=== PATIENT | female | born 1970 | race Caucasian/White ===

== ENCOUNTER 2018-05-16 18:04 | Emergency (ER) | payer OTHER, SELFPAY ==
[2018-05-16 18:05] VITALS: BP 159/102; PULSE 92; RESP 16; TEMP 36.7; O2SAT 99; BMI 38.7
[2018-05-16 18:41] LABS: Mucous, Urine 0 SEEN /hpf (<or=2+)
[2018-05-16 18:48] LABS: Color, Urine Brown (Yellow); Glucose, Dipstick Normal (Normal); Ketone-Dipstick 5 mg/dl (Negative); Leukocyte Esterase-Dipstick 500 /ul (Negative); Nitrite-Dipstick Positive (Negative); Occult Blood-Urine 250 /ul (Negative); Protein-Dipstick 100 mg/dl (Negative); Urine Clarity Cloudy (Clear); Urine Urobilinogen 1 mg/dl (Normal)
[2018-05-16 18:55] LABS: Internal QC Validated? YES +Cl - CLEAR BKGD; Pregnancy, Urine Negative Negative
[2018-05-16 18:56] LABS: Urine Bilirubin Dipstick 1 mg/dL (Negative)
[2018-05-16 19:10] LABS: Red Blood Cells-Urine > 100 SEEN /hpf (0-5); White Blood Cells >100 SEEN /hpf (0-5)
[2018-05-16 19:11] LABS: Bacteria 1+ /hpf (None Seen); Squamous Epithelial Cells - UA 0-5 SEEN /hpf (5-10)
--- NOTE | 2018-05-16 19:17 | ED.DCSUM_ITS ---
- ER Visit Summary Date of Service: 05/16/18 Chief Complaint: UTI History of Present Illness: The patient is a 47 F with burning and frequency when she urinates. This all started today. Nothing brought in on or made it worse. Nothing seems to make it better. She had similar symptoms in the past with a urinary tract infection. Physical Examination: Vital signs unremarkable except for a blood pressure of 159/102. Nontoxic and in no acute distress. Back is nontender. Skin appears normal. Test Results: test negative. Urinalysis reflects a UTI. Emergency Department Course and Treatment: Patient was treated with a dose of Keflex here. She was given a prescription. Follow-up with primary care to recheck. Treatment Plan: As above Disposition: Discharged Impression: 1. Acute cystitis This note was generated with [employer] dictation software. It may contain incorrect words, spelling, and punctuation that were not noted in review of the chart prior to signing ED Disposition - Plan for ED Patient: Chief Complaint: Complaint Referrals: Abel Humphries, CATIA-C [Primary Care Provider] -
--- NOTE | 2018-05-16 19:18 | DCINST.ED_ITS ---
ED Disposition - Plan for ED Patient: Chief Complaint: Complaint Instructions: ED UTI Cystitis Female Prescriptions: Cephalexin [Keflex] 500 mg PO Q6 #28 cap Ibuprofen [Motrin] 800 mg PO TID PRN PRN #20 tab PRN Reason: Pain Referrals: Abel Humphries, LIAISON OFFICER-C [Primary Care Provider] -
[2018-05-16] MEDS: Cephalexin 250 MG Capsule 500 MG PO (19:42)
[2018-05-16 19:44] VITALS: BP 127/86; PULSE 73; RESP 18; O2SAT 95
== END 2018-05-16 19:45 | disposition home or self-care (01) ==
LOC: ED 18:47
PROVIDERS: Emergency Provider Emergency Medicine; Family Provider Nurse Practitioner Family; PCP Nurse Practitioner Family
DX: N30.00 Acute cystitis without hematuria (principal); B96.89 Other specified bacterial agents as the cause of diseases classified elsewhere; Z87.440 Personal history of urinary (tract) infections; I10 Essential (primary) hypertension
CPT/HCPCS: 81001; 81025; 99283

== ENCOUNTER 2018-12-31 23:08 | Emergency (ER) | payer OTHER, SELFPAY ==
[2018-12-31 23:10] VITALS: BP 153/99; PULSE 81; RESP 16; TEMP 36.7; O2SAT 99; BMI 41.3
--- NOTE | 2018-12-31 23:28 | ED.VISSUMM ---
- ER Visit Summary Date of Service: 12/31/18 Chief Complaint: Wedding ring stuck History of Present Illness: The patient is a 48 F who presents for wedding ring removal after her wedding ring got stuck on her left ring finger. Patient was trying to remove it without any success. Her finger swelled up instead and she cannot get it off anymore. She denies any other complaints other than pain and swelling of the finger. Physical Examination: Patient is awake and alert in no distress. Patient has a wedding ring on the left ring finger with distal erythema and edema, small amount of abrasion and contusion noted from ring removal attempts. Sensation and motor function intact. Remainder of exam unremarkable. Test Results: [] Emergency Department Course and Treatment: The base of the finger was cleansed and a digital block was performed with 1% lidocaine. Good anesthesia was achieved. The ring was then removed by compressing the distal finger with the elastic band from a nonrebreather, tucking it under the ring, and slowly unraveling the nonrebreather strap which progressed the ring distally over the PIP joint. The ring was very tight fitting, and in the process of going over the PIP, it did result in some further skin abrasions and contusions. Patient's tetanus was updated after this procedure. The finger was then cleansed and bacitracin ointment was applied and dressing was applied. Patient was given wound care instructions. After the procedure, patient had active range of motion of the finger and cap refill was brisk. Anesthesia still present from the digital block. Patient discharged home with the ring removed and intact. Treatment Plan: [] Disposition: [] Impression: [Wedding ring removal, skin abrasion and contusion This note was generated with [employer] dictation software. It may contain incorrect words, spelling, and punctuation that were not noted in review of the chart prior to signing ED Disposition - Plan for ED Patient: Disposition: Home or Assisted Living Instructions: Skin Avulsion Referrals: Abel Humphries NP-C [Primary Care Provider] - Additional Instructions: Your ring was removed tonight. In the process of removing it, your finger got some abrasions and contusions. Your tetanus has been updated. Please keep the finger clean and protected with bandaging. Apply antibiotic ointment twice daily or after washing the area. Apply ice to help with swelling and pain. Use [id number] pain medication as needed. If you have any worsening of your condition or any new concerning symptoms, please return immediately to the emergency department for another evaluation.
[2019-01-01] MEDS: Diphth,Pertuss(Acell),Tet Vac 0.5 ML Vial IM (00:38)
== END 2019-01-01 00:40 | disposition home or self-care (01) ==
PROVIDERS: Emergency Provider Emergency Medicine; Family Provider Nurse Practitioner Family; PCP Nurse Practitioner Family
DX: S60.445A External constriction of left ring finger, initial encounter (principal); S60.042A Contusion of left ring finger without damage to nail, initial encounter; S60.415A Abrasion of left ring finger, initial encounter; W49.04XA Ring or other jewelry causing external constriction, initial encounter
CPT/HCPCS: 64450; 90471; 90715; 99282

== ENCOUNTER 2019-01-10 21:58 | Emergency (ER) | payer OTHER, SELFPAY ==
[2019-01-10 21:59] VITALS: BP 145/107; PULSE 106; RESP 15; TEMP 36.7; O2SAT 99; BMI 41.3
[2019-01-10 22:19] LABS: Bacteria 0 SEEN /hpf (None Seen); Mucous, Urine 0 SEEN /hpf (<or=2+)
[2019-01-10 22:22] LABS: Color, Urine Yellow (Yellow); Glucose, Dipstick Normal (Normal); Ketone-Dipstick 5 mg/dl (Negative); Leukocyte Esterase-Dipstick 500 /ul (Negative); Nitrite-Dipstick Negative (Negative); Occult Blood-Urine 250 /ul (Negative); Protein-Dipstick 30 mg/dl (Negative); Urine Bilirubin Dipstick Negative (Negative); Urine Clarity Sl. Cloudy (Clear); Urine Urobilinogen 1 mg/dl (Normal)
[2019-01-10 22:29] LABS: Amorphous Sediment 1+ URATE; Internal QC Validated? YES +Cl - CLEAR BKGD; Pregnancy, Urine Negative Negative; Red Blood Cells-Urine 50-100 SEEN /hpf (0-5); Squamous Epithelial Cells - UA 0-5 SEEN /hpf (5-10); White Blood Cells 50-100 SEEN /hpf (0-5)
--- NOTE | 2019-01-10 23:30 | ED.DCSUM_ITS ---
- ER Visit Summary Date of Service: 01/10/19 Chief Complaint: Dysuria History of Present Illness: The patient is a 48 F who states that yesterday she began to feel a small amount of dysuria and frequency. This is gotten worse today. She feels an incomplete bladder emptying described as having to urinate frequently with small amounts. She believes she is also seen some blood in the urine. No fevers. No back pain. No nausea or vomiting. She is only had 2 prior UTIs in the past. Medical history includes hypertension. She is a non- smoker. Physical Examination: Afebrile vital signs stable Gen: Well-nourished well-developed Head: Normocephalic atraumatic Eyes: Perrl EOMI ENT: TMs clear no rhinorrhea moist mucous membranes Neck: Supple no lymphadenopathy no JVD nontender CVS: Regular rate rhythm no murmurs normal S1-S2 Respiratory: No distress clear to auscultation bilaterally chest nontender Abdomen: Soft nontender nondistended normal bowel sounds no masses Back: Nontender Extremity: Nontender no edema Skin: Normal color no rash Neuro: alert orientated ?3 CN II-XII intact normal strength sensation Psych: Normal affect normal mood Test Results: Urinalysis demonstrated 50-100 red blood cells 50-100 white blood cells 0-5 epithelial cells and 0 bacteria. Leukocyte esterase positive nitrate negative. test negative. Emergency Department Course and Treatment: Patient was started on Macrobid and Pyridium. Urine culture will be sent. Return if worsening or concerns follow- up with primary care if not improving Impression: 1. Acute cystitis This note was generated with [employer] dictation software. It may contain incorrect words, spelling, and punctuation that were not noted in review of the chart prior to signing ED Disposition - Plan for ED Patient: Disposition: Home or Assisted Living Instructions: Bladder Infection, Female (Adult) Prescriptions: Nitrofurantoin Macrocrystals [Macrobid] 100 mg PO Q12 #10 cap Prescription Printed Phenazopyridine HCl [Pyridium] 200 mg PO TID #6 tab Prescription Printed Referrals: Abel Humphries, RN PHYSICIAN OFFICE-C [Primary Care Provider] - 1 Week if not improving
[2019-01-10] MEDS: Nitrofurantoin Macrocrystals 100 MG Capsule PO (23:41)
[2019-01-10] MEDS: Phenazopyridine 95 MG Tablet 190 MG PO (23:41)
[2019-01-10 23:47] VITALS: RESP 14; RESP 16
== END 2019-01-10 23:49 | disposition home or self-care (01) ==
LOC: ED 23:44
PROVIDERS: Emergency Provider Emergency Medicine; Family Provider Nurse Practitioner Family; PCP Nurse Practitioner Family
DX: N30.00 Acute cystitis without hematuria (principal); I10 Essential (primary) hypertension
CPT/HCPCS: 81001; 81025; 87077; 87086; 87088; 87186; 99282

== ENCOUNTER → 2019-01-29 07:58 | Outpatient (CLI) | payer OTHER, SELFPAY ==
[2019-01-10 21:59] VITALS: BMI 41.3
[2019-01-29 09:08] LABS: Hematocrit 41.3 % (37-47); Hemoglobin 13.5 g/dL (12.0-15.0); Mean Corp Hgb Conc 32.7 g/dL (32-36); Mean Corpuscular Volume 85.7 fL (81-99); Mean Platelet Vol. 9.6 fl (6.2-12.0); Platelet Count 269 K/mm3 (150-450); RBC Distribution Width CV 13.5 % (11.6-14.6); RBC Distribution Width SD 41.9 fl (35.1-43.9); Red Blood Count 4.82 M/mm3 (4.2-5.4); White Blood Count 6.9 K/mm3 (4.4-11.0)
[2019-01-29 09:41] LABS: ALB/GLOB Ratio 0.8 RATIO (0.9-2.4); AST(SGOT) 11 U/L (15-37); Alanine Aminotransfer ALT/SGPT 24 U/L (13-56); Albumin, Serum 3.4 g/dL (3.2-5.0); Alkaline Phosphatase 111 U/L (45-117); Anion Gap 5 (5-15); BUN 24 mg/dL (7-18); BUN/Creat Ratio 25.1 RATIO (10-20); Calcium,Total 8.9 mg/dL (8.5-10.1); Chloride 108 mmol/L (98-107); Cholesterol 167 mg/dL (200); Creatinine, Serum 0.96 mg/dL (0.55-1.02); EST Glomerular Filtration Rate 66 mL/min (>60); Est Glom Filt Rate - Afr Amer 80 mL/min (>60); Globulin 4.3 g/dL (2.2-4.2); Glucose 86 mg/dL (74-106); High Density Lipoprotein 39 mg/dL; Potassium 4.1 mmol/L (3.5-5.1); Protein, Total 7.7 g/dL (6.4-8.2); Sodium Level 143 mmol/L (136-145); Triglycerides 128 mg/dL; Very Low Density Lipoprotein 26 mg/dL (5-40)
== END ==
PROVIDERS: Family Provider Nurse Practitioner Family; PCP Nurse Practitioner Family; Referring Provider Nurse Practitioner Family; Visit Provider Nurse Practitioner Family
DX: Z13.220 Encounter for screening for lipoid disorders (principal); I10 Essential (primary) hypertension
CPT/HCPCS: 36415; 80053; 80061; 85027

== ENCOUNTER 2019-05-13 14:48 | Emergency (ER) | payer OTHER, SELFPAY ==
[2019-05-13 14:49] VITALS: BP 160/99; PULSE 93; RESP 93; TEMP 36.8; O2SAT 18; BMI 42.4
--- NOTE | 2019-05-13 15:08 | ED.DCSUM_ITS ---
History of Present Illness Chief Complaint: Vag Bleeding Informant: Patient Onset: Weeks Context: Gradual Onset Timing: Continuous Current Severity: Moderate Maximum Severity: Moderate Narrative: The patient presents to the emergency department heavy vaginal bleeding. She states is been going on for the past 6 weeks. She will follow with her primary care. She states that she had an outpatient ultrasound which demonstrated a thickened endometrium. She was started on some medication but she cannot remember what it was. She states that slow the bleeding but it never stopped. She states since being off the medication, her bleeding has no increased. She states that she is going through a pad an hour. She denies any abdominal pain or cramping. She is not on anticoagulants. She is scheduled to see RESTAURANT KITCHEN AND SERVICE MANAGER next week but was concerned with the amount of bleeding. Prior similar symptoms: Yes Recent Illness/Hospitalization: No Past Medical History - Allergies and Home Meds Allergies/Adverse Reactions: Allergies No Known Allergies Allergy (Verified 05/13/19 14:49) Primary Care Physician: Lalita Spicer MD [STAFF PHYSICIAN] - Prior records reviewed: Yes Past Medical History: - - Hypertension Surgical History: - - Smoking Status: Never smoker - Family History Paternal Family History: Family History (Last Updated 11/21/17 @ 11:39 by Marta Carter) Other Breast cancer Family History: Reports: - - no sig PFMHx of CAD in 50's (+ in 60's and up) Review of Systems General: Denies: Chills, Fever, Sweats Eyes: Denies: Visual changes - bilaterally, Diplopia ENT: Denies: Rhinorrhea, Sore throat Cardiovascular: Denies: Chest pain, Palpitations Respiratory: Denies: Dyspnea, Cough, Dyspnea on exertion Gastrointestinal: Denies: Abdominal pain, Nausea, Vomiting, Diarrhea, Melena, Hematochezia Genitourinary: Denies: Dysuria, Hematuria, Frequency Musculoskeletal: Denies: Back pain, Extremity Pain Skin: Denies: Rash, Wounds Neurological: Denies: Headache, Weakness, Numbness Psych: Denies: Depression Endocrine: Denies: Polyuria Hematologic: Denies: Easy bruising Physical Exam Vital Signs/Narrative: Vital Signs Temp Pulse Resp BP Pulse Ox 05/13/19 14:49 98.3 F 93 93 H 160/99 H 18 Inital Vital Signs reviewed: Yes General: Well nourished, Well developed, No Acute Distress Head: Normocephalic, Atraumatic Eyes: Perrl, EOMI ENT: Moist mucous membranes, No rhinorrhea Neck: Supple, Nontender Cardiovascular: Regular rate, Regular rhythm, No murmurs Respiratory: No distress, CTA bilaterally, Chest nontender Abdomen: Soft, Nontender, Nondistended, Normal bowel sounds Back: Nontender, Normal Inspection Extremities: Nontender, No edema Skin: Normal color, No rash Neurological: Alert, Oriented x3, Cranial nerves II-XII grossly intact, Normal Strength, Normal Sensation Psychological: Normal affect, Normal Mood Diagnostic/Tx/Re-eval Abnormal Lab Results 05/13/19 05/13/19 05/13/19 15:15 15:15 15:25 WBC 7.8 RBC 4.38 Hgb 12.3 Hct 37.6 MCV 85.8 MCH 28.1 MCHC 32.7 RDW Std Deviation 42.5 RDW Coeff of Kristyn 13.5 Plt Count 271 MPV 9.6 Immature Gran % (Auto) 0.300 Neut % (Auto) 64.5 Lymph % (Auto) 27.6 [place] % (Auto) 5.8 Eos % (Auto) 1.2 Baso % (Auto) 0.6 Absolute Neuts (auto) 5.0 Absolute Lymphs (auto) 2.14 Nucleated RBC % 0 Atypical Lymphocytes 1+ Platelet Estimate ADEQUATE RBC Morphology NORM C+C Sodium 140 Potassium 4.0 Chloride 108 H Carbon Dioxide 25.0 Anion Gap 7 BUN 19 H Creatinine 0.94 Estim Creat Clear Calc 71.95 Est GFR (MDRD) Af Amer 82 Est GFR (MDRD) Non-Af 68 BUN/Creatinine Ratio 20.3 H Glucose 106 Calcium 8.3 L Total Bilirubin 0.50 AST 19 ALT 16 Alkaline Phosphatase 101 Total Protein 7.4 Albumin 3.4 Globulin 4.0 Albumin/Globulin Ratio 0.8 L Urine Test Negative - Medical Decision Making I was able to get the results of the patient's ultrasound. She had a prominent endometrium at 23 mm, but no significant dangerous findings. Hemoglobin was obtained was negative. I did discuss the patient with Dr. Quinonez, the patient's baggagemaster. We are going to start the patient on TXA. She is going to be seen in the office on Thursday. The patient is comfortable with this plan of care. Impression 1. Dysfunctional uterine bleeding ED Disposition - Plan for ED Patient: Disposition: Home or Assisted Living Instructions: Dysfunctional Uterine Bleeding Prescriptions: Tranexamic Acid 1,300 mg PO Q8 #20 tab Prescription Printed Referrals: Lalita Spicer MD [STAFF PHYSICIAN] -
[2019-05-13 15:28] LABS: Absolute Lymphocyte Count 2.14 X10^3/uL (0.83-4.51); Basophil# 0.05 X10^3/uL; Basophil% 0.6 % (0-1); Eosinophil# 0.09 X10^3/uL; Eosinophils% 1.2 % (0-5); Hematocrit 37.6 % (37-47); Hemoglobin 12.3 g/dL (12.0-15.0); Lymphocyte # 2.14 X10^3/ul (4.0); Lymphocyte % 27.6 % (19-41); Mean Corp Hgb Conc 32.7 g/dL (32-36); Mean Corpuscular Hgb 28.1 pg (27.0-32.0); Mean Corpuscular Volume 85.8 fL (81-99); Mean Platelet Vol. 9.6 fl (6.2-12.0); Monocyte# 0.45 X10^3/uL; Monocyte% 5.8 % (0-10); NRBC Flagged by Analyzer 0 % (0-5); Neutrophil % 64.5 % (47-70); POSITIVE MORPHOLOGY YES; Platelet Count 271 K/mm3 (150-450); RBC Distribution Width CV 13.5 % (11.6-14.6); RBC Distribution Width SD 42.5 fl (35.1-43.9); Red Blood Count 4.38 M/mm3 (4.2-5.4); White Blood Count 7.8 K/mm3 (4.4-11.0)
[2019-05-13 15:56] LABS: Internal QC Validated? YES +Cl - CLEAR BKGD; Pregnancy, Urine Negative Negative
[2019-05-13 15:56] LABS: ALB/GLOB Ratio 0.8 RATIO (0.9-2.4); AST(SGOT) 19 U/L (15-37); Alanine Aminotransfer ALT/SGPT 16 U/L (13-56); Albumin, Serum 3.4 g/dL (3.2-5.0); Alkaline Phosphatase 101 U/L (45-117); Anion Gap 7 (5-15); BUN 19 mg/dL (7-18); BUN/Creat Ratio 20.3 RATIO (10-20); Calcium,Total 8.3 mg/dL (8.5-10.1); Chloride 108 mmol/L (98-107); Creatinine, Serum 0.94 mg/dL (0.55-1.02); EST Glomerular Filtration Rate 68 mL/min (>60); Est Glom Filt Rate - Afr Amer 82 mL/min (>60); Estimated Creatinine Clearance 71.95 ml/min; Glucose 106 mg/dL (74-106); Protein, Total 7.4 g/dL (6.4-8.2); Sodium Level 140 mmol/L (136-145)
[2019-05-13 16:11] LABS: Differential Indicated SCAN CRITERIA MET
[2019-05-13 16:12] LABS: Atypical Lymphocyte 1+ %; Platelet Estimate ADEQUATE (ADEQ); Red Cell Morphology NORM C+C NORMAL (NORM C&C)
[2019-05-13 16:31] VITALS: PULSE 84; RESP 16; O2SAT 98
== END 2019-05-13 16:31 | disposition home or self-care (01) ==
LOC: ED 15:05
PROVIDERS: Emergency Provider Emergency Medicine; Family Provider Nurse Practitioner Family; PCP Nurse Practitioner Family
DX: N93.8 Other specified abnormal uterine and vaginal bleeding (principal); I10 Essential (primary) hypertension
CPT/HCPCS: 80053; 81025; 85025; 99283; A4216

== ENCOUNTER → 2019-08-08 07:06 | Outpatient (CLI) | payer OTHER, SELFPAY ==
[2019-08-08 07:52] LABS: Thyroid Stim Hormone (TSH) 2.32 uIU/mL (0.358-3.74)
== END ==
PROVIDERS: PCP Nurse Practitioner Family; Referring Provider Nurse Practitioner Family; Visit Provider Nurse Practitioner Family
DX: E03.9 Hypothyroidism, unspecified (principal)
CPT/HCPCS: 36415; 84439; 84443

== ENCOUNTER → 2019-11-03 06:54 | Outpatient (CLI) | payer OTHER, SELFPAY ==
[2019-11-03 07:47] LABS: Hematocrit 39.7 % (37-47); Hemoglobin 12.1 g/dL (12.0-15.0); Mean Corp Hgb Conc 30.5 g/dL (32-36); Mean Corpuscular Hgb 24.5 pg (27.0-32.0); Mean Corpuscular Volume 80.4 fL (81-99); Mean Platelet Vol. 9.7 fl (6.2-12.0); Platelet Count 295 K/mm3 (150-450); RBC Distribution Width SD 40.5 fl (35.1-43.9); Red Blood Count 4.94 M/mm3 (4.2-5.4); White Blood Count 6.7 K/mm3 (4.4-11.0)
[2019-11-03 08:15] LABS: ALB/GLOB Ratio 0.8 RATIO (0.9-2.4); AST(SGOT) 13 U/L (15-37); Alanine Aminotransfer ALT/SGPT 19 U/L (13-56); Albumin, Serum 3.3 g/dL (3.2-5.0); Alkaline Phosphatase 118 U/L (45-117); Anion Gap 4 (5-15); BUN 16 mg/dL (7-18); Calcium,Total 8.6 mg/dL (8.5-10.1); Chloride 105 mmol/L (98-107); Cholesterol 167 mg/dL (200); EST Glomerular Filtration Rate 63 mL/min (>60); Est Glom Filt Rate - Afr Amer 76 mL/min (>60); Globulin 4.3 g/dL (2.2-4.2); Glucose 91 mg/dL (74-106); High Density Lipoprotein 31 mg/dL; Potassium 3.6 mmol/L (3.5-5.1); Protein, Total 7.6 g/dL (6.4-8.2); Sodium Level 138 mmol/L (136-145); Thyroid Stim Hormone (TSH) 3.15 uIU/mL (0.358-3.74); Triglycerides 160 mg/dL; Very Low Density Lipoprotein 32 mg/dL (5-40)
== END ==
PROVIDERS: PCP Nurse Practitioner Family; Visit Provider Nurse Practitioner Family
DX: I10 Essential (primary) hypertension (principal); E78.5 Hyperlipidemia, unspecified; E03.9 Hypothyroidism, unspecified
CPT/HCPCS: 36415; 80053; 80061; 84443; 85027

== ENCOUNTER 2020-04-19 08:01 | Emergency (ER) | payer OTHER, SELFPAY ==
[2020-04-19 08:02] VITALS: BP 180/105; PULSE 84; RESP 16; TEMP 36.2; O2SAT 100; BMI 39.2
--- NOTE | 2020-04-19 08:07 | ED.DCSUM_ITS ---
History of Present Illness Chief Complaint: General Illness Informant: Patient Narrative: 49-year-old female presenting for medication refill. She states she is been out of her antidepressants as well as her hydrochlorothiazide for about a week. She tried to call her doctor's office 2 days ago and did not get a response. Yesterday she called [facility] to see if they had sent in a refill and they had not. Her blood pressures been slightly elevated although she does not have any headache, chest pain, shortness of breath, lightheadedness, dizziness or other red flag symptoms. Patient also incidentally notes that since she is in the emergency room she wants to have her left arm evaluated. She states from the left elbow down to the left wrist she gets intermittent paresthesias. This is worse when she holds her arm up on the steering wheel for an extended period time. Sometimes she has to put her arm down and it will resolve. She has had no trauma. It is not significantly painful. Patient also reports that last evening she was concerned because she abruptly woke from sleep without any other symptoms and then went back to sleep. She is not had any other problems related to this. She states that she is never happened before. - Past Medical History (1) HTN (hypertension) Status: Chronic Past Medical History - Allergies and Home Meds Allergies/Adverse Reactions: Allergies No Known Allergies Allergy (Verified 04/19/20 08:10) Primary Care Physician: Abel Humphries ASSISTANT CROSS COUNTRY COACH, ASSISTANT CROSS COUNTRY COACH-C [Primary Care Provider] - Prior records reviewed: Yes Past Medical History: - - Tension, depression, hypothyroidism Surgical History: - - Lives: Spouse/ Significant Other, With Family Smoking Status: Smoker, status unknown Alcohol: None Drugs: None - Family History Paternal Family History: Family History (Last Updated 11/21/17 @ 11:39 by Marta Carter) Other Breast cancer Family History: Reports: - - no sig PFMHx of CAD in 50's (+ in 60's and up) Review of Systems General: Denies: Chills, Fever, Sweats Eyes: Denies: Visual changes - bilaterally, Diplopia ENT: Denies: Rhinorrhea, Sore throat Cardiovascular: Denies: Chest pain, Palpitations Respiratory: Denies: Dyspnea, Cough, Dyspnea on exertion Gastrointestinal: Denies: Abdominal pain, Nausea, Vomiting, Diarrhea, Melena, Hematochezia Genitourinary: Denies: Dysuria, Hematuria, Frequency Musculoskeletal: Reports: Extremity Pain - Left forearm Skin: Denies: Rash, Abscess Neurological: Reports: Parasthesia - Left forearm. Denies: Headache Psych: Denies: Depression, Anxiety, Suicidal thoughts, Suicidal ideations Physical Exam Vital Signs/Narrative: Vital Signs Temp Pulse Resp BP Pulse Ox 04/19/20 08:02 97.2 F L 84 16 180/105 H 100 Inital Vital Signs reviewed: Yes General: Well nourished, No Acute Distress Head: Normocephalic, Atraumatic Eyes: Perrl, EOMI ENT: Moist mucous membranes, No rhinorrhea Cardiovascular: Regular rate, Regular rhythm Respiratory: No distress, CTA bilaterally Extremities: - - No reproducible tenderness to palpation of the left forearm to palpation. Flexion, extension, pronation, supination do not elicit pain. Left wrist has a negative Tinel sign. Jules's test is normal. Left hand neurovascular intact brisk cap refill all 5 fingers. Skin: Normal color, No rash, Cyanosis Neurological: Alert, Oriented x3 Psychological: Normal affect, Normal Mood Diagnostic/Tx/Re-eval - Medical Decision Making Patient presents for medication refill for her hydrochlorothiazide, sertraline, buspirone, venlafaxine. Patient states that she called her pharmacy while she was here and a prescription for the venlafaxine is already submitted. She needs prescriptions for the other 3. I did send these to the pharmacy. In regards to her paresthesia/pain in left forearm I do not believe this represents any kind of stroke or bony abnormality. I am unable to elicit it on examination. Patient requests a wrist splint for comfort. This was provided. Patient will be discharged home to follow-up with her PCP. Impression: 1. Medication refill 2. Paresthesia ED Disposition - Plan for ED Patient: Disposition: Home or Assisted Living Instructions: ED Paraesthesias Prescriptions: busPIRone [Buspar] 10 mg PO TID #90 tab Transmission Status: [id number] Hydrochlorothiazide 0 mg PO DAILY #30 capsule Hydrochlorothiazide 12.5 mg PO DAILY #30 cap Transmission Status: Pending to [id number] Sertraline HCl 25 mg PO DAILY #30 tab Transmission Status: Pending to [id number] Referrals: Yandel,Abel Mian ASSISTANT CROSS COUNTRY COACH, ASSISTANT CROSS COUNTRY COACH-C [Primary Care Provider] -
== END 2020-04-19 08:57 | disposition home or self-care (01) ==
PROVIDERS: Emergency Provider Student in an Organized Health Care Education/Training Program; PCP Nurse Practitioner Family
DX: Z76.0 Encounter for issue of repeat prescription (principal); R20.2 Paresthesia of skin; E03.9 Hypothyroidism, unspecified; I10 Essential (primary) hypertension; F32.9 Major depressive disorder, single episode, unspecified
CPT/HCPCS: 99283

== ENCOUNTER → 2020-05-05 08:22 | Outpatient (CLI) | payer OTHER, SELFPAY ==
[2020-04-19 08:02] VITALS: BMI 39.2
[2020-05-05 08:40] LABS: Hematocrit 40.5 % (37-47); Hemoglobin 12.3 g/dL (12.0-15.0); Mean Corp Hgb Conc 30.4 g/dL (32-36); Mean Corpuscular Hgb 23.6 pg (27.0-32.0); Mean Corpuscular Volume 77.6 fL (81-99); Mean Platelet Vol. 9.5 fl (6.2-12.0); Platelet Count 236 K/mm3 (150-450); RBC Distribution Width CV 15.4 % (11.6-14.6); RBC Distribution Width SD 43.4 fl (35.1-43.9); Red Blood Count 5.22 M/mm3 (4.2-5.4)
[2020-05-05 09:11] LABS: ALB/GLOB Ratio 0.8 RATIO (0.9-2.4); AST(SGOT) 29 U/L (15-37); Alanine Aminotransfer ALT/SGPT 42 U/L (13-56); Albumin, Serum 3.5 g/dL (3.2-5.0); Alkaline Phosphatase 128 U/L (45-117); Anion Gap 5 (5-15); BUN 21 mg/dL (7-18); BUN/Creat Ratio 18.9 RATIO (10-20); Calcium,Total 8.4 mg/dL (8.5-10.1); Chloride 108 mmol/L (98-107); Cholesterol 140 mg/dL (200); Creatinine, Serum 1.11 mg/dL (0.55-1.02); EST Glomerular Filtration Rate 56 mL/min (>60); Est Glom Filt Rate - Afr Amer 67 mL/min (>60); Globulin 4.5 g/dL (2.2-4.2); Glucose 98 mg/dL (74-106); High Density Lipoprotein 38 mg/dL; Potassium 3.5 mmol/L (3.5-5.1); Sodium Level 140 mmol/L (136-145); T4 Free Direct 0.96 ng/dL (0.76-1.46); Thyroid Stim Hormone (TSH) 1.21 uIU/mL (0.358-3.74); Triglycerides 69 mg/dL; Very Low Density Lipoprotein 14 mg/dL (5-40)
== END ==
PROVIDERS: PCP Nurse Practitioner Family; Referring Provider Nurse Practitioner Family; Visit Provider Nurse Practitioner Family
DX: E78.5 Hyperlipidemia, unspecified (principal); E03.9 Hypothyroidism, unspecified
CPT/HCPCS: 36415; 80053; 80061; 84439; 84443; 85027

== ENCOUNTER → 2020-11-04 08:44 | Outpatient (CLI) | payer OTHER, SELFPAY ==
[2020-11-04 09:20] LABS: Hematocrit 38.3 % (37-47); Hemoglobin 11.1 g/dL (12.0-15.0); Mean Corpuscular Hgb 23.2 pg (27.0-32.0); Mean Platelet Vol. 9.8 fl (6.2-12.0); Platelet Count 308 K/mm3 (150-450); RBC Distribution Width CV 16.2 % (11.6-14.6); RBC Distribution Width SD 46.7 fl (35.1-43.9); Red Blood Count 4.79 M/mm3 (4.2-5.4); White Blood Count 4.6 K/mm3 (4.4-11.0)
[2020-11-04 09:40] LABS: ALB/GLOB Ratio 0.8 RATIO (0.9-2.4); AST(SGOT) 13 U/L (15-37); Alanine Aminotransfer ALT/SGPT 22 U/L (13-56); Albumin, Serum 3.5 g/dL (3.2-5.0); Alkaline Phosphatase 131 U/L (45-117); Anion Gap 3 (5-15); BUN 23 mg/dL (7-18); BUN/Creat Ratio 23.3 RATIO (10-20); Calcium,Total 8.7 mg/dL (8.5-10.1); Chloride 107 mmol/L (98-107); Cholesterol 166 mg/dL (200); Creatinine, Serum 0.99 mg/dL (0.55-1.02); EST Glomerular Filtration Rate 63 mL/min (>60); Est Glom Filt Rate - Afr Amer 77 mL/min (>60); Globulin 4.5 g/dL (2.2-4.2); Glucose 96 mg/dL (74-106); High Density Lipoprotein 38 mg/dL; Potassium 3.9 mmol/L (3.5-5.1); Sodium Level 137 mmol/L (136-145); T4 Free Direct 0.92 ng/dL (0.76-1.46); Thyroid Stim Hormone (TSH) 1.83 uIU/mL (0.358-3.74); Triglycerides 94 mg/dL; Very Low Density Lipoprotein 19 mg/dL (5-40)
[2020-11-05 08:52] LABS: Vitamin D,25 Hydroxy 16.8 ng/mL
== END ==
PROVIDERS: PCP Nurse Practitioner Family; Referring Provider Nurse Practitioner Family; Visit Provider Nurse Practitioner Family
DX: I10 Essential (primary) hypertension (principal); E78.5 Hyperlipidemia, unspecified; N28.9 Disorder of kidney and ureter, unspecified; E03.9 Hypothyroidism, unspecified
CPT/HCPCS: 36415; 80053; 80061; 82306; 84439; 84443; 85027

== ENCOUNTER → 2021-05-18 07:40 | Outpatient (CLI) | payer OTHER, SELFPAY ==
[2021-05-18 07:58] LABS: Hematocrit 41.8 % (37-47); Hemoglobin 13.6 g/dL (12.0-15.0); Mean Corp Hgb Conc 32.5 g/dL (32-36); Mean Corpuscular Hgb 26.8 pg (27.0-32.0); Mean Corpuscular Volume 82.4 fL (81-99); Mean Platelet Vol. 9.1 fl (6.2-12.0); Platelet Count 256 K/mm3 (150-450); RBC Distribution Width CV 13.9 % (11.6-14.6); RBC Distribution Width SD 41.5 fl (35.1-43.9); Red Blood Count 5.07 M/mm3 (4.2-5.4); White Blood Count 5.5 K/mm3 (4.4-11.0)
[2021-05-18 08:33] LABS: ALB/GLOB Ratio 0.7 RATIO (0.9-2.4); AST(SGOT) 13 U/L (15-37); Alanine Aminotransfer ALT/SGPT 28 U/L (13-56); Albumin, Serum 3.3 g/dL (3.2-5.0); Alkaline Phosphatase 128 U/L (45-117); Anion Gap 4 (5-15); BUN 15 mg/dL (7-18); BUN/Creat Ratio 14.9 RATIO (10-20); Calcium,Total 8.8 mg/dL (8.5-10.1); Chloride 105 mmol/L (98-107); Creatinine, Serum 1.01 mg/dL (0.55-1.02); EST Glomerular Filtration Rate 62 mL/min (>60); Est Glom Filt Rate - Afr Amer 75 mL/min (>60); Globulin 4.6 g/dL (2.2-4.2); Glucose 94 mg/dL (74-106); Iron 60 ug/dL (50-170); Iron Binding Capacity,Total 320 ug/dL (250-450); Potassium 4.1 mmol/L (3.5-5.1); Protein, Total 7.9 g/dL (6.4-8.2); Sodium Level 140 mmol/L (136-145); T4 Free Direct 0.98 ng/dL (0.76-1.46); Thyroid Stim Hormone (TSH) 1.43 uIU/mL (0.358-3.74)
== END ==
PROVIDERS: PCP Nurse Practitioner Family; Visit Provider Nurse Practitioner Family
DX: I10 Essential (primary) hypertension (principal); D50.9 Iron deficiency anemia, unspecified; N28.9 Disorder of kidney and ureter, unspecified; E03.9 Hypothyroidism, unspecified
CPT/HCPCS: 36415; 80053; 83540; 83550; 84439; 84443; 85027

== ENCOUNTER → 2021-07-02 13:33 | Outpatient (CLI) | payer OTHER, SELFPAY ==
--- NOTE | 2021-07-02 13:46 | VDLE_ITS ---
Reason For Study: leg pain RIGHT GSV is normal. CFV is compressible, spontaneous, phasic, competent and demonstrates normal augmentation. FV is compressible, spontaneous, phasic, competent and demonstrates normal augmentation. POP V is compressible, spontaneous, phasic, competent and demonstrates normal augmentation. T/P Trunk is compressible. PTV is compressible. RT PerV is compressible. Procedure This is a venous duplex using B-mode, color flow and spectral Doppler. Exam performed in department. The exam was abbreviated due to the COVID 19 protocol. The exam was diagnostic. A preliminary report was called and/or faxed to Abel ZAMORA. VL/Venous Duplex US, Unilateral Interpretation Summary Deep veins of the right lower extremity are patent and compressible segmentally . There is no evidence of right lower extremity deep vein thrombosis. Valvular competence dayanara ears intact within the proximal deep venous system on the right . The right great saphenous vein a ppears patent and compressible segmentally. Ordering Physician: Abel Humphries Performed By: Dick Neely RVT
[2021-07-02 14:09] LABS: D-Dimer Quantitative (DVT/PE) 0.66 FEU/ug/m (0.27-0.49)
== END ==
PROVIDERS: PCP Nurse Practitioner Family; Referring Provider Nurse Practitioner Family; Visit Provider Nurse Practitioner Family
DX: M79.604 Pain in right leg (principal)
CPT/HCPCS: 36415; 85379; 93971

== ENCOUNTER → 2021-12-20 | Outpatient (CLI) | payer OTHER, SELFPAY ==
--- NOTE | 2021-12-20 14:53 | RAD_ITS ---
STUDY: XR Hand Min 3 Views REASON FOR EXAM: Female, 51 years old. DEQUERVAIN''S TENOSYNOVITIS TECHNIQUE: XR Hand Min 3 Views LEFT COMPARISON: None. FINDINGS: Normal radiocarpal articulation. Normal distal radioulnar joint. Normal visualized carpal bones. Normal carpal articulations Normal carpometacarpal articulation of the thumb. Normal second through fifth carpometacarpal joints. Normal metacarpi. Normal metacarpophalangeal joint of the thumb. Normal interphalangeal joint of the thumb. Normal proximal and distal phalanges of the thumb. Normal metacarpophalangeal joints of the second through fifth fingers. Normal proximal and distal interphalangeal joints of the second through fifth fingers. Normal phalanges of the second through fifth fingers. The soft tissue structures are unremarkable. RAD/Hand Min 3 Views IMPRESSION: There are no acute findings. Electronically Signed: Jeevan Wood MD at 15:22 EDT ,
== END | disposition home or self-care (01) ==
LOC: RAD 14:51
PROVIDERS: PCP Nurse Practitioner Family; Referring Provider Nurse Practitioner Family; Visit Provider Nurse Practitioner Family
DX: M65.4 Radial styloid tenosynovitis [de Quervain] (principal)
CPT/HCPCS: 73130

== ENCOUNTER → 2022-03-22 | Outpatient (CLI) | payer OTHER, SELFPAY ==
[2022-03-22 09:28] LABS: Hematocrit 42.6 % (37-47); Mean Corp Hgb Conc 32.9 g/dL (32-36); Mean Corpuscular Hgb 27.8 pg (27.0-32.0); Mean Corpuscular Volume 84.5 fL (81-99); Mean Platelet Vol. 10.6 fl (6.2-12.0); Platelet Count 306 K/mm3 (150-450); RBC Distribution Width SD 45.5 fl (35.1-43.9); Red Blood Count 5.04 M/mm3 (4.2-5.4); White Blood Count 6.1 K/mm3 (4.4-11.0)
[2022-03-22 09:57] LABS: ALB/GLOB Ratio 0.9 RATIO (0.9-2.4); AST(SGOT) 12 U/L (15-37); Alanine Aminotransfer ALT/SGPT 21 U/L (13-56); Albumin, Serum 3.8 g/dL (3.2-5.0); Alkaline Phosphatase 105 U/L (45-117); Amylase 61 U/L (25-115); Anion Gap 7 (5-15); BUN 21 mg/dL (7-18); Calcium,Total 9.3 mg/dL (8.5-10.1); Chloride 106 mmol/L (98-107); EST Glomerular Filtration Rate 62 mL/min (>60); Est Glom Filt Rate - Afr Amer 75 mL/min (>60); Globulin 4.2 g/dL (2.2-4.2); Glucose 86 mg/dL (74-106); Lipase 164 U/L (73-393); Sodium Level 141 mmol/L (136-145)
== END | disposition home or self-care (01) ==
LOC: LAB 07:52
PROVIDERS: PCP Nurse Practitioner Family; Referring Provider Nurse Practitioner Family; Visit Provider Nurse Practitioner Family
DX: R10.11 Right upper quadrant pain (principal); K82.8 Other specified diseases of gallbladder; K85.90 Acute pancreatitis without necrosis or infection, unspecified
CPT/HCPCS: 36415; 80053; 82150; 83690; 85027

== ENCOUNTER → 2022-05-17 | Outpatient (CLI) | payer OTHER, SELFPAY ==
[2022-05-17 08:28] LABS: Hematocrit 42.8 % (37-47); Hemoglobin 14.2 g/dL (12.0-15.0); Mean Corp Hgb Conc 33.2 g/dL (32-36); Mean Corpuscular Hgb 27.8 pg (27.0-32.0); Mean Corpuscular Volume 83.9 fL (81-99); Mean Platelet Vol. 9.7 fl (6.2-12.0); Platelet Count 269 K/mm3 (150-450); RBC Distribution Width CV 15.5 % (11.6-14.6); RBC Distribution Width SD 47.3 fl (35.1-43.9); White Blood Count 7.7 K/mm3 (4.4-11.0)
[2022-05-17 09:10] LABS: ALB/GLOB Ratio 0.8 RATIO (0.9-2.4); AST(SGOT) 17 U/L (15-37); Alanine Aminotransfer ALT/SGPT 31 U/L (13-56); Albumin, Serum 3.6 g/dL (3.2-5.0); Alkaline Phosphatase 125 U/L (45-117); Anion Gap 7 (5-15); BUN 19 mg/dL (7-18); BUN/Creat Ratio 21.4 RATIO (10-20); Calcium,Total 9.3 mg/dL (8.5-10.1); Chloride 107 mmol/L (98-107); Cholesterol 196 mg/dL (200); Creatinine, Serum 0.89 mg/dL (0.55-1.02); EST Glomerular Filtration Rate 71 mL/min (>60); Est Glom Filt Rate - Afr Amer 86 mL/min (>60); Globulin 4.5 g/dL (2.2-4.2); Glucose 92 mg/dL (74-106); High Density Lipoprotein 48 mg/dL; Potassium 3.7 mmol/L (3.5-5.1); Protein, Total 8.1 g/dL (6.4-8.2); Sodium Level 140 mmol/L (136-145); Thyroid Stim Hormone (TSH) 1.78 uIU/mL (0.358-3.74); Triglycerides 92 mg/dL; Very Low Density Lipoprotein 18 mg/dL (5-40)
== END | disposition home or self-care (01) ==
LOC: LAB 07:40
PROVIDERS: PCP Nurse Practitioner Family; Referring Provider Nurse Practitioner Family; Visit Provider Nurse Practitioner Family
DX: N28.9 Disorder of kidney and ureter, unspecified (principal); I10 Essential (primary) hypertension; E78.5 Hyperlipidemia, unspecified; E03.9 Hypothyroidism, unspecified; R94.5 Abnormal results of liver function studies
CPT/HCPCS: 36415; 80053; 80061; 84439; 84443; 85027

== ENCOUNTER → 2022-11-29 | Outpatient (CLI) | payer OTHER, SELFPAY ==
[2022-11-29 09:47] LABS: Hematocrit 40.9 % (37-47); Hemoglobin 13.3 g/dL (12.0-15.0); Mean Corp Hgb Conc 32.5 g/dL (32-36); Mean Corpuscular Hgb 26.9 pg (27.0-32.0); Mean Corpuscular Volume 82.6 fL (81-99); Mean Platelet Vol. 9.5 fl (6.2-12.0); Platelet Count 259 K/mm3 (150-450); RBC Distribution Width CV 14.3 % (11.6-14.6); RBC Distribution Width SD 42.7 fl (35.1-43.9); Red Blood Count 4.95 M/mm3 (4.2-5.4); White Blood Count 5.7 K/mm3 (4.4-11.0)
[2022-11-29 10:03] LABS: ALB/GLOB Ratio 0.8 RATIO (0.9-2.4); AST(SGOT) 16 U/L (15-37); Alanine Aminotransfer ALT/SGPT 22 U/L (13-56); Albumin, Serum 3.2 g/dL (3.2-5.0); Alkaline Phosphatase 157 U/L (45-117); Anion Gap 5 (5-15); BUN 20 mg/dL (7-18); BUN/Creat Ratio 23.2 RATIO (10-20); Calcium,Total 8.5 mg/dL (8.5-10.1); Chloride 107 mmol/L (98-107); Cholesterol 170 mg/dL (200); Creatinine, Serum 0.86 mg/dL (0.55-1.02); EST Glomerular Filtration Rate 74 mL/min (>60); Est Glom Filt Rate - Afr Amer 89 mL/min (>60); Globulin 4.2 g/dL (2.2-4.2); Glucose 96 mg/dL (74-106); High Density Lipoprotein 40 mg/dL; Potassium 4.3 mmol/L (3.5-5.1); Protein, Total 7.4 g/dL (6.4-8.2); Sodium Level 141 mmol/L (136-145); T4 Free Direct 0.97 ng/dL (0.76-1.46); Triglycerides 77 mg/dL; Very Low Density Lipoprotein 15 mg/dL (5-40)
[2022-11-29 10:18] LABS: Microalbumin,Random Urine < 5.0 mg/L (NO RANGE EST.)
== END | disposition home or self-care (01) ==
LOC: LAB 08:15
PROVIDERS: PCP Nurse Practitioner Family; Visit Provider Nurse Practitioner Family
DX: I10 Essential (primary) hypertension (principal); E78.5 Hyperlipidemia, unspecified; N28.9 Disorder of kidney and ureter, unspecified; E03.9 Hypothyroidism, unspecified
CPT/HCPCS: 36415; 80053; 80061; 82043; 84439; 85027

== ENCOUNTER → 2023-06-08 | Outpatient (CLI) | payer OTHER, SELFPAY ==
[2023-06-08 10:02] LABS: Hematocrit 43.1 % (37-47); Hemoglobin 13.4 g/dL (12.0-15.0); Mean Corp Hgb Conc 31.1 g/dL (32-36); Mean Corpuscular Hgb 26.1 pg (27.0-32.0); Mean Corpuscular Volume 83.9 fL (81-99); Mean Platelet Vol. 9.5 fl (6.2-12.0); Platelet Count 330 K/mm3 (150-450); RBC Distribution Width CV 14.2 % (11.6-14.6); RBC Distribution Width SD 43.6 fl (35.1-43.9); Red Blood Count 5.14 M/mm3 (4.2-5.4); White Blood Count 7.1 K/mm3 (4.4-11.0)
[2023-06-08 10:57] LABS: Microalbumin,Random Urine 9.6 mg/L (NO RANGE EST.); Microalbumin:Creatinine Ratio 6.2 mg/g CRE (<30 mg/g CRE)
[2023-06-08 11:09] LABS: ALB/GLOB Ratio 0.8 RATIO (0.9-2.4); AST(SGOT) 17 U/L (15-37); Alanine Aminotransfer ALT/SGPT 48 U/L (13-56); Albumin, Serum 3.4 g/dL (3.2-5.0); Alkaline Phosphatase 146 U/L (45-117); Anion Gap 5 (5-15); BUN 18 mg/dL (7-18); BUN/Creat Ratio 18.7 RATIO (10-20); Calcium,Total 8.5 mg/dL (8.5-10.1); Chloride 106 mmol/L (98-107); Cholesterol 190 mg/dL (200); Creatinine, Serum 0.96 mg/dL (0.55-1.02); EST Glomerular Filtration Rate 65 mL/min (>60); Est Glom Filt Rate - Afr Amer 78 mL/min (>60); Globulin 4.5 g/dL (2.2-4.2); Glucose 91 mg/dL (74-106); High Density Lipoprotein 38 mg/dL; Potassium 3.6 mmol/L (3.5-5.1); Protein, Total 7.9 g/dL (6.4-8.2); Sodium Level 140 mmol/L (136-145); T4 Free Direct 0.92 ng/dL (0.76-1.46); Triglycerides 151 mg/dL; Very Low Density Lipoprotein 30 mg/dL (5-40)
== END | disposition home or self-care (01) ==
LOC: LAB 09:12
PROVIDERS: PCP Nurse Practitioner Family; Referring Provider Nurse Practitioner Family; Visit Provider Nurse Practitioner Family
DX: I10 Essential (primary) hypertension (principal); E78.5 Hyperlipidemia, unspecified; E03.9 Hypothyroidism, unspecified; N28.9 Disorder of kidney and ureter, unspecified; E55.9 Vitamin D deficiency, unspecified
CPT/HCPCS: 36415; 80053; 80061; 82043; 82306; 82570; 84439; 84443; 85027

== ENCOUNTER → 2024-01-02 | Outpatient (CLI) | payer OTHER, SELFPAY ==
[2024-01-02 08:21] LABS: Hematocrit 42.2 % (37-47); Hemoglobin 13.3 g/dL (12.0-15.0); Mean Corp Hgb Conc 31.5 g/dL (32-36); Mean Corpuscular Volume 82.6 fL (81-99); Mean Platelet Vol. 9.7 fl (6.2-12.0); Platelet Count 281 K/mm3 (150-450); RBC Distribution Width CV 14.6 % (11.6-14.6); RBC Distribution Width SD 44.3 fl (35.1-43.9); Red Blood Count 5.11 M/mm3 (4.2-5.4); White Blood Count 5.5 K/mm3 (4.4-11.0)
[2024-01-02 08:51] LABS: ALB/GLOB Ratio 0.8 RATIO (0.9-2.4); AST(SGOT) 18 U/L (15-37); Alanine Aminotransfer ALT/SGPT 26 U/L (13-56); Albumin, Serum 3.4 g/dL (3.2-5.0); Alkaline Phosphatase 158 U/L (45-117); Anion Gap 3 (5-15); BUN 19 mg/dL (7-18); BUN/Creat Ratio 20.1 RATIO (10-20); Calcium,Total 8.7 mg/dL (8.5-10.1); Chloride 109 mmol/L (98-107); Cholesterol 173 mg/dL (200); Creatinine, Serum 0.94 mg/dL (0.55-1.02); EST Glomerular Filtration Rate 66 mL/min (>60); Est Glom Filt Rate - Afr Amer 80 mL/min (>60); Globulin 4.4 g/dL (2.2-4.2); Glucose 100 mg/dL (74-106); High Density Lipoprotein 36 mg/dL; Protein, Total 7.8 g/dL (6.4-8.2); Sodium Level 139 mmol/L (136-145); T4 Free Direct 0.84 ng/dL (0.76-1.46); Thyroid Stim Hormone (TSH) 1.75 uIU/mL (0.358-3.74); Triglycerides 111 mg/dL; Very Low Density Lipoprotein 22 mg/dL (5-40)
[2024-01-02 09:01] LABS: Microalbumin,Random Urine 9.7 mg/L (NO RANGE EST.)
[2024-01-04 08:52] LABS: Vitamin D,25 Hydroxy 26.1 ng/mL
== END | disposition home or self-care (01) ==
LOC: LAB.FUTURE 07:14 → LAB 07:17
PROVIDERS: PCP Nurse Practitioner Family; Referring Provider Nurse Practitioner Family; Visit Provider Nurse Practitioner Family
DX: I10 Essential (primary) hypertension (principal); E55.9 Vitamin D deficiency, unspecified; N28.9 Disorder of kidney and ureter, unspecified; E78.5 Hyperlipidemia, unspecified; E03.9 Hypothyroidism, unspecified
CPT/HCPCS: 36415; 80053; 80061; 82043; 82306; 82570; 84439; 84443; 85027

== ENCOUNTER 2024-06-09 11:58 | Inpatient (IN) | payer BC, SELFPAY ==
[2024-06-09 11:59] VITALS: BP 149/86; PULSE 106; RESP 18; TEMP 36.7; O2SAT 99; BMI 39.7
[2024-06-09] MEDS: Ondansetron 4 MG/2 ML Vial IV (13:01)
[2024-06-09] MEDS: Morphine 4 MG/ML Syringe IV ×2 (13:01→16:03)
[2024-06-09] MEDS: Famotidine 200 MG/20 ML MDV 20 MG in 0.9% Normal Saline (Pres. free 8 ML 300 MG IV (13:07)
[2024-06-09 13:16] LABS: Absolute Lymphocyte Count 1.23 X10^3/uL (0.83-4.51); Absolute Neutrophil Count 4.2 X10^3/uL (2.0-7.7); Basophil# 0.03 X10^3/uL; Basophil% 0.5 % (0-1); Hematocrit 43.2 % (37-47); Lymphocyte # 1.23 X10^3/ul (0.83-4.51); Lymphocyte % 21.4 % (19-41); Mean Corp Hgb Conc 32.4 g/dL (32-36); Mean Corpuscular Volume 83.2 fL (81-99); Mean Platelet Vol. 9.8 fl (6.2-12.0); Monocyte# 0.29 X10^3/uL; Monocyte% 5.1 % (0-10); NRBC Flagged by Analyzer 0 % (0-5); Neutrophil # 4.17 X10^3/uL (2.7-7.7); Neutrophil % 72.7 % (47-70); Platelet Count 216 K/mm3 (150-450); RBC Distribution Width CV 13.8 % (11.6-14.6); RBC Distribution Width SD 41.7 fl (35.1-43.9); Red Blood Count 5.19 M/mm3 (4.2-5.4); White Blood Count 5.7 K/mm3 (4.4-11.0)
[2024-06-09 13:58] VITALS: BP 145/97; PULSE 85; RESP 19; O2SAT 98
[2024-06-09 14:24] LABS: ALB/GLOB Ratio 0.8 RATIO (0.9-2.4); AST(SGOT) 77 U/L (15-37); Alanine Aminotransfer ALT/SGPT 73 U/L (13-56); Albumin, Serum 3.6 g/dL (3.2-5.0); Alkaline Phosphatase 156 U/L (45-117); Anion Gap 5 (5-15); BUN 17 mg/dL (7-18); Calcium,Total 8.7 mg/dL (8.5-10.1); Chloride 109 mmol/L (98-107); Creatinine, Serum 0.89 mg/dL (0.55-1.02); EST Glomerular Filtration Rate 70 mL/min (>60); Est Glom Filt Rate - Afr Amer 85 mL/min (>60); Estimated Creatinine Clearance 98.98 ml/min; Globulin 4.3 g/dL (2.2-4.2); Glucose 98 mg/dL (74-106); Lipase 8593 U/L (13-75); Potassium 3.8 mmol/L (3.5-5.1); Protein, Total 7.9 g/dL (6.4-8.2); Sodium Level 140 mmol/L (136-145); Troponin-I HS 3 pg/mL (3.0-54.0)
[2024-06-09] MEDS: 0.9% Normal Saline (1000mL) 1,000 ML 999 ML IV (14:40)
[2024-06-09 14:51] LABS: Bacteria 0 SEEN /hpf (None Seen); Mucous, Urine 0 SEEN /hpf (<or=2+); Red Blood Cells-Urine 0 SEEN /hpf (0-5); White Blood Cells 0 SEEN /hpf (0-5)
[2024-06-09 14:57] LABS: Color, Urine Yellow (Yellow); Glucose, Dipstick Normal (Normal); Ketone-Dipstick Negative (Negative); Leukocyte Esterase-Dipstick 25 /ul (Negative); Nitrite-Dipstick Negative (Negative); Occult Blood-Urine Negative /ul (Negative); Protein-Dipstick 15 mg/dl (Negative); Urine Bilirubin Dipstick Negative (Negative); Urine Clarity Clear (Clear); Urine Urobilinogen 1 mg/dl (Normal)
[2024-06-09 15:00] VITALS: BP 132/82; PULSE 80; RESP 14; O2SAT 96
[2024-06-09 15:03] LABS: Squamous Epithelial Cells - UA 0-5 SEEN /hpf (5-10)
[2024-06-09 16:41] VITALS: BP 130/82; PULSE 78; RESP 12; TEMP 36.9; O2SAT 100
[2024-06-09 17:33] VITALS: BMI 40.4
[2024-06-09 17:46] VITALS: BP 136/91; PULSE 68; RESP 16; TEMP 36.7; O2SAT 99
[2024-06-09] MEDS: Lactated Ringers 1,000 ML 125 ML IV (19:09)
[2024-06-09] MEDS: oxyCODONE 5 MG Tablet PO (20:11)
[2024-06-09] MEDS: HYDROmorphone 1 MG/ML Syringe 0.5 MG IV (23:47)
[2024-06-10] MEDS: Lactated Ringers 1,000 ML 125 ML IV (03:02)
[2024-06-10] MEDS: Levothyroxine 25 MCG TABLET PO (05:50)
[2024-06-10 07:54] LABS: Absolute Lymphocyte Count 0.95 X10^3/uL (0.83-4.51); Absolute Neutrophil Count 2.8 X10^3/uL (2.0-7.7); Basophil# 0.02 X10^3/uL; Basophil% 0.5 % (0-1); Hematocrit 39.2 % (37-47); Hemoglobin 12.4 g/dL (12.0-15.0); Lymphocyte # 0.95 X10^3/ul (0.83-4.51); Lymphocyte % 23.5 % (19-41); Mean Corp Hgb Conc 31.6 g/dL (32-36); Mean Corpuscular Hgb 26.8 pg (27.0-32.0); Mean Corpuscular Volume 84.8 fL (81-99); Mean Platelet Vol. 9.4 fl (6.2-12.0); Monocyte# 0.22 X10^3/uL; Monocyte% 5.4 % (0-10); NRBC Flagged by Analyzer 0 % (0-5); Neutrophil # 2.84 X10^3/uL (2.7-7.7); Neutrophil % 70.1 % (47-70); Platelet Count 187 K/mm3 (150-450); RBC Distribution Width SD 43.7 fl (35.1-43.9); Red Blood Count 4.62 M/mm3 (4.2-5.4); White Blood Count 4.1 K/mm3 (4.4-11.0)
[2024-06-10 08:06] LABS: Prothrombin Time (Protime)PT. 13.5 SECONDS (11.7-14.9)
[2024-06-10 08:34] VITALS: BP 132/85; PULSE 77; RESP 16; TEMP 36.7; O2SAT 96
[2024-06-10] MEDS: Acetaminophen 325 MG Tablet 650 MG PO (08:46)
[2024-06-10 08:57] LABS: ALB/GLOB Ratio 0.8 RATIO (0.9-2.4); AST(SGOT) 166 U/L (15-37); Alanine Aminotransfer ALT/SGPT 193 U/L (13-56); Albumin, Serum 3.2 g/dL (3.2-5.0); Alkaline Phosphatase 180 U/L (45-117); Anion Gap 4 (5-15); BUN 14 mg/dL (7-18); Bilirubin, Direct 0.34 mg/dL (0.00-0.30); Calcium,Total 8.4 mg/dL (8.5-10.1); Chloride 108 mmol/L (98-107); Creatinine, Serum 0.82 mg/dL (0.55-1.02); EST Glomerular Filtration Rate 77 mL/min (>60); Est Glom Filt Rate - Afr Amer 93 mL/min (>60); Estimated Creatinine Clearance 108.34 ml/min; Globulin 3.8 g/dL (2.2-4.2); Glucose 86 mg/dL (74-106); Magnesium 2.1 mg/dL (1.6-2.6); Phosphorus 2.9 mg/dL (2.5-4.9); Potassium 3.8 mmol/L (3.5-5.1); Sodium Level 141 mmol/L (136-145)
[2024-06-10] MEDS: Pantoprazole Sodium 40 MG Tablet PO (09:30)
[2024-06-10] MEDS: Venlafaxine XR 150 MG Capsule PO (09:30)
[2024-06-10] MEDS: Sertraline 50 MG Tablet PO (09:30)
[2024-06-10] MEDS: amLODIPine 5 MG Tablet PO (09:30)
[2024-06-10] MEDS: Lisinopril 5 MG Tablet PO (09:31)
[2024-06-10] MEDS: Enoxaparin 40 MG/0.4 ML Syringe SC (09:31)
[2024-06-10 10:17] LABS: Triglycerides 107 mg/dL
[2024-06-10 14:40] VITALS: BP 125/79; PULSE 81; RESP 16; TEMP 36.6; O2SAT 96
[2024-06-10 21:00] VITALS: BP 132/72; PULSE 83; RESP 16; TEMP 37.2; O2SAT 96
[2024-06-11 02:51] VITALS: BP 121/64; PULSE 73; RESP 16; TEMP 36.7; O2SAT 96
[2024-06-11] MEDS: Levothyroxine 25 MCG TABLET PO (06:05)
[2024-06-11 07:18] LABS: Absolute Lymphocyte Count 1.31 X10^3/uL (0.83-4.51); Absolute Neutrophil Count 2.7 X10^3/uL (2.0-7.7); Basophil# 0.03 X10^3/uL; Basophil% 0.7 % (0-1); Hematocrit 38.4 % (37-47); Hemoglobin 12.7 g/dL (12.0-15.0); Lymphocyte # 1.31 X10^3/ul (0.83-4.51); Lymphocyte % 30.6 % (19-41); Mean Corp Hgb Conc 33.1 g/dL (32-36); Mean Corpuscular Volume 81.7 fL (81-99); Mean Platelet Vol. 9.6 fl (6.2-12.0); Monocyte# 0.26 X10^3/uL; Monocyte% 6.1 % (0-10); NRBC Flagged by Analyzer 0 % (0-5); Neutrophil # 2.66 X10^3/uL (2.7-7.7); Neutrophil % 62.1 % (47-70); Platelet Count 213 K/mm3 (150-450); RBC Distribution Width CV 13.4 % (11.6-14.6); RBC Distribution Width SD 39.9 fl (35.1-43.9); White Blood Count 4.3 K/mm3 (4.4-11.0)
[2024-06-11 08:15] LABS: ALB/GLOB Ratio 0.8 RATIO (0.9-2.4); AST(SGOT) 271 U/L (15-37); Alanine Aminotransfer ALT/SGPT 430 U/L (13-56); Albumin, Serum 3.1 g/dL (3.2-5.0); Alkaline Phosphatase 331 U/L (45-117); Anion Gap 5 (5-15); BUN 10 mg/dL (7-18); BUN/Creat Ratio 13.3 RATIO (10-20); Calcium,Total 8.6 mg/dL (8.5-10.1); Chloride 110 mmol/L (98-107); Creatinine, Serum 0.75 mg/dL (0.55-1.02); EST Glomerular Filtration Rate 86 mL/min (>60); Est Glom Filt Rate - Afr Amer 104 mL/min (>60); Estimated Creatinine Clearance 118.46 ml/min; Globulin 4.1 g/dL (2.2-4.2); Glucose 90 mg/dL (74-106); Potassium 3.5 mmol/L (3.5-5.1); Protein, Total 7.2 g/dL (6.4-8.2); Sodium Level 140 mmol/L (136-145)
[2024-06-11 10:12] VITALS: BP 150/94; PULSE 78; RESP 16; TEMP 36.6; O2SAT 95
[2024-06-11] MEDS: Lisinopril 5 MG Tablet PO (10:15)
[2024-06-11] MEDS: Sertraline 50 MG Tablet PO (10:15)
[2024-06-11] MEDS: amLODIPine 5 MG Tablet PO (10:16)
[2024-06-11] MEDS: Pantoprazole Sodium 40 MG Tablet PO (10:16)
[2024-06-11] MEDS: Venlafaxine XR 150 MG Capsule PO (10:16)
[2024-06-11] MEDS: Enoxaparin 40 MG/0.4 ML Syringe SC (10:18)
[2024-06-11 13:27] VITALS: BP 142/82; PULSE 92; RESP 16; TEMP 36.8; O2SAT 96
== END 2024-06-11 14:14 | disposition home or self-care (01) | DRG 440 ==
LOC: ED 13:20 → MS3 17:02
PROVIDERS: Admitting Provider Internal Medicine; Emergency Provider Surgery; PCP Nurse Practitioner Family; Visit Provider Family Medicine
DX: K85.90 Acute pancreatitis without necrosis or infection, unspecified (principal); E03.9 Hypothyroidism, unspecified; I10 Essential (primary) hypertension; F32.A Depression, unspecified; E66.9 Obesity, unspecified; K21.9 Gastro-esophageal reflux disease without esophagitis; F41.9 Anxiety disorder, unspecified; Z79.899 Other long term (current) drug therapy; Z68.39 Body mass index [BMI] 39.0-39.9, adult
CPT/HCPCS: 36415; 76705; 80048; 80053; 80076; 81001; 83690; 83735; 84100; 84443; 84478; 84484; 85025; 85610; 93005; 99284; J7030; J7120; A4216; J2405; J3490

== ENCOUNTER → 2024-06-25 | Outpatient (CLI) | payer BC, SELFPAY ==
[2024-06-25 09:35] LABS: Hematocrit 42.5 % (37-47); Hemoglobin 13.8 g/dL (12.0-15.0); Mean Corp Hgb Conc 32.5 g/dL (32-36); Mean Platelet Vol. 9.4 fl (6.2-12.0); Platelet Count 312 K/mm3 (150-450); RBC Distribution Width CV 13.7 % (11.6-14.6); RBC Distribution Width SD 41.3 fl (35.1-43.9); Red Blood Count 5.12 M/mm3 (4.2-5.4); White Blood Count 7.5 K/mm3 (4.4-11.0)
[2024-06-25 10:54] LABS: ALB/GLOB Ratio 0.8 RATIO (0.9-2.4); AST(SGOT) 19 U/L (15-37); Alanine Aminotransfer ALT/SGPT 49 U/L (13-56); Albumin, Serum 3.7 g/dL (3.2-5.0); Alkaline Phosphatase 214 U/L (45-117); Anion Gap 5 (5-15); BUN 19 mg/dL (7-18); BUN/Creat Ratio 17.8 RATIO (10-20); Calcium,Total 9.3 mg/dL (8.5-10.1); Chloride 110 mmol/L (98-107); Cholesterol 193 mg/dL (200); Creatinine, Serum 1.07 mg/dL (0.55-1.02); EST Glomerular Filtration Rate 57 mL/min (>60); Est Glom Filt Rate - Afr Amer 69 mL/min (>60); Globulin 4.4 g/dL (2.2-4.2); Glucose 99 mg/dL (74-106); High Density Lipoprotein 41 mg/dL; Potassium 3.6 mmol/L (3.5-5.1); Protein, Total 8.1 g/dL (6.4-8.2); Sodium Level 142 mmol/L (136-145); T4 Free Direct 1.09 ng/dL (0.76-1.46); Thyroid Stim Hormone (TSH) 0.747 uIU/mL (0.358-3.740); Triglycerides 82 mg/dL; Very Low Density Lipoprotein 16 mg/dL (5-40)
== END | disposition home or self-care (01) ==
LOC: LAB 08:56
PROVIDERS: PCP Nurse Practitioner Family; Referring Provider Nurse Practitioner Family; Visit Provider Nurse Practitioner Family
DX: I10 Essential (primary) hypertension (principal); E78.5 Hyperlipidemia, unspecified; N28.9 Disorder of kidney and ureter, unspecified; E03.9 Hypothyroidism, unspecified; E55.9 Vitamin D deficiency, unspecified
CPT/HCPCS: 36415; 80053; 80061; 82306; 84439; 84443; 85027

== ENCOUNTER → 2024-06-27 | Outpatient (CLI) | payer BC, SELFPAY ==
[2024-06-27 10:35] LABS: Microalbumin,Random Urine 15.3 mg/L (NO RANGE EST.); Microalbumin:Creatinine Ratio 6.1 mg/g CRE (<30 mg/g CRE)
== END | disposition home or self-care (01) ==
LOC: LAB 09:53
PROVIDERS: PCP Nurse Practitioner Family; Referring Provider Nurse Practitioner Family; Visit Provider Nurse Practitioner Family
DX: I10 Essential (primary) hypertension (principal)
CPT/HCPCS: 82043; 82570

== ENCOUNTER → 2024-09-22 | Outpatient (CLI) | payer BC, SELFPAY ==
--- NOTE | 2024-09-22 17:31 | US_ITS ---
PROCEDURE: KIDNEY AND BLADDER REASON FOR EXAM: UTI TECHNIQUE: Bilateral renal ultrasound. COMPARISON: None. FINDINGS: The kidneys appear within limits for size and echogenicity without hydronephrosis, stones or perinephric edema identified. The right kidney measures 11 x 4.7 x 4.6 cm with a cortical thickness of 1.1 cm. The left kidney measures 11.8 x 3.8 x 4.5 cm with a cortical thickness of 1.2 cm. Bladder volume 101 cc. Wall measures 3 mm. A right or left ureteral jet is not seen during imaging. No free fluid seen. US/Kidney and Bladder IMPRESSION: Kidneys appear within limits. Bladder volume 101 cc. Wall within limits at 3 mm. A right or left ureteral jet is not seen during imaging. Reading Location: [id number]
== END | disposition home or self-care (01) ==
LOC: US 17:32
PROVIDERS: PCP Nurse Practitioner Family; Referring Provider Urology; Visit Provider Urology
DX: N39.0 Urinary tract infection, site not specified (principal)
CPT/HCPCS: 76770

== ENCOUNTER → 2024-12-24 | Outpatient (CLI) | payer BC, SELFPAY ==
--- OUTSIDE RECORDS SUMMARY | 2024-12-24 08:06 | XMS RPT_ITS | CCD ---
Author Organization [facility] Care Team Providers Care Medical Device Sales Representative Name Role Phone CHARLEE LAGOS APRN, CNP Primary Care Phys ician CHARLEE HUMPHRIES Consulting Unavailable CHARLEE HUMPHRIES Referring Unavailable ELMA LUIS MD Admitting Unavailable ELMA LUIS MD Attending Unavailable ELMA LUIS MD Primary Care Unavailable PROVIDER, UNKNOWN Consulting Unavailable Charlee Humphries CNP Primary Care Provider CHARLEE LAGOS APRN, CNP Attending U navailable CHARLEE LAGOS APRN, CNP Primary Care U bartolo ADAMS MD, DR MCGRATH Attending Unavailabl e CHARLEE LAGOS APRN, CNP Primary Care U navailable Charlee Humphries CNP Primary Care Provider CHARLEE HUMPHRIES Primary Care Unavailable RADHA NAVARRO Referring Unavailable GHANSHYAM DEY Attending Unavaila ble RADHA NAVARRO Attending Unavailable CHARLEE HUMPHRIES Primary Care Unavailable CHARLEE HUMPHRIES Referring Unavailable CHARLEE HUMPHRIES Primary Care Unavailable CHARLEE HUMPHRIES Primary Care Unavailable CHARLEE HUMPHRIES Primary Care Unavailable CHARLEE HUMPHRIES Primary Care Unavailable CHARLEE HUMPHRIES Primary Care Unavailable CHARLEE LAGOS APRN, CNP Attending U navailable CHARLEE LAGOS APRN, CNP Primary Care U navailable Yandel ENGINEERING AIDE-CCharlee Primary Care Provi octavio Dr. Marquise Brown DO Emergency Provider Keyon [place], Dr. Engle Admit Provider Unavailab demetris Ta MD, Dr. Engle Other Provider Unavailab demetris Puente MD, Dr. Ghanshyam De La Cruz Attending Provider Kwame [place], Dr. Ghanshyam De La Cruz Other Provider [phone] Yandel ENGINEERING AIDE-C, Charlee Pappas Attending Provider Yandel ENGINEERING AIDE-C, Charlee Pappas Referring Provider Khai [place], Dr. Rodríguez Attending Provider [phone] Khai [place], Dr. Rodríguez Referring Provider Ghanshyam Puente Attending Unavailable Yandel, Charlee Pappas Primary Care Unavail able Todd Taintya Consulting Unavailable Ta, Achintya Admitting Unavailable Ghanshyam Puente Consulting Unavailable Kadie Ta Attending Unavailable Yandel, Charlee Pappas Attending Unavail able Yandel, Charlee Pappas Referring Unavail able Yandel, Charlee Pappas Primary Care Unavail able Yandel, Charlee Pappas Primary Care Unavail able Yandel, Charlee Pappas Attending Unavail able Anne Ridley Attending Unavailable Anne Ridley Referring Unavailable [place], Charlee Pappas Primary Care Unavail able Yandel, Charlee Pappas Referring Unavail able [place], Charlee Pappas Primary Care Unavail able Yandel, Charlee Pappas Attending Unavail able Ghanshyam Puente Attending Unavailable [place], Charlee Pappas Primary Care Unavail able Ta, Achintya Admitting Unavailable Ta, Achintya Consulting Unavailable [place], Charlee Pappas Attending Unavail able Yandel, Charlee Pappas Referring Unavail able [place], Charlee Pappas Primary Care Unavail able Medications Current Medications Medication Drug Class(es) Dates Sig (Normalized) Sig (Original) acetaminophen 325 mg oral capsule (9 sources) Start: 05-18-2019 take 1 capsule by mouth every six hours acetaminophen 325 mg oral capsule Dose : 650 mg =, Oral, q6h, # 20 cap(s), 0 Refill(s), Pharmacy: [facility]/pharmacy #[id number] Start Date: 05/18/19 Status: Ordered take 2 capsules by m outh every six hours as needed acetaminophen 325 mg cap Take 2 capsules by mouth every 6 hours as needed for pain. Active amLODIPine 5 mg oral tablet (13 sources) Dihydropyridine Calcium Channel Ronan Start: 06-09-2024 take 1 tablet by mouth once daily Amlodipine 5 mg tablet Active 5 mg PO DAILY June 09, 2024 1:00am Start: 06-11-2023 End: 12-08-2023 amLODIPine 5 mg oral tablet Dose : 5 mg = 1 tab(s), Oral, qDay, # 90 tab(s), 1 Refill(s), Pharmacy: [place] [id number], 168.5, cm, 06/11/23 10:39:00 EST, Height, kg, 06/11/23 10:39:00 EST, Dosing Weight Start Date: 06/11/23 Stop Date: 12/08/23 Status: Ordered Start: 05-26-2022 End: 11-22-2022 amLODIPine 5 mg oral tablet Dose : 5 mg = 1 tab(s), Oral, qDay, X 90 day(s), # 90 tab(s), 1 Refill(s), 11/22/22 11:20:00 EDT, Pharmacy: [facility], HTN, goal below 140/90, 172, cm, 05/26/22 10:52:00 EST, Height, kg, 05/26/22 10:52:00 EST, Dosing Weight Start Date: 05/26/22 Stop Date: 11/22/22 Status: Ordered Start: 05-23-2021 End: 02-17-2022 amLODIPine 5 mg oral tablet Dose : 5 mg = 1 tab(s), Oral, qDay, X 90 day(s), # 90 tab(s), 2 Refill(s), 02/17/22 11:37:00 EDT, Pharmacy: [facility], HTN, goal below 140/90, 171, cm, 05/23/21 10:37:00 EST, Height, kg, 05/23/21 10:37:00 EST, Dosing Weight Start Date: 05/23/21 Stop Date: 02/17/22 Status: Ordered Comment on above: Take 5 mg by mouth o nce daily. busPIRone hydrochloride 5 mg oral tablet (19 sources) Start: 06-11-2023 busPIRone 10 mg oral tablet Dose : 10 mg = 1 tab(s), Oral, TID, PRN Anxiety, As needed, # 270 tab(s), 1 Refill(s), Pharmacy: [facility], CHAYO (generalized anxiety disorder), 168.5, cm, 06/11/23 10:39:00 EST, Height, kg, 06/11/23 10:39:00 EST, Dosing Weight Start Date: 06/11/23 Status: Ordered Start: 05-26-2022 End: 07-25-2022 busPIRone 10 mg oral tablet Dose : 10 mg = 1 tab(s), Oral, TID, PRN Anxiety, As needed, # 270 tab(s), 1 Refill(s), Pharmacy: [facility], CHAYO (generalized anxiety disorder), 172, cm, 05/26/22 10:52:00 EST, Height, kg, 05/26/22 10:52:00 EST, Dosing Weight Start Date: 05/26/22 Stop Date: 07/25/22 Status: Ordered Start: 05-23-2021 End: 08-21-2021 busPIRone 10 mg oral tablet Dose : 10 mg = 1 tab(s), Oral, TID, PRN Anxiety, As needed, # 90 tab(s), 2 Refill(s), Pharmacy: [facility], CHAYO (generalized anxiety disorder), 171, cm, 05/23/21 10:37:00 EST, Height, kg, 05/23/21 10:37:00 EST, Dosing Weight Start Date: 05/23/21 Stop Date: 08/21/21 Status: Ordered Start: 04-19-2020 End: 06-09-2024 take 2 tablets by mouth at bedtime as needed Buspirone 5 MG tablet Active 10 mg PO AT BEDTIME NEEDED June 09, 2024 1:00am Start: 04-19-2020 take 10 mg by mouth three times daily Buspirone Active 10 MG PO THREE TIMES A DAY April 18, 2020 11:00pm Comment on above: Take 10 mg by mouth as needed (anxiety). cephalexin 500 mg oral capsule (4 sources) Cephalosporin Antibacterial Start: End: take 1 capsule by mouth four times daily cephALEXin (KEFLEX) 500 mg capsule Indications: Acute UTI Take 1 capsule by mouth four times daily for 7 days. 28 capsule 08/17/2024 08/24/2024 Active Start: 05-23-2024 End: 05-28-2024 take 1 capsule by mouth twice daily cephALEXin (KEFLEX) 500 mg capsule Take 1 capsule by mouth two times a day for 5 days. 10 capsule 05/23/2024 05/28/2024 Active Start: 01-23-2021 End: 09-24-2023 take 1 capsule by mouth twice daily cephALEXin (KEFLEX) 500 mg capsule Take 1 capsule by mouth twice daily. 14 capsule 0 01/23/2021 09/24/2023 Discontinued (Course of therapy completed) Comment on above: Take 1 capsule by mo uth twice daily. cholecalciferol 1.25 mg oral capsule (7 sources) Vitamin D Start: 06-11-2023 End: 12-08-2023 cholecalciferol 1250 mcg (50,000 intl units) oral capsule Dose : 50,000 International_Unit = 1 cap(s), Oral, qmonth, # 4 cap(s), 1 Refill(s), Pharmacy: [facility], Vitamin D deficiency, 168.5, cm, 06/11/23 10:39:00 EST, Height, kg, 06/11/23 10:39:00 EST, Dosing Weight Start Date: 06/11/23 Stop Date: 12/08/23 Status: Ordered take 1 capsule by mouth every mo nth cholecalciferol, Vitamin D3, (VITAMIN D3) 1,250 mcg (50,000 unit) cap capsule Take 50,000 Units by mouth once every month. Active 2 ml dupilumab 150 mg/ml prefilled syringe (2 sources) Interleukin-4 Receptor alpha Antagonist Start: 04-29-2022 End: 03-29-2024 inject 1 dose by subcutaneous injection every other week Dupixent Pre-filled Syringe 300 mg/2 mL subcutaneous solution Dose : 300 mg =, Subcutaneous, every other week, rotate injection sites, # 4 mL, 0 Refill(s) Start Date: 04/29/22 Status: Ordered Dupixent Pre-filled Syringe 300 mg/2 mL subcutaneous solution (1 source) Start: 04-29-2022 inject 1 dose by subcutaneous injection every other week Dupixent Pre-filled Syringe 300 mg/2 mL subcutaneous solution Dose : 300 mg =, Subcutaneous, every other week, rotate injection sites, # 4 mL, 0 Refill(s) Start Date: 04/29/22 Status: Ordered 12 hr guaiFENesin 600 mg extended release oral tablet (6 sources) Start: 06-09-2024 take 1 tablet by mouth twice daily Guaifenesin 600 mg tablet extended release 12hr Active 600 mg PO TWICE A DAY June 09, 2024 1:00am Start: 08-15-2019 End: 03-29-2024 take 2 tablets by mouth twice daily guaiFENesin (MUCINEX) 600 mg 12 hr tablet Indications: Influenza B Take 2 tablets by mouth twice daily. 60 tablet 08/15/2019 03/29/2024 Discontinued (Discontinued by Patient) Comment on above: Take 2 tablets by [facility] twice daily. hydroCHLOROthiazide 12.5 mg oral tablet (13 sources) Thiazide Diuretic Start: Hydrochlorothiazide Active 0 MG PO DAILY April 19, 2020 8:41am Start: 04-19-2020 End: 06-09-2024 hydroCHLOROthiazide 12.5 mg oral tablet Dose : 12.5 mg = 1 tab(s), Oral, Daily, # 90 tab(s), 2 Refill(s), Pharmacy: [facility], HTN, goal below 140/90, 171, cm, 05/23/21 10:37:00 EST, Height, kg, 05/23/21 10:37:00 EST, Dosing Weight Start Date: 05/23/21 Stop Date: 02/17/22 Status: Ordered Start: 04-19-2020 End: 06-09-2024 take 1 capsule by mouth once daily Hydrochlorothiazide 12.5 MG capsule Discontinued 12.5 mg PO DAILY April 19, 2020 12:00am June 09, 2024 6:28pm Start: 04-19-2020 Hydrochlorothi azide Active 0 MG PO DAILY April 18, 2020 11:00pm Start: 04-19-2020 Hydrochlorothi azide Active 0 MG PO DAILY April 19, 2020 12:00am levothyroxine sodium 0.05 mg oral tablet (18 sources) l-Thyroxine Start: 06-11-2023 levothyroxine 50 mcg (0.05 mg) oral tablet Dose : 50 mcg = 1 tab(s), Oral, qDay, # 90 tab(s), 1 Refill(s), Pharmacy: [id number], Hypothyroidism in adult, 168.5, cm, 06/11/23 10:39:00 EST, Height, kg, 06/11/23 10:39:00 EST, Dosing Weight Start Date: 06/11/23 Status: Ordered Start: 05-26-2022 End: 11-22-2022 levothyroxine 50 mcg (0.05 m g) oral tablet Dose : 50 mcg = 1 tab(s), Oral, qDay, # 90 tab(s), 1 Refill(s), Pharmacy: [facility], Hypothyroidism in adult, 172, cm, 05/26/22 10:52:00 EST, Height, kg, 05/26/22 10:52:00 EST, Dosing Weight Start Date: 05/26/22 Stop Date: 11/22/22 Status: Ordered Start: 05-23-2021 End: 02-17-2022 levothyroxine 50 mcg (0.05 m g) oral tablet Dose : 50 mcg = 1 tab(s), Oral, qDay, # 90 tab(s), 2 Refill(s), Pharmacy: [facility], Hypothyroidism in adult, 171, cm, 05/23/21 10:37:00 EST, Height, kg, 05/23/21 10:37:00 EST, Dosing Weight Start Date: 05/23/21 Stop Date: 02/17/22 Status: Ordered Start: 04-19-2020 take 2 tablets by mo [facility] once daily Levothyroxine 25 MCG tablet Active 50 ug PO DAILY April 19, 2020 12:00am Start: 04-19-2020 take 25 ug by mouth once daily Levothyroxine Active 25 MCG PO DAILY April 18, 2020 11:00pm take 1 tablet by dara once daily before breakfast levothyroxine (LEVOXYL) 50 mcg tablet Take 50 mcg by mouth daily before breakfast. Active Comment on above: Take 50 mcg by mouth daily before breakfast. losartan potassium 100 mg oral tablet (13 sources) Angiotensin 2 Receptor Ronan Start: 06-09-2024 take 1 tablet by mouth once daily Losartan 100 mg tablet Active 100 mg PO DAILY June 09, 2024 1:00am Start: 06-11-2023 losartan 100 m g oral tablet Dose : 100 mg = 1 tab(s), Oral, qDay, # 90 tab(s), 1 Refill(s), Pharmacy: [place] [id number], HTN, goal below 140/90, 168.5, cm, 06/11/23 10:39:00 EST, Height, kg, 06/11/23 10:39:00 EST, Dosing Weight Start Date: 06/11/23 Status: Ordered Start: 05-26-2022 End: 11-22-2022 losartan 100 mg oral tablet Dose : 100 mg = 1 tab(s), Oral, qDay, # 90 tab(s), 1 Refill(s), Pharmacy: [place] [id number], HTN, goal below 140/90, 172, cm, 05/26/22 10:52:00 EST, Height, kg, 05/26/22 10:52:00 EST, Dosing Weight Start Date: 05/26/22 Stop Date: 11/22/22 Status: Ordered Start: 05-23-2021 End: 02-17-2022 losartan 100 mg oral tablet Dose : 100 mg = 1 tab(s), Oral, qDay, # 90 tab(s), 2 Refill(s), Pharmacy: [place] [id number], HTN, goal below 140/90, 171, cm, 05/23/21 10:37:00 EST, Height, kg, 05/23/21 10:37:00 EST, Dosing Weight Start Date: 05/23/21 Stop Date: 02/17/22 Status: Ordered Comment on above: Take 100 mg by mouth once daily. meclizine hydrochloride 25 mg chewable tablet (13 sources) Antiemetic Start: take 1 tablet by mouth once daily as needed for dizziness Meclizine (Antivert) 25 mg tablet,chewable Active 25 mg PO DAILY as needed for dizziness June 09, 2024 1:00am Start: 06-11-2023 End: 12-08-2023 meclizine 25 mg oral tablet Dose : 25 mg = 1 tab(s), Oral, TID, PRN as needed for dizziness, # 60 tab(s), 5 Refill(s), Pharmacy: [place] [id number], 168.5, cm, 06/11/23 10:39:00 EST, Height, kg, 06/11/23 10:39:00 EST, Dosing Weight Start Date: 06/11/23 Stop Date: 12/08/23 Status: Ordered Start: 03-06-2022 End: 09-02-2022 meclizine 25 mg oral tablet Dose : 25 mg = 1 tab(s), Oral, TID, PRN as needed for dizziness, # 60 tab(s), 5 Refill(s), Pharmacy: [facility], 172, cm, 03/06/22 11:12:00 EDT, Height, kg, 03/06/22 11:12:00 EDT, Dosing Weight Start Date: 03/06/22 Stop Date: 09/02/22 Status: Ordered Start: 05-23-2021 End: 12-19-2021 meclizine 25 mg oral tablet Dose : 25 mg = 1 tab(s), Oral, TID, PRN as needed for dizziness, # 60 tab(s), 6 Refill(s), Pharmacy: [facility], 171, cm, 05/23/21 10:37:00 EST, Height, kg, 05/23/21 10:37:00 EST, Dosing Weight Start Date: 05/23/21 Stop Date: 12/19/21 Status: Ordered Comment on above: Take 25 mg by mouth as needed (vertigo). nitrofurantoin, macrocrystals 25 mg / nitrofurantoin, monohydrate 75 mg oral capsule (5 sources) Nitrofuran Antibacterial Start: 05-02-20 End: 05-07-20 take 1 capsule by mouth twice daily nitrofurantoin monohydrate and macrocrystal (MACROBID) 100 mg capsule Take 1 capsule by mouth two times a day for 5 days. 10 capsule 05/02/2024 05/07/2024 Active Start: 11-22-2023 End: 11-27-2023 take 1 capsule by mouth twice daily nitrofurantoin monohydrate and macrocrystal (MACROBID) 100 mg capsule Indications: Urinary frequency Take 1 capsule by mouth two times a day for 5 days. 10 capsule 0 11/22/2023 11/27/2023 Active Start: 02-08-2023 End: 02-13-2023 take 1 capsule by mouth twice daily at mealtime nitrofurantoin monohydrate and macrocrystal (MACROBID) 100 mg capsule Indications: Urinary frequency Take 1 capsule by mouth twice daily with meals for 5 days. 10 capsule 0 02/08/2023 02/13/2023 Active Comment on above: Take 1 capsule by [facility] twice daily with meals for 5 days. omeprazole 40 mg delayed release oral capsule (13 sources) Proton Pump Inhibitor Start: 06-09-2024 take 1 capsule by mouth once daily Omeprazole 40 mg capsule,delayed release(DR/EC) Active 40 mg PO DAILY June 09, 2024 1:00am Start: 06-11-2023 omeprazole 40 mg oral delayed release capsule Dose : 40 mg = 1 cap(s), Oral, qDay, # 90 cap(s), 1 Refill(s), Pharmacy: [facility], GERD (gastroesophageal reflux disease), 168.5, cm, 06/11/23 10:39:00 EST, Height, kg, 06/11/23 10:39:00 EST, Dosing Weight Start Date: 06/11/23 Status: Ordered Start: 05-26-2022 End: 11-22-2022 omeprazole 40 mg oral delaye d release capsule Dose : 40 mg = 1 cap(s), Oral, qDay, # 90 cap(s), 1 Refill(s), Pharmacy: [facility], GERD (gastroesophageal reflux disease), 172, cm, 05/26/22 10:52:00 EST, Height, kg, 05/26/22 10:52:00 EST, Dosing Weight Start Date: 05/26/22 Stop Date: 11/22/22 Status: Ordered Start: 05-23-2021 End: 02-17-2022 omeprazole 40 mg oral delaye d release capsule Dose : 40 mg = 1 cap(s), Oral, qDay, # 90 cap(s), 2 Refill(s), Pharmacy: [facility], GERD (gastroesophageal reflux disease), 171, cm, 05/23/21 10:37:00 EST, Height, kg, 05/23/21 10:37:00 EST, Dosing Weight Start Date: 05/23/21 Stop Date: 02/17/22 Status: Ordered Comment on above: Take 40 mg by mouth once daily. phenazopyridine hydrochloride 100 mg oral tablet (1 source) Start: 08-17-19 End: 08-22-19 take 1 tablet by mouth three times daily as needed phenazopyridine (PYRIDIUM) 100 mg tablet Indications: Acute UTI Take 1 tablet by mouth three times a day as needed for up to 5 days. 15 tablet 08/17/2024 08/22/2024 Active sertraline 25 mg oral tablet (20 sources) Serotonin Reuptake Inhibitor Start: 06-09-20 take 2 tablets by mouth once daily Sertraline 25 MG tablet Active 50 mg PO DAILY June 09, 2024 1:00am Start: 06-11-2023 sertraline 50 mg oral tablet Dose : 50 mg = 1 tab(s), Oral, qDay, # 90 tab(s), 1 Refill(s), Pharmacy: [facility], 168.5, cm, 06/11/23 10:39:00 EST, Height, kg, 06/11/23 10:39:00 EST, Dosing Weight Start Date: 06/11/23 Status: Ordered Start: 05-26-2022 End: 11-22-2022 sertraline 50 mg oral tablet Dose : 50 mg = 1 tab(s), Oral, qDay, # 90 tab(s), 1 Refill(s), Pharmacy: [facility], 172, cm, 05/26/22 10:52:00 EST, Height, kg, 05/26/22 10:52:00 EST, Dosing Weight Start Date: 05/26/22 Stop Date: 11/22/22 Status: Ordered Start: 09-20-2021 End: 03-19-2022 sertraline 50 mg oral tablet Dose : 50 mg = 1 tab(s), Oral, qDay, # 90 tab(s), 1 Refill(s), Pharmacy: [facility], 172, cm, 08/30/21 10:20:00 EST, Height, kg, 08/30/21 10:20:00 EST, Dosing Weight Start Date: 09/20/21 Stop Date: 03/19/22 Status: Ordered Start: 04-19-2020 End: 06-09-2024 take 1 tablet by mouth once daily Sertraline 25 MG tablet Discontinued 25 mg PO DAILY April 19, 2020 12:00am June 09, 2024 6:30pm Comment on above: Take 50 mg by mouth once daily. sod sulf-pot chloride-mag sulf (SUTAB) 1.479-0.188- 0.225 gram tab (1 source) Start: 03-29-2024 End: 03-31-2024 sod sulf-pot chloride-mag sulf (SUTAB) 1.479-0.188- 0.225 gram tab Indications: Screen for colon cancer Take 12 tablets by mouth as directed for 2 days. Follow instructions that have been given to you by your provider's office. (Part 1, take 12 tablets. Part 2, take 12 tablets). 24 tablet 03/29/2024 03/31/2024 Active traZODone hydrochloride 50 mg oral tablet (3 sources) Serotonin Reuptake Inhibitor Start: 06-11-2023 traZODone 50 mg oral tablet Dose : 50 mg = 1 tab(s), Oral, qHS, # 90 tab(s), 1 Refill(s), Pharmacy: [facility], Insomnia, persistent, 168.5, cm, 06/11/23 10:39:00 EST, Height, kg, 06/11/23 10:39:00 EST, Dosing Weight Start Date: 06/11/23 Status: Ordered Start: 05-26-2022 End: 11-22-2022 traZODone 50 mg oral tablet Dose : 50 mg = 1 tab(s), Oral, qHS, # 90 tab(s), 1 Refill(s), Pharmacy: [facility], Insomnia, persistent, 172, cm, 05/26/22 10:52:00 EST, Height, kg, 05/26/22 10:52:00 EST, Dosing Weight Start Date: 05/26/22 Stop Date: 11/22/22 Status: Ordered Start: 05-23-2021 End: 07-22-2021 traZODone 50 mg oral tablet Dose : 50 mg = 1 tab(s), Oral, qHS, # 30 tab(s), 1 Refill(s), Pharmacy: [facility], Insomnia, persistent, 171, cm, 05/23/21 10:37:00 EST, Height, kg, 05/23/21 10:37:00 EST, Dosing Weight Start Date: 05/23/21 Stop Date: 07/22/21 Status: Ordered 24 hr venlafaxine 150 mg extended release oral capsule (20 sources) Serotonin and Norepinephrine Reuptake Inhibitor Start: 06-09-2024 take 1 capsule by mouth once daily Venlafaxine 150 mg capsule,extended release 24hr Active 150 mg PO DAILY June 09, 2024 1:00am Start: 06-11-2023 venlafaxine 15 0 mg oral capsule, extended release Dose : 150 mg = 1 cap(s), Oral, qDay, # 90 cap(s), 1 Refill(s), Pharmacy: [facility], CHAYO (generalized anxiety disorder), 168.5, cm, 06/11/23 10:39:00 EST, Height, kg, 06/11/23 10:39:00 EST, Dosing Weight Start Date: 06/11/23 Status: Ordered Start: 05-23-2021 End: 02-17-2022 venlafaxine 150 mg oral caps ule, extended release Dose : 150 mg = 1 cap(s), Oral, qDay, # 90 cap(s), 2 Refill(s), Pharmacy: [facility], CHAYO (generalized anxiety disorder), 171, cm, 05/23/21 10:37:00 EST, Height, kg, 05/23/21 10:37:00 EST, Dosing Weight Start Date: 05/23/21 Stop Date: 02/17/22 Status: Ordered Start: 04-19-2020 End: 06-09-2024 take 1 tablet by mouth once daily Venlafaxine 25 MG tablet Discontinued 25 mg PO DAILY April 19, 2020 12:00am June 09, 2024 6:30pm Start: 03-11-2019 End: 11-22-2022 venlafaxine 150 mg oral caps ule, extended release Dose : 150 mg = 1 cap(s), Oral, qDay, # 90 cap(s), 1 Refill(s), Pharmacy: [facility], CHAYO (generalized anxiety disorder), 172, cm, 05/26/22 10:52:00 EST, Height, kg, 05/26/22 10:52:00 EST, Dosing Weight Start Date: 05/26/22 Stop Date: 11/22/22 Status: Ordered Comment on above: Take 1 capsule by [facility] once daily. Completed/Discontinued Medications Medication Drug Class(es) Dates Sig (Normalized) Sig (Original) amoxicillin 875 mg / clavulanate 125 mg oral tablet (2 sources) Penicillin-class Antibacterial Start: 06-09-2024 End: 06-11-2024 Amoxicillin-Pot Clavulanate 875-125 mg tablet Discontinued 1 {tbl} PO Q12H June 09, 2024 1:00am June 11, 2024 3:26pm Start: 09-24-2023 End: 10-01-2023 take 1 tablet by mouth twice daily amoxicillin-clavulanate potassium (AUGMENTIN) 875-125 mg per tablet Indications: Rhinosinusitis Take 1 tablet by mouth two times a day for 7 days. 14 tablet 0 09/24/2023 10/01/2023 Active Comment on above: Take 1 tablet by [facility] two times a day for 7 days. benzonatate 100 mg oral capsule (5 sources) Non-narcotic Antitussive Start: 2019 End: 2023 take 1 capsule by mouth three times daily as needed benzonatate (TESSALON PERLES) 100 mg capsule Indications: Influenza B Take 1 capsule by mouth three times daily as needed. 40 capsule 08/15/2019 03/29/2024 Discontinued (Discontinued by Patient) Comment on above: Take 1 capsule by [facility] three times daily as needed. betamethasone 0.5 mg/ml topical cream (5 sources) Corticosteroid Start: 2018 End: 2023 betamethasone dipropionate (DIPROSONE) 0.05 % cream Apply to affected area as directed. 03/15/2019 03/29/2024 Discontinued (Discontinued by Patient) Comment on above: Apply to affected ar ea as directed. hydroCHLOROthiazide 12.5 mg / lisinopril 10 mg oral tablet (6 sources) Thiazide Diuretic, Angiotensin Converting Enzyme Inhibitor Start: 2013 End: 2017 Lisinopril-Hydrochl orothiazide 1 TABLET tablet Discontinued 1 {tbl} PO DAILY January 23, 2014 12:00am November 21, 2017 11:38am Start: 01-23-2014 End: 11-21-2017 take 1 tablet by mouth once daily Lisinopril-Hydrochlorothiazide Discontin ued 1 TABLET PO DAILY January 22, 2014 11:00pm November 21, 2017 10:38am lisinopril 5 mg oral tablet (11 sources) Angiotensin Converting Enzyme Inhibitor Start: 04-19-2020 End: 06-09-2024 take 1 tablet by mouth once daily Lisinopril 5 MG tablet Discontinued 5 mg PO DAILY April 19, 2020 12:00am June 09, 2024 6:30pm Start: 04-11-2009 End: 03-29-2024 lisinopril(PRINIVIL 10 MG TA B) Take one(1) tablet daily. 0 0 04/11/2009 03/29/2024 Discontinued (Discontinued by Patient) Comment on above: Take one(1) tablet d aily. Problems Active Problems Problem Classification Problem Date Documented Date Episodic/Chronic Anxiety disorders (3 sources) Generalized anxiety disorder 11-13-2020 Chronic Biliary tract disease (2 sources) Biliary sludge 03-06-2022 Chronic Chronic kidney disease (1 source) Chronic kidney disease; Translations: [Chronic kidney disease, stage 3 unspecified] Onset: 12-19-2024 Disorders of lipid metabolism (4 sources) Hyperlipidemia; Translations: [Hyperlipidemia, unspecified] Onset: 12-19-2024 11-13-2020 Chronic Esophageal disorders (4 sources) Gastroesophageal reflux disease; Translations: [Gastro-esophageal reflux disease without esophagitis] Onset: 12-19-2024 11-10-2019 Chronic Essential hypertension (12 sources) Hypertensive disorder; Translations: [Essential (primary) hypertension] Onset: 07-26-2024 01-24-2019 Chronic Genitourinary symptoms and ill-defined conditions (5 sources) Increased frequency of urination; Translations: [Frequency of micturition] 02-08-2023 Episodic Nonspecific chest pain (6 sources) Chest pain; Translations: [Chest pain, unspecified] 11-21-2014 Episodic Nutritional deficiencies (3 sources) Vitamin D deficiency; Translations: [Vitamin D deficiency, unspecified] Onset: 12-19-2024 05-26-2022 Chronic Other acquired deformities (2 sources) Spondylolysis 03-06-2022 Episodic Other connective tissue disease (2 sources) Tenosynovitis of left radial styloid 12-05-2021 Episodic Other diseases of kidney and ureters (3 sources) Renal impairment 05-15-2020 Episodic Other female genital disorders (3 sources) History of gynecological disorder 11-10-2019 Episodic Other nutritional; endocrine; and metabolic disorders (1 source) Body mass index 40+ - severely obese 12-04-2022 Chronic Other screening for suspected conditions (not mental disorders or infectious disease) (5 sources) Patient encounter status; Translations: [Encounter for screening for malignant neoplasm of colon] Onset: 06-24-2024 03-29-2024 Episodic Other skin disorders (3 sources) 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 Other upper respiratory infections (1 source) Chronic sinusitis, unspecified; Translations: [Unspecified sinusitis (chronic)] 09-24-2023 Chronic Residual codes; unclassified (3 sources) Persistent insomnia 05-23-2021 Chronic Residual codes; unclassified (2 sources) Increased body mass index 11-10-2019 Episodic Thyroid disorders (4 sources) Hypothyroidism; Translations: [Hypothyroidism, unspecified] Onset: 12-19-2024 05-10-2019 Chronic Unclassified (3 sources) Liver function test increased 05-23-2021 Unclassified (2 sources) Non-smoker 05-26-2022 Unclassified (2 sources) Patient encounter status 06-11-2023 Urinary tract infections (3 sources) Acute urinary tract infection; Translations: [Urinary tract infection, site not specified] Onset: 10-03-2024 05-02-2024 Episodic Past or Other Problems Problem Classification Problem Date Documented Da te Episodic/Chronic Pancreatic disorders (not diabetes) (5 sources) Acute pancreatitis without necrosis or infection, unspecified; Translations: [Pancreatitis] Onset: 02-25-2022 Episodic Residual codes; unclassified (12 sources) Family history of malignant neoplasm of breast in first degree relative; Translations: [Family history of malignant neoplasm of breast] Onset: 09-07-2015 07-08-2021 Episodic Residual codes; unclassified (1 source) Family history of malignant neoplasm of breast; Translations: [Family history of breast cancer in mother] Onset: 07-08-2021 Episodic Results Test Name Value Interpretation Reference Range Facility MA MAMMOGRAM SCREENING BILAT ERAL W/TOMOon 09-28-2024 MA MAMMOGRAM SCREENING BILATERAL W/AMINTA ORIGINAL FROM: JUAN SUTTON [address] [place] [address] PROCEDURE FOR: LING DIAS [address] [place] [address] Home: PID#: [id number] Exam#: [id number] : 1970 Age: 54 TO: CHARLEE YANDEL 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 2D standard and 3D tomosynthesis combination imaging performed through both breasts in the MLO and CC projection. Computer aided detection was utilized in the interpretation of this exam. COMPARISON: September 24, 2023, September 18, 2022, September 21, 2021 HISTORY: Breast cancer screening. FINDINGS: BREAST DENSITY: There are scattered areas of fibroglandular density. There is no suspicious mass, architectural distortion or microcalcification. Fibroglandular pattern is stable. IMPRESSION: No mammographic evidence of malignancy. Continued screening with annual mammograms is recommended. Consider supplemental annual breast MRI screening given elevated lifetime risk of breast cancer, best performed at six-month intervals between annual screening mammography. Bria Mir risk calculations, generated with the history provided, report this patient's 10 year risk and lifetime risk for developing breast cancer at 6.4% and 22.3%, respectively. Based on this assessment tool, if the patient's calculated lifetime risk is below 20%, then the patient is considered at average risk for developing breast cancer. If the patient's calculated lifetime risk is at or above 20%, then the patient is considered high risk for developing breast cancer and may be a candidate for supplemental breast MRI screening in addition to annual mammographic screening per the [employer]. BIRADS: MAMMOGRAM BI-RADS: 1: Negative RECALL: 1 year screening RECALL TYPE: mammo LETTER SENT: Normal BI-RADS 1 and 2 Interpreted by: Lakeisha Hanson Preliminary Report By: Lakeisha Hanson Electronically signed By Lakeisha Hanson Dictated Date: 09/28/2024 8:57:21 AM Prelim Date: 09/28/2024 8:59:36 AM Sign Date: 09/28/2024 8:59:36 AM Ordering Provider: CHARLEE HUMPHRIES Rubber Grinder: NARDA JARQUIN RT (R)(M) letter sent: Normal BI-RADS 1 and 2 Mammogram BI-RADS: 1 Negative Normal [facility] Kidney and Bladderon 025 Kidney and Bladder [facility] Imaging Services [address] [place], [place] [address] Kidney and Bladder MR#: [id number] Acct: [id number] Name: LING DIAS Rep #: [id number] : 1970 F 54 From: Quentin Perdue MD PCP: NOAH Lmi Status: REG CLI Study: Kidney and Bladder Date of Exam: 09/22/24 Exam# [id number] Ordering Dr: Anne Ridley MD PROCEDURE: KIDNEY AND BLADDER REASON FOR EXAM: UTI TECHNIQUE: Bilateral renal ultrasound. COMPARISON: None. FINDINGS: The kidneys appear within limits for size and echogenicity without hydronephrosis, stones or perinephric edema identified. The right kidney measures 11 x 4.7 x 4.6 cm with a cortical thickness of 1.1 cm. The left kidney measures 11.8 x 3.8 x 4.5 cm with a cortical thickness of 1.2 cm. Bladder volume 101 cc. Wall measures 3 mm. A right or left ureteral jet is not seen during imaging. No free fluid seen. US/Kidney and Bladder IMPRESSION: Kidneys appear within limits. Bladder volume 101 cc. Wall within limits at 3 mm. A right or left ureteral jet is not seen during imaging. Reading Location: [id number] CC: NOAH Humphries; Dr. Anne Ridley MD Product Safety Expert: Signed Normal [facility] Bacteria Ur Culton Bacteria identified Cx Nom (U) ORGANISM ID: 1 50,000-<100,000 CFU/ml Escherichia coli ORGANISM ID: 1 (ESCHERICHIA COLI) ------ ANTIBIOTIC INTERPRETATION JORGE A STATUS REFERENCE RANGE ------ Ampicillin S <=2 F Susceptible <=8 , Intermediate >8 , Resistant >16 Cefazolin S <=4 F Susceptible 0-16 , Intermediate <0 or >16 , Resistant >16 For uncomplicated urinary tract infections, cefazolin results can be used to predict susceptibility or resistance to cephalexin. Ceftriaxone S <=1 F Susceptible <=1 , Intermediate >1 , Resistant >=4 Cefepime S <=1 F Susceptible <=2 , Susceptible-Dose Dependent >2 , Resistant >=16 Ertapenem S <=0.5 F Susceptible <=0.5 , Intermediate >.5 , Resistant >1 Meropenem S <=0.25 F Susceptible <=1 , Intermediate >1 , Resistant >2 Ampicillin/Sulbact S <=2 F Susceptible <=8 , Intermediate >8 , Resistant >16 Piperacillin/Tazobac S <=4 F Susceptible <16 , Susceptible-Dose Dependent >=16 , Resistant >=32 Gentamicin S <=1 F Susceptible <=2 , Intermediate >2 , Resistant >=8 Tobramycin S <=1 F Susceptible <4 , Intermediate >=4 , Resistant >=8 Trimeth sulfameth S <=20 F Susceptible <=40 , Resistant >40 Ciprofloxacin S <=0.25 F Susceptible <0.5 , Intermediate >=.5 , Resistant >=1 Nitrofurantoin S <=16 F Susceptible <=32 , Intermediate >32 , Resistant >64 Abnormal [facility] Comment on above: Performed By: #### 6 30-4 ####[facility] LABCLIA [id number] SHANTHI [address] [address] [place] CNOVon 08-17-2024 CNOV Office Visit (UCWSTR ) LING DIAS ([id number]) 1970 F Date Time Provider Department 08/17/24 7:15 AM MILLICENT SOL [facility] During your visit today, we recorded the following information about you: Temperature Pulse Respiration Blood pressure 97.8 degrees 90/minute 18/minute 132/80 Weight 120.5 kg Millicent Sol PA-C 08/17/2024 7:39 AM Signed This note was created using [employer]. Subjective Ling Dias is a 54 year old female. Patient is a 54-year-old female who complains of dysuria, hematuria, urinary urgency and frequency that she has been experiencing for approximately the past 12 hours. Patient reports no fever, chills, flank pain, nausea or other symptoms. Patient has a history of urinary tract infection and states that her current symptoms are consistent with same. Patient reports that she believes she has had 6 episodes of urinary tract infection over the past 1-1/2 years. Review of Systems Genitourinary: Positive for dysuria, frequency, hematuria and urgency. All other systems reviewed and are negative. Objective BP 132/80 Pulse 90 Temp 36.6 ?C (97.8 ?F) (Tympanic) Resp 18 Wt 120.5 kg (265 lb 10.5 oz) LMP (LMP Unknown) SpO2 99% BMI 40.39 kg/m? Physical Exam Vitals and nursing note reviewed. Constitutional: Appearance: Normal appearance. She is normal weight. HENT: Head: Normocephalic and atraumatic. Right Ear: External ear normal. Left Ear: External ear normal. Nose: Nose normal. Mouth/Throat: Mouth: Mucous membranes are moist. Pharynx: Oropharynx is clear. Eyes: Extraocular Movements: Extraocular movements intact. Conjunctiva/sclera: Conjunctivae normal. Pupils: Pupils are equal, round, and reactive to light. Cardiovascular: Rate and Rhythm: Normal rate. Pulses: Normal pulses. Heart sounds: Normal heart sounds. Pulmonary: Effort: Pulmonary effort is normal. Breath sounds: Normal breath sounds. Abdominal: General: Abdomen is flat. Palpations: Abdomen is soft. Musculoskeletal: Cervical back: Normal range of motion and neck supple. Skin: General: Skin is warm and dry. Capillary Refill: Capillary refill takes less than 2 seconds. Neurological: General: No focal deficit present. Mental Status: She is alert and oriented to person, place, and time. Psychiatric: Mood and Affect: Mood normal. Behavior: Behavior normal. Thought Content: Thought content normal. Judgment: Judgment normal. Assessment and Plan Physical exam findings as noted above. Urinalysis shows large leukocyte esterase with nitrite, protein and large blood. Urine culture was ordered. Patient was provided with prescriptions for Keflex 500 mg and Pyridium 100 mg. Patient was advised that results of the urine culture will be available in 2 days and she will be contacted if there is a need to change her medication based on the sensitivity report. Patient verbalizes clear understanding of the above instructions. CLINICAL IMPRESSION: Acute UTI ASSESSMENT/PLAN: 1. Urinary frequency - ICD9: 788.41, ICD10: R35.0 (primary diagnosis) - UA DIP, URINE (POC) - BACTERIAL CULTURE, URINE 2. Acute UTI - ICD9: 599.0, ICD10: N39.0 - BACTERIAL CULTURE, URINE - CEPHALEXIN 500 MG CAPSULE - PHENAZOPYRIDINE 100 MG TABLET Millicent Sol PA-C Allergies As of Date: 08/17/2024 (No Known Allergies) Date Reviewed: 08/17/2024 Reviewed by: Cathleen Michelle LPN - Fully Assessed Reason for Visit: Urinary Frequency [1086] Cmt: Frequency and burning x 1 day Primary Visit Diagnosis:Urinary frequency [R35.0] Other Visit Diagnosis:Acute UTI [N39.0] Order(s):UA DIP, URINE (POC) [4277989] Order #: [id number]. #:[id number] BACTERIAL CULTURE, URINE [SQURCUL] Order #: [id number]. #:[id number] cephALEXin (KEFLEX) 500 mg capsuleTake 1 capsule by mouth four times daily for 7 days.Disp: 28 capsuleRfl: 0 phenazopyridine (PYRIDIUM) 100 mg tabletTake 1 tablet by mouth three times a day as needed for up to 5 days.Disp: 15 tabletRfl: 0 Prescriptions as of 08/17/2024 - cephALEXin (KEFLEX) 500 mg capsule Take 1 capsule by mouth four times daily for 7 days. - phenazopyridine (PYRIDIUM) 100 mg tablet Take 1 tablet by mouth three times a day as needed for up to 5 days. - cholecalciferol, Vitamin D3, (VITAMIN D3) 1,250 mcg (50,000 unit) cap capsule Take 50,000 Units by mouth once every month. - acetaminophen 325 mg cap Take 2 capsules by mouth every 6 hours as needed for pain. - amLODIPine (NORVASC) 5 mg tablet Take 5 mg by mouth once daily. - sertraline (ZOLOFT) 50 mg tablet Take 50 mg by mouth once daily. - losartan (COZAAR) 100 mg tablet Take 100 mg by mouth once daily. - omeprazole (PRILOSEC) 40 mg capsule Take 40 mg by mouth once daily. - levothyroxine (LEVOXYL) 50 mcg tablet Take 50 mcg by mouth daily before breakfast. - busPI (more content not included)... Normal [facility] UA DIP, URINE (POC)on 2024 BILIRUBIN UA (POCT) Small Abnormal Negative [facility] CLARITY UA (POCT) Clear [facility] COLOR UA (POCT) Red [facility] GLUCOSE UA (POCT) Negative Negative mg/dL [facility] Hemoglobin Ql (U) Large Abnormal Negative [facility] Interpretation and review of laboratory results Abnormal [facility] KETONE UA (POCT) Negative Negative mg/dL [facility] LEUKOCYTES UA (POCT) Large Abnormal Negative [facility] NITRITE UA (POCT) Positive Abnormal Negative [facility] PH UA (POCT) 6.0 4.5 - 8.0 [facility] Protein Ql (U) >=300 Abnormal Negative mg/dL [facility] SPECIFIC GRAVITY UA (POCT) 1.025 1 .005 - 1.030 [facility] UROBILINOGEN UA (POCT) 0.2 Kriss l E.U./dL [facility] Location:[facility] [place], [address], [place], [address] [facility] Microalb:Creat Ratio,Random URon 06-27-2024 Creatinine [Mass/Vol] 252.00 mg/dL Normal NO RAN GE EST. [facility] Comment on above: Performed By: #### L 500.4050, L100.0100 #### [facility] Laboratory [address] [place], [address] MALB:CRE 6.1 mg/g CRE Normal <30 mg/g CRE [facility] Comment on above: Performed By: #### L 500.4050, L100.0100 #### [facility] [address] [place], [address] MICROALBUMIN,UR 15.3 mg/L Normal NO RANGE EST. [facility] Comment on above: Performed By: #### L 500.4050, L100.0100 #### [facility] [address] [place], [address] Random urine microalbumin me asurementOrdered By: Charlee Humphries on 06-27-2024 Urine Random Microalbumin 15.3 mg/L NO RANGE EST. [facility] Urine albumin/creatinine rat io for detection of microalbuminuriaOrdered By: Charlee Humphries on 06-27-2024 Urine Microalbumin/Creatinine Ratio 6.1 mg/g CRE <30 [facility] Urine creatinine measurement (mass/volume)Ordered By: Charlee Humphries on 06-27-2024 Creatinine (U) [Mass/Vol] 252.00 mg/dL NO RANGE EST. [facility] Vitamin D,25 Hydroxyon 06-27 Vitamin D 25-OH 45.0 ng/mL Normal [facility] Comment on above: Result Comment: Mary min D 25(OH) Status Range Deficiency <20 ng/mL (50nmol/L) Insufficiency 20 - 30 ng/mL (50 - 75 nmol/L) Sufficiency 30 - 100 ng/mL (75 - 250 nmol/L) Toxicity >100 ng/mL (>250 nmol/L) Performed By: #### L 500.4050, L100.0100 #### [facility] [address] [place], [address] 50-AN-Ccxfnlb DOrdered By: Troy Humphries on 06-25-2024 Vitamin D 25-Hydroxy 45.0 ng/mL [facility] Comment on above: Vitamin D 25(OH) Sta tus Range Deficiency <20 ng/mL (50nmol/L) Insufficiency 20 - 30 ng/mL (50 - 75 nmol/L) Sufficiency 30 - 100 ng/mL (75 - 250 nmol/L) Toxicity >100 ng/mL (>250 nmol/L) Albumin to globulin ratioOrd ered By: Charlee Humphries on 06-25-2024 Albumin/Globulin [Mass ratio] 0.8 {ratio} Low 0.9-2.4 [facility] Bilirubin, totalOrdered By: Charlee Humphries on 06-25-2024 Bilirubin [Mass/Vol] 0.60 mg/dL 0.20-1.00 [facility] Comment on above: For patients on eltr ombopag therapy, use of Dimension [place] TBIL is not recommended. Blood urea nitrogen (BUN)/cr eatinine ratioOrdered By: Charlee Humphries on 06-25-2024 Urea nitrogen/Creatinine [Mass ratio] 17.8 mg/mg 10-20 [facility] CBC-Complete Blood Cnt No Di ffon 06-25-2024 Erythrocyte distribution width (RBC) [Ratio] 13.7 % Normal 11.6-14.6 [facility] Comment on above: Performed By: #### L 500.4050, L100.0100 #### [facility] [address] [place], [address] Hematocrit (Bld) [Volume fraction] 42.5 % Normal 37-47 [facility] Comment on above: Performed By: #### L 500.4050, L100.0100 #### [facility] [address] [place], [address] Hemoglobin (Bld) [Mass/Vol] 13.8 g/dL Normal 12.0-15.0 [facility] Comment on above: Performed By: #### L 500.4050, L100.0100 #### [facility] [address] [place], [address] MCH (RBC) [Entitic mass] 27.0 pg Normal 27.0-32.0 [facility] Comment on above: Performed By: #### L 500.4050, L100.0100 #### [facility] [address] [place], [address] MCHC (RBC) [Mass/Vol] 32.5 g/dL Normal 32-36 [facility] Comment on above: Performed By: #### L 500.4050, L100.0100 #### [facility] [address] [place], [address] MCV (RBC) [Entitic vol] 83.0 fL Normal 81-99 [facility] Comment on above: Performed By: #### L 500.4050, L100.0100 #### [facility] [address] [place], [address] Platelet mean volume (Bld) [Entitic vol] 9.4 fL Normal 6.2-12.0 [facility] Comment on above: Performed By: #### L 500.4050, L100.0100 #### [facility] [address] [place], [address] Platelets (Bld) [#/Vol] 312 10*3/uL Normal 150-450 [facility] Comment on above: Performed By: #### L 500.4050, L100.0100 #### [facility] [address] [place], [address] RBC (Bld) [#/Vol] 5.12 10*6/uL Normal 4.2-5.4 [facility] Comment on above: Performed By: #### L 500.4050, L100.0100 #### [facility] [address] [place], [address] RDW SD 41.3 fl Normal 35.1-43.9 [facility] Comment on above: Performed By: #### L 500.4050, L100.0100 #### [facility] [address] [place], [address] WBC (Bld) [#/Vol] 7.5 10*3/uL Normal 4.4-11.0 [facility] Comment on above: Performed By: #### L 500.4050, L100.0100 #### [facility] [address] [place], [address] Carbon dioxide measurementOr dered By: Charlee Humphries on 06-25-2024 CO2 [Moles/Vol] 27.0 mmol/L 21.0-32.0 [facility] Chloride measurementOrdered By: Charlee Humphries on 06-25-2024 Chloride [Moles/Vol] 110 mmol/L High 98-107 [facility] Comprehensive Metabolic Prof ilon 06-25-2024 Albumin [Mass/Vol] 3.7 g/dL Normal 3.2-5.0 [facility] Comment on above: Performed By: #### L 500.4050, L100.0100 #### [facility] [address] [place], [address] Albumin/Globulin [Mass ratio] 0.8 {ratio} Low 0.9-2.4 [facility] Comment on above: Performed By: #### L 500.4050, L100.0100 #### [facility] [address] [place], [address] ALK P 214 U/L High 45-117 [facility] Comment on above: Performed By: #### L 500.4050, L100.0100 #### [facility] [address] [place], [address] ALT [Catalytic activity/Vol] 49 U/L Normal 13-56 [facility] Comment on above: Performed By: #### L 500.4050, L100.0100 #### [facility] [address] [place], [address] AST [Catalytic activity/Vol] 19 U/L Normal 15-37 [facility] Comment on above: Performed By: #### L 500.4050, L100.0100 #### [facility] [address] [place], [address] Bilirubin [Mass/Vol] 0.60 mg/dL Normal 0.20-1.00 [facility] Comment on above: Result Comment: For patients on eltrombopag therapy, use of Dimension [place] TBIL is not recommended. Performed By: #### L 500.4050, L100.0100 #### [facility] [address] [place], [address] BUN/CRE 17.8 RATIO Normal 10-20 [facility] Comment on above: Performed By: #### L 500.4050, L100.0100 #### [facility] [address] [place], [address] CA,Total 9.3 mg/dL Normal 8.5-10.1 [facility] Comment on above: Performed By: #### L 500.4050, L100.0100 #### [facility] [address] [place], [address] Chloride [Moles/Vol] 110 mmol/L High 98-107 [facility] Comment on above: Performed By: #### L 500.4050, L100.0100 #### [facility] [address] [place], [address] CO2 [Moles/Vol] 27.0 mmol/L Normal 21.0-32.0 [facility] Comment on above: Performed By: #### L 500.4050, L100.0100 #### [facility] [address] [place], [address] Creatinine [Mass/Vol] 1.07 mg/dL High 0.55-1.02 [facility] Comment on above: Result Comment: The validity of the calculated GFR GFRAA in patients over 70 years has not been determined. Clinical correlation is essential. Performed By: #### L 500.4050, L100.0100 #### [facility] [address] [place], [address] EST GFR - AA 69 mL/min Normal >60 [facility] Comment on above: Result Comment: Afri can [place] GFR Calc Performed By: #### L 500.4050, L100.0100 #### [facility] [address] [place], [address] GAP 5 Normal 5-15 [facility] Comment on above: Performed By: #### L 500.4050, L100.0100 #### [facility] [address] [place], [address] GFR/1.73 sq M.predicted among non-blacks MDRD (S/P/Bld) [Vol rate/Area] 57 mL/min/{1.73_m2} Low >60 [facility] Comment on above: Result Comment: Non- GFR Calc Performed By: #### L 500.4050, L100.0100 #### [facility] [address] [place], [address] Globulin (S) [Mass/Vol] 4.4 g/dL High 2.2-4.2 [facility] Comment on above: Performed By: #### L 500.4050, L100.0100 #### [facility] [address] [place], [address] Glucose [Mass/Vol] 99 mg/dL Normal 74-106 [facility] Comment on above: Performed By: #### L 500.4050, L100.0100 #### [facility] [facility] [address] [place], [address] Potassium [Moles/Vol] 3.6 mmol/L Normal 3.5-5.1 [facility] Comment on above: Performed By: #### L 500.4050, L100.0100 #### [facility] [address] [place], [address] Sodium [Moles/Vol] 142 mmol/L Normal 136-145 [facility] Comment on above: Performed By: #### L 500.4050, L100.0100 #### [facility] [address] [place], [address] T PROT 8.1 g/dL Normal 6.4-8.2 [facility] Comment on above: Performed By: #### L 500.4050, L100.0100 #### [facility] [address] [place], [address] Urea nitrogen [Mass/Vol] 19 mg/dL High 7-18 [facility] Comment on above: Performed By: #### L 500.4050, L100.0100 #### [facility] [address] [place], [address] Direct serum free thyroxine (FT4) measurementOrdered By: Charlee Humphries on 06-25-2024 Free T4 [Mass/Vol] 1.09 ng/dL 0.76-1.46 [facility] Erythrocyte distribution wid th ratioOrdered By: Charlee Humphries on 06-25-2024 Erythrocyte distribution width (RBC) [Ratio] 13.7 % 11.6-14.6 [facility] Erythrocyte distribution wid th standard deviationOrdered By: Charlee Humphries on 06-25-2024 Erythrocyte distribution width (RBC) [Entitic vol] 41.3 fL 35.1-43.9 [facility] Estimated glomerular filtrat ion rate (GFR) AmericanOrdered By: Charlee Humphries on 06-25-2024 Estimated GFR (MDRD) Amer 69 mL/min >60 [facility] Comment on above: GFR Calc Glomerular filtration rate ( GFR) estimationOrdered By: Charlee Humphries on 06-25-2024 Estimated GFR (MDRD) Non-Af Amer 57 mL/min Low >60 [facility] Comment on above: Non- GFR Calc Glucose measurementOrdered B y: Charlee Humphries on 06-25-2024 Glucose [Mass/Vol] 99 mg/dL 74-106 [facility] Hematocrit Auto (Bld) [Volum e fraction]Ordered By: Charlee Humphries on 06-25-2024 Hematocrit (Bld) [Volume fraction] 42.5 % 37-47 [facility] Hemoglobin measurementOrdere d By: Charlee Humphries on 06-25-2024 Hemoglobin (Bld) [Mass/Vol] 13.8 g/dL 12.0-15.0 [facility] High density lipoprotein (HD L) measurementOrdered By: Charlee Humphries on 06-25-2024 Cholesterol in HDL [Mass/Vol] 41 mg/dL >40 [facility] Comment on above: The drugs N-Acetylcy steine and Metamizole may falsely depress this assay. Reference Range HDL <40 mg/dL Low HDL Cholesterol HDL >or= 60 mg/dL High HDL Cholesterol Laboratory - Chemistry and C hemistry - challengeOrdered By: Charlee Humphries on 06-25-2024 AST [Catalytic activity/Vol] 19 U/L 15-37 [facility] Lipid Profileon 06-25-2024 Cholesterol [Mass/Vol] 193 mg/dL Normal 200 [facility] Comment on above: Result Comment: <200 mg/dL Desirable 200-240 mg/dL Borderline >240 mg/dL High Risk Performed By: #### L 500.4050, L100.0100 #### [facility] [address] [place], [address] Cholesterol in HDL [Mass/Vol] 41 mg/dL Normal [facility] Comment on above: Result Comment: The drugs N-Acetylcysteine and Metamizole may falsely depress this assay. Reference Range HDL <40 mg/dL Low HDL Cholesterol HDL >or= 60 mg/dL High HDL Cholesterol Performed By: #### L 500.4050, L100.0100 #### [facility] [address] [place], [address] Cholesterol in LDL [Mass/Vol] 136 mg/dL High 0-130 [facility] Comment on above: Performed By: #### L 500.4050, L100.0100 #### [facility] [address] [place], [address] Cholesterol in VLDL [Mass/Vol] 16 mg/dL Normal 5-40 [facility] Comment on above: Performed By: #### L 500.4050, L100.0100 #### [facility] [address] [place], [address] Triglyceride [Mass/Vol] 82 mg/dL Normal [facility] Comment on above: Result Comment: The drugs N-Acetylcysteine and Metamizole may falsely depress this assay. Serum Triglycerides Reference Interval Normal <150 mg/dL Borderline high 150 - 199 mg/dL High 200 - 499 mg/dL Very High > or = 500 mg/dL Performed By: #### L 500.4050, L100.0100 #### [facility] [address] [place], [address] Low density lipoprotein (LDL ) cholesterol measurementOrdered By: Charlee Humphries on 06-25-2024 Cholesterol in LDL [Mass/Vol] 136 mg/dL High 0-130 [facility] MCV (mean corpuscular volume ) determinationOrdered By: Charlee Humphries on 06-25-2024 MCV (RBC) [Entitic vol] 83.0 fL 81-99 [facility] Mean corpuscular hemoglobin (MCH) determinationOrdered By: Charlee Humphries on 06-25-2024 MCH (RBC) [Entitic mass] 27.0 pg 27.0-32.0 [facility] Mean corpuscular hemoglobin concentration (MCHC) determinationOrdered By: Charlee Humphries on 06-25-2024 MCHC (RBC) [Mass/Vol] 32.5 g/dL 32-36 [facility] Mean platelet volume determi nationOrdered By: Charlee Humphries on 06-25-2024 Platelet mean volume (Bld) [Entitic vol] 9.4 fL 6.2-12.0 [facility] Platelet countOrdered By: Milton Humphries on 06-25-2024 Platelets (Bld) [#/Vol] 312 10*3/uL 150-450 [facility] Potassium measurementOrdered By: Charlee Humphries on 06-25-2024 Potassium [Moles/Vol] 3.6 mmol/L 3.5-5.1 [facility] Protein+Creatinine Ratio,Uri neon 06-25-2024 PROT:CRE RATIO Normal 0-200 [facility] Comment on above: Result Comment: UTO Performed By: #### L 500.4050, L100.0100 #### [facility] [address] [place], [address] PROTEIN,UR.RAN. Normal <11.9 [facility] Comment on above: Result Comment: UTO Performed By: #### L 500.4050, L100.0100 #### [facility] [address] [place], [address] UR CREAT Normal NO RANGE EST. [facility] Comment on above: Result Comment: UTO Performed By: #### L 500.4050, L100.0100 #### [facility] [address] [place], [address] RBC Auto (Bld) [#/Vol]Ordere d By: Charlee Humphries on 06-25-2024 RBC (Bld) [#/Vol] 5.12 10*6/uL 4.2-5.4 [facility] Serum anion gap measurementO rdered By: Charlee Humphries on 06-25-2024 Anion gap [Moles/Vol] 5 mmol/L 5-15 [facility] Serum globulin measurementOr dered By: Charlee Humphries on 06-25-2024 Globulin (S) [Mass/Vol] 4.4 g/dL High 2.2-4.2 [facility] Serum or plasma alanine umaña otransferase (ALT) measurementOrdered By: Charlee Humphries on 06-25-2024 ALT [Catalytic activity/Vol] 49 U/L 13-56 [facility] Serum or plasma albumin eliel urement (mass/volume)Ordered By: Charlee Humphries on 06-25-2024 Albumin [Mass/Vol] 3.7 g/dL 3.2-5.0 [facility] Serum or plasma alkaline josefina sphatase measurementOrdered By: Charlee Humphries on 06-25-2024 ALP [Catalytic activity/Vol] 214 U/L High 45-117 [facility] Serum or plasma calcium eliel urement (mass/volume)Ordered By: Charlee Humphries on 06-25-2024 Calcium [Mass/Vol] 9.3 mg/dL 8.5-10.1 [facility] Serum or plasma cholesterol measurement (mass/volume)Ordered By: Charlee Humphries on 06-25-2024 Cholesterol [Mass/Vol] 193 mg/dL <200 [facility] Comment on above: <200 mg/dL Desirable 200-240 mg/dL Borderline >240 mg/dL High Risk Serum or plasma creatinine m easurement (mass/volume)Ordered By: Charlee Humphries on 06-25-2024 Creatinine [Mass/Vol] 1.07 mg/dL High 0.55-1.02 [facility] Comment on above: The validity of the calculated GFR & GFRAA in patients over 70 years has not been determined. Clinical correlation is essential. Serum or plasma urea nitroge n measurement (mass/volume)Ordered By: Charlee Humphries on 06-25-2024 Urea nitrogen [Mass/Vol] 19 mg/dL High 7-18 [facility] Sodium levelOrdered By: Sohail Humphries on 06-25-2024 Sodium [Moles/Vol] 142 mmol/L 136-145 [facility] T4 Free Directon 06-25-2024 T4 FREE DIRECT 1.09 ng/dL Normal 0.76-1.46 [facility] Comment on above: Performed By: #### L 500.4050, L100.0100 #### [facility] [address] [place], [address] TSH QnOrdered By: Charlee lindsey on 06-25-2024 Thyroid Stimulating Hormone (TSH) 0.747 uIU/mL 0.358-3.740 [facility] Thyroid Stim Hormone (TSH)on 06-25-2024 TSH 0.747 uIU/mL Normal 0.358-3.740 [facility] Comment on above: Performed By: #### L 500.4050, L100.0100 #### [facility] [address] [place], [place], [address] Total proteinOrdered By: Caden Humphries on 06-25-2024 Protein [Mass/Vol] 8.1 g/dL 6.4-8.2 [facility] Triglycerides measurementOrd ered By: Charlee Humphries on 06-25-2024 Triglyceride [Mass/Vol] 82 mg/dL <199 [facility] Comment on above: The drugs N-Acetylcy steine and Metamizole may falsely depress this assay.Serum Triglycerides Reference Interval Normal <150 mg/dL Borderline high 150 - 199 mg/dL High 200 - 499 mg/dL Very High > or = 500 mg/dL Very low density lipoprotein (VLDL) cholesterol measurementOrdered By: Charlee Humphries on 06-25-2024 VLDL Cholesterol 16 mg/dL 5-40 [facility] White blood cell (WBC) count Ordered By: Charlee Humphries on 06-25-2024 WBC (Bld) [#/Vol] 7.5 10*3/uL 4.4-11.0 [facility] ANES POSTPROC EVALon 024 ANES POSTPROC EVAL HNO ID: [id number] Author: GHANSHYAM DEY MD Service: Anesthesiology Author Type: Anesthesiologist Type: Anesthesia Postprocedure Evaluation Filed: 06/24/2024 12:52 Note Text: POST ANESTHESIA EVALUATION NOTE : 1970 Procedure Summary Date: 06/24/24 Room / Location: [facility] Endoscopy Anesthesia Start: 1209 Anesthesia Stop: 1243 Procedure: COLONOSCOPY SCREENING Diagnosis: Screen for colon cancer (Screening for colorectal malignant neoplasm) Scheduled Providers: Fredo Garcia DO; Bayron Curry APRN.CRNA; Ghanshyam Dey MD Responsible Provider: Ghanshyam Dey MD Anesthesia Type: MAC ASA Status: 2 Anesthesia Type: MAC Last Vitals Vitals Value Taken Time BP 99/58 06/24/24 1251 Temp 36.5 06/24/24 1251 Pulse 80 06/24/24 1251 Resp 18 06/24/24 1251 SpO2 100 06/24/24 1251 Post Anesthesia Patient Status Patient Evaluation: bedside. Anticipated Disposition: phase 2 then home. Neurological Status: aware and responsive. Pulmonary Status: breathing comfortably on room air Airway Control: returned to baseline unsupported. Cardiovascular Status: stable. Pain Management: clinically adequate Postoperative Hydration: acceptable. Intraoperative Events: no significant anesthesia events Post Operative Nausea/Vomiting Status: no significant post operative nausea or vomiting Recommendation: continue current plan of care. Anesthesia Observations No Documentation SIGNATURE: Ghanshyam Dey MD PATIENT NAME: Ling Dias DATE: June 24, 2024 TIME: 12:51 PM CSN: [id number] Normal [facility] ANES PRE-OPon 06-24-2024 ANES PRE-OP HNO ID: [id number] Author: GHANSHYAM DEY MD Service: Anesthesiology Author Type: Anesthesiologist Type: Anesthesia Preprocedure Evaluation Filed: 06/24/2024 10:39 Note Text: ANESTHESIOLOGY DAY OF SURGERY NOTE : 1970 Procedure Information Date/Time: 06/24/24 1245 Scheduled providers: Fredo Garcia DO; Bayron Curry APRN.CRNA; Ghanshyam Dey MD Procedure: COLONOSCOPY SCREENING Location: [facility] Endoscopy Estimated body mass index is 37.71 kg/m? as calculated from the following: Height as of this encounter: 172.7 cm (5' 8). Weight as of this encounter: 112.5 kg (248 lb). Most recent hematocrit and potassium results: No results found for this basename: HCT,HEMATOCRIT,K,POTA SSIUM Relevant Problems No relevant active problems I - PHYSICAL EVALUATION AIRWAY Patient intubated: No. Tracheostomy tube not present Mallampati: II. TM distance: >3 FB. Neck ROM: full ROM without neurological symptoms. Mouth opening: adequate. Short neck: no. Thick neck: no DENTAL Normal dental observations. Dental findings: teeth intact. II - ANESTHESIA PLAN ASA Score: 2 Anesthetic Plan: MAC The patient is not a current smoker. NPO Status: adequate Beta Ronan Monitoring Plan Monitoring plan: standard ASA. Post Procedure Analgesic Plan Postoperative analgesic plan: parenteral or oral opioids and multimodal analgesia. Informed Consent Anesthetic risks, benefits, alternatives, personnel and consent discussed: yes. Patient / Responsible Libertarian agrees to proceed: yes Patient / Surrogate agrees to blood products: blood products not planned DNR status not reviewed with patient and/or family prior to surgery. Significant changes in the patient condition since the History and Physical, not otherwise documented in primary service progress note: no. Potential Anesthesia issues that may suggest increased risk of complications or contraindication to planned procedure: none. Discussed the possibility of lip / dental damage: yes Vitals Value Taken Time BP 186/102 06/24/24 1027 Pulse Resp 18 06/24/24 1027 Temp 36.3 ?C (97.3 ?F) 06/24/24 1027 SpO2 100 % 06/24/24 1027 Outpatient Medications as of 06/24/2024 Medication Sig cholecalciferol, Vitamin D3, (VITAMIN D3) 1,250 mcg (50,000 unit) cap capsule Take 50,000 Units by mouth once every month. amLODIPine (NORVASC) 5 mg tablet Take 5 mg by mouth once daily. sertraline (ZOLOFT) 50 mg tablet Take 50 mg by mouth once daily. losartan (COZAAR) 100 mg tablet Take 100 mg by mouth once daily. omeprazole (PRILOSEC) 40 mg capsule Take 40 mg by mouth once daily. levothyroxine (LEVOXYL) 50 mcg tablet Take 50 mcg by mouth daily before breakfast. venlafaxine ER (EFFEXOR XR) 150 mg 24 hr capsule Take 1 capsule by mouth once daily. acetaminophen 325 mg cap Take 2 capsules by mouth every 6 hours as needed for pain. busPIRone (BUSPAR) 10 mg tablet Take 10 mg by mouth three times a day as needed (anxiety). meclizine (ANTIVERT) 25 mg tab Take 25 mg by mouth three times a day as needed (vertigo). Facility-Administered Medications as of 06/24/2024 Medication Dose Route Frequency lidocaine (PF) 10 mg/mL (1 %) 1-2 mg injection (XYLOCAINE) 0.1-0.2 mL INTRADERMAL PRN lactated ringers iv infusion 30 mL/hr INTRAVENOUS CONTINUOUS I have interviewed and examined the patient. I have reviewed the medical record and/or the pre-anesthesia evaluation, pertinent labs, and test results. This contains updated information obtained within 48 hours of Surgery/Procedure. SIGNATURE: Ghanshyam Dey MD PATIENT NAME: Ling Dias DATE: June 24, 2024 TIME: 10:39 AM CSN: [id number] Normal [facility] Colonoscopyon 06-24-2024 Colonoscopy [facility] Gastrointestinal Endoscopy Patient Name: Ling Dias Procedure Date: 06/24/2024 11:58 AM Date of : 1970 Admit Type: Outpatient Age: 54 Room: [facility] Gender: Female Note Status: Finalized Attending MD: Fredo Garcia , , [id number] Procedure: Colonoscopy Indications: Screening for colorectal malignant neoplasm Providers: Fredo Garcia Patient Profile: This is a 54 year old female. Refer to note in patient chart for documentation of history and physical. Last Colonoscopy: date unknown. Referring Physician: Radha Navarro (Referring MD) Medicines: Monitored Anesthesia Care Complications: No immediate complications. Requesting Provider: Procedure: Pre-Anesthesia Assessment: - Prior to the procedure, a History and Physical was performed, and patient medications and allergies were reviewed. The patient is competent. The risks and benefits of the procedure and the sedation options and risks were discussed with the patient. All questions were answered and informed consent was obtained. Patient identification and proposed procedure were verified by the physician, the nurse, the anesthesiologist and the psychiatric aide in the pre-procedure area in the endoscopy suite. Mental Status Examination: alert and oriented. Airway Examination: normal oropharyngeal airway and neck mobility. Respiratory Examination: clear to auscultation. CV Examination: normal. Prophylactic Antibiotics: The patient does not require prophylactic antibiotics. Prior Anticoagulants: The patient has taken no anticoagulant or antiplatelet agents. ASA Grade Assessment: II - A patient with mild systemic disease. After reviewing the risks and benefits, the patient was deemed in satisfactory condition to undergo the procedure. The anesthesia plan was to use monitored anesthesia care (MAC). Immediately prior to administration of medications, the patient was re-assessed for adequacy to receive sedatives. The heart rate, respiratory rate, oxygen saturations, blood pressure, adequacy of pulmonary ventilation, and response to care were monitored throughout the procedure. The physical status of the patient was re-assessed after the procedure. After I obtained informed consent, the scope was passed under direct vision. Throughout the procedure, the patient's blood pressure, pulse, and oxygen saturations were monitored continuously. The Colonoscope was introduced through the anus and advanced to the cecum, identified by the appendiceal orifice, ileocecal valve and palpation. The colonoscopy was somewhat difficult due to significant looping. Successful completion of the procedure was aided by changing the patient to a supine position, using manual pressure and straightening and shortening the scope to obtain bowel loop reduction. The patient tolerated the procedure well. The quality of the bowel preparation was adequate to identify polyps. The ileocecal valve, appendiceal orifice, and rectum were photographed. Scope Withdrawal Time: 0 hours 7 minutes 7 seconds Moderate Sedation: See the other procedure note for documentation of moderate sedation with intraservice time. MAC anesthesia was administered by the anesthesia team. Total Procedure Duration: 0 hours 22 minutes 5 seconds Findings: The perianal and digital rectal examinations were normal. Internal hemorrhoids were found during retroflexion. The hemorrhoids were small and Grade I (internal hemorrhoids that do not prolapse). The entire examined colon appeared normal. Impression: - Internal hemorrhoids. - The entire examined colon is normal. - No specimens collected. Recommendation: - Discharge patient to home. - Patient has a contact number available for emergencies. The signs and symptoms of potential delayed complications were discussed with the patient. Return to normal activities tomorrow. Written discharge instructions were provided to the patient. - Resume previous diet. - Continue present medications. - Repeat colonoscopy in 10 years for screening purposes. - Return to referring provider in 2 weeks. Procedure Code(s): --- Professional --- 76592, Colonoscopy, flexible; diagnostic, including collection of specimen(s) by brushing or washing, when performed (separate procedure) Diagnosis Code(s): --- Professional --- Z12.11, Encounter for screening for malignant neoplasm of colon K64.0, First degree hemorrhoids CPT copyright 2020 [employer]. All rights reserved. The codes documented in this report are preliminary and upon crew leader gluing review may be revised to meet current compliance requirements. Attending Participation: I personally performed the entire procedure. Scope In: 12:17:55 PM Scope Out: 12:40:00 PM DO Fredo [place], 06/24/2024 12:45:12 PM This report has been signed e (more content not included)... Normal [facility] Colonoscopy Study observatio non 06-24-2024 [facility] Gastrointestinal Endoscopy Patient Name: Ling Dias Procedure Date: 06/24/2024 11:58 AM Date of : 1970 Admit Type: Outpatient Age: 54 Room: [facility] Gender: Female Note Status: Finalized Attending MD: Fredo Garcia , , [id number] Procedure: Colonoscopy Indications: Screening for colorectal malignant neoplasm Providers: Fredo Garcia Patient Profile: This is a 54 year old female. Refer to note in patient chart for documentation of history and physical. Last Colonoscopy: date unknown. Referring Physician: Radha Navarro (Referring MD) Medicines: Monitored Anesthesia Care Complications: No immediate complications. Requesting Provider: Procedure: Pre-Anesthesia Assessment: - Prior to the procedure, a History and Physical was performed, and patient medications and allergies were reviewed. The patient is competent. The risks and benefits of the procedure and the sedation options and risks were discussed with the patient. All questions were answered and informed consent was obtained. Patient identification and proposed procedure were verified by the physician, the nurse, the anesthesiologist and the psychiatric aide in the pre-procedure area in the endoscopy suite. Mental Status Examination: alert and oriented. Airway Examination: normal oropharyngeal airway and neck mobility. Respiratory Examination: clear to auscultation. CV Examination: normal. Prophylactic Antibiotics: The patient does not require prophylactic antibiotics. Prior Anticoagulants: The patient has taken no anticoagulant or antiplatelet agents. ASA Grade Assessment: II - A patient with mild systemic disease. After reviewing the risks and benefits, the patient was deemed in satisfactory condition to undergo the procedure. The anesthesia plan was to use monitored anesthesia care (MAC). Immediately prior to administration of medications, the patient was re-assessed for adequacy to receive sedatives. The heart rate, respiratory rate, oxygen saturations, blood pressure, adequacy of pulmonary ventilation, and response to care were monitored throughout the procedure. The physical status of the patient was re-assessed after the procedure. After I obtained informed consent, the scope was passed under direct vision. Throughout the procedure, the patient's blood pressure, pulse, and oxygen saturations were monitored continuously. The Colonoscope was introduced through the anus and advanced to the cecum, identified by the appendiceal orifice, ileocecal valve and palpation. The colonoscopy was somewhat difficult due to significant looping. Successful completion of the procedure was aided by changing the patient to a supine position, using manual pressure and straightening and shortening the scope to obtain bowel loop reduction. The patient tolerated the procedure well. The quality of the bowel preparation was adequate to identify polyps. The ileocecal valve, appendiceal orifice, and rectum were photographed. Scope Withdrawal Time: 0 hours 7 minutes 7 seconds Moderate Sedation: See the other procedure note for documentation of moderate sedation with intraservice time. MAC anesthesia was administered by the anesthesia team. Total Procedure Duration: 0 hours 22 minutes 5 seconds Findings: The perianal and digital rectal examinations were normal. Internal hemorrhoids were found during retroflexion. The hemorrhoids were small and Grade I (internal hemorrhoids that do not prolapse). The entire examined colon appeared normal. Impression: - Internal hemorrhoids. - The entire examined colon is normal. - No specimens collec (more content not included)... PROVATION [facility] Radiology Study observation (narrative) [facility] HISTORY PHYSICALon HISTORY PHYSICAL HNO ID: [id number] Author: RFEDO GARCIA DO Service: General Surgery Author Type: Physician Type: H&P Filed: 06/24/2024 12:15 Note Text: PROCEDURAL SEDATION HISTORY AND PHYSICAL EXAM SERVICE DATE: 06/24/2024 SERVICE TIME: 12:15 PM Subjective HPI: This is a 54 year old female who presents for colonoscopy PAST ANESTHESIA HISTORY: No history of adverse event PAST MEDICAL HISTORY Diagnosis Date COVID-19 De Quervain's disease (tenosynovitis) Depression Dermatitis Elevated LFTs CHAYO (generalized anxiety disorder) Gallbladder sludge GERD (gastroesophageal reflux disease) History of endometriosis Hyperlipidemia Hypertension Hypothyroidism Increased BMI Insomnia Pars defect of lumbar spine Renal insufficiency Seasonal allergies Vitamin D deficiency PAST SURGICAL HISTORY Procedure Laterality Date DELIVERY ONLY , low cervical, X-2 ESSURE 05/13/2010 Dr Yoder HYSTEROSCOPY, DIAGNOSTIC (SEPARATE 05/18/2019 INSERT INTRAUTERINE DEVICE 03/13/2005 Mirena PAST SURGICAL HISTORY OF BONE RECONSTRUCTION RT. FOOT PAST SURGICAL HISTORY OF 07/08/2006 Bone reconstruction on Left foot. Prior to Admission medications as of 06/24/24 1018 Medication Sig Last Dose Taking cholecalciferol, Vitamin D3, (VITAMIN D3) 1,250 mcg (50,000 unit) cap capsule Take 50,000 Units by mouth once every month. Past Week Yes amLODIPine (NORVASC) 5 mg tablet Take 5 mg by mouth once daily. 06/24/2024 Yes sertraline (ZOLOFT) 50 mg tablet Take 50 mg by mouth once daily. 06/24/2024 Yes losartan (COZAAR) 100 mg tablet Take 100 mg by mouth once daily. 06/24/2024 Yes omeprazole (PRILOSEC) 40 mg capsule Take 40 mg by mouth once daily. 06/24/2024 Yes levothyroxine (LEVOXYL) 50 mcg tablet Take 50 mcg by mouth daily before breakfast. 06/24/2024 Yes venlafaxine ER (EFFEXOR XR) 150 mg 24 hr capsule Take 1 capsule by mouth once daily. 06/24/2024 Yes acetaminophen 325 mg cap Take 2 capsules by mouth every 6 hours as needed for pain. busPIRone (BUSPAR) 10 mg tablet Take 10 mg by mouth three times a day as needed (anxiety). meclizine (ANTIVERT) 25 mg tab Take 25 mg by mouth three times a day as needed (vertigo). ALLERGIES No Known Allergies Objective PHYSICAL EXAM: The remainder of the physical exam is noncontributory. AIRWAY: Airway Visualization of Uvula: Yes Mouth opening greater than 2 fingerbreadths: Yes Neck Full Range of Motion: Yes LUNGS: Lungs clear to auscultation CARDIAC: Regular rhythm,Regular rate Assessment/Plan ASA Class: ASA Class: Patient with mild systemic disease Active Problems: * No active hospital problems. * Resolved Problems: * No resolved hospital problems. * Exogenous Class 2 Obesity Medication and Non-Pharmacologic VTE Prophylaxis/Anticoagu lants VTE Prophylaxis: NA Provisional Diagnosis/Treatment Plan: Colonoscopy with possible biopsy Sedation Goal: Anesthesia (MAC) SIGNATURE: Fredo Garcia DO PATIENT NAME: Ling Dias DATE: June 24, 2024 TIME: 12:14 PM Normal [facility] Absolute neutrophil countOrd ered By: Ghanshyam Puente on 06-11-2024 Neutrophils (Bld) [#/Vol] 2.7 10*3/uL 2.0-7.7 [facility] Albumin to globulin ratioOrd ered By: Ghanshyam Puente on 06-11-2024 Albumin/Globulin [Mass ratio] 0.8 {ratio} Low 0.9-2.4 [facility] Basophil percentageOrdered B y: Ghanshyam Puente on 06-11-2024 Basophils/100 WBC (Bld) 0.7 % 0-1 [facility] Bilirubin, totalOrdered By: Ghanshyam Puente on 06-11-2024 Bilirubin [Mass/Vol] 1.20 mg/dL High 0.20-1.00 [facility] Comment on above: For patients on eltr ombopag therapy, use of Dimension Brandon TBIL is not recommended. Blood urea nitrogen (BUN)/cr eatinine ratioOrdered By: Ghanshyam Puente on 06-11-2024 Urea nitrogen/Creatinine [Mass ratio] 13.3 mg/mg -20 [facility] CBC W/Diff, Automatedon 05-15 Absolute Lymph 1.31 X10 3/uL Normal 0.83-4.51 [facility] Comment on above: Performed By: #### L 500.4050, L100.0100 #### [facility] Laboratory [address] [place], [address] Absolute Neut 2.7 X10 3/uL Normal 2.0-7.7 [facility] Comment on above: Performed By: #### L 500.4050, L100.0100 #### [facility] [address] [place], [address] Basophils/100 WBC (Bld) 0.7 % Normal 0-1 [facility] Comment on above: Performed By: #### L 500.4050, L100.0100 #### [facility] [address] [place], [address] Eosinophils/100 WBC (Bld) 0.0 % Normal 0-5 [facility] Comment on above: Performed By: #### L 500.4050, L100.0100 #### [facility] [address] [place], [address] Erythrocyte distribution width (RBC) [Ratio] 13.4 % Normal 11.6-14.6 [facility] Comment on above: Performed By: #### L 500.4050, L100.0100 #### [facility] [address] [place], [address] Hematocrit (Bld) [Volume fraction] 38.4 % Normal 37-47 [facility] Comment on above: Performed By: #### L 500.4050, L100.0100 #### [facility] [address] [place], [address] Hemoglobin (Bld) [Mass/Vol] 12.7 g/dL Normal 12.0-15.0 [facility] Comment on above: Performed By: #### L 500.4050, L100.0100 #### [facility] [address] [place], [address] IG% 0.500 Normal 0.0-0.9 [facility] Comment on above: Result Comment: IG% - Immature Granulocytes (promyelocytes, myelocytes and metamyelocytes) > 1% indicates that a LEFT SHIFT is Present. Performed By: #### L 500.4050, L100.0100 #### [facility] [address] [place], [address] Lymphocytes/100 WBC (Bld) 30.6 % Normal 19-41 [facility] Comment on above: Performed By: #### L 500.4050, L100.0100 #### [facility] [address] [place], [address] MCH (RBC) [Entitic mass] 27.0 pg Normal 27.0-32.0 [facility] Comment on above: Performed By: #### L 500.4050, L100.0100 #### [facility] [address] [place], [address] MCHC (RBC) [Mass/Vol] 33.1 g/dL Normal 32-36 [facility] Comment on above: Performed By: #### L 500.4050, L100.0100 #### [facility] [address] [place], [address] MCV (RBC) [Entitic vol] 81.7 fL Normal 81-99 [facility] Comment on above: Performed By: #### L 500.4050, L100.0100 #### [facility] [address] [place], [address] Monocytes/100 WBC (Bld) 6.1 % Normal 0-10 [facility] Comment on above: Performed By: #### L 500.4050, L100.0100 #### [facility] [address] [place], [address] Neutrophils/100 WBC (Bld) 62.1 % Normal 47-70 [facility] Comment on above: Performed By: #### L 500.4050, L100.0100 #### [facility] [address] [place], [address] Nucleated RBC (Bld) [#/Vol] 0 10*3/uL Normal 0-5 [facility] Comment on above: Performed By: #### L 500.4050, L100.0100 #### [facility] [address] [place], [address] Platelet mean volume (Bld) [Entitic vol] 9.6 fL Normal 6.2-12.0 [facility] Comment on above: Performed By: #### L 500.4050, L100.0100 #### [facility] [address] [place], [address] Platelets (Bld) [#/Vol] 213 10*3/uL Normal 150-450 [facility] Comment on above: Performed By: #### L 500.4050, L100.0100 #### [facility] [address] [place], [address] RBC (Bld) [#/Vol] 4.70 10*6/uL Normal 4.2-5.4 [facility] Comment on above: Performed By: #### L 500.4050, L100.0100 #### [facility] [address] [place], [address] RDW SD 39.9 fl Normal 35.1-43.9 [facility] Comment on above: Performed By: #### L 500.4050, L100.0100 #### [facility] [address] [place], [address] WBC (Bld) [#/Vol] 4.3 10*3/uL Low 4.4-11.0 [facility] Comment on above: Performed By: #### L 500.4050, L100.0100 #### [facility] [address] [place], [address] Carbon dioxide measurementOr dered By: Ghanshyam Puente on 06-11-2024 CO2 [Moles/Vol] 25.0 mmol/L 21.0-32.0 [facility] Chloride measurementOrdered By: Ghanshyam Puente on 06-11-2024 Chloride [Moles/Vol] 110 mmol/L High 98-107 [facility] Comprehensive Metabolic Prof ilon 06-11-2024 Albumin [Mass/Vol] 3.1 g/dL Low 3.2-5.0 [facility] Comment on above: Performed By: #### L 500.4050, L100.0100 #### [facility] [address] [place], [address] Albumin/Globulin [Mass ratio] 0.8 {ratio} Low 0.9-2.4 [facility] Comment on above: Performed By: #### L 500.4050, L100.0100 #### [facility] [address] [place], [address] ALK P 331 U/L High 45-117 [facility] Comment on above: Performed By: #### L 500.4050, L100.0100 #### [facility] [address] [place], [address] ALT [Catalytic activity/Vol] 430 U/L High 13-56 [facility] Comment on above: Performed By: #### L 500.4050, L100.0100 #### [facility] [address] [place], [address] AST [Catalytic activity/Vol] 271 U/L High 15-37 [facility] Comment on above: Performed By: #### L 500.4050, L100.0100 #### [facility] [address] [place], [address] Bilirubin [Mass/Vol] 1.20 mg/dL High 0.20-1.00 [facility] Comment on above: Result Comment: For patients on eltrombopag therapy, use of Dimension Brandon TBIL is not recommended. Performed By: #### L 500.4050, L100.0100 #### [facility] [address] [place], [address] BUN/CRE 13.3 RATIO Normal 10-20 [facility] Comment on above: Performed By: #### L 500.4050, L100.0100 #### [facility] [address] [place], [address] CA,Total 8.6 mg/dL Normal 8.5-10.1 [facility] Comment on above: Performed By: #### L 500.4050, L100.0100 #### [facility] [address] [place], [address] Chloride [Moles/Vol] 110 mmol/L High 98-107 [facility] Comment on above: Performed By: #### L 500.4050, L100.0100 #### [facility] [address] [place], [address] CO2 [Moles/Vol] 25.0 mmol/L Normal 21.0-32.0 [facility] Comment on above: Performed By: #### L 500.4050, L100.0100 #### [facility] [address] [place], [address] Creatinine [Mass/Vol] 0.75 mg/dL Normal 0.55-1.02 [facility] Comment on above: Result Comment: The validity of the calculated GFR GFRAA in patients over 70 years has not been determined. Clinical correlation is essential. Performed By: #### L 500.4050, L100.0100 #### [facility] [address] [place], [address] ECRCL 118.46 ml/min Normal [facility] Comment on above: Performed By: #### L 500.4050, L100.0100 #### [facility] [address] [place], [address] EST GFR - AA 104 mL/min Normal >60 [facility] Comment on above: Result Comment: Afri can [place] GFR Calc Performed By: #### L 500.4050, L100.0100 #### [facility] [address] [place], [address] GAP 5 Normal 5-15 [facility] Comment on above: Performed By: #### L 500.4050, L100.0100 #### [facility] [address] [place], [address] GFR/1.73 sq M.predicted among non-blacks MDRD (S/P/Bld) [Vol rate/Area] 86 mL/min/{1.73_m2} Normal >60 [facility] Comment on above: Result Comment: Non- GFR Calc Performed By: #### L 500.4050, L100.0100 #### [facility] [address] [place], [address] Globulin (S) [Mass/Vol] 4.1 g/dL Normal 2.2-4.2 [facility] Comment on above: Performed By: #### L 500.4050, L100.0100 #### [facility] [address] [place], [address] Glucose [Mass/Vol] 90 mg/dL Normal 74-106 [facility] Comment on above: Performed By: #### L 500.4050, L100.0100 #### [facility] [address] [place], [address] Potassium [Moles/Vol] 3.5 mmol/L Normal 3.5-5.1 [facility] Comment on above: Performed By: #### L 500.4050, L100.0100 #### [facility] [address] [place], [address] Sodium [Moles/Vol] 140 mmol/L Normal 136-145 [facility] Comment on above: Performed By: #### L 500.4050, L100.0100 #### [facility] [address] [place], [address] T PROT 7.2 g/dL Normal 6.4-8.2 [facility] Comment on above: Performed By: #### L 500.4050, L100.0100 #### [facility] [address] [place], [address] Urea nitrogen [Mass/Vol] 10 mg/dL Normal 7-18 [facility] Comment on above: Performed By: #### L 500.4050, L100.0100 #### [facility] [address] [place], [address] Discharge Instructionon -3 Discharge Instruction [facility] Medical Records Department [address] [place] [address] Instructions for Home/Discharge Instructions 06/11/24 1028 MR#: [id number] Acct: [id number] Name: LING DIAS Rep #: [id number] : 1970 54 From: Ghanshyam Puente MD PCP: Charlee Humphries NP-C Status:ADM IN Discharge Instructions Diet Discharge Diet: Low fat / Low cholesterol DC O2, CPAP, BIPAP needs Additional Home O2 Discharge instructions: No Dressing / Incision Discharge Activity: Return to Normal Activity Dressing / Incision Call your doctor if you observe: Fever of 101 or Higher, Shortness of breath, Dizziness, Fainting spells, Swelling in the ankles, Chest pain and Increased palpitations (irregular heartbeat) Follow Up Care Test Results: Test results from this visit will be discussed in further detail at your follow-up appointment, if applicable. Discharge Plan Admission Admit Date/Time: 06/09/24 16:55 Attending Provider: Ghanshyam Puente Primary Care Provider: Charlee Humphries NP Consulting Providers: Kadie Ta Discharge Orders/Prescriptions Prescriptions: Continued levothyroxine 25 MCG tablet 50 mcg PO DAILY amlodipine 5 mg tablet 5 mg PO DAILY venlafaxine 150 mg capsule,extended release 24hr 150 mg PO DAILY losartan 100 mg tablet 100 mg PO DAILY omeprazole 40 mg capsule,delayed release(DR/EC) 40 mg PO DAILY meclizine [Antivert] 25 mg tablet,chewable 25 mg PO DAILY PRN (Reason: dizziness) amoxicillin-pot clavulanate 875-125 mg tablet 1 tab PO Q12H guaifenesin 600 mg tablet extended release 12hr 600 mg PO BID buspirone 5 MG tablet 10 mg PO QHS PRN sertraline 25 MG tablet 50 mg PO DAILY Referrals / Follow Up: Charlee Humphries ENGINEERING AIDE, ENGINEERING AIDE-C [Primary Care Provider] - Within 1 Week Disposition Disposition (needs filled in before D/C Order can be placed): Home, Self Care 06/11/24 1030 Ghanshyam Puente MD CC: ENGINEERING AIDE-C Charlee Humphries; Dr. Kadie Ta MD Signed Normal [facility] Eosinophil percentageOrdered By: Ghanshyam Puente on 06-11-2024 Eosinophils/100 WBC (Bld) 0.0 % 0-5 [facility] Erythrocyte distribution wid th ratioOrdered By: Ghanshyam Puente on 06-11-2024 Erythrocyte distribution width (RBC) [Ratio] 13.4 % 11.6-14.6 [facility] Erythrocyte distribution wid th standard deviationOrdered By: Ghanshyam Puente on 06-11-2024 Erythrocyte distribution width (RBC) [Entitic vol] 39.9 fL 35.1-43.9 [facility] Estimated glomerular filtrat ion rate (GFR) AmericanOrdered By: Ghanshyam Puente on 06-11-2024 Estimated GFR (MDRD) Amer 104 mL/min >60 [facility] Comment on above: GFR Calc Estimation of creatinine jorge aranceOrdered By: Ghanshyam Puente on 06-11-2024 Estimated Creatinine Clearance Calc 118.46 ml/min [facility] Glomerular filtration rate ( GFR) estimationOrdered By: Ghanshyam Puente on 06-11-2024 Estimated GFR (MDRD) Non-Af Amer 86 mL/min >60 [facility] Comment on above: Non- GFR Calc Glucose measurementOrdered B y: Ghanshyam Puente on 06-11-2024 Glucose [Mass/Vol] 90 mg/dL 74-106 [facility] Hematocrit Auto (Bld) [Volum e fraction]Ordered By: Ghanshyam Puente on 06-11-2024 Hematocrit (Bld) [Volume fraction] 38.4 % 37-47 [facility] Hemoglobin measurementOrdere d By: Ghanshyam Puente on 06-11-2024 Hemoglobin (Bld) [Mass/Vol] 12.7 g/dL 12.0-15.0 [facility] Immature granulocytes/100 WB C Auto (Bld)Ordered By: Ghanshyam Puente on 06-11-2024 Immature granulocytes/100 WBC (Bld) 0.500 % 0.0-0.9 [facility] Comment on above: IG% - Immature Granu locytes (promyelocytes, myelocytes and metamyelocytes) > 1% indicates that a LEFT SHIFT is Present. Laboratory - Chemistry and C hemistry - challengeOrdered By: Ghanshyam Puente on 06-11-2024 AST [Catalytic activity/Vol] 271 U/L High 15-37 [facility] Lymphocytes Auto (Unsp spec) [#/Vol]Ordered By: Ghanshyam Puente on 06-11-2024 Lymphocytes (Bld) [#/Vol] 1.31 10*3/uL 0.83-4.5 1 [facility] Lymphocytes/100 WBC Auto (Un sp spec)Ordered By: Ghanshyam Puente on 06-11-2024 Lymphocytes/100 WBC (Bld) 30.6 % 19-41 [facility] MCV (mean corpuscular volume ) determinationOrdered By: Ghanshyam Puente on 06-11-2024 MCV (RBC) [Entitic vol] 81.7 fL 81-99 [facility] Mean corpuscular hemoglobin (MCH) determinationOrdered By: Ghanshyam Puente on 06-11-2024 MCH (RBC) [Entitic mass] 27.0 pg 27.0-32.0 [facility] Mean corpuscular hemoglobin concentration (MCHC) determinationOrdered By: Ghanshyam Puente on 06-11-2024 MCHC (RBC) [Mass/Vol] 33.1 g/dL 32-36 [facility] Mean platelet volume determi nationOrdered By: Ghanshyam Puente on 06-11-2024 Platelet mean volume (Bld) [Entitic vol] 9.6 fL 6.2-12.0 [facility] Monocyte percentageOrdered B y: Ghanshyam Puente on 06-11-2024 Monocytes/100 WBC (Bld) 6.1 % 0-10 [facility] Neutrophil percentageOrdered By: Ghanshyam Puente on 06-11-2024 Neutrophils/100 WBC (Bld) 62.1 % 47-70 [facility] Nucleated red blood cell per centageOrdered By: Ghanshyam Puente on 06-11-2024 Nucleated RBC/100 WBC (Bld) [Ratio] 0 % 0-5 [facility] Platelet countOrdered By: Gina Puente on 06-11-2024 Platelets (Bld) [#/Vol] 213 10*3/uL 150-450 [facility] Potassium measurementOrdered By: Ghanshyam Puente on 06-11-2024 Potassium [Moles/Vol] 3.5 mmol/L 3.5-5.1 [facility] RBC Auto (Bld) [#/Vol]Ordere d By: Ghanshyam Puente on 06-11-2024 RBC (Bld) [#/Vol] 4.70 10*6/uL 4.2-5.4 [facility] Serum anion gap measurementO rdered By: Ghanshyam Puente on 06-11-2024 Anion gap [Moles/Vol] 5 mmol/L 5-15 [facility] Serum globulin measurementOr dered By: Ghanshyam Puente on 06-11-2024 Globulin (S) [Mass/Vol] 4.1 g/dL 2.2-4.2 [facility] Serum or plasma alanine umaña otransferase (ALT) measurementOrdered By: Ghanshyam Puente on 06-11-2024 ALT [Catalytic activity/Vol] 430 U/L High 13-56 [facility] Serum or plasma albumin eliel urement (mass/volume)Ordered By: Ghanshyam Puente on 06-11-2024 Albumin [Mass/Vol] 3.1 g/dL Low 3.2-5.0 [facility] Serum or plasma alkaline josefina sphatase measurementOrdered By: Ghanshyam Puetne on 06-11-2024 ALP [Catalytic activity/Vol] 331 U/L High 45-117 [facility] Serum or plasma calcium eliel urement (mass/volume)Ordered By: Ghanshyam Puente on 06-11-2024 Calcium [Mass/Vol] 8.6 mg/dL 8.5-10.1 [facility] Serum or plasma creatinine m easurement (mass/volume)Ordered By: Ghanshyam Puente on 06-11-2024 Creatinine [Mass/Vol] 0.75 mg/dL 0.55-1.02 [facility] Comment on above: The validity of the calculated GFR & GFRAA in patients over 70 years has not been determined. Clinical correlation is essential. Serum or plasma urea nitroge n measurement (mass/volume)Ordered By: Ghanshyam Puente on 06-11-2024 Urea nitrogen [Mass/Vol] 10 mg/dL 7-18 [facility] Sodium levelOrdered By: Theo Puente on 06-11-2024 Sodium [Moles/Vol] 140 mmol/L 136-145 [facility] Total proteinOrdered By: Jose Antonio Puente on 06-11-2024 Protein [Mass/Vol] 7.2 g/dL 6.4-8.2 [facility] White blood cell (WBC) count Ordered By: Ghanshyam Puente on 06-11-2024 WBC (Bld) [#/Vol] 4.3 10*3/uL Low 4.4-11.0 [facility] Basic Metabolic Profile (BMP )on 06-10-2024 BUN/CRE 17.0 RATIO Normal 10-20 [facility] Comment on above: Performed By: #### L 501.5200, L501.2300, L500.2500, L300.3900, L100.0100, L501.9520, L500.3400, L500.4050 #### [facility] [address] [place], [address] CA,Total 8.4 mg/dL Low 8.5-10.1 [facility] Comment on above: Performed By: #### L 501.5200, L501.2300, L500.2500, L300.3900, L100.0100, L501.9520, L500.3400, L500.4050 #### [facility] [address] [place], [address] Chloride [Moles/Vol] 108 mmol/L High 98-107 [facility] Comment on above: Performed By: #### L 501.5200, L501.2300, L500.2500, L300.3900, L100.0100, L501.9520, L500.3400, L500.4050 #### [facility] [address] [place], [address] CO2 [Moles/Vol] 28.0 mmol/L Normal 21.0-32.0 [facility] Comment on above: Performed By: #### L 501.5200, L501.2300, L500.2500, L300.3900, L100.0100, L501.9520, L500.3400, L500.4050 #### [facility] [facility] [address] [place], [address] Creatinine [Mass/Vol] 0.82 mg/dL Normal 0.55-1.02 [facility] Comment on above: Result Comment: The validity of the calculated GFR GFRAA in patients over 70 years has not been determined. Clinical correlation is essential. Performed By: #### L 501.5200, L501.2300, L500.2500, L300.3900, L100.0100, L501.9520, L500.3400, L500.4050 #### [facility] [address] [place], [address] ECRCL 108.34 ml/min Normal [facility] Comment on above: Performed By: #### L 501.5200, L501.2300, L500.2500, L300.3900, L100.0100, L501.9520, L500.3400, L500.4050 #### [facility] [address] [place], [address] EST GFR - AA 93 mL/min Normal >60 [facility] Comment on above: Result Comment: Afri can [place] GFR Calc Performed By: #### L 501.5200, L501.2300, L500.2500, L300.3900, L100.0100, L501.9520, L500.3400, L500.4050 #### [facility] [address] [place], [address] GAP 4 Low 5-15 [facility] Comment on above: Performed By: #### L 501.5200, L501.2300, L500.2500, L300.3900, L100.0100, L501.9520, L500.3400, L500.4050 #### [facility] [address] [place], [address] (926) GFR/1.73 sq M.predicted among non-blacks MDRD (S/P/Bld) [Vol rate/Area] 77 mL/min/{1.73_m2} Normal >60 [facility] Comment on above: Result Comment: Non- GFR Calc Performed By: #### L 501.5200, L501.2300, L500.2500, L300.3900, L100.0100, L501.9520, L500.3400, L500.4050 #### [facility] [address] [place], [address] Glucose [Mass/Vol] 86 mg/dL Normal 74-106 [facility] Comment on above: Performed By: #### L 501.5200, L501.2300, L500.2500, L300.3900, L100.0100, L501.9520, L500.3400, L500.4050 #### [facility] [address] [place], [address] Potassium [Moles/Vol] 3.8 mmol/L Normal 3.5-5.1 [facility] Comment on above: Performed By: #### L 501.5200, L501.2300, L500.2500, L300.3900, L100.0100, L501.9520, L500.3400, L500.4050 #### [facility] [address] [place], [address] Sodium [Moles/Vol] 141 mmol/L Normal 136-145 [facility] Comment on above: Performed By: #### L 501.5200, L501.2300, L500.2500, L300.3900, L100.0100, L501.9520, L500.3400, L500.4050 #### [facility] [address] [place], [address] Urea nitrogen [Mass/Vol] 14 mg/dL Normal 7-18 [facility] Comment on above: Performed By: #### L 501.5200, L501.2300, L500.2500, L300.3900, L100.0100, L501.9520, L500.3400, L500.4050 #### [facility] [address] [place], [place], [phone] Bilirubin directOrdered By: Kadie Ta on 06-10-2024 Bilirubin.direct [Mass/Vol] 0.34 mg/dL High 0.00-0.30 [facility] CBC W/Diff, Automatedon 05-14 Absolute Lymph 0.95 X10 3/uL Normal 0.83-4.51 [facility] Comment on above: Performed By: #### L 501.5200, L501.2300, L500.2500, L300.3900, L100.0100, L501.9520, L500.3400, L500.4050 #### [facility] [address] [place], [address] Absolute Neut 2.8 X10 3/uL Normal 2.0-7.7 [facility] Comment on above: Performed By: #### L 501.5200, L501.2300, L500.2500, L300.3900, L100.0100, L501.9520, L500.3400, L500.4050 #### [facility] [address] [place], [address] Basophils/100 WBC (Bld) 0.5 % Normal 0-1 [facility] Comment on above: Performed By: #### L 501.5200, L501.2300, L500.2500, L300.3900, L100.0100, L501.9520, L500.3400, L500.4050 #### [facility] [address] [place], [address] Eosinophils/100 WBC (Bld) 0.0 % Normal 0-5 [facility] Comment on above: Performed By: #### L 501.5200, L501.2300, L500.2500, L300.3900, L100.0100, L501.9520, L500.3400, L500.4050 #### [facility] [address] [place], [address] Erythrocyte distribution width (RBC) [Ratio] 14.0 % Normal 11.6-14.6 [facility] Comment on above: Performed By: #### L 501.5200, L501.2300, L500.2500, L300.3900, L100.0100, L501.9520, L500.3400, L500.4050 #### [facility] [address] [place], [address] Hematocrit (Bld) [Volume fraction] 39.2 % Normal 37-47 [facility] Comment on above: Performed By: #### L 501.5200, L501.2300, L500.2500, L300.3900, L100.0100, L501.9520, L500.3400, L500.4050 #### [facility] [address] [place], [address] Hemoglobin (Bld) [Mass/Vol] 12.4 g/dL Normal 12.0-15.0 [facility] Comment on above: Performed By: #### L 501.5200, L501.2300, L500.2500, L300.3900, L100.0100, L501.9520, L500.3400, L500.4050 #### [facility] [address] [place], [address] IG% 0.500 Normal 0.0-0.9 [facility] Comment on above: Result Comment: IG% - Immature Granulocytes (promyelocytes, myelocytes and metamyelocytes) > 1% indicates that a LEFT SHIFT is Present. Performed By: #### L 501.5200, L501.2300, L500.2500, L300.3900, L100.0100, L501.9520, L500.3400, L500.4050 #### [facility] [address] [place], [address] Lymphocytes/100 WBC (Bld) 23.5 % Normal 19-41 [facility] Comment on above: Performed By: #### L 501.5200, L501.2300, L500.2500, L300.3900, L100.0100, L501.9520, L500.3400, L500.4050 #### [facility] [address] [place], [address] MCH (RBC) [Entitic mass] 26.8 pg Low 27.0-32.0 [facility] Comment on above: Performed By: #### L 501.5200, L501.2300, L500.2500, L300.3900, L100.0100, L501.9520, L500.3400, L500.4050 #### [facility] [address] [place], [address] MCHC (RBC) [Mass/Vol] 31.6 g/dL Low 32-36 [facility] Comment on above: Performed By: #### L 501.5200, L501.2300, L500.2500, L300.3900, L100.0100, L501.9520, L500.3400, L500.4050 #### [facility] [address] [place], [address] MCV (RBC) [Entitic vol] 84.8 fL Normal 81-99 [facility] Comment on above: Performed By: #### L 501.5200, L501.2300, L500.2500, L300.3900, L100.0100, L501.9520, L500.3400, L500.4050 #### [facility] [address] [place], [address] Monocytes/100 WBC (Bld) 5.4 % Normal 0-10 [facility] Comment on above: Performed By: #### L 501.5200, L501.2300, L500.2500, L300.3900, L100.0100, L501.9520, L500.3400, L500.4050 #### [facility] [address] [place], [address] Neutrophils/100 WBC (Bld) 70.1 % High 47-70 [facility] Comment on above: Performed By: #### L 501.5200, L501.2300, L500.2500, L300.3900, L100.0100, L501.9520, L500.3400, L500.4050 #### [facility] [address] [place], [address] Nucleated RBC (Bld) [#/Vol] 0 10*3/uL Normal 0-5 [facility] Comment on above: Performed By: #### L 501.5200, L501.2300, L500.2500, L300.3900, L100.0100, L501.9520, L500.3400, L500.4050 #### [facility] [address] [place], [address] Platelet mean volume (Bld) [Entitic vol] 9.4 fL Normal 6.2-12.0 [facility] Comment on above: Performed By: #### L 501.5200, L501.2300, L500.2500, L300.3900, L100.0100, L501.9520, L500.3400, L500.4050 #### [facility] [address] [place], [address] Platelets (Bld) [#/Vol] 187 10*3/uL Normal 150-450 [facility] Comment on above: Performed By: #### L 501.5200, L501.2300, L500.2500, L300.3900, L100.0100, L501.9520, L500.3400, L500.4050 #### [facility] [address] [place], [address] RBC (Bld) [#/Vol] 4.62 10*6/uL Normal 4.2-5.4 [facility] Comment on above: Performed By: #### L 501.5200, L501.2300, L500.2500, L300.3900, L100.0100, L501.9520, L500.3400, L500.4050 #### [facility] [address] [place], [address] RDW SD 43.7 fl Normal 35.1-43.9 [facility] Comment on above: Performed By: #### L 501.5200, L501.2300, L500.2500, L300.3900, L100.0100, L501.9520, L500.3400, L500.4050 #### [facility] [address] [place], [place], [id number] WBC (Bld) [#/Vol] 4.1 10*3/uL Low 4.4-11.0 [facility] Comment on above: Performed By: #### L 501.5200, L501.2300, L500.2500, L300.3900, L100.0100, L501.9520, L500.3400, L500.4050 #### [facility] [address] [place], [place], [id number] Comprehensive Metabolic Prof ilon 06-10-2024 Albumin/Globulin [Mass ratio] 0.8 {ratio} Low 0.9-2.4 [facility] Comment on above: Performed By: #### L 501.5200, L501.2300, L500.2500, L300.3900, L100.0100, L501.9520, L500.3400, L500.4050 #### [facility] [address] [place], [place], [id number] International normalized rat io (INR) calculationOrdered By: Kadie Ta on 06-10-2024 INR Coag (Bld) [Relative time] 1.0 {INR} [facility] Liver Profileon 06-10-2024 Albumin [Mass/Vol] 3.2 g/dL Normal 3.2-5.0 [facility] Comment on above: Performed By: #### L 501.5200, L501.2300, L500.2500, L300.3900, L100.0100, L501.9520, L500.3400, L500.4050 #### [facility] [address] [place], [address] ALK P 180 U/L High 45-117 [facility] Comment on above: Performed By: #### L 501.5200, L501.2300, L500.2500, L300.3900, L100.0100, L501.9520, L500.3400, L500.4050 #### [facility] [address] [place], [address] ALT [Catalytic activity/Vol] 193 U/L High 13-56 [facility] Comment on above: Performed By: #### L 501.5200, L501.2300, L500.2500, L300.3900, L100.0100, L501.9520, L500.3400, L500.4050 #### [facility] [address] [place], [address] AST [Catalytic activity/Vol] 166 U/L High 15-37 [facility] Comment on above: Performed By: #### L 501.5200, L501.2300, L500.2500, L300.3900, L100.0100, L501.9520, L500.3400, L500.4050 #### [facility] [address] [place], [address] Bilirubin [Mass/Vol] 1.10 mg/dL High 0.20-1.00 [facility] Comment on above: Result Comment: For patients on eltrombopag therapy, use of Dimension Brandon TBIL is not recommended. Performed By: #### L 501.5200, L501.2300, L500.2500, L300.3900, L100.0100, L501.9520, L500.3400, L500.4050 #### [facility] [address] [place], [address] Bilirubin.direct [Mass/Vol] 0.34 mg/dL High 0.00-0.30 [facility] Comment on above: Performed By: #### L 501.5200, L501.2300, L500.2500, L300.3900, L100.0100, L501.9520, L500.3400, L500.4050 #### [facility] [address] [place], [address] Globulin (S) [Mass/Vol] 3.8 g/dL Normal 2.2-4.2 [facility] Comment on above: Performed By: #### L 501.5200, L501.2300, L500.2500, L300.3900, L100.0100, L501.9520, L500.3400, L500.4050 #### [facility] [address] [place], [place], [phone] (886) T PROT 7.0 g/dL Normal 6.4-8.2 [facility] Comment on above: Performed By: #### L 501.5200, L501.2300, L500.2500, L300.3900, L100.0100, L501.9520, L500.3400, L500.4050 #### [facility] [address] [place], [place], [id number] Magnesiumon 06-10-2024 Magnesium [Mass/Vol] 2.1 mg/dL Normal 1.6-2.6 [facility] Comment on above: Performed By: #### L 501.5200, L501.2300, L500.2500, L300.3900, L100.0100, L501.9520, L500.3400, L500.4050 ####[facility] [address] [place], [place], [phone] Magnesium measurementOrdered By: Kadie Ta on 06-10-2024 Magnesium [Mass/Vol] 2.1 mg/dL 1.6-2.6 [facility] Phosphoruson 06-10-2024 Phosphate [Mass/Vol] 2.9 mg/dL Normal 2.5-4.9 [facility] Comment on above: Performed By: #### L 501.5200, L501.2300, L500.2500, L300.3900, L100.0100, L501.9520, L500.3400, L500.4050 #### [facility] [address] [place], [address] Phosphorus measurementOrdere d By: Kadie Ta on 06-10-2024 Phosphorus Level 2.9 mg/dL 2.5-4.9 [facility] Prothrombin Time w/INRon INR Coag (PPP) [Relative time] 1.0 {INR} Normal [facility] Comment on above: Performed By: #### L 501.5200, L501.2300, L500.2500, L300.3900, L100.0100, L501.9520, L500.3400, L500.4050 #### [facility] [address] [place], [place], [phone] PT Coag (PPP) [Time] 13.5 s Normal 11.7-14.9 [facility] Comment on above: Performed By: #### L 501.5200, L501.2300, L500.2500, L300.3900, L100.0100, L501.9520, L500.3400, L500.4050 #### [facility] [address] [place], [place], [phone] Prothrombin timeOrdered By: Kadie Ta on 06-10-2024 PT Coag (PPP) [Time] 13.5 s 11.7-14.9 [facility] TSH QnOrdered By: Kadie ortega on 06-10-2024 Thyroid Stimulating Hormone (TSH) 2.440 uIU/mL 0.358-3.740 [facility] Thyroid Stim Hormone (TSH)on 06-10-2024 TSH 2.440 uIU/mL Normal 0.358-3.740 [facility] Comment on above: Performed By: #### L 501.5200, L501.2300, L500.2500, L300.3900, L100.0100, L501.9520, L500.3400, L500.4050 ####[facility] [address] [place], [place], [phone] Triglycerideson 06-10-2024 Triglyceride [Mass/Vol] 107 mg/dL Normal [facility] Comment on above: Result Comment: The drugs N-Acetylcysteine and Metamizole may falsely depress this assay. Serum Triglycerides Reference Interval Normal <150 mg/dL Borderline high 150 - 199 mg/dL High 200 - 499 mg/dL Very High > or = 500 mg/dL Performed By: #### L 500.4050, L100.0100 #### [facility] [address] [place], [address] Triglycerides measurementOrd ered By: Ghanshyam Puente on 06-10-2024 Triglyceride [Mass/Vol] 107 mg/dL <199 [facility] Comment on above: The drugs N-Acetylcy steine and Metamizole may falsely depress this assay.Serum Triglycerides Reference Interval Normal <150 mg/dL Borderline high 150 - 199 mg/dL High 200 - 499 mg/dL Very High > or = 500 mg/dL Bilirubin Test strip Ql (U)O rdered By: Marquise Brown on 06-09-2024 Bilirubin Ql (U) Negative Negative [facility] CBC W/Diff, Automatedon - Absolute Lymph 1.23 X10 3/uL Normal 0.83-4.51 [facility] Comment on above: Performed By: #### L 500.4050, L501.2450, L100.0100, L501.4020 ####[facility] [address] [place], [address] Absolute Neut 4.2 X10 3/uL Normal 2.0-7.7 [facility] Comment on above: Performed By: #### L 500.4050, L501.2450, L100.0100, L501.4020 ####[facility] [address] [place], [address] Basophils/100 WBC (Bld) 0.5 % Normal 0-1 [facility] Comment on above: Performed By: #### L 500.4050, L501.2450, L100.0100, L501.4020 ####[facility] [address] [place], [address] Eosinophils/100 WBC (Bld) 0.0 % Normal 0-5 [facility] Comment on above: Performed By: #### L 500.4050, L501.2450, L100.0100, L501.4020 ####[facility] [address] [place], [address] Erythrocyte distribution width (RBC) [Ratio] 13.8 % Normal 11.6-14.6 [facility] Comment on above: Performed By: #### L 500.4050, L501.2450, L100.0100, L501.4020 ####[facility] [address] [place], [address] Hematocrit (Bld) [Volume fraction] 43.2 % Normal 37-47 [facility] Comment on above: Performed By: #### L 500.4050, L501.2450, L100.0100, L501.4020 ####[facility] [address] [place], [address] Hemoglobin (Bld) [Mass/Vol] 14.0 g/dL Normal 12.0-15.0 [facility] Comment on above: Performed By: #### L 500.4050, L501.2450, L100.0100, L501.4020 ####[facility] [address] [place], [address] IG% 0.300 Normal 0.0-0.9 [facility] Comment on above: Result Comment: IG% - Immature Granulocytes (promyelocytes, myelocytes and metamyelocytes) > 1% indicates that a LEFT SHIFT is Present. Performed By: #### L 500.4050, L501.2450, L100.0100, L501.4020 ####[facility] [address] [place], [address] Lymphocytes/100 WBC (Bld) 21.4 % Normal 19-41 [facility] Comment on above: Performed By: #### L 500.4050, L501.2450, L100.0100, L501.4020 ####[facility] [address] [place], [address] MCH (RBC) [Entitic mass] 27.0 pg Normal 27.0-32.0 [facility] Comment on above: Performed By: #### L 500.4050, L501.2450, L100.0100, L501.4020 ####[facility] [address] [place], [address] MCHC (RBC) [Mass/Vol] 32.4 g/dL Normal 32-36 [facility] Comment on above: Performed By: #### L 500.4050, L501.2450, L100.0100, L501.4020 ####[facility] [address] [place], [address] MCV (RBC) [Entitic vol] 83.2 fL Normal 81-99 [facility] Comment on above: Performed By: #### L 500.4050, L501.2450, L100.0100, L501.4020 ####[facility] [address] [place], [address] Monocytes/100 WBC (Bld) 5.1 % Normal 0-10 [facility] Comment on above: Performed By: #### L 500.4050, L501.2450, L100.0100, L501.4020 ####[facility] [address] [place], [address] Neutrophils/100 WBC (Bld) 72.7 % High 47-70 [facility] Comment on above: Performed By: #### L 500.4050, L501.2450, L100.0100, L501.4020 ####[facility] [address] [place], [address] Nucleated RBC (Bld) [#/Vol] 0 10*3/uL Normal 0-5 [facility] Comment on above: Performed By: #### L 500.4050, L501.2450, L100.0100, L501.4020 ####[facility] [address] [place], [address] Platelet mean volume (Bld) [Entitic vol] 9.8 fL Normal 6.2-12.0 [facility] Comment on above: Performed By: #### L 500.4050, L501.2450, L100.0100, L501.4020 ####[facility] [address] [place], [address] Platelets (Bld) [#/Vol] 216 10*3/uL Normal 150-450 [facility] Comment on above: Performed By: #### L 500.4050, L501.2450, L100.0100, L501.4020 ####[facility] [address] [place], [address] RBC (Bld) [#/Vol] 5.19 10*6/uL Normal 4.2-5.4 [facility] Comment on above: Performed By: #### L 500.4050, L501.2450, L100.0100, L501.4020 ####[facility] [address] [place], [address] RDW SD 41.7 fl Normal 35.1-43.9 [facility] Comment on above: Performed By: #### L 500.4050, L501.2450, L100.0100, L501.4020 ####[facility] [address] [place], [address] WBC (Bld) [#/Vol] 5.7 10*3/uL Normal 4.4-11.0 [facility] Comment on above: Performed By: #### L 500.4050, L501.2450, L100.0100, L501.4020 ####[facility] [address] [place], [address] Comprehensive Metabolic Prof ilon 06-09-2024 Albumin [Mass/Vol] 3.6 g/dL Normal 3.2-5.0 [facility] Comment on above: Order Comment: 'TROP ' Serial specimen #1, #2 or #3: 1 Performed By: #### L 500.4050, L100.0100 #### [facility] [address] [place], [address] Albumin/Globulin [Mass ratio] 0.8 {ratio} Low 0.9-2.4 [facility] Comment on above: Order Comment: 'TROP ' Serial specimen #1, #2 or #3: 1 Performed By: #### L 500.4050, L100.0100 #### [facility] [address] [place], [address] ALK P 156 U/L High 45-117 [facility] Comment on above: Order Comment: 'TROP ' Serial specimen #1, #2 or #3: 1 Performed By: #### L 500.4050, L100.0100 #### [facility] [address] [place], [address] ALT [Catalytic activity/Vol] 73 U/L High 13-56 [facility] Comment on above: Order Comment: 'TROP ' Serial specimen #1, #2 or #3: 1 Performed By: #### L 500.4050, L100.0100 #### [facility] [address] [place], [address] AST [Catalytic activity/Vol] 77 U/L High 15-37 [facility] Comment on above: Order Comment: 'TROP ' Serial specimen #1, #2 or #3: 1 Performed By: #### L 500.4050, L100.0100 #### [facility] [address] [place], [address] Bilirubin [Mass/Vol] 0.80 mg/dL Normal 0.20-1.00 [facility] Comment on above: Order Comment: 'TROP ' Serial specimen #1, #2 or #3: 1 Result Comment: For patients on eltrombopag therapy, use of Dimension Brandon TBIL is not recommended. Performed By: #### L 500.4050, L100.0100 #### [facility] [address] [place], [address] BUN/CRE 19.0 RATIO Normal 10-20 [facility] Comment on above: Order Comment: 'TROP ' Serial specimen #1, #2 or #3: 1 Performed By: #### L 500.4050, L100.0100 #### [facility] [address] [place], [address] CA,Total 8.7 mg/dL Normal 8.5-10.1 [facility] Comment on above: Order Comment: 'TROP ' Serial specimen #1, #2 or #3: 1 Performed By: #### L 500.4050, L100.0100 #### [facility] [address] [place], [address] Chloride [Moles/Vol] 109 mmol/L High 98-107 [facility] Comment on above: Order Comment: 'TROP ' Serial specimen #1, #2 or #3: 1 Performed By: #### L 500.4050, L100.0100 #### [facility] [address] [place], [address] CO2 [Moles/Vol] 26.0 mmol/L Normal 21.0-32.0 [facility] Comment on above: Order Comment: 'TROP ' Serial specimen #1, #2 or #3: 1 Performed By: #### L 500.4050, L100.0100 #### [facility] [address] [place], [address] Creatinine [Mass/Vol] 0.89 mg/dL Normal 0.55-1.02 [facility] Comment on above: Order Comment: 'TROP ' Serial specimen #1, #2 or #3: 1 Result Comment: The validity of the calculated GFR GFRAA in patients over 70 years has not been determined. Clinical correlation is essential. Performed By: #### L 500.4050, L100.0100 #### [facility] [address] [place], [address] ECRCL 98.98 ml/min Normal [facility] Comment on above: Order Comment: 'TROP ' Serial specimen #1, #2 or #3: 1 Performed By: #### L 500.4050, L100.0100 #### [facility] [address] [place], [address] EST GFR - AA 85 mL/min Normal >60 [facility] Comment on above: Order Comment: 'TROP ' Serial specimen #1, #2 or #3: 1 Result Comment: Afri can British GFR Calc Performed By: #### L 500.4050, L100.0100 #### [facility] [address] [place], [address] GAP 5 Normal 5-15 [facility] Comment on above: Order Comment: 'TROP ' Serial specimen #1, #2 or #3: 1 Performed By: #### L 500.4050, L100.0100 #### [facility] [address] [place], [address] GFR/1.73 sq M.predicted among non-blacks MDRD (S/P/Bld) [Vol rate/Area] 70 mL/min/{1.73_m2} Normal >60 [facility] Comment on above: Order Comment: 'TROP ' Serial specimen #1, #2 or #3: 1 Result Comment: Non- GFR Calc Performed By: #### L 500.4050, L100.0100 #### [facility] [address] [place], [address] Globulin (S) [Mass/Vol] 4.3 g/dL High 2.2-4.2 [facility] Comment on above: Order Comment: 'TROP ' Serial specimen #1, #2 or #3: 1 Performed By: #### L 500.4050, L100.0100 #### [facility] [address] [place], [address] Glucose [Mass/Vol] 98 mg/dL Normal 74-106 [facility] Comment on above: Order Comment: 'TROP ' Serial specimen #1, #2 or #3: 1 Performed By: #### L 500.4050, L100.0100 #### [facility] [address] [place], [address] Potassium [Moles/Vol] 3.8 mmol/L Normal 3.5-5.1 [facility] Comment on above: Order Comment: 'TROP ' Serial specimen #1, #2 or #3: 1 Performed By: #### L 500.4050, L100.0100 #### [facility] [address] [place], [address] Sodium [Moles/Vol] 140 mmol/L Normal 136-145 [facility] Comment on above: Order Comment: 'TROP ' Serial specimen #1, #2 or #3: 1 Performed By: #### L 500.4050, L100.0100 #### [facility] [address] [place], [address] T PROT 7.9 g/dL Normal 6.4-8.2 [facility] Comment on above: Order Comment: 'TROP ' Serial specimen #1, #2 or #3: 1 Performed By: #### L 500.4050, L100.0100 #### [facility] [address] [place], [address] Urea nitrogen [Mass/Vol] 17 mg/dL Normal 7-18 [facility] Comment on above: Order Comment: 'TROP ' Serial specimen #1, #2 or #3: 1 Performed By: #### L 500.4050, L100.0100 #### [facility] [address] [place], [address] Emergency Department Summary on 06-09-2024 Emergency Department Summary [facility] Medical Records Department [address] [place] [address] Emergency Department Summary 06/09/24 MR#: [id number] Acct: [id number] Name: LING DIAS Rep #: [id number] : 1970 54 From: Marquise Brown DO PCP: Charlee Humphries, ENGINEERING AIDE-C Status:ADM IN [id number] History of Present Illness Chief Complaint: Abd Pain Narrative Narrative: Chief complaint and HPI: Abdominal pain. 54-year-old female with history of HTN, hypothyroidism, GERD presents for evaluation of right upper quadrant abdominal pain. Onset of symptoms was this morning. Patient states she is currently on antibiotics for a sinus infection, Augmentin. She states the symptoms are improving. She describes her right upper quadrant abdominal pain as crampy. Different from her GERD. She denies any fever, chills, shortness of breath, chest pain, vomiting, diarrhea, constipation, dysuria, hematuria. Patient states she has some slight nausea. No history of gallbladder disease. Previous history of C-sections. Denies any daily alcohol use. Review of systems: See HPI Medications: As listed on the chart Allergies: As listed on the chart PFSH: Per chart Vital signs: As listed on the chart. Reviewed. Physical exam: Gen: A O x3, NAD Head: Normocephalic, atraumatic Eyes: No sclera icterus, conjunctiva clear ENT: Moist mucous membranes Neck: Trachea midline, No JVD CV: RRR, no murmurs, no peripheral edema Resp: Lungs CTA BL, no w/r/c GI: Abd soft, non-distended, tender to palpation in the right upper quadrant but negative Cruz sign, tender to palpation in the epigastrium, no r/r : No CVA tenderness Musc: Full ROM, no deformity Skin: Warm, dry Neuro: Alert, oriented, grossly intact, sensation intact Psych: Cooperative, appropriate mood and affect PFSH PFSH Medical History (Updated 06/09/24 @ 17:39 by Cielo Alvarez) Anxiety Depression Thyroid disease Sinus infection GERD (gastroesophageal reflux disease) HTN (hypertension) Home Medications ???Medication ???Instructions ???Recorded ???Last Taken ???Type levothyroxine 25 mcg tablet 50 mcg PO DAILY thyroid 04/19/20 Unknown History amlodipine 5 mg tablet 5 mg PO DAILY bp 06/09/24 Unknown History amoxicillin 875 mg-potassium 1 tab PO Q12H sinus infection 06/09/24 06/09/24 09:00 History clavulanate 125 mg tablet buspirone 5 mg tablet 10 mg PO QHS PRN sleep 06/09/24 Unknown History guaifenesin 600 mg tablet, 600 mg PO BID sinus infection 06/09/24 Unknown History extended release 12 hr losartan 100 mg tablet 100 mg PO DAILY bp 06/09/24 Unknown History meclizine 25 mg chewable tablet 25 mg PO DAILY PRN dizziness 06/09/24 Unknown History (Antivert) omeprazole 40 mg capsule,delayed 40 mg PO DAILY gerd 06/09/24 Unknown History release sertraline 25 mg tablet 50 mg PO DAILY mood 06/09/24 Unknown History venlafaxine 150 mg 150 mg PO DAILY mood 06/09/24 Unknown History capsule,extended release 24 hr Allergy/AdvReac Type Severity Reaction Status Date / Time No Known Allergies Allergy Verified 06/09/24 11:59 Family History (Updated 11/21/17 @ 11:39 by Marta Carter) Other Breast cancer Surgical History Hx of section Social History (Updated 11/21/17 @ 12:03 by Millicent Morris NP, ENGINEERING AIDE-C) Smoking Status: Never smoker alcohol intake: never EXAM Physical Exam Const Vital Signs: 06/09/24 11:59 06/09/24 13:58 06/09/24 15:00 Temperature 98.0 F Temperature Source Oral Pulse Rate 106 H 85 80 Respiratory Rate 18 19 H 14 Blood Pressure 149/86 H 145/97 H 132/82 H Blood Pressure Mean 107 113 98 Pulse Ox 99 98 96 Oxygen Delivery Method Room Air Room Air Room Air 06/09/24 16:41 Temperature 98.4 F Temperature Source Pulse Rate 78 Respiratory Rate 12 Blood Pressure 130/82 H Blood Pressure Mean 98 Pulse Ox 100 Oxygen Delivery Method MDM MDM MDM Narrative Medical decision making narrative: 54-year-old female presents for evaluation of right upper quadrant abdominal pain. Differential diagnosis includes but is not limited to cholelithiasis, cholecystitis, GERD, gastritis, PUD, pancreatitis. Suspect less likely UTI or ACS. Abdominal pain workup ordered including ultrasound of the right upper quadrant. Morphine, Zofran, Pepcid ordered for symptoms. EKG reviewed below. CBC without leukocytosis or anemia. CMP without DAVID. Patient has mild transaminitis with AST of 77 and ALT of 73. Alk phos is elevated at 156. Patient's lipase is 8593. Findings consistent with pancreatitis. IV fluids ordered. Patient denies alcohol use and therefore suspect less likely alcohol pancreatitis. Concern is for possible choledocholithiasis as a cause for pancreat (more content not included)... Normal [facility] Epithelial cells.squamous LM Ql (Urine sed)Ordered By: Marquise Brown on 06-09-2024 Epithelial cells.squamous LM.HPF (Urine sed) [#/Area] 0 /[HPF] 5-10 [facility] Gallbladderon 06-09-2024 Gallbladder [facility] Imaging Services [address] [place] [address] [id number] Gallbladder MR#: [id number] Acct: [id number] Name: LING DIAS Rep #: [id number] : 1970 F 54 From: Tomasz Salgado MD PCP: Charlee Humphries, CATIA-C Status: REG ER Study: Gallbladder Date of Exam: 06/09/24 Exam# [id number] Ordering Dr: Marquise Brown DO [id number] EXAM: US ABDOMEN LIMITED, GALLBLADDER CLINICAL INDICATION: PAIN TECHNIQUE: Real-time ultrasound of the right upper quadrant with image documentation. COMPARISON: No relevant prior studies available. FINDINGS: GALLBLADDER: Normal. No shadowing gallstone. No gallbladder wall thickening is demonstrated. No pericholecystic fluid. Negative sonographic Cruz''s sign. COMMON BILE DUCT: Unremarkable as visualized. The proximal common bile duct is normal size. PANCREAS: Pancreas is obscured by overlying bowel gas. US/Gallbladder IMPRESSION: No acute findings in the right upper quadrant. Electronically Signed: Tomasz Salgado MD at 15:52 EST Reading Location ID and State: [address] [place] [address] Tel , Service support , CC: ENGINEERING AIDE-C Charlee Humphries; Dr. Marquise Brown DO Product Safety Expert: Signed Normal [facility] Glucose Ql (U)Ordered By: Adithya Brown on 06-09-2024 Urine Glucose (UA) Normal mg/dl Normal [facility] H AND P Exam - Hospitaliston 06-09-2024 H&P Exam - Hospitalist [facility] Medical Records Department [address] [place] [address] H P Exam - Hospitalist 06/09/24 1620 MR#: [id number] Acct: [id number] Name: LING DIAS Rep #: [id number] : 1970 54 From: Kadie Ta MD PCP: NOAH Lim Status:ADM IN [place] [facility] [id number] HPI - General General Date of Admission: 06/09/24 Date of Service: 06/09/24 Chief Complaint: Acute abdominal pain HPI Narrative LING DIAS, is a 54 F with past medical history of HTN, hypothyroidism, GERD who presents to the ED with concerns regarding abdominal pain The pain started this morning, more in the right upper quadrant not radiating to the back, at the initiation it 8-10/10 in intensity, no associated nausea or vomiting. Does not smoke, no history of alcohol use, no recent medication changes. Her home medications include buspirone, hydrochlorothiazide, levothyroxine, lisinopril, sertraline, venlafaxine. She had a similar episode 1 year back, she feels it she was diagnosed with pancreatitis at the time too At time of presentation BP 132/82, respiratory rate 14, oxygen 96 WBC 5.7, hemoglobin 14, platelet 216, chloride 109, AST 77, ALT 73, alk phos 156, lipase 02/14/1990 urine protein 15 leukoesterase positive WBCs 0-5 Ultrasound abdomen showed no gallstone no gallbladder wall thickening normal scan. In the ED she received famotidine, morphine sulfate, ondansetron, 1 L of fluid. [facility] Medical History (Updated 06/09/24 @ 12:06 by Dolly Chávez) Thyroid disease Sinus infection GERD (gastroesophageal reflux disease) HTN (hypertension) Home Medications ???Medication ???Instructions ???Recorded ???Last Taken ???Type Hydrochlorothiazide 0 mg PO DAILY #30 caps 04/19/20 Unknown Rx buspirone 5 mg tablet 10 mg (2 x 5 mg) PO TID #90 tabs 04/19/20 Unknown Rx hydrochlorothiazide 12.5 mg capsule 12.5 mg PO DAILY #30 caps 04/19/20 Unknown Rx levothyroxine 25 mcg tablet 25 mcg PO DAILY 04/19/20 Unknown History lisinopril 5 mg tablet 5 mg PO DAILY 04/19/20 Unknown History sertraline 25 mg tablet 25 mg PO DAILY 04/19/20 Unknown History sertraline 25 mg tablet 25 mg PO DAILY #30 tabs 04/19/20 Unknown Rx venlafaxine 25 mg tablet 25 mg PO DAILY 04/19/20 Unknown History Allergy/AdvReac Type Severity Reaction Status Date / Time No Known Allergies Allergy Verified 06/09/24 11:59 Family History (Updated 11/21/17 @ 11:39 by Marta Carter) Other Breast cancer Surgical History Hx of section Social History (Updated 11/21/17 @ 12:03 by Millicent Morris NP, ENGINEERING AIDE-C) Smoking Status: Smoker, status unknown alcohol intake: never Vital Signs Vital Signs Vital Signs: 06/09/24 11:59 06/09/24 13:58 06/09/24 15:00 Temperature 98.0 F Temperature Source Oral Pulse Rate 106 H 85 80 Respiratory Rate 18 19 H 14 Blood Pressure 149/86 H 145/97 H 132/82 H Blood Pressure Mean 107 113 98 Pulse Ox 99 98 96 Oxygen Delivery Method Room Air Room Air Room Air Weight Weight: 261 lb 6.504 oz Body Mass Index (BMI) 39.7 Physical Exam Const alert and oriented x3 HEENT normocephalic Neck no lymphadenopathy Resp normal respiratory effort Cardio regular rate and regular rhythm GI normal to inspection, nondistended, normoactive bowel sounds, soft to palpation, non-tender and non- distended GI Narrative: Examination done after morphine was provided in the ED Extremity normal to inspection Neuro oriented x3 Psych affect normal Results Medical Records Data Attestation: I reviewed the patient's medical records Lab / Micro Data Attestation: I reviewed the patient's lab results. 06/09/24 12:11 06/09/24 12:11 Labs: Laboratory Results - last 24 hr 06/09/24 12:11: WBC 5.7, RBC 5.19, Hgb 14.0, Hct 43.2, MCV 83.2, MCH 27.0, MCHC 32.4, RDW Std Deviation 41.7, RDW Coeff of Kristyn 13.8, Plt Count 216, MPV 9.8, Immature Gran % (Auto) 0.300, Neut % (Auto) 72.7 H, Lymph % (Auto) 21.4, Coles % (Auto) 5.1, Eos % (Auto) 0.0, Baso % (Auto) 0.5, Absolute Neuts (auto) 4.2, Absolute Lymphs (auto) 1.23, Nucleated RBC % 0, Sodium 140, Potassium 3.8, C hloride 109 H, Carbon Dioxide 26.0, Anion Gap 5, BUN 17, Creatinine 0.89, Estim Creat Clear Calc 98.98, Est GFR (MDRD) Af Amer 85, Est GFR (MDRD) Non-Af 70, BUN/Creatinine Ratio 19.0, Glucose 98, Calcium 8.7, Total Bilirubin 0.80, AST 77 H, ALT 73 H, Alkaline Phosphatase 156 H, Troponin I High Sens 3, Total Protein 7.9, Albumin 3.6, Globulin 4.3 H, Albumin/Globulin Ratio 0.8 L, Lipase 8593 H 06/09/24 14:47: Urine Color Yellow, Urine Clarity Clear, Urine pH 6.0, Ur Specific Byron 1.020, U rine Protein 15 H, Urine Glucose (UA) Normal, Urine Ketones Negative, Urine Occult Blood Negative, Urine Nitrite Ne (more content not included)... Normal [facility] Ketones Test strip Ql (U)Ord ered By: Marquise Brown on 06-09-2024 Ketones Ql (U) Negative Negative [facility] L501.4020on 06-09-2024 TROPONIN-I HS 3 pg/mL Normal 3.0-54.0 [facility] Comment on above: Order Comment: 'TROP ' Serial specimen #1, #2 or #3: 1 Result Comment: Plea se Note: New Test Units and Gender Specific Reference Ranges. For more information see Policy Stat Procedure Brandon High Sensitivity Troponin (TNIH) and attachments. Performed By: #### L 500.4050, L100.0100 #### [facility] [address] [place], [address] Lipaseon 06-09-2024 Lipase [Catalytic activity/Vol] 8593 U/L High 13-75 [facility] Comment on above: Order Comment: 'TROP ' Serial specimen #1, #2 or #3: 1 Result Comment: Plea se note: LIPASE revised reference range effective 22. New Lipase methodology. Expected to produce lower values than the previous assay method. NEW Reference Range: 13 - 75 U/L Performed By: #### L 500.4050, L100.0100 #### [facility] [address] [place], [address] Lipase measurementOrdered By : Marquise Brown on 06-09-2024 Lipase [Catalytic activity/Vol] 8593 U/L High 13-75 [facility] Comment on above: Please note:LIPASE r evised reference range effective 22. New Lipase methodology. Expected to produce lower values than the previous assay method. NEW Reference Range: 13 - 75 U/L Microscopic analysis of urin e for red blood cells (RBC)Ordered By: Marquise Brown on 06-09-2024 Urine RBC 0 SEEN /hpf 0-5 [facility] Mucus LM Ql (Urine sed)Order ed By: Marquise Brown on 06-09-2024 Mucus Ql (Urine sed) 0 SEEN /hpf [facility] Nitrite Test strip Ql (U)Ord ered By: [facility] on 06-09-2024 Nitrite Ql (U) Negative Negative [facility] Protein Test strip Ql (U)Ord ered By: Marquise Shellt on 06-09-2024 Protein Ql (U) 15 mg/dl High Negative [facility] Troponin IOrdered By: Marquisehelen GuthriemahendraAdore on 06-09-2024 Troponin I High Sensitivity 3 pg/mL 3.0-54.0 [facility] Comment on above: Please Note: New Nae t Units and Gender Specific Reference Ranges. For more information see Policy Stat Procedure Brandon High Sensitivity Troponin (TNIH) and attachments. Urinalysis, Completeon 06-09 EPI,SQUAMOUS 0-5 SEEN Normal 5-10 [facility] Comment on above: Order Comment: CLEAN CATCH Performed By: #### L 500.4050, L100.0100 #### [facility] [address] [place], [address] BACTERIA 0 SEEN Normal None Seen [facility] Comment on above: Order Comment: CLEAN CATCH Performed By: #### L 500.4050, L100.0100 #### [facility] [address] [place], [address] Mucus Ql (Urine sed) 0 SEEN Normal [facility] Comment on above: Order Comment: CLEAN CATCH Performed By: #### L 500.4050, L100.0100 #### [facility] [address] [place], [address] RBC 0 SEEN Normal 0-5 [facility] Comment on above: Order Comment: CLEAN CATCH Performed By: #### L 500.4050, L100.0100 #### [facility] [address] [place], [address] WBC 0 SEEN Normal 0-5 [facility] Comment on above: Order Comment: CLEAN CATCH Performed By: #### L 500.4050, L100.0100 #### [facility] [place], [address] Urine blood detectionOrdered By: Marquise Brown on 06-09-2024 Urine Occult Blood Negative Negative [facility] Urine clarityOrdered By: Jame Brown on 06-09-2024 Clarity (U) Clear Clear [facility] Urine color determinationOrd ered By: Marquise Brown on 06-09-2024 Color (U) Yellow Yellow [facility] Urine leukocyte esterase det ection by dipstickOrdered By: Marquise Brown on 06-09-2024 Leukocyte esterase Test strip Ql (U) 25 /ul High Negative [facility] Urine pHOrdered By: Marquise Pabon on 06-09-2024 pH (U) 6.0 [pH] 5.0 - 8.0 [facility] Urine sediment bacteria coun t by microscopy (number/high power field)Ordered By: Marquise Brown on 06-09-2024 Bacteria LM.HPF (Urine sed) [#/Area] 0 /[HPF] None Seen [facility] Urine specific gravity measu rementOrdered By: Marquise Brown on 06-09-2024 Specific gravity (U) [Rel density] 1.020 1.002-1.030 [facility] Urobilinogen Ql (U)Ordered B y: Marquise Brown on 06-09-2024 Urobilinogen (U) [Mass/Vol] 1 mg/dL High Normal [facility] White blood cell countOrdere d By: Marquise Brown on 06-09-2024 Urine WBC 0 SEEN /hpf 0-5 [facility] Bacteria Ur Culton 4 Bacteria identified Cx Nom (U) CULTURE, URINE: Mixed microbiota, including predominantly: ORGANISM ID: 1 50,000-<100,000 CFU/ml Escherichia coli ORGANISM ID: 1 (ESCHERICHIA COLI) ------ ANTIBIOTIC INTERPRETATION JORGE A STATUS REFERENCE RANGE ------ Ampicillin S <=2 F Susceptible <=8 , Intermediate >8 , Resistant >16 Cefazolin S <=4 F Susceptible 0-16 , Intermediate <0 or >16 , Resistant >16 For uncomplicated urinary tract infections, cefazolin results can be used to predict susceptibility or resistance to cephalexin. Ceftriaxone S <=1 F Susceptible <=1 , Intermediate >1 , Resistant >=4 Cefepime S <=1 F Susceptible <=2 , Susceptible-Dose Dependent >2 , Resistant >=16 Ertapenem S <=0.5 F Susceptible <=0.5 , Intermediate >.5 , Resistant >1 Meropenem S <=0.25 F Susceptible <=1 , Intermediate >1 , Resistant >2 Ampicillin/Sulbact S <=2 F Susceptible <=8 , Intermediate >8 , Resistant >16 Piperacillin/Tazobac S <=4 F Susceptible <16 , Susceptible-Dose Dependent >=16 , Resistant >=32 Gentamicin S <=1 F Susceptible <=2 , Intermediate >2 , Resistant >=8 Tobramycin S <=1 F Susceptible <4 , Intermediate >=4 , Resistant >=8 Trimeth sulfameth S <=20 F Susceptible <=40 , Resistant >40 Ciprofloxacin S <=0.25 F Susceptible <0.5 , Intermediate >=.5 , Resistant >=1 Nitrofurantoin S <=16 F Susceptible <=32 , Intermediate >32 , Resistant >64 Abnormal [facility] Comment on above: Performed By: #### 6 30-4 ####[facility] [id number] [address] [place] CNOVon 05-23-2024 CNOV Office Visit (UCWSTR ) LING DIAS ([id number]) 1970 F Date Time Provider Department 05/23/24 5:00 PM MIN HAMEED [facility] During your visit today, we recorded the following information about you: Temperature Pulse Respiration Blood pressure 97.5 degrees 95/minute 20/minute 140/92 Weight 121.9 kg Min Hameed APRN.DOPE POURER 05/23/2024 5:01 PM Signed Subjective HPI Nontoxic-appearing female presents urgent care chief complaint possible UTI. Duration of symptoms 1 day. Associated symptoms dysuria frequency urgency. History of UTIs this feels similar. Was seen at the end of April. Urine culture mixed microbes. Presents today for evaluation. Denies OTC medications. Denies any urological abnormalities. Denies any fevers nausea vomiting abdominal pain vaginal discharge itching or flank pain. Past medical history prescription medications allergies reviewed. .Patient presents with: Urinary Problem: Frequency, urgency, burning started this morning PAST MEDICAL HISTORY Diagnosis Date COVID-19 De Quervain's disease (tenosynovitis) Depression Dermatitis Elevated LFTs CHAYO (generalized anxiety disorder) Gallbladder sludge GERD (gastroesophageal reflux disease) History of endometriosis Hyperlipidemia Hypertension Hypothyroidism Increased BMI Insomnia Pars defect of lumbar spine Renal insufficiency Seasonal allergies Vitamin D deficiency PAST SURGICAL HISTORY Procedure Laterality Date DELIVERY ONLY , low cervical, X-2 ESSURE 05/13/2010 Dr Yoder HYSTEROSCOPY, DIAGNOSTIC (SEPARATE 05/18/2019 INSERT INTRAUTERINE DEVICE 03/13/2005 Mirena PAST SURGICAL HISTORY OF BONE RECONSTRUCTION RT. FOOT PAST SURGICAL HISTORY OF 07/08/2006 Bone reconstruction on Left foot. ALLERGIES Patient has no known allergies. MEDICATIONS cholecalciferol, Vitamin D3, (VITAMIN D3) 1,250 mcg (50,000 unit) cap capsule Take 50,000 Units by mouth once every month. acetaminophen 325 mg cap Take 2 capsules by mouth every 6 hours as needed for pain. amLODIPine (NORVASC) 5 mg tablet Take 5 mg by mouth once daily. sertraline (ZOLOFT) 50 mg tablet Take 50 mg by mouth once daily. losartan (COZAAR) 100 mg tablet Take 100 mg by mouth once daily. omeprazole (PRILOSEC) 40 mg capsule Take 40 mg by mouth once daily. levothyroxine (LEVOXYL) 50 mcg tablet Take 50 mcg by mouth daily before breakfast. busPIRone (BUSPAR) 10 mg tablet Take 10 mg by mouth three times a day as needed (anxiety). meclizine (ANTIVERT) 25 mg tab Take 25 mg by mouth three times a day as needed (vertigo). venlafaxine ER (EFFEXOR XR) 150 mg 24 hr capsule Take 1 capsule by mouth once daily. FAMILY HISTORY Problem Relation Age of Onset Breast Cancer Mother Dx at 42 Hypertension Mother Heart Father open heart surgery Hypertension Father Alzheimer's Disease Father Hypertension Brother X-2 Hypertension Maternal Aunt Breast Cancer Maternal Aunt 78 Social History Tobacco Use Smoking status: Never Smokeless tobacco: Never Substance Use Topics Alcohol use: Yes Comment: very rarely Drug use: No BP 140/92 Pulse 95 Temp 36.4 ?C (97.5 ?F) Resp 20 Wt 121.9 kg (268 lb 11.9 oz) LMP (LMP Unknown) SpO2 98% BMI 40.86 kg/m? Review of Systems Constitutional: Negative for chills, fever and malaise/fatigue. Cardiovascular: Negative for chest pain. Gastrointestinal: Negative for abdominal pain, constipation, diarrhea, nausea and vomiting. Genitourinary: Positive for dysuria, frequency and urgency. Negative for flank pain and hematuria. Musculoskeletal: Negative for myalgias. Objective Physical Exam Vitals and nursing note reviewed. Constitutional: General: She is not in acute distress. Appearance: She is not diaphoretic. HENT: Head: Jaw: No trismus. Right Ear: Hearing normal. No decreased hearing noted. No drainage, swelling or tenderness. Tympanic membrane is not perforated, erythematous or bulging. Left Ear: Hearing normal. No decreased hearing noted. No drainage, swelling or tenderness. Tympanic membrane is not perforated, erythematous or bulging. Mouth/Throat: Pharynx: Uvula midline. No uvula swelling. Tonsils: No tonsillar abscesses. Cardiovascular: Rate and Rhythm: Normal rate and regular rhythm. Pulses: Normal pulses. Pulmonary: Effort: Pulmonary effort is normal. No respiratory distress. Breath sounds: Normal breath sounds. Chest: Chest wall: No tenderness. Abdominal: General: Bowel sounds are normal. There is no distension. Palpations: Abdomen is soft. Abdomen is not rigid. Tenderness: There is no abdominal tenderness. There is no right CVA tenderness, left CVA tenderness, guarding or rebound. Negative signs include Cruz's sign and McBurney's sign. Musculoskeletal: General: No tenderness. Lymphadenopathy: Head: (more content not included)... Normal [facility] UA DIP, URINE (POC)on 2023 BILIRUBIN UA (POCT) Negative Negative [facility] CLARITY UA (POCT) Cloudy [facility] COLOR UA (POCT) Yellow [facility] GLUCOSE UA (POCT) Negative Negative mg/dL [facility] Hemoglobin Ql (U) Small Abnormal Negative [facility] Interpretation and review of laboratory results Abnormal [facility] KETONE UA (POCT) Negative Negative mg/dL [facility] LEUKOCYTES UA (POCT) Moderate Abnormal Negative [facility] NITRITE UA (POCT) Positive Abnormal Negative [facility] PH UA (POCT) 5.5 4.5 - 8.0 [facility] Protein Ql (U) Negative Negative mg/dL [facility] SPECIFIC GRAVITY UA (POCT) 1.025 1 .005 - 1.030 [facility] UROBILINOGEN UA (POCT) 0.2 Kriss l E.U./dL [facility] Location:[address], [place], [address] [facility] 05-04-2024 CNPN Telephone (UCWSTR) LING DIAS ([id number]) 1970 F Date Time Provider Department 05/04/24 [facility] During your visit today, we recorded the following information about you: Maximino Julian MD 05/04/2024 7:11 AM Signed Urine culture did not show a clear infection. Finish antibiotic and follow up with PCP, urology, or CUSTOMER ACCOUNTS ADVISOR for recheck. Brooke Griggs MA 05/04/2024 7:24 AM Signed Patient given results and verbalized understanding of instructions given. Brooke Griggs MA Allergies As of Date: 05/04/2024 (No Known Allergies) Date Reviewed: 05/02/2024 Reviewed by: Brooke Griggs MA - Fully Assessed Reason for Visit: Results [95] Cmt: Urine Cx mixed Prescriptions as of 05/04/2024 - nitrofurantoin monohydrate and macrocrystal (MACROBID) 100 mg capsule Take 1 capsule by mouth two times a day for 5 days. - cholecalciferol, Vitamin D3, (VITAMIN D3) 1,250 mcg (50,000 unit) cap capsule Take 50,000 Units by mouth once every month. - acetaminophen 325 mg cap Take 2 capsules by mouth every 6 hours as needed for pain. - amLODIPine (NORVASC) 5 mg tablet Take 5 mg by mouth once daily. - sertraline (ZOLOFT) 50 mg tablet Take 50 mg by mouth once daily. - losartan (COZAAR) 100 mg tablet Take 100 mg by mouth once daily. - omeprazole (PRILOSEC) 40 mg capsule Take 40 mg by mouth once daily. - levothyroxine (LEVOXYL) 50 mcg tablet Take 50 mcg by mouth daily before breakfast. - busPIRone (BUSPAR) 10 mg tablet Take 10 mg by mouth three times a day as needed (anxiety). - meclizine (ANTIVERT) 25 mg tab Take 25 mg by mouth three times a day as needed (vertigo). - venlafaxine ER (EFFEXOR XR) 150 mg 24 hr capsule Take 1 capsule by mouth once daily. Problem List As Of Date 05/04/2024 Noted Resolved Family history of breast cancer in mother [Z80.*09/07/2015 Encounter Status:Closed by BROOKE GRIGGS on 05/04/24 Normal [facility] Bacteria Ur Culton 10-21-202 4 Bacteria identified Cx Nom (U) ORGANISM ID: 1 >=100,000 CFU/ml Mixed microbiota No further workup. Mixed microbiota can be due to???urine???contamin ation with skin bacteria at time of collection or presence of a long-term urinary catheter. If a new culture is needed, please consider re-education of the patient on proper midstream collection technique or straight catheterization for???urine???collect ion. Normal [facility] Comment on above: Performed By: #### 6 30-4 ####[facility] LABCLIA [id number] [address] OF [facility] CNOVon 05-02-2024 CNOV Office Visit (UCWSTR ) LING DIAS ([id number]) 1970 F Date Time Provider Department 05/02/24 5:00 PM FABRICIO GARCIA [facility] During your visit today, we recorded the following information about you: Temperature Pulse Respiration Blood pressure 98 degrees 104/minute 16/minute 122/70 Weight 122.2 kg Fabricio Garcia PA 05/02/2024 4:47 PM Signed This note was created using [employer]. Subjective Ling Dias is a 53 year old female. HPI 53-year-old female presents for UTI symptoms. Patient started getting burning with urination today. No blood in the urine. No urgency. She has a little bit frequency. No abdominal pain, back pain, fevers, vomiting. She denies any vaginal discharge or itching. She has had UTIs in the past, her last 1 was about 5 months ago. PAST MEDICAL HISTORY Diagnosis Date COVID-19 De Quervain's disease (tenosynovitis) Depression Dermatitis Elevated LFTs CHAYO (generalized anxiety disorder) Gallbladder sludge GERD (gastroesophageal reflux disease) History of endometriosis Hyperlipidemia Hypertension Hypothyroidism Increased BMI Insomnia Pars defect of lumbar spine Renal insufficiency Seasonal allergies Vitamin D deficiency PAST SURGICAL HISTORY Procedure Laterality Date DELIVERY ONLY , low cervical, X-2 ESSURE 05/13/2010 Dr Yoder HYSTEROSCOPY, DIAGNOSTIC (SEPARATE 05/18/2019 INSERT INTRAUTERINE DEVICE 03/13/2005 Mirena PAST SURGICAL HISTORY OF BONE RECONSTRUCTION RT. FOOT PAST SURGICAL HISTORY OF 07/08/2006 Bone reconstruction on Left foot. ALLERGIES Patient has no known allergies. MEDICATIONS cholecalciferol, Vitamin D3, (VITAMIN D3) 1,250 mcg (50,000 unit) cap capsule Take 50,000 Units by mouth once every month. acetaminophen 325 mg cap Take 2 capsules by mouth every 6 hours as needed for pain. amLODIPine (NORVASC) 5 mg tablet Take 5 mg by mouth once daily. sertraline (ZOLOFT) 50 mg tablet Take 50 mg by mouth once daily. losartan (COZAAR) 100 mg tablet Take 100 mg by mouth once daily. omeprazole (PRILOSEC) 40 mg capsule Take 40 mg by mouth once daily. levothyroxine (LEVOXYL) 50 mcg tablet Take 50 mcg by mouth daily before breakfast. busPIRone (BUSPAR) 10 mg tablet Take 10 mg by mouth three times a day as needed (anxiety). meclizine (ANTIVERT) 25 mg tab Take 25 mg by mouth three times a day as needed (vertigo). venlafaxine ER (EFFEXOR XR) 150 mg 24 hr capsule Take 1 capsule by mouth once daily. nitrofurantoin monohydrate and macrocrystal (MACROBID) 100 mg capsule Take 1 capsule by mouth two times a day for 5 days. FAMILY HISTORY Problem Relation Age of Onset Breast Cancer Mother Dx at 42 Hypertension Mother Heart Father open heart surgery Hypertension Father Alzheimer's Disease Father Hypertension Brother X-2 Hypertension Maternal Aunt Breast Cancer Maternal Aunt 78 Social History Tobacco Use Smoking status: Never Smokeless tobacco: Never Substance Use Topics Alcohol use: Yes Comment: very rarely Drug use: No Review of Systems Constitutional: Negative for chills and fever. HENT: Negative for congestion, ear pain and sore throat. Respiratory: Negative for cough and shortness of breath. Cardiovascular: Negative for chest pain. Gastrointestinal: Negative for abdominal pain, diarrhea and vomiting. Genitourinary: Positive for dysuria and frequency. Negative for hematuria and urgency. Objective BP 122/70 Pulse 104 Temp 36.7 ?C (98 ?F) Resp 16 Wt 122.2 kg (269 lb 6.4 oz) LMP (LMP Unknown) SpO2 98% BMI 40.96 kg/m? Physical Exam Vitals and nursing note reviewed. Constitutional: General: She is not in acute distress. Appearance: Normal appearance. She is not toxic-appearing. HENT: Mouth/Throat: Mouth: Mucous membranes are moist. Eyes: Conjunctiva/sclera: Conjunctivae normal. Cardiovascular: Rate and Rhythm: Normal rate and regular rhythm. Pulmonary: Effort: Pulmonary effort is normal. Breath sounds: Normal breath sounds. Abdominal: General: Abdomen is flat. Palpations: Abdomen is soft. Tenderness: There is no abdominal tenderness. There is no right CVA tenderness, left CVA tenderness, guarding or rebound. Skin: General: Skin is warm and dry. Neurological: Mental Status: She is alert. Assessment and Plan ASSESSMENT/PLAN: 1. Acute UTI - ICD9: 599.0, ICD10: N39.0 (primary diagnosis) acute - UA positive for michell esterase, hematuria, and proteinuria - Send urine for culture -Reviewed prior urine culture from November, grew E. coli. Susceptible to Macrobid - Begin treatment with Macrobid 100 mg BID for 5 days - Patient education for prevention given 2. Burning with urination - ICD9: 788.1, ICD10: R30.0 - UA DIP, URINE (POC) - URINE CULTURE Diagnosis and treatment plan were discussed and questions were answe (more content not included)... Normal [facility] UA DIP, URINE (POC)on 2023 BILIRUBIN UA (POCT) Small Abnormal Negative [facility] CLARITY UA (POCT) Clear [facility] COLOR UA (POCT) Yellow [facility] GLUCOSE UA (POCT) Negative Negative mg/dL [facility] Hemoglobin Ql (U) Small Abnormal Negative [facility] Interpretation and review of laboratory results Abnormal [facility] KETONE UA (POCT) Negative Negative mg/dL [facility] LEUKOCYTES UA (POCT) Small Abnormal Negative [facility] NITRITE UA (POCT) Negative Negative [facility] PH UA (POCT) 5.5 4.5 - 8.0 [facility] Protein Ql (U) Trace Abnormal Negative mg/dL [facility] SPECIFIC GRAVITY UA (POCT) >=1.030 1 .005 - 1.030 [facility] UROBILINOGEN UA (POCT) 0.2 Kriss l E.U./dL [facility] Location:[facility], [address] [place] [address], [place], [address] [facility] CNOVon 03-29-2024 CNOV Office Visit (GENSWS ) LARISSALING Caitlin ([id number]) 1970 F Date Time Provider Department 03/29/24 10:00 AM RADHA NAVARRO During your visit today, we recorded the following information about you: Temperature Pulse Blood pressure Weight 97 degrees 91/minute 146/94 123.5 kg Height 1.727 m Radha Navarro APRN.DOPE POURER 03/29/2024 10:45 AM Signed HISTORY AND PHYSICAL Ling L Larissa : 1970 REFERRING PHYSICIAN: Charlee Humphries, WEARING APPAREL ASSEMBLER [address] [facility] [address] CHIEF COMPLAINT: Patient presents with: Consult: Colonoscopy consultation HPI: Ling is a 53 year old female referred for endoscopy. Ling notes due for colon cancer screening. Ling denies abdominal pain.. Ling denies diarrhea. Ling denies constipation. Ling denies a change in bowel habits. Ling denies melena. Ling denies bright red blood per rectum. Ling denies hemorrhoids. Ling notes heartburn. Well controlled with Prilosec daily Ling denies dysphagia. Ling denies a history of ulcers/ peptic ulcer disease. Denies family history of colon issues. Ling has not undergone prior endoscopy. Current Outpatient Medications Medication Sig cholecalciferol, Vitamin D3, (VITAMIN D3) 1,250 mcg (50,000 unit) cap capsule Take 50,000 Units by mouth once every month. acetaminophen 325 mg cap Take 2 capsules by mouth every 6 hours as needed for pain. amLODIPine (NORVASC) 5 mg tablet Take 5 mg by mouth once daily. sertraline (ZOLOFT) 50 mg tablet Take 50 mg by mouth once daily. losartan (COZAAR) 100 mg tablet Take 100 mg by mouth once daily. omeprazole (PRILOSEC) 40 mg capsule Take 40 mg by mouth once daily. levothyroxine (LEVOXYL) 50 mcg tablet Take 50 mcg by mouth daily before breakfast. busPIRone (BUSPAR) 10 mg tablet Take 10 mg by mouth three times a day as needed (anxiety). meclizine (ANTIVERT) 25 mg tab Take 25 mg by mouth three times a day as needed (vertigo). venlafaxine ER (EFFEXOR XR) 150 mg 24 hr capsule Take 1 capsule by mouth once daily. sod sulf-pot chloride-mag sulf (SUTAB) 1.479-0.188- 0.225 gram tab Take 12 tablets by mouth as directed for 2 days. Follow instructions that have been given to you by your provider's office. (Part 1, take 12 tablets. Part 2, take 12 tablets). No current facility-administered medications for this visit. ALLERGIES: Patient has no known allergies. PAST MEDICAL HISTORY Diagnosis Date COVID-19 De Quervain's disease (tenosynovitis) Depression Dermatitis Elevated LFTs CHAYO (generalized anxiety disorder) Gallbladder sludge GERD (gastroesophageal reflux disease) History of endometriosis Hyperlipidemia Hypertension Hypothyroidism Increased BMI Insomnia Pars defect of lumbar spine Renal insufficiency Seasonal allergies Vitamin D deficiency PAST SURGICAL HISTORY Procedure Laterality Date DELIVERY ONLY , low cervical, X-2 ESSURE 05/13/2010 Dr Yoder HYSTEROSCOPY, DIAGNOSTIC (SEPARATE 05/18/2019 INSERT INTRAUTERINE DEVICE 03/13/2005 Mirena PAST SURGICAL HISTORY OF BONE RECONSTRUCTION RT. FOOT PAST SURGICAL HISTORY OF 07/08/2006 Bone reconstruction on Left foot. FAMILY HISTORY Problem Relation Age of Onset Breast Cancer Mother Dx at 42 Hypertension Mother Heart Father open heart surgery Hypertension Father Alzheimer's Disease Father Hypertension Brother X-2 Hypertension Maternal Aunt Breast Cancer Maternal Aunt 78 Social History Tobacco Use Smoking status: Never Smokeless tobacco: Never Substance Use Topics Alcohol use: Yes Comment: very rarely Drug use: No REVIEW OF SYMPTOMS: REVIEW OF SYSTEMS: General: The patient denies fatigue, denies weight loss, denies weight gain, denies feeling hot, and feelings of cold. Eyes: The patient denies glaucoma, denies eye injury/surgery, denies glasses or contacts. Ear/Nose/Throat: The patient denies allergies, denies hayfever, denies ear infections, and denies bloody noses. Cardiovascular: The patient denies chest pain, denies heart disease, denies high blood pressure, denies high cholesterol, and denies poor circulation. Respiratory: The patient denies tuberculosis, denies pneumonia, denies frequent cough, denies shortness of breath, and denies coughing up blood. Gastrointestinal: The patient denies difficulty swallowing, + acid reflux, denies ulcers, denies jaundice/hepatitis, denies gallbladder problems, denies vomiting, denies black or tarry stools, denies hemorrhoids, denies bleeding from rectum, denies diverticulitis, denies constipation, denies diarrhea, denies loss of stool control, and denies hernias. Kidney/Bladder: The patient denies kidney stones, denies urine infections, and denies bloody urine. Skin: The patient denies a history of skin cancer, denies bleeding/changing moles, and den (more content not included)... Normal [facility] Vitamin D,25 Hydroxyon 01-03 Vitamin D 25-OH 26.1 ng/mL Normal [facility] Comment on above: Result Comment: Mary min D 25(OH) Status Range Deficiency <20 ng/mL (50nmol/L) Insufficiency 20 - 30 ng/mL (50 - 75 nmol/L) Sufficiency 30 - 100 ng/mL (75 - 250 nmol/L) Toxicity >100 ng/mL (>250 nmol/L) Performed By: #### L 506.0400, L502.0250, L506.1000, L100.0500, L500.4050, L501.9520, L500.4100 ####[facility] [address] [place], [address] CBC-Complete Blood Cnt No Di ffon 01-02-2024 Erythrocyte distribution width (RBC) [Ratio] 14.6 % Normal 11.6-14.6 [facility] Comment on above: Performed By: #### L 506.0400, L502.0250, L506.1000, L100.0500, L500.4050, L501.9520, L500.4100 ####[facility] [address] [place], [address] Hematocrit (Bld) [Volume fraction] 42.2 % Normal 37-47 [facility] Comment on above: Performed By: #### L 506.0400, L502.0250, L506.1000, L100.0500, L500.4050, L501.9520, L500.4100 ####[facility] [address] [place], [address] Hemoglobin (Bld) [Mass/Vol] 13.3 g/dL Normal 12.0-15.0 [facility] Comment on above: Performed By: #### L 506.0400, L502.0250, L506.1000, L100.0500, L500.4050, L501.9520, L500.4100 ####[facility] [address] [place], [address] MCH (RBC) [Entitic mass] 26.0 pg Low 27.0-32.0 [facility] Comment on above: Performed By: #### L 506.0400, L502.0250, L506.1000, L100.0500, L500.4050, L501.9520, L500.4100 ####[facility] [address] [place], [address] MCHC (RBC) [Mass/Vol] 31.5 g/dL Low 32-36 [facility] Comment on above: Performed By: #### L 506.0400, L502.0250, L506.1000, L100.0500, L500.4050, L501.9520, L500.4100 ####[facility] [address] [place], [address] MCV (RBC) [Entitic vol] 82.6 fL Normal 81-99 [facility] Comment on above: Performed By: #### L 506.0400, L502.0250, L506.1000, L100.0500, L500.4050, L501.9520, L500.4100 ####[facility] [address] [place], [address] Platelet mean volume (Bld) [Entitic vol] 9.7 fL Normal 6.2-12.0 [facility] Comment on above: Performed By: #### L 506.0400, L502.0250, L506.1000, L100.0500, L500.4050, L501.9520, L500.4100 ####[facility] [address] [place], [address] Platelets (Bld) [#/Vol] 281 10*3/uL Normal 150-450 [facility] Comment on above: Performed By: #### L 506.0400, L502.0250, L506.1000, L100.0500, L500.4050, L501.9520, L500.4100 ####[facility] [address] [place], [address] RBC (Bld) [#/Vol] 5.11 10*6/uL Normal 4.2-5.4 [facility] Comment on above: Performed By: #### L 506.0400, L502.0250, L506.1000, L100.0500, L500.4050, L501.9520, L500.4100 ####[facility] [address] [place], [address] RDW SD 44.3 fl High 35.1-43.9 [facility] Comment on above: Performed By: #### L 506.0400, L502.0250, L506.1000, L100.0500, L500.4050, L501.9520, L500.4100 ####[facility] [address] [place], [address] WBC (Bld) [#/Vol] 5.5 10*3/uL Normal 4.4-11.0 [facility] Comment on above: Performed By: #### L 506.0400, L502.0250, L506.1000, L100.0500, L500.4050, L501.9520, L500.4100 ####[facility] [address] [place], [address] Comprehensive Metabolic Prof ilon 01-02-2024 Albumin [Mass/Vol] 3.4 g/dL Normal 3.2-5.0 [facility] Comment on above: Performed By: #### L 506.0400, L502.0250, L506.1000, L100.0500, L500.4050, L501.9520, L500.4100 ####[facility] [address] [place], [address] Albumin/Globulin [Mass ratio] 0.8 {ratio} Low 0.9-2.4 [facility] Comment on above: Performed By: #### L 506.0400, L502.0250, L506.1000, L100.0500, L500.4050, L501.9520, L500.4100 ####[facility] [address] [place], [address] ALK P 158 U/L High 45-117 [facility] Comment on above: Performed By: #### L 506.0400, L502.0250, L506.1000, L100.0500, L500.4050, L501.9520, L500.4100 ####[facility] [address] [place], [address] ALT [Catalytic activity/Vol] 26 U/L Normal 13-56 [facility] Comment on above: Performed By: #### L 506.0400, L502.0250, L506.1000, L100.0500, L500.4050, L501.9520, L500.4100 ####[facility] [address] [place], [address] AST [Catalytic activity/Vol] 18 U/L Normal 15-37 [facility] Comment on above: Performed By: #### L 506.0400, L502.0250, L506.1000, L100.0500, L500.4050, L501.9520, L500.4100 ####[facility] [address] [place], [address] Bilirubin [Mass/Vol] 0.70 mg/dL Normal 0.20-1.00 [facility] Comment on above: Result Comment: For patients on eltrombopag therapy, use of Dimension Brandon TBIL is not recommended. Performed By: #### L 506.0400, L502.0250, L506.1000, L100.0500, L500.4050, L501.9520, L500.4100 ####[facility] [address] [place], [address] BUN/CRE 20.1 RATIO High 10-20 [facility] Comment on above: Performed By: #### L 506.0400, L502.0250, L506.1000, L100.0500, L500.4050, L501.9520, L500.4100 ####[facility] [address] [place], [address] CA,Total 8.7 mg/dL Normal 8.5-10.1 [facility] Comment on above: Performed By: #### L 506.0400, L502.0250, L506.1000, L100.0500, L500.4050, L501.9520, L500.4100 ####[facility] [address] [place], [address] Chloride [Moles/Vol] 109 mmol/L High 98-107 [facility] Comment on above: Performed By: #### L 506.0400, L502.0250, L506.1000, L100.0500, L500.4050, L501.9520, L500.4100 ####[facility] [address] [place], [address] CO2 [Moles/Vol] 27.0 mmol/L Normal 21.0-32.0 [facility] Comment on above: Performed By: #### L 506.0400, L502.0250, L506.1000, L100.0500, L500.4050, L501.9520, L500.4100 ####[facility] [facility] [address] [place], [address] Creatinine [Mass/Vol] 0.94 mg/dL Normal 0.55-1.02 [facility] Comment on above: Result Comment: The validity of the calculated GFR GFRAA in patients over 70 years has not been determined. Clinical correlation is essential. Performed By: #### L 506.0400, L502.0250, L506.1000, L100.0500, L500.4050, L501.9520, L500.4100 ####[facility] [address] [place], [address] EST GFR - AA 80 mL/min Normal >60 [facility] Comment on above: Result Comment: Afri can British GFR Calc Performed By: #### L 506.0400, L502.0250, L506.1000, L100.0500, L500.4050, L501.9520, L500.4100 ####[facility] [address] [place], [address] GAP 3 Low 5-15 [facility] Comment on above: Performed By: #### L 506.0400, L502.0250, L506.1000, L100.0500, L500.4050, L501.9520, L500.4100 ####[facility] [address] [place], [address] GFR/1.73 sq M.predicted among non-blacks MDRD (S/P/Bld) [Vol rate/Area] 66 mL/min/{1.73_m2} Normal >60 [facility] Comment on above: Result Comment: Non- GFR Calc Performed By: #### L 506.0400, L502.0250, L506.1000, L100.0500, L500.4050, L501.9520, L500.4100 ####[facility] [address] [place], [address] Globulin (S) [Mass/Vol] 4.4 g/dL High 2.2-4.2 [facility] Comment on above: Performed By: #### L 506.0400, L502.0250, L506.1000, L100.0500, L500.4050, L501.9520, L500.4100 ####[facility] [address] [place], [address] Glucose [Mass/Vol] 100 mg/dL Normal 74-106 [facility] Comment on above: Result Comment: Fast ing Glucose result from 100 to 125 mg/dL suggests IMPAIRED HOMEOSTASIS per A.D.A. criteria. Performed By: #### L 506.0400, L502.0250, L506.1000, L100.0500, L500.4050, L501.9520, L500.4100 ####[facility] [address] [place], [address] Potassium [Moles/Vol] 4.0 mmol/L Normal 3.5-5.1 [facility] Comment on above: Performed By: #### L 506.0400, L502.0250, L506.1000, L100.0500, L500.4050, L501.9520, L500.4100 ####[facility] [address] [place], [address] Sodium [Moles/Vol] 139 mmol/L Normal 136-145 [facility] Comment on above: Performed By: #### L 506.0400, L502.0250, L506.1000, L100.0500, L500.4050, L501.9520, L500.4100 ####[facility] [address] [place], [address] T PROT 7.8 g/dL Normal 6.4-8.2 [facility] Comment on above: Performed By: #### L 506.0400, L502.0250, L506.1000, L100.0500, L500.4050, L501.9520, L500.4100 ####[facility] [address] [place], [address] Urea nitrogen [Mass/Vol] 19 mg/dL High 7-18 [facility] Comment on above: Performed By: #### L 506.0400, L502.0250, L506.1000, L100.0500, L500.4050, L501.9520, L500.4100 ####[facility] [address] [place], [address] Lipid Profileon 01-02-2024 Cholesterol [Mass/Vol] 173 mg/dL Normal 200 [facility] Comment on above: Result Comment: <200 mg/dL Desirable 200-240 mg/dL Borderline >240 mg/dL High Risk Performed By: #### L 506.0400, L502.0250, L506.1000, L100.0500, L500.4050, L501.9520, L500.4100 ####[facility] [address] [place], [address] Cholesterol in HDL [Mass/Vol] 36 mg/dL Low [facility] Comment on above: Result Comment: The drugs N-Acetylcysteine and Metamizole may falsely depress this assay. Reference Range HDL <40 mg/dL Low HDL Cholesterol HDL >or= 60 mg/dL High HDL Cholesterol Performed By: #### L 506.0400, L502.0250, L506.1000, L100.0500, L500.4050, L501.9520, L500.4100 ####[facility] [address] [place], [address] Cholesterol in LDL [Mass/Vol] 115 mg/dL Normal 0-130 [facility] Comment on above: Performed By: #### L 506.0400, L502.0250, L506.1000, L100.0500, L500.4050, L501.9520, L500.4100 ####[facility] [address] [place], [address] Cholesterol in VLDL [Mass/Vol] 22 mg/dL Normal 5-40 [facility] Comment on above: Performed By: #### L 506.0400, L502.0250, L506.1000, L100.0500, L500.4050, L501.9520, L500.4100 ####[facility] [address] [place], [address] Triglyceride [Mass/Vol] 111 mg/dL Normal [facility] Comment on above: Result Comment: The drugs N-Acetylcysteine and Metamizole may falsely depress this assay. Serum Triglycerides Reference Interval Normal <150 mg/dL Borderline high 150 - 199 mg/dL High 200 - 499 mg/dL Very High > or = 500 mg/dL Performed By: #### L 506.0400, L502.0250, L506.1000, L100.0500, L500.4050, L501.9520, L500.4100 ####[facility] [address] [place], [address] Microalb:Creat Ratio,Random URon 01-02-2024 Creatinine [Mass/Vol] 161.00 mg/dL Normal NO RAN GE EST. [facility] Comment on above: Performed By: #### L 506.0400, L502.0250, L506.1000, L100.0500, L500.4050, L501.9520, L500.4100 ####[facility] [address] [place], [address] MALB:CRE 6.0 mg/g CRE Normal <30 mg/g CRE [facility] Comment on above: Performed By: #### L 506.0400, L502.0250, L506.1000, L100.0500, L500.4050, L501.9520, L500.4100 ####[facility] [address] [place], [address] MICROALBUMIN,UR 9.7 mg/L Normal NO RANGE EST. [facility] Comment on above: Performed By: #### L 506.0400, L502.0250, L506.1000, L100.0500, L500.4050, L501.9520, L500.4100 ####[facility] [address] [place], [address] T4 Free Directon 01-02-2024 T4 FREE DIRECT 0.84 ng/dL Normal 0.76-1.46 [facility] Comment on above: Performed By: #### L 506.0400, L502.0250, L506.1000, L100.0500, L500.4050, L501.9520, L500.4100 ####[facility] [address] [place], [address] Thyroid Stim Hormone (TSH)on 01-02-2024 TSH 1.75 uIU/mL Normal 0.358-3.74 [facility] Comment on above: Performed By: #### L 506.0400, L502.0250, L506.1000, L100.0500, L500.4050, L501.9520, L500.4100 ####[facility] [address] [place], [address] [facility] Telephone ([facility]) LING DAIS ([id number]) 1970 F Date Time Provider Department 11/24/23 MAI BRANDT [facility] During your visit today, we recorded the following information about you: Mai Brandt APRN.[facility] 11/24/2023 11:00 AM Signed Urine culture reveals bacterial growth. The Macrobid prescribed is appropriate. Please complete all of the antibiotic. Follow up with your PCP for continued and/or worsening symptoms. Please advise patient Cecilia Boyle LPN 11/24/2023 11:28 AM Signed Pt notified of results and provider's message. Cecilia Boyle LPN Allergies As of Date: 11/24/2023 (No Known Allergies) Date Reviewed: 11/22/2023 Reviewed by: Arlen Hamlin - Fully Assessed Reason for Visit: Results [95] Prescriptions as of 11/24/2023 - nitrofurantoin monohydrate and macrocrystal (MACROBID) 100 mg capsule Take 1 capsule by mouth two times a day for 5 days. - amLODIPine (NORVASC) 5 mg tablet Take 5 mg by mouth once daily. - sertraline (ZOLOFT) 50 mg tablet Take 50 mg by mouth once daily. - losartan (COZAAR) 100 mg tablet Take 100 mg by mouth once daily. - omeprazole (PRILOSEC) 40 mg capsule Take 40 mg by mouth once daily. - levothyroxine (LEVOXYL) 50 mcg tablet Take 50 mcg by mouth daily before breakfast. - busPIRone (BUSPAR) 10 mg tablet Take 10 mg by mouth as needed (anxiety). - meclizine (ANTIVERT) 25 mg tab Take 25 mg by mouth as needed (vertigo). - guaiFENesin (MUCINEX) 600 mg 12 hr tablet Take 2 tablets by mouth twice daily. - benzonatate (TESSALON PERLES) 100 mg capsule Take 1 capsule by mouth three times daily as needed. - betamethasone dipropionate (DIPROSONE) 0.05 % cream Apply to affected area as directed. - venlafaxine ER (EFFEXOR XR) 150 mg 24 hr capsule Take 1 capsule by mouth once daily. - lisinopril(PRINIVIL 10 MG TAB) Take one(1) tablet daily. Problem List As Of Date 11/24/2023 Noted Resolved Family history of breast cancer in mother [Z80.*09/07/2015 Encounter Status:Closed by CECILIA BOYLE on 11/24/23 [facility] Bacteria Ur Culton 4 Bacteria identified Cx Nom (U) CULTURE, URINE: Mixed microbiota, including predominantly: ORGANISM ID: 1 >=100,000 CFU/ml Escherichia coli ORGANISM ID: 1 (ESCHERICHIA COLI) ------ ANTIBIOTIC INTERPRETATION JORGE A STATUS REFERENCE RANGE ------ Ampicillin R >=32 F Susceptible <=8 , Intermediate >8 , Resistant >16 Cefazolin S <=4 F Susceptible 0-16 , Intermediate <0 or >16 , Resistant >16 For uncomplicated urinary tract infections, cefazolin results can be used to predict susceptibility or resistance to cephalexin. Ceftriaxone S <=1 F Susceptible <=1 , Intermediate >1 , Resistant >=4 Cefepime S <=1 F Susceptible <=2 , Susceptible-Dose Dependent >2 , Resistant >=16 Ertapenem S <=0.5 F Susceptible <=0.5 , Intermediate >.5 , Resistant >1 Meropenem S <=0.25 F Susceptible <=1 , Intermediate >1 , Resistant >2 Ampicillin/Sulbact I 16 F Susceptible <=8 , Intermediate >8 , Resistant >16 Piperacillin/Tazobac S <=4 F Susceptible <16 , Susceptible-Dose Dependent >=16 , Resistant >=32 Gentamicin R >=16 F Susceptible <=2 , Intermediate >2 , Resistant >=8 Tobramycin R 8 F Susceptible <4 , Intermediate >=4 , Resistant >=8 Amikacin S <=2 F Susceptible <8 , Intermediate >=8 , Resistant >=16 Trimeth sulfameth R >=320 F Susceptible <=40 , Resistant >40 Ciprofloxacin S <=0.25 F Susceptible <0.5 , Intermediate >=.5 , Resistant >=1 Nitrofurantoin S <=16 F Susceptible <=32 , Intermediate >32 , Resistant >64 Abnormal [facility] Comment on above: Performed By: #### 6 30-4 ####[facility] [place] LABCLIA [id number] [address] OF [facility] CNOVon 11-22-2023 CNOV Office Visit (UCWSTR ) LING DIAS ([id number]) 1970 F Date Time Provider Department 11/22/23 8:15 AM JENNIFER KELLER [facility] During your visit today, we recorded the following information about you: Temperature Pulse Respiration Blood pressure 96.9 degrees 98/minute 16/minute 138/74 Weight 123.4 kg Jennifer Keller APRN.[facility] 11/22/2023 8:25 AM Signed CC: Patient presents with: Urinary Problem: X3DAYS HPI Ling Dias is a 53 year old female who presents with complaint of possible UTI. These symptoms have been present for 3 days. Associated symptoms: burning and frequency Denies: fever, chills, sweats, abdominal pain, and flank pain Treatments: nothing The ROS was otherwise negative. PMH, Medications, labs, allergies, and recent past visits with PCP were reviewed and updated as able. PHYSICAL EXAM: BP 138/74 Pulse 98 Temp 36.1 ?C (96.9 ?F) Resp 16 Wt 123.4 kg (272 lb) LMP (LMP Unknown) SpO2 99% BMI 41.36 kg/m? General: Well appearing and alert CV: Regular rate and rhythm without obvious murmur Lungs: clear to auscultation bilaterally Back: straight and symmetric Abdomen: soft, nontender, nondistended PAST MEDICAL HISTORY Diagnosis Date Seasonal allergies Unspecified essential hypertension PAST SURGICAL HISTORY Procedure Laterality Date DELIVERY ONLY , low cervical, X-2 ESSURE 05/2010 Dr Yoder INSERT INTRAUTERINE DEVICE 03/2005 Mirena PAST SURGICAL HISTORY OF BONE RECONSTRUCTION RT. FOOT PAST SURGICAL HISTORY OF 07/08/2006 Bone reconstruction on Left foot. ALLERGIES Patient has no known allergies. MEDICATIONS amLODIPine (NORVASC) 5 mg tablet Take 5 mg by mouth once daily. sertraline (ZOLOFT) 50 mg tablet Take 50 mg by mouth once daily. losartan (COZAAR) 100 mg tablet Take 100 mg by mouth once daily. omeprazole (PRILOSEC) 40 mg capsule Take 40 mg by mouth once daily. levothyroxine (LEVOXYL) 50 mcg tablet Take 50 mcg by mouth daily before breakfast. busPIRone (BUSPAR) 10 mg tablet Take 10 mg by mouth as needed (anxiety). meclizine (ANTIVERT) 25 mg tab Take 25 mg by mouth as needed (vertigo). venlafaxine ER (EFFEXOR XR) 150 mg 24 hr capsule Take 1 capsule by mouth once daily. nitrofurantoin monohydrate and macrocrystal (MACROBID) 100 mg capsule Take 1 capsule by mouth two times a day for 5 days. guaiFENesin (MUCINEX) 600 mg 12 hr tablet Take 2 tablets by mouth twice daily. (Patient not taking: Reported on 02/08/2023) benzonatate (TESSALON PERLES) 100 mg capsule Take 1 capsule by mouth three times daily as needed. (Patient not taking: Reported on 02/08/2023) betamethasone dipropionate (DIPROSONE) 0.05 % cream Apply to affected area as directed. (Patient not taking: Reported on 02/08/2023) lisinopril(PRINIVIL 10 MG TAB) Take one(1) tablet daily. (Patient not taking: Reported on 02/08/2023) FAMILY HISTORY Problem Relation Age of Onset Breast Cancer Mother Dx at 42 Hypertension Mother Heart Father open heart surgery Hypertension Father Hypertension Brother X-2 Breast Cancer Maternal Aunt 78 Social History Tobacco Use Smoking status: Never Smokeless tobacco: Never Substance Use Topics Alcohol use: Yes Comment: very rarely Drug use: No ASSESSMENT/PLAN: 1. Urinary frequency - ICD9: 788.41, ICD10: R35.0 - UA DIP, URINE (POC) - URINE CULTURE - NITROFURANTOIN MONOHYDRATE AND MACROCRYSTAL 100 MG ORAL CAP Prescription instructions reviewed with patient as applicable. Potential red flag symptoms discussed with the patient. Reviewed appropriate action plan to take if red flag symptoms occur. Patient agreeable to treatment plan. Jennifer Keller APRN.[facility] Allergies As of Date: 11/22/2023 (No Known Allergies) Date Reviewed: 11/22/2023 Reviewed by: Arlen Hamlin - Fully Assessed Reason for Visit: Urinary Problem [252] Cmt: X3DAYS Primary Visit Diagnosis:Urinary frequency [R35.0] Order(s):UA DIP, URINE (POC) [7762964] Order #: [id number]. #:[id number] URINE CULTURE [SQURCUL] Order #: [id number]. #:[id number] nitrofurantoin monohydrate and macrocrystal (MACROBID) 100 mg capsuleTake 1 capsule by mouth two times a day for 5 days.Disp: 10 capsuleRfl: 0 Prescriptions as of 11/22/2023 - nitrofurantoin monohydrate and macrocrystal (MACROBID) 100 mg capsule Take 1 capsule by mouth two times a day for 5 days. - amLODIPine (NORVASC) 5 mg tablet Take 5 mg by mouth once daily. - sertraline (ZOLOFT) 50 mg tablet Take 50 mg by mouth once daily. - losartan (COZAAR) 100 mg tablet Take 100 mg by mouth once daily. - omeprazole (PRILOSEC) 40 mg capsule Take 40 mg by mouth once daily. - levothyroxine (LEVOXYL) 50 mcg tablet Take 50 mcg by mouth daily before breakfast. - busPIRone (BUSPAR) 10 mg tablet Take 10 mg by mouth as needed (anxiety). - meclizine (more content not included)... Normal [facility] UA DIP, URINE (POC)on 2023 BILIRUBIN UA (POCT) Negative Negative [facility] CLARITY UA (POCT) Clear [facility] COLOR UA (POCT) Yellow [facility] GLUCOSE UA (POCT) Negative Negative mg/dL [facility] Hemoglobin Ql (U) Large Abnormal Negative [facility] Interpretation and review of laboratory results Abnormal [facility] KETONE UA (POCT) Negative Negative mg/dL [facility] LEUKOCYTES UA (POCT) Small Abnormal Negative [facility] NITRITE UA (POCT) Positive Abnormal Negative [facility] PH UA (POCT) 6.0 4.5 - 8.0 [facility] Protein Ql (U) 30 mg/dL Abnormal Negative [facility] SPECIFIC GRAVITY UA (POCT) 1.020 1 .005 - 1.030 [facility] UROBILINOGEN UA (POCT) 0.2 Kriss l E.U./dL [facility] Location:[address], [place], [place], [id number] [address] POINT OF CARE [facility] MAMMOGRAM SCREENING BILAT ERAL W/TOMOon 09-28-2023 NM MAMMOGRAM SCREENING BILATERAL W/AMINTA [facility]INAL [facility] [address], [place] [address] PROCEDURE FOR: LING DIAS [address] [place] [address] Home: PID#: [id number] Exam#: [id number] : 1970 Age: 53 TO: CHARLEE HUMPHRIES CARDIAC SONOGRAPHER [facility] [address] [address] Fax: NO FAX EXAMINATION: SCREENING DIGITAL BILATERAL MAMMOGRAM WITH TOMOSYNTHESIS, 09/22/2023 9:47 am TECHNIQUE: Screening mammography of the bilateral breasts was performed with tomosynthesis. 2D standard and 3D tomosynthesis combination imaging performed through both breasts in the MLO and CC projection. Computer aided detection was utilized in the interpretation of this exam. COMPARISON: September 18, 2022, September 21, 2021, August 07, 2020 HISTORY: Breast cancer screening. FINDINGS: BREAST DENSITY: Scattered fibroglandular tissue There are bilateral benign-type calcifications. There is no significant mass, architectural distortion or microcalcification. Fibroglandular pattern is stable. IMPRESSION: No mammographic evidence of malignancy. Continued screening with annual mammograms is recommended. Bria Schmidt risk calculations, generated with the history provided, report this patient's 10 year risk and lifetime risk for developing breast cancer at 3% and 11.6%, respectively. Based on this assessment tool, if the patient's calculated lifetime risk is below 20%, then the patient is considered at average risk for developing breast cancer. If the patient's calculated lifetime risk is at or above 20%, then the patient is considered high risk for developing breast cancer and may be a candidate for supplemental breast MRI screening in addition to annual mammographic screening per the [employer]. BIRADS: MAMMOGRAM BI-RADS: 2: Benign finding RECALL: 1 year screening RECALL TYPE: mammo LETTER SENT: Normal BI-RADS 1 and 2 Interpreted by: Lakeisha Hanson Preliminary Report By: Lakeisha Hanson Electronically signed By Lakeisha Hanson Dictated Date: 09/28/2023 6:12:38 AM Prelim Date: 09/28/2023 6:19:28 AM Sign Date: 09/28/2023 6:19:28 AM Ordering Provider: CHARLEE UHMPHRIES Rubber Grinder: SAMANTA MALCOLM([place])(M)(CT) letter sent: Normal BI-RADS 1 and 2 Mammogram BI-RADS: 2 Benign Normal [facility] ([place]) CNOVon 09-24-2023 CNOV Office Visit (UCWSTR ) LING DIAS ([id number]) 1970 F Date Time Provider Department 09/24/23 9:15 AM JENNIFER KELLERWSTR During your visit today, we recorded the following information about you: Temperature Pulse Respiration Blood pressure 98.6 degrees 86/minute 20/minute 142/98 Weight 123 kg Jennifer Keller APRN.[facility] 09/24/2023 9:50 AM Signed CC: Patient presents with: Sinus Problem: Chest congestion, nasal congestion, headache, cough at HS x 1 week Patient has had sinus pressure, congestion, and cough for a week. Patient denies sore throat or pleuritic pain. HPI: Ling Dias is a 53 year old female who presents to the office with complaint of head congestion, cough, nonproductive, and sinus symptoms for a week. Symptoms are worsening Associated symptoms includes nasal congestion, facial pain/pressure, headache, and cough. Denies sore throat, fever, ear pain, and dyspnea. Treatments tried include OTC cold medicine with minor relief of symptoms. Sick contacts: no. History of asthma, frequent episodes of bronchitis, chronic bronchitis, bronchiectasis or COPD: No Smoker: No Seasonal/environmenta l allergies: No The ROS is otherwise negative. The patient's pmh, medications, allergies, and past visits are reviewed. PHYSICAL EXAM: BP 142/98 Pulse 86 Temp 37 ?C (98.6 ?F) Resp 20 Wt 123 kg (271 lb 2.7 oz) LMP (LMP Unknown) SpO2 100% BMI 41.23 kg/m? General appearance: alert, cooperative, pleasant, in no acute distress Head: Normocephalic Eyes: PERRLA, EOM's intact, conjunctiva pink and moist, no icterus, sclera white, non-injected Ears: Right ear: External ear/canal- Normal, TM - clear with good landmarks. Left ear: External ear/canal- Normal, TM - clear with good landmarks Nose: clear. Oropharynx:moist without lesions, mild erythema, without exudates present Neck:supple and no adenopathy Heart: Negative. RRR without obvious murmur, gallop, or rubs. No ectopy. Lungs: clear to auscultation, without rales or wheeze, good air exchange PAST MEDICAL HISTORY Diagnosis Date Seasonal allergies Unspecified essential hypertension PAST SURGICAL HISTORY Procedure Laterality Date DELIVERY ONLY , low cervical, X-2 ESSURE 05/2010 Dr Yoder INSERT INTRAUTERINE DEVICE 03/2005 Mirena PAST SURGICAL HISTORY OF BONE RECONSTRUCTION RT. FOOT PAST SURGICAL HISTORY OF 07/08/2006 Bone reconstruction on Left foot. ALLERGIES Patient has no known allergies. MEDICATIONS amLODIPine (NORVASC) 5 mg tablet Take 5 mg by mouth once daily. sertraline (ZOLOFT) 50 mg tablet Take 50 mg by mouth once daily. losartan (COZAAR) 100 mg tablet Take 100 mg by mouth once daily. omeprazole (PRILOSEC) 40 mg capsule Take 40 mg by mouth once daily. levothyroxine (LEVOXYL) 50 mcg tablet Take 50 mcg by mouth daily before breakfast. busPIRone (BUSPAR) 10 mg tablet Take 10 mg by mouth as needed (anxiety). meclizine (ANTIVERT) 25 mg tab Take 25 mg by mouth as needed (vertigo). venlafaxine ER (EFFEXOR XR) 150 mg 24 hr capsule Take 1 capsule by mouth once daily. cephALEXin (KEFLEX) 500 mg capsule Take 1 capsule by mouth twice daily. (Patient not taking: Reported on 02/08/2023) guaiFENesin (MUCINEX) 600 mg 12 hr tablet Take 2 tablets by mouth twice daily. (Patient not taking: Reported on 02/08/2023) benzonatate (TESSALON PERLES) 100 mg capsule Take 1 capsule by mouth three times daily as needed. (Patient not taking: Reported on 02/08/2023) betamethasone dipropionate (DIPROSONE) 0.05 % cream Apply to affected area as directed. (Patient not taking: Reported on 02/08/2023) lisinopril(PRINIVIL 10 MG TAB) Take one(1) tablet daily. (Patient not taking: Reported on 02/08/2023) FAMILY HISTORY Problem Relation Age of Onset Breast Cancer Mother Dx at 42 Hypertension Mother Heart Father open heart surgery Hypertension Father Hypertension Brother X-2 Breast Cancer Maternal Aunt 78 Social History Tobacco Use Smoking status: Never Smokeless tobacco: Never Substance Use Topics Alcohol use: Yes Comment: very rarely Drug use: No DATA REVIEWED: No new labs ASSESSMENT/PLAN: 1. Rhinosinusitis - ICD9: 473.9, ICD10: J32.9 - Will begin treatment with as per antibiotic as written, see orders - Supportive care with plenty of fluids, rest, and analgesia prn. - AMOXICILLIN 875 MG-POTASSIUM CLAVULANATE 125 MG TABLET Prescription instructions reviewed with patient. Potential red flag symptoms discussed with the patient. Reviewed appropriate action plan to take if red flag symptoms occur. Patient agreeable to treatment plan. Brooke Bertrand Supervising provider was present and guided the care of the patient for the entire session on this date. All documentation was reviewed and agreed upon. Jennifer Keller APRN.[facility] Allergies As of Date: 09/24/2023 (more content not included)... Normal [facility] Basophil percentageOrdered B y: Charlee Humphries on 06-08-2023 Bilirubin [Mass/Vol] 0.50 mg/dL 0.20-1.00 [facility] Comment on above: For patients on eltr ombopag therapy, use of Dimension [place] TBIL is not recommended. Chloride [Moles/Vol] 106 mmol/L 98-107 [facility] Cholesterol [Mass/Vol] 190 mg/dL <200 [facility] Comment on above: <200 mg/dL Desirable 200-240 mg/dL Borderline >240 mg/dL High Risk Glucose [Mass/Vol] 91 mg/dL 74-106 [facility] Potassium [Moles/Vol] 3.6 mmol/L 3.5-5.1 [facility] Protein [Mass/Vol] 7.9 g/dL 6.4-8.2 [facility] Sodium [Moles/Vol] 140 mmol/L 136-145 [facility] Triglyceride [Mass/Vol] 151 mg/dL <199 [facility] Comment on above: The drugs N-Acetylcy steine and Metamizole may falsely depress this assay.Serum Triglycerides Reference Interval Normal <150 mg/dL Borderline high 150 - 199 mg/dL High 200 - 499 mg/dL Very High > or = 500 mg/dL WBC (Bld) [#/Vol] 7.1 10*3/uL 4.4-11.0 [facility] Blood erythrocytes count (nu mber/volume)Ordered By: Charlee Humphries on 06-08-2023 RBC (Bld) [#/Vol] 5.14 10*6/uL 4.2-5.4 [facility] Blood hemoglobin measurement (mass/volume)Ordered By: Charlee Humphries on 06-08-2023 Hemoglobin (Bld) [Mass/Vol] 13.4 g/dL 12.0-15.0 [facility] Blood platelet mean volumeOr dered By: Charlee Humphries on 06-08-2023 Platelet mean volume (Bld) [Entitic vol] 9.5 fL 6.2-12.0 [facility] Determination of erythrocyte mean corpuscular volume (MCV)Ordered By: Charlee Humphries on 06-08-2023 MCV (RBC) [Entitic vol] 83.9 fL 81-99 [facility] Hematocrit Auto (Bld) [Volum e fraction]Ordered By: Charlee Humphries on 06-08-2023 Hematocrit (Bld) [Volume fraction] 43.1 % 37-47 [facility] Laboratory - Chemistry and C hemistry - challengeOrdered By: Charlee Humphries on 06-08-2023 ALP [Catalytic activity/Vol] 146 U/L 45-117 [facility] ALT [Catalytic activity/Vol] 48 U/L 13-56 [facility] CO2 [Moles/Vol] 29.0 mmol/L 21.0-32.0 [facility] Free T4 [Mass/Vol] 0.92 ng/dL 0.76-1.46 [facility] Globulin (S) [Mass/Vol] 4.5 g/dL 2.2-4.2 [facility] Urea nitrogen/Creatinine [Mass ratio] 18.7 mg/mg 10-20 [facility] Laboratory - Hematology and Cell countsOrdered By: Charlee Humphries on 06-08-2023 Erythrocyte distribution width (RBC) [Entitic vol] 43.6 fL 35.1-43.9 [facility] Erythrocyte distribution width (RBC) [Ratio] 14.2 % 11.6-14.6 [facility] MCH (RBC) [Entitic mass] 26.1 pg 27.0-32.0 [facility] MCHC Auto (RBC) [Mass/Vol]Or dered By: Charlee Humphries on 06-08-2023 MCHC (RBC) [Mass/Vol] 31.1 g/dL 32-36 [facility] No Panel InformationOrdered By: Charlee Humphries on 06-08-2023 Estimated GFR (MDRD) Amer 78 mL/min >60 [facility] Comment on above: GFR Calc Estimated GFR (MDRD) Non-Af Amer 65 mL/min >60 [facility] Comment on above: Non- GFR Calc Thyroid Stimulating Hormone (TSH) 1.60 uIU/mL 0.358-3.74 [facility] Urine Microalbumin/Creatinine Ratio 6.2 mg/g CRE <30 [facility] Vitamin D 25-Hydroxy 17.0 ng/mL [facility] Comment on above: Vitamin D 25(OH) Sta tus Range Deficiency <20 ng/mL (50nmol/L) Insufficiency 20 - 30 ng/mL (50 - 75 nmol/L) Sufficiency 30 - 100 ng/mL (75 - 250 nmol/L) Toxicity >100 ng/mL (>250 nmol/L) Platelets bldOrdered By: Caden Humphries on 06-08-2023 Platelets (Bld) [#/Vol] 330 10*3/uL 150-450 [facility] Serum or plasma albumin eliel urement (mass/volume)Ordered By: Charlee Humphries on 06-08-2023 Albumin [Mass/Vol] 3.4 g/dL 3.2-5.0 [facility] Serum or plasma albumin/glob ulin mass ratioOrdered By: Charlee Humphries on 06-08-2023 Albumin/Globulin [Mass ratio] 0.8 {ratio} 0.9-2.4 [facility] Serum or plasma calcium eliel urement (mass/volume)Ordered By: Charlee Humphries on 06-08-2023 Calcium [Mass/Vol] 8.5 mg/dL 8.5-10.1 [facility] Serum or plasma cholesterol in HDL measurement (mass/volume)Ordered By: Charlee Humphries on 06-08-2023 Cholesterol in HDL [Mass/Vol] 38 mg/dL >40 [facility] Comment on above: The drugs N-Acetylcy steine and Metamizole may falsely depress this assay. Reference Range HDL <40 mg/dL Low HDL Cholesterol HDL >or= 60 mg/dL High HDL Cholesterol Serum or plasma cholesterol in VLDL measurement (mass/volume)Ordered By: Charlee Humphries on 06-08-2023 Cholesterol in VLDL [Mass/Vol] 30 mg/dL 5-40 [facility] Serum or plasma creatinine m easurement (mass/volume)Ordered By: Charlee Humphries on 06-08-2023 Creatinine [Mass/Vol] 0.96 mg/dL 0.55-1.02 [facility] Comment on above: The validity of the calculated GFR & GFRAA in patients over 70 years has not been determined. Clinical correlation is essential. Serum or plasma low density lipoprotein (LDL) cholesterol measurement (mass/volume)Ordered By: Charlee Humphries on 06-08-2023 Cholesterol in LDL [Mass/Vol] 122 mg/dL 0-130 [facility] Serum or plasma urea nitroge n measurement (mass/volume)Ordered By: Charlee Humphries on 06-08-2023 Urea nitrogen [Mass/Vol] 18 mg/dL 7-18 [facility] Thin prep Papanicolaou smear with manual screeningOrdered By: Charlee Humphries on 06-08-2023 Thin prep Papanicolaou smear with manual screening 17 U/L 15-37 [facility] Thin prep Papanicolaou smear with manual screening 5 5-15 [facility] Thin prep Papanicolaou smear with manual screening 9.6 mg/L NO RANGE EST. [facility] Urine creatinine measurement (mass/volume)Ordered By: Charlee Humphries on 06-08-2023 Creatinine (U) [Mass/Vol] 156.00 mg/dL NO RANGE EST. [facility] XR Toes - left 3 Viewson IMPRESSION: Mild sof t tissue swelling in the third digit. No acute fracture seen. Product Safety Expert: [employer] Transcribe Date/Time: May 02 2023 11:55A Dictated by : RODRIGUEZ ATWOOD MD This examination was interpreted and the report reviewed and electronically signed by: RODRIGUEZ ATWOOD MD on May 02 2023 11:57AM EST DIVISION OF RADIOLOGY * * *Final Report* * * DATE OF EXAM: May 02 2023 11:37AM [id number] - XR TOE 3V AP/LAT/OBL LT / PROCEDURE REASON: Injury of toe on left foot, initial encounter * * * * Physician Interpretation * * * * EXAM TITLE: XR TOE 3V AP/LAT/OBL LT EXAM DATE/TIME: 05/02/2023 11:37 AM COMPARISON: None CLINICAL INDICATION/HISTORY: Injury. TECHNIQUE: AP, lateral and oblique views of the third digit of the left foot are presented. FINDINGS: No acute fractures or subluxations are noted. The joint spaces are well preserved. The mineralization of the bones is normal. There is mild soft tissue swelling. DIVISION OF RADIOLOGY Provider, [facility] - 05/02/2023 * * *Final Report* * * DATE OF EXAM: May 02 2023 11:37AM WOX [id number] - XR TOE 3V AP/LAT/OBL LT / PROCEDURE REASON: Injury of toe on left foot, initial encounter * * * * Physician Interpretation * * * * EXAM TITLE: XR TOE 3V AP/LAT/OBL LT EXAM DATE/TIME: 05/02/2023 11:37 AM COMPARISON: None CLINICAL INDICATION/HISTORY: Injury. TECHNIQUE: AP, lateral and oblique views of the third digit of the left foot are presented. FINDINGS: No acute fractures or subluxations are noted. The joint spaces are well preserved. The mineralization of the bones is normal. There is mild soft tissue swelling. IMPRESSION IMPRESSION: Mild soft tissue swelling in the third digit. No acute fracture seen. Product Safety Expert: [facility] Transcribe Date/Time: May 02 2023 11:55A Dictated by : RODRIGUEZ ATWOOD MD This examination was interpreted and the report reviewed and electronically signed by: RODRIGUEZ ATWODO MD on May 02 2023 11:57AM EST [facility] Radiology Study observation (narrative) [facility] XR Toes - left 3 ViewsOrdere d By: [facility] Provider on 05-02-2023 [facility] UA DIP, URINE (POC)on 2022 BILIRUBIN UA (POCT) Small Abnormal Negative [facility] CLARITY UA (POCT) [facility] COLOR UA (POCT) Red [facility] GLUCOSE UA (POCT) Negative Negative mg/dL [facility] HEMOGLOBIN/BLOOD UA (POCT) Large Abnormal Negative [facility] KETONE UA (POCT) Trace Negative mg/dL [facility] LEUKOCYTES UA (POCT) Large Abnormal Negative [facility] NITRITE UA (POCT) Positive Abnormal Negative [facility] PH UA (POCT) 5.5 4.5 - 8.0 [facility] Protein Ql (U) 100 mg/dL Abnormal Negative mg/dL [facility] SPECIFIC GRAVITY UA (POCT) 1.020 1 .005 - 1.030 [facility] UROBILINOGEN UA (POCT) 1.0 E.U./dL Kriss l E.U./dL [facility] Basophil percentageOrdered B y: Charlee Humphries on 11-29-2022 Bilirubin [Mass/Vol] 0.40 mg/dL 0.20-1.00 [facility] Comment on above: For patients on eltr ombopag therapy, use of Dimension [place] TBIL is not recommended. Chloride [Moles/Vol] 107 mmol/L 98-107 [facility] Cholesterol [Mass/Vol] 170 mg/dL <200 [facility] Comment on above: <200 mg/dL Desirable 200-240 mg/dL Borderline >240 mg/dL High Risk Glucose [Mass/Vol] 96 mg/dL 74-106 [facility] Potassium [Moles/Vol] 4.3 mmol/L 3.5-5.1 [facility] Protein [Mass/Vol] 7.4 g/dL 6.4-8.2 [facility] Sodium [Moles/Vol] 141 mmol/L 136-145 [facility] Triglyceride [Mass/Vol] 77 mg/dL <199 [facility] Comment on above: The drugs N-Acetylcy steine and Metamizole may falsely depress this assay.Serum Triglycerides Reference Interval Normal <150 mg/dL Borderline high 150 - 199 mg/dL High 200 - 499 mg/dL Very High > or = 500 mg/dL WBC (Bld) [#/Vol] 5.7 10*3/uL 4.4-11.0 [facility] Blood erythrocytes count (nu mber/volume)Ordered By: Charlee Humphries on 11-29-2022 RBC (Bld) [#/Vol] 4.95 10*6/uL 4.2-5.4 [facility] Blood hemoglobin measurement (mass/volume)Ordered By: Charlee Humphries on 11-29-2022 Hemoglobin (Bld) [Mass/Vol] 13.3 g/dL 12.0-15.0 [facility] Blood platelet mean volumeOr dered By: Charlee Humphries on 11-29-2022 Platelet mean volume (Bld) [Entitic vol] 9.5 fL 6.2-12.0 [facility] Determination of erythrocyte mean corpuscular volume (MCV)Ordered By: Charlee Humphries on 11-29-2022 MCV (RBC) [Entitic vol] 82.6 fL 81-99 [facility] Hematocrit Auto (Bld) [Volum e fraction]Ordered By: Charlee Humphries on 11-29-2022 Hematocrit (Bld) [Volume fraction] 40.9 % 37-47 [facility] Laboratory - Chemistry and C hemistry - challengeOrdered By: Charlee Humphries on 11-29-2022 ALP [Catalytic activity/Vol] 157 U/L 45-117 [facility] ALT [Catalytic activity/Vol] 22 U/L 13-56 [facility] CO2 [Moles/Vol] 29.0 mmol/L 21.0-32.0 [facility] Free T4 [Mass/Vol] 0.97 ng/dL 0.76-1.46 [facility] Globulin (S) [Mass/Vol] 4.2 g/dL 2.2-4.2 [facility] Urea nitrogen/Creatinine [Mass ratio] 23.2 mg/mg 10-20 [facility] Laboratory - Hematology and Cell countsOrdered By: Charlee Humphries on 11-29-2022 Erythrocyte distribution width (RBC) [Entitic vol] 42.7 fL 35.1-43.9 [facility] Erythrocyte distribution width (RBC) [Ratio] 14.3 % 11.6-14.6 [facility] MCH (RBC) [Entitic mass] 26.9 pg 27.0-32.0 [facility] MCHC Auto (RBC) [Mass/Vol]Or dered By: Charlee Humphries on 11-29-2022 MCHC (RBC) [Mass/Vol] 32.5 g/dL 32-36 [facility] No Panel InformationOrdered By: Charlee Humphries on 11-29-2022 Estimated GFR (MDRD) Amer 89 mL/min >60 [facility] Comment on above: GFR Calc Estimated GFR (MDRD) Non-Af Amer 74 mL/min >60 [facility] Comment on above: Non- GFR Calc Platelets bldOrdered By: Caden Humphries on 11-29-2022 Platelets (Bld) [#/Vol] 259 10*3/uL 150-450 [facility] Serum or plasma albumin eliel urement (mass/volume)Ordered By: Charlee Humphries on 11-29-2022 Albumin [Mass/Vol] 3.2 g/dL 3.2-5.0 [facility] Serum or plasma albumin/glob ulin mass ratioOrdered By: Charlee Humphries on 11-29-2022 Albumin/Globulin [Mass ratio] 0.8 {ratio} 0.9-2.4 [facility] Serum or plasma calcium eliel urement (mass/volume)Ordered By: Charlee Humphries on 11-29-2022 Calcium [Mass/Vol] 8.5 mg/dL 8.5-10.1 [facility] Serum or plasma cholesterol in HDL measurement (mass/volume)Ordered By: Charlee Humphries on 11-29-2022 Cholesterol in HDL [Mass/Vol] 40 mg/dL >40 [facility] Comment on above: The drugs N-Acetylcy steine and Metamizole may falsely depress this assay. Reference Range HDL <40 mg/dL Low HDL Cholesterol HDL >or= 60 mg/dL High HDL Cholesterol Serum or plasma cholesterol in VLDL measurement (mass/volume)Ordered By: Charlee Humphries on 11-29-2022 Cholesterol in VLDL [Mass/Vol] 15 mg/dL 5-40 [facility] Serum or plasma creatinine m easurement (mass/volume)Ordered By: Charlee Humphries on 11-29-2022 Creatinine [Mass/Vol] 0.86 mg/dL 0.55-1.02 [facility] Comment on above: The validity of the calculated GFR & GFRAA in patients over 70 years has not been determined. Clinical correlation is essential. Serum or plasma low density lipoprotein (LDL) cholesterol measurement (mass/volume)Ordered By: Charlee Humphries on 11-29-2022 Cholesterol in LDL [Mass/Vol] 115 mg/dL 0-130 [facility] Serum or plasma urea nitroge n measurement (mass/volume)Ordered By: Charlee Humphries on 11-29-2022 Urea nitrogen [Mass/Vol] 20 mg/dL 7-18 [facility] Thin prep Papanicolaou smear with manual screeningOrdered By: Charlee Humphries on 11-29-2022 Thin prep Papanicolaou smear with manual screening 16 U/L 15-37 [facility] Thin prep Papanicolaou smear with manual screening 5 5-15 [facility] Thin prep Papanicolaou smear with manual screening < 5.0 mg/L NO RANGE EST. [facility] Basophil percentageon 2021 Bilirubin [Mass/Vol] 0.60 mg/dL 0.20-1.00 [facility] Work Phone: Comment on above: For patients on eltr ombopag therapy, use of Dimension [place] TBIL is not recommended. Chloride [Moles/Vol] 107 mmol/L 98-107 [facility] Work Phone: Cholesterol [Mass/Vol] 196 mg/dL <200 [facility] Work Phone: Comment on above: <200 mg/dL Desirable 200-240 mg/dL Borderline >240 mg/dL High Risk Glucose [Mass/Vol] 92 mg/dL 74-106 [facility] Work Phone: [phone] Potassium [Moles/Vol] 3.7 mmol/L 3.5-5.1 [facility] Work Phone: [phone] Protein [Mass/Vol] 8.1 g/dL 6.4-8.2 [facility] Work Phone: [phone] Sodium [Moles/Vol] 140 mmol/L 136-145 [facility] Work Phone: [phone] Triglyceride [Mass/Vol] 92 mg/dL <199 [facility] Work Phone: Comment on above: The drugs N-Acetylcy steine and Metamizole may falsely depress this assay.Serum Triglycerides Reference Interval Normal <150 mg/dL Borderline high 150 - 199 mg/dL High 200 - 499 mg/dL Very High > or = 500 mg/dL WBC (Bld) [#/Vol] 7.7 10*3/uL 4.4-11.0 [facility] Work Phone: [phone] Blood erythrocytes count (nu mber/volume)on 05-17-2022 RBC (Bld) [#/Vol] 5.10 10*6/uL 4.2-5.4 [facility] Work Phone: [phone] Blood hemoglobin measurement (mass/volume)on 05-17-2022 Hemoglobin (Bld) [Mass/Vol] 14.2 g/dL 12.0-15.0 [facility] Work Phone: [phone] Blood platelet mean volumeon 05-17-2022 Platelet mean volume (Bld) [Entitic vol] 9.7 fL 6.2-12.0 [facility] Work Phone: [phone] Determination of erythrocyte mean corpuscular volume (MCV)on 05-17-2022 MCV (RBC) [Entitic vol] 83.9 fL 81-99 [facility] Work Phone: [phone] Hematocrit Auto (Bld) [Volum e fraction]on 05-17-2022 Hematocrit (Bld) [Volume fraction] 42.8 % 37-47 [facility] Work Phone: [phone] Laboratory - Chemistry and C hemistry - challengeon 05-17-2022 ALP [Catalytic activity/Vol] 125 U/L 45-117 [facility] Work Phone: [phone] ALT [Catalytic activity/Vol] 31 U/L 13-56 [facility] Work Phone: [phone] CO2 [Moles/Vol] 26.0 mmol/L 21.0-32.0 [facility] Work Phone: [phone] Free T4 [Mass/Vol] 0.90 ng/dL 0.76-1.46 [facility] Work Phone: [phone] Globulin (S) [Mass/Vol] 4.5 g/dL 2.2-4.2 [facility] Work Phone: Urea nitrogen/Creatinine [Mass ratio] 21.4 mg/mg 10-20 [facility] Work Phone: [phone] Laboratory - Hematology and Cell countson 05-17-2022 Erythrocyte distribution width (RBC) [Entitic vol] 47.3 fL 35.1-43.9 [facility] Work Phone: [phone] Erythrocyte distribution width (RBC) [Ratio] 15.5 % 11.6-14.6 [facility] Work Phone: [phone] MCH (RBC) [Entitic mass] 27.8 pg 27.0-32.0 [facility] Work Phone: [phone] MCHC Auto (RBC) [Mass/Vol]on 05-17-2022 MCHC (RBC) [Mass/Vol] 33.2 g/dL 32-36 [facility] Work Phone: No Panel Informationon 05-17 Estimated GFR (MDRD) Amer 86 mL/min >60 [facility] Work Phone: Comment on above: GFR Calc Estimated GFR (MDRD) Non-Af Amer 71 mL/min >60 [facility] Work Phone: Comment on above: Non- GFR Calc Thyroid Stimulating Hormone (TSH) 1.78 uIU/mL 0.358-3.74 [facility] Work Phone: Platelets bldon 05-17-2022 Platelets (Bld) [#/Vol] 269 10*3/uL 150-450 [facility] Work Phone: [phone] Serum or plasma albumin eliel urement (mass/volume)on 05-17-2022 Albumin [Mass/Vol] 3.6 g/dL 3.2-5.0 [facility] Work Phone: [phone] Serum or plasma albumin/glob ulin mass ratioon 05-17-2022 Albumin/Globulin [Mass ratio] 0.8 {ratio} 0.9-2.4 [facility] Work Phone: [phone] Serum or plasma calcium eliel urement (mass/volume)on 05-17-2022 Calcium [Mass/Vol] 9.3 mg/dL 8.5-10.1 [facility] Work Phone: [phone] Serum or plasma cholesterol in HDL measurement (mass/volume)on 05-17-2022 Cholesterol in HDL [Mass/Vol] 48 mg/dL >40 [facility] Work Phone: Comment on above: The drugs N-Acetylcy steine and Metamizole may falsely depress this assay. Reference Range HDL <40 mg/dL Low HDL Cholesterol HDL >or= 60 mg/dL High HDL Cholesterol Serum or plasma cholesterol in VLDL measurement (mass/volume)on 05-17-2022 Cholesterol in VLDL [Mass/Vol] 18 mg/dL 5-40 [facility] Work Phone: [phone] Serum or plasma creatinine m easurement (mass/volume)on 05-17-2022 Creatinine [Mass/Vol] 0.89 mg/dL 0.55-1.02 [facility] Work Phone: Comment on above: The validity of the calculated GFR & GFRAA in patients over 70 years has not been determined. Clinical correlation is essential. Serum or plasma low density lipoprotein (LDL) cholesterol measurement (mass/volume)on 05-17-2022 Cholesterol in LDL [Mass/Vol] 130 mg/dL 0-130 [facility] Work Phone: Serum or plasma urea nitroge n measurement (mass/volume)on 05-17-2022 Urea nitrogen [Mass/Vol] 19 mg/dL 7-18 [facility] Work Phone: [phone] Thin prep Papanicolaou smear with manual screeningon 05-17-2022 Thin prep Papanicolaou smear with manual screening 17 U/L 15-37 [facility] Work Phone: [phone] Thin prep Papanicolaou smear with manual screening 7 5-15 [facility] Work Phone: [phone] Basophil percentageon 2021 Amylase [Catalytic activity/Vol] 61 U/L 25-115 [facility] Work Phone: [phone] Bilirubin [Mass/Vol] 0.80 mg/dL 0.20-1.00 [facility] Work Phone: Comment on above: For patients on eltr ombopag therapy, use of Dimension [place] TBIL is not recommended. Chloride [Moles/Vol] 106 mmol/L 98-107 [facility] Work Phone: Glucose [Mass/Vol] 86 mg/dL 74-106 [facility] Work Phone: [phone] Potassium [Moles/Vol] 4.0 mmol/L 3.5-5.1 [facility] Work Phone: [phone] Protein [Mass/Vol] 8.0 g/dL 6.4-8.2 [facility] Work Phone: [phone] Sodium [Moles/Vol] 141 mmol/L 136-145 [facility] Work Phone: [phone] WBC (Bld) [#/Vol] 6.1 10*3/uL 4.4-11.0 [facility] Work Phone: [phone] Blood erythrocytes count (nu mber/volume)on 03-22-2022 RBC (Bld) [#/Vol] 5.04 10*6/uL 4.2-5.4 [facility] Work Phone: [phone] Blood hemoglobin measurement (mass/volume)on 03-22-2022 Hemoglobin (Bld) [Mass/Vol] 14.0 g/dL 12.0-15.0 [facility] Work Phone: [phone] Blood platelet mean volumeon 03-22-2022 Platelet mean volume (Bld) [Entitic vol] 10.6 fL 6.2-12.0 [facility] Work Phone: [phone] Determination of erythrocyte mean corpuscular volume (MCV)on 03-22-2022 MCV (RBC) [Entitic vol] 84.5 fL 81-99 [facility] Work Phone: [phone] Hematocrit Auto (Bld) [Volum e fraction]on 03-22-2022 Hematocrit (Bld) [Volume fraction] 42.6 % 37-47 [facility] Work Phone: Laboratory - Chemistry and C hemistry - challengeon 03-22-2022 ALP [Catalytic activity/Vol] 105 U/L 45-117 [facility] Work Phone: ALT [Catalytic activity/Vol] 21 U/L 13-56 [facility] Work Phone: CO2 [Moles/Vol] 28.0 mmol/L 21.0-32.0 [facility] Work Phone: Globulin (S) [Mass/Vol] 4.2 g/dL 2.2-4.2 [facility] Work Phone: Lipase [Catalytic activity/Vol] 164 U/L 73-393 [facility] Work Phone: [phone] Urea nitrogen/Creatinine [Mass ratio] 21.0 mg/mg 10-20 [facility] Work Phone: Laboratory - Hematology and Cell countson 03-22-2022 Erythrocyte distribution width (RBC) [Entitic vol] 45.5 fL 35.1-43.9 [facility] Work Phone: [phone] Erythrocyte distribution width (RBC) [Ratio] 15.0 % 11.6-14.6 [facility] Work Phone: MCH (RBC) [Entitic mass] 27.8 pg 27.0-32.0 [facility] Work Phone: MCHC Auto (RBC) [Mass/Vol]on 03-22-2022 MCHC (RBC) [Mass/Vol] 32.9 g/dL 32-36 [facility] Work Phone: No Panel Informationon 03-22 Estimated GFR (MDRD) Amer 75 mL/min >60 [facility] Work Phone: Comment on above: GFR Calc Estimated GFR (MDRD) Non-Af Amer 62 mL/min >60 [facility] Work Phone: Comment on above: Non- GFR Calc Platelets bldon 03-22-2022 Platelets (Bld) [#/Vol] 306 10*3/uL 150-450 [facility] Work Phone: Serum or plasma albumin eliel urement (mass/volume)on 03-22-2022 Albumin [Mass/Vol] 3.8 g/dL 3.2-5.0 [facility] Work Phone: Serum or plasma albumin/glob ulin mass ratioon 03-22-2022 Albumin/Globulin [Mass ratio] 0.9 {ratio} 0.9-2.4 [facility] Work Phone: Serum or plasma calcium eliel urement (mass/volume)on 03-22-2022 Calcium [Mass/Vol] 9.3 mg/dL 8.5-10.1 [facility] Work Phone: Serum or plasma creatinine m easurement (mass/volume)on 03-22-2022 Creatinine [Mass/Vol] 1.00 mg/dL 0.55-1.02 [facility] Work Phone: Comment on above: The validity of the calculated GFR & GFRAA in patients over 70 years has not been determined. Clinical correlation is essential. Serum or plasma urea nitroge n measurement (mass/volume)on 03-22-2022 Urea nitrogen [Mass/Vol] 21 mg/dL 7-18 [facility] Work Phone: Thin prep Papanicolaou smear with manual screeningon 03-22-2022 Thin prep Papanicolaou smear with manual screening 12 U/L 15-37 [facility] Work Phone: Thin prep Papanicolaou smear with manual screening 7 5-15 [facility] Work Phone: EMERGENCY REPORTon 2 EMERGENCY REPORT [facility] EMERGENCY ROOM REPORT NAME ACCOUNT SEX AGE ADMIT DISCHARGE PT MED. RECORD# NUMBER DATE DATE TYPE LARISSA [id number] F 51 02/25/22 02/26/22 1 LING Tucker [id number] ROOM: [facility] DATE OF : 1970 DICTATING PHYSICIAN: Ricardo aYo ADDENDUM: I did discuss with Dr. Luis, who admitted the patient. He wanted me to contact Dr. Hall, which I did so. Dr. Hall came down to the department. We talked about the patient, discussed the patient, and he will see her on the floor. Dictated By: Ricardo Yao DO 02/25/22 13:29 JOB #: [id number] Transcribed By: millicent 02/27/22 06:26 Electronically signed by: MARSHALL Yao DO 02/28/22 08:16 Page 1 of 1 LING DIAS Emergency Room Report Normal [facility] EMERGENCY REPORT [facility] EMERGENCY ROOM REPORT NAME ACCOUNT SEX AGE ADMIT DISCHARGE PT MED. RECORD# NUMBER DATE DATE TYPE LARISSA [id number] F 51 02/25/22 02/26/22 1 LING Tucker [id number] ROOM: 305 DATE OF : 1970 DICTATING PHYSICIAN: Ricardo Yao HISTORY OF PRESENT ILLNESS: The patient came in complaining of abdominal pain. She had a sudden onset of abdominal pain after eating a breakfast in her left upper abdominal area and epigastric area. It was sharp, sudden, and nothing really made it better. She came immediately to the emergency department. It was a constant, stabbing pain. She had nausea and vomiting, sweats. PAST MEDICAL HISTORY: She does have a history of hypertension. She has a history of depression and anxiety. PAST SURGICAL HISTORY: She had a . SOCIAL HISTORY: She does not smoke or drink. REVIEW OF SYSTEMS: Ten systems reviewed and negative except as mentioned above. PHYSICAL EXAMINATION: VITAL SIGNS: Per chart. HEENT: Head is normocephalic and atraumatic. Eyes: Pupils are equal, round, and reactive to light. Extraocular muscles are intact. Nares are patent. Throat has adequate oral moisture. Uvula is midline. NECK: Neck is supple without petechiae or rash. HEART: Heart is regular rate and rhythm without murmur. S1 equals S2. No S3 or S4 appreciated. LUNGS: Lungs are clear to auscultation bilaterally. No rales, rhonchi, or retractions. ABDOMEN: Abdomen is soft, nontender, and nondistended. SKIN: Skin is warm and dry. DIAGNOSTIC DATA: The patient had blood work obtained. White count was 12,000, H&H 13 and 41. Potassium 3.2, calcium 8.9, glucose 109, AST 60, ALT 42, and alkaline phosphatase 124. Lipase was 280,702. Her CT showed sludge in the gallbladder. She had an EKG which showed a rate of 83, normal axis. No obvious ST elevation or depression. Dictated By: Ricardo Yao DO 02/25/22 13:29 JOB #: [id number] Page 1 of 2 ABELINOJacqui LING L Emergency Room Report LING DIAS : 1970 Transcribed By: am 02/27/22 06:21 Electronically signed by: MARSHALL Yao DO 02/28/22 08:16 Page 2 of 2 LING DIAS Emergency Room Report Normal [facility] CBC + DIFFon 02-26-2022 Baso # 0.00 x10EE3/UL Normal 0.00 - 0.10 [facility] Comment on above: Performed By: #### 2 84712 #### [facility],[address] [place] [address] 79795 Basophils/100 WBC (Bld) 0.3 % Normal 0.0 - 2.0 [facility] Comment on above: Performed By: #### 2 53789 #### [facility],[address] [place] [address] CBC + DIFF Normal [facility] Comment on above: Result Comment: CBC- COMPLETE BLOOD COUNT Performed By: #### 2 45318 #### [facility],[address] [place] [address] 80694 EO # 0.00 x10EE3/UL Normal 0.00 - 0.50 [facility] Comment on above: Performed By: #### 2 90875 #### [facility],[address] [place] [address] 30252 Eosinophils/100 WBC (Bld) 0.0 % Normal 0.0 - 7.0 [facility] Comment on above: Performed By: #### 2 53043 #### [place] [address] Erythrocyte distribution width (RBC) [Ratio] 14.5 % Normal 12.0 - 15.6 [facility] Comment on above: Performed By: #### 2 03750 #### [facility],[address] [place] [address] Hematocrit (Bld) [Volume fraction] 37.6 % Normal 34.0 - 46.0 [facility] Comment on above: Performed By: #### 2 66153 #### [facility],[address] [place] [address] Hemoglobin (Bld) [Mass/Vol] 12.3 g/dL Normal 12.0 - 16.0 [facility] Comment on above: Performed By: #### 2 34334 #### [facility],[address] [place] [address] Lymph # 1.10 x10EE3/UL Normal 0.80 - 2.80 [facility] Comment on above: Performed By: #### 2 98673 #### [facility],[address] [place], [place] [id number] Lymphocytes/100 WBC (Bld) 23.9 % Normal 20.0 - 45. 0 [facility] Comment on above: Performed By: #### 2 52327 #### [facility],[address] [place], [place] [id number] MANUAL DIFF N/A Normal [facility] Comment on above: Performed By: #### 2 07285 #### [facility],[address] [place], [place] [phone] MCH (RBC) [Entitic mass] 27 pg Normal 27 - 33 [facility] Comment on above: Performed By: #### 2 92860 #### [place] [id number] MCHC 33 X10 3 Normal 32 - 36 [facility] Comment on above: Performed By: #### 2 35284 #### [facility],[address] [place], [place] [phone] MCV (RBC) [Entitic vol] 81 fL Normal 80 - 99 [facility] Comment on above: Performed By: #### 2 42565 #### [facility],[address] [place] [address] Coles # 0.20 x10EE3/UL Normal 0.20 - 1.00 [facility] Comment on above: Performed By: #### 2 39205 #### [facility],[address] [place] [address] MONOS % 5.2 % Normal 0.0 - 10.0 [facility] Comment on above: Performed By: #### 2 99356 #### [place] [address] Morphology Chilo (Bld) [Interp] N/A Normal [facility] Comment on above: Result Comment: {CD] Performed By: #### 2 67253 #### [place] [address] Neut # 3.20 x10EE3/UL Normal 1.50 - 7.10 [facility] Comment on above: Performed By: #### 2 81986 #### [place] [address] Neutrophils/100 WBC (Bld) 70.6 % Normal 46.0 - 76. 0 [facility] Comment on above: Performed By: #### 2 23236 #### [facility],[address] [place] [address] PLATELET 218 x10EE3/UL Normal 150 - 450 [facility] Comment on above: Performed By: #### 2 90604 #### [place] [address] Platelet mean volume (Bld) [Entitic vol] 8.4 fL Normal 6.6 - 10.5 [facility] Comment on above: Result Comment: AUTO MATED DIFFERENTIAL Performed By: #### 2 39982 #### [facility],[address] [place] [address] 50459 RBC 4.63 x 10EE6/UL Normal 4.10 - 5.30 [facility] Comment on above: Performed By: #### 2 51728 #### [facility],[address] [place] [address] 84604 WBC 4.5 x 10EE3/UL Normal 4.5 - 10.8 [facility] Comment on above: Performed By: #### 2 94644 #### [facility],[address] [place] [address] 77130 CMP with eGFRon 02-26-2022 AGE 51 years Normal [facility] Comment on above: Performed By: #### 2 59518 #### [facility],[address] [place] [address] 87890 Albumin [Mass/Vol] 3.0 g/dL Low 3.4 - 5.0 [facility] Comment on above: Performed By: #### 2 30200 #### [facility],[address] [place] [address] 35342 Albumin/Globulin [Mass ratio] 0.9 {ratio} Normal 0.9 - 1.6 [facility] Comment on above: Performed By: #### 2 97302 #### [facility],[address] [place] [address] 69909 ALK PHOS 116 U/L Normal 46 - 116 [facility] Comment on above: Performed By: #### 2 72247 #### [facility],[address] [place] [address] 11824 ALT [Catalytic activity/Vol] 63 U/L High 14 - 59 [facility] Comment on above: Performed By: #### 2 68343 #### [facility],[address] [place] [address] 58846 Anion gap [Moles/Vol] 11 mmol/L Normal 10 - 20 [facility] Comment on above: Performed By: #### 2 75323 #### [facility],[address] [place] [address] 29458 AST [Catalytic activity/Vol] 47 U/L High 13 - 39 [facility] Comment on above: Performed By: #### 2 65583 #### [facility],[address] [place] [address] 60656 B/C RATIO 11 ratio Normal 0 - 30 [facility] Comment on above: Performed By: #### 2 66878 #### [facility],[address] [place] [address] 22312 Bilirubin [Mass/Vol] 0.7 mg/dL Normal 0.2 - 1.0 [facility] Comment on above: Performed By: #### 2 70845 #### [facility],[address] [place] [address] 33480 Calcium [Mass/Vol] 8.4 mg/dL Low 8.5 - 10.1 [facility] Comment on above: Performed By: #### 2 38644 #### [facility],[address] [place] [address] 89429 Chloride [Moles/Vol] 107 mmol/L Normal 98 - 107 [facility] Comment on above: Performed By: #### 2 17494 #### [facility],[address] [place] [address] 80730 CMP with eGFR Normal [facility] Comment on above: Result Comment: COMP REHENSIVE METABOLIC PANEL Performed By: #### 2 10364 #### [facility],[address] [place] [address] 57407 CO2 [Moles/Vol] 29.2 mmol/L Normal 21.0 - 32.0 [facility] Comment on above: Performed By: #### 2 66506 #### [facility],[address] [place] [address] 69764 Creatinine [Mass/Vol] 0.90 mg/dL Normal 0.55 - 1.02 [facility] Comment on above: Performed By: #### 2 33976 #### [facility],[address] [place] [address] 56609 GFR/1.73 sq M.predicted among non-blacks MDRD (S/P/Bld) [Vol rate/Area] mL/min/{1.73_m2} Normal 60 - 999 [facility] Comment on above: Performed By: #### 2 95473 #### [facility],[address] [place] [address] 27972 Result Comment: ACCO RDING TO THE NATIONAL KIDNEY DISEASE EDUCATION PROGRAM(NKDE), A NORMAL eGFR IS A VALUE GREATER THAN OR EQUAL TO 60 ML/MIN/1.73 SQ METERS. CHRONIC KIDNEY DISEASE: <60mL/MIN/1.73 SQ METERS KIDNEY FAILURE: <15mL/MIN/1.73 SQ METERS THIS TEST SHOULD ONLY BE USED FOR PATIENTS 18 YEARS OF AGE AND OLDER. Globulin (S) [Mass/Vol] 3.5 g/dL Normal 1.5 - 3.8 [facility] Comment on above: Performed By: #### 2 03636 #### [facility],[address] [place] [address] 27466 Glucose [Mass/Vol] 88 mg/dL Normal 74 - 106 [facility] Comment on above: Performed By: #### 2 78084 #### [facility],[address] [place] [address] 01125 Potassium [Moles/Vol] 3.2 mmol/L Low 3.5 - 5.1 [facility] Comment on above: Performed By: #### 2 57487 #### [facility],[address] [place] [address] 39769 Protein [Mass/Vol] 6.5 g/dL Normal 6.4 - 8.2 [facility] Comment on above: Performed By: #### 2 79771 #### [facility],[address] [place] [address] 51840 Sodium [Moles/Vol] 144 mmol/L Normal 136 - 145 [facility] Comment on above: Performed By: #### 2 47783 #### [address],[place] [address] Urea nitrogen [Mass/Vol] 10 mg/dL Normal 7 - 18 [facility] Comment on above: Performed By: #### 2 37043 #### [facility],[address] [place] [address] 72507 LIPASEon 02-26-2022 Lipase [Catalytic activity/Vol] 1708.0 U/L High 73.0 - 393 [facility] Comment on above: Performed By: #### 2 69759 #### [facility],[address] [place] [address] 54998 CBC + DIFFon 02-25-2022 Baso # 0.00 x10EE3/UL Normal 0.00 - 0.10 [facility] Comment on above: Performed By: #### 2 85242 #### [address] [address] Basophils/100 WBC (Bld) 0.2 % Normal 0.0 - 2.0 [facility] Comment on above: Performed By: #### 2 97888 #### [facility],[address] [place] [address] 99846 CBC + DIFF Normal [facility] Comment on above: Result Comment: CBC- COMPLETE BLOOD COUNT Performed By: #### 2 85336 #### [facility],[address] [place] [address] 55163 EO # 0.00 x10EE3/UL Normal 0.00 - 0.50 [facility] Comment on above: Performed By: #### 2 77133 #### [facility],[address] [place] [address] 78752 Eosinophils/100 WBC (Bld) 0.0 % Normal 0.0 - 7.0 [facility] Comment on above: Performed By: #### 2 34836 #### [facility],[address] [place] [address] 86456 Erythrocyte distribution width (RBC) [Ratio] 14.5 % Normal 12.0 - 15.6 [facility] Comment on above: Performed By: #### 2 57551 #### [facility],[address] [place] [address] Hematocrit (Bld) [Volume fraction] 41.4 % Normal 34.0 - 46.0 [facility] Comment on above: Performed By: #### 2 75238 #### [facility],[address] [place] [address] Hemoglobin (Bld) [Mass/Vol] 13.5 g/dL Normal 12.0 - 16.0 [facility] Comment on above: Performed By: #### 2 93980 #### [facility],[address] [place] [address] Lymph # 1.30 x10EE3/UL Normal 0.80 - 2.80 [facility] Comment on above: Performed By: #### 2 13287 #### [facility],[address] [place] [address] Lymphocytes/100 WBC (Bld) 10.7 % Low 20.0 - 45. 0 [facility] Comment on above: Performed By: #### 2 71255 #### [facility],[address] [place] [address] MANUAL DIFF N/A Normal [facility] Comment on above: Performed By: #### 2 35959 #### [facility],[address] [place] [address] MCH (RBC) [Entitic mass] 26 pg Low 27 - 33 [facility] Comment on above: Performed By: #### 2 56169 #### [facility],[address] [place] [address] MCHC 33 X10 3 Normal 32 - 36 [facility] Comment on above: Performed By: #### 2 88913 #### [facility],[address] [place] [address] MCV (RBC) [Entitic vol] 80 fL Normal 80 - 99 [facility] Comment on above: Performed By: #### 2 39591 #### [facility],[address] [place] [address] Coles # 0.60 x10EE3/UL Normal 0.20 - 1.00 [facility] Comment on above: Performed By: #### 2 31962 #### [facility],[address] [place] [address] MONOS % 4.8 % Normal 0.0 - 10.0 [facility] Comment on above: Performed By: #### 2 67812 #### [facility],[address] [place] [address] Morphology Chilo (Bld) [Interp] N/A Normal [facility] Comment on above: Result Comment: {CD] Performed By: #### 2 42447 #### [facility],[address] [place] [address] Neut # 10.10 x10EE3/UL High 1.50 - 7.10 [facility] Comment on above: Performed By: #### 2 23464 #### [place] [address] Neutrophils/100 WBC (Bld) 84.3 % High 46.0 - 76. 0 [facility] Comment on above: Performed By: #### 2 93031 #### [place] [address] PLATELET 262 x10EE3/UL Normal 150 - 450 [facility] Comment on above: Performed By: #### 2 07246 #### [place] [address] Platelet mean volume (Bld) [Entitic vol] 8.1 fL Normal 6.6 - 10.5 [facility] Comment on above: Result Comment: AUTO MATED DIFFERENTIAL Performed By: #### 2 69981 #### [place] [address] RBC 5.16 x 10EE6/UL Normal 4.10 - 5.30 [facility] Comment on above: Performed By: #### 2 09296 #### [facility],[address] [place] [address] 42981 WBC 12.0 x 10EE3/UL High 4.5 - 10.8 [facility] Comment on above: Performed By: #### 2 67878 #### [facility],[address] [place] [address] 61535 CMP with eGFRon 02-25-2022 AGE 51 years Normal [facility] Comment on above: Performed By: #### 2 95219 #### [facility],[address] [place] [address] 69935 Albumin [Mass/Vol] 3.7 g/dL Normal 3.4 - 5.0 [facility] Comment on above: Performed By: #### 2 39662 #### [facility],[address] [place], [place] [address] Albumin/Globulin [Mass ratio] 0.9 {ratio} Normal 0.9 - 1.6 [facility] Comment on above: Performed By: #### 2 06049 #### [facility],[address] [place] [address] 02523 ALK PHOS 124 U/L High 46 - 116 [facility] Comment on above: Performed By: #### 2 19966 #### [facility],[address] [place] [address] 60606 ALT [Catalytic activity/Vol] 42 U/L Normal 14 - 59 [facility] Comment on above: Performed By: #### 2 75072 #### [facility],[address] [place] [address] 48372 Anion gap [Moles/Vol] 10 mmol/L Normal 10 - 20 [facility] Comment on above: Performed By: #### 2 37043 #### [facility],[address] [place] [address] 65249 AST [Catalytic activity/Vol] 60 U/L High 13 - 39 [facility] Comment on above: Performed By: #### 2 12761 #### [facility],[address] [place] [address] 56559 B/C RATIO 12 ratio Normal 0 - 30 [facility] Comment on above: Performed By: #### 2 52517 #### [facility],[address] [place] [address] 15414 Bilirubin [Mass/Vol] 0.7 mg/dL Normal 0.2 - 1.0 [facility] Comment on above: Performed By: #### 2 43994 #### [facility],[address] [place] [address] 76510 Calcium [Mass/Vol] 8.9 mg/dL Normal 8.5 - 10.1 [facility] Comment on above: Performed By: #### 2 41567 #### [facility],[address] [place] [address] 13276 Chloride [Moles/Vol] 104 mmol/L Normal 98 - 107 [facility] Comment on above: Performed By: #### 2 37454 #### [facility],[address] [place] [address] 26665 CMP with eGFR Normal [facility] Comment on above: Result Comment: COMP REHENSIVE METABOLIC PANEL Performed By: #### 2 65025 #### [facility],[address] [place] [address] 81828 CO2 [Moles/Vol] 29.7 mmol/L Normal 21.0 - 32.0 [facility] Comment on above: Performed By: #### 2 83284 #### [facility],[address] [place] [address] 63390 Creatinine [Mass/Vol] 1.06 mg/dL High 0.55 - 1.02 [facility] Comment on above: Performed By: #### 2 23965 #### [facility],[address] [place] [address] 20873 eGFR 55 ML/MINUTE Low 60 - 999 [facility] Comment on above: Performed By: #### 2 36533 #### [facility],[address] [place] [address] 88583 GFR/1.73 sq M.predicted among non-blacks MDRD (S/P/Bld) [Vol rate/Area] mL/min/{1.73_m2} Normal 60 - 999 [facility] Comment on above: Result Comment: ACCO RDING TO THE NATIONAL KIDNEY DISEASE EDUCATION PROGRAM(NKDE), A NORMAL eGFR IS A VALUE GREATER THAN OR EQUAL TO 60 ML/MIN/1.73 SQ METERS. CHRONIC KIDNEY DISEASE: <60mL/MIN/1.73 SQ METERS KIDNEY FAILURE: <15mL/MIN/1.73 SQ METERS THIS TEST SHOULD ONLY BE USED FOR PATIENTS 18 YEARS OF AGE AND OLDER. Performed By: #### 2 06106 #### [facility],[address] [place] [address] 59491 Globulin (S) [Mass/Vol] 4.2 g/dL High 1.5 - 3.8 [facility] Comment on above: Performed By: #### 2 50696 #### [facility],[address] [place] [address] 61268 Glucose [Mass/Vol] 109 mg/dL High 74 - 106 [facility] Comment on above: Performed By: #### 2 69056 #### [facility],[address] [place] [address] 46949 Potassium [Moles/Vol] 3.2 mmol/L Low 3.5 - 5.1 [facility] Comment on above: Performed By: #### 2 58669 #### [facility],[address] [place] [address] 91157 Protein [Mass/Vol] 7.9 g/dL Normal 6.4 - 8.2 [facility] Comment on above: Performed By: #### 2 87853 #### [facility],[address] [place] [address] 71362 Sodium [Moles/Vol] 140 mmol/L Normal 136 - 145 [facility] Comment on above: Performed By: #### 2 24280 #### [facility],[address] [place] [address] 31651 Urea nitrogen [Mass/Vol] 13 mg/dL Normal 7 - 18 [facility] Comment on above: Performed By: #### 2 90987 #### [facility],[address] [place] [address] 26555 CORONAVIRUS PCR - [facility] 02-25-2022 SARS-CoV-2 (COVID-19) RNA TAYLOR+probe Ql (Unsp spec) Negative Normal NORMAL: NEGATIVE [facility] Comment on above: Performed By: #### 2 62989 #### [place] [phone] SEND TO ? YES Normal [facility] Comment on above: Result Comment: RESU LTS FAXED TO INFECTION CONTROL. SARS-CoV-2 THIS TEST IS BEING USED UNDER THE FDA EUA PROCEDURE. THIS ASSAY HAS BEEN VALIDATED IN THE [facility] FOR USE WITH NASOPHARYNGEAL SPECIMENS IN [facility]. INTERPRETIVE DATA LABORATORY TEST RESULTS SHOULD ALWAYS BE CONSIDERED IN THE CONTEXT OF CLINICAL OBSERVATIONS AND EPIDEMIOLOGICAL DATA IN MAKING FINAL DIAGNOSIS AND PATIENT MANAGEMENT DECISIONS. PATIENT MANAGEMENT SHOULD FOLLOW CURRENT CDC GUIDELINES. A POSITIVE TEST RESULT FOR COVID-19 INDICATES THAT RNA FROM SARS-CoV-2 WAS DETECTED, AND THE PATIENT IS INFECTED WITH THE VIRUS AND PRESUMED TO BE CONTAGIOUS. A NEGATIVE TEST RESULT FOR THIS TEST MEANS THAT SARS-CoV-2 RNA WAS NOT PRESENT IN THE SPECIMEN ABOVE THE LIMIT OF DETECTION. HOWEVER, A NEGATVIE RESULT DOES NOT RULE OUT COVID-19 AND SHOULD NOT BE USED THE SOLE BASIS FOR TREATMENT OR PATIENT MANAGEMENT DECISIONS. A NEGATIVE RESULT DOES NOT EXCLUDE THE POSSIBILITY OF COVID-19. WHEN DIAGNOSTIC TESTING IS NEGATIVE, THE POSSIBLILTY OF A FALSE NEGATIVE RESULT SHOULD BE CONSIDERED IN THE CONTEXT OF A PATIENT'S RECENT EXPOSURES AND THE PRESENCE OF CLINICAL SIGNS AND SYMPTOMS CONSISTENT WITH COVID-19. THE POSSIBILITY OF A FALSE NEGATIVE RESULT SHOULD ESPECIALLY BE CONSIDERED IF THE PATIENT'S RECENT EXPOSURES OR CLINICAL PRESENTATION INDICATE THAT COVID-19 IS LIKELY, AND DIAGNOSTIC TESTS FOR OTHER CAUSES OF ILLNESS (e.g., OTHER RESPIRATORY ILLNESS) ARE NEGATIVE. IF COVID-19 IS STILL SUSPECTED BASED ON EXPOSURE HISTORY TOGETHER WITH OTHER CLINICAL FINDINGS, RE-TESTED SHOULD BE CONSIDERED BY HEALTHCARE PROVIDERS IN CONSULTATION WITH PUBLIC HEALTH AUTHORITIES. Performed By: #### [id number] #### [facility],[address] [place], [place] [id number] CT ABDOMEN/PELVIS [facility] 2021 CT ABDOMEN/PELVIS [place] [id number] Patient: LING DIAS Phone#: : 1970 Age: 51 Gender: F Pt. Type: ER Account: [id number] Location: [facility] Ordering: RICARDO YAO Exam Date: 02/25/2022/11:41 Family Phys: CHARLEE HUMPHRIES Charge Code: [id number] Physician: Lang[place] Order #: [id number] DLP Dose#: 37.0 mGy PROCEDURE: CT ABDOMEN/PELVIS WITH CONTRAST COMPARISON: None. INDICATIONS: Abdominal pain. TECHNIQUE: After obtaining the patient's consent, CT images were created with non-ionic intravenous contrast material. All CT scans at this facility use dose modulation, iterative reconstruction, and/or weight based dosing when appropriate to reduce radiation dose to as low as reasonably achievable. IV CONTRAST: Omnipaque 350,80ml TOTAL DOSE: 37.0 CTDIvol(mGy) FINDINGS: LIVER: A 6 millimeter hypodense focus high on the convexity is present but too small to characterize with certainty.. No enlargement, atrophy, abnormal density, or significant focal lesion. BILIARY: Normal. No visible dilatation or calcification. PANCREAS: Normal. No lesion, fluid collection, ductal dilatation, or atrophy. SPLEEN: Normal. No enlargement or focal lesion. KIDNEYS: Normal. No mass, obstruction, or calcification. ADRENALS: Normal. No mass or enlargement. AORTA/VASCULAR: Normal. No aneurysm or dissection. RETROPERITONEUM: Normal. No mass or adenopathy. BOWEL/MESENTERY: There is moderate stool retention proximally. No visible mass, obstruction, or bowel wall thickening. ABDOMINAL WALL: Small umbilical hernia with fat is present. URINARY BLADDER: Normal. No visible focal wall thickening, lesion, or calculus. PELVIC NODES: Normal. No adenopathy. Continued Report - Page 2 of 2 Patient: LING DIAS Phone#: : 1970 Age: 51 Gender: F Pt. Type: ER Account: [id number] Location: 052 Ordering: RICAROD YAO Exam Date: 02/25/2022/11:41 Family Phys: CHARLEE CHOWPKINS Charge Code: [id number] Physician: Langlade Order #: [id number] DLP Dose#: 37.0 mGy PELVIC ORGANS: Essure coils are present. No visible mass. Pelvic organs appropriate for patient age. BONES: There is disc space narrowing at the L5-S1 level. There is grade 1 anterolisthesis. Bilateral pars defects are present. LUNG BASES: Normal. No visible pulmonary or pleural disease. OTHER: Negative. CONCLUSION: 1. There is no evidence of acute abdominal or pelvic abnormality. 2. Bilateral pars defects and anterolisthesis are present at the L5-S1 level. Dictated by: Savanna Ware MD on 02/25/2022 at 12:11 Approved by: Savanna Ware MD on 02/25/2022 at 12:16 Normal [facility] LIPASEon 02-25-2022 Lipase [Catalytic activity/Vol] 22646.0 U/L High 73.0 - 393 [facility] Comment on above: Performed By: #### [id number] #### [facility],[address] [place], [place] [id number] US RUQ (GB/PANCREAS)on 02-25 US RUQ (GB/PANCREAS) [address] [address] Patient: LNIG DIAS Phone#: : 1970 Age: 51 Gender: F Pt. Type: ER Account: [id number] Location: 052 Ordering: RICARDO YAO Exam Date: 02/25/2022/11:01 Family Phys: Charge Code: 729146 Physician: Langlade Order #: [id number] DLP Dose#: PROCEDURE: RUQ (GB) ULTRASOUND COMPARISON: None. INDICATIONS: Right sided pain FINDINGS: LIVER: Normal. Normal size and echotexture. No significant masses. BILIARY: There is sludge in the gallbladder. Normal appearing gallbladder and biliary tree. Common bile duct diameter 3 mm. Gallbladder wall measures 0.2 cm in thickness PANCREAS: Visualized portion is unremarkable. RIGHT KIDNEY: No hydronephrosis. Renal parenchymal thinning and increased echogenicity. OTHER: Negative. CONCLUSION: 1. Gallbladder sludge 2. Medical renal disease DICTATED BY: PÉREZ JAVED MD ON 02/25/2022 AT 11:37 APPROVED BY: PÉREZ JAVED MD ON 02/25/2022 AT 11:39 Normal [facility] Vital Signs Date Time Vital Sign Value Performing Clinician Facility 08-17-2024 07:23-0500 Body mass index (BMI) [Ratio] 40.39 kg/m2 Millicent Clutter PA-C Work Phone: [facility] 08-17-2024 07:23-0500 Body temperature 97.81 [degF] Millicent Clutter PA-C Work Phone: [facility] 08-17-2024 07:23-0500 Body weight 120.5 kg Millicent Clutter PA-C Work Phone: [facility] 08-17-2024 07:23-0500 Diastolic blood pressure 80 mm[Hg] Millicent Clutter PA-C Work Phone: [facility] 08-17-2024 07:23-0500 Heart rate 90 /min Millicent Clutter PA-C Work Phone: [facility] 08-17-2024 07:23-0500 Respiratory rate 18 /min Millicent Clutter PA-C Work Phone: [facility] 08-17-2024 07:23-0500 SaO2% (BldA) [Mass fraction] 99 % Millicent Clutter PA-C Work Phone: [facility] 08-17-2024 07:23-0500 Systolic blood pressure 132 mm[Hg] Millicent Sol PA-C Work Phone: [facility] 06-24-2024 13:15-0500 Heart rate 83 /min Fredo Finelli DO Work Phone: [facility] 06-24-2024 13:15-0500 Respiratory rate 18 /min Fredo Finelli DO Work Phone: [facility] 06-24-2024 13:00-0500 Diastolic blood pressure 57 mm[Hg] Fredo Finelli DO Work Phone: [facility] 06-24-2024 13:00-0500 SaO2% (BldA) [Mass fraction] 100 % Fredo Finelli DO Work Phone: [facility] 06-24-2024 13:00-0500 Systolic blood pressure 115 mm[Hg] Fredo Finelli DO Work Phone: [facility] 06-24-2024 12:45-0500 Body temperature 97 [degF] Fredo Finelli DO Work Phone: [facility] 06-24-2024 10:27-0500 Body height 172.7 cm Fredo Finelli DO Work Phone: [facility] 06-24-2024 10:27-0500 Body mass index (BMI) [Ratio] 37.71 kg/m2 Fredo Finelli DO Work Phone: [facility] 06-24-2024 10:27-0500 Body weight 112.49 kg Fredo Finelli DO Work Phone: [facility] 06-11-2024 13:27-0500 Body temperature 98.2 [degF] Charlee Humphries ENGINEERING AIDE-C Work Phone: [facility] 06-11-2024 13:27-0500 Diastolic blood pressure 82 mm[Hg] Charlee Humphries ENGINEERING AIDE-C Work Phone: [facility] 06-11-2024 13:27-0500 Heart rate 92 /min Charlee Humphries ENGINEERING AIDE-C Work Phone: [facility] 06-11-2024 13:27-0500 Respiratory rate 16 /min Charlee Humphries ENGINEERING AIDE-C Work Phone: [facility] 06-11-2024 13:27-0500 SaO2% (BldA) [Mass fraction] 96 % Charlee Humphries ENGINEERING AIDE-C Work Phone: [facility] 06-11-2024 13:27-0500 Systolic blood pressure 142 mm[Hg] Charlee Humphries ENGINEERING AIDE-C Work Phone: [facility] 06-11-2024 10:31-0500 Body height 172.72 cm Charlee Humphries ENGINEERING AIDE-C Work Phone: [facility] 06-11-2024 10:31-0500 Body weight 120.4 kg Charlee Humphries ENGINEERING AIDE-C Work Phone: [facility] 06-09-2024 17:33-0500 Body mass index (BMI) [Ratio] 40.4 kg/m2 Charlee Humphries ENGINEERING AIDE-C Work Phone: [facility] 05-23-2024 16:48-0500 Body mass index (BMI) [Ratio] 40.86 kg/m2 Min Hameed CARDIAC SONOGRAPHER.DOPE POURER Work Phone: [facility] 05-23-2024 16:48-0500 Body temperature 97.5 [degF] Min Hameed CARDIAC SONOGRAPHER.DOPE POURER Work Phone: [facility] 05-23-2024 16:48-0500 Body weight 121.9 kg Min Hameed CARDIAC SONOGRAPHER.DOPE POURER Work Phone: [facility] 05-23-2024 16:48-0500 Diastolic blood pressure 92 mm[Hg] Min Hameed CARDIAC SONOGRAPHER.DOPE POURER Work Phone: [facility] 11-11-2024 16:48-0500 Heart rate 95 /min Min Pendlebury CARDIAC SONOGRAPHER.DOPE POURER Work Phone: [facility] 05-23-2024 16:48-0500 Respiratory rate 20 /min Min Zari CARDIAC SONOGRAPHER.DOPE POURER Work Phone: [facility] 05-23-2024 16:48-0500 SaO2% (BldA) [Mass fraction] 98 % Min Hameed CARDIAC SONOGRAPHER.DOPE POURER Work Phone: [facility] 05-23-2024 16:48-0500 Systolic blood pressure 140 mm[Hg] Min Hameed CARDIAC SONOGRAPHER.DOPE POURER Work Phone: [facility] 05-02-2024 16:38-0400 Body mass index (BMI) [Ratio] 40.96 kg/m2 Krislyn Aberegg PA Work Phone: [facility] 05-02-2024 16:38-0400 Body temperature 98.01 [degF] Krislyn Aberegg PA Work Phone: [facility] 05-02-2024 16:38-0400 Body weight 122.2 kg Krislyn Aberegg PA Work Phone: [facility] 05-02-2024 16:38-0400 Diastolic blood pressure 70 mm[Hg] Krislyn Aberegg PA Work Phone: [facility] 05-02-2024 16:38-0400 Heart rate 104 /min Krislyn Aberegg PA Work Phone: [facility] 05-02-2024 16:38-0400 Respiratory rate 16 /min Krislyn Aberegg PA Work Phone: [facility] 05-02-2024 16:38-0400 SaO2% (BldA) [Mass fraction] 98 % Krislyn Aberegg PA Work Phone: [facility] 05-02-2024 16:38-0400 Systolic blood pressure 122 mm[Hg] Krislyn Aberegg PA Work Phone: [facility] 03-29-2024 10:11-0400 Body height 172.7 cm Radha Jr CARDIAC SONOGRAPHER.DOPE POURER Work Phone: [facility] 03-29-2024 10:11-0400 Body mass index (BMI) [Ratio] 41.39 kg/m2 Radha Jr CARDIAC SONOGRAPHER.DOPE POURER Work Phone: [facility] 03-29-2024 10:11-0400 Body temperature 97 [degF] Radha Jr CARDIAC SONOGRAPHER.DOPE POURER Work Phone: [facility] 03-29-2024 10:11-0400 Body weight 123.47 kg Radha Jr CARDIAC SONOGRAPHER.DOPE POURER Work Phone: [facility] 03-29-2024 10:11-0400 Diastolic blood pressure 94 mm[Hg] Radha Jr CARDIAC SONOGRAPHER.DOPE POURER Work Phone: [facility] 03-29-2024 10:11-0400 Heart rate 91 /min Radha Jr CARDIAC SONOGRAPHER.DOPE POURER Work Phone: [facility] 03-29-2024 10:11-0400 SaO2% (BldA) [Mass fraction] 98 % Radha Jr CARDIAC SONOGRAPHER.DOPE POURER Work Phone: [facility] 03-29-2024 10:11-0400 Systolic blood pressure 146 mm[Hg] Radha Jr CARDIAC SONOGRAPHER.DOPE POURER Work Phone: [facility] 11-22-2023 08:09-0400 Body mass index (BMI) [Ratio] 41.36 kg/m2 Jennifer Keller CARDIAC SONOGRAPHER.DOPE POURER Work Phone: [facility] 11-22-2023 08:09-0400 Body temperature 96.91 [degF] Jennifer Keller CARDIAC SONOGRAPHER.DOPE POURER Work Phone: [facility] 11-22-2023 08:09-0400 Body weight 123.38 kg Jennifer Keller CARDIAC SONOGRAPHER.DOPE POURER Work Phone: [facility] 11-22-2023 08:09-0400 Diastolic blood pressure 74 mm[Hg] Jennifer Keller APRN.DOPE POURER Work Phone: [facility] 11-22-2023 08:09-0400 Heart rate 98 /min Jennifer Keller APRN.DOPE POURER Work Phone: [facility] 11-22-2023 08:09-0400 Respiratory rate 16 /min Jennifer Keller APRN.DOPE POURER Work Phone: [facility] 11-22-2023 08:09-0400 SaO2% (BldA) [Mass fraction] 99 % Jennifer Keller APRN.DOPE POURER Work Phone: [facility] 11-22-2023 08:09-0400 Systolic blood pressure 138 mm[Hg] Jennifer Keller APRN.DOPE POURER Work Phone: [facility] 09-24-2023 09:16-0400 Body temperature 98.6 [degF] Jennifer Keller APRN.DOPE POURER Work Phone: [facility] 09-24-2023 09:16-0400 Body weight 123 kg Jennifer Keller APRN.DOPE POURER Work Phone: [facility] 09-24-2023 09:16-0400 Diastolic blood pressure 98 mm[Hg] Jennifer Keller APRN.DOPE POURER Work Phone: [facility] 09-24-2023 09:16-0400 Heart rate 86 /min Jennifer Keller APRN.DOPE POURER Work Phone: [facility] 09-24-2023 09:16-0400 Respiratory rate 20 /min Jennifer Keller APRN.DOPE POURER Work Phone: [facility] 09-24-2023 09:16-0400 SaO2% (BldA) [Mass fraction] 100 % Jennifer Keller APRN.DOPE POURER Work Phone: [facility] 09-24-2023 09:16-0400 Systolic blood pressure 142 mm[Hg] Jennifer Keller APRN.DOPE POURER Work Phone: [facility] 02-08-2023 08:17-0400 Body temperature 97.81 [degF] Padmini Athy PA-C Work Phone: [facility] 02-08-2023 08:17-0400 Body weight 123.2 kg Padmini Athy PA-C Work Phone: [facility] 02-08-2023 08:17-0400 Diastolic blood pressure 84 mm[Hg] Padmini Athy PA-C Work Phone: [facility] 02-08-2023 08:17-0400 Heart rate 91 /min Padmini Athy PA-C Work Phone: [facility] 02-08-2023 08:17-0400 Respiratory rate 18 /min Padmini Athy PA-C Work Phone: [facility] 02-08-2023 08:17-0400 SaO2% (BldA) [Mass fraction] 98 % Padmini Athy PA-C Work Phone: [facility] 02-08-2023 08:17-0400 Systolic blood pressure 128 mm[Hg] Padmini Athy PA-C Work Phone: [facility] Encounters Encounter Date Encounter Type Care Provider Facility Start: 12-19-2024 ambulatory Charlee Humphries Facility:[facility] Start: 09-27-2024 End: 09-27-2024 ambulatory CHARLEE HUMPHRIES CARDIAC SONOGRAPHER - DOPE POURER Facility:[facility] Start: 09-22-2024 End: 09-22-2024 ambulatory Charlee Humphries ENGINEERING AIDE-C Work Phone: [facility] Work Phone: Start: 09-22-2024 End: 09-22-[address] Anne Ridley MD -Ultrasound, [facility] Work Phone: Start: 09-22-2024 End: 09-22-2024 ambulatory Anne Ridley Facility:[facility] Start: 08-17-2024 End: 08-17-2024 ambulatory CHARLEE HUMPHRIES Facility:[facility] Start: 08-17-2024 End: 08-17-2024 Office outpatient visit 25 minutes Millicent Sol PA-C Work Phone: [facility] Comment on above: Urinary frequency (P rimary Dx); Acute UTI Start: 06-27-2024 End: 06-27-2024 Patient encounter procedure Charlee Humphries ENGINEERING AIDE-C -Laboratory Work Phone: Start: 06-27-2024 End: 06-27-2024 ambulatory Charlee Humphries Facility:[facility] Start: 06-25-2024 End: 06-25-2024 Patient encounter procedure Charlee Humphries ENGINEERING AIDE-C -Laboratory Work Phone: Start: 06-24-2024 End: 06-25-2024 ambulatory CHARLEE HUMPHRIES Facility:[facility] Start: 06-24-2024 End: 06-24-2024 Subsequent hospital visit by physician Fredo Garcia DO Work Phone: [facility] Endoscopy Comment on above: Screen for colon can cer [Z12.11] Start: 06-11-2024 Non-patient / Non-visit Dr. Gina Puente MD -[facility] Work Phone: Start: 06-10-2024 Non-patient / Non-visit Dr. Gina Puente MD -[facility] Work Phone: Start: 06-09-2024 ambulatory Ghanshyam Puente Fac ility:[facility] Start: 06-09-2024 End: 06-11-2024 Evaluation and management of inpatient Dr. Ghanshyam Puente MD -Medical Surgical 3 Work Phone: Start: 05-23-2024 End: 05-23-2024 ambulatory CHRALEE HUMPHRIES Facility:[facility] Start: 05-23-2024 End: 05-23-2024 Office outpatient visit 25 minutes Min Hameed APRN.CNP Work Phone: [facility] Comment on above: Urinary frequency (P rimary Dx) Start: 05-04-2024 End: 05-04-2024 Telephone encounter Maximino Julian MD Work Phone: [facility] Comment on above: Results (Urine Cx mi xed) Start: 05-02-2024 End: 05-02-2024 Patient encounter procedure Fabricio HENDRIX Work Phone: [facility] Comment on above: Acute UTI (Primary D x); Burning with urination Start: 05-02-2024 End: 05-02-2024 ambulatory CHARLEE HUMPHRIES Facility:[facility] Start: 03-29-2024 End: 03-29-2024 ambulatory RADHA NAVARRO Facility:[facility] Start: 03-29-2024 End: 03-29-2024 Patient encounter procedure Radha Jr CARDIAC SONOGRAPHER.DOPE POURER Work Phone: General Surgery Comment on above: Screen for colon can cer (Primary Dx) Start: 01-02-2024 End: 01-02-2024 ambulatory Charlee Humphries Facility:[facility] Start: 11-24-2023 Telephone encounter Mai escobar CARDIAC SONOGRAPHER.DOPE POURER Work Phone: [facility] Comment on above: Results Start: 11-22-2023 End: 11-22-2023 ambulatory CHARLEE MCQUEENKINS Facility:[facility] Start: 11-22-2023 End: 11-22-2023 Patient encounter procedure Jennifer Keller CARDIAC SONOGRAPHER.DOPE POURER Work Phone: [facility] Comment on above: Urinary frequency (P rimary Dx) Start: 09-24-2023 End: 09-25-2023 ambulatory CHARLEE HUMPHRIES CARDIAC SONOGRAPHER - DOPE POURER Facility:[facility] Start: 09-24-2023 End: 09-24-2023 Patient encounter procedure CHARLEE HUMPHRIES CARDIAC SONOGRAPHER - DOPE POURER [facility] Start: 09-24-2023 End: 09-24-2023 ambulatory CHARLEE HUMPHRIES Facility:[facility] Start: 09-24-2023 End: 09-24-2023 Patient encounter procedure Jennifer Keller CARDIAC SONOGRAPHER.DOPE POURER Work Phone: [facility] Comment on above: Rhinosinusitis (Prim ulises Dx) Start: 09-04-[address] RAMILA ADAMS MD Fa cility:[facility] Start: 06-08-2023 End: 06-08-2023 ambulatory [facility] Work Phone: Start: 06-08-2023 End: 06-08-2023 [facility] Start: 05-02-2023 End: 05-02-2023 Subsequent hospital visit by physician [facility] Work Phone: Radiology Comment on above: Injury of toe on lef t foot, initial encounter [S99.922A] Start: 02-08-2023 End: 02-08-2023 Patient encounter procedure Padmini Braun PA-C Work Phone: [facility] Comment on above: Urinary frequency (P rimary Dx) Start: 11-29-2022 End: 11-29-2022 ambulatory [facility] Work Phone: Start: 11-29-2022 End: 11-29-2022 Patient encounter procedure [facility]-Laboratory Start: 09-18-2022 End: 09-18-2022 Patient encounter procedure GEMINI DERAS CARDIAC SONOGRAPHER-DOPE POURER [facility] Start: 05-17-2022 End: 05-17-2022 ambulatory [facility] Work Phone: Start: 05-17-2022 End: 05-17-2022 [facility] Start: 03-22-2022 End: 03-22-2022 ambulatory [facility] Work Phone: Start: 03-22-2022 End: 03-22-2022 [facility] Start: 02-25-2022 End: 02-26-2022 [facility] Start: 12-20-2021 End: 12-20-2021 Patient encounter procedure [facility]-Radiology, [facility] Start: 09-21-2021 End: 09-21-2021 Patient encounter procedure VEE FENTON APRN-LYNNM [facility] Procedures Date Procedure Procedure Detail Performing Clinician Start: 09-22-2024 Complete ultrasound of kidneys and bladder Charlee Humphries ENGINEERING AIDE-C Work Phone: Start: 08-17-2024 Urnls dip stick/tabl et rgnt auto w/o microscopy Millicent Sol PA-C Work Phone: Start: 06-24-2024 Colonoscopy flx dx w /collj spec when pfrmd Radha Navarro APRN.DOPE POURER Work Phone: Start: 06-24-2024 Colonoscopy Fredo flynn DO Work Phone: Start: 06-09-2024 US scan of gallbladder Charlee Humphries ENGINEERING AIDE-C Work Phone: Start: 05-23-2024 Urnls dip stick/tabl et rgnt auto w/o microscopy Maximino Julian MD Work Phone: Start: 05-02-2024 Urnls dip stick/tabl et rgnt auto w/o microscopy Padmini CATC Work Phone: Start: 11-22-2023 Urnls dip stick/tabl et rgnt auto w/o microscopy Betzaida Thornton APRN.DOPE POURER Work Phone: Start: 05-02-2023 Radex toe minimum 2 views Mehul Neves APRN.DOPE POURER Work Phone: Start: 02-08-2023 Urnls dip stick/tabl et rgnt auto w/o microscopy Padmini CATC Work Phone: Start: 12-20-2021 Plain x-ray of hand Start: 05-18-2019 Hysteroscopy fluid (substance) VEE FENTON APRN-KAYLA Start: 06-22-2018 Mammography Padmini Braun PA-C Work Phone: Start: 04-11-2009 Lipid 1996 panel - S daniella or Plasma Jennifer Keller APRN.DOPE POURER Work Phone: section VEE SMITH IN CARDIAC SONOGRAPHER-CNM Comment on above: x 2 Foot repair VEE Bartholomew PRN-CNM Comment on above: Joey surgery for bone on top of foot Plan of Treatment Date Care Activity Detail Author Start: 01-01-2029 Urine microalbumin profile DTaP,Tdap,Td Vaccine (4 - Td or Tdap) [facility] Start: 06-24-2025 Screening for malign ant neoplasm of colon [facility] Start: 06-24-2024 End: 06-24-2024 Patient encounter procedure 06/24/2024 12:00 PM EST Appointment [facility] [address] [place] [id number] Fredo Garcia, DO [address] [place] [address] colon [facility] Comment on above: colon Start: 06-11-2024 Patient discharge [facility] Start: 06-09-2024 Following clinical pathway protocol [facility] Start: 06-09-2024 Assessment of risk o f venous thromboembolism [facility] Start: 06-09-2024 Insertion of cathete r into peripheral vein [facility] Start: 06-09-2024 Providing care accor ding to standard [facility] Start: 06-09-2024 [facility] Start: 06-09-[address] [facility] Start: 03-13-2024 Covid-19 Vaccine ( season) Covid-19 Vaccine () [facility] Start: 03-13-2024 Covid-19 Vaccine () Covid-19 Vaccine ( season) [facility] Start: 03-13-2024 Influenza vaccination Influenza Vacc ine (#1) [facility] Start: 12-23-2023 End: 12-23-2023 Patient encounter procedure 12/23/2023 4:15 PM EDT Office Visit General Surgery [address] [place] [address] Buzz Serrano MD [address] [place] [address] COLON CONSULT - PCP REFERRING - IN SCANNED DOC General Surgery Comment on above: COLON CONSULT - PCP REFERRING - IN SCANNED DOC Start: 07-13-2023 Behavioral Health Screening Behavioral Health Screening [facility] Start: 07-13-2023 Depression Assessment Depression Ass [facility][1]ment [facility] Start: 03-13-2023 Covid-19 Vaccine () Covid-19 Vaccine () [facility] Start: 03-13-2023 Influenza vaccination INFLUENZA (#1) [facility] Start: 07-13-2022 DEPRESSION ASSESSMENT DEPRESSION ASS ESSMENT [facility] Start: 09-16-2021 HPV TESTING HPV TESTING [facility] Start: 09-16-2021 PAP TESTING PAP TESTING [facility] Start: 09-16-2021 Screening for malign ant neoplasm of cervix [facility] Start: 2021 Pneumococcal Vaccine : 50+ (1 of 1 - PCV) Pneumococcal Vaccine: 50+ (1 of 1 - PCV) [facility] Start: 2021 SHINGRIX VACCINE (1 of 2) ANGULO GRIX VACCINE (1 of 2) [facility] Start: 06-22-2019 Mammography MAMMOGRAM [facility] Start: 06-22-2019 Screening for malign ant neoplasm of breast Mammogram Screening [facility] Start: 04-11-2019 Urine microalbumin profile DTAP,TDAP,TD (2 - Td or Tdap) [facility] Start: 2016 COLOGUARD (FIT-DNA) COLOGUARD (FIT-D NA) [facility] Start: 2016 Colonoscopy COLONOSCOPY [facility] Start: 2016 COLORECTAL CANCER SCREENING COLORECTAL CANCER SCREENING [facility] Start: [address] COLONOGRAPHY [facility] Start: 2016 DIABETES SCREEN DIABETES SCREEN [facility] Start: 2016 Diabetes Screening Diabetes Screenin g [facility] Start: 2016 FECAL OCCULT BLOOD FECAL OCCULT BLOO D [facility] Start: 2016 Lipid panel Lipid Screening [facility] [facility] Start: 2016 LIPID SCREEN LIPID SCREEN [facility] Start: 2016 Screening for malign ant neoplasm of colon [facility] Start: 2016 SIGMOIDOSCOPY SIGMOIDOSCOPY [facility] Start: 1990 Hepatitis B Vaccine (1 of 3 - 19+ 3-dose series) Hepatitis B Vaccine (1 of 3 - 19+ 3-dose series) [facility] Start: 1989 Anxiety Screening Anxiety Screening [facility] Start: 1989 Depression Screening Depression Scre ening [facility] Start: 1989 HEPATITIS C SCREENING HEPATITIS C [facility] Start: 1989 Hepatitis C screening Hepatitis C [facility] Start: 1989 HIV SCREENING HIV SCREENING [facility] Start: 1989 HIV screening HIV Screening [facility] Start: 1971 HEPATITIS B (1 of 3 - 3-dose series) HEPATITIS B (1 of 3 - 3-dose series) [facility] Bacteria identified in Urine by Culture URINE CULTURE Microbiology Routine Urinary frequency Ordered: 02/08/2023 [facility] Work Phone: Comment on above: Ordered: 02/08/2023 Bacteria identified in Urine by Culture URINE CULTURE Microbiology Routine Urinary frequency Ordered: 11/22/2023 [facility] Work Phone: Comment on above: Ordered: 11/22/2023 Bacteria identified in Urine by Culture URINE CULTURE Microbiology Routine Burning with urination Ordered: 05/02/2024 [facility] Work Phone: Comment on above: Ordered: 05/02/2024 Bacteria identified in Urine by Culture URINE CULTURE Microbiology Routine Urinary frequency Ordered: 05/23/2024 [facility] Work Phone: Comment on above: Ordered: 05/23/2024 Bacteria identified in Urine by Culture BACTERIAL CULTURE, URINE Microbiology Routine Urinary frequency Acute UTI Ordered: 08/17/2024 [facility] Work Phone: Comment on above: Ordered: 08/17/2024 Patient referral [facility] Work Phone: End: 03-29-2025 Screening colonoscopy COLONOSCOPY SCREENING Endoscopy Routine Screen for colon cancer 1 Occurrences starting 03/29/2024 until 03/29/2025 [facility] Work Phone: Comment on above: 1 Occurrences starti ng 03/29/2024 until 03/29/2025 Immunizations Immunization Date Immunization Notes Care Provider Darlyn azul 04-11-2023 influenza, injectabl e, quadrivalent, contains preservative; Translations: [Fluarix PF Quadrivalent ] CHARLEE HUMPHRIES CARDIAC SONOGRAPHER - [facility] 04-11-2023 influenza virus vaccine, unspecified formulation Radha Navarro CARDIAC SONOGRAPHER.[facility] Work Phone: [facility] 05-06-2022 influenza, injectabl e, quadrivalent, contains preservative; Translations: [Fluarix PF Quadrivalent ] GEMINI DERAS CARDIAC SONOGRAPHER-[facility] 04-16-2021 influenza, injectabl e, quadrivalent, contains preservative; Translations: [Fluarix PF Quadrivalent ] VEE FENTON CARDIAC SONOGRAPHER-[facility] 03-17-2020 influenza virus vaccine, unspecified formulation VEE FENTON CARDIAC SONOGRAPHER-[facility] 04-26-2019 influenza, injectabl e, quadrivalent, preservative free; Translations: [Fluarix PF Quadrivalent ] VEE FENTON CARDIAC SONOGRAPHER-[facility] 01-01-2019 tetanus toxoid, reduced diphtheria toxoid, and acellular pertussis vaccine, adsorbed VEE FENTON CARDIAC SONOGRAPHER-[facility] 03-22-2018 influenza virus vaccine, unspecified formulation VEE JOSSY CARDIAC SONOGRAPHER-[facility] 05-01-2017 influenza virus vaccine, unspecified formulation VEE JOSSY CARDIAC SONOGRAPHER-[facility] 04-18-2015 influenza virus vaccine, unspecified formulation VEE JOSSY CARDIAC SONOGRAPHER[facility] 06-30-2014 influenza virus vaccine, unspecified formulation VEE JOSSY CARDIAC SONOGRAPHER[facility] 05-03-2011 influenza virus vaccine, live, attenuated, for intranasal use Padmini Braun PA-C Work Phone: [facility] Work Phone: 04-11-2009 influenza virus vaccine, unspecified formulation Padmini Athy PA-C Work Phone: [facility] 04-11-2009 tetanus toxoid, reduced diphtheria toxoid, and acellular pertussis vaccine, adsorbed Padmini Athy PA-C Work Phone: [facility] 02-09-2008 tetanus toxoid, reduced diphtheria toxoid, and acellular pertussis vaccine, adsorbed VEE JOSSY CARDIAC SONOGRAPHER-[facility] Payers Date Payer Category Payer Unknown [id number] 2023 Self-pay [id number] 2023 Unknown [id number] 2019 Unknown [id number] 2019 Unknown [id number] 1970 Unknown [id number] 2.16.84 [id number] 1970 Unknown [id number] 2.16.8 [id number] 1971 Unknown [id number] 2.16.8 [id number] 1971 Unknown [id number] 2.16.8 [id number] Unknown [id number] 2.16.8 [id number] Unknown [id number] 2.16.8 [id number] Unknown [id number] 2.16.8 [id number] Unknown [id number] 2.16.8 [id number] Unknown [id number] 2.16.8 [id number] Unknown [id number] 2.16.8 [id number] Unknown [id number] 2.16.8 [id number] Unknown [id number] 2.16.8 [id number] Unknown [id number] 2.16.8 [id number] Social History Date Type Detail Facility Start: 02-01-2019 End: 06-09-2024 Never smoked tobacco (finding) [facility] Start: 1970 Sex Assigned At Female A [facility] Start: 04-19-2020 End: 04-19-2020 Tobacco smoking status NHIS Unknown if ever smoked [facility] Start: 04-19-2020 None [facility] Start: 04-19-2020 Spouse/ Signif icant Other;With Family [facility] Start: 02-08-2023 End: 08-17-2024 Alcohol intake Current drinker of alcohol (finding) [facility] Start: 02-08-2023 End: 03-29-2024 History of Social function [facility] Start: 02-08-2023 End: 03-29-2024 Tobacco use panel [facility] Start: 05-04-2013 Alcohol Comment very rarely [facility] Start: 1970 Sex Assigned At Not on file [facility] National Score (1-100), lower number is lower risk Not on file [facility] Start: 10-03-2024 Sex Female (finding) [facility] Goals Date Patient Goal Desired Activity /State Functional Status Date Assessment Result Facility 06-11-2024 Functional status Activity Ability Indepe ndent [facility] Work Phone: 06-10-2024 Functional status Patient Activity Up ad richie [facility] Work Phone: Mental Status Date Assessment Result Facility 06-11-2024 Cognitive function Voice/Name [facility] Work Phone: Clinical Notes 02-08-2023 to 09-23-2024 Millicent Sol PA-C - 08/17/2024 7:34 AM Fredo Dotson, DO - 06/24/2024 12:45 PM Fredo Dotson, DO - 06/24/2024 12:45 PM EST Note Date & Type Note Facility 09-23-2024 Radiology Diagnostic study note [facility] Imaging Services [address] [place], [place] [address] Kidney and Bladder MR#: [id number] Acct: [id number] Name: LING DIAS Rep #: [id number] : 1970 F 54 From: Forrest Perdue MD PCP: LEILANI LimC Status: REG CLI Study:Kidney and Bladder Date of Exam: 0 09/22/24 Exam# [id number] Ordering Dr: Anne Ridley MD PROCEDURE: KIDNEY AND BLADDER REASON FOR EXAM: UTI TECHNIQUE: Bilateral renal ultrasound. COMPARISON: None. FINDINGS: The kidneys appear within limits for size and echogenicity without hydronephrosis, stones or perinephric edema identified. The right kidney measures 11 x 4.7 x 4.6 cm with a cortical thickness of 1.1 cm. The left kidney measures 11.8 x 3.8 x 4.5 cm with a cortical thickness of 1.2 cm. Bladder volume 101 cc. Wall measures 3 mm. A right or left ureteral jet is notseen during imaging. No free fluid seen. US/Kidney and Bladder IMPRESSION: Kidneys appear within limits. Bladder volume 101 cc. Wall within limits at 3 mm. A right or left ureteral jet is not seen during imaging. Reading Location: [id number] CC: ENGINEERING AIDE-C Charlee Humphries; Dr. Anne Ridley MD ~ Product Safety Expert: Signed [facility] 08-17-2024 Note HNO ID: [id number] Author: MILLICENT SOL PA-C Service: ? Author Type: Physician Data Communications Engineer Type: Progress Notes Filed: 08/17/2024 07:39 Note Text: This note was created using [employer]. Subjective Ling Dias is a 54 year old female. Patient is a 54-year-old female who complains of dysuria, hematuria, urinary urgency and frequency that she has been experiencing for approximately the past 12 hours. Patient reports no fever, chills, flank pain, nausea or other symptoms. Patient has a history of urinary tract infection and states that her current symptoms are consistent with same. Patient reports that she believes she has had 6 episodes of urinary tract infection over the past 1-1/2 years. Review of Systems Genitourinary: Positive for dysuria, frequency, hematuria and urgency. All other systems reviewed and are negative. Objective BP 132/80 Pulse 90 Temp 36.6 ?C (97.8 ?F) (Tympanic) Resp 18 Wt 120.5 kg (265 lb 10.5 oz) LMP (LMP Unknown) SpO2 99% BMI 40.39 kg/m? Physical Exam Vitals and nursing note reviewed. Constitutional: Appearance: Normal appearance. She is normal weight. HENT: Head: Normocephalic and atraumatic. Right Ear: External ear normal. Left Ear: External ear normal. Nose: Nose normal. Mouth/Throat: Mouth: Mucous membranes are moist. Pharynx: Oropharynx is clear. Eyes: Extraocular Movements: Extraocular movements intact. Conjunctiva/sclera: Conjunctivae normal. Pupils: Pupils are equal, round, and reactive to light. Cardiovascular: Rate and Rhythm: Normal rate. Pulses: Normal pulses. Heart sounds: Normal heart sounds. Pulmonary: Effort: Pulmonary effort is normal. Breath sounds: Normal breath sounds. Abdominal: General: Abdomen is flat. Palpations: Abdomen is soft. Musculoskeletal: Cervical back: Normal range of motion and neck supple. Skin: General: Skin is warm and dry. Capillary Refill: Capillary refill takes less than 2 seconds. Neurological: General: No focal deficit present. Mental Status: She is alert and oriented to person, place, and time. Psychiatric: Mood and Affect: Mood normal. Behavior: Behavior normal. Thought Content: Thought content normal. Judgment: Judgment normal. Assessment and Plan Physical exam findings as noted above. Urinalysis shows large leukocyte esterase with nitrite, protein and large blood. Urine culture was ordered. Patient was provided with prescriptions for Keflex 500 mg and Pyridium 100 mg. Patient was advised that results of the urine culture will be available in 2 days and she will be contacted if there is a need to change her medication based on the sensitivity report. Patient verbalizes clear understanding of the above instructions. CLINICAL IMPRESSION: Acute UTI ASSESSMENT/PLAN: 1. Urinary frequency - ICD9: 788.41, ICD10: R35.0 (primary diagnosis) - UA DIP, URINE (POC) - BACTERIAL CULTURE, URINE 2. Acute UTI - ICD9: 599.0, ICD10: N39.0 - BACTERIAL CULTURE, URINE - CEPHALEXIN 500 MG CAPSULE - PHENAZOPYRIDINE 100 MG TABLET Millicent Sol PA-C [facility] 08-17-2024 History of Present illness Narrative This note was created using [employer]. Subjective Ling Dias is a 54 year old female. Patient is a 54-year-old female who complains of dysuria, hematuria, urinary urgency and frequency that she has been experiencing for approximately the past 12 hours. Patient reports no fever, chills, flank pain, nausea or other symptoms. Patient has a history of urinary tract infection and states that her current symptoms are consistent with same. Patient reports that she believes she has had 6 episodes of urinary tract infection over the past 1-1/2 years. Review of Systems Genitourinary: Positive for dysuria, frequency, hematuria and urgency. All other systems reviewed and are negative. Objective BP 132/80 Pulse 90 Temp 36.6 C (97.8 F) (Tympanic) Resp 18 Wt 120.5 kg (265 lb 10.5 oz) LMP (LMP Unknown) SpO2 99% BMI 40.39 kg/m Physical Exam Vitals and nursing note reviewed. Constitutional: Appearance: Normal appearance. She is normal weight. HENT: Head: Normocephalic and atraumatic. Right Ear: External ear normal. Left Ear: External ear normal. Nose: Nose normal. Mouth/Throat: Mouth: Mucous membranes are moist. Pharynx: Oropharynx is clear. Eyes: Extraocular Movements: Extraocular movements intact. Conjunctiva/sclera: Conjunctivae normal. Pupils: Pupils are equal, round, and reactive to light. Cardiovascular: Rate and Rhythm: Normal rate. Pulses: Normal pulses. Heart sounds: Normal heart sounds. Pulmonary: Effort: Pulmonary effort is normal. Breath sounds: Normal breath sounds. Abdominal: General: Abdomen is flat. Palpations: Abdomen is soft. Musculoskeletal: Cervical back: Normal range of motion and neck supple. Skin: General: Skin is warm and dry. Capillary Refill: Capillary refill takes less than 2 seconds. Neurological: General: No focal deficit present. Mental Status: She is alert and oriented to person, place, and time. Psychiatric: Mood and Affect: Mood normal. Behavior: Behavior normal. Thought Content: Thought content normal. Judgment: Judgment normal. Assessment and Plan Physical exam findings as noted above. Urinalysis shows large leukocyte esterase with nitrite, protein and large blood. Urine culture was ordered. Patient was provided with prescriptions for Keflex 500 mg and Pyridium 100 mg. Patient was advised that results of the urine culture will be available in 2 days and she will be contacted if there is a need to change her medication based on the sensitivity report. Patient verbalizes clear understanding of the above instructions. CLINICAL IMPRESSION: Acute UTI ASSESSMENT/PLAN: 1. Urinary frequency - ICD9: 788.41, ICD10: R35.0 (primary diagnosis) - UA DIP, URINE (POC) - BACTERIAL CULTURE, URINE 2. Acute UTI - ICD9: 599.0, ICD10: N39.0 - BACTERIAL CULTURE, URINE - CEPHALEXIN 500 MG CAPSULE - PHENAZOPYRIDINE 100 MG TABLET Millicent Sol PA-C documented in this encounter [facility] 06-24-2024 History and physical note PROCEDURAL SEDATION HISTORY AND PHYSICAL EXAM SERVICE DATE: 06/24/2024 SERVICE TIME: 12:15 PM Subjective HPI: This is a 54 year old female who presents for colonoscopy PAST ANESTHESIA HISTORY: No history of adverse event PAST MEDICAL HISTORY Diagnosis Date COVID-19 De Quervain's disease (tenosynovitis) Depression Dermatitis Elevated LFTs CHAYO (generalized anxiety disorder) Gallbladder sludge GERD (gastroesophageal reflux disease) History of endometriosis Hyperlipidemia Hypertension Hypothyroidism Increased BMI Insomnia Pars defect of lumbar spine Renal insufficiency Seasonal allergies Vitamin D deficiency PAST SURGICAL HISTORY Procedure Laterality Date DELIVERY ONLY , low cervical, X-2 ESSURE 05/13/2010 Dr Yoder HYSTEROSCOPY, DIAGNOSTIC (SEPARATE 05/18/2019 INSERT INTRAUTERINE DEVICE 03/13/2005 Mirena PAST SURGICAL HISTORY OF BONE RECONSTRUCTION RT. FOOT PAST SURGICAL HISTORY OF 07/08/2006 Bone reconstruction on Left foot. Prior to Admission medications as of 06/24/24 1018 Medication Sig Last Dose Taking cholecalciferol, Vitamin D3, (VITAMIN D3) 1,250 mcg (50,000 unit) cap capsule Take 50,000 Units by mouth once every month. Past Week Yes amLODIPine (NORVASC) 5 mg tablet Take 5 mg by mouth once daily. 06/24/2024 Yes sertraline (ZOLOFT) 50 mg tablet Take 50 mg by mouth once daily. 06/24/2024 Yes losartan (COZAAR) 100 mg tablet Take 100 mg by mouth once daily. 06/24/2024 Yes omeprazole (PRILOSEC) 40 mg capsule Take 40 mg by mouth once daily. 06/24/2024 Yes levothyroxine (LEVOXYL) 50 mcg tablet Take 50 mcg by mouth daily before breakfast. 06/24/2024 Yes venlafaxine ER (EFFEXOR XR) 150 mg 24 hr capsule Take 1 capsule by mouth once daily. 06/24/2024 Yes acetaminophen 325 mg cap Take 2 capsules by mouth every 6 hours as needed for pain. busPIRone (BUSPAR) 10 mg tablet Take 10 mg by mouth three times a day as needed (anxiety). meclizine (ANTIVERT) 25 mg tab Take 25 mg by mouth three times a day as needed (vertigo). ALLERGIES No Known Allergies Objective PHYSICAL EXAM: The remainder of the physical exam is noncontributory. AIRWAY: Airway Visualization of Uvula: Yes Mouth opening greater than 2 fingerbreadths: Yes Neck Full Range of Motion: Yes LUNGS: Lungs clear to auscultation CARDIAC: Regular rhythm,Regular rate Assessment/Plan ASA Class: ASA Class: Patient with mild systemic disease Active Problems: * No active hospital problems. * Resolved Problems: * No resolved hospital problems. * Exogenous Class 2 Obesity Medication and Non-Pharmacologic VTE Prophylaxis/Anticoagulants VTE Prophylaxis: NA Provisional Diagnosis/Treatment Plan: Colonoscopy with possible biopsy Sedation Goal: Anesthesia (MAC) SIGNATURE: Fredo Garcia DO PATIENT NAME: Ling Dias DATE: June 24, 2024 TIME: 12:14 PM [facility] 06-24-2024 History and physical note PROCEDURAL SEDATION HISTORY AND PHYSICAL EXAM SERVICE DATE: 06/24/2024 SERVICE TIME: 12:15 PM Subjective HPI: This is a 54 year old female who presents for colonoscopy PAST ANESTHESIA HISTORY: No history of adverse event PAST MEDICAL HISTORY Diagnosis Date COVID-19 De Quervain's disease (tenosynovitis) Depression Dermatitis Elevated LFTs CHAYO (generalized anxiety disorder) Gallbladder sludge GERD (gastroesophageal reflux disease) History of endometriosis Hyperlipidemia Hypertension Hypothyroidism Increased BMI Insomnia Pars defect of lumbar spine Renal insufficiency Seasonal allergies Vitamin D deficiency PAST SURGICAL HISTORY Procedure Laterality Date DELIVERY ONLY , low cervical, X-2 ESSURE 05/13/2010 Dr Yoder HYSTEROSCOPY, DIAGNOSTIC (SEPARATE 05/18/2019 INSERT INTRAUTERINE DEVICE 03/13/2005 Mirena PAST SURGICAL HISTORY OF BONE RECONSTRUCTION RT. FOOT PAST SURGICAL HISTORY OF 07/08/2006 Bone reconstruction on Left foot. Prior to Admission medications as of 06/24/24 1018 Medication Sig Last Dose Taking cholecalciferol, Vitamin D3, (VITAMIN D3) 1,250 mcg (50,000 unit) cap capsule Take 50,000 Units by mouth once every month. Past Week Yes amLODIPine (NORVASC) 5 mg tablet Take 5 mg by mouth once daily. 06/24/2024 Yes sertraline (ZOLOFT) 50 mg tablet Take 50 mg by mouth once daily. 06/24/2024 Yes losartan (COZAAR) 100 mg tablet Take 100 mg by mouth once daily. 06/24/2024 Yes omeprazole (PRILOSEC) 40 mg capsule Take 40 mg by mouth once daily. 06/24/2024 Yes levothyroxine (LEVOXYL) 50 mcg tablet Take 50 mcg by mouth daily before breakfast. 06/24/2024 Yes venlafaxine ER (EFFEXOR XR) 150 mg 24 hr capsule Take 1 capsule by mouth once daily. 06/24/2024 Yes acetaminophen 325 mg cap Take 2 capsules by mouth every 6 hours as needed for pain. busPIRone (BUSPAR) 10 mg tablet Take 10 mg by mouth three times a day as needed (anxiety). meclizine (ANTIVERT) 25 mg tab Take 25 mg by mouth three times a day as needed (vertigo). ALLERGIES No Known Allergies Objective PHYSICAL EXAM: The remainder of the physical exam is noncontributory. AIRWAY: Airway Visualization of Uvula: Yes Mouth opening greater than 2 fingerbreadths: Yes Neck Full Range of Motion: Yes LUNGS: Lungs clear to auscultation CARDIAC: Regular rhythm,Regular rate Assessment/Plan ASA Class: ASA Class: Patient with mild systemic disease Active Problems: * No active hospital problems. * Resolved Problems: * No resolved hospital problems. * Exogenous Class 2 Obesity Medication and Non-Pharmacologic VTE Prophylaxis/Anticoagulants VTE Prophylaxis: NA Provisional Diagnosis/Treatment Plan: Colonoscopy with possible biopsy Sedation Goal: Anesthesia (MAC) SIGNATURE: Fredo Garcia DO PATIENT NAME: Ling Dias DATE: June 24, 2024 TIME: 12:14 PM documented in this encounter [facility] 06-11-2024 Note [facility] Medical Records Department [address] [place] [address] Discharge Summary 06/11/24 1415 MR#: [id number] Acct: [id number] Name: LING DIAS Rep #: [id number] : 1970 54 From: Ghanshyam Puente MD PCP: NOAH Lim Status:DIS IN [id number] Prov[facility] Date of Admission: 06/09/24 Primary Care Physician: NOAH Lim Reason For Visit: ABDOMINAL PAIN Diagnosis Discharge Diagnosis (1) HTN (hypertension): Status: Chronic Code(s): I10 - Essential (primary) hypertension Medications at Discharge Home Medications levothyroxine 25 mcg tablet 50 mcg PO DAILY thyroid 04/19/20 amlodipine 5 mg tablet 5 mg PO DAILY bp 06/09/24 buspirone 5 mg tablet 10 mg PO QHS PRN sleep 06/09/24 guaifenesin 600 mg tablet, extended release 12 hr 600 mg PO BID sinus infection 06/09/24 losartan 100 mg tablet 100 mg PO DAILY bp 06/09/24 meclizine 25 mg chewable tablet (Antivert) 25 mg PO DAILY PRN dizziness 06/09/24 omeprazole 40 mg capsule,delayed release 40 mg PO DAILY gerd 06/09/24 sertraline 25 mg tablet 50 mg PO DAILY mood 06/09/24 venlafaxine 150 mg capsule,extended release 24 hr 150 mg PO DAILY mood 06/09/24 Hospital Course Operations None Procedures None Summary of Care Provided Minutes Spent on Discharge: 36 Hospital Course: Per HPI: LING DIAS, is a 54 F with past medical history of HTN, hypothyroidism, GERD who presents to the ED with concerns regarding abdominal pain The pain started this morning, more in the right upper quadrant not radiating to the back, at the initiation it 8-10/10 in intensity, no associated nausea or vomiting. Does not smoke, no history of alcohol use, no recent medication changes. Her home medications include buspirone, hydrochlorothiazide, levothyroxine, lisinopril, sertraline, venlafaxine. She had a similar episode 1 year back, she feels it she was diagnosed with pancreatitis at the time too At time of presentation BP 132/82, respiratory rate 14, oxygen 96 WBC 5.7, hemoglobin 14, platelet 216, chloride 109, AST 77, ALT 73, alk phos 156, lipase 02/14/1990 urine protein 15 leukoesterase positive WBCs 0-5 Ultrasound abdomen showed no gallstone no gallbladder wall thickening normal scan. In the ED she received famotidine, morphine sulfate, ondansetron, 1 L of fluid. Hospital Course: 1. Acute pancreatitis with elevated LFTs???54-year-old female presented to the hospital with abdominal pain consistent with pancreatitis on biochemical analysis with lipase. Her LFTs have also been rising while here though her pain has been improving. She was started on a low-fat diet which she was able to tolerate without any pain whatsoever. Her triglycerides were checked and these were normal and a right upper quadrant ultrasound showed a normal liver with normal common bile duct and no gallstones. Unclear as to the etiology of her LFTs, she denies any drinking and she does not do any drugs or any abnormal medications at baseline. She was started on Augmentin for sinus infection that is another potential medication because of her LFTs rising she has not been taking it here in the hospital and I recommended she discontinue on discharge. I discussed with her the plan for discharge today she expressed understanding the risk benefits going home and would like to go home today. I do recommend that she follow-up with her PCP in 3 to 5 days for outpatient lab work and to continue monitoring her condition. We discussed indications to return to the hospital including increasing abdominal pain. 2. Essential hypertension, GERD, anxiety, depression, hypothyroidism are all chronic medical conditions which complicate her care. Her home medications were continued where appropriate Physical Exam Narrative General: Alert, Oriented x3, Cooperative, No apparent distress HEENT: Atraumatic, PERRLA, EOMI, Normocephalic Oral: Moist Mucosa Neck: Supple, No JVD Lungs: Clear to auscultation, Normal air movement, No rhonchi, No wheeze, No rales Cardiovascular: Regular rate, Regular Rhythm, Normal S1, Normal S2, No murmurs Abdomen: Soft, minimally tender, Non-Distended, No Hepato-splenomegaly Extremities: No edema, Capillary Refill Less than 3 Seconds Skin: No rashes, No breakdown Musculoskeletal: No Tenderness to Palpation of Joints or Extremities Neurological: No focal neurological deficits, Motor Exam 5/5 strength throughout, Sensory exam intact to light touch and pain Psych/Mental Status: Normal Affect, Appropriate Weight / BMI Weight Weight: 265 lb 6.985 oz Body Mass Index (BMI) 40.4 ABG / Lab / Microbiology Data 06/11/24 06:33 06/11/24 06:33 Laboratory: Laboratory Results - last 24 hr 06/11/24 06:33: WBC 4.3 L, RBC 4.70, Hgb 12.7, Hct 38.4, MCV 81.7, MCH 27.0, MCHC 33.1, RDW Std Hilda (more content not included)... [facility] 06-09-2024 Evaluation note Diagnosis Onset Date Resolution HTN (hypertension) resolved Novemb er 2023 4:55pm [facility] Work Phone: 1(952) 813-552411-11-2024 NoteHNO ID: [id number] Author: MIN HAMEED APRN.DOPE POURER Service: ? Author Type: Nurse Practitioner Type: Progress Notes Filed: 05/23/2024 17:01 Note Text: Subjective HPI Nontoxic-appearing female presents urgent care chief complaint possible UTI. Duration of symptoms 1 day. Associated symptoms dysuria frequency urgency. History of UTIs this feels similar. Was seen at the end of April. Urine culture mixed microbes. Presents today for evaluation. Denies OTC medications. Denies any urological abnormalities. Denies any fevers nausea vomiting abdominal pain vaginal discharge itching or flank pain. Past medical history prescription medications allergies reviewed. .Patient presents with: Urinary Problem: Frequency, urgency, burning started this morning PAST MEDICAL HISTORY Diagnosis Date COVID-19 De Quervain's disease (tenosynovitis) Depression Dermatitis Elevated LFTs CHAYO (generalized anxiety disorder) Gallbladder sludge GERD (gastroesophageal reflux disease) History of endometriosis Hyperlipidemia Hypertension Hypothyroidism Increased BMI Insomnia Pars defect of lumbar spine Renal insufficiency Seasonal allergies Vitamin D deficiency PAST SURGICAL HISTORY Procedure Laterality Date DELIVERY ONLY , low cervical, X-2 ESSURE 05/13/2010 Dr Yoder HYSTEROSCOPY, DIAGNOSTIC (SEPARATE 05/18/2019 INSERT INTRAUTERINE DEVICE 03/13/2005 Mirena PAST SURGICAL HISTORY OF BONE RECONSTRUCTION RT. FOOT PAST SURGICAL HISTORY OF 07/08/2006 Bone reconstruction on Left foot. ALLERGIES Patient has no known allergies. MEDICATIONS cholecalciferol, Vitamin D3, (VITAMIN D3) 1,250 mcg (50,000 unit) cap capsule Take 50,000 Units by mouth once every month. acetaminophen 325 mg cap Take 2 capsules by mouth every 6 hours as needed for pain. amLODIPine (NORVASC) 5 mg tablet Take 5 mg by mouth once daily. sertraline (ZOLOFT) 50 mg tablet Take 50 mg by mouth once daily. losartan (COZAAR) 100 mg tablet Take 100 mg by mouth once daily. omeprazole (PRILOSEC) 40 mg capsule Take 40 mg by mouth once daily. levothyroxine (LEVOXYL) 50 mcg tablet Take 50 mcg by mouth daily before breakfast. busPIRone (BUSPAR) 10 mg tablet Take 10 mg by mouth three times a day as needed (anxiety). meclizine (ANTIVERT) 25 mg tab Take 25 mg by mouth three times a day as needed (vertigo). venlafaxine ER (EFFEXOR XR) 150 mg 24 hr capsule Take 1 capsule by mouth once daily. FAMILY HISTORY Problem Relation Age of Onset Breast Cancer Mother Dx at 42 Hypertension Mother Heart Father open heart surgery Hypertension Father Alzheimer's Disease Father Hypertension Brother X-2 Hypertension Maternal Aunt Breast Cancer Maternal Aunt 78 Social History Tobacco Use Smoking status: Never Smokeless tobacco: Never Substance Use Topics Alcohol use: Yes Comment: very rarely Drug use: No BP 140/92 Pulse 95 Temp 36.4 ?C (97.5 ?F) Resp 20 Wt 121.9 kg (268 lb 11.9 oz) LMP (LMP Unknown) SpO2 98% BMI 40.86 kg/m? Review of Systems Constitutional: Negative for chills, fever and malaise/fatigue. Cardiovascular: Negative for chest pain. Gastrointestinal: Negative for abdominal pain, constipation, diarrhea, nausea and vomiting. Genitourinary: Positive for dysuria, frequency and urgency. Negative for flank pain and hematuria. Musculoskeletal: Negative for myalgias. Objective Physical Exam Vitals and nursing note reviewed. Constitutional: General: She is not in acute distress. Appearance: She is not diaphoretic. HENT: Head: Jaw: No trismus. Right Ear: Hearing normal. No decreased hearing noted. No drainage, swelling or tenderness. Tympanic membrane is not perforated, erythematous or bulging. Left Ear: Hearing normal. No decreased hearing noted. No drainage, swelling or tenderness. Tympanic membrane is not perforated, erythematous or bulging. Mouth/Throat: Pharynx: Uvula midline. No uvula swelling. Tonsils: No tonsillar abscesses. Cardiovascular: Rate and Rhythm: Normal rate and regular rhythm. Pulses: Normal pulses. Pulmonary: Effort: Pulmonary effort is normal. No respiratory distress. Breath sounds: Normal breath sounds. Chest: Chest wall: No tenderness. Abdominal: General: Bowel sounds are normal. There is no distension. Palpations: Abdomen is soft. Abdomen is not rigid. Tenderness: There is no abdominal tenderness. There is no right CVA tenderness, left CVA tenderness, guarding or rebound. Negative signs include Cruz's sign and McBurney's sign. Musculoskeletal: General: No tenderness. Lymphadenopathy: Head: Right side of head: No submental, submandibular, tonsillar, preauricular, posterior auricular or occipital adenopathy. Left side of head: No submental, submandibular, tonsillar, preauricular, posterior auricular or occipital adenopathy. Cervical: Right cervical: No superficial or posterior (more content not included)... [facility]11-11-2024 History of Present illness Narrative* Min Hameed, [facility] - 05/23/2024 4:53 PM EST Subjective HPI Nontoxic-appearing female presents urgent care chief complaint possible UTI. Duration of symptoms 1day. Associated symptoms dysuria frequency urgency. History of UTIs this feels similar. Was seen atthe end of April. Urine culture mixed microbes. Presents today for evaluation. Denies OTC medications. Denies any urological abnormalities. Denies any fevers nausea vomiting abdominal pain vaginal discharge itching or flank pain. Past medical history prescription medications allergies reviewed. .Patient presents with: Urinary Problem: Frequency, urgency, burning started this morning PAST MEDICAL HISTORY Diagnosis Date COVID-19 De Quervain's disease (tenosynovitis) Depression Dermatitis Elevated LFTs CHAYO (generalized anxiety disorder) Gallbladder sludge GERD (gastroesophageal reflux disease) History of endometriosis Hyperlipidemia Hypertension Hypothyroidism Increased BMI Insomnia Pars defect of lumbar spine Renal insufficiency Seasonal allergies Vitamin D deficiency PAST SURGICAL HISTORY Procedure Laterality Date DELIVERY ONLY , low cervical, X-2 ESSURE 05/13/2010 Dr Yoder HYSTEROSCOPY, DIAGNOSTIC (SEPARATE 05/18/2019 INSERT INTRAUTERINE DEVICE 03/13/2005 Mirena PAST SURGICAL HISTORY OF BONE RECONSTRUCTION RT. FOOT PAST SURGICAL HISTORY OF 07/08/2006 Bone reconstruction on Left foot. ALLERGIES Patient has no known allergies. MEDICATIONS cholecalciferol, Vitamin D3, (VITAMIN D3) 1,250 mcg (50,000 unit) cap capsule Take 50,000 Units by mouth once every month. acetaminophen 325 mg cap Take 2 capsules by mouth every 6 hours as needed for pain. amLODIPine (NORVASC) 5 mg tablet Take 5 mg by mouth once daily. sertraline (ZOLOFT) 50 mg tablet Take 50 mg by mouth once daily. losartan (COZAAR) 100 mg tablet Take 100 mg by mouth once daily. omeprazole (PRILOSEC) 40 mg capsule Take 40 mg by mouth once daily. levothyroxine (LEVOXYL) 50 mcg tablet Take 50 mcg by mouth daily before breakfast. busPIRone (BUSPAR) 10 mg tablet Take 10 mg by mouth three times a day as needed (anxiety). meclizine (ANTIVERT) 25 mg tab Take 25 mg by mouth three times a day as needed (vertigo). venlafaxine ER (EFFEXOR XR) 150 mg 24 hr capsule Take 1 capsule by mouth once daily. FAMILY HISTORY Problem Relation Age of Onset Breast Cancer Mother Dx at 42 Hypertension Mother Heart Father open heart surgery Hypertension Father Alzheimer's Disease Father Hypertension Brother X-2 Hypertension Maternal Aunt Breast Cancer Maternal Aunt 78 Social History Tobacco Use Smoking status: Never Smokeless tobacco: Never Substance Use Topics Alcohol use: Yes Comment: very rarely Drug use: No BP 140/92 Pulse 95 Temp 36.4 C (97.5 F) Resp 20 Wt 121.9 kg (268 lb 11.9 oz) LMP (LMP Unknown) SpO2 98% BMI 40.86 kg/m Review of Systems Constitutional: Negative for chills, fever and malaise/fatigue. Cardiovascular: Negative for chest pain. Gastrointestinal: Negative for abdominal pain, constipation, diarrhea, nausea and vomiting. Genitourinary: Positive for dysuria, frequency and urgency. Negative for flank pain and hematuria. Musculoskeletal: Negative for myalgias. Objective Physical Exam Vitals and nursing note reviewed. Constitutional: General: She is not in acute distress. Appearance: She is not diaphoretic. HENT: Head: Jaw: No trismus. Right Ear: Hearing normal. No decreased hearing noted. No drainage, swelling or tenderness. Tympanic membrane is not perforated, erythematous or bulging. Left Ear: Hearing normal. No decreased hearing noted. No drainage, swelling or tenderness. Tympanicmembrane is not perforated, erythematous or bulging. Mouth/Throat: Pharynx: Uvula midline. No uvula swelling. Tonsils: No tonsillar abscesses. Cardiovascular: Rate and Rhythm: Normal rate and regular rhythm. Pulses: Normal pulses. Pulmonary: Effort: Pulmonary effort is normal. No respiratory distress. Breath sounds: Normal breath sounds. Chest: Chest wall: No tenderness. Abdominal: General: Bowel sounds are normal. There is no distension. Palpations: Abdomen is soft. Abdomen is not rigid. Tenderness: There is no abdominal tenderness. There is no right CVA tenderness, left CVA tenderness, guarding or rebound. Negative signs include Cruz's sign and McBurney's sign. Musculoskeletal: General: No tenderness. Lymphadenopathy: Head: Right side of head: No submental, submandibular, tonsillar, preauricular, posterior auricular or occipital adenopathy. Left side of head: No submental, submandibular, tonsillar, preauricular, posterior auricular or occipital adenopathy. Cervical: Right cervical: No superficial or posterior cervical adenopathy. Left cervical: No superficial or posterior cervical adenopathy. Skin: General: Skin is warm and dry. Findings: No rash. Neurological: Mental Status: She is alert and oriented to person, place, and time. ASSESSMENT/PLAN: 1. Urinary frequency - ICD9: 788.41, ICD10: R35.0 - UA DIP, URINE (POC) - URINE CULTURE Urine positive for leukocytes nitrites and blood. Treat for acute cystitis. Placed on Keflex. Treataccording culture results. Patient was educated on supportive therapies. Patient will follow up with primary care provider as needed. Patient was instructed to immediately proceed to emergency room for any new, worsening, or symptoms lasting longer than anticipated. The patient's clinical presentation is otherwise unremarkable at this time. Based on exam and clinical finding, the patient is stable for discharge. Plan of care was discussed with patient. Patient verbalizes understanding and agrees to plan of care. This note was generated using [employer] software. It may contain errors in wording, punctuation, or spelling. Min Hameed APRN.DOPE POURER documented [facility] Tele[facility] encounter Note * Telephone Encounter - Brooke Griggs MA - 05/04/2024 7:23 AM EDT Patient given results and verbalized understanding of instructions given. Brooke Griggs MA [facility]10-23-[facility] Miscellaneous Notes* Telephone Encounter - Brooke Griggs MA - 05/04/2024 7:23 AM EDT Patient given results and verbalized understanding of instructions given. Brooke Griggs MA * Telephone Encounter - Maximino Julian MD - 05/04/2024 7:10 AM EDT Urine culture did not show a clear infection. Finish antibiotic and follow up with PCP, urology, orGYN for recheck. documented [facility] Telephone encounter Note * Telephone Encounter - Maximino Julian MD - 05/04/2024 7:10 AM EDT Urine culture did not show a clear infection. Finish antibiotic and follow up with PCP, urology, orGYN for recheck. [facility]10-[facility]24 NoteHNO ID: [id number] Author: FABRICIO GARCIA PA Service: ? Author Type: Physician Data Communications Engineer Type: Progress Notes Filed: 05/02/2024 16:47 Note Text: This note was created using [employer] AG[employer]. Subjective Ling Dias is a 53 year old female. HPI 53-year-old female presents for UTI symptoms. Patient started getting burning with urination today. No blood in the urine. No urgency. She has a little bit frequency. No abdominal pain, back pain, fevers, vomiting. She denies any vaginal discharge or itching. She has had UTIs in the past, her last 1 was about 5 months ago. PAST MEDICAL HISTORY Diagnosis Date COVID-19 De Quervain's disease (tenosynovitis) Depression Dermatitis Elevated LFTs CHAYO (generalized anxiety disorder) Gallbladder sludge GERD (gastroesophageal reflux disease) History of endometriosis Hyperlipidemia Hypertension Hypothyroidism Increased BMI Insomnia Pars defect of lumbar spine Renal insufficiency Seasonal allergies Vitamin D deficiency PAST SURGICAL HISTORY Procedure Laterality Date DELIVERY ONLY , low cervical, X-2 ESSURE 05/13/2010 Dr Yoder HYSTEROSCOPY, DIAGNOSTIC (SEPARATE 05/18/2019 INSERT INTRAUTERINE DEVICE 03/13/2005 Mirena PAST SURGICAL HISTORY OF BONE RECONSTRUCTION RT. FOOT PAST SURGICAL HISTORY OF 07/08/2006 Bone reconstruction on Left foot. ALLERGIES Patient has no known allergies. MEDICATIONS cholecalciferol, Vitamin D3, (VITAMIN D3) 1,250 mcg (50,000 unit) cap capsule Take 50,000 Units by mouth once every month. acetaminophen 325 mg cap Take 2 capsules by mouth every 6 hours as needed for pain. amLODIPine (NORVASC) 5 mg tablet Take 5 mg by mouth once daily. sertraline (ZOLOFT) 50 mg tablet Take 50 mg by mouth once daily. losartan (COZAAR) 100 mg tablet Take 100 mg by mouth once daily. omeprazole (PRILOSEC) 40 mg capsule Take 40 mg by mouth once daily. levothyroxine (LEVOXYL) 50 mcg tablet Take 50 mcg by mouth daily before breakfast. busPIRone (BUSPAR) 10 mg tablet Take 10 mg by mouth three times a day as needed (anxiety). meclizine (ANTIVERT) 25 mg tab Take 25 mg by mouth three times a day as needed (vertigo). venlafaxine ER (EFFEXOR XR) 150 mg 24 hr capsule Take 1 capsule by mouth once daily. nitrofurantoin monohydrate and macrocrystal (MACROBID) 100 mg capsule Take 1 capsule by mouth two times a day for 5 days. FAMILY HISTORY Problem Relation Age of Onset Breast Cancer Mother Dx at 42 Hypertension Mother Heart Father open heart surgery Hypertension Father Alzheimer's Disease Father Hypertension Brother X-2 Hypertension Maternal Aunt Breast Cancer Maternal Aunt 78 Social History Tobacco Use Smoking status: Never Smokeless tobacco: Never Substance Use Topics Alcohol use: Yes Comment: very rarely Drug use: No Review of Systems Constitutional: Negative for chills and fever. HENT: Negative for congestion, ear pain and sore throat. Respiratory: Negative for cough and shortness of breath. Cardiovascular: Negative for chest pain. Gastrointestinal: Negative for abdominal pain, diarrhea and vomiting. Genitourinary: Positive for dysuria and frequency. Negative for hematuria and urgency. Objective BP 122/70 Pulse 104 Temp 36.7 ?C (98 ?F) Resp 16 Wt 122.2 kg (269 lb 6.4 oz) LMP (LMP Unknown) SpO2 98% BMI 40.96 kg/m? Physical Exam Vitals and nursing note reviewed. Constitutional: General: She is not in acute distress. Appearance: Normal appearance. She is not toxic-appearing. HENT: Mouth/Throat: Mouth: Mucous membranes are moist. Eyes: Conjunctiva/sclera: Conjunctivae normal. Cardiovascular: Rate and Rhythm: Normal rate and regular rhythm. Pulmonary: Effort: Pulmonary effort is normal. Breath sounds: Normal breath sounds. Abdominal: General: Abdomen is flat. Palpations: Abdomen is soft. Tenderness: There is no abdominal tenderness. There is no right CVA tenderness, left CVA tenderness, guarding or rebound. Skin: General: Skin is warm and dry. Neurological: Mental Status: She is alert. Assessment and Plan ASSESSMENT/PLAN: 1. Acute UTI - ICD9: 599.0, ICD10: N39.0 (primary diagnosis) acute - UA positive for michell esterase, hematuria, and proteinuria - Send urine for culture -Reviewed prior urine culture from November, grew E. coli. Susceptible to Macrobid - Begin treatment with Macrobid 100 mg BID for 5 days - Patient education for prevention given 2. Burning with urination - ICD9: 788.1, ICD10: R30.0 - UA DIP, URINE (POC) - URINE CULTURE Diagnosis and treatment plan were discussed and questions were answered to the patient's satisfaction. Pt acknowledged understanding of concepts and follow up plan. Specific signs and symptoms that would indicate the need for higher level of care were discussed in detail warranting prompt ER evaluation. Fabricio Garcia, [facility]10-21-2024 History of Present illness Narrative* Fabricio Garcia, PA - 05/02/2024 4:45 PM EDT This note was created using [employer]. Subjective Ling Dias is a 53 year old female. HPI 53-year-old female presents for UTI symptoms. Patient started getting burning with urination today. No blood in the urine. No urgency. She has a little bit frequency. No abdominal pain, back pain, fevers, vomiting. She denies any vaginal discharge or itching. She has had UTIs in the past, her last 1 was about 5 months ago. PAST MEDICAL HISTORY Diagnosis Date COVID-19 De Quervain's disease (tenosynovitis) Depression Dermatitis Elevated LFTs CHAYO (generalized anxiety disorder) Gallbladder sludge GERD (gastroesophageal reflux disease) History of endometriosis Hyperlipidemia Hypertension Hypothyroidism Increased BMI Insomnia Pars defect of lumbar spine Renal insufficiency Seasonal allergies Vitamin D deficiency PAST SURGICAL HISTORY Procedure Laterality Date DELIVERY ONLY , low cervical, X-2 ESSURE 05/13/2010 Dr Yoder HYSTEROSCOPY, DIAGNOSTIC (SEPARATE 05/18/2019 INSERT INTRAUTERINE DEVICE 03/13/2005 Mirena PAST SURGICAL HISTORY OF BONE RECONSTRUCTION RT. FOOT PAST SURGICAL HISTORY OF 07/08/2006 Bone reconstruction on Left foot. ALLERGIES Patient has no known allergies. MEDICATIONS cholecalciferol, Vitamin D3, (VITAMIN D3) 1,250 mcg (50,000 unit) cap capsule Take 50,000 Units by mouth once every month. acetaminophen 325 mg cap Take 2 capsules by mouth every 6 hours as needed for pain. amLODIPine (NORVASC) 5 mg tablet Take 5 mg by mouth once daily. sertraline (ZOLOFT) 50 mg tablet Take 50 mg by mouth once daily. losartan (COZAAR) 100 mg tablet Take 100 mg by mouth once daily. omeprazole (PRILOSEC) 40 mg capsule Take 40 mg by mouth once daily. levothyroxine (LEVOXYL) 50 mcg tablet Take 50 mcg by mouth daily before breakfast. busPIRone (BUSPAR) 10 mg tablet Take 10 mg by mouth three times a day as needed (anxiety). meclizine (ANTIVERT) 25 mg tab Take 25 mg by mouth three times a day as needed (vertigo). venlafaxine ER (EFFEXOR XR) 150 mg 24 hr capsule Take 1 capsule by mouth once daily. nitrofurantoin monohydrate and macrocrystal (MACROBID) 100 mg capsule Take 1 capsule by mouth two times a day for 5 days. FAMILY HISTORY Problem Relation Age of Onset Breast Cancer Mother Dx at 42 Hypertension Mother Heart Father open heart surgery Hypertension Father Alzheimer's Disease Father Hypertension Brother X-2 Hypertension Maternal Aunt Breast Cancer Maternal Aunt 78 Social History Tobacco Use Smoking status: Never Smokeless tobacco: Never Substance Use Topics Alcohol use: Yes Comment: very rarely Drug use: No Review of Systems Constitutional: Negative for chills and fever. HENT: Negative for congestion, ear pain and sore throat. Respiratory: Negative for cough and shortness of breath. Cardiovascular: Negative for chest pain. Gastrointestinal: Negative for abdominal pain, diarrhea and vomiting. Genitourinary: Positive for dysuria and frequency. Negative for hematuria and urgency. Objective BP 122/70 Pulse 104 Temp 36.7 C (98 F) Resp 16 Wt 122.2 kg (269 lb 6.4 oz) LMP (LMP Unknown) SpO2 98% BMI 40.96 kg/m Physical Exam Vitals and nursing note reviewed. Constitutional: General: She is not in acute distress. Appearance: Normal appearance. She is not toxic-appearing. HENT: Mouth/Throat: Mouth: Mucous membranes are moist. Eyes: Conjunctiva/sclera: Conjunctivae normal. Cardiovascular: Rate and Rhythm: Normal rate and regular rhythm. Pulmonary: Effort: Pulmonary effort is normal. Breath sounds: Normal breath sounds. Abdominal: General: Abdomen is flat. Palpations: Abdomen is soft. Tenderness: There is no abdominal tenderness. There is no right CVA tenderness, left CVA tenderness, guarding or rebound. Skin: General: Skin is warm and dry. Neurological: Mental Status: She is alert. Assessment and Plan ASSESSMENT/PLAN: 1. Acute UTI - ICD9: 599.0, ICD10: N39.0 (primary diagnosis) acute - UA positive for michell esterase, hematuria, and proteinuria - Send urine for culture -Reviewed prior urine culture from November, grew E. coli. Susceptible to Macrobid - Begin treatment with Macrobid 100 mg BID for 5 days - Patient education for prevention given 2. Burning with urination - ICD9: 788.1, ICD10: R30.0 - UA DIP, URINE (POC) - URINE CULTURE Diagnosis and treatment plan were discussed and questions were answered to the patient's satisfaction. Pt acknowledged understanding of concepts and follow up plan. Specific signs and symptoms that would indicate the need for higher level of care were discussed in detail warranting prompt ER evaluation. RUMA Christianson documented in this encounterE[facility]09-[facility]24 Nurse Note* Monisah Brooks RN - 03/29/2024 12:31 PM EDT This Nurse reviewed and provided patient with copy of written instructions for colonoscopy with SuTab prep. Gave patient a coupon for [facility] for the medication, incase her insurance does not cover it. The patient verbalized understanding and was given a number for questions. Monisha Brooks RN [facility]09-17-[facility] Nurse Note* Monisha Brooks RN - 03/29/2024 12:31 PM EDT This Nurse reviewed and provided patient with copy of written instructions for colonoscopy with SuTab prep. Gave patient a coupon for [employer] for the medication, incase her insurance does not cover it. The patient verbalized understanding and was given a number for questions. Monisha Brooks RN documented in this encounterE[facility]09-17-2024 History of Present illness Narrative* Radha Navarro APRN.DOPE POURER - 03/29/2024 10:00 AM EDT HISTORY AND PHYSICAL Ling L Larissa : 1970 REFERRING PHYSICIAN: Charlee Humphries, [employer] [address] [facility] [id number] CHIEF COMPLAINT: Patient presents with: Consult: Colonoscopy consultation HPI: Ling is a 53 year old female referred for endoscopy. Ling notes due for colon cancer screening. Ling denies abdominal pain.. Ling denies diarrhea. Ling denies constipation. Ling denies a change in bowel habits. Ling denies melena. Ling denies bright red blood per rectum. Ling denies hemorrhoids. Ling notes heartburn. Well controlled with Prilosec daily Ling denies dysphagia. Ling denies a history of ulcers/ peptic ulcer disease. Denies family history of colon issues. Ling has not undergone prior endoscopy. Current Outpatient Medications Medication Sig cholecalciferol, Vitamin D3, (VITAMIN D3) 1,250 mcg (50,000 unit) cap capsule Take 50,000 Units by mouth once every month. acetaminophen 325 mg cap Take 2 capsules by mouth every 6 hours as needed for pain. amLODIPine (NORVASC) 5 mg tablet Take 5 mg by mouth once daily. sertraline (ZOLOFT) 50 mg tablet Take 50 mg by mouth once daily. losartan (COZAAR) 100 mg tablet Take 100 mg by mouth once daily. omeprazole (PRILOSEC) 40 mg capsule Take 40 mg by mouth once daily. levothyroxine (LEVOXYL) 50 mcg tablet Take 50 mcg by mouth daily before breakfast. busPIRone (BUSPAR) 10 mg tablet Take 10 mg by mouth three times a day as needed (anxiety). meclizine (ANTIVERT) 25 mg tab Take 25 mg by mouth three times a day as needed (vertigo). venlafaxine ER (EFFEXOR XR) 150 mg 24 hr capsule Take 1 capsule by mouth once daily. sod sulf-pot chloride-mag sulf (SUTAB) 1.479-0.188- 0.225 gram tab Take 12 tablets by mouth as directed for 2 days. Follow instructions that have been given to you by your provider's office. (Part 1,take 12 tablets. Part 2, take 12 tablets). No current facility-administered medications for this visit. ALLERGIES: Patient has no known allergies. PAST MEDICAL HISTORY Diagnosis Date COVID-19 De Quervain's disease (tenosynovitis) Depression Dermatitis Elevated LFTs CHAYO (generalized anxiety disorder) Gallbladder sludge GERD (gastroesophageal reflux disease) History of endometriosis Hyperlipidemia Hypertension Hypothyroidism Increased BMI Insomnia Pars defect of lumbar spine Renal insufficiency Seasonal allergies Vitamin D deficiency PAST SURGICAL HISTORY Procedure Laterality Date DELIVERY ONLY , low cervical, X-2 ESSURE 05/13/2010 Dr Yoder HYSTEROSCOPY, DIAGNOSTIC (SEPARATE 05/18/2019 INSERT INTRAUTERINE DEVICE 03/13/2005 Mirena PAST SURGICAL HISTORY OF BONE RECONSTRUCTION RT. FOOT PAST SURGICAL HISTORY OF 07/08/2006 Bone reconstruction on Left foot. FAMILY HISTORY Problem Relation Age of Onset Breast Cancer Mother Dx at 42 Hypertension Mother Heart Father open heart surgery Hypertension Father Alzheimer's Disease Father Hypertension Brother X-2 Hypertension Maternal Aunt Breast Cancer Maternal Aunt 78 Social History Tobacco Use Smoking status: Never Smokeless tobacco: Never Substance Use Topics Alcohol use: Yes Comment: very rarely Drug use: No REVIEW OF SYMPTOMS: REVIEW OF SYSTEMS: General: The patient denies fatigue, denies weight loss, denies weight gain, denies feeling hot, and feelings of cold. Eyes: The patient denies glaucoma, denies eye injury/surgery, denies glasses or contacts. Ear/Nose/Throat: The patient denies allergies, denies hayfever, denies ear infections, and denies bloody noses. Cardiovascular: The patient denies chest pain, denies heart disease, denies high blood pressure, denies high cholesterol, and denies poor circulation. Respiratory: The patient denies tuberculosis, denies pneumonia, denies frequent cough, denies shortness of breath, and denies coughing up blood. Gastrointestinal: The patient denies difficulty swallowing, + acid reflux, denies ulcers, denies jaundice/hepatitis, denies gallbladder problems, denies vomiting, denies black or tarry stools, denieshemorrhoids, denies bleeding from rectum, denies diverticulitis, denies constipation, denies diarrhea, denies loss of stool control, and denies hernias. Kidney/Bladder: The patient denies kidney stones, denies urine infections, and denies bloody urine. Skin: The patient denies a history of skin cancer, denies bleeding/changing moles, and denies a history of skin rash. Neurologic: The patient denies a history of epilepsy/convulsions, denies headaches, denies head/spinal injuries, and denies stroke/TIA. Psychiatric: The patient denies psychiatric medications, denies depression, and denies voices. Endocrine: The patient denies thyroid disorders, denies diabetes, and denies hormonal problems. Hematologic: The patient denies a history of bruising, denies bleeding, and denies anemia. Infections: The patient denies a history of measles and mumps, denies rheumatic fever, and denies sexually transmitted diseases. Musculoskeletal: The patient denies back pain/injury, denies back problems, denies sciatica, deniesknee/foot trouble, denies arthritis, or denies gout. PHYSICAL EXAMINATION: General: The patient is 53 year old, female well nourished, well hydrated in no acute distress. Thepatient is oriented to time, place, and person. VITALS: Blood pressure 146/94, pulse 91, temperature 36.1 C (97 F), height 172.7 cm (5' 8), .5 kg (272 lb 3.2 oz), SpO2 98%. Body mass index is 41.39 kg/m . HEENT: Normal cephalic, ataumatic, pupils are equally round, sclera are anicteric, mucous membranesare moist, oropharynx is clear. Neck has no masses, asymmetry or lymphadenopathy. Respiratory: Clear to auscultation and percussion. Normal respiratory excursion and pattern. Cardiac: Examination is regular rate and rhythm. Normal S1/S2 Abdominal exam: Soft, nontender, with no palpable masses. No hepatosplenomegaly. No palpable hernias. Extremities: no clubbing, cyanosis or edema. No adenopathy. LABORATORY VALUES: As Noted RADIOLOGIC STUDIES: As Noted Assessment IMPRESSION: screen for colon cancer PLAN: I have reviewed my findings with the surgeon. Will plan for lower endoscopy. We discussed therisks and benefits of the planned endoscopy. I have informed the patient that complications can occur including failure to complete the endoscopy and perforation. Ling had the opportunity to ask questions concerning the planned endoscopy. My staff has also explained the procedure to the patient inunderstandable terms and has given the patient printed material concerning the procedure. Ling freely consents to surgery. I plan to use SuTab bowel preparation- pt instructed about 2 days of clear liquids & agreeable I have explained to the patient the difference between IV conscious sedation and MAC anesthesia - and I have offered either, according to the patient's wishes. I have explained that with IV conscioussedation there is no anesthesia provider available and therefore there is a limitation of the amount of IV medications that can be given and that the patient may wake up in the middle of the procedure and/or experience pain/discomfort during the procedure. Further discussion was done and the patient was given the opportunity to ask questions and all questions were answered. MAC anesthesia. Ling was counseled that if there are changes in his/her medical condition, to let the office know if surgery should proceed. If there are changes in patient's medical condition from time of this encounter to the day of the procedure that preclude anesthesia, patient may have procedure cancelled for patient's safety. Diagnoses: (Z12.11) Screen for colon cancer (primary encounter diagnosis) Portions of this documentation were copied and pasted from previous office visit notes in order to provide a cohesive continuity of the history. The note has been reviewed and edited and updated as necessary. Radha Navarro APRN.JING [facility] NoteHNO ID: [id number] Author: RADHA NAVARRO APRN.CNP Service: ? Author Type: Nurse Practitioner Type: Progress Notes Filed: 03/29/2024 10:45 Note Text: HISTORY AND PHYSICAL Ling Dias : 1970 REFERRING PHYSICIAN: Charlee Humphries, MARA [address] [facility] [id number] CHIEF COMPLAINT: Patient presents with: Consult: Colonoscopy consultation HPI: Ling is a 53 year old female referred for endoscopy. Ling notes due for colon cancer screening. Ling denies abdominal pain.. Ling denies diarrhea. Ling denies constipation. Ling denies a change in bowel habits. Ling denies melena. Ling denies bright red blood per rectum. Ling denies hemorrhoids. Ling notes heartburn. Well controlled with Prilosec daily Ling denies dysphagia. Ling denies a history of ulcers/ peptic ulcer disease. Denies family history of colon issues. Ling has not undergone prior endoscopy. Current Outpatient Medications Medication Sig cholecalciferol, Vitamin D3, (VITAMIN D3) 1,250 mcg (50,000 unit) cap capsule Take 50,000 Units by mouth once every month. acetaminophen 325 mg cap Take 2 capsules by mouth every 6 hours as needed for pain. amLODIPine (NORVASC) 5 mg tablet Take 5 mg by mouth once daily. sertraline (ZOLOFT) 50 mg tablet Take 50 mg by mouth once daily. losartan (COZAAR) 100 mg tablet Take 100 mg by mouth once daily. omeprazole (PRILOSEC) 40 mg capsule Take 40 mg by mouth once daily. levothyroxine (LEVOXYL) 50 mcg tablet Take 50 mcg by mouth daily before breakfast. busPIRone (BUSPAR) 10 mg tablet Take 10 mg by mouth three times a day as needed (anxiety). meclizine (ANTIVERT) 25 mg tab Take 25 mg by mouth three times a day as needed (vertigo). venlafaxine ER (EFFEXOR XR) 150 mg 24 hr capsule Take 1 capsule by mouth once daily. sod sulf-pot chloride-mag sulf (SUTAB) 1.479-0.188- 0.225 gram tab Take 12 tablets by mouth as directed for 2 days. Follow instructions that have been given to you by your provider's office. (Part 1, take 12 tablets. Part 2, take 12 tablets). No current facility-administered medications for this visit. ALLERGIES: Patient has no known allergies. PAST MEDICAL HISTORY Diagnosis Date COVID-19 De Quervain's disease (tenosynovitis) Depression Dermatitis Elevated LFTs CHAYO (generalized anxiety disorder) Gallbladder sludge GERD (gastroesophageal reflux disease) History of endometriosis Hyperlipidemia Hypertension Hypothyroidism Increased BMI Insomnia Pars defect of lumbar spine Renal insufficiency Seasonal allergies Vitamin D deficiency PAST SURGICAL HISTORY Procedure Laterality Date DELIVERY ONLY , low cervical, X-2 ESSURE 05/13/2010 Dr Yoder HYSTEROSCOPY, DIAGNOSTIC (SEPARATE 05/18/2019 INSERT INTRAUTERINE DEVICE 03/13/2005 Mirena PAST SURGICAL HISTORY OF BONE RECONSTRUCTION RT. FOOT PAST SURGICAL HISTORY OF 07/08/2006 Bone reconstruction on Left foot. FAMILY HISTORY Problem Relation Age of Onset Breast Cancer Mother Dx at 42 Hypertension Mother Heart Father open heart surgery Hypertension Father Alzheimer's Disease Father Hypertension Brother X-2 Hypertension Maternal Aunt Breast Cancer Maternal Aunt 78 Social History Tobacco Use Smoking status: Never Smokeless tobacco: Never Substance Use Topics Alcohol use: Yes Comment: very rarely Drug use: No REVIEW OF SYMPTOMS: REVIEW OF SYSTEMS: General: The patient denies fatigue, denies weight loss, denies weight gain, denies feeling hot, and feelings of cold. Eyes: The patient denies glaucoma, denies eye injury/surgery, denies glasses or contacts. Ear/Nose/Throat: The patient denies allergies, denies hayfever, denies ear infections, and denies bloody noses. Cardiovascular: The patient denies chest pain, denies heart disease, denies high blood pressure, denies high cholesterol, and denies poor circulation. Respiratory: The patient denies tuberculosis, denies pneumonia, denies frequent cough, denies shortness of breath, and denies coughing up blood. Gastrointestinal: The patient denies difficulty swallowing, + acid reflux, denies ulcers, denies jaundice/hepatitis, denies gallbladder problems, denies vomiting, denies black or tarry stools, denies hemorrhoids, denies bleeding from rectum, denies diverticulitis, denies constipation, denies diarrhea, denies loss of stool control, and denies hernias. Kidney/Bladder: The patient denies kidney stones, denies urine infections, and denies bloody urine. Skin: The patient denies a history of skin cancer, denies bleeding/changing moles, and denies a history of skin rash. Neurologic: The patient denies a history of epilepsy/convulsions, denies headaches, denies head/spinal injuries, and denies stroke/TIA. Psychiatric: The patient denies psychiatric medications, denies depression, and denies voices. Endocrine: The patie (more content not included)...[facility] 11-24-2023 Telephone encounter Note* Telephone Encounter - Cecilia Boyle LPN - 11/24/2023 11:28 AM EDT Pt notified of results and provider's message. Cecilia Boyle LPN [facility]05-14-2024 Miscellaneous Notes* Telephone Encounter - Cecilia Boyle LPN - 11/24/2023 11:28 AM EDT Pt notified of results and provider's message. Cecilia Boyle LPN * Telephone Encounter - Mai Brandt APRN.CNP - 11/24/2023 10:59 AM EDT Urine culture reveals bacterial growth. The Macrobid prescribed is appropriate. Please complete allof the antibiotic. Follow up with your PCP for continued and/or worsening symptoms. Please advise patient [facility] Telephone encounter Note * Telephone Encounter - Mai Brandt APRN.CNP - 11/24/2023 10:59 AM EDT Urine culture reveals bacterial growth. The Macrobid prescribed is appropriate. Please complete allof the antibiotic. Follow up with your PCP for continued and/or worsening symptoms. Please advise patient [facility]05-12-2024 NoteHNO ID: [id number] Author: JENNIFER KELLER APRN.JING Service: ? Author Type: Nurse Practitioner Type: Progress Notes Filed: 11/22/2023 08:25 Note Text: CC: Patient presents with: Urinary Problem: X3DAYS HPI Ling Dias is a 53 year old female who presents with complaint of possible UTI. These symptoms have been present for 3 days. Associated symptoms: burning and frequency Denies: fever, chills, sweats, abdominal pain, and flank pain Treatments: nothing The ROS was otherwise negative. PMH, Medications, labs, allergies, and recent past visits with PCP were reviewed and updated as able. PHYSICAL EXAM: BP 138/74 Pulse 98 Temp 36.1 ?C (96.9 ?F) Resp 16 Wt 123.4 kg (272 lb) LMP (LMP Unknown) SpO2 99% BMI 41.36 kg/m? General: Well appearing and alert CV: Regular rate and rhythm without obvious murmur Lungs: clear to auscultation bilaterally Back: straight and symmetric Abdomen: soft, nontender, nondistended PAST MEDICAL HISTORY Diagnosis Date Seasonal allergies Unspecified essential hypertension PAST SURGICAL HISTORY Procedure Laterality Date DELIVERY ONLY , low cervical, X-2 ESSURE 05/2010 Dr Yoder INSERT INTRAUTERINE DEVICE 03/2005 Mirena PAST SURGICAL HISTORY OF BONE RECONSTRUCTION RT. FOOT PAST SURGICAL HISTORY OF 07/08/2006 Bone reconstruction on Left foot. ALLERGIES Patient has no known allergies. MEDICATIONS amLODIPine (NORVASC) 5 mg tablet Take 5 mg by mouth once daily. sertraline (ZOLOFT) 50 mg tablet Take 50 mg by mouth once daily. losartan (COZAAR) 100 mg tablet Take 100 mg by mouth once daily. omeprazole (PRILOSEC) 40 mg capsule Take 40 mg by mouth once daily. levothyroxine (LEVOXYL) 50 mcg tablet Take 50 mcg by mouth daily before breakfast. busPIRone (BUSPAR) 10 mg tablet Take 10 mg by mouth as needed (anxiety). meclizine (ANTIVERT) 25 mg tab Take 25 mg by mouth as needed (vertigo). venlafaxine ER (EFFEXOR XR) 150 mg 24 hr capsule Take 1 capsule by mouth once daily. nitrofurantoin monohydrate and macrocrystal (MACROBID) 100 mg capsule Take 1 capsule by mouth two times a day for 5 days. guaiFENesin (MUCINEX) 600 mg 12 hr tablet Take 2 tablets by mouth twice daily. (Patient not taking: Reported on 02/08/2023) benzonatate (TESSALON PERLES) 100 mg capsule Take 1 capsule by mouth three times daily as needed. (Patient not taking: Reported on 02/08/2023) betamethasone dipropionate (DIPROSONE) 0.05 % cream Apply to affected area as directed. (Patient not taking: Reported on 02/08/2023) lisinopril(PRINIVIL 10 MG TAB) Take one(1) tablet daily. (Patient not taking: Reported on 02/08/2023) FAMILY HISTORY Problem Relation Age of Onset Breast Cancer Mother Dx at 42 Hypertension Mother Heart Father open heart surgery Hypertension Father Hypertension Brother X-2 Breast Cancer Maternal Aunt 78 Social History Tobacco Use Smoking status: Never Smokeless tobacco: Never Substance Use Topics Alcohol use: Yes Comment: very rarely Drug use: No ASSESSMENT/PLAN: 1. Urinary frequency - ICD9: 788.41, ICD10: R35.0 - UA DIP, URINE (POC) - URINE CULTURE - NITROFURANTOIN MONOHYDRATE AND MACROCRYSTAL 100 MG ORAL CAP Prescription instructions reviewed with patient as applicable. Potential red flag symptoms discussed with the patient. Reviewed appropriate action plan to take if red flag symptoms occur. Patient agreeable to treatment plan. Jennifer Keller APRN.[facility]05-12-2024 History of Present illness Narrative* Jennifer Keller APRN.[facility] - 11/22/2023 8:12 AM EDT CC: Patient presents with: Urinary Problem: X3DAYS HPI Ling Dias is a 53 year old female who presents with complaint of possible UTI. These symptoms have been present for 3 days. Associated symptoms: burning and frequency Denies: fever, chills, sweats, abdominal pain, and flank pain Treatments: nothing The ROS was otherwise negative. PMH, Medications, labs, allergies, and recent past visits with PCP were reviewed and updated as able. PHYSICAL EXAM: BP 138/74 Pulse 98 Temp 36.1 C (96.9 F) Resp 16 Wt 123.4 kg (272 lb) LMP (LMP Unknown) SpO2 99% BMI 41.36 kg/m General: Well appearing and alert CV: Regular rate and rhythm without obvious murmur Lungs: clear to auscultation bilaterally Back: straight and symmetric Abdomen: soft, nontender, nondistended PAST MEDICAL HISTORY Diagnosis Date Seasonal allergies Unspecified essential hypertension PAST SURGICAL HISTORY Procedure Laterality Date DELIVERY ONLY , low cervical, X-2 ESSURE 05/2010 Dr Yoder INSERT INTRAUTERINE DEVICE 03/2005 Mirena PAST SURGICAL HISTORY OF BONE RECONSTRUCTION RT. FOOT PAST SURGICAL HISTORY OF 07/08/2006 Bone reconstruction on Left foot. ALLERGIES Patient has no known allergies. MEDICATIONS amLODIPine (NORVASC) 5 mg tablet Take 5 mg by mouth once daily. sertraline (ZOLOFT) 50 mg tablet Take 50 mg by mouth once daily. losartan (COZAAR) 100 mg tablet Take 100 mg by mouth once daily. omeprazole (PRILOSEC) 40 mg capsule Take 40 mg by mouth once daily. levothyroxine (LEVOXYL) 50 mcg tablet Take 50 mcg by mouth daily before breakfast. busPIRone (BUSPAR) 10 mg tablet Take 10 mg by mouth as needed (anxiety). meclizine (ANTIVERT) 25 mg tab Take 25 mg by mouth as needed (vertigo). venlafaxine ER (EFFEXOR XR) 150 mg 24 hr capsule Take 1 capsule by mouth once daily. nitrofurantoin monohydrate and macrocrystal (MACROBID) 100 mg capsule Take 1 capsule by mouth two times a day for 5 days. guaiFENesin (MUCINEX) 600 mg 12 hr tablet Take 2 tablets by mouth twice daily. (Patient not taking:Reported on 02/08/2023) benzonatate (TESSALON PERLES) 100 mg capsule Take 1 capsule by mouth three times daily as needed. (Patient not taking: Reported on 02/08/2023) betamethasone dipropionate (DIPROSONE) 0.05 % cream Apply to affected area as directed. (Patient not taking: Reported on 02/08/2023) lisinopril(PRINIVIL 10 MG TAB) Take one(1) tablet daily. (Patient not taking: Reported on 02/08/2023) FAMILY HISTORY Problem Relation Age of Onset Breast Cancer Mother Dx at 42 Hypertension Mother Heart Father open heart surgery Hypertension Father Hypertension Brother X-2 Breast Cancer Maternal Aunt 78 Social History Tobacco Use Smoking status: Never Smokeless tobacco: Never Substance Use Topics Alcohol use: Yes Comment: very rarely Drug use: No ASSESSMENT/PLAN: 1. Urinary frequency - ICD9: 788.41, ICD10: R35.0 - UA DIP, URINE (POC) - URINE CULTURE - NITROFURANTOIN MONOHYDRATE & MACROCRYSTAL 100 MG ORAL CAP Prescription instructions reviewed with patient as applicable. Potential red flag symptoms discussed with the patient. Reviewed appropriate action plan to take if red flag symptoms occur. Patient agreeable to treatment plan. Jennifer Keller APRN.[facility] documented in this [facility]24 NoteHNO ID: [id number] Author: JENNIFER KELLER APRN.[employer] P[employer]ER Service: ? Author Type: Nurse Practitioner Type: Progress Notes Filed: 09/24/2023 09:50 Note Text: CC: Patient presents with: Sinus Problem: Chest congestion, nasal congestion, headache, cough at HS x 1 week Patient has had sinus pressure, congestion, and cough for a week. Patient denies sore throat or pleuritic pain. HPI: Ling Dias is a 53 year old female who presents to the office with complaint of head congestion, cough, nonproductive, and sinus symptoms for a week. Symptoms are worsening Associated symptoms includes nasal congestion, facial pain/pressure, headache, and cough. Denies sore throat, fever, ear pain, and dyspnea. Treatments tried include OTC cold medicine with minor relief of symptoms. Sick contacts: no. History of asthma, frequent episodes of bronchitis, chronic bronchitis, bronchiectasis or COPD: No Smoker: No Seasonal/environmental allergies: No The ROS is otherwise negative. The patient's pmh, medications, allergies, and past visits are reviewed. PHYSICAL EXAM: BP 142/98 Pulse 86 Temp 37 ?C (98.6 ?F) Resp 20 Wt 123 kg (271 lb 2.7 oz) LMP (LMP Unknown) SpO2 100% BMI 41.23 kg/m? General appearance: alert, cooperative, pleasant, in no acute distress Head: Normocephalic Eyes: PERRLA, EOM's intact, conjunctiva pink and moist, no icterus, sclera white, non-injected Ears: Right ear: External ear/canal- Normal, TM - clear with good landmarks. Left ear: External ear/canal- Normal, TM - clear with good landmarks Nose: clear. Oropharynx:moist without lesions, mild erythema, without exudates present Neck:supple and no adenopathy Heart: Negative. RRR without obvious murmur, gallop, or rubs. No ectopy. Lungs: clear to auscultation, without rales or wheeze, good air exchange PAST MEDICAL HISTORY Diagnosis Date Seasonal allergies Unspecified essential hypertension PAST SURGICAL HISTORY Procedure Laterality Date DELIVERY ONLY , low cervical, X-2 ESSURE 05/2010 Dr Yoder INSERT INTRAUTERINE DEVICE 03/2005 Mirena PAST SURGICAL HISTORY OF BONE RECONSTRUCTION RT. FOOT PAST SURGICAL HISTORY OF 07/08/2006 Bone reconstruction on Left foot. ALLERGIES Patient has no known allergies. MEDICATIONS amLODIPine (NORVASC) 5 mg tablet Take 5 mg by mouth once daily. sertraline (ZOLOFT) 50 mg tablet Take 50 mg by mouth once daily. losartan (COZAAR) 100 mg tablet Take 100 mg by mouth once daily. omeprazole (PRILOSEC) 40 mg capsule Take 40 mg by mouth once daily. levothyroxine (LEVOXYL) 50 mcg tablet Take 50 mcg by mouth daily before breakfast. busPIRone (BUSPAR) 10 mg tablet Take 10 mg by mouth as needed (anxiety). meclizine (ANTIVERT) 25 mg tab Take 25 mg by mouth as needed (vertigo). venlafaxine ER (EFFEXOR XR) 150 mg 24 hr capsule Take 1 capsule by mouth once daily. cephALEXin (KEFLEX) 500 mg capsule Take 1 capsule by mouth twice daily. (Patient not taking: Reported on 02/08/2023) guaiFENesin (MUCINEX) 600 mg 12 hr tablet Take 2 tablets by mouth twice daily. (Patient not taking: Reported on 02/08/2023) benzonatate (TESSALON PERLES) 100 mg capsule Take 1 capsule by mouth three times daily as needed. (Patient not taking: Reported on 02/08/2023) betamethasone dipropionate (DIPROSONE) 0.05 % cream Apply to affected area as directed. (Patient not taking: Reported on 02/08/2023) lisinopril(PRINIVIL 10 MG TAB) Take one(1) tablet daily. (Patient not taking: Reported on 02/08/2023) FAMILY HISTORY Problem Relation Age of Onset Breast Cancer Mother Dx at 42 Hypertension Mother Heart Father open heart surgery Hypertension Father Hypertension Brother X-2 Breast Cancer Maternal Aunt 78 Social History Tobacco Use Smoking status: Never Smokeless tobacco: Never Substance Use Topics Alcohol use: Yes Comment: very rarely Drug use: No DATA REVIEWED: No new labs ASSESSMENT/PLAN: 1. Rhinosinusitis - ICD9: 473.9, ICD10: J32.9 - Will begin treatment with as per antibiotic as written, see orders - Supportive care with plenty of fluids, rest, and analgesia prn. - AMOXICILLIN 875 MG-POTASSIUM CLAVULANATE 125 MG TABLET Prescription instructions reviewed with patient. Potential red flag symptoms discussed with the patient. Reviewed appropriate action plan to take if red flag symptoms occur. Patient agreeable to treatment plan. Brooke Bertrand Supervising provider was present and guided the care of the patient for the entire session on this date. All documentation was reviewed and agreed upon. Jennifer Keller [facility] History of Present illness Narrative* Jennifer Keller APRN.JING - 09/24/2023 9:25 AM EDT CC: Patient presents with: Sinus Problem: Chest congestion, nasal congestion, headache, cough at HS x 1 week Patient has had sinus pressure, congestion, and cough for a week. Patient denies sore throat or pleuritic pain. HPI: Ling Dias is a 53 year old female who presents to the office with complaint of head congestion, cough, nonproductive, and sinus symptoms for a week. Symptoms are worsening Associated symptoms includes nasal congestion, facial pain/pressure, headache, and cough. Denies sore throat, fever, ear pain, and dyspnea. Treatments tried include OTC cold medicine with minor relief of symptoms. Sick contacts: no. History of asthma, frequent episodes of bronchitis, chronic bronchitis, bronchiectasis or COPD: No Smoker: No Seasonal/environmental allergies: No The ROS is otherwise negative. The patient's pmh, medications, allergies, and past visits are reviewed. PHYSICAL EXAM: BP 142/98 Pulse 86 Temp 37 C (98.6 F) Resp 20 Wt 123 kg (271 lb 2.7 oz) LMP (LMP Unknown) SpO2 100% BMI 41.23 kg/m General appearance: alert, cooperative, pleasant, in no acute distress Head: Normocephalic Eyes: PERRLA, EOM's intact, conjunctiva pink and moist, no icterus, sclera white, non-injected Ears: Right ear: External ear/canal- Normal, TM - clear with good landmarks. Left ear: External ear/canal- Normal, TM - clear with good landmarks Nose: clear. Oropharynx:moist without lesions, mild erythema, without exudates present Neck:supple and no adenopathy Heart: Negative. RRR without obvious murmur, gallop, or rubs. No ectopy. Lungs: clear to auscultation, without rales or wheeze, good air exchange PAST MEDICAL HISTORY Diagnosis Date Seasonal allergies Unspecified essential hypertension PAST SURGICAL HISTORY Procedure Laterality Date DELIVERY ONLY , low cervical, X-2 ESSURE 05/2010 Dr Yoder INSERT INTRAUTERINE DEVICE 03/2005 Mirena PAST SURGICAL HISTORY OF BONE RECONSTRUCTION RT. FOOT PAST SURGICAL HISTORY OF 07/08/2006 Bone reconstruction on Left foot. ALLERGIES Patient has no known allergies. MEDICATIONS amLODIPine (NORVASC) 5 mg tablet Take 5 mg by mouth once daily. sertraline (ZOLOFT) 50 mg tablet Take 50 mg by mouth once daily. losartan (COZAAR) 100 mg tablet Take 100 mg by mouth once daily. omeprazole (PRILOSEC) 40 mg capsule Take 40 mg by mouth once daily. levothyroxine (LEVOXYL) 50 mcg tablet Take 50 mcg by mouth daily before breakfast. busPIRone (BUSPAR) 10 mg tablet Take 10 mg by mouth as needed (anxiety). meclizine (ANTIVERT) 25 mg tab Take 25 mg by mouth as needed (vertigo). venlafaxine ER (EFFEXOR XR) 150 mg 24 hr capsule Take 1 capsule by mouth once daily. cephALEXin (KEFLEX) 500 mg capsule Take 1 capsule by mouth twice daily. (Patient not taking: Reported on 02/08/2023) guaiFENesin (MUCINEX) 600 mg 12 hr tablet Take 2 tablets by mouth twice daily. (Patient not taking:Reported on 02/08/2023) benzonatate (TESSALON PERLES) 100 mg capsule Take 1 capsule by mouth three times daily as needed. (Patient not taking: Reported on 02/08/2023) betamethasone dipropionate (DIPROSONE) 0.05 % cream Apply to affected area as directed. (Patient not taking: Reported on 02/08/2023) lisinopril(PRINIVIL 10 MG TAB) Take one(1) tablet daily. (Patient not taking: Reported on 02/08/2023) FAMILY HISTORY Problem Relation Age of Onset Breast Cancer Mother Dx at 42 Hypertension Mother Heart Father open heart surgery Hypertension Father Hypertension Brother X-2 Breast Cancer Maternal Aunt 78 Social History Tobacco Use Smoking status: Never Smokeless tobacco: Never Substance Use Topics Alcohol use: Yes Comment: very rarely Drug use: No DATA REVIEWED: No new labs ASSESSMENT/PLAN: 1. Rhinosinusitis - ICD9: 473.9, ICD10: J32.9 - Will begin treatment with as per antibiotic as written, see orders - Supportive care with plenty of fluids, rest, and analgesia prn. - AMOXICILLIN 875 MG-POTASSIUM CLAVULANATE 125 MG TABLET Prescription instructions reviewed with patient. Potential red flag symptoms discussed with the patient. Reviewed appropriate action plan to take if red flag symptoms occur. Patient agreeable to treatment plan. Brooke Bertrand Supervising provider was present and guided the care of the patient for the entire session on this date. All documentation was reviewed and agreed upon. Jennifer Keller APRN.JING documented [facility] History of Present illness Narrative* Padmini Braun PA-C - 02/08/2023 8:41 AM EDT This note was created using [employer]. Subjective Ling Dias is a 52 year old female. HPI Presents with urinary frequency, urgency, dysuria, hematuria since this morning. No abdominal pain or back pain. No fever or vomiting. No vaginal symptoms. Has had UTIs off and on before. No OTC medstaken. No hx kidney stones or kidney disease per patient. Review of Systems Constitutional: Negative. HENT: Negative. Respiratory: Negative. Cardiovascular: Negative. Gastrointestinal: Negative. Genitourinary: Positive for dysuria, frequency, hematuria and urgency. Negative for flank pain and pelvic pain. Musculoskeletal: Negative. All other systems reviewed and are negative. PAST MEDICAL HISTORY Diagnosis Date Seasonal allergies Unspecified essential hypertension Current Outpatient Medications Medication Sig Dispense Refill venlafaxine ER (EFFEXOR XR) 150 mg 24 hr capsule Take 1 capsule by mouth once daily. 3 nitrofurantoin monohydrate and macrocrystal (MACROBID) 100 mg capsule Take 1 capsule by mouth twicedaily with meals for 5 days. 10 capsule 0 cephALEXin (KEFLEX) 500 mg capsule Take 1 capsule by mouth twice daily. (Patient not taking: Reported on 02/08/2023) 14 capsule 0 guaiFENesin (MUCINEX) 600 mg 12 hr tablet Take 2 tablets by mouth twice daily. (Patient not taking:Reported on 02/08/2023) 60 tablet 0 benzonatate (TESSALON PERLES) 100 mg capsule Take 1 capsule by mouth three times daily as needed. (Patient not taking: Reported on 02/08/2023) 40 capsule 0 betamethasone dipropionate (DIPROSONE) 0.05 % cream Apply to affected area as directed. (Patient not taking: Reported on 02/08/2023) lisinopril(PRINIVIL 10 MG TAB) Take one(1) tablet daily. (Patient not taking: Reported on 02/08/2023) 0 0 No current facility-administered medications for this visit. PAST SURGICAL HISTORY Procedure Laterality Date DELIVERY ONLY , low cervical, X-2 ESSURE 05/2010 Dr Yoder INSERT INTRAUTERINE DEVICE 03/2005 Mirena PAST SURGICAL HISTORY OF BONE RECONSTRUCTION RT. FOOT PAST SURGICAL HISTORY OF 07/08/2006 Bone reconstruction on Left foot. FAMILY HISTORY Problem Relation Age of Onset Breast Cancer Mother Dx at 42 Hypertension Mother Heart Father open heart surgery Hypertension Father Hypertension Brother X-2 Breast Cancer Maternal Aunt 78 Social History Tobacco Use Smoking status: Never Smokeless tobacco: Never Substance Use Topics Alcohol use: Yes Comment: very rarely Drug use: No Objective BP 128/84 Pulse 91 Temp 36.6 C (97.8 F) (Tympanic) Resp 18 Wt 123.2 kg (271 lb 9.6 oz) LMP 06/19/2018 SpO2 98% BMI 41.30 kg/m Physical Exam Vitals reviewed. Constitutional: Appearance: Normal appearance. HENT: Head: Normocephalic and atraumatic. Cardiovascular: Rate and Rhythm: Normal rate and regular rhythm. Heart sounds: Normal heart sounds. Pulmonary: Effort: Pulmonary effort is normal. Breath sounds: Normal breath sounds. Abdominal: General: Bowel sounds are normal. There is no distension. Palpations: Abdomen is soft. Tenderness: There is no abdominal tenderness. There is no right CVA tenderness, left CVA tendernessor guarding. Skin: General: Skin is warm and dry. Neurological: Mental Status: She is alert. Assessment and Plan ASSESSMENT/PLAN: 1. Urinary frequency - ICD9: 788.41, ICD10: R35.0 acute - UA positive for michell esterase, hematuria, proteinuria, and nitrates - Send urine for culture - Begin treatment with Macrobid 100 mg BID for 5 days - UA DIP, URINE (POC) - URINE CULTURE - NITROFURANTOIN MONOHYDRATE & MACROCRYSTAL 100 MG ORAL CAP Padmini Braun PA-C documented in this encounterE[facility] HospitalEvaluation + Plan note Future Appointments Appointment Date:11/21/2021 10:40:00 AM Scheduled Provider:CHARLEE HUMPHRIES APRN - JING Location:[facility] Appointment Type:PC OV Future Scheduled Tests Laboratory* Thyroid Stimulating Hormone 11/20/21 * Free T4 11/20/21 * Pathology Manager Strategic Request 09/02/21 * Complete Blood Count 11/20/21 * Lipid Profile 11/20/21 * Prothrombin Time - Panel 07/02/21 * Complete Metabolic Panel 11/20/21 [facility] Evaluation + Plan note Future Appointments Appointment Date:11/24/2022 10:40:00 AM Scheduled Provider:CHARLEE HUMPHRIES APRN - DOPE POURER Location:[facility] Appointment Type:PC OV Follow Up Future Scheduled Tests Laboratory* Thyroid Stimulating Hormone 05/24/22 * Thyroid Stimulating Hormone 11/23/22 * Free T4 05/24/22 * Free T4 11/23/22 * Complete Blood Count 05/24/22 * Complete Blood Count 11/23/22 * Lipid Profile 05/24/22 * Lipid Profile 11/23/22 * Microalbumin Level Urine 05/24/22 * Microalbumin Level Urine 11/23/22 * Vitamin D Level 11/23/22 * Complete Metabolic Panel 05/24/22 * Complete Metabolic Panel 11/23/22 Radiology* XR Hand Minimum 3 Views Right 12/05/21 [facility] Evaluation + Plan note Future Appointments Appointment Date:12/03/2023 09:30:00 AM Scheduled Provider: Location:[facility] Appointment Type:PC Nurse Lab Appointment Date:12/10/2023 10:40:00 AM Scheduled Provider:CHARLEE HUMPHRIES CARDIAC SONOGRAPHER - DOPE POURER Location:[facility] Appointment Type:PC OV Follow Up Future Scheduled Tests Laboratory* Thyroid Stimulating Hormone 06/06/23 * Thyroid Stimulating Hormone 12/10/23 * Thyroid Stimulating Hormone 11/23/22 * Free T4 06/06/23 * Free T4 12/10/23 * Free T4 11/23/22 * Complete Blood Count 06/06/23 * Complete Blood Count 12/10/23 * Complete Blood Count 11/23/22 * Lipid Profile 06/06/23 * Lipid Profile 12/10/23 * Lipid Profile 11/23/22 * Albumin/Creatinine Ratio, Random Urine 06/06/23 * Albumin/Creatinine Ratio, Random Urine 12/10/23 * Microalbumin Level Urine 11/23/22 * Vitamin D Level 06/06/23 * Vitamin D Level 12/10/23 * Vitamin D Level 11/23/22 * Complete Metabolic Panel 06/06/23 * Complete Metabolic Panel 12/10/23 * Complete Metabolic Panel 11/23/22 [facility] Evaluation noteNo assessment information available [facility] Work Phone: Evaluation note* Diagnosis Urinary frequency- Primary [facility] Diagnosis Rhinosinusitis- Primary Unspecified sinusitis (chronic) [facility] Diagnosis Urinary frequency- Primary [facility]* Diagnosis Screen for colon cancer- Primary Special screening for malignant neoplasms, colon [facility]* Diagnosis Acute UTI- Primary Urinary tract infection, site not specified Burning with urination Dysuria [facility]* Diagnosis Urinary frequency- Primary [facility]* Diagnosis Family history of breast cancer in mother- Primary Family history of malignant neoplasm of breast Screen for colon cancer Special screening for malignant neoplasms, colon [facility]* Diagnosis Urinary frequency- Primary Acute UTI Urinary tract infection, site not specified [facility] Narrative No data available for this section [facility] Hospital Discharge instructions No data available for this section [facility] Progress note No data available for this section [facility] Reason for referral (narrative)* Outpatient Procedure (Routine) - Authorized Specialty Diagnoses / Procedures Referred By Contac t Referred To Contact [facility] Diagnoses Screen for colon cancer Procedures COLONOSCOPY SCREENING COLONOSCOPY FLX DX W/COLLJ SPEC WHEN Radha Sood APRN.DOPE POURER [address] [place] [address] [facility] [address] [place] [id number] Referral ID Status Reason Start Date Expiration Date Visits Requested Visits Authorized [id number] Authorized Auto-Generat ed Referral 03/29/2024 03/29/2025 1 1 [facility] for referral (narrative)* Outpatient Procedure (Routine) - Closed Specialty Diagnoses / Procedures Referred By Contdeven t Referred To Contact [facility] Diagnoses Screen for colon cancer Procedures COLONOSCOPY SCREENING COLONOSCOPY FLX DX W/COLLJ SPEC WHEN Radha Sood APRN.DOPE POURER [address] [place] [address] [facility] Disease [address] [id number] Referral ID Status Reason Start Date Expiration Date V isits Requested Visits Authorized [id number] Closed Auto-Generate d Referral 05/12/2024 07/12/2024 1 1 [facility] for referral (narrative)No reason for referral information [facility] Work Phone: Reason for visit Narrative* Diagnostic Procedure Only (Urgent) - Closed Specialty Diagnoses / Procedures Referred By Contac t Referred To Contact [facility] Diagnoses Injury of toe on left foot, initial encounter Procedures XR TOE AP/LAT/OBL LEFT RADEX TOE MINIMUM 2 VIEWS Mehul Neves APRN.DOPE POURER [address] [place] [address] [place] [address] Referral ID Status Reason Start Date Expiration Date V isits Requested Visits Authorized [id number] Closed Auto-Generate d Referral 05/02/2023 05/31/2024 1 1 [facility] N[facility]ative* Outpatient Procedure (Routine) - Closed Specialty Diagnoses / Procedures Referred By Tesfaye west Referred To Contact [facility] Diagnoses Screen for colon cancer Procedures COLONOSCOPY SCREENING COLONOSCOPY FLX DX W/COLLJ SPEC WHEN [facility] Radha Navarro APRN.DOPE POURER [address] [place] [address] [facility] [address] [place] [address] Referral ID Status Reason Start Date Expiration Date V isits Requested Visits Authorized [id number] Closed Auto-Generate d Referral 05/12/2024 07/12/2024 1 1 [facility] Chief Complaint and Reason for Visit Chief Complaint Radial styloid tenos ynovitis [de Quervain] Chief Complaint NEED ORDER Chief Complaint NEED ORDER/PAT IS BEAN GARCIA DR TO FAX US Chief Complaint Admit Date ABDOMINAL PAIN June 09, 2024 4:55pm ABDOMINAL PAIN June 10, 2024 9:06am ABDOMINAL PAIN June 11, 2024 2:15pm UTI September 22, 2024 5:2 5pm Reason for Visit Admit Date HTN (hypertension) June 09, 2024 4:55pm Advance Directives No Advanced Directives Records Found Advance Directive Response Recorded Date/ Time Living Will No April 19 0 8:10am Power of Coremaker Pipe No April 19 8:10am Advance Directive Response Recorded Date/ Time Living Will No April 19 0 7:10am Power of Coremaker Pipe No April 19 020 7:10am Advance Directive Response Recorded Date/ Time Living Will No June 09 6:33pm Do you have a Healthcare Pow er of Coremaker Pipe? Yes June 09, 2024 6:33pm Name of Medical Power of Coremaker Pipe David fry June 09, 2024 6:33pm Summary Purpose Family History No Family History Records Found Additional Source Comments Goals (unrecognized section and content) Goals may be documented in a n alternate section INFORMATION SOURCE (unrecogn ized section and content) DATE CREATED AUTHOR [facility]/04/2022 [facility] DATE CREATED AUTHOR AUTHOR'S ORGANIZ ATION 09/28/2023 [facility] ([place] DATE CREATED AUTHOR AUTHOR'S ORGANIZ ATION 06/26/2024 [facility] DATE CREATED AUTHOR AUTHOR'S ORGANIZ ATION 08/21/2024 [facility] DATE CREATED AUTHOR AUTHOR'S ORGANIZ ATION 09/29/2024 [facility] DATE CREATED AUTHOR AUTHOR'S ORGANIZ ATION 12/19/2024 [facility] Care Team (unrecognized sect ion and content) Care Team Personnel Name: CHARLEE HUMPHRIES CARDIAC SONOGRAPHER - DOPE POURER Position: P4 Advanced Estate Planning Counselor Member Role: Primary Care Physician Address: Address: [address] [place] [address]- [place] Care Team Related Persons Name: DAVID DIAS Address: Home [address] [place] [phone] [place] Care Teams (unrecognized sec tion and content) Team Status: Active Member Role Status Dates Charlee Humphries ENGINEERING AIDE, ENGINEERING AIDE-C Family Provider Activ e Charlee Humphries ENGINEERING AIDE, ENGINEERING AIDE-C Primary Care Provider Active Team Status: Inactive Member Role Status Dates Charlee Humphries ENGINEERING AIDE, ENGINEERING AIDE-C Primary Care Provider, Attending Provider Active Medical Device Sales Representative Relationship Specialty Start Date End Date Charlee Humphries CNP [address] [place] [id number] PCP - General Family Medicine 04/26/10 Team Status: Inactive Member Role Status Dates Charlee Humphries ENGINEERING AIDE, ENGINEERING AIDE-C Primary Care Provider, Attending Provider, Referring Provider Active Medical Device Sales Representative Relationship Specialty Start Date End Date Charlee Humphries CNP [address] [place] [id number] PCP - General Family Medicine 04/26/10 Medical Device Sales Representative Relationship Specialty Start Date End Date Charlee Humphries CNP [address] [place] [phone] PCP - General Family Medicine 04/26/10 Medical Device Sales Representative Relationship Specialty Start Date End Date Charlee Humphries, JING [address] [place] [phone] PCP - General Family Medicine 04/26/10 Medical Device Sales Representative Relationship Specialty Start Date End Date Charlee Humphries, JING [address] [place] [id number] PCP - General Family Medicine 04/26/10 Medical Device Sales Representative Relationship Specialty Start Date End Date Charlee Humphries, JING [address] [place] [phone] PCP - General Family Medicine 04/26/10 Medical Device Sales Representative Relationship Specialty Start Date End Date Charlee Humphries, JING [address] [place], [place] [id number] PCP - General Family Medicine 04/26/10 Medical Device Sales Representative Relationship Specialty Start Date End Date Charlee Humphries, JING [address] [place] [id number] PCP - General Family Medicine 04/26/10 Medical Device Sales Representative Relationship Specialty Start Date End Date Charlee Humphries, DOPE POURER [address] [place] [id number] PCP - General Family Medicine 04/26/10 Team Status: Active Member Role Status Dates Charlee Humphries ENGINEERING AIDE, ENGINEERING AIDE-C Primary Care Provider Active Team Status: Inactive Member Role Status Dates Charlee Humphries ENGINEERING AIDE, ENGINEERING AIDE-C Primary Care Provider Active Start: June 092023 End: June 11, 2024 Dr. Marquise Brown , DO Emergency Provider Activ e Start: June 09, 2024 End: June 11, 2024 Dr. Kadie Ta MD Admit Provider Active St art: June 09, 2024 End: June 11, 2024 Dr. Kadie Ta MD Other Provider Active St art: June 09, 2024 End: June 11, 2024 Dr. Ghanshyam Puente MD Attending Provider Active Start: June 09, 2024 End: June 11, 2024 Team Status: Active Member Role Status Dates Charlee Humphries ENGINEERING AIDE, ENGINEERING AIDE-C Primary Care Provider Active Start: June 102023 Dr. Marquise Brown , DO Emergency Provider Activ e Start: June 10, 2024 Dr. Kadie Ta MD Admit Provider Active St art: June 10, 2024 Dr. Kadie Ta MD Other Provider Active St art: June 10, 2024 Dr. Ghanshyam Puente MD Attending Provider Active Start: June 10, 2024 Dr. Ghanshyam Puente MD Other Provider Active Start: June 10, 2024 Team Status: Active Member Role Status Dates Charlee Humphries NP, ENGINEERING AIDE-C Primary Care Provider Active Start: June 112023 Dr. Marquise Brown , DO Emergency Provider Activ e Start: June 11, 2024 Dr. Kadie Ta MD Admit Provider Active St art: June 11, 2024 Dr. Kadie Ta MD Other Provider Active St art: June 11, 2024 Dr. Ghanshyam Puente MD Attending Provider Active Start: June 11, 2024 Dr. Ghanshyam Puente MD Other Provider Active Start: June 11, 2024 Team Status: Inactive Member Role Status Dates Charlee Humphries ENGINEERING AIDE, ENGINEERING AIDE-C Primary Care Provider Active Start: June 252023 End: June 25, 2024 Charlee Humphries ENGINEERING AIDE, ENGINEERING AIDE-C Attending Provider Active Start: June End: June 25, 2024 Charlee Humphries ENGINEERING AIDE, ENGINEERING AIDE-C Referring Provider Active Start: June End: June 25, 2024 Team Status: Inactive Member Role Status Dates Charlee Humphries ENGINEERING AIDE, ENGINEERING AIDE-C Primary Care Provider Active Start: June 272023 End: June 27, 2024 Charlee Humphries NP, ENGINEERING AIDE-C Attending Provider Active Start: June End: June 27, 2024 Charlee Humphries NP, ENGINEERING AIDE-C Referring Provider Active Start: June End: June 27, 2024 Team Status: Inactive Member Role Status Dates Charlee Humphries NP ENGINEERING AIDE-C Primary Care Provider Active Start: September 22, 2024 End: September 22, 2024 Dr. Anne Ridley MD Attending Provider Active Start: September 22, 2024 End: September 22, 2024 Dr. Anne Ridley MD Referring Provider Active Start: September 22, 2024 End: September 22, 2024 Source Comments (unrecognize d section and content) In the event this informatio n is protected by the Federal Confidentiality of Alcohol and Drug Abuse Patient Records regulations: The Federal rules restrict any use of the information to criminally investigate or prosecute any alcohol or drug abuse patient.[facility] HospitalIn the event this information is protected by the Federal Confidentiality of Alcohol and Drug Abuse Patient Records regulations: The Federal rules restrict any use of the information to criminally investigate or prosecute any alcohol or drug abuse patient.[facility] HospitalIn the event this information is protected by the Federal Confidentiality of Alcohol and Drug Abuse Patient Records regulations: The Federal rules restrict any use of the information to criminally investigate or prosecute any alcohol or drug abuse patient.[facility] HospitalIn the event this information is protected by the Federal Confidentiality of Alcohol and Drug Abuse Patient Records regulations: The Federal rules restrict any use of the information to criminally investigate or prosecute any alcohol or drug abuse patient.[facility] HospitalIn the event this information is protected by the Federal Confidentiality of Alcohol and Drug Abuse Patient Records regulations: The Federal rules restrict any use of the information to criminally investigate or prosecute any alcohol or drug abuse patient.[facility] HospitalIn the event this information is protected by the Federal Confidentiality of Alcohol and Drug Abuse Patient Records regulations: The Federal rules restrict any use of the information to criminally investigate or prosecute any alcohol or drug abuse patient.[facility] HospitalIn the event this information is protected by the Federal Confidentiality of Alcohol and Drug Abuse Patient Records regulations: The Federal rules restrict any use of the information to criminally investigate or prosecute any alcohol or drug abuse patient.[facility] HospitalIn the event this information is protected by the Federal Confidentiality of Alcohol and Drug Abuse Patient Records regulations: The Federal rules restrict any use of the information to criminally investigate or prosecute any alcohol or drug abuse patient.[facility] HospitalIn the event this information is protected by the Federal Confidentiality of Alcohol and Drug Abuse Patient Records regulations: The Federal rules restrict any use of the information to criminally investigate or prosecute any alcohol or drug abuse patient.[facility] HospitalIn the event this information is protected by the Federal Confidentiality of Alcohol and Drug Abuse Patient Records regulations: The Federal rules restrict any use of the information to criminally investigate or prosecute any alcohol or drug abuse patient.[facility] HospitalIn the event this information is protected by the Federal Confidentiality of Alcohol and Drug Abuse Patient Records regulations: The Federal rules restrict any use of the information to criminally investigate or prosecute any alcohol or drug abuse patient.[facility] Reason for Visit (unrecogniz ed section and content) Reason Comments Urinary Frequency Frequency, urgency a nd burning - woke up with symptoms Reason Comments Sinus Problem Chest congestion, na bhargav congestion, headache, cough at HS x 1 week Reason Comments Urinary Problem [id number] Reason Comments Results Reason Comments Consult Colonoscopy consulta tion Reason Comments Urinary Problem burning and frequenc y x 1 day Reason Comments Results Urine Cx mixed Reason Comments Urinary Problem Frequency, urgency, burning started this morning Reason Comments Urinary Frequency Frequency and burnin g x 1 day FOR RECORDS PERTAINING TO PATIENTS WHO ARE OR HAVE BEEN ENROLLED IN A CHEMICAL DEPENDENCY/SUBSTANCEABUSE PROGRAM, SOME INFORMATION MAY BE OMITTED. This clinical summary was aggregated from multiple sources. Caution should be exercised in using it in the provision of clinical care. This summary normalizes information from multiple sources, and as a consequence, information in this document may materially change the coding, format and clinical context of patient data. In addition, data may be omitted in some cases. CLINICAL DECISIONS SHOULD BE BASED ON THE PRIMARY CLINICAL RECORDS. [employer] [facility]. provides no warranty or guarantee of the accuracy or completeness of information in this document.
[2024-12-24 08:28] LABS: Hematocrit 40.5 % (37-47); Hemoglobin 13.5 g/dL (12.0-15.0); Mean Corp Hgb Conc 33.3 g/dL (32-36); Mean Corpuscular Hgb 26.8 pg (27.0-32.0); Mean Corpuscular Volume 80.5 fL (81-99); Mean Platelet Vol. 9.3 fl (6.2-12.0); Platelet Count 288 K/mm3 (150-450); RBC Distribution Width CV 14.3 % (11.6-14.6); RBC Distribution Width SD 42.1 fl (35.1-43.9); Red Blood Count 5.03 M/mm3 (4.2-5.4); White Blood Count 6.3 K/mm3 (4.4-11.0)
[2024-12-24 09:17] LABS: PTHIN 75 pg/mL (11-61)
[2024-12-24 09:22] LABS: Microalbumin,Random Urine < 12.0 mg/L (NO RANGE EST.)
[2024-12-24 09:39] LABS: ALB/GLOB Ratio 1.1 RATIO (0.9-2.4); AST(SGOT) 21 U/L (<=31); Alanine Aminotransfer ALT/SGPT 28 U/L (<=34); Alkaline Phosphatase 146 U/L (35-104); Anion Gap 12 (5-15); BUN 19 mg/dL (4-19); BUN/Creat Ratio 24.2 RATIO (10-20); Calcium,Total 8.9 mg/dL (7.6-11.0); Carbon Dioxide 21.5 mmol/L (21.0-32.0); Chloride 107 mmol/L (98-108); EST Glomerular Filtration Rate 88 (>60); Globulin 3.8 g/dL (2.2-4.2); Glucose 108 mg/dL (70-99); Magnesium 2.3 mg/dL (1.5-2.2); Microalbumin:Creatinine Ratio UNABLE TO CALCULATE mg/g CRE; Potassium 4.1 mmol/L (3.3-5.1); Protein, Total 7.8 g/dL (5.9-8.4); Sodium Level 140 mmol/L (133-145); Total Bilirubin 0.52 mg/dL (0.00-1.30); Vitamin D,25 Hydroxy 38.6 ng/mL (30-100)
[2024-12-24 18:00] LABS: Cholesterol 186 mg/dL (<=200); High Density Lipoprotein 36 mg/dL; Low Density Lipoprotein Calc. 126 mg/dL; Triglycerides 120 mg/dL; Very Low Density Lipoprotein 24 mg/dL (5-40)
== END | disposition home or self-care (01) ==
LOC: LAB 08:02
PROVIDERS: PCP Nurse Practitioner Family; Referring Provider Nurse Practitioner Family; Visit Provider Nurse Practitioner Family
DX: I12.9 Hypertensive chronic kidney disease with stage 1 through stage 4 chronic kidney disease, or unspecified chronic kidney disease (principal); N18.30 Chronic kidney disease, stage 3 unspecified; E78.5 Hyperlipidemia, unspecified; K21.9 Gastro-esophageal reflux disease without esophagitis; E03.9 Hypothyroidism, unspecified; E55.9 Vitamin D deficiency, unspecified
CPT/HCPCS: 36415; 80053; 80061; 82043; 82306; 82570; 83735; 83970; 84439; 84443; 85027

== ENCOUNTER 2025-03-31 15:16 | Emergency (ER) | payer BC, SELFPAY ==
[2025-03-31 15:16] VITALS: BP 164/97; PULSE 90; RESP 16; TEMP 37.1; O2SAT 100; BMI 41.2
--- NOTE | 2025-03-31 17:48 | ED.RN ---
PT STATES THAT SHE DECIDED TO WAIT TO BE SEEN AT DR. OR URGENT [facility]ARE
--- OUTSIDE RECORDS SUMMARY | 2025-03-31 17:57 | XMS RPT_ITS | CCD ---
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 Role Phone CHARLEE LAGOS APRN, CNP Primary Care Phys ician CHARLEE HUMPHRIES Consulting Unavailable CHARLEE HUMPHRIES Referring Unavailable ELMA LUIS MD Admitting Unavailable ELMA LUIS MD Attending Unavailable ELMA LUIS MD Primary Care Unavailable PROVIDER, UNKNOWN Consulting Unavailable Charlee Humphries CNP Primary Care Provider CHARLEE LAGOS APRN, CNP Attending U navailCHARLEE Baum APRN, CNP Primary Care U DR RAMILA Garces MD Attending Unavailabl e CHARLEE LAGOS APRN, CNP Primary Care U navailable Charlee Humphries CNP Primary Care Provider CHARLEE HUMPHRIES Primary Care Unavailable RADHA NAVARRO Referring Unavailable GHANSHYAM DEY Attending Unavaila ble Yandel BARDALES-CCharlee Primary Care Provi octavio Dr. Marquise Brown DO Emergency Provider Keyon [place], Dr. Engle Admit Provider Unavailab demetris Ta MD, Dr. Engle Other Provider Unavailab demetris Puente MD, Dr. Ghanshyam De La Cruz Attending Provider Kwame [place], Dr. Ghanshyam De La Cruz Other Provider Yandel SHELL SORTER-CCharlee Attending Provider Yandel SHELL SORTER-C, Charlee Pappas Referring Provider Khai [place], Dr. Rodríguez Attending Provider Dr. Anne Ridley MD Referring Provider [phone] Yandel SHELL SORTER-C, Charlee Pappas Primary Care Provi octavio Yandel SHELL SORTER-C, Charlee Pappas Attending Provider Yandel SHELL SORTER-C, Charlee Pappas Referring Provider Anne Ridley Attending Unavailable Anne Ridley Referring Unavailable YandelCharlee leon Primary Care Unavail able Yandel, Charlee Pappas Primary Care Unavail able Ghanshyam Puente Attending Unavailable Ta, Achintya Admitting Unavailable At, Achintya Consulting Unavailable YandelCharlee leon Primary Care Unavail able Ta, Achintya Admitting Unavailable Ta, Achintya Consulting Unavailable Ta, Achintya Attending Unavailable Ghanshyam Puente Attending Unavailable Ghanshyam Puente Consulting Unavailable FaribaultCharlee leon Attending Unavail able YandelCharlee leon Referring Unavail able [place], Charlee Pappas Primary Care Unavail able FaribaultCharlee leon Attending Unavail able YandelCharlee leon Referring Unavail able [place], Charlee Pappas Primary Care Unavail able [place], Charlee Pappas Attending Unavail able Yandel, Charlee Pappas Referring Unavail able [place], Charlee Pappas Primary Care Unavail able YANDEL CHARLEE MARIE CNP Primary Care U CATHERINE Becerril Attending CHARLEE Luong APRN, CNP Primary Care U CHARLEE Paige APRN, CNP Attending U RADHA Mohr Attending Unavailable CHARLEE HUMPHRIES Referring Unavailable CHARLEE HUMPHRIES Primary Care Unavailable CHARLEE HUMPHRIES Primary Care Unavailable MAI BRANDT Attending Unavailable CHARLEE HUMPHRIES Primary Care Unavailable CHARLEE HUMPHRIES Primary Care Unavailable CHARLEE HUMPHRIES Primary Care Unavailable Medications Current Medications Medication Drug Class(es) Dates Sig (Normalized) Sig (Original) acetaminophen 325 mg oral capsule (11 sources) Start: 05-18-2019 take 1 capsule by mouth every six hours acetaminophen 325 mg oral capsule Dose : 650 mg =, Oral, q6h, # 20 cap(s), 0 Refill(s), Pharmacy: [facility]/pharmacy #[id number] Start Date: 05/18/19 Status: Ordered Quantity: 20.0 Unit: cap(s) Repeat number: 1 take 2 capsules by m outh every six hours as needed acetaminophen 325 mg cap Take 2 capsules by mouth every 6 hours as needed for pain. Active amLODIPine 5 mg oral tablet (16 sources) Dihydropyridine Calcium Channel Ronan Start: 06-09-2024 End: 06-24-2025 amLODIPine 5 mg oral tablet Dose : 5 mg = 1 tab(s), Oral, qDay, # 90 tab(s), 1 Refill(s), Pharmacy: [facility], 173, cm, 12/26/24 9:39:00 EDT, Height, kg, 12/26/24 9:39:00 EDT, Dosing Weight Start Date: 12/26/24 Stop Date: 06/24/25 Status: Ordered Quantity: 90.0 Unit: tab(s) Repeat number: 2 Start: 06-11-2023 End: 12-08-2023 amLODIPine 5 mg oral tablet Dose : 5 mg = 1 tab(s), Oral, qDay, # 90 tab(s), 1 Refill(s), Pharmacy: [facility], 168.5, cm, 06/11/23 10:39:00 EST, Height, kg, 06/11/23 10:39:00 EST, Dosing Weight Start Date: 06/11/23 Stop Date: 12/08/23 Status: Ordered Start: 05-26-2022 End: 11-22-2022 amLODIPine 5 mg oral tablet Dose : 5 mg = 1 tab(s), Oral, qDay, X 90 day(s), # 90 tab(s), 1 Refill(s), 11/22/22 11:20:00 EDT, Pharmacy: [facility], HTN, goal below 140/90, 172, cm, 05/26/22 10:52:00 EST, Height, kg, 05/26/22 10:52:00 EST, Dosing Weight Start Date: 05/26/22 Stop Date: 11/22/22 Status: Ordered Start: 05-23-2021 End: 02-17-2022 amLODIPine 5 mg oral tablet Dose : 5 mg = 1 tab(s), Oral, qDay, X 90 day(s), # 90 tab(s), 2 Refill(s), 02/17/22 11:37:00 EDT, Pharmacy: [facility], HTN, goal below 140/90, 171, cm, 05/23/21 10:37:00 EST, Height, kg, 05/23/21 10:37:00 EST, Dosing Weight Start Date: 05/23/21 Stop Date: 02/17/22 Status: Ordered Comment on above: Take 5 mg by mouth o nce daily. amoxicillin 875 mg / clavulanate 125 mg oral tablet (4 sources) Penicillin-class Antibacterial Start: End: take 1 tablet by mouth twice daily amoxicillin-clavul anate potassium (AUGMENTIN) 875-125 mg per tablet Take 1 tablet by mouth two times a day for 5 days. 10 tablet 02/26/2025 03/03/2025 Active Start: 06-09-2024 End: 06-11-2024 Amoxicillin-Pot Clavulanate 875-125 [...] Comment on above: Take 1 tablet by dara th two times a day for 7 days. busPIRone hydrochloride 10 mg oral tablet (20 sources) Start: 12-26-2024 busPIRone 10 mg oral tablet Dose : 10 mg = 1 tab(s), Oral, TID, PRN Anxiety, As needed, # 270 tab(s), 1 Refill(s), Pharmacy: [facility], CHAYO (generalized anxiety disorder), 173, cm, 12/26/24 9:39:00 EDT, Height, kg, 12/26/24 9:39:00 EDT, Dosing Weight Start Date: 12/26/24 Status: Ordered Quantity: 270.0 Unit: tab(s) Repeat number: 2 Indications: Generalized anxiety disorder; Start: 06-11-2023 busPIRone 10 m g oral tablet Dose : 10 mg = 1 tab(s), Oral, TID, PRN Anxiety, As needed, # 270 tab(s), 1 Refill(s), Pharmacy: [facility], CHAYO (generalized anxiety disorder), 168.5, cm, 06/11/23 10:39:00 EST, Height, kg, 06/11/23 10:39:00 EST, Dosing Weight Start Date: 06/11/23 Status: Ordered Start: 05-26-2022 End: 07-25-2022 busPIRone 10 mg oral tablet Dose : 10 mg = 1 tab(s), Oral, TID, PRN Anxiety, As needed, # 270 tab(s), 1 Refill(s), Pharmacy: [facility], CHAYO (generalized anxiety disorder), 172, cm, 05/26/22 10:52:00 EST, Height, kg, 05/26/22 10:52:00 EST, Dosing Weight Start Date: 05/26/22 Stop Date: 07/25/22 Status: Ordered Start: 05-23-2021 End: 08-21-2021 busPIRone 10 mg oral tablet Dose : 10 mg = 1 tab(s), Oral, TID, PRN Anxiety, As needed, # 90 tab(s), 2 Refill(s), Pharmacy: [facility], CHAYO (generalized anxiety disorder), 171, cm, 05/23/21 [...] Comment on above: Take 1 capsule by [facility] twice daily. cholecalciferol 1.25 mg oral capsule (9 sources) Vitamin D Start: 12-27-19 End: 06-24-20 take 1 capsule by mouth once, then take 1 capsule by mouth every other week cholecalciferol 1250 mcg (50,000 intl units) oral capsule Dose : 50,000 International_Unit = 1 cap(s), Oral, every other week, # 7 cap(s), 1 Refill(s), Pharmacy: [facility], Vitamin D deficiency, 173, cm, 12/26/24 9:39:00 EDT, Height, kg, 12/26/24 9:39:00 EDT, Dosing Weight Start Date: 12/26/24 Stop Date: 06/24/25 Status: Ordered Quantity: 7.0 Unit: cap(s) Repeat number: 2 Indications: Vitamin D deficiency, unspecified; Start: 06-11-2023 End: 12-08-2023 cholecalciferol 1250 mcg (50 ,000 intl units) oral capsule Dose : 50,000 International_Unit = 1 cap(s), Oral, qmonth, # 4 cap(s), 1 Refill(s), Pharmacy: [facility], Vitamin D deficiency, 168.5, cm, 06/11/23 10:39:00 EST, Height, kg, 06/11/23 10:39:00 EST, Dosing Weight Start Date: 06/11/23 Stop Date: 12/08/23 Status: Ordered take 1 capsule by [facility] every month cholecalciferol, Vitamin D3, (VITAMIN D3) 1,250 mcg (50,000 unit) cap capsule Take 50,000 Units by mouth once every month. Active Cranberry preparation (1 source) Non-Standardized Food Allergenic Extract, Non-Standardized Plant Allergenic Extract Start: 12-26-2024 cranberry oral capsule 0 Refill(s) Start Date: 12/26/24 Status: Ordered Repeat number: 1 2 ml dupilumab 150 mg/ml prefilled syringe [...] 0 Refill(s) Start Date: 04/29/22 Status: Ordered fluticasone propionate 0.05 mg/actuat metered dose nasal spray (1 source) Corticosteroid Start: 01-30-2025 End: 02-06-2025 take 50 ug nasal route once daily in the morning Flonase 50 mcg/inh nasal spray 50 mcg Dose = 1 spray(s), Nostril, each, qAM, # 16 gram(s), 0 Refill(s), Pharmacy: [facility], 173, cm, 01/30/25 15:14:00 EDT, Height, kg, 01/30/25 15:14:00 EDT, Dosing Weight Start Date: 01/30/25 Stop Date: 02/06/25 Status: Ordered Quantity: 16.0 Unit: g Repeat number: 1 12 hr guaiFENesin 600 mg extended release oral tablet (7 sources) Start: 06-09-2024 take 1 tablet by [...] Comment on above: Take 2 tablets by [facility] twice daily. hydroCHLOROthiazide 12.5 mg oral tablet (15 sources) Thiazide Diuretic Start: Hydrochlorothiazide Active 0 MG PO DAILY April 19, 2020 8:41am Start: 04-19-2020 End: 06-09-2024 take 1 capsule by mouth once daily Hydrochlorothiazide 12.5 MG capsule Discontinued 12.5 mg PO DAILY April 19, 2020 12:00am June 09, 2024 6:28pm Start: 04-19-2020 End: 06-09-2024 Hydrochlorothiazide 12.5 MG capsule Discontinued 0 mg PO DAILY April 19, 2020 12:00am June 09, 2024 6:28pm Start: 04-19-2020 Hydrochlorothi azide Active 0 MG PO DAILY April 18, 2020 11:00pm Start: 04-19-2020 Hydrochlorothi azide Active 0 MG PO DAILY April 19, 2020 12:00am Iron 100 Plus (1 source) Start: 12-26-2024 Iron 100 Plus Oral, qDay, 0 Refill(s) Start Date: 12/26/24 Status: Ordered Repeat number: 1 levothyroxine sodium 0.05 mg oral tablet (20 sources) l-Thyroxine Start: 12-26-2024 levothyroxine 50 mcg (0.05 mg) oral tablet Dose : 50 mcg = 1 tab(s), Oral, qDay, # 90 tab(s), 1 Refill(s), Pharmacy: [facility], Hypothyroidism in adult, 173, cm, 12/26/24 9:39:00 EDT, Height, kg, 12/26/24 9:39:00 EDT, Dosing Weight Start Date: 12/26/24 Status: Ordered Quantity: 90.0 Unit: tab(s) Repeat number: 2 Indications: Hypothyroidism, unspecified; Start: 06-11-2023 levothyroxine 50 mcg (0.05 mg) oral tablet Dose : 50 mcg = 1 tab(s), Oral, qDay, # 90 tab(s), 1 Refill(s), Pharmacy: [facility], Hypothyroidism in adult, 168.5, cm, 06/11/23 10:39:00 EST, Height, kg, 06/11/23 10:39:00 EST, Dosing Weight Start Date: 06/11/23 Status: Ordered Start: 05-26-2022 End: 11-22-2022 levothyroxine 50 mcg (0.05 m g) oral tablet Dose : 50 mcg = 1 tab(s), Oral, qDay, # 90 tab(s), 1 Refill(s), Pharmacy: [facility], Hypothyroidism in adult, 172, cm, 05/26/22 10:52:00 EST, Height, kg, 05/26/22 10:52:00 EST, Dosing Weight Start Date: 05/26/22 Stop Date: 11/22/22 Status: Ordered Start: 05-23-2021 End: 02-17-2022 levothyroxine 50 mcg (0.05 m g) oral tablet Dose : 50 mcg = 1 tab(s), Oral, qDay, # 90 tab(s), 2 Refill(s), Pharmacy: [facility], Hypothyroidism in adult, 171, cm, 05/23/21 10:37:00 EST, Height, kg, 05/23/21 10:37:00 EST, Dosing Weight Start Date: 05/23/21 Stop Date: 02/17/22 Status: Ordered Start: 04-19-2020 take 2 tablets by mo uth once daily Levothyroxine 25 MCG tablet Active 50 ug PO DAILY April 19, 2020 12:00am Start: 04-19-2020 take 25 ug by mouth once daily Levothyroxine Active 25 MCG PO DAILY April 18, 2020 11:00pm take 1 tablet by dara th once daily before breakfast levothyroxine (LEVOXYL) 50 mcg tablet Take 50 mcg by mouth daily before breakfast. Active Comment on above: Take 50 mcg by mouth daily before breakfast. losartan potassium 100 mg oral tablet (16 sources) Angiotensin 2 Receptor Ronan Start: 06-09-2024 losartan 100 mg oral tablet Dose : 100 mg = 1 tab(s), Oral, qDay, # 90 tab(s), 1 Refill(s), Pharmacy: [facility], HTN, goal below 140/90, 173, cm, 12/26/24 9:39:00 EDT, Height, kg, 12/26/24 9:39:00 EDT, Dosing Weight Start Date: 12/26/24 Status: Ordered Quantity: 90.0 Unit: tab(s) Repeat number: 2 Indications: Essential (primary) hypertension; Start: 06-11-2023 losartan 100 m g oral tablet Dose : 100 mg = 1 tab(s), Oral, qDay, # 90 tab(s), 1 Refill(s), Pharmacy: [facility], HTN, goal below 140/90, 168.5, cm, 06/11/23 10:39:00 EST, Height, kg, 06/11/23 10:39:00 EST, Dosing Weight Start Date: 06/11/23 Status: Ordered Start: 05-26-2022 End: 11-22-2022 losartan 100 mg oral tablet Dose : 100 mg = 1 tab(s), Oral, qDay, # 90 tab(s), 1 Refill(s), Pharmacy: [place] [id number], HTN, goal below 140/90, 172, cm, 05/26/22 10:52:00 EST, Height, kg, 05/26/22 10:52:00 EST, Dosing Weight Start Date: 05/26/22 Stop Date: 11/22/22 Status: Ordered Start: 05-23-2021 End: 02-17-2022 losartan 100 mg oral tablet Dose : 100 mg = 1 tab(s), Oral, qDay, # 90 tab(s), 2 Refill(s), Pharmacy: [facility], HTN, goal below 140/90, 171, cm, 05/23/21 10:37:00 EST, Height, kg, 05/23/21 10:37:00 EST, Dosing Weight Start Date: 05/23/21 Stop Date: 02/17/22 Status: Ordered Comment on above: Take 100 mg by mouth once daily. nitrofurantoin, macrocrystals 25 mg / nitrofurantoin, monohydrate [...] on above: Take 1 capsule by mo [facility] twice daily with meals for 5 days. omeprazole 40 mg delayed release oral capsule (16 sources) Proton Pump Inhibitor Start: 06-09-2024 End: 06-24-2025 omeprazole 40 mg oral delayed release capsule Dose : 40 mg = 1 cap(s), Oral, qDay, # 90 cap(s), 1 Refill(s), Pharmacy: [facility], GERD (gastroesophageal reflux disease), 173, cm, 12/26/24 9:39:00 EDT, Height, kg, 12/26/24 9:39:00 EDT, Dosing Weight Start Date: 12/26/24 Stop Date: 06/24/25 Status: Ordered Quantity: 90.0 Unit: cap(s) Repeat number: 2 Indications: Gastro-esophageal reflux disease without esophagitis; Start: 06-11-2023 omeprazole 40 mg oral delayed release capsule Dose : 40 mg = 1 cap(s), Oral, qDay, # 90 cap(s), 1 Refill(s), Pharmacy: [facility], GERD (gastroesophageal reflux disease), 168.5, cm, 06/11/23 10:39:00 EST, Height, kg, 06/11/23 10:39:00 EST, Dosing Weight Start Date: 06/11/23 Status: Ordered Start: 05-26-2022 End: 11-22-2022 omeprazole 40 mg oral delaye d release capsule Dose : 40 mg = 1 cap(s), Oral, qDay, # 90 cap(s), 1 Refill(s), Pharmacy: [facility], GERD (gastroesophageal reflux disease), 172, cm, 05/26/22 10:52:00 EST, Height, kg, 05/26/22 10:52:00 EST, Dosing Weight Start Date: 05/26/22 Stop Date: 11/22/22 Status: Ordered Start: 05-23-2021 End: 02-17-2022 omeprazole 40 mg oral delaye d release capsule Dose : 40 mg = 1 cap(s), Oral, qDay, # 90 cap(s), 2 Refill(s), Pharmacy: [facility], GERD (gastroesophageal reflux disease), 171, [...] 5 days. 15 tablet 08/17/2024 08/22/2024 Active Probiotic (1 source) Start: 12-27-19 Probiotic 0 Refill(s) Start Date: 12/26/24 Status: Ordered Repeat number: 1 sertraline 50 mg oral tablet (20 sources) Serotonin Reuptake Inhibitor Start: 12-27-19 sertraline 50 mg oral tablet Dose : 50 mg = 1 tab(s), Oral, qDay, # 90 tab(s), 1 Refill(s), Pharmacy: [facility], 173, cm, 12/26/24 9:39:00 EDT, Height, kg, 12/26/24 9:39:00 EDT, Dosing Weight Start Date: 12/26/24 Status: Ordered Quantity: 90.0 Unit: tab(s) Repeat number: 2 Start: 06-09-2024 take 2 tablets by mo [facility] once daily Sertraline 25 MG tablet Active 50 mg PO DAILY June 09, 2024 1:00am Start: 06-11-2023 sertraline 50 mg oral tablet Dose : 50 mg = 1 tab(s), Oral, qDay, # 90 tab(s), 1 Refill(s), Pharmacy: [facility], 168.5, cm, 06/11/23 10:39:00 EST, Height, kg, 06/11/23 10:39:00 EST, Dosing Weight Start Date: 06/11/23 Status: Ordered Start: 05-26-2022 End: 11-22-2022 sertraline 50 mg oral tablet Dose : 50 mg = 1 tab(s), Oral, qDay, # 90 tab(s), 1 Refill(s), Pharmacy: [facility], 172, cm, 05/26/22 10:52:00 EST, Height, kg, 05/26/22 10:52:00 EST, Dosing Weight Start Date: 05/26/22 Stop Date: 11/22/22 Status: Ordered Start: 09-20-2021 End: 03-19-2022 sertraline 50 mg oral tablet Dose : 50 mg = 1 tab(s), Oral, qDay, # 90 tab(s), 1 Refill(s), Pharmacy: [facility], 172, cm, 08/30/21 10:20:00 EST, [...] Active traZODone hydrochloride 50 mg oral tablet (4 sources) Serotonin Reuptake Inhibitor Start: 12-26-2024 traZODone 50 mg oral tablet Dose : 50 mg = 1 tab(s), Oral, qHS, # 90 tab(s), 1 Refill(s), Pharmacy: [facility], Insomnia, persistent, 173, cm, 12/26/24 9:39:00 EDT, Height, kg, 12/26/24 9:39:00 EDT, Dosing Weight Start Date: 12/26/24 Status: Ordered Quantity: 90.0 Unit: tab(s) Repeat number: 2 Indications: Insomnia, unspecified; Start: 06-11-2023 traZODone 50 m g oral tablet Dose : 50 mg = 1 tab(s), Oral, qHS, # 90 tab(s), 1 Refill(s), Pharmacy: [facility], Insomnia, persistent, 168.5, cm, 06/11/23 10:39:00 EST, Height, kg, 06/11/23 10:39:00 EST, Dosing Weight Start Date: 06/11/23 Status: Ordered Start: 05-26-2022 End: 11-22-2022 traZODone 50 mg oral tablet Dose : 50 mg = 1 tab(s), Oral, qHS, # 90 tab(s), 1 Refill(s), Pharmacy: [facility], Insomnia, persistent, 172, cm, 05/26/22 10:52:00 EST, Height, kg, 05/26/22 10:52:00 EST, Dosing Weight Start Date: 05/26/22 Stop Date: 11/22/22 Status: Ordered Start: 05-23-2021 End: 07-22-2021 traZODone 50 mg oral tablet Dose : 50 mg = 1 tab(s), Oral, qHS, # 30 tab(s), 1 Refill(s), Pharmacy: [facility], Insomnia, persistent, 171, cm, 05/23/21 10:37:00 EST, Height, kg, 05/23/21 10:37:00 EST, Dosing Weight Start Date: 05/23/21 Stop Date: 07/22/21 Status: Ordered 24 hr venlafaxine 150 mg extended release oral capsule (20 sources) Serotonin and Norepinephrine Reuptake Inhibitor Start: 06-09-2024 venlafaxine 150 mg oral capsule, extended release Dose : 150 mg = 1 cap(s), Oral, qDay, # 90 cap(s), 1 Refill(s), Pharmacy: [place] [address], CHAYO (generalized anxiety disorder), 173, cm, 12/26/24 9:39:00 EDT, Height, kg, 12/26/24 9:39:00 EDT, Dosing Weight Start Date: 12/26/24 Status: Ordered Quantity: 90.0 Unit: cap(s) Repeat number: 2 Indications: Generalized anxiety disorder; Start: 05-23-2021 End: 02-17-2022 venlafaxine 150 mg oral caps ule, extended release Dose : 150 mg = 1 cap(s), Oral, qDay, # 90 cap(s), 2 Refill(s), Pharmacy: [place] [address], CHAYO (generalized anxiety disorder), 171, cm, 05/23/21 [...] qDay, # 90 cap(s), 1 Refill(s), Pharmacy: [facility], CHAYO (generalized anxiety disorder), 168.5, cm, 06/11/23 10:39:00 EST, Height, kg, 06/11/23 10:39:00 EST, Dosing Weight Start Date: 06/11/23 Status: Ordered Comment on above: Take 1 capsule by mo [facility] once daily. Vitamin C 500 mg oral tablet, chewable (1 source) Start: 12-26-2024 Vitamin C 500 mg oral tablet, chewable Dose : 500 mg = 1 tab(s), Chewed, Daily, # 30 tab(s), 0 Refill(s) Start Date: 12/26/24 Status: Ordered Quantity: 30.0 Unit: tab(s) Repeat number: 1 {20 (nirmatrelvir 150 MG Oral Tablet) / 10 (ritonavir 100 MG Oral Tablet) } Pack (1 source) Start: 01-30-2025 End: 02-04-2025 nirmatrelvir-ritonavir 150 mg-100 mg (300 mg-100 mg Dose) oral tablet Dose = 1 packet(s), Oral, BID, Take 1 Packet = two 150mg nirmatrelvir tabs and one 100mg ritonavir tab. 3 tablets to be taken together by mouth twice a day for 5 days, X 5 day(s), # 5 EA, 0 Refill(s), Pharmacy: [facility], 173, cm, 01/30/25 15:14:00 EDT, Height, kg, 01/30/25 15:14:00 EDT, Dosing Weight Start Date: 01/30/25 Stop Date: 02/04/25 Status: Ordered Quantity: 5.0 Unit: EA Repeat number: 1 Completed/Discontinued Medications Medication Drug Class(es) Dates Sig (Normalized) Sig (Original) benzonatate 100 mg oral capsule (5 sources) Non-narcotic Antitussive Start: 0 End: take 1 capsule by mouth three times daily as needed benzonatate (TESSALON PERLES) 100 mg capsule Indications: Influenza B Take 1 capsule by mouth three times daily as needed. 40 capsule 08/15/2019 03/29/2024 Discontinued (Discontinued by Patient) Comment on above: Take 1 capsule by mo ut three times daily as needed. betamethasone 0.5 mg/ml topical cream (5 sources) Corticosteroid Start: 9 End: 4 betamethasone dipropionate (DIPROSONE) 0.05 % cream Apply to affected area as directed. 03/15/2019 03/29/2024 Discontinued (Discontinued by Patient) Comment on above: Apply to affected ar ea as directed. hydroCHLOROthiazide 12.5 mg / lisinopril 10 mg oral tablet (7 sources) Thiazide Diuretic, Angiotensin Converting Enzyme Inhibitor Start: 4 End: 8 Lisinopril-Hydroc hlorothiazide 1 TABLET tablet Discontinued 1 {tbl} PO DAILY January 23, 2014 12:00am November 21, 2017 11:38am Start: 01-23-2014 End: 11-21-2017 take 1 tablet by mouth once daily Lisinopril-Hydrochlorothiazide Discontin ued 1 TABLET PO DAILY January 22, 2014 11:00pm November 21, 2017 10:38am lisinopril 5 mg oral tablet (12 sources) Angiotensin Converting Enzyme Inhibitor Start: 04-19-2020 End: 06-09-2024 take 1 tablet by mouth once daily Lisinopril 5 MG tablet Discontinued 5 mg PO DAILY April 19, 2020 12:00am June 09, 2024 6:30pm Start: 04-11-2009 End: 03-29-2024 lisinopril(PRINIVIL 10 MG TA B) Take one(1) tablet daily. 0 0 04/11/2009 03/29/2024 Discontinued (Discontinued by Patient) Comment on above: Take one(1) tablet d aily. meclizine hydrochloride 25 mg oral tablet (16 sources) Antiemetic Start: 06-30-2024 End: 12-27-2024 meclizine 25 mg oral tablet Dose : 25 mg = 1 tab(s), Oral, TID, PRN as needed for dizziness, # 60 tab(s), 5 Refill(s), Pharmacy: [facility], 173, cm, 06/30/24 9:48:00 EST, Height, kg, 06/30/24 9:48:00 EST, Dosing Weight Start Date: 06/30/24 Stop Date: 12/27/24 Status: Ordered Quantity: 60.0 Unit: tab(s) Repeat number: 6 Start: 06-09-2024 take 1 tablet by dara th once daily as needed for dizziness Meclizine (Antivert) 25 mg tablet,chewable Active 25 mg PO DAILY as needed for dizziness June 09, 2024 1:00am Start: 06-11-2023 End: 12-08-2023 meclizine 25 mg oral tablet Dose : 25 mg = 1 tab(s), Oral, TID, PRN as needed for dizziness, # 60 tab(s), 5 Refill(s), Pharmacy: [facility], 168.5, cm, 06/11/23 10:39:00 EST, Height, kg, 06/11/23 10:39:00 EST, Dosing Weight Start Date: 06/11/23 Stop Date: 12/08/23 Status: Ordered Start: 03-06-2022 End: 09-02-2022 meclizine 25 mg oral tablet Dose : 25 mg = 1 tab(s), Oral, TID, PRN as needed for dizziness, # 60 tab(s), 5 Refill(s), Pharmacy: [facility], 172, cm, 03/06/22 11:12:00 EDT, Height, kg, 03/06/22 11:12:00 EDT, Dosing Weight Start Date: 03/06/22 Stop Date: 09/02/22 Status: Ordered Start: 05-23-2021 End: 12-19-2021 meclizine 25 mg oral tablet Dose : 25 mg = 1 tab(s), Oral, TID, PRN as needed for dizziness, # 60 tab(s), 6 Refill(s), Pharmacy: [facility], 171, cm, 05/23/21 10:37:00 EST, Height, kg, 05/23/21 10:37:00 EST, Dosing Weight Start Date: 05/23/21 Stop Date: 12/19/21 Status: Ordered Comment on above: Take 25 mg by mouth as needed (vertigo). Problems Active Problems Problem Classification Problem Date Documented Date Episodic/Chronic Allergic reactions (1 source) Atopic dermatitis 02-02-2024 Chronic Anxiety disorders (4 sources) Generalized anxiety disorder 11-13-2020 Chronic Biliary tract disease (3 sources) Biliary sludge 03-06-2022 Chronic Chronic kidney disease (1 source) Chronic kidney disease stage 3 06-30-2024 Chronic Disorders of lipid metabolism (4 sources) Hyperlipidemia 11-13-2020 Chronic Esophageal disorders (4 sources) Gastroesophageal reflux disease 11-10-2019 Chronic Essential hypertension (14 sources) Hypertensive disorder; Translations: [Essential (primary) hypertension] Onset: 06-11-2024 01-24-2019 Chronic Genitourinary symptoms and ill-defined conditions (5 sources) Increased frequency of urination; Translations: [Frequency of micturition] 02-08-2023 Episodic Hypertension with complications and secondary hypertension (1 source) Hypertensive chronic kidney disease with stage 1 through stage 4 chronic kidney disease, or unspecified chronic kidney disease; Translations: [Hypertensive chronic kidney disease with stage 1 through stage 4 chronic kidney disease, or unspecified chronic kidney disease] Onset: 12-29-2024 Chronic Immunizations and screening for infectious disease (2 sources) Exposure to streptococcal pharyngitis; Translations: [Contact with and (suspected) exposure to other bacterial communicable diseases] Onset: 02-26-2025 02-26-2025 Episodic Nonspecific chest pain (7 sources) Chest pain; Translations: [Chest pain, unspecified] 11-21-2014 Episodic Nutritional deficiencies (3 sources) Vitamin D deficiency 05-26-2022 Chronic Other acquired deformities (3 sources) Spondylolysis 03-06-2022 Episodic Other connective tissue disease (3 sources) Tenosynovitis of left radial styloid 12-05-2021 Episodic Other diseases of kidney and ureters (3 sources) Renal impairment 05-15-2020 Episodic Other female genital disorders (4 sources) History of gynecological disorder 11-10-2019 Episodic Other nutritional; endocrine; and metabolic disorders (2 sources) Body mass index 40+ - severely obese 12-04-2022 Chronic Other skin disorders (4 sources) 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 Other upper respiratory infections (3 sources) Chronic sinusitis, unspecified; Translations: [Unspecified sinusitis (chronic)] Onset: 02-26-2025 09-24-2023 Chronic Residual codes; unclassified (4 sources) Persistent insomnia 05-23-2021 Chronic Residual codes; unclassified (2 sources) Increased body mass index 11-10-2019 Episodic Spondylosis; intervertebral disc disorders; other back problems (1 source) Lumbago with sciatica 02-16-2024 Episodic Thyroid disorders (4 sources) Hypothyroidism 05-10-2019 Chronic Unclassified (4 sources) Liver function test increased 05-23-2021 Comment on above: 02/25/2022 CT Abdome n/Pelvis with Contrast: IMPRESSION: 1. There is no evidence of acute abdominal or pelvic abnormalities. 2. 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 3. A 6 mm hypodensity focus convexity is present but too small to characterize with certainty in regards to the liver. Large meant, atrophy, abnormal density or significant lesion noted. 4. No visible dilatation or calcification noted in the biliary region. 5. Bowel/mesentery shows a moderate stool retention proximally. No visible mass, obstruction or bowel wall thickening noted. 6. Abdominal wall shows a small umbilical hernia with fat present. Unclassified (3 sources) Non-smoker 05-26-2022 Unclassified (4 sources) Patient encounter status 06-11-2023 Urinary tract infections (6 sources) Acute urinary tract infection; Translations: [Urinary tract infection, site not specified] Onset: 10-03-2024 05-02-2024 Episodic Past or Other Problems Problem Classification Problem Date Documented Da te Episodic/Chronic Other screening for suspected conditions (not mental disorders or infectious disease) (6 sources) Patient encounter status; Translations: [Encounter for screening for malignant neoplasm of colon] Onset: 06-24-2024 03-29-2024 Episodic Pancreatic disorders (not diabetes) (5 sources) Acute pancreatitis without necrosis or infection, unspecified; Translations: [Pancreatitis] Onset: 02-25-2022 Episodic Residual codes; unclassified (13 sources) Family history of malignant neoplasm of breast in first degree relative; Translations: [Family history of malignant neoplasm of breast] Onset: 09-07-2015 07-08-2021 Episodic Residual codes; unclassified (1 source) Family history of malignant neoplasm of breast; Translations: [Family history of breast cancer in mother] Onset: 07-08-2021 Episodic Results Test Name Value Interpretation Reference Range Facility CNOVon 02-26-2025 CNOV Office Visit ([facility]) LING DIAS ([id number]) 1970 F Date Time Provider Department 02/26/25 9:00 AM MAI BRANDT During your visit today, we recorded the following information about you: Temperature Pulse Respiration Blood pressure 97.3 degrees 94/minute 22/minute 136/81 Weight 122 kg Mai Brandt APRN.PRODUCT LINE MANAGER 02/26/2025 9:26 AM Signed Adult Sinusitis Patient Education What is Sinusitis? Sinusitis [idry-uzw-shsv-tis] is inflammation of the sinuses or swelling of the lining of the sinus cavity or nose. During an infection the sinuses become blocked with fluid causing swelling of the lining of the sinuses. Symptoms: (viral and bacterial infections) Stuffy nose Runny nose Postnasal drip Fever Toothache Headache Tiredness Cough Sore throat Face and head pressure and or pain Common causes: 98% of sinus infections are viral caused by viruses. Risk Factors of Sinusitis Include: Allergies, air pollution, indoor humidity and outdoor temperature changes, andstructural changes in the nose may contribute to sinus pain, pressure and congestion. When to get help? Temperature greater than 100.4 ?F Symptoms lasting more than 10 days or worsening symptoms greater than 7-10 days. If you do not improve or worsen after a course of antibiotics, you should be re-examined. Diagnosis and Treatment: Your healthcare provider will ask a number of questions about your symptoms and how long they have occurred. If symptoms of sinusitis persist greater than 10 days, it is possible you have a bacterial sinus infection and an antibiotic is prescribed. If it is viral, antibiotics will not help. You may be instructed to take waag-pht-whdxzbk medications for symptoms. including fever reducers acetaminophen or ibuprofen, nasal saline spray, cough and cold preparations and decongestants as prescribed by the physician, nurse practitioner or physician assistant education director. Self-Care and Prevention: Rest Fluids for hydration Good hand washing Humidifier Avoid smoking and exposure to second hand smoke Avoid sick contacts Mai Brandt APRN.PRODUCT LINE MANAGER 02/26/2025 9:34 AM Signed [facility] [place] Subjective Ling Dias is a 54 year old female. Patient presents with: Nasal Congestion: Cough, ear pain x 6 days Had headache and runny nose to start Nasal Congestion Associated symptoms include congestion. URI Symptoms: - Onset 6 days ago. - Initial symptoms included cephalgia with pressure sensation. - Progressed to rhinorrhea, followed by nasal congestion. - Symptoms have now localized to the throat, causing dysphonia and odynophagia. - Currently taking OTC with no improvement. - Negative at-home COVID-19 test yesterday. - Denies tobacco use. Daughter here for similiar. Denies CP, dyspnea, SOB Denies emesis. PAST MEDICAL HISTORY Diagnosis Date COVID-19 De [...] Take 1 capsule by mouth once daily. amoxicillin-clavulana te potassium (AUGMENTIN) 875-125 mg per tablet Take 1 tablet by mouth two times a day for 5 days. FAMILY HISTORY Problem Relation Age of Onset Breast Cancer Mother Dx at 42 Hypertension Mother Heart Father open heart surgery Hypertension Father Alzheimer's Disease Father Hypertension Brother X-2 Hyperten (more content not included)... Normal [facility] STREP A MOLECULAR (POC)on Procedural Control Valid [facility] Strep A (POCT) Negative Negative [facility] No Panel Informationon 01-30 Culture Urine >100,000 cfu/ml Multiple bacterial morphotypes present. Probable Contamination. Suggest recollection if clinically indicated. [facility] Work Phone: Anion gap in Serum or Plasma Ordered By: Charlee Humphries on 12-24-2024 Anion gap [Moles/Vol] 12 mmol/L 5- [facility] BUN/creatinine ratioOrdered By: Charlee Humphries on 12-24-2024 Urea nitrogen/Creatinine [Mass ratio] 24.2 mg/mg High 10- [facility] Bilirubin, totalOrdered By: Charlee Humphries on 12-24-2024 Bilirubin [Mass/Vol] 0.52 mg/dL 0.00-1.30 [facility] CBC-Complete Blood Cnt No Di ffon 12-24-2024 Erythrocyte distribution width (RBC) [Ratio] 14.3 % Normal 11.6-14.6 [facility] Comment on above: Order Comment: PLEAS E FAX LAB RESULTS Performed By: #### L [id number], L100.0100 #### [facility] [address] [place], [address] Hematocrit (Bld) [Volume fraction] 40.5 % Normal 37-47 [facility] Comment on above: Order Comment: PLEAS E FAX LAB RESULTS Performed By: #### L [id number], L100.0100 #### [facility] [address] [place], [address] Hemoglobin (Bld) [Mass/Vol] 13.5 g/dL Normal 12.0-15.0 [facility] Comment on above: Order Comment: PLEAS E FAX LAB RESULTS Performed By: #### L [id number], L100.0100 #### [facility] [address] [place], [address] MCH (RBC) [Entitic mass] 26.8 pg Low 27.0-32.0 [facility] Comment on above: Order Comment: PLEAS E FAX LAB RESULTS Performed By: #### L [id number], L100.0100 #### [facility] [address] [place], [address] MCHC (RBC) [Mass/Vol] 33.3 g/dL Normal 32-36 [facility] Comment on above: Order Comment: PLEAS E FAX LAB RESULTS Performed By: #### L [id number], L100.0100 #### [facility] [address] [place], [address] MCV (RBC) [Entitic vol] 80.5 fL Low 81-99 [facility] Comment on above: Order Comment: PLEAS E FAX LAB RESULTS Performed By: #### L [id number], L100.0100 #### [facility] [address] [place], [address] Platelet mean volume (Bld) [Entitic vol] 9.3 fL Normal 6.2-12.0 [facility] Comment on above: Order Comment: PLEAS E FAX LAB RESULTS Performed By: #### L [id number], L100.0100 #### [facility] [address] [place], [address] Platelets (Bld) [#/Vol] 288 10*3/uL Normal 150-450 [facility] Comment on above: Order Comment: PLEAS E FAX LAB RESULTS Performed By: #### L [id number], L100.0100 #### [facility] [address] [place], [address] RBC (Bld) [#/Vol] 5.03 10*6/uL Normal 4.2-5.4 [facility] Comment on above: Order Comment: PLEAS E FAX LAB RESULTS Performed By: #### L [id number], L100.0100 #### [facility] [address] [place], [address] RDW SD 42.1 fl Normal 35.1-43.9 [facility] Comment on above: Order Comment: PLEAS E FAX LAB RESULTS Performed By: #### L [id number], L100.0100 #### [facility] [address] [place], [address] WBC (Bld) [#/Vol] 6.3 10*3/uL Normal 4.4-11.0 [facility] Comment on above: Order Comment: PLEAS E FAX LAB RESULTS Performed By: #### L [id number], L100.0100 #### [facility] [address] [place], [address] Calculated very low density lipoprotein (VLDL) cholesterol measurementOrdered By: Charlee Humphries on 12-24-2024 Calculated very low density lipoprotein (VLDL) cholesterol measurement 24 mg/dL 5-40 [facility] Carbon dioxide, total [Moles /volume] in Central venous bloodOrdered By: Charlee Humphries on 12-24-2024 CO2 [Moles/Vol] 21.5 mmol/L 21.0-32.0 [facility] Chloride assayOrdered By: Milton Humphries on 12-24-2024 Chloride [Moles/Vol] 107 mmol/L 98-108 [facility] Comprehensive Metabolic Prof ilon 12-24-2024 Albumin [Mass/Vol] 4.0 g/dL Normal 3.5-5.0 [facility] Comment on above: Order Comment: PLEAS E FAX LAB RESULTS Performed By: #### L [id number], L100.0100 #### [facility] [address] [place], [address] Albumin/Globulin [Mass ratio] 1.1 {ratio} Normal 0.9-2.4 [facility] Comment on above: Order Comment: PLEAS E FAX LAB RESULTS Performed By: #### L [id number], L100.0100 #### [facility] [address] [place], [address] ALK PHOS 146 U/L High 35-104 [facility] Comment on above: Order Comment: PLEAS E FAX LAB RESULTS Performed By: #### L [id number], L100.0100 #### [facility] [address] [place], [address] ALT [Catalytic activity/Vol] 28 U/L Normal <=34 [facility] Comment on above: Order Comment: PLEAS E FAX LAB RESULTS Performed By: #### L [id number], L100.0100 #### [facility] [address] [place], [address] AST [Catalytic activity/Vol] 21 U/L Normal <=31 [facility] Comment on above: Order Comment: PLEAS E FAX LAB RESULTS Performed By: #### L [id number], L100.0100 #### [facility] [address] [place], [address] Bilirubin [Mass/Vol] 0.52 mg/dL Normal 0.00-1.30 [facility] Comment on above: Order Comment: PLEAS E FAX LAB RESULTS Performed By: #### L [id number], L100.0100 #### [facility] [address] [place], [address] BUN/CRE 24.2 RATIO High 10-20 [facility] Comment on above: Order Comment: PLEAS E FAX LAB RESULTS Performed By: #### L [id number], L100.0100 #### [facility] [address] [place], [address] Calcium [Mass/Vol] 8.9 mg/dL Normal 7.6-11.0 [facility] Comment on above: Order Comment: PLEAS E FAX LAB RESULTS Performed By: #### L [id number], L100.0100 #### [facility] [address] [place], [address] Chloride [Moles/Vol] 107 mmol/L Normal 98-108 [facility] Comment on above: Order Comment: PLEAS E FAX LAB RESULTS Performed By: #### L [id number], L100.0100 #### [facility] [address] [place], [address] CO2 [Moles/Vol] 21.5 mmol/L Normal 21.0-32.0 [facility] Comment on above: Order Comment: PLEAS E FAX LAB RESULTS Performed By: #### L [id number], L100.0100 #### [facility] [address] [place], [address] Creatinine [Mass/Vol] 0.80 mg/dL Normal 0.70-1.20 [facility] Comment on above: Order Comment: PLEAS E FAX LAB RESULTS Performed By: #### L [id number], L100.0100 #### [facility] [address] [place], [address] GAP 12 Normal 5-15 [facility] Comment on above: Order Comment: PLEAS E FAX LAB RESULTS Performed By: #### L [id number], L100.0100 #### [facility] [address] [place], [address] GFR/1.73 sq M.predicted among non-blacks MDRD (S/P/Bld) [Vol rate/Area] 88 mL/min/{1.73_m2} Normal >60 [facility] Comment on above: Order Comment: PLEAS E FAX LAB RESULTS Result Comment: mL/m in/1.73m2 CKD-EPI Creatinine Equation (2020) Performed By: #### L [id number], L100.0100 #### [facility] [address] [place], [address] Globulin (S) [Mass/Vol] 3.8 g/dL Normal 2.2-4.2 [facility] Comment on above: Order Comment: PLEAS E FAX LAB RESULTS Performed By: #### L [id number], L100.0100 #### [facility] [address] [place], [address] Glucose [Mass/Vol] 108 mg/dL High 70-99 [facility] Comment on above: Order Comment: PLEAS E FAX LAB RESULTS Performed By: #### L [id number], L100.0100 #### [facility] [address] [place], [address] Potassium [Moles/Vol] 4.1 mmol/L Normal 3.3-5.1 [facility] Comment on above: Order Comment: PLEAS E FAX LAB RESULTS Performed By: #### L [id number], L100.0100 #### [facility] [address] [place], [address] Sodium [Moles/Vol] 140 mmol/L Normal 133-145 [facility] Comment on above: Order Comment: PLEAS E FAX LAB RESULTS Performed By: #### L [id number], L100.0100 #### [facility] [address] [place], [address] T PROT 7.8 g/dL Normal 5.9-8.4 [facility] Comment on above: Order Comment: PLEAS E FAX LAB RESULTS Performed By: #### L [id number], L100.0100 #### [facility] [address] [place], [address] Urea nitrogen [Mass/Vol] 19 mg/dL Normal 4-19 [facility] Comment on above: Order Comment: PLEAS E FAX LAB RESULTS Performed By: #### L [id number], L100.0100 #### [facility] [address] [place], [place], [address] Erythrocyte distribution wid th ratioOrdered By: Charlee Humphries on 12-24-2024 Erythrocyte distribution width (RBC) [Ratio] 14.3 % 11.6-14.6 [facility] Erythrocyte distribution wid th standard deviationOrdered By: Charlee Humphries on 12-24-2024 Erythrocyte distribution width (RBC) [Ratio] 42.1 fl 35.1-43.9 [facility] Glomerular filtration rate ( GFR) estimation/1.73 sq m using serum, plasma, or whole bOrdered By: Charlee Humphries on 12-24-2024 GFR/1.73 sq M.predicted among non-blacks MDRD (S/P/Bld) [Vol rate/Area] 88 mL/min/{1.73_m2} >60 [facility] Comment on above: mL/min/1.73m2 CKD-EP I Creatinine Equation (2020) Hematocrit Auto (Bld) [Volum e fraction]Ordered By: Charlee Humphries on 12-24-2024 Hematocrit (Bld) [Volume fraction] 40.5 % 37-47 [facility] Hemoglobin measurementOrdere d By: Charlee Humphries on 12-24-2024 Hemoglobin (Bld) [Mass/Vol] 13.5 g/dL 12.0-15.0 [facility] LDL calc ser/plasOrdered By: Charlee Humphries on 12-24-2024 Cholesterol in LDL [Mass/Vol] 126 mg/dL Normal [facility] Comment on above: Suermsefqc=846-767 m g/dL & Higher Gatb=991 mg/dL or greater Order Comment: PLEAS E FAX LAB RESULTS Result Comment: Bord dejerh=613-869 mg/dL Higher Cmim=996 mg/dL or greater Performed By: #### L [id number], L100.0100 #### [facility] [address] [place], [place], [id number] Laboratory - Chemistry and C hemistry - challengeOrdered By: Charlee Humphries on 12-24-2024 AST [Catalytic activity/Vol] 21 U/L <32 [facility] Lipid Profileon 12-24-2024 CHOL:HDL 5.20 Normal [facility] Comment on above: Order Comment: PLEAS E FAX LAB RESULTS Performed By: #### L 500.4050, L100.0100 #### [facility] [address] [place], [address] Cholesterol in VLDL [Mass/Vol] 24 mg/dL Normal 5-40 [facility] Comment on above: Order Comment: PLEAS E FAX LAB RESULTS Performed By: #### L [id number], L100.0100 #### [facility] [address] [place], [address] MCV (mean corpuscular volume ) determinationOrdered By: Charlee Humphries on 12-24-2024 MCV (RBC) [Entitic vol] 80.5 fL Low 81-99 [facility] Magnesiumon 12-24-2024 Magnesium [Mass/Vol] 2.3 mg/dL High 1.5-2.2 [facility] Comment on above: Order Comment: PLEAS E FAX LAB RESULTS Performed By: #### L 500.4050, L100.0100 #### [facility] [address] [place], [address] Magnesium measurement (mass/ volume)Ordered By: Charlee Humphries on 12-24-2024 Magnesium (Unsp spec) [Mass/Vol] 2.3 mg/dL High 1.5-2.2 [facility] Mean corpuscular hemoglobin (MCH) determinationOrdered By: Charlee Humphries on 12-24-2024 MCH (RBC) [Entitic mass] 26.8 pg Low 27.0-32.0 [facility] Mean corpuscular hemoglobin concentration (MCHC) determinationOrdered By: Charlee Humphries on 12-24-2024 MCHC (RBC) [Mass/Vol] 33.3 g/dL 32-36 [facility] Mean platelet volume determi nationOrdered By: Charlee Humphries on 12-24-2024 Platelet mean volume (Bld) [Entitic vol] 9.3 fL 6.2-12.0 [facility] Microalb:Creat Ratio,Random URon 12-24-2024 Creatinine [Mass/Vol] 159.00 mg/dL Normal 28.00- 217.0 0 [facility] Comment on above: Order Comment: NAKUL E FAX LAB RESULTS Performed By: #### L 500.4050, L100.0100 #### [facility] [address] [place], [address] Microalbumin/creat ratio urO rdered By: Charlee Humphries on 12-24-2024 Urine microalbumin/creatinine ratio measurement UNABLE TO CALCULATE mg/g CRE [facility] Comment on above: Previous reported re sult: UNABLE TO CALCULATE mg/g CREEdited by: SPENCER on 12/24/24:0939 AMENDED REPORT 12/24/24 0939 MALB:CREAT previously reported as: UNABLE TO CALCULATE mg/g CRE PTHINon 12-24-2024 PTH 75 pg/mL High 11-61 [facility] Comment on above: Order Comment: NAKUL Verdin FAX LAB RESULTS Performed By: #### L 500.4050, L100.0100 #### [facility] [address] [place], [address] Platelet countOrdered By: Milton Humphries on 12-24-2024 Platelets (Bld) [#/Vol] 288 10*3/uL 150-450 [facility] Potassium measurement (mass/ volume)Ordered By: Charlee Humphries on 12-24-2024 Potassium (Unsp spec) [Mass/Vol] 4.1 mmol/L 3.3-5.1 [facility] RBC Auto (Bld) [#/Vol]Ordere d By: Charlee Humphries on 12-24-2024 RBC (Bld) [#/Vol] 5.03 10*6/uL 4.2-5.4 [facility] Random urine creatinine eliel urement (mass/volume)Ordered By: Charlee Humphries on 12-24-2024 Creatinine Unsp time (U) [Mass/Vol] 159.00 mg/dL 28.00-217.0 0 [facility] Screening total cholesterol/ high density lipoprotein (HDL) cholesterol ratioOrdered By: Charlee Humphries on 12-24-2024 Cholesterol.total/Choleste rol in HDL [Mass ratio] 5.20 {ratio} [facility] Serum creatinine measurement (mass/volume)Ordered By: Charlee Humphries on 12-24-2024 Creatinine [Mass/Vol] 0.80 mg/dL 0.70-1.20 [facility] Serum globulin measurementOr dered By: Charlee Humphries on 12-24-2024 Globulin (S) [Mass/Vol] 3.8 g/dL 2.2-4.2 [facility] Serum glucose measurement (m ass/volume)Ordered By: Charlee Humphries on 12-24-2024 Glucose [Mass/Vol] 108 mg/dL High 70-99 [facility] Serum or plasma alanine umaña otransferase (ALT) measurementOrdered By: Charlee Hupmhries on 12-24-2024 ALT [Catalytic activity/Vol] 28 U/L <35 [facility] Serum or plasma albumin eliel urement (mass/volume)Ordered By: Charlee Humphries on 12-24-2024 Albumin [Mass/Vol] 4.0 g/dL 3.5-5.0 [facility] Serum or plasma albumin/glob ulin mass ratioOrdered By: Charlee Humphries on 12-24-2024 Albumin/Globulin [Mass ratio] 1.1 {ratio} 0.9-2.4 [facility] Serum or plasma alkaline josefina sphatase measurementOrdered By: Charlee Humphries on 12-24-2024 ALP [Catalytic activity/Vol] 146 U/L High 35-104 [facility] Serum or plasma calcium eliel urement (mass/volume)Ordered By: Charlee Humphries on 12-24-2024 Calcium [Mass/Vol] 8.9 mg/dL 7.6-11.0 [facility] Serum or plasma cholesterol in HDL measurement (mass/volume)Ordered By: Charlee Humphries on 12-24-2024 Cholesterol in HDL [Mass/Vol] 36 mg/dL Low [facility] Comment on above: National Cholesterol Education Program (NCEP) guidelines:<40 mg/dL: Low HDL-cholesterol (major risk factor for CHD)>= 60 mg/dL: High HDL-cholesterol (negative risk factor for CHD)HDL-cholesterol is affected by a number of factors, e.g. smoking, exercise, hormones, sex and age. Order Comment: PLEAS E FAX LAB RESULTS Result Comment: Emily onal Cholesterol Education Program (NCEP) guidelines: <40 mg/dL: Low HDL-cholesterol (major risk factor for CHD) >= 60 mg/dL: High HDL-cholesterol (negative risk factor for CHD) HDL-cholesterol is affected by a number of factors, e.g. smoking, exercise, hormones, sex and age. Performed By: #### L [id number], L100.0100 #### [facility] [address] [place], [place], [id number] Serum or plasma cholesterol measurement (mass/volume)Ordered By: Charlee Humphries on 12-24-2024 Cholesterol [Mass/Vol] 186 mg/dL Normal <=200 [facility] Comment on above: Cholesterol level, D esirable <200 mg/dLBorderline high cholesterol 200-239 mg/dLHigh cholesterol >=240 mg/dLRecommendations of the NCEP Adult Treatment Panel for the following risk-cutoff thresholds for the [place] population. Order Comment: PLEAS E FAX LAB RESULTS Result Comment: Chol esterol level, Desirable <200 mg/dL Borderline high cholesterol 200-239 mg/dL High cholesterol >=240 mg/dL Recommendations of the NCEP Adult Treatment Panel for the following risk-cutoff thresholds for the [place] population. Performed By: #### L 500.4050, L100.0100 #### [facility] [address] [place], [place], [id number] Serum or plasma urea nitroge n measurement (mass/volume)Ordered By: Charlee Humphries on 12-24-2024 Urea nitrogen [Mass/Vol] 19 mg/dL 4-19 [facility] Sodium levelOrdered By: Sohail Humphries on 12-24-2024 Sodium [Moles/Vol] 140 mmol/L 133-145 [facility] T4 Free Directon 12-24-2024 T4 FREE DIRECT 0.90 ng/dL Normal 0.76-1.46 [facility] Comment on above: Order Comment: PLEAS E FAX LAB RESULTSN Performed By: #### L 500.4050, L100.0100 #### [facility] [address] [place], [place], [address] T4 freeOrdered By: Charlee lacy on 12-24-2024 Free T4 [Mass/Vol] 0.90 ng/dL 0.76-1.46 [facility] TSH DL <= 0.005 mIU/L QnOrde red By: Charlee Humphries on 12-24-2024 TSH Qn 1.430 uIU/mL 0.300-4.200 [facility] Thyroid Stim Hormone (TSH)on 12-24-2024 TSH 1.430 uIU/mL Normal 0.300-4.200 [facility] Comment on above: Order Comment: NAKUL E FAX LAB RESULTS Performed By: #### L 500.4050, L100.0100 #### [facility] [address] [place], [place], [address] Total proteinOrdered By: Caden Humphries on 12-24-2024 Protein [Mass/Vol] 7.8 g/dL 5.9-8.4 [facility] Triglycerides measurementOrd ered By: Charlee Humphries on 12-24-2024 Triglyceride [Mass/Vol] 120 mg/dL Normal [facility] Comment on above: The drugs N-Acetylcy steine and Metamizole may falsely depress this assay. Normal range: <150 mg/dLBorderline High: 150-199 mg/dLHigh: 200-499 mg/dLVery High: >500 mg/dL Order Comment: PLEAS E FAX LAB RESULTS Result Comment: The drugs N-Acetylcysteine and Metamizole may falsely depress this assay. Normal range: <150 mg/dL Borderline High: 150-199 mg/dL High: 200-499 mg/dL Very High: >500 mg/dL Performed By: #### L 500.4050, L100.0100 #### [facility] [address] [place], [place], [address] Urine albumin measurement [facility] detection limit of 20 mg/L or less (mass/volume)Ordered By: Charlee Humphries on 12-24-2024 Albumin DL <= 20 mg/L (U) [Mass/Vol] < 12.0 mg/L NO RANGE EST. [facility] Vitamin D,25 Hydroxyon 12-24 Vitamin D 25-OH 38.6 ng/mL Normal 30-100 [facility] Comment on above: Order Comment: PLEAS E FAX LAB RESULTS Result Comment: Mary min D Status Deficiency: <20 ng/mL (50nmol/L) Insufficiency: 20-30 ng/mL (50-75 nmol/L) Sufficiency: 30-100 ng/mL (75-250 nmol/L) Toxicity: >100 ng/mL (>250 nmol/L) Performed By: #### L 500.4050, L100.0100 #### [facility] [address] [place], [address] White blood cell (WBC) count Ordered By: Charlee Humphries on 12-24-2024 WBC (Bld) [#/Vol] 6.3 10*3/uL 4.4-11.0 [facility] MA MAMMOGRAM SCREENING BILAT ERAL W/TOMOon 09-28-2024 MA MAMMOGRAM SCREENING BILATERAL W/AMINTA ORIGINAL FROM: JUAN [address] [address] PROCEDURE FOR: ILNG DIAS [address] [place] [address] Home: PID#: [id number] Exam#: [id number] : 1970 Age: 54 TO: CHARLEE HUMPHRIES 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 BIRADS: MAMMOGRAM BI-RADS: 1: Negative RECALL: 1 year screening RECALL TYPE: mammo LETTER SENT: Normal BI-RADS 1 and 2 Interpreted by: Lakeisha Hanson Preliminary Report By: Lakeisha Hanson Electronically signed By Lakeisha Hanson Dictated Date: 09/28/2024 8:57:21 AM Prelim Date: 09/28/2024 8:59:36 AM Sign Date: 09/28/2024 8:59:36 AM Ordering Provider: CHARLEE HUMPHRIES Bulb Weeder: NARDA JARQUIN RT (R)(M) letter sent: Normal BI-RADS 1 and 2 Mammogram BI-RADS: 1 Negative Normal [facility] Kidney and Bladderon 025 Kidney and Bladder [facility] Imaging Services [address] [place] [id number] Kidney and Bladder MR#: [id number] Acct: [id number] Name: LING DIAS Rep #: [id number] : 1970 F 54 From: Quentin Perdue MD PCP: NOAH Lim Status: REG CLI Study: Kidney and Bladder Date of Exam: 09/22/24 Exam# [id number] Ordering Dr: Anne Ridley MD PROCEDURE: KIDNEY [...] is not seen during imaging. Reading Location: [facility] CC: NOAH Humphries; Dr. Anne Ridley MD Main Line Assembler: Signed Normal [facility] Bacteria Ur Culton 5 Bacteria identified Cx Nom (U) ORGANISM ID: [...] , Intermediate >32 , Resistant >64 Abnormal [facility] Comment on above: Performed By: #### 6 30-4 ####[facility] [id number] [address] [place] CNOVon 08-17-2024 CNOV Office Visit ([facility]WSTR ) LING [id number]) 1970 F Date Time Provider Department 08/17/24 7:15 AM MILLICENT SOL [facility] During your visit today, we recorded the following information about you: Temperature Pulse Respiration Blood pressure 97.8 degrees 90/minute 18/minute 132/80 Weight 120.5 kg Millicent Sol PA-C 08/17/2024 7:39 AM Signed This note was created using Reflexis Systemsriter. Subjective Ling Dias is a 54 year [...] Diagnosis:Acute UTI [N39.0] Order(s):UA DIP, URINE (POC) [8568968] Order #: [id number]. #:[id number] BACTERIAL CULTURE, URINE [SQURCUL] Order #: [id number]. #:[id number] cephALEXin (KEFLEX) 500 mg capsuleTake 1 capsule [...] - busPI (more content not included)... Normal [facility] UA DIP, URINE (POC)on 2024 BILIRUBIN UA (POCT) Small Abnormal Negative [facility] CLARITY UA (POCT) Clear [facility] COLOR UA (POCT) Red [facility] GLUCOSE UA (POCT) Negative Negative mg/dL [facility] Hemoglobin Ql (U) Large Abnormal Negative [facility] Interpretation and review of laboratory results Abnormal [facility] KETONE UA (POCT) Negative Negative mg/dL [facility] LEUKOCYTES UA (POCT) Large Abnormal Negative [facility] NITRITE UA (POCT) Positive Abnormal Negative [facility] PH UA (POCT) 6.0 4.5 - 8.0 [facility] Protein Ql (U) >=300 Abnormal Negative mg/dL [facility] SPECIFIC GRAVITY UA (POCT) 1.025 1 .005 - 1.030 [facility] UROBILINOGEN UA (POCT) 0.2 Kriss l E.U./dL [facility] Location:[facility], [address], [place], [address] [facility] POINT OF CARE [facility] Microalb:Creat Ratio,Random URon 06-27-2024 Creatinine [Mass/Vol] 252.00 mg/dL Normal NO RAN GE EST. [facility] Comment on above: Performed By: #### L 500.4050, L100.0100 #### [facility] [address] [place], [address] MALB:CRE 6.1 mg/g CRE Normal <30 mg/g CRE [facility] Comment on above: Performed By: #### L 500.4050, L100.0100 #### [facility] [address] [place], [address] MICROALBUMIN,UR 15.3 mg/L Normal NO RANGE EST. [facility] Comment on above: Performed By: #### L 500.4050, L100.0100 #### [facility] [address] [place], [address] Random urine microalbumin me asurementOrdered By: Charlee Humphries on 06-27-2024 Urine Random Microalbumin 15.3 mg/L NO RANGE EST. [facility] Urine albumin/creatinine rat io for detection of microalbuminuriaOrdered By: Charlee Humphries on 06-27-2024 Urine Microalbumin/Creatinine Ratio 6.1 mg/g CRE <30 [facility] Urine creatinine measurement (mass/volume)Ordered By: Charlee Humphries on 06-27-2024 Creatinine (U) [Mass/Vol] 252.00 mg/dL NO RANGE EST. [facility] Vitamin D,25 Hydroxyon 06-27 Vitamin D 25-OH 45.0 ng/mL Normal [facility] Comment on above: Result Comment: Mary min D 25(OH) Status Range Deficiency <20 ng/mL (50nmol/L) Insufficiency 20 - 30 ng/mL (50 - 75 nmol/L) Sufficiency 30 - 100 ng/mL (75 - 250 nmol/L) Toxicity >100 ng/mL (>250 nmol/L) Performed By: #### L 500.4050, L100.0100 #### [facility] [address] [place], [address] 15-EL-Dzpygav DOrdered By: Troy Humphries on 06-25-2024 Vitamin D 25-Hydroxy 45.0 ng/mL [facility] Comment on above: Vitamin D 25(OH) Sta tus Range Deficiency <20 ng/mL (50nmol/L) Insufficiency 20 - 30 ng/mL (50 - 75 nmol/L) Sufficiency 30 - 100 ng/mL (75 - 250 nmol/L) Toxicity >100 ng/mL (>250 nmol/L) Albumin to globulin ratioOrd ered By: Charlee Humphries on 06-25-2024 Albumin/Globulin [Mass ratio] 0.8 {ratio} Low 0.9-2.4 [facility] Bilirubin, totalOrdered By: Charlee Humphries on 06-25-2024 Bilirubin [Mass/Vol] 0.60 mg/dL 0.20-1.00 [facility] Comment on above: For patients on eltr ombopag therapy, use of Dimension [place] TBIL is not recommended. Blood urea nitrogen (BUN)/cr eatinine ratioOrdered By: Charlee Humphries on 06-25-2024 Urea nitrogen/Creatinine [Mass ratio] 17.8 mg/mg 10- [facility] CBC-Complete Blood Cnt No Di ffon 06-25-2024 Erythrocyte distribution width (RBC) [Ratio] 13.7 % Normal 11.6-14.6 [facility] Comment on above: Performed By: #### L 501.9520, L100.0500, L506.1000, L501.0900, L500.4100, L500.4050, L506.0400 ####[facility] [address] [facility] [place], [place], [phone] Hematocrit (Bld) [Volume fraction] 42.5 % Normal 37-47 [facility] Comment on above: Performed By: #### L 501.9520, L100.0500, L506.1000, L501.0900, L500.4100, L500.4050, L506.0400 ####[facility] [address] [facility] [place], [place], [phone] Hemoglobin (Bld) [Mass/Vol] 13.8 g/dL Normal 12.0-15.0 [facility] Comment on above: Performed By: #### L 501.9520, L100.0500, L506.1000, L501.0900, L500.4100, L500.4050, L506.0400 ####[facility] [address] [place], [address] MCH (RBC) [Entitic mass] 27.0 pg Normal 27.0-32.0 [facility] Comment on above: Performed By: #### L 501.9520, L100.0500, L506.1000, L501.0900, L500.4100, L500.4050, L506.0400 ####[facility] [address] [place], [address] MCHC (RBC) [Mass/Vol] 32.5 g/dL Normal 32-36 [facility] Comment on above: Performed By: #### L 501.9520, L100.0500, L506.1000, L501.0900, L500.4100, L500.4050, L506.0400 ####[facility] [address] [place], [address] MCV (RBC) [Entitic vol] 83.0 fL Normal 81-99 [facility] Comment on above: Performed By: #### L 501.9520, L100.0500, L506.1000, L501.0900, L500.4100, L500.4050, L506.0400 ####[facility] [address] [place], [address] Platelet mean volume (Bld) [Entitic vol] 9.4 fL Normal 6.2-12.0 [facility] Comment on above: Performed By: #### L 501.9520, L100.0500, L506.1000, L501.0900, L500.4100, L500.4050, L506.0400 ####[facility] [address] [place], [address] Platelets (Bld) [#/Vol] 312 10*3/uL Normal 150-450 [facility] Comment on above: Performed By: #### L 501.9520, L100.0500, L506.1000, L501.0900, L500.4100, L500.4050, L506.0400 ####[facility] [address] [place], [address] RBC (Bld) [#/Vol] 5.12 10*6/uL Normal 4.2-5.4 [facility] Comment on above: Performed By: #### L 501.9520, L100.0500, L506.1000, L501.0900, L500.4100, L500.4050, L506.0400 ####[facility] [address] [place], [address] RDW SD 41.3 fl Normal 35.1-43.9 [facility] Comment on above: Performed By: #### L 501.9520, L100.0500, L506.1000, L501.0900, L500.4100, L500.4050, L506.0400 ####[facility] [address] [place], [address] WBC (Bld) [#/Vol] 7.5 10*3/uL Normal 4.4-11.0 [facility] Comment on above: Performed By: #### L 501.9520, L100.0500, L506.1000, L501.0900, L500.4100, L500.4050, L506.0400 ####[facility] [address] [place], [address] Carbon dioxide measurementOr dered By: Charlee Humphries on 06-25-2024 CO2 [Moles/Vol] 27.0 mmol/L 21.0-32.0 [facility] Chloride measurementOrdered By: Charlee Humphries on 06-25-2024 Chloride [Moles/Vol] 110 mmol/L High 98-107 [facility] Comprehensive Metabolic Prof ilon 06-25-2024 Albumin [Mass/Vol] 3.7 g/dL Normal 3.2-5.0 [facility] Comment on above: Performed By: #### L 501.9520, L100.0500, L506.1000, L501.0900, L500.4100, L500.4050, L506.0400 ####[facility] [address] [place], [address] Albumin/Globulin [Mass ratio] 0.8 {ratio} Low 0.9-2.4 [facility] Comment on above: Performed By: #### L 501.9520, L100.0500, L506.1000, L501.0900, L500.4100, L500.4050, L506.0400 ####[facility] [address] [place], [address] ALK P 214 U/L High 45-117 [facility] Comment on above: Performed By: #### L 501.9520, L100.0500, L506.1000, L501.0900, L500.4100, L500.4050, L506.0400 ####[facility] [address] [place], [address] ALT [Catalytic activity/Vol] 49 U/L Normal 13-56 [facility] Comment on above: Performed By: #### L 501.9520, L100.0500, L506.1000, L501.0900, L500.4100, L500.4050, L506.0400 ####[facility] [address] [place], [address] AST [Catalytic activity/Vol] 19 U/L Normal 15-37 [facility] Comment on above: Performed By: #### L 501.9520, L100.0500, L506.1000, L501.0900, L500.4100, L500.4050, L506.0400 ####[facility] [address] [place], [address] Bilirubin [Mass/Vol] 0.60 mg/dL Normal 0.20-1.00 [facility] Comment on above: Result Comment: For patients on eltrombopag therapy, use of Dimension [place] TBIL is not recommended. Performed By: #### L 501.9520, L100.0500, L506.1000, L501.0900, L500.4100, L500.4050, L506.0400 ####[facility] [address] [place], [address] BUN/CRE 17.8 RATIO Normal 10-20 [facility] Comment on above: Performed By: #### L 501.9520, L100.0500, L506.1000, L501.0900, L500.4100, L500.4050, L506.0400 ####[facility] [address] [place], [address] CA,Total 9.3 mg/dL Normal 8.5-10.1 [facility] Comment on above: Performed By: #### L 501.9520, L100.0500, L506.1000, L501.0900, L500.4100, L500.4050, L506.0400 ####[facility] [address] [place], [address] Chloride [Moles/Vol] 110 mmol/L High 98-107 [facility] Comment on above: Performed By: #### L 501.9520, L100.0500, L506.1000, L501.0900, L500.4100, L500.4050, L506.0400 ####[facility] [address] [place], [address] CO2 [Moles/Vol] 27.0 mmol/L Normal 21.0-32.0 [facility] Comment on above: Performed By: #### L 501.9520, L100.0500, L506.1000, L501.0900, L500.4100, L500.4050, L506.0400 ####[facility] [address] [place], [address] Creatinine [Mass/Vol] 1.07 mg/dL High 0.55-1.02 [facility] Comment on above: Result Comment: The validity of the calculated GFR GFRAA in patients over 70 years has not been determined. Clinical correlation is essential. Performed By: #### L 501.9520, L100.0500, L506.1000, L501.0900, L500.4100, L500.4050, L506.0400 ####[facility] [address] [place], [address] EST GFR - AA 69 mL/min Normal >60 [facility] Comment on above: Result Comment: Afri can [place] GFR Calc Performed By: #### L 501.9520, L100.0500, L506.1000, L501.0900, L500.4100, L500.4050, L506.0400 ####[facility] [address] [place], [address] GAP 5 Normal 5-15 [facility] Comment on above: Performed By: #### L 501.9520, L100.0500, L506.1000, L501.0900, L500.4100, L500.4050, L506.0400 ####[facility] [address] [place], [address] GFR/1.73 sq M.predicted among non-blacks MDRD (S/P/Bld) [Vol rate/Area] 57 mL/min/{1.73_m2} Low >60 [facility] Comment on above: Result Comment: Non- GFR Calc Performed By: #### L 501.9520, L100.0500, L506.1000, L501.0900, L500.4100, L500.4050, L506.0400 ####[facility] [address] [place], [address] Globulin (S) [Mass/Vol] 4.4 g/dL High 2.2-4.2 [facility] Comment on above: Performed By: #### L 501.9520, L100.0500, L506.1000, L501.0900, L500.4100, L500.4050, L506.0400 ####[facility] [address] [place], [address] Glucose [Mass/Vol] 99 mg/dL Normal 74-106 [facility] Comment on above: Performed By: #### L 501.9520, L100.0500, L506.1000, L501.0900, L500.4100, L500.4050, L506.0400 ####[facility] [address] [place], [address] Potassium [Moles/Vol] 3.6 mmol/L Normal 3.5-5.1 [facility] Comment on above: Performed By: #### L 501.9520, L100.0500, L506.1000, L501.0900, L500.4100, L500.4050, L506.0400 ####[facility] [address] [place], [address] Sodium [Moles/Vol] 142 mmol/L Normal 136-145 [facility] Comment on above: Performed By: #### L 501.9520, L100.0500, L506.1000, L501.0900, L500.4100, L500.4050, L506.0400 ####[facility] [address] [place], [address] T PROT 8.1 g/dL Normal 6.4-8.2 [facility] Comment on above: Performed By: #### L 501.9520, L100.0500, L506.1000, L501.0900, L500.4100, L500.4050, L506.0400 ####[facility] [address] [place], [address] Urea nitrogen [Mass/Vol] 19 mg/dL High 7-18 [facility] Comment on above: Performed By: #### L 501.9520, L100.0500, L506.1000, L501.0900, L500.4100, L500.4050, L506.0400 ####[facility] [address] [place], [address] Direct serum free thyroxine (FT4) measurementOrdered By: Charlee Humphries on 06-25-2024 Free T4 [Mass/Vol] 1.09 ng/dL 0.76-1.46 [facility] Erythrocyte distribution wid th ratioOrdered By: Charlee Humphries on 06-25-2024 Erythrocyte distribution width (RBC) [Ratio] 13.7 % 11.6-14.6 [facility] Erythrocyte distribution wid th standard deviationOrdered By: Charlee Humphries on 06-25-2024 Erythrocyte distribution width (RBC) [Entitic vol] 41.3 fL 35.1-43.9 [facility] Estimated glomerular filtrat ion rate (GFR) AmericanOrdered By: Charlee Humphries on 06-25-2024 Estimated GFR (MDRD) Amer 69 mL/min >60 [facility] Comment on above: GFR Calc Glomerular filtration rate ( GFR) estimationOrdered By: Charlee Humphries on 06-25-2024 Estimated GFR (MDRD) Non-Af Amer 57 mL/min Low >60 [facility] Comment on above: Non- GFR Calc Glucose measurementOrdered B y: Charlee Humphries on 06-25-2024 Glucose [Mass/Vol] 99 mg/dL 74-106 [facility] Hematocrit Auto (Bld) [Volum e fraction]Ordered By: Charlee Humphries on 06-25-2024 Hematocrit (Bld) [Volume fraction] 42.5 % 37-47 [facility] Hemoglobin measurementOrdere d By: Charlee Humphries on 06-25-2024 Hemoglobin (Bld) [Mass/Vol] 13.8 g/dL 12.0-15.0 [facility] High density lipoprotein (HD L) measurementOrdered By: Charlee Humphries on 06-25-2024 Cholesterol in HDL [Mass/Vol] 41 mg/dL >40 [facility] Comment on above: The drugs N-Acetylcy steine and Metamizole may falsely depress this assay. Reference Range HDL <40 mg/dL Low HDL Cholesterol HDL >or= 60 mg/dL High HDL Cholesterol Laboratory - Chemistry and C hemistry - challengeOrdered By: Charlee Humphries on 06-25-2024 AST [Catalytic activity/Vol] 19 U/L 15-37 [facility] Lipid Profileon 06-25-2024 Cholesterol [Mass/Vol] 193 mg/dL Normal 200 [facility] Comment on above: Result Comment: <200 mg/dL Desirable 200-240 mg/dL Borderline >240 mg/dL High Risk Performed By: #### L 500.4050, L100.0100 #### [facility] [address] [place], [address] Cholesterol in HDL [Mass/Vol] 41 mg/dL Normal [facility] Comment on above: Result Comment: The drugs N-Acetylcysteine and Metamizole may falsely depress this assay. Reference Range HDL <40 mg/dL Low HDL Cholesterol HDL >or= 60 mg/dL High HDL Cholesterol Performed By: #### L 500.4050, L100.0100 #### [facility] [address] [place], [address] Cholesterol in LDL [Mass/Vol] 136 mg/dL High 0-130 [facility] Comment on above: Performed By: #### L 500.4050, L100.0100 #### [facility] [address] [place], [address] Cholesterol in VLDL [Mass/Vol] 16 mg/dL Normal 5-40 [facility] Comment on above: Performed By: #### L 500.4050, L100.0100 #### [facility] [address] [place], [address] Triglyceride [Mass/Vol] 82 mg/dL Normal [facility] Comment on above: Result Comment: The drugs N-Acetylcysteine and Metamizole may falsely depress this assay. Serum Triglycerides Reference Interval Normal <150 mg/dL Borderline high 150 - 199 mg/dL High 200 - 499 mg/dL Very High > or = 500 mg/dL Performed By: #### L 500.4050, L100.0100 #### [facility] [address] [place], [place], [address] Low density lipoprotein (LDL ) cholesterol measurementOrdered By: Charlee Humphries on 06-25-2024 Cholesterol in LDL [Mass/Vol] 136 mg/dL High 0-130 [facility] MCV (mean corpuscular volume ) determinationOrdered By: Charlee Humphries on 06-25-2024 MCV (RBC) [Entitic vol] 83.0 fL 81-99 [facility] Mean corpuscular hemoglobin (MCH) determinationOrdered By: Charlee Humphries on 06-25-2024 MCH (RBC) [Entitic mass] 27.0 pg 27.0-32.0 [facility] Mean corpuscular hemoglobin concentration (MCHC) determinationOrdered By: Charlee Humphries on 06-25-2024 MCHC (RBC) [Mass/Vol] 32.5 g/dL 32-36 [facility] Mean platelet volume determi nationOrdered By: Charlee Humphries on 06-25-2024 Platelet mean volume (Bld) [Entitic vol] 9.4 fL 6.2-12.0 [facility] Platelet countOrdered By: Milton Humphries on 06-25-2024 Platelets (Bld) [#/Vol] 312 10*3/uL 150-450 [facility] Potassium measurementOrdered By: Charlee Humphries on 06-25-2024 Potassium [Moles/Vol] 3.6 mmol/L 3.5-5.1 [facility] Protein+Creatinine Ratio,Uri neon 06-25-2024 PROT:CRE RATIO Normal 0-200 [facility] Comment on above: Result Comment: UTO Performed By: #### L 500.4050, L100.0100 #### [facility] [address] [place], [address] PROTEIN,UR.RAN. Normal <11.9 [facility] Comment on above: Result Comment: UTO Performed By: #### L 500.4050, L100.0100 #### [facility] [address] [place], [address] UR CREAT Normal NO RANGE EST. [facility] Comment on above: Result Comment: UTO Performed By: #### L 500.4050, L100.0100 #### [facility] [address] [place], [address] RBC Auto (Bld) [#/Vol]Ordere d By: Charlee Humphries on 06-25-2024 RBC (Bld) [#/Vol] 5.12 10*6/uL 4.2-5.4 [facility] Serum anion gap measurementO rdered By: Charlee Humphries on 06-25-2024 Anion gap [Moles/Vol] 5 mmol/L 5-15 [facility] Serum globulin measurementOr dered By: Charlee Humphries on 06-25-2024 Globulin (S) [Mass/Vol] 4.4 g/dL High 2.2-4.2 [facility] Serum or plasma alanine umaña otransferase (ALT) measurementOrdered By: Charlee Humphries on 06-25-2024 ALT [Catalytic activity/Vol] 49 U/L 13-56 [facility] Serum or plasma albumin eliel urement (mass/volume)Ordered By: Charlee Humphries on 06-25-2024 Albumin [Mass/Vol] 3.7 g/dL 3.2-5.0 [facility] Serum or plasma alkaline josefina sphatase measurementOrdered By: Charlee Humphries on 06-25-2024 ALP [Catalytic activity/Vol] 214 U/L High 45-117 [facility] Serum or plasma calcium eliel urement (mass/volume)Ordered By: Charlee Humphries on 06-25-2024 Calcium [Mass/Vol] 9.3 mg/dL 8.5-10.1 [facility] Serum or plasma cholesterol measurement (mass/volume)Ordered By: Charlee Humphries on 06-25-2024 Cholesterol [Mass/Vol] 193 mg/dL <200 [facility] Comment on above: <200 mg/dL Desirable 200-240 mg/dL Borderline >240 mg/dL High Risk Serum or plasma creatinine m easurement (mass/volume)Ordered By: Charlee Humphries on 06-25-2024 Creatinine [Mass/Vol] 1.07 mg/dL High 0.55-1.02 [facility] Comment on above: The validity of the calculated GFR & GFRAA in patients over 70 years has not been determined. Clinical correlation is essential. Serum or plasma urea nitroge n measurement (mass/volume)Ordered By: Charlee Humphries on 06-25-2024 Urea nitrogen [Mass/Vol] 19 mg/dL High 7-18 [facility] Sodium levelOrdered By: Sohail Humphries on 06-25-2024 Sodium [Moles/Vol] 142 mmol/L 136-145 [facility] T4 Free Directon 06-25-2024 T4 FREE DIRECT 1.09 ng/dL Normal 0.76-1.46 [facility] Comment on above: Performed By: #### L 500.4050, L100.0100 #### [facility] [address], [place], [id number] TSH QnOrdered By: Charlee lindsey on 06-25-2024 Thyroid Stimulating Hormone (TSH) 0.747 uIU/mL 0.358-3.740 [facility] Thyroid Stim Hormone (TSH)on 06-25-2024 TSH 0.747 uIU/mL Normal 0.358-3.740 [facility] Comment on above: Performed By: #### L 500.4050, L100.0100 #### [facility] [address], [place], [id number] Total proteinOrdered By: Caden Humphries on 06-25-2024 Protein [Mass/Vol] 8.1 g/dL 6.4-8.2 [facility] Triglycerides measurementOrd ered By: Charlee Humphries on 06-25-2024 Triglyceride [Mass/Vol] 82 mg/dL <199 [facility] Comment on above: The drugs N-Acetylcy steine and Metamizole may falsely depress this assay.Serum Triglycerides Reference Interval Normal <150 mg/dL Borderline high 150 - 199 mg/dL High 200 - 499 mg/dL Very High > or = 500 mg/dL Very low density lipoprotein (VLDL) cholesterol measurementOrdered By: Charlee Humphries on 06-25-2024 VLDL Cholesterol 16 mg/dL 5-40 [facility] White blood cell (WBC) count Ordered By: Charlee Yandel on 06-25-2024 WBC (Bld) [#/Vol] 7.5 10*3/uL 4.4-11.0 [facility] ANES POSTPROC EVALon 024 ANES POSTPROC EVAL HNO ID: [id number] Author: GHANSHYAM DEY MD Service: Anesthesiology Author Type: Anesthesiologist Type: Anesthesia Postprocedure Evaluation Filed: 06/24/2024 12:52 Note Text: POST ANESTHESIA EVALUATION NOTE : 1970 Procedure Summary Date: 06/24/24 Room / Location: [facility] Endoscopy Anesthesia Start: 1209 Anesthesia Stop: 1243 Procedure: COLONOSCOPY SCREENING Diagnosis: Screen for colon cancer (Screening for colorectal malignant neoplasm) Scheduled Providers: Fredo Garcia DO; Bayron Curry APRN.ENERGY SYSTEMS ENGINEER; Ghanshyam Dey MD Responsible Provider: Ghanshyam Dey [...] June 24, 2024 TIME: 12:51 PM CSN: [id number] Normal [facility] ANES PRE-OPon 06-24-2024 ANES PRE-OP HNO ID: [id number] Author: GHANSHYAM DEY MD Service: Anesthesiology Author Type: Anesthesiologist Type: Anesthesia Preprocedure Evaluation Filed: 06/24/2024 10:39 Note Text: ANESTHESIOLOGY DAY OF SURGERY NOTE : 1970 Procedure Information Date/Time: 06/24/24 1245 Scheduled providers: Fredo Garcia DO; Bayron Curry APRN.ENERGY SYSTEMS ENGINEER; Ghanshyam Dey MD Procedure: COLONOSCOPY SCREENING Location: [facility] Endoscopy Estimated body mass index is 37.71 [...] and consent discussed: yes. Patient / Responsible Alliance Party agrees to proceed: yes Patient / Surrogate [...] June 24, 2024 TIME: 10:39 AM CSN: [id number] Normal [facility] Colonoscopyon 06-24-2024 Colonoscopy [facility] Gastrointestinal Endoscopy Patient Name: Ling Dias Procedure Date: 06/24/2024 11:58 AM Date of : 1970 Admit Type: Outpatient Age: 54 Room: [facility] Gender: Female Note Status: Finalized Attending MD: Fredo Garcia , , [id number] Procedure: Colonoscopy Indications: Screening for colorectal malignant [...] physician, the nurse, the anesthesiologist and the remote sensing research scientist in the pre-procedure area in the endoscopy [...] 2 weeks. Procedure Code(s): --- Professional --- 64485, Colonoscopy, flexible; diagnostic, including collection of specimen(s) by brushing or washing, when performed (separate procedure) Diagnosis Code(s): --- Professional --- Z12.11, Encounter for screening for malignant neoplasm of colon K64.0, First degree hemorrhoids CPT copyright 2020 [employer]. All rights reserved. The codes documented in this report are preliminary and upon energy specialist review may be revised to meet current compliance requirements. Attending Participation: I personally performed the entire procedure. Scope In: 12:17:55 PM Scope Out: 12:40:00 PM DO Fredo DUMONT, 06/24/2024 12:45:12 PM This report has been signed e (more content not included)... Normal [facility] Colonoscopy Study observatio non 06-24-2024 [facility] Gastrointestinal Endoscopy Patient Name: Ling Dias Procedure Date: 06/24/2024 11:58 AM Date of : 1970 Admit Type: Outpatient Age: 54 Room: [facility] Gender: Female Note Status: Finalized Attending MD: Fredo Garcia , , [id number] Procedure: Colonoscopy Indications: Screening for colorectal malignant [...] physician, the nurse, the anesthesiologist and the remote sensing research scientist in the pre-procedure area in the endoscopy [...] specimens collec (more content not included)... PROVATION [facility] Radiology Study observation (narrative) [facility] HISTORY PHYSICALon HISTORY PHYSICAL HNO ID: [id number] Author: FREDO GARCIA DO Service: General Surgery Author Type: [...] DATE: June 24, 2024 TIME: 12:14 PM [facility] Absolute neutrophil countOrd ered By: Ghanshyam Puente on 06-11-2024 Neutrophils (Bld) [#/Vol] 2.7 10*3/uL 2.0-7.7 [facility] Albumin to globulin ratioOrd ered By: Ghanshyam Puente on 06-11-2024 Albumin/Globulin [Mass ratio] 0.8 {ratio} Low 0.9-2.4 [facility] Basophil percentageOrdered B y: Ghanshyam Puente on 06-11-2024 Basophils/100 WBC (Bld) 0.7 % 0-1 [facility] Bilirubin, totalOrdered By: Ghanshyam Puente on 06-11-2024 Bilirubin [Mass/Vol] 1.20 mg/dL High 0.20-1.00 [facility] Comment on above: For patients on eltr ombopag therapy, use of Dimension [place] TBIL is not recommended. Blood urea nitrogen (BUN)/cr eatinine ratioOrdered By: Ghanshyam Puente on 06-11-2024 Urea nitrogen/Creatinine [Mass ratio] 13.3 mg/mg 10-20 [facility] CBC W/Diff, Automatedon 05-15 Absolute Lymph 1.31 X10 3/uL Normal 0.83-4.51 [facility] Comment on above: Performed By: #### L 500.4050, L100.0100 #### [facility] [address] [place], [address] Absolute Neut 2.7 X10 3/uL Normal 2.0-7.7 [facility] Comment on above: Performed By: #### L 500.4050, L100.0100 #### [facility] [address] [place], [address] Basophils/100 WBC (Bld) 0.7 % Normal 0-1 [facility] Comment on above: Performed By: #### L 500.4050, L100.0100 #### [facility] [address] [place], [address] Eosinophils/100 WBC (Bld) 0.0 % Normal 0-5 [facility] Comment on above: Performed By: #### L 500.4050, L100.0100 #### [facility] [address] [place], [address] Erythrocyte distribution width (RBC) [Ratio] 13.4 % Normal 11.6-14.6 [facility] Comment on above: Performed By: #### L 500.4050, L100.0100 #### [facility] [address] [place], [address] Hematocrit (Bld) [Volume fraction] 38.4 % Normal 37-47 [facility] Comment on above: Performed By: #### L 500.4050, L100.0100 #### [facility] [address] [place], [address] Hemoglobin (Bld) [Mass/Vol] 12.7 g/dL Normal 12.0-15.0 [facility] Comment on above: Performed By: #### L 500.4050, L100.0100 #### [facility] [address] [place], [address] IG% 0.500 Normal 0.0-0.9 [facility] Comment on above: Result Comment: IG% - Immature Granulocytes (promyelocytes, myelocytes and metamyelocytes) > 1% indicates that a LEFT SHIFT is Present. Performed By: #### L 500.4050, L100.0100 #### [facility] [address] [place], [address] Lymphocytes/100 WBC (Bld) 30.6 % Normal 19-41 [facility] Comment on above: Performed By: #### L 500.4050, L100.0100 #### [facility] [address] [place], [address] MCH (RBC) [Entitic mass] 27.0 pg Normal 27.0-32.0 [facility] Comment on above: Performed By: #### L 500.4050, L100.0100 #### [facility] [address] [place], [address] MCHC (RBC) [Mass/Vol] 33.1 g/dL Normal 32-36 [facility] Comment on above: Performed By: #### L 500.4050, L100.0100 #### [facility] [address] [place], [address] MCV (RBC) [Entitic vol] 81.7 fL Normal 81-99 [facility] Comment on above: Performed By: #### L 500.4050, L100.0100 #### [facility] [address] [place], [address] Monocytes/100 WBC (Bld) 6.1 % Normal 0-10 [facility] Comment on above: Performed By: #### L 500.4050, L100.0100 #### [facility] [address] [place], [address] Neutrophils/100 WBC (Bld) 62.1 % Normal 47-70 [facility] Comment on above: Performed By: #### L 500.4050, L100.0100 #### [facility] [address] [place], [address] Nucleated RBC (Bld) [#/Vol] 0 10*3/uL Normal 0-5 [facility] Comment on above: Performed By: #### L 500.4050, L100.0100 #### [facility] [address] [place], [address] Platelet mean volume (Bld) [Entitic vol] 9.6 fL Normal 6.2-12.0 [facility] Comment on above: Performed By: #### L 500.4050, L100.0100 #### [facility] [address] [place], [address] Platelets (Bld) [#/Vol] 213 10*3/uL Normal 150-450 [facility] Comment on above: Performed By: #### L 500.4050, L100.0100 #### [facility] [address] [place], [address] RBC (Bld) [#/Vol] 4.70 10*6/uL Normal 4.2-5.4 [facility] Comment on above: Performed By: #### L 500.4050, L100.0100 #### [facility] [address] [place], [address] RDW SD 39.9 fl Normal 35.1-43.9 [facility] Comment on above: Performed By: #### L 500.4050, L100.0100 #### [facility] [address] [place], [address] WBC (Bld) [#/Vol] 4.3 10*3/uL Low 4.4-11.0 [facility] Comment on above: Performed By: #### L 500.4050, L100.0100 #### [facility] [address] [place], [address] Carbon dioxide measurementOr dered By: Ghanshyam Puente on 06-11-2024 CO2 [Moles/Vol] 25.0 mmol/L 21.0-32.0 [facility] Chloride measurementOrdered By: Ghanshyam Puente on 06-11-2024 Chloride [Moles/Vol] 110 mmol/L High 98-107 [facility] Comprehensive Metabolic Prof ilon 06-11-2024 Albumin [Mass/Vol] 3.1 g/dL Low 3.2-5.0 [facility] Comment on above: Performed By: #### L 500.4050, L100.0100 #### [facility] [address] [place], [address] Albumin/Globulin [Mass ratio] 0.8 {ratio} Low 0.9-2.4 [facility] Comment on above: Performed By: #### L 500.4050, L100.0100 #### [facility] [address] [place], [address] ALK P 331 U/L High 45-117 [facility] Comment on above: Performed By: #### L 500.4050, L100.0100 #### [facility] [address] [place], [address] ALT [Catalytic activity/Vol] 430 U/L High 13-56 [facility] Comment on above: Performed By: #### L 500.4050, L100.0100 #### [facility] [address] [place], [address] AST [Catalytic activity/Vol] 271 U/L High 15-37 [facility] Comment on above: Performed By: #### L 500.4050, L100.0100 #### [facility] [address] [place], [address] Bilirubin [Mass/Vol] 1.20 mg/dL High 0.20-1.00 [facility] Comment on above: Result Comment: For patients on eltrombopag therapy, use of Dimension [place] TBIL is not recommended. Performed By: #### L 500.4050, L100.0100 #### [facility] [address] [place], [address] BUN/CRE 13.3 RATIO Normal 10-20 [facility] Comment on above: Performed By: #### L 500.4050, L100.0100 #### [facility] [address] [place], [address] CA,Total 8.6 mg/dL Normal 8.5-10.1 [facility] Comment on above: Performed By: #### L 500.4050, L100.0100 #### [facility] [address] [place], [address] Chloride [Moles/Vol] 110 mmol/L High 98-107 [facility] Comment on above: Performed By: #### L 500.4050, L100.0100 #### [facility] [address] [place], [address] CO2 [Moles/Vol] 25.0 mmol/L Normal 21.0-32.0 [facility] Comment on above: Performed By: #### L 500.4050, L100.0100 #### [facility] [address] [place], [address] Creatinine [Mass/Vol] 0.75 mg/dL Normal 0.55-1.02 [facility] Comment on above: Result Comment: The validity of the calculated GFR GFRAA in patients over 70 years has not been determined. Clinical correlation is essential. Performed By: #### L 500.4050, L100.0100 #### [facility] [address] [place], [address] ECRCL 118.46 ml/min Normal [facility] Comment on above: Performed By: #### L 500.4050, L100.0100 #### [facility] [address] [place], [address] EST GFR - AA 104 mL/min Normal >60 [facility] Comment on above: Result Comment: Afri can [employer] GFR Calc Performed By: #### L 500.4050, L100.0100 #### [facility] [address] [place], [address] GAP 5 Normal 5-15 [facility] Comment on above: Performed By: #### L 500.4050, L100.0100 #### [facility] [address] [place], [address] GFR/1.73 sq M.predicted among non-blacks MDRD (S/P/Bld) [Vol rate/Area] 86 mL/min/{1.73_m2} Normal >60 [facility] Comment on above: Result Comment: Non- GFR Calc Performed By: #### L 500.4050, L100.0100 #### [facility] [address] [place], [address] Globulin (S) [Mass/Vol] 4.1 g/dL Normal 2.2-4.2 [facility] Comment on above: Performed By: #### L 500.4050, L100.0100 #### [facility] [address] [place], [address] Glucose [Mass/Vol] 90 mg/dL Normal 74-106 [facility] Comment on above: Performed By: #### L 500.4050, L100.0100 #### [facility] [address] [place], [address] Potassium [Moles/Vol] 3.5 mmol/L Normal 3.5-5.1 [facility] Comment on above: Performed By: #### L 500.4050, L100.0100 #### [facility] [address] [place], [address] Sodium [Moles/Vol] 140 mmol/L Normal 136-145 [facility] Comment on above: Performed By: #### L 500.4050, L100.0100 #### [facility] [address] [place], [address] T PROT 7.2 g/dL Normal 6.4-8.2 [facility] Comment on above: Performed By: #### L 500.4050, L100.0100 #### [facility] [address] [place], [address] Urea nitrogen [Mass/Vol] 10 mg/dL Normal 7-18 [facility] Comment on above: Performed By: #### L 500.4050, L100.0100 #### [facility] [address] [place], [address] Discharge Instructionon -3 Discharge Instruction [facility] Medical Records Department [address] [place] [address] Instructions for Home/Discharge Instructions 06/11/24 1028 MR#: [id number] Acct: [id number] Name: LING DIAS Rep #: [id number] : 1970 54 From: Ghanshyam Puente MD PCP: Charlee Mian [place], [facility] Status:ADM IN Discharge Instructions Diet Discharge Diet: [...] DAILY Referrals / Follow Up: Charlee Humphries NP, [facility] [Primary Care Provider] - Within 1 Week Disposition Disposition (needs filled in before D/C Order can be placed): Home, Self Care 06/11/24 1030 Ghanshyam Puente MD CC: [facility] Charlee Humphries; Dr. Kadie Ta MD Signed Normal [facility] Eosinophil percentageOrdered By: Ghanshyam Puente on 06-11-2024 Eosinophils/100 WBC (Bld) 0.0 % 0-5 [facility] Erythrocyte distribution wid th ratioOrdered By: Ghanshyam Puente on 06-11-2024 Erythrocyte distribution width (RBC) [Ratio] 13.4 % 11.6-14.6 [facility] Erythrocyte distribution wid th standard deviationOrdered By: Ghanshyam Puente on 06-11-2024 Erythrocyte distribution width (RBC) [Entitic vol] 39.9 fL 35.1-43.9 [facility] Estimated glomerular filtrat ion rate (GFR) AmericanOrdered By: Ghanshyam Puente on 06-11-2024 Estimated GFR (MDRD) Amer 104 mL/min >60 [facility] Comment on above: GFR Calc Estimation of creatinine jorge aranceOrdered By: Ghanshyam Puente on 06-11-2024 Estimated Creatinine Clearance Calc 118.46 ml/min [facility] Glomerular filtration rate ( GFR) estimationOrdered By: Ghanshyam Puente on 06-11-2024 Estimated GFR (MDRD) Non-Af Amer 86 mL/min >60 [facility] Comment on above: Non- GFR Calc Glucose measurementOrdered B y: Ghanshyam Puente on 06-11-2024 Glucose [Mass/Vol] 90 mg/dL 74-106 [facility] Hematocrit Auto (Bld) [Volum e fraction]Ordered By: Ghanshyam Puente on 06-11-2024 Hematocrit (Bld) [Volume fraction] 38.4 % 37-47 [facility] Hemoglobin measurementOrdere d By: Ghanshyam Puente on 06-11-2024 Hemoglobin (Bld) [Mass/Vol] 12.7 g/dL 12.0-15.0 [facility] Immature granulocytes/100 WB C Auto (Bld)Ordered By: Ghanshyam Puente on 06-11-2024 Immature granulocytes/100 WBC (Bld) 0.500 % 0.0-0.9 [facility] Comment on above: IG% - Immature Granu locytes (promyelocytes, myelocytes and metamyelocytes) > 1% indicates that a LEFT SHIFT is Present. Laboratory - Chemistry and C hemistry - challengeOrdered By: Ghanshyam Puente on 06-11-2024 AST [Catalytic activity/Vol] 271 U/L High 15-37 [facility] Lymphocytes Auto (Unsp spec) [#/Vol]Ordered By: Ghanshyam Puente on 06-11-2024 Lymphocytes (Bld) [#/Vol] 1.31 10*3/uL 0.83-4.5 1 [facility] Lymphocytes/100 WBC Auto (Un sp spec)Ordered By: Ghanshyam Puente on 06-11-2024 Lymphocytes/100 WBC (Bld) 30.6 % 19-41 [facility] MCV (mean corpuscular volume ) determinationOrdered By: Ghanshyam Puente on 06-11-2024 MCV (RBC) [Entitic vol] 81.7 fL 81-99 [facility] Mean corpuscular hemoglobin (MCH) determinationOrdered By: Ghanshyam Puente on 06-11-2024 MCH (RBC) [Entitic mass] 27.0 pg 27.0-32.0 [facility] Mean corpuscular hemoglobin concentration (MCHC) determinationOrdered By: Ghanshyam Puente on 06-11-2024 MCHC (RBC) [Mass/Vol] 33.1 g/dL 32-36 [facility] Mean platelet volume determi nationOrdered By: Ghanshyam Puente on 06-11-2024 Platelet mean volume (Bld) [Entitic vol] 9.6 fL 6.2-12.0 [facility] Monocyte percentageOrdered B y: Ghanshyam Puente on 06-11-2024 Monocytes/100 WBC (Bld) 6.1 % 0-10 [facility] Neutrophil percentageOrdered By: Ghanshyam Puente on 06-11-2024 Neutrophils/100 WBC (Bld) 62.1 % 47-70 [facility] Nucleated red blood cell per centageOrdered By: Ghnashyam Puente on 06-11-2024 Nucleated RBC/100 WBC (Bld) [Ratio] 0 % 0-5 [facility] Platelet countOrdered By: Gina Puente on 06-11-2024 Platelets (Bld) [#/Vol] 213 10*3/uL 150-450 [facility] Potassium measurementOrdered By: Ghanshyam Puente on 06-11-2024 Potassium [Moles/Vol] 3.5 mmol/L 3.5-5.1 [facility] RBC Auto (Bld) [#/Vol]Ordere d By: Ghanshyam Puente on 06-11-2024 RBC (Bld) [#/Vol] 4.70 10*6/uL 4.2-5.4 [facility] Serum anion gap measurementO rdered By: Ghanshyam Puente on 06-11-2024 Anion gap [Moles/Vol] 5 mmol/L 5-15 [facility] Serum globulin measurementOr dered By: Ghanshyam Puente on 06-11-2024 Globulin (S) [Mass/Vol] 4.1 g/dL 2.2-4.2 [facility] Serum or plasma alanine umaña otransferase (ALT) measurementOrdered By: Ghanshyam Puente on 06-11-2024 ALT [Catalytic activity/Vol] 430 U/L High 13-56 [facility] Serum or plasma albumin eliel urement (mass/volume)Ordered By: Ghanshyam Puente on 06-11-2024 Albumin [Mass/Vol] 3.1 g/dL Low 3.2-5.0 [facility] Serum or plasma alkaline josefina sphatase measurementOrdered By: Ghanshyam Puente on 06-11-2024 ALP [Catalytic activity/Vol] 331 U/L High 45-117 [facility] Serum or plasma calcium eliel urement (mass/volume)Ordered By: Ghanshyam Puente on 06-11-2024 Calcium [Mass/Vol] 8.6 mg/dL 8.5-10.1 [facility] Serum or plasma creatinine m easurement (mass/volume)Ordered By: Ghanshyam Puente on 06-11-2024 Creatinine [Mass/Vol] 0.75 mg/dL 0.55-1.02 [facility] Comment on above: The validity of the calculated GFR & GFRAA in patients over 70 years has not been determined. Clinical correlation is essential. Serum or plasma urea nitroge n measurement (mass/volume)Ordered By: Ghanshyam Puente on 06-11-2024 Urea nitrogen [Mass/Vol] 10 mg/dL 7-18 [facility] Sodium levelOrdered By: Theo Puente on 06-11-2024 Sodium [Moles/Vol] 140 mmol/L 136-145 [facility] Total proteinOrdered By: Jose Antonio ilceajazzy Kwame on 06-11-2024 Protein [Mass/Vol] 7.2 g/dL 6.4-8.2 [facility] White blood cell (WBC) count Ordered By: Ghanshyam Puente on 06-11-2024 WBC (Bld) [#/Vol] 4.3 10*3/uL Low 4.4-11.0 [facility] Basic Metabolic Profile (BMP )on 06-10-2024 BUN/CRE 17.0 RATIO Normal 10-20 [facility] Comment on above: Performed By: #### L 300.3900, L501.5200, L500.4050, L501.2300, L500.2500, L100.0100, L501.9520, L500.3400 #### [facility] [address] [place], [address] CA,Total 8.4 mg/dL Low 8.5-10.1 [facility] Comment on above: Performed By: #### L 300.3900, L501.5200, L500.4050, L501.2300, L500.2500, L100.0100, L501.9520, L500.3400 #### [facility] [address] [place], [address] Chloride [Moles/Vol] 108 mmol/L High 98-107 [facility] Comment on above: Performed By: #### L 300.3900, L501.5200, L500.4050, L501.2300, L500.2500, L100.0100, L501.9520, L500.3400 #### [facility] [address] [place], [address] CO2 [Moles/Vol] 28.0 mmol/L Normal 21.0-32.0 [facility] Comment on above: Performed By: #### L 300.3900, L501.5200, L500.4050, L501.2300, L500.2500, L100.0100, L501.9520, L500.3400 #### [facility] [address] [place], [place], [phone] Creatinine [Mass/Vol] 0.82 mg/dL Normal 0.55-1.02 [facility] Comment on above: Result Comment: The validity of the calculated GFR GFRAA in patients over 70 years has not been determined. Clinical correlation is essential. Performed By: #### L 300.3900, L501.5200, L500.4050, L501.2300, L500.2500, L100.0100, L501.9520, L500.3400 #### [facility] [address] [place], [place], [phone] ECRCL 108.34 ml/min Normal [facility] Comment on above: Performed By: #### L 300.3900, L501.5200, L500.4050, L501.2300, L500.2500, L100.0100, L501.9520, L500.3400 #### [facility] [address] [place], [place], [phone] EST GFR - AA 93 mL/min Normal >60 [facility] Comment on above: Result Comment: Afri can [place] GFR Calc Performed By: #### L 300.3900, L501.5200, L500.4050, L501.2300, L500.2500, L100.0100, L501.9520, L500.3400 #### [facility] [address] [place], [place], [id number] GAP 4 Low 5-15 [facility] Comment on above: Performed By: #### L 300.3900, L501.5200, L500.4050, L501.2300, L500.2500, L100.0100, L501.9520, L500.3400 #### [facility] [address] [place], [address] GFR/1.73 sq M.predicted among non-blacks MDRD (S/P/Bld) [Vol rate/Area] 77 mL/min/{1.73_m2} Normal >60 [facility] Comment on above: Result Comment: Non- GFR Calc Performed By: #### L 300.3900, L501.5200, L500.4050, L501.2300, L500.2500, L100.0100, L501.9520, L500.3400 #### [facility] [address] [place], [address] Glucose [Mass/Vol] 86 mg/dL Normal 74-106 [facility] Comment on above: Performed By: #### L 300.3900, L501.5200, L500.4050, L501.2300, L500.2500, L100.0100, L501.9520, L500.3400 #### [facility] [address] [place], [address] Potassium [Moles/Vol] 3.8 mmol/L Normal 3.5-5.1 [facility] Comment on above: Performed By: #### L 300.3900, L501.5200, L500.4050, L501.2300, L500.2500, L100.0100, L501.9520, L500.3400 #### [facility] [address] [place], [address] Sodium [Moles/Vol] 141 mmol/L Normal 136-145 [facility] Comment on above: Performed By: #### L 300.3900, L501.5200, L500.4050, L501.2300, L500.2500, L100.0100, L501.9520, L500.3400 #### [facility] [address] [place], [address] Urea nitrogen [Mass/Vol] 14 mg/dL Normal 7-18 [facility] Comment on above: Performed By: #### L 300.3900, L501.5200, L500.4050, L501.2300, L500.2500, L100.0100, L501.9520, L500.3400 #### [facility] [address] [place], [address] Bilirubin directOrdered By: Kadie Ta on 06-10-2024 Bilirubin.direct [Mass/Vol] 0.34 mg/dL High 0.00-0.30 [facility] CBC W/Diff, Automatedon 05-14 Absolute Lymph 0.95 X10 3/uL Normal 0.83-4.51 [facility] Comment on above: Performed By: #### L 300.3900, L501.5200, L500.4050, L501.2300, L500.2500, L100.0100, L501.9520, L500.3400 #### [facility] [address] [place], [address] Absolute Neut 2.8 X10 3/uL Normal 2.0-7.7 [facility] Comment on above: Performed By: #### L 300.3900, L501.5200, L500.4050, L501.2300, L500.2500, L100.0100, L501.9520, L500.3400 #### [facility] [address] [place], [address] Basophils/100 WBC (Bld) 0.5 % Normal 0-1 [facility] Comment on above: Performed By: #### L 300.3900, L501.5200, L500.4050, L501.2300, L500.2500, L100.0100, L501.9520, L500.3400 #### [facility] [address] [place], [address] Eosinophils/100 WBC (Bld) 0.0 % Normal 0-5 [facility] Comment on above: Performed By: #### L 300.3900, L501.5200, L500.4050, L501.2300, L500.2500, L100.0100, L501.9520, L500.3400 #### [facility] [address] [place], [address] Erythrocyte distribution width (RBC) [Ratio] 14.0 % Normal 11.6-14.6 [facility] Comment on above: Performed By: #### L 300.3900, L501.5200, L500.4050, L501.2300, L500.2500, L100.0100, L501.9520, L500.3400 #### [facility] [address] [place], [address] Hematocrit (Bld) [Volume fraction] 39.2 % Normal 37-47 [facility] Comment on above: Performed By: #### L 300.3900, L501.5200, L500.4050, L501.2300, L500.2500, L100.0100, L501.9520, L500.3400 #### [facility] [address] [place], [address] Hemoglobin (Bld) [Mass/Vol] 12.4 g/dL Normal 12.0-15.0 [facility] Comment on above: Performed By: #### L 300.3900, L501.5200, L500.4050, L501.2300, L500.2500, L100.0100, L501.9520, L500.3400 #### [facility] [address] [place], [address] IG% 0.500 Normal 0.0-0.9 [facility] Comment on above: Result Comment: IG% - Immature Granulocytes (promyelocytes, myelocytes and metamyelocytes) > 1% indicates that a LEFT SHIFT is Present. Performed By: #### L 300.3900, L501.5200, L500.4050, L501.2300, L500.2500, L100.0100, L501.9520, L500.3400 #### [facility] [address] [place], [address] Lymphocytes/100 WBC (Bld) 23.5 % Normal 19-41 [facility] Comment on above: Performed By: #### L 300.3900, L501.5200, L500.4050, L501.2300, L500.2500, L100.0100, L501.9520, L500.3400 #### [facility] [address] [place], [address] MCH (RBC) [Entitic mass] 26.8 pg Low 27.0-32.0 [facility] Comment on above: Performed By: #### L 300.3900, L501.5200, L500.4050, L501.2300, L500.2500, L100.0100, L501.9520, L500.3400 #### [facility] [address] [place], [address] MCHC (RBC) [Mass/Vol] 31.6 g/dL Low 32-36 [facility] Comment on above: Performed By: #### L 300.3900, L501.5200, L500.4050, L501.2300, L500.2500, L100.0100, L501.9520, L500.3400 #### [facility] [address] [place], [address] MCV (RBC) [Entitic vol] 84.8 fL Normal 81-99 [facility] Comment on above: Performed By: #### L 300.3900, L501.5200, L500.4050, L501.2300, L500.2500, L100.0100, L501.9520, L500.3400 #### [facility] [address] [place], [address] Monocytes/100 WBC (Bld) 5.4 % Normal 0-10 [facility] Comment on above: Performed By: #### L 300.3900, L501.5200, L500.4050, L501.2300, L500.2500, L100.0100, L501.9520, L500.3400 #### [facility] [address] [place], [address] Neutrophils/100 WBC (Bld) 70.1 % High 47-70 [facility] Comment on above: Performed By: #### L 300.3900, L501.5200, L500.4050, L501.2300, L500.2500, L100.0100, L501.9520, L500.3400 #### [facility] [address] [facility] [place], [address] Nucleated RBC (Bld) [#/Vol] 0 10*3/uL Normal 0-5 [facility] Comment on above: Performed By: #### L 300.3900, L501.5200, L500.4050, L501.2300, L500.2500, L100.0100, L501.9520, L500.3400 #### [facility] [address] [place], [address] Platelet mean volume (Bld) [Entitic vol] 9.4 fL Normal 6.2-12.0 [facility] Comment on above: Performed By: #### L 300.3900, L501.5200, L500.4050, L501.2300, L500.2500, L100.0100, L501.9520, L500.3400 #### [facility] [address] [place], [address] Platelets (Bld) [#/Vol] 187 10*3/uL Normal 150-450 [facility] Comment on above: Performed By: #### L 300.3900, L501.5200, L500.4050, L501.2300, L500.2500, L100.0100, L501.9520, L500.3400 #### [facility] [address] [place], [address] RBC (Bld) [#/Vol] 4.62 10*6/uL Normal 4.2-5.4 [facility] Comment on above: Performed By: #### L 300.3900, L501.5200, L500.4050, L501.2300, L500.2500, L100.0100, L501.9520, L500.3400 #### [facility] [address] [place], [address] RDW SD 43.7 fl Normal 35.1-43.9 [facility] Comment on above: Performed By: #### L 300.3900, L501.5200, L500.4050, L501.2300, L500.2500, L100.0100, L501.9520, L500.3400 #### [facility] [address] [place], [address] WBC (Bld) [#/Vol] 4.1 10*3/uL Low 4.4-11.0 [facility] Comment on above: Performed By: #### L 300.3900, L501.5200, L500.4050, L501.2300, L500.2500, L100.0100, L501.9520, L500.3400 #### [facility] [address] [place], [place], [phone] Comprehensive Metabolic Prof ilon 06-10-2024 Albumin/Globulin [Mass ratio] 0.8 {ratio} Low 0.9-2.4 [facility] Comment on above: Performed By: #### L 300.3900, L501.5200, L500.4050, L501.2300, L500.2500, L100.0100, L501.9520, L500.3400 #### [facility] [address] [place], [place], [phone] International normalized rat io (INR) calculationOrdered By: Kadie Ta on 06-10-2024 INR Coag (Bld) [Relative time] 1.0 {INR} [facility] Liver Profileon 06-10-2024 Albumin [Mass/Vol] 3.2 g/dL Normal 3.2-5.0 [facility] Comment on above: Performed By: #### L 300.3900, L501.5200, L500.4050, L501.2300, L500.2500, L100.0100, L501.9520, L500.3400 #### [facility] [address] [place], [place], [phone] ALK P 180 U/L High 45-117 [facility] Comment on above: Performed By: #### L 300.3900, L501.5200, L500.4050, L501.2300, L500.2500, L100.0100, L501.9520, L500.3400 #### [facility] [address] [place], [place], [id number] ALT [Catalytic activity/Vol] 193 U/L High 13-56 [facility] Comment on above: Performed By: #### L 300.3900, L501.5200, L500.4050, L501.2300, L500.2500, L100.0100, L501.9520, L500.3400 #### [facility] [address] [place], [address] AST [Catalytic activity/Vol] 166 U/L High 15-37 [facility] Comment on above: Performed By: #### L 300.3900, L501.5200, L500.4050, L501.2300, L500.2500, L100.0100, L501.9520, L500.3400 #### [facility] [address] [place], [address] Bilirubin [Mass/Vol] 1.10 mg/dL High 0.20-1.00 [facility] Comment on above: Result Comment: For patients on eltrombopag therapy, use of Dimension [place] TBIL is not recommended. Performed By: #### L 300.3900, L501.5200, L500.4050, L501.2300, L500.2500, L100.0100, L501.9520, L500.3400 #### [facility] [address] [place], [place], [phone] (498) Bilirubin.direct [Mass/Vol] 0.34 mg/dL High 0.00-0.30 [facility] Comment on above: Performed By: #### L 300.3900, L501.5200, L500.4050, L501.2300, L500.2500, L100.0100, L501.9520, L500.3400 #### [facility] [address] [place], [place], [phone] (053) Globulin (S) [Mass/Vol] 3.8 g/dL Normal 2.2-4.2 [facility] Comment on above: Performed By: #### L 300.3900, L501.5200, L500.4050, L501.2300, L500.2500, L100.0100, L501.9520, L500.3400 #### [facility] [address] [place], [place], [phone] (335) T PROT 7.0 g/dL Normal 6.4-8.2 [facility] Comment on above: Performed By: #### L 300.3900, L501.5200, L500.4050, L501.2300, L500.2500, L100.0100, L501.9520, L500.3400 #### [facility] [address] [place], [address] Magnesiumon 06-10-2024 Magnesium [Mass/Vol] 2.1 mg/dL Normal 1.6-2.6 [facility] Comment on above: Performed By: #### L 300.3900, L501.5200, L500.4050, L501.2300, L500.2500, L100.0100, L501.9520, L500.3400 ####[facility] [address] [place], [place], [phone] Magnesium measurementOrdered By: Kadie Ta on 06-10-2024 Magnesium [Mass/Vol] 2.1 mg/dL 1.6-2.6 [facility] Phosphoruson 06-10-2024 Phosphate [Mass/Vol] 2.9 mg/dL Normal 2.5-4.9 [facility] Comment on above: Performed By: #### L 300.3900, L501.5200, L500.4050, L501.2300, L500.2500, L100.0100, L501.9520, L500.3400 #### [facility] [address] [place], [place], [phone] Phosphorus measurementOrdere d By: aKdie Ta on 06-10-2024 Phosphorus Level 2.9 mg/dL 2.5-4.9 [facility] Prothrombin Time w/INRon INR Coag (PPP) [Relative time] 1.0 {INR} Normal [facility] Comment on above: Performed By: #### L 300.3900, L501.5200, L500.4050, L501.2300, L500.2500, L100.0100, L501.9520, L500.3400 #### [facility] [address] [place], [address] PT Coag (PPP) [Time] 13.5 s Normal 11.7-14.9 [facility] Comment on above: Performed By: #### L 300.3900, L501.5200, L500.4050, L501.2300, L500.2500, L100.0100, L501.9520, L500.3400 #### [facility] [address] [place], [place], [phone] Prothrombin timeOrdered By: Kadie Ta on 06-10-2024 PT Coag (PPP) [Time] 13.5 s 11.7-14.9 [facility] TSH QnOrdered By: Kadie Marino ingh on 06-10-2024 Thyroid Stimulating Hormone (TSH) 2.440 uIU/mL 0.358-3.740 [facility] Thyroid Stim Hormone (TSH)on 06-10-2024 TSH 2.440 uIU/mL Normal 0.358-3.740 [facility] Comment on above: Performed By: #### L 300.3900, L501.5200, L500.4050, L501.2300, L500.2500, L100.0100, L501.9520, L500.3400 ####[facility] [address] [place], [place], [phone] Triglycerideson 06-10-2024 Triglyceride [Mass/Vol] 107 mg/dL Normal [facility] Comment on above: Result Comment: The drugs N-Acetylcysteine and Metamizole may falsely depress this assay. Serum Triglycerides Reference Interval Normal <150 mg/dL Borderline high 150 - 199 mg/dL High 200 - 499 mg/dL Very High > or = 500 mg/dL Performed By: #### L 501.5000 ####[facility] [address] [place], [place], [phone] Triglycerides measurementOrd ered By: Ghanshyam Puente on 06-10-2024 Triglyceride [Mass/Vol] 107 mg/dL <199 [facility] Comment on above: The drugs N-Acetylcy steine and Metamizole may falsely depress this assay.Serum Triglycerides Reference Interval Normal <150 mg/dL Borderline high 150 - 199 mg/dL High 200 - 499 mg/dL Very High > or = 500 mg/dL Bilirubin Test strip Ql (U)O rdered By: Marquise Brown on 06-09-2024 Bilirubin Ql (U) Negative Negative [facility] CBC W/Diff, Automatedon 11-2 Absolute Lymph 1.23 X10 3/uL Normal 0.83-4.51 [facility] Comment on above: Performed By: #### L 500.4050, L501.2450, L100.0100, L501.4020 ####[facility] [address] [place], [address] Absolute Neut 4.2 X10 3/uL Normal 2.0-7.7 [facility] Comment on above: Performed By: #### L 500.4050, L501.2450, L100.0100, L501.4020 ####[facility] [address] [place], [address] Basophils/100 WBC (Bld) 0.5 % Normal 0-1 [facility] Comment on above: Performed By: #### L 500.4050, L501.2450, L100.0100, L501.4020 ####[facility] [address] [place], [address] Eosinophils/100 WBC (Bld) 0.0 % Normal 0-5 [facility] Comment on above: Performed By: #### L 500.4050, L501.2450, L100.0100, L501.4020 ####[facility] [address] [place], [address] Erythrocyte distribution width (RBC) [Ratio] 13.8 % Normal 11.6-14.6 [facility] Comment on above: Performed By: #### L 500.4050, L501.2450, L100.0100, L501.4020 ####[facility] [address] [place], [address] Hematocrit (Bld) [Volume fraction] 43.2 % Normal 37-47 [facility] Comment on above: Performed By: #### L 500.4050, L501.2450, L100.0100, L501.4020 ####[facility] [address] [place], [address] Hemoglobin (Bld) [Mass/Vol] 14.0 g/dL Normal 12.0-15.0 [facility] Comment on above: Performed By: #### L 500.4050, L501.2450, L100.0100, L501.4020 ####[facility] [address] [place], [address] IG% 0.300 Normal 0.0-0.9 [facility] Comment on above: Result Comment: IG% - Immature Granulocytes (promyelocytes, myelocytes and metamyelocytes) > 1% indicates that a LEFT SHIFT is Present. Performed By: #### L 500.4050, L501.2450, L100.0100, L501.4020 ####[facility] [address] [place], [address] Lymphocytes/100 WBC (Bld) 21.4 % Normal 19-41 [facility] Comment on above: Performed By: #### L 500.4050, L501.2450, L100.0100, L501.4020 ####[facility] [address] [place], [address] MCH (RBC) [Entitic mass] 27.0 pg Normal 27.0-32.0 [facility] Comment on above: Performed By: #### L 500.4050, L501.2450, L100.0100, L501.4020 ####[facility] [address] [place], [address] MCHC (RBC) [Mass/Vol] 32.4 g/dL Normal 32-36 [facility] Comment on above: Performed By: #### L 500.4050, L501.2450, L100.0100, L501.4020 ####[facility] [address] [place], [address] MCV (RBC) [Entitic vol] 83.2 fL Normal 81-99 [facility] Comment on above: Performed By: #### L 500.4050, L501.2450, L100.0100, L501.4020 ####[facility] [address] [place], [address] Monocytes/100 WBC (Bld) 5.1 % Normal 0-10 [facility] Comment on above: Performed By: #### L 500.4050, L501.2450, L100.0100, L501.4020 ####[facility] [address] [place], [address] Neutrophils/100 WBC (Bld) 72.7 % High 47-70 [facility] Comment on above: Performed By: #### L 500.4050, L501.2450, L100.0100, L501.4020 ####[facility] [address] [place], [address] Nucleated RBC (Bld) [#/Vol] 0 10*3/uL Normal 0-5 [facility] Comment on above: Performed By: #### L 500.4050, L501.2450, L100.0100, L501.4020 ####[facility] [address] [place], [address] Platelet mean volume (Bld) [Entitic vol] 9.8 fL Normal 6.2-12.0 [facility] Comment on above: Performed By: #### L 500.4050, L501.2450, L100.0100, L501.4020 ####[facility] [address] [place], [address] Platelets (Bld) [#/Vol] 216 10*3/uL Normal 150-450 [facility] Comment on above: Performed By: #### L 500.4050, L501.2450, L100.0100, L501.4020 ####[facility] [address] [place], [address] RBC (Bld) [#/Vol] 5.19 10*6/uL Normal 4.2-5.4 [facility] Comment on above: Performed By: #### L 500.4050, L501.2450, L100.0100, L501.4020 ####[facility] [address] [place], [address] RDW SD 41.7 fl Normal 35.1-43.9 [facility] Comment on above: Performed By: #### L 500.4050, L501.2450, L100.0100, L501.4020 ####[facility] [address] [place], [address] WBC (Bld) [#/Vol] 5.7 10*3/uL Normal 4.4-11.0 [facility] Comment on above: Performed By: #### L 500.4050, L501.2450, L100.0100, L501.4020 ####[facility] [address] [place], [address] Comprehensive Metabolic Prof [facility] 06-09-2024 Albumin [Mass/Vol] 3.6 g/dL Normal 3.2-5.0 [facility] Comment on above: Order Comment: 'TROP ' Serial specimen #1, #2 or #3: 1 Performed By: #### L 500.4050, L501.2450, L100.0100, L501.4020 ####[facility] [address] [place], [address] Albumin/Globulin [Mass ratio] 0.8 {ratio} Low 0.9-2.4 [facility] Comment on above: Order Comment: 'TROP ' Serial specimen #1, #2 or #3: 1 Performed By: #### L 500.4050, L501.2450, L100.0100, L501.4020 ####[facility] [address] [place], [address] ALK P 156 U/L High 45-117 [facility] Comment on above: Order Comment: 'TROP ' Serial specimen #1, #2 or #3: 1 Performed By: #### L 500.4050, L501.2450, L100.0100, L501.4020 ####[facility] [address] [place], [address] ALT [Catalytic activity/Vol] 73 U/L High 13-56 [facility] Comment on above: Order Comment: 'TROP ' Serial specimen #1, #2 or #3: 1 Performed By: #### L 500.4050, L501.2450, L100.0100, L501.4020 ####[facility] [address] [place], [address] AST [Catalytic activity/Vol] 77 U/L High 15-37 [facility] Comment on above: Order Comment: 'TROP ' Serial specimen #1, #2 or #3: 1 Performed By: #### L 500.4050, L501.2450, L100.0100, L501.4020 ####[facility] [address] [place], [address] Bilirubin [Mass/Vol] 0.80 mg/dL Normal 0.20-1.00 [facility] Comment on above: Order Comment: 'TROP ' Serial specimen #1, #2 or #3: 1 Result Comment: For patients on eltrombopag therapy, use of Dimension [place] TBIL is not recommended. Performed By: #### L 500.4050, L501.2450, L100.0100, L501.4020 ####[facility] [address] [place], [address] BUN/CRE 19.0 RATIO Normal 10-20 [facility] Comment on above: Order Comment: 'TROP ' Serial specimen #1, #2 or #3: 1 Performed By: #### L 500.4050, L501.2450, L100.0100, L501.4020 ####[facility] [facility] [address] [place], [address] CA,Total 8.7 mg/dL Normal 8.5-10.1 [facility] Comment on above: Order Comment: 'TROP ' Serial specimen #1, #2 or #3: 1 Performed By: #### L 500.4050, L501.2450, L100.0100, L501.4020 ####[facility] [address] [place], [address] Chloride [Moles/Vol] 109 mmol/L High 98-107 [facility] Comment on above: Order Comment: 'TROP ' Serial specimen #1, #2 or #3: 1 Performed By: #### L 500.4050, L501.2450, L100.0100, L501.4020 ####[facility] [address] [place], [address] CO2 [Moles/Vol] 26.0 mmol/L Normal 21.0-32.0 [facility] Comment on above: Order Comment: 'TROP ' Serial specimen #1, #2 or #3: 1 Performed By: #### L 500.4050, L501.2450, L100.0100, L501.4020 ####[facility] [address] [place], [address] Creatinine [Mass/Vol] 0.89 mg/dL Normal 0.55-1.02 [facility] Comment on above: Order Comment: 'TROP ' Serial specimen #1, #2 or #3: 1 Result Comment: The validity of the calculated GFR GFRAA in patients over 70 years has not been determined. Clinical correlation is essential. Performed By: #### L 500.4050, L501.2450, L100.0100, L501.4020 ####[facility] [address] [place], [address] ECRCL 98.98 ml/min Normal [facility] Comment on above: Order Comment: 'TROP ' Serial specimen #1, #2 or #3: 1 Performed By: #### L 500.4050, L501.2450, L100.0100, L501.4020 ####[facility] [address] [place], [address] EST GFR - AA 85 mL/min Normal >60 [facility] Comment on above: Order Comment: 'TROP ' Serial specimen #1, #2 or #3: 1 Result Comment: Afri can [place] GFR Calc Performed By: #### L 500.4050, L501.2450, L100.0100, L501.4020 ####[facility] [address] [place], [address] GAP 5 Normal 5-15 [facility] Comment on above: Order Comment: 'TROP ' Serial specimen #1, #2 or #3: 1 Performed By: #### L 500.4050, L501.2450, L100.0100, L501.4020 ####[facility] [address] [place], [address] GFR/1.73 sq M.predicted among non-blacks MDRD (S/P/Bld) [Vol rate/Area] 70 mL/min/{1.73_m2} Normal >60 [facility] Comment on above: Order Comment: 'TROP ' Serial specimen #1, #2 or #3: 1 Result Comment: Non- GFR Calc Performed By: #### L 500.4050, L501.2450, L100.0100, L501.4020 ####[facility] [address] [place], [address] Globulin (S) [Mass/Vol] 4.3 g/dL High 2.2-4.2 [facility] Comment on above: Order Comment: 'TROP ' Serial specimen #1, #2 or #3: 1 Performed By: #### L 500.4050, L501.2450, L100.0100, L501.4020 ####[facility] [address] [place], [address] Glucose [Mass/Vol] 98 mg/dL Normal 74-106 [facility] Comment on above: Order Comment: 'TROP ' Serial specimen #1, #2 or #3: 1 Performed By: #### L 500.4050, L501.2450, L100.0100, L501.4020 ####[facility] [address] [place], [address] Potassium [Moles/Vol] 3.8 mmol/L Normal 3.5-5.1 [facility] Comment on above: Order Comment: 'TROP ' Serial specimen #1, #2 or #3: 1 Performed By: #### L 500.4050, L501.2450, L100.0100, L501.4020 ####[facility] [address] [place], [address] Sodium [Moles/Vol] 140 mmol/L Normal 136-145 [facility] Comment on above: Order Comment: 'TROP ' Serial specimen #1, #2 or #3: 1 Performed By: #### L 500.4050, L501.2450, L100.0100, L501.4020 ####[facility] [address] [place], [address] T PROT 7.9 g/dL Normal 6.4-8.2 [facility] Comment on above: Order Comment: 'TROP ' Serial specimen #1, #2 or #3: 1 Performed By: #### L 500.4050, L501.2450, L100.0100, L501.4020 ####[facility] [address] [place], [address] Urea nitrogen [Mass/Vol] 17 mg/dL Normal 7-18 [facility] Comment on above: Order Comment: 'TROP ' Serial specimen #1, #2 or #3: 1 Performed By: #### L 500.4050, L501.2450, L100.0100, L501.4020 ####[facility] [address] [place], [address] Emergency Department Summary on 06-09-2024 Emergency Department Summary [facility] Medical Records Department [address] [place] [address] Emergency Department Summary 06/09/24 MR#: [id number] Acct: [id number] Name: LING DIAS Rep #: [id number] : 1970 54 From: Marquise Brown DO PCP: Charlee Humphries, SHELL SORTER-C Status:ADM IN Location: [place] [address] HPI History of Present Illness Chief Complaint: [...] 11/21/17 @ 12:03 by Millicent Morris NP, SHELL SORTER-C) Smoking Status: Never smoker alcohol intake: never [...] for pancreat (more content not included)... Normal [facility] Epithelial cells.squamous LM Ql (Urine sed)Ordered By: Marquise Brown on 06-09-2024 Epithelial cells.squamous LM.HPF (Urine sed) [#/Area] 0 /[HPF] 5-10 [facility] Gallbladderon 06-09-[address] [facility] Imaging Services [address] [place] [address] Gallbladder MR#: [id number] Acct: [id number] Name: LING DIAS Rep #: [id number] : 1970 F 54 From: Tomasz Salgado MD PCP: Charlee Humphries, SHELL SORTER-C Status: REG ER Study: Gallbladder Date of Exam: 06/09/24 Exam# [id number] Ordering Dr: Marquise Brown DO [id number] EXAM: US ABDOMEN LIMITED, GALLBLADDER CLINICAL INDICATION: [...] 15:52 EST Reading Location ID and State: [facility] / [place] Tel , Service support , CC: SHELL SORTER-C Charlee Humphries; Dr. Marquise Brown DO Main Line Assembler: Signed Normal [facility] Glucose Ql (U)Ordered By: Adithya Brown on 06-09-2024 Urine Glucose (UA) Normal mg/dl Normal [facility] H AND P Exam - Hospitaliston 06-09-2024 H&P Exam - Hospitalist [facility] Medical Records Department [address] [place] [address] H P Exam - Hospitalist 06/09/24 1620 MR#: [id number] Acct: [id number] Name: LING DIAS Rep #: [id number] : 1970 54 From: Kadie Ta MD PCP: NOAH Lim Status:ADM [place] [facility] [id number] HPI - General General Date of Admission: [...] morphine sulfate, ondansetron, 1 L of fluid. [facility] Medical History (Updated 06/09/24 @ 12:06 by [...] 11/21/17 @ 12:03 by Millicent Morris NP, SHELL SORTER-C) Smoking Status: Smoker, status unknown alcohol intake: [...] (Auto) 72.7 H, Lymph % (Auto) 21.4, Kaufman % (Auto) 5.1, Eos % (Auto) 0.0, [...] Clarity Clear, Urine pH 6.0, Ur Specific [place] 1.020, U rine Protein 15 H, Urine Glucose (UA) Normal, Urine Ketones Negative, Urine Occult Blood Negative, Urine Nitrite Ne (more content not included)... Normal [facility] Ketones Test strip Ql (U)Ord ered By: Marquise Brown on 06-09-2024 Ketones Ql (U) Negative Negative [facility] L501.4020on 06-09-2024 TROPONIN-I HS 3 pg/mL Normal 3.0-54.0 [facility] Comment on above: Order Comment: 'TROP ' Serial specimen #1, #2 or #3: 1 Result Comment: Plea se Note: New Test Units and Gender Specific Reference Ranges. For more information see Policy Stat Procedure [place] High Sensitivity Troponin (TNIH) and attachments. Performed By: #### L 500.4050, L501.2450, L100.0100, L501.4020 ####[facility] [address] [place], [address] Lipaseon 06-09-2024 Lipase [Catalytic activity/Vol] 8593 U/L High 13-75 [facility] Comment on above: Order Comment: 'TROP ' Serial specimen #1, #2 or #3: 1 Result Comment: Plea se note: LIPASE revised reference range effective 22. New Lipase methodology. Expected to produce lower values than the previous assay method. NEW Reference Range: 13 - 75 U/L Performed By: #### L 500.4050, L501.2450, L100.0100, L501.4020 ####[facility] [address] [place], [address] Lipase measurementOrdered By : Marquise Brown on 06-09-2024 Lipase [Catalytic activity/Vol] 8593 U/L High 13-75 [facility] Comment on above: Please note:LIPASE r evised reference range effective 22. New Lipase methodology. Expected to produce lower values than the previous assay method. NEW Reference Range: 13 - 75 U/L Microscopic analysis of urin e for red blood cells (RBC)Ordered By: Marquise Brown on 06-09-2024 Urine RBC 0 SEEN /hpf 0-5 [facility] Mucus LM Ql (Urine sed)Order ed By: Marquise GuthriemahendraAdore on 06-09-2024 Mucus Ql (Urine sed) 0 SEEN /hpf [facility] Nitrite Test strip Ql (U)Ord ered By: Marquise BullardLetitiaAdore on 06-09-2024 Nitrite Ql (U) Negative Negative [facility] Protein Test strip Ql (U)Ord ered By: Marquise MoiseakosuaAdore on 06-09-2024 Protein Ql (U) 15 mg/dl High Negative [facility] Troponin IOrdered By: [facility]dra[facility] on 06-09-2024 Troponin I High Sensitivity 3 pg/mL 3.0-54.0 [facility] Comment on above: Please Note: New Nae t Units and Gender Specific Reference Ranges. For more information see Policy Stat Procedure [place] High Sensitivity Troponin (TNIH) and attachments. Urinalysis, Completeon 06-09 EPI,SQUAMOUS 0-5 SEEN Normal 5-10 [facility] Comment on above: Order Comment: CLEAN CATCH Performed By: #### L 400.0001 ####[facility] [address] [place], [address] BACTERIA 0 SEEN Normal None Seen [facility] Comment on above: Order Comment: CLEAN CATCH Performed By: #### L 400.0001 ####[facility] [address] [place], [address] Mucus Ql (Urine sed) 0 SEEN Normal [facility] Comment on above: Order Comment: CLEAN CATCH Performed By: #### L 400.0001 ####[facility] [address] [place], [address] RBC 0 SEEN Normal 0-5 [facility] Comment on above: Order Comment: CLEAN CATCH Performed By: #### L 400.0001 ####[facility] [address] [place], [address] WBC 0 SEEN Normal 0-5 [facility] Comment on above: Order Comment: CLEAN CATCH Performed By: #### L 400.0001 ####[facility] [address] [place], [address] Urine blood detectionOrdered By: Marquise Brown on 06-09-2024 Urine Occult Blood Negative Negative [facility] Urine clarityOrdered By: Jame Brown on 06-09-2024 Clarity (U) Clear Clear [facility] Urine color determinationOrd ered By: Marquise Brown on 06-09-2024 Color (U) Yellow Yellow [facility] Urine leukocyte esterase det ection by dipstickOrdered By: Marquise Brown on 06-09-2024 Leukocyte esterase Test strip Ql (U) 25 /ul High Negative [facility] Urine pHOrdered By: Marquise Pabon on 06-09-2024 pH (U) 6.0 [pH] 5.0 - 8.0 [facility] Urine sediment bacteria coun t by microscopy (number/high power field)Ordered By: Marquise Brown on 06-09-2024 Bacteria LM.HPF (Urine sed) [#/Area] 0 /[HPF] None Seen [facility] Urine specific gravity measu rementOrdered By: Marquise Brown on 06-09-2024 Specific gravity (U) [Rel density] 1.020 1.002-1.030 [facility] Urobilinogen Ql (U)Ordered B y: Marquise Brown on 06-09-2024 Urobilinogen (U) [Mass/Vol] 1 mg/dL High Normal [facility] White blood cell countOrdere d By: Marquise Brown on 06-09-2024 Urine WBC 0 SEEN /hpf 0-5 [facility] Bacteria Ur Culton 4 Bacteria identified [...] , Intermediate >32 , Resistant >64 Abnormal [facility] Comment on above: Performed By: #### 6 30-4 ####[facility] [id number] [facility] [address] [address] [place] CNOVon 05-23-2024 CNOV Office Visit (UCWSTR ) LING DIAS ([id number]) 1970 F Date Time Provider Department 05/23/24 5:00 PM MIN HAMEED [facility] During your visit today, we recorded the following information about you: Temperature Pulse Respiration Blood pressure 97.5 degrees 95/minute 20/minute 140/92 Weight 121.9 kg Min Hameed APRN.PRODUCT LINE MANAGER 05/23/2024 5:01 PM Signed Subjective HPI Nontoxic-appearing [...] Lymphadenopathy: Head: (more content not included)... Normal [facility] UA DIP, URINE (POC)on 2023 BILIRUBIN UA (POCT) Negative Negative [facility] CLARITY UA (POCT) Cloudy [facility] COLOR UA (POCT) Yellow [facility] GLUCOSE UA (POCT) Negative Negative mg/dL [facility] Hemoglobin Ql (U) Small Abnormal Negative [facility] Interpretation and review of laboratory results Abnormal [facility] KETONE UA (POCT) Negative Negative mg/dL [facility] LEUKOCYTES UA (POCT) Moderate Abnormal Negative [facility] NITRITE UA (POCT) Positive Abnormal Negative [facility] PH UA (POCT) 5.5 4.5 - 8.0 [facility] Protein Ql (U) Negative Negative mg/dL [facility] SPECIFIC GRAVITY UA (POCT) 1.025 1 .005 - 1.030 [facility] UROBILINOGEN UA (POCT) 0.2 Kriss l E.U./dL [facility] Location:[address], [place], [address] [facility] POINT OF CARE [facility] 05-04-2024 CNPN Telephone (UCWSTR) LING DIAS ([id number]) 1970 F Date Time Provider Department 05/04/24 [facility] During your visit today, we recorded the following information about you: Maximino Julian MD 05/04/2024 7:11 AM Signed Urine culture did not show a clear infection. Finish antibiotic and follow up with PCP, urology, or RUBBER EXTRUSION MACHINE OPERATOR for recheck. Brooke Griggs MA 05/04/2024 7:24 [...] Status:Closed by BROOKE GRIGGS on 05/04/24 Normal [facility] Bacteria Ur Culton 4 Bacteria identified Cx Nom (U) ORGANISM ID: 1 >=100,000 CFU/ml Mixed microbiota No further workup. Mixed microbiota can be due to???urine???contamin ation with skin bacteria at time of collection or presence of a long-term urinary catheter. If a new culture is needed, please consider re-education of the patient on proper midstream collection technique or straight catheterization for???urine???collect ion. Normal [facility] Comment on above: Performed By: #### 6 30-4 ####[facility] LABCL[facility] [id number] [address] OF [facility] CNOVon 05-02-2024 CNOV Office Visit (UCWSTR ) LING DIAS ([id number]) 1970 F Date Time Provider Department 05/02/24 5:00 PM FABRICIO GARCIA [facility] During your visit today, we recorded the following information about you: Temperature Pulse Respiration Blood pressure 98 degrees 104/minute 16/minute 122/70 Weight 122.2 kg Fabricio Garcia PA 05/02/2024 4:47 PM Signed This note was created using Reflexis Systemsriter. Subjective Ling Dias is a 53 year [...] were answe (more content not included)... Normal [facility] UA DIP, URINE (POC)on 2023 BILIRUBIN UA (POCT) Small Abnormal Negative [facility] CLARITY UA (POCT) Clear [facility] COLOR UA (POCT) Yellow [facility] GLUCOSE UA (POCT) Negative Negative mg/dL [facility] Hemoglobin Ql (U) Small Abnormal Negative [facility] Interpretation and review of laboratory results Abnormal [facility] KETONE UA (POCT) Negative Negative mg/dL [facility] LEUKOCYTES UA (POCT) Small Abnormal Negative [facility] NITRITE UA (POCT) Negative Negative [facility] PH UA (POCT) 5.5 4.5 - 8.0 [facility] Protein Ql (U) Trace Abnormal Negative mg/dL [facility] SPECIFIC GRAVITY UA (POCT) >=1.030 1 .005 - 1.030 [facility] UROBILINOGEN UA (POCT) 0.2 Kriss l E.U./dL [facility] Location:[facility], [address] [place] [address], [place], [address] [facility] POINT OF CARE [facility] CNOVon 03-29-2024 CNOV Office Visit (GENSWS ) LARISSALING ([id number]) 1970 F Date Time Provider Department 03/29/24 10:00 AM [facility] During your visit today, we recorded the following information about you: Temperature Pulse Blood pressure Weight 97 degrees 91/minute 146/94 123.5 kg Height 1.727 m Radha Navarro APRN.PRODUCT LINE MANAGER 03/29/2024 10:45 AM Signed HISTORY AND PHYSICAL Ling Tucker Rameshmarcopiotr : 1970 REFERRING PHYSICIAN: Charlee Humphries, DITCHING MACHINE ENGINEER [address] [facility] [address] CHIEF COMPLAINT: Patient presents with: Consult: Colonoscopy [...] and den (more content not included)... Normal [facility] UA DIP, URINE (POC)on 2023 BILIRUBIN UA (POCT) Negative Negative [facility] CLARITY UA (POCT) Clear [facility] COLOR UA (POCT) Yellow [facility] GLUCOSE UA (POCT) Negative Negative mg/dL [facility] Hemoglobin Ql (U) Large Abnormal Negative [facility] Interpretation and review of laboratory results Abnormal [facility] KETONE UA (POCT) Negative Negative mg/dL [facility] LEUKOCYTES UA (POCT) Small Abnormal Negative [facility] NITRITE UA (POCT) Positive Abnormal Negative [facility] PH UA (POCT) 6.0 4.5 - 8.0 [facility] Protein Ql (U) 30 mg/dL Abnormal Negative [facility] SPECIFIC GRAVITY UA (POCT) 1.020 1 .005 - 1.030 [facility] UROBILINOGEN UA (POCT) 0.2 Kriss l E.U./dL [facility] Location:[address], [place], [address] [facility] POINT OF CARE [facility] MAMMOGRAM SCREENING BILAT ERAL W/TOMOon 09-28-2023 MA MAMMOGRAM SCREENING BILATERAL W/AMINTA ORIGINAL FROM: JUANARLEN [address] [place], [place] [address] PROCEDURE FOR: LING DIAS [address] [place] [address] Home: PID#: [id number] Exam#: [id number] : 1970 Age: 53 TO: CHARLEE HUMPHRIES KILN DOOR BUILDER PRODUCT LINE MANAGER [address] [address] Fax: NO FAX EXAMINATION: SCREENING DIGITAL BILATERAL [...] screening with annual mammograms is recommended. Bria Mir risk calculations, generated with the [...] addition to annual mammographic screening per the [place] [employer]. BIRADS: MAMMOGRAM BI-RADS: 2: Benign finding RECALL: 1 year screening RECALL TYPE: mammo LETTER SENT: Normal BI-RADS 1 and 2 Interpreted by: Lakeisha Hanson Preliminary Report By: Lakeisha Hanson Electronically signed By Lakeisha Hanson Dictated Date: 09/28/2023 6:12:38 AM Prelim Date: 09/28/2023 6:19:28 AM Sign Date: 09/28/2023 6:19:28 AM Ordering Provider: CHARLEE HUMPHRIES Bulb Weeder: SAMANTA MARTINEZ RT(R)(M)(CT) letter sent: Normal BI-RADS 1 and 2 Mammogram BI-RADS: 2 Benign Normal [facility] ([place]) Basophil percentageOrdered B y: Charlee Humphries on 06-08-2023 Bilirubin [Mass/Vol] 0.50 mg/dL 0.20-1.00 [facility] Comment on above: For patients on eltr ombopag therapy, use of Dimension [place] TBIL is not recommended. Chloride [Moles/Vol] 106 mmol/L 98-107 [facility] Cholesterol [Mass/Vol] 190 mg/dL <200 [facility] Comment on above: <200 mg/dL Desirable 200-240 mg/dL Borderline >240 mg/dL High Risk Glucose [Mass/Vol] 91 mg/dL 74-106 [facility] Potassium [Moles/Vol] 3.6 mmol/L 3.5-5.1 [facility] Protein [Mass/Vol] 7.9 g/dL 6.4-8.2 [facility] Sodium [Moles/Vol] 140 mmol/L 136-145 [facility] Triglyceride [Mass/Vol] 151 mg/dL <199 [facility] Comment on above: The drugs N-Acetylcy steine and Metamizole may falsely depress this assay.Serum Triglycerides Reference Interval Normal <150 mg/dL Borderline high 150 - 199 mg/dL High 200 - 499 mg/dL Very High > or = 500 mg/dL WBC (Bld) [#/Vol] 7.1 10*3/uL 4.4-11.0 [facility] Blood erythrocytes count (nu mber/volume)Ordered By: Charlee Humphries on 06-08-2023 RBC (Bld) [#/Vol] 5.14 10*6/uL 4.2-5.4 [facility] Blood hemoglobin measurement (mass/volume)Ordered By: Charlee Humphries on 06-08-2023 Hemoglobin (Bld) [Mass/Vol] 13.4 g/dL 12.0-15.0 [facility] Blood platelet mean volumeOr dered By: Charlee Humphries on 06-08-2023 Platelet mean volume (Bld) [Entitic vol] 9.5 fL 6.2-12.0 [facility] Determination of erythrocyte mean corpuscular volume (MCV)Ordered By: Charlee Humphries on 06-08-2023 MCV (RBC) [Entitic vol] 83.9 fL 81-99 [facility] Hematocrit Auto (Bld) [Volum e fraction]Ordered By: Charlee Humphries on 06-08-2023 Hematocrit (Bld) [Volume fraction] 43.1 % 37-47 [facility] Laboratory - Chemistry and C hemistry - challengeOrdered By: Charlee Humphries on 06-08-2023 ALP [Catalytic activity/Vol] 146 U/L 45-117 [facility] ALT [Catalytic activity/Vol] 48 U/L 13-56 [facility] CO2 [Moles/Vol] 29.0 mmol/L 21.0-32.0 [facility] Free T4 [Mass/Vol] 0.92 ng/dL 0.76-1.46 [facility] Globulin (S) [Mass/Vol] 4.5 g/dL 2.2-4.2 [facility] Urea nitrogen/Creatinine [Mass ratio] 18.7 mg/mg 10-20 [facility] Laboratory - Hematology and Cell countsOrdered By: Charlee Humphries on 06-08-2023 Erythrocyte distribution width (RBC) [Entitic vol] 43.6 fL 35.1-43.9 [facility] Erythrocyte distribution width (RBC) [Ratio] 14.2 % 11.6-14.6 [facility] MCH (RBC) [Entitic mass] 26.1 pg 27.0-32.0 [facility] MCHC Auto (RBC) [Mass/Vol]Or dered By: Charlee Humphries on 06-08-2023 MCHC (RBC) [Mass/Vol] 31.1 g/dL 32-36 [facility] No Panel InformationOrdered By: Charlee Humphries on 06-08-2023 Estimated GFR (MDRD) Amer 78 mL/min >60 [facility] Comment on above: GFR Calc Estimated GFR (MDRD) Non-Af Amer 65 mL/min >60 [facility] Comment on above: Non- GFR Calc Thyroid Stimulating Hormone (TSH) 1.60 uIU/mL 0.358-3.74 [facility] Urine Microalbumin/Creatinine Ratio 6.2 mg/g CRE <30 [facility] Vitamin D 25-Hydroxy 17.0 ng/mL [facility] Comment on above: Vitamin D 25(OH) Sta tus Range Deficiency <20 ng/mL (50nmol/L) Insufficiency 20 - 30 ng/mL (50 - 75 nmol/L) Sufficiency 30 - 100 ng/mL (75 - 250 nmol/L) Toxicity >100 ng/mL (>250 nmol/L) Platelets bldOrdered By: Caden Humphries on 06-08-2023 Platelets (Bld) [#/Vol] 330 10*3/uL 150-450 [facility] Serum or plasma albumin eliel urement (mass/volume)Ordered By: Charlee Humphries on 06-08-2023 Albumin [Mass/Vol] 3.4 g/dL 3.2-5.0 [facility] Serum or plasma albumin/glob ulin mass ratioOrdered By: Charlee Humphries on 06-08-2023 Albumin/Globulin [Mass ratio] 0.8 {ratio} 0.9-2.4 [facility] [facility] Serum or plasma calcium eliel urement (mass/volume)Ordered By: Charlee Humphries on 06-08-2023 Calcium [Mass/Vol] 8.5 mg/dL 8.5-10.1 [facility] Serum or plasma cholesterol in HDL measurement (mass/volume)Ordered By: Charlee Humphries on 06-08-2023 Cholesterol in HDL [Mass/Vol] 38 mg/dL >40 [facility] Comment on above: The drugs N-Acetylcy steine and Metamizole may falsely depress this assay. Reference Range HDL <40 mg/dL Low HDL Cholesterol HDL >or= 60 mg/dL High HDL Cholesterol Serum or plasma cholesterol in VLDL measurement (mass/volume)Ordered By: Charlee Humphries on 06-08-2023 Cholesterol in VLDL [Mass/Vol] 30 mg/dL 5-40 [facility] Serum or plasma creatinine m easurement (mass/volume)Ordered By: Charlee Humphries on 06-08-2023 Creatinine [Mass/Vol] 0.96 mg/dL 0.55-1.02 [facility] Comment on above: The validity of the calculated GFR & GFRAA in patients over 70 years has not been determined. Clinical correlation is essential. Serum or plasma low density lipoprotein (LDL) cholesterol measurement (mass/volume)Ordered By: Charlee Humphries on 06-08-2023 Cholesterol in LDL [Mass/Vol] 122 mg/dL 0-130 [facility] Serum or plasma urea nitroge n measurement (mass/volume)Ordered By: Charlee Humphries on 06-08-2023 Urea nitrogen [Mass/Vol] 18 mg/dL 7-18 [facility] Thin prep Papanicolaou smear with manual screeningOrdered By: Charlee Humphries on 06-08-2023 Thin prep Papanicolaou smear with manual screening 17 U/L 15-37 [facility] Thin prep Papanicolaou smear with manual screening 5 5-15 [facility] Thin prep Papanicolaou smear with manual screening 9.6 mg/L NO RANGE EST. [facility] Urine creatinine measurement (mass/volume)Ordered By: Charlee Humphries on 06-08-2023 Creatinine (U) [Mass/Vol] 156.00 mg/dL NO RANGE EST. [facility] XR Toes - left 3 Viewson IMPRESSION: Mild sof t tissue swelling in the third digit. No acute fracture seen. Main Line Assembler: PSCB Transcribe Date/Time: May 02 2023 11:55A [...] soft tissue swelling. DIVISION OF RADIOLOGY [facility] * * *Final Report* [...] the third digit. No acute fracture seen. Main Line Assembler: PSCB Transcribe Date/Time: May 02 2023 11:55A Dictated by : RODRIGUEZ ATWOOD MD This examination was interpreted and the report reviewed and electronically signed by: RODRIGUEZ ATWOOD MD on May 02 2023 11:57AM EST [facility] Radiology Study observation (narrative) [facility] XR Toes - left 3 ViewsOrdere d By: [facility] Provider on 05-02-2023 [facility] UA DIP, URINE (POC)on 2022 BILIRUBIN UA (POCT) Small Abnormal Negative [facility] CLARITY UA (POCT) Cloudy [facility] COLOR UA (POCT) Red [facility] GLUCOSE UA (POCT) Negative Negative mg/dL [facility] HEMOGLOBIN/BLOOD UA (POCT) Large Abnormal Negative [facility] KETONE UA (POCT) Trace Negative mg/dL [facility] LEUKOCYTES UA (POCT) Large Abnormal Negative [facility] NITRITE UA (POCT) Positive Abnormal Negative [facility] PH UA (POCT) 5.5 4.5 - 8.0 [facility] Protein Ql (U) 100 mg/dL Abnormal Negative mg/dL [facility] SPECIFIC GRAVITY UA (POCT) 1.020 1 .005 - 1.030 [facility] UROBILINOGEN UA (POCT) 1.0 E.U./dL Kriss l E.U./dL [facility] Basophil percentageOrdered B y: Charlee Humphries on 11-29-2022 Bilirubin [Mass/Vol] 0.40 mg/dL 0.20-1.00 [facility] Comment on above: For patients on eltr ombopag therapy, use of Dimension [place] TBIL is not recommended. Chloride [Moles/Vol] 107 mmol/L 98-107 [facility] Cholesterol [Mass/Vol] 170 mg/dL <200 [facility] Comment on above: <200 mg/dL Desirable 200-240 mg/dL Borderline >240 mg/dL High Risk Glucose [Mass/Vol] 96 mg/dL 74-106 [facility] Potassium [Moles/Vol] 4.3 mmol/L 3.5-5.1 [facility] Protein [Mass/Vol] 7.4 g/dL 6.4-8.2 [facility] Sodium [Moles/Vol] 141 mmol/L 136-145 [facility] Triglyceride [Mass/Vol] 77 mg/dL <199 [facility] Comment on above: The drugs N-Acetylcy steine and Metamizole may falsely depress this assay.Serum Triglycerides Reference Interval Normal <150 mg/dL Borderline high 150 - 199 mg/dL High 200 - 499 mg/dL Very High > or = 500 mg/dL WBC (Bld) [#/Vol] 5.7 10*3/uL 4.4-11.0 [facility] Blood erythrocytes count (nu mber/volume)Ordered By: Charlee Humphries on 11-29-2022 RBC (Bld) [#/Vol] 4.95 10*6/uL 4.2-5.4 [facility] Blood hemoglobin measurement (mass/volume)Ordered By: Charlee Humphries on 11-29-2022 Hemoglobin (Bld) [Mass/Vol] 13.3 g/dL 12.0-15.0 [facility] Blood platelet mean volumeOr dered By: Charlee Humphries on 11-29-2022 Platelet mean volume (Bld) [Entitic vol] 9.5 fL 6.2-12.0 [facility] Determination of erythrocyte mean corpuscular volume (MCV)Ordered By: Charlee Humphries on 11-29-2022 MCV (RBC) [Entitic vol] 82.6 fL 81-99 [facility] Hematocrit Auto (Bld) [Volum e fraction]Ordered By: Charlee Humphries on 11-29-2022 Hematocrit (Bld) [Volume fraction] 40.9 % 37-47 [facility] Laboratory - Chemistry and C hemistry - challengeOrdered By: Charlee Humphries on 11-29-2022 ALP [Catalytic activity/Vol] 157 U/L 45-117 [facility] ALT [Catalytic activity/Vol] 22 U/L 13-56 [facility] CO2 [Moles/Vol] 29.0 mmol/L 21.0-32.0 [facility] Free T4 [Mass/Vol] 0.97 ng/dL 0.76-1.46 [facility] Globulin (S) [Mass/Vol] 4.2 g/dL 2.2-4.2 [facility] Urea nitrogen/Creatinine [Mass ratio] 23.2 mg/mg 10-20 [facility] Laboratory - Hematology and Cell countsOrdered By: Charlee Humphries on 11-29-2022 Erythrocyte distribution width (RBC) [Entitic vol] 42.7 fL 35.1-43.9 [facility] Erythrocyte distribution width (RBC) [Ratio] 14.3 % 11.6-14.6 [facility] MCH (RBC) [Entitic mass] 26.9 pg 27.0-32.0 [facility] MCHC Auto (RBC) [Mass/Vol]Or dered By: Charlee Humphries on 11-29-2022 MCHC (RBC) [Mass/Vol] 32.5 g/dL 32-36 [facility] No Panel InformationOrdered By: Charlee Humphries on 11-29-2022 Estimated GFR (MDRD) Amer 89 mL/min >60 [facility] Comment on above: GFR Calc Estimated GFR (MDRD) Non-Af Amer 74 mL/min >60 [facility] Comment on above: Non- GFR Calc Platelets bldOrdered By: Caden Humphries on 11-29-2022 Platelets (Bld) [#/Vol] 259 10*3/uL 150-450 [facility] Serum or plasma albumin eliel urement (mass/volume)Ordered By: Charlee Humphries on 11-29-2022 Albumin [Mass/Vol] 3.2 g/dL 3.2-5.0 [facility] Serum or plasma albumin/glob ulin mass ratioOrdered By: Charlee Humphries on 11-29-2022 Albumin/Globulin [Mass ratio] 0.8 {ratio} 0.9-2.4 [facility] Serum or plasma calcium eliel urement (mass/volume)Ordered By: Charlee Humphries on 11-29-2022 Calcium [Mass/Vol] 8.5 mg/dL 8.5-10.1 [facility] Serum or plasma cholesterol in HDL measurement (mass/volume)Ordered By: Charlee Humphries on 11-29-2022 Cholesterol in HDL [Mass/Vol] 40 mg/dL >40 [facility] Comment on above: The drugs N-Acetylcy steine and Metamizole may falsely depress this assay. Reference Range HDL <40 mg/dL Low HDL Cholesterol HDL >or= 60 mg/dL High HDL Cholesterol Serum or plasma cholesterol in VLDL measurement (mass/volume)Ordered By: Charlee Humphries on 11-29-2022 Cholesterol in VLDL [Mass/Vol] 15 mg/dL 5-40 [facility] Serum or plasma creatinine m easurement (mass/volume)Ordered By: Charlee Humphries on 11-29-2022 Creatinine [Mass/Vol] 0.86 mg/dL 0.55-1.02 [facility] Comment on above: The validity of the calculated GFR & GFRAA in patients over 70 years has not been determined. Clinical correlation is essential. Serum or plasma low density lipoprotein (LDL) cholesterol measurement (mass/volume)Ordered By: Charlee Humphries on 11-29-2022 Cholesterol in LDL [Mass/Vol] 115 mg/dL 0-130 [facility] Serum or plasma urea nitroge n measurement (mass/volume)Ordered By: Charlee Humphries on 11-29-2022 Urea nitrogen [Mass/Vol] 20 mg/dL 7-18 [facility] Thin prep Papanicolaou smear with manual screeningOrdered By: Charlee Humphries on 11-29-2022 Thin prep Papanicolaou smear with manual screening 16 U/L 15-37 [facility] Thin prep Papanicolaou smear with manual screening 5 5-15 [facility] Thin prep Papanicolaou smear with manual screening < 5.0 mg/L NO RANGE EST. [facility] Basophil percentageon 2021 Bilirubin [Mass/Vol] 0.60 mg/dL 0.20-1.00 [facility] Work Phone: Comment on above: For patients on eltr ombopag therapy, use of Dimension [place] TBIL is not recommended. Chloride [Moles/Vol] 107 mmol/L 98-107 [facility] Work Phone: [phone] Cholesterol [Mass/Vol] 196 mg/dL <200 [facility] Work Phone: [phone] Comment on above: <200 mg/dL Desirable 200-240 mg/dL Borderline >240 mg/dL High Risk Glucose [Mass/Vol] 92 mg/dL 74-106 [facility] Work Phone: [phone] Potassium [Moles/Vol] 3.7 mmol/L 3.5-5.1 [facility] Work Phone: [phone] Protein [Mass/Vol] 8.1 g/dL 6.4-8.2 [facility] Work Phone: [phone] Sodium [Moles/Vol] 140 mmol/L 136-145 [facility] Work Phone: [phone] Triglyceride [Mass/Vol] 92 mg/dL <199 [facility] Work Phone: [phone] Comment on above: The drugs N-Acetylcy steine and Metamizole may falsely depress this assay.Serum Triglycerides Reference Interval Normal <150 mg/dL Borderline high 150 - 199 mg/dL High 200 - 499 mg/dL Very High > or = 500 mg/dL WBC (Bld) [#/Vol] 7.7 10*3/uL 4.4-11.0 [facility] Work Phone: [phone] Blood erythrocytes count (nu mber/volume)on 05-17-2022 RBC (Bld) [#/Vol] 5.10 10*6/uL 4.2-5.4 [facility] Work Phone: [phone] Blood hemoglobin measurement (mass/volume)on 05-17-2022 Hemoglobin (Bld) [Mass/Vol] 14.2 g/dL 12.0-15.0 [facility] Work Phone: [phone] Blood platelet mean volumeon 05-17-2022 Platelet mean volume (Bld) [Entitic vol] 9.7 fL 6.2-12.0 [facility] Work Phone: [phone] Determination of erythrocyte mean corpuscular volume (MCV)on 05-17-2022 MCV (RBC) [Entitic vol] 83.9 fL 81-99 [facility] Work Phone: [phone] Hematocrit Auto (Bld) [Volum e fraction]on 05-17-2022 Hematocrit (Bld) [Volume fraction] 42.8 % 37-47 [facility] Work Phone: [phone] Laboratory - Chemistry and C hemistry - challengeon 05-17-2022 ALP [Catalytic activity/Vol] 125 U/L 45-117 [facility] Work Phone: [phone] ALT [Catalytic activity/Vol] 31 U/L 13-56 [facility] Work Phone: [phone] CO2 [Moles/Vol] 26.0 mmol/L 21.0-32.0 [facility] Work Phone: [phone] Free T4 [Mass/Vol] 0.90 ng/dL 0.76-1.46 [facility] Work Phone: [phone] Globulin (S) [Mass/Vol] 4.5 g/dL 2.2-4.2 [facility] Work Phone: [phone] Urea nitrogen/Creatinine [Mass ratio] 21.4 mg/mg 10-20 [facility] Work Phone: [phone] Laboratory - Hematology and Cell countson 05-17-2022 Erythrocyte distribution width (RBC) [Entitic vol] 47.3 fL 35.1-43.9 [facility] Work Phone: [phone] Erythrocyte distribution width (RBC) [Ratio] 15.5 % 11.6-14.6 [facility] Work Phone: [phone] MCH (RBC) [Entitic mass] 27.8 pg 27.0-32.0 [facility] Work Phone: [phone] MCHC Auto (RBC) [Mass/Vol]on 05-17-2022 MCHC (RBC) [Mass/Vol] 33.2 g/dL 32-36 [facility] Work Phone: [phone] No Panel Informationon 05-17 Estimated GFR (MDRD) Amer 86 mL/min >60 [facility] Work Phone: [phone] Comment on above: GFR Calc Estimated GFR (MDRD) Non-Af Amer 71 mL/min >60 [facility] Work Phone: [phone] Comment on above: Non- GFR Calc Thyroid Stimulating Hormone (TSH) 1.78 uIU/mL 0.358-3.74 [facility] Work Phone: [phone] Platelets bldon 05-17-2022 Platelets (Bld) [#/Vol] 269 10*3/uL 150-450 [facility] Work Phone: [phone] Serum or plasma albumin eliel urement (mass/volume)on 05-17-2022 Albumin [Mass/Vol] 3.6 g/dL 3.2-5.0 [facility] Work Phone: [phone] Serum or plasma albumin/glob ulin mass ratioon 05-17-2022 Albumin/Globulin [Mass ratio] 0.8 {ratio} 0.9-2.4 [facility] Work Phone: [phone] Serum or plasma calcium eliel urement (mass/volume)on 05-17-2022 Calcium [Mass/Vol] 9.3 mg/dL 8.5-10.1 [facility] Work Phone: [phone] Serum or plasma cholesterol in HDL measurement (mass/volume)on 05-17-2022 Cholesterol in HDL [Mass/Vol] 48 mg/dL >40 [facility] Work Phone: [phone] Comment on above: The drugs N-Acetylcy steine and Metamizole may falsely depress this assay. Reference Range HDL <40 mg/dL Low HDL Cholesterol HDL >or= 60 mg/dL High HDL Cholesterol Serum or plasma cholesterol in VLDL measurement (mass/volume)on 05-17-2022 Cholesterol in VLDL [Mass/Vol] 18 mg/dL 5-40 [facility] Work Phone: [phone] Serum or plasma creatinine m easurement (mass/volume)on 05-17-2022 Creatinine [Mass/Vol] 0.89 mg/dL 0.55-1.02 [facility] Work Phone: Comment on above: The validity of the calculated GFR & GFRAA in patients over 70 years has not been determined. Clinical correlation is essential. Serum or plasma low density lipoprotein (LDL) cholesterol measurement (mass/volume)on 05-17-2022 Cholesterol in LDL [Mass/Vol] 130 mg/dL 0-130 [facility] Work Phone: [phone] Serum or plasma urea nitroge n measurement (mass/volume)on 05-17-2022 Urea nitrogen [Mass/Vol] 19 mg/dL 7-18 [facility] Work Phone: [phone] Thin prep Papanicolaou smear with manual screeningon 05-17-2022 Thin prep Papanicolaou smear with manual screening 17 U/L 15-37 [facility] Work Phone: [phone] Thin prep Papanicolaou smear with manual screening 7 5-15 [facility] Work Phone: Basophil percentageon 2021 Amylase [Catalytic activity/Vol] 61 U/L 25-115 [facility] Work Phone: [phone] Bilirubin [Mass/Vol] 0.80 mg/dL 0.20-1.00 [facility] Work Phone: [phone] Comment on above: For patients on eltr ombopag therapy, use of Dimension [place] TBIL is not recommended. Chloride [Moles/Vol] 106 mmol/L 98-107 [facility] Work Phone: [phone] Glucose [Mass/Vol] 86 mg/dL 74-106 [facility] Work [facility]: [phone] Potassium [Moles/Vol] 4.0 mmol/L 3.5-5.1 [facility] Work Phone: [phone] Protein [Mass/Vol] 8.0 g/dL 6.4-8.2 [facility] Work Phone: [phone] Sodium [Moles/Vol] 141 mmol/L 136-145 [facility] Work Phone: [phone] WBC (Bld) [#/Vol] 6.1 10*3/uL 4.4-11.0 [facility] Work Phone: [phone] Blood erythrocytes count (nu mber/volume)on 03-22-2022 RBC (Bld) [#/Vol] 5.04 10*6/uL 4.2-5.4 [facility] Work Phone: [phone] Blood hemoglobin measurement (mass/volume)on 03-22-2022 Hemoglobin (Bld) [Mass/Vol] 14.0 g/dL 12.0-15.0 [facility] Work Phone: [phone] Blood platelet mean volumeon 03-22-2022 Platelet mean volume (Bld) [Entitic vol] 10.6 fL 6.2-12.0 [facility] Work Phone: [phone] Determination of erythrocyte mean corpuscular volume (MCV)on 03-22-2022 MCV (RBC) [Entitic vol] 84.5 fL 81-99 [facility] Work Phone: [phone] Hematocrit Auto (Bld) [Volum e fraction]on 03-22-2022 Hematocrit (Bld) [Volume fraction] 42.6 % 37-47 [facility] Work Phone: [phone] Laboratory - Chemistry and C hemistry - challengeon 03-22-2022 ALP [Catalytic activity/Vol] 105 U/L 45-117 [facility] Work Phone: [phone] ALT [Catalytic activity/Vol] 21 U/L 13-56 [facility] Work Phone: CO2 [Moles/Vol] 28.0 mmol/L 21.0-32.0 [facility] Work Phone: Globulin (S) [Mass/Vol] 4.2 g/dL 2.2-4.2 [facility] Work Phone: Lipase [Catalytic activity/Vol] 164 U/L 73-393 [facility] Work Phone: Urea nitrogen/Creatinine [Mass ratio] 21.0 mg/mg 10-20 [facility] Work Phone: Laboratory - Hematology and Cell countson 03-22-2022 Erythrocyte distribution width (RBC) [Entitic vol] 45.5 fL 35.1-43.9 [facility] Work Phone: Erythrocyte distribution width (RBC) [Ratio] 15.0 % 11.6-14.6 [facility] Work Phone: MCH (RBC) [Entitic mass] 27.8 pg 27.0-32.0 [facility] Work Phone: MCHC Auto (RBC) [Mass/Vol]on 03-22-2022 MCHC (RBC) [Mass/Vol] 32.9 g/dL 32-36 [facility] Work Phone: No Panel Informationon 03-22 Estimated GFR (MDRD) Amer 75 mL/min >60 [facility] Work Phone: Comment on above: GFR Calc Estimated GFR (MDRD) Non-Af Amer 62 mL/min >60 [facility] Work Phone: Comment on above: Non- GFR Calc Platelets bldon 03-22-2022 Platelets (Bld) [#/Vol] 306 10*3/uL 150-450 [facility] Work Phone: Serum or plasma albumin eliel urement (mass/volume)on 03-22-2022 Albumin [Mass/Vol] 3.8 g/dL 3.2-5.0 [facility] Work Phone: Serum or plasma albumin/glob ulin mass ratioon 03-22-2022 Albumin/Globulin [Mass ratio] 0.9 {ratio} 0.9-2.4 [facility] Work Phone: Serum or plasma calcium eliel urement (mass/volume)on 03-22-2022 Calcium [Mass/Vol] 9.3 mg/dL 8.5-10.1 [facility] Work Phone: Serum or plasma creatinine m easurement (mass/volume)on 03-22-2022 Creatinine [Mass/Vol] 1.00 mg/dL 0.55-1.02 [facility] Work Phone: Comment on above: The validity of the calculated GFR & GFRAA in patients over 70 years has not been determined. Clinical correlation is essential. Serum or plasma urea nitroge n measurement (mass/volume)on 03-22-2022 Urea nitrogen [Mass/Vol] 21 mg/dL 7-18 [facility] Work Phone: Thin prep Papanicolaou smear with manual screeningon 03-22-2022 Thin prep Papanicolaou smear with manual screening 12 U/L 15-37 [facility] Work Phone: Thin prep Papanicolaou smear with manual screening 7 5-15 [facility] Work Phone: EMERGENCY REPORTon 2 EMERGENCY REPORT [facility] EM[facility]GENCY RO[facility] REPORT NAME ACCOUNT SEX AGE ADMIT DISCHARGE PT MED. RECORD# NUMBER DATE DATE TYPE LARISSA [id number] F 51 02/25/22 02/26/22 1 LING Tucker [id number] ROOM: [facility] DATE OF : 1970 DICTATING PHYSICIAN: Ricardo Yao ADDENDUM: I did discuss with Dr. Luis, who admitted the patient. He wanted me to contact Dr. Hall, which I did so. Dr. Hall came down to the department. We talked about the patient, discussed the patient, and he will see her on the floor. Dictated By: Ricardo Yao DO 02/25/22 13:29 JOB #: [id number] Transcribed By: am 02/27/22 06:26 Electronically signed by: MARSHALL Yao DO 02/28/22 08:16 Page 1 of 1 [facility] Emergency Room Report Normal [facility] EMERGENCY REPORT [facility] EMERGENCY ROOM REPORT NAME ACCOUNT SEX AGE ADMIT DISCHARGE PT MED. RECORD# NUMBER DATE DATE TYPE LARISSA [id number] F 51 02/25/22 02/26/22 1 LING Tucker [id number] ROOM: 305 DATE OF : 1970 DICTATING [...] Ricardo Yao DO 02/25/22 13:29 JOB #: [id number] Page 1 of 2 [facility] Emergency Room Report LING DIAS : 1970 Transcribed By: am 02/27/22 06:21 Electronically signed by: MARSHALL Yao DO 02/28/22 08:16 Page 2 of 2 [facility] Emergency Room Report Normal [facility] CBC + DIFFon 02-26-2022 Baso # 0.00 x10EE3/UL Normal 0.00 - 0.10 [facility] Comment on above: Performed By: #### 2 [id number] #### [facility],[address] [place] [address]146 Basophils/100 WBC (Bld) 0.3 % Normal 0.0 - 2.0 [facility] Comment on above: Performed By: #### 2 [id number] #### [facility],[address] [place] [address] 69410 CBC + DIFF Normal [facility] Comment on above: Result Comment: CBC- COMPLETE BLOOD COUNT Performed By: #### 2 [id number] #### [facility],[address] [place] [address] 79432 EO # 0.00 x10EE3/UL Normal 0.00 - 0.50 [facility] Comment on above: Performed By: #### 2 [id number] #### [facility],[address] [place] [address] 63147 Eosinophils/100 WBC (Bld) 0.0 % Normal 0.0 - 7.0 [facility] Comment on above: Performed By: #### 2 [id number] #### [facility],[address] [place] [address] 47107 Erythrocyte distribution width (RBC) [Ratio] 14.5 % Normal 12.0 - 15.6 [facility] Comment on above: Performed By: #### 2 [id number] #### [facility],[address] [place] [address] 56841 Hematocrit (Bld) [Volume fraction] 37.6 % Normal 34.0 - 46.0 [facility] Comment on above: Performed By: #### 2 54057 #### [facility],[address] [place] [address] Hemoglobin (Bld) [Mass/Vol] 12.3 g/dL Normal 12.0 - 16.0 [facility] Comment on above: Performed By: #### 2 [id number] #### [facility],[address] [place] [address] Lymph # 1.10 x10EE3/UL Normal 0.80 - 2.80 [facility] Comment on above: Performed By: #### 2 [id number] #### [facility],[address] [place] [address] Lymphocytes/100 WBC (Bld) 23.9 % Normal 20.0 - 45. 0 [facility] Comment on above: Performed By: #### 2 [id number] #### [facility],[address] [place] [address] MANUAL DIFF N/A Normal [facility] Comment on above: Performed By: #### 2 [id number] #### [place] [address] MCH (RBC) [Entitic mass] 27 pg Normal 27 - 33 [facility] Comment on above: Performed By: #### 2 [id number] #### [place] [address] MCHC 33 X10 3 Normal 32 - 36 [facility] Comment on above: Performed By: #### 2 10042 #### [facility],[address] [place], [place] [id number] MCV (RBC) [Entitic vol] 81 fL Normal 80 - 99 [facility] Comment on above: Performed By: #### 2 21072 #### [place] [address] [place]man # 0.20 x10EE3/UL Normal 0.20 - 1.00 [facility] Comment on above: Performed By: #### 2 21203 #### [facility],[address] [place] [address] MONOS % 5.2 % Normal 0.0 - 10.0 [facility] Comment on above: Performed By: #### 2 22406 #### [facility],[address] [place] [address] Morphology Chilo (Bld) [Interp] N/A Normal [facility] Comment on above: Result Comment: {CD] Performed By: #### 2 [id number] #### [facility],[address] [place] [address] Neut # 3.20 x10EE3/UL Normal 1.50 - 7.10 [facility] Comment on above: Performed By: #### 2 83369 #### [place] [address] Neutrophils/100 WBC (Bld) 70.6 % Normal 46.0 - 76. 0 [facility] Comment on above: Performed By: #### 2 26588 #### [place] [address] PLATELET 218 x10EE3/UL Normal 150 - 450 [facility] Comment on above: Performed By: #### 2 92315 #### [place] [address] Platelet mean volume (Bld) [Entitic vol] 8.4 fL Normal 6.6 - 10.5 [facility] Comment on above: Result Comment: AUTO MATED DIFFERENTIAL Performed By: #### 2 23113 #### [place] [address] RBC 4.63 x 10EE6/UL Normal 4.10 - 5.30 [facility] Comment on above: Performed By: #### 2 92037 #### [place] [address] WBC 4.5 x 10EE3/UL Normal 4.5 - 10.8 [facility] Comment on above: Performed By: #### 2 61616 #### [facility],[address] [place], [place] [id number] CMP with eGFRon 02-26-2022 AGE 51 years Normal [facility] Comment on above: Performed By: #### 2 91214 #### [facility],[address] [place] [address] Albumin [Mass/Vol] 3.0 g/dL Low 3.4 - 5.0 [facility] Comment on above: Performed By: #### 2 81810 #### [facility],[address] [place] [address] Albumin/Globulin [Mass ratio] 0.9 {ratio} Normal 0.9 - 1.6 [facility] Comment on above: Performed By: #### 2 45102 #### [facility],[address] [place] [address]88[address] ALK PHOS 116 U/L Normal 46 - 116 [facility] Comment on above: Performed By: #### 2 47719 #### [facility],[address] [place] [address] 31791 ALT [Catalytic activity/Vol] 63 U/L High 14 - 59 [facility] Comment on above: Performed By: #### 2 21390 #### [facility],[address] [place] [address] 42566 Anion gap [Moles/Vol] 11 mmol/L Normal 10 - 20 [facility] Comment on above: Performed By: #### 2 80058 #### [facility],[address] [place] [address] 00135 AST [Catalytic activity/Vol] 47 U/L High 13 - 39 [facility] Comment on above: Performed By: #### 2 58921 #### [facility],[address] [place] [address] 55942 B/C RATIO 11 ratio Normal 0 - 30 [facility] Comment on above: Performed By: #### 2 76127 #### [facility],[address] [place], [place] [phone] Bilirubin [Mass/Vol] 0.7 mg/dL Normal 0.2 - 1.0 [facility] Comment on above: Performed By: #### 2 63784 #### [facility],[address] [place] [address] Calcium [Mass/Vol] 8.4 mg/dL Low 8.5 - 10.1 [facility] Comment on above: Performed By: #### 2 27239 #### [facility],[address] [place] [address] Chloride [Moles/Vol] 107 mmol/L Normal 98 - 107 [facility] Comment on above: Performed By: #### 2 06341 #### [facility],[address] [place] [address] CMP with eGFR Normal [facility] Comment on above: Result Comment: COMP REHENSIVE METABOLIC PANEL Performed By: #### 2 89324 #### [facility],[address] [place], [place] [phone] CO2 [Moles/Vol] 29.2 mmol/L Normal 21.0 - 32.0 [facility] Comment on above: Performed By: #### 2 14986 #### [facility],[address] [place], [place] [phone] Creatinine [Mass/Vol] 0.90 mg/dL Normal 0.55 - 1.02 [facility] Comment on above: Performed By: #### 2 49789 #### [place] [id number] GFR/1.73 sq M.predicted among non-blacks MDRD (S/P/Bld) [Vol rate/Area] mL/min/{1.73_m2} Normal 60 - 999 [facility] Comment on above: Performed By: #### 2 74818 #### [facility],[address] [place] [address] Result Comment: ACCO RDING TO THE NATIONAL KIDNEY DISEASE EDUCATION PROGRAM(NKDE), A NORMAL eGFR IS A VALUE GREATER THAN OR EQUAL TO 60 ML/MIN/1.73 SQ METERS. CHRONIC KIDNEY DISEASE: <60mL/MIN/1.73 SQ METERS KIDNEY FAILURE: <15mL/MIN/1.73 SQ METERS THIS TEST SHOULD ONLY BE USED FOR PATIENTS 18 YEARS OF AGE AND OLDER. Globulin (S) [Mass/Vol] 3.5 g/dL Normal 1.5 - 3.8 [facility] Comment on above: Performed By: #### 2 52666 #### [place] [address] Glucose [Mass/Vol] 88 mg/dL Normal 74 - 106 [facility] Comment on above: Performed By: #### 2 71166 #### [place] [phone] Potassium [Moles/Vol] 3.2 mmol/L Low 3.5 - 5.1 [facility] Comment on above: Performed By: #### 2 54688 #### [address] [address] Protein [Mass/Vol] 6.5 g/dL Normal 6.4 - 8.2 [facility] Comment on above: Performed By: #### 2 33030 #### [address] [address] Sodium [Moles/Vol] 144 mmol/L Normal 136 - 145 [facility] Comment on above: Performed By: #### 2 44362 #### [address] [address] Urea nitrogen [Mass/Vol] 10 mg/dL Normal 7 - 18 [facility] Comment on above: Performed By: #### 2 06672 #### [address] [address] LIPASEon 02-26-2022 Lipase [Catalytic activity/Vol] 1708.0 U/L High 73.0 - 393 [facility] Comment on above: Performed By: #### 2 61643 #### [facility],[address] [place] [address] 45737 CBC + DIFFon 02-25-2022 Baso # 0.00 x10EE3/UL Normal 0.00 - 0.10 [facility] Comment on above: Performed By: #### 2 64344 #### [facility],[address] [place] [address] 21394 Basophils/100 WBC (Bld) 0.2 % Normal 0.0 - 2.0 [facility] Comment on above: Performed By: #### 2 57544 #### [facility],[address] [place] [address] CBC + DIFF Normal [facility] Comment on above: Result Comment: CBC- COMPLETE BLOOD COUNT Performed By: #### 2 07784 #### [facility],[address] [place] [address] 20218 EO # 0.00 x10EE3/UL Normal 0.00 - 0.50 [facility] Comment on above: Performed By: #### 2 57615 #### [facility],[address] [place] [address] 80216 Eosinophils/100 WBC (Bld) 0.0 % Normal 0.0 - 7.0 [facility] Comment on above: Performed By: #### 2 42259 #### [facility],[address] [place] [address] 66670 Erythrocyte distribution width (RBC) [Ratio] 14.5 % Normal 12.0 - 15.6 [facility] Comment on above: Performed By: #### 2 30282 #### [facility],[address] [place] [address] 87976 Hematocrit (Bld) [Volume fraction] 41.4 % Normal 34.0 - 46.0 [facility] Comment on above: Performed By: #### 2 51411 #### [facility],[address] [place] [address] Hemoglobin (Bld) [Mass/Vol] 13.5 g/dL Normal 12.0 - 16.0 [facility] Comment on above: Performed By: #### 2 21658 #### [facility],[address] [place] [address] Lymph # 1.30 x10EE3/UL Normal 0.80 - 2.80 [facility] Comment on above: Performed By: #### 2 54126 #### [facility],[address] [place] [address] Lymphocytes/100 WBC (Bld) 10.7 % Low 20.0 - 45. 0 [facility] Comment on above: Performed By: #### 2 71324 #### [facility],[address] [place] [address] MANUAL DIFF N/A Normal [facility] Comment on above: Performed By: #### 2 25844 #### [facility],[address] [place] [address] MCH (RBC) [Entitic mass] 26 pg Low 27 - 33 [facility] Comment on above: Performed By: #### 2 33554 #### [facility],[address] [place], [place] [phone] MCHC 33 X10 3 Normal 32 - 36 [facility] Comment on above: Performed By: #### 2 93981 #### [facility],[address] [place] [address] 67619 MCV (RBC) [Entitic vol] 80 fL Normal 80 - 99 [facility] Comment on above: Performed By: #### 2 46337 #### [facility],[address] [place] [address] Kaufman # 0.60 x10EE3/UL Normal 0.20 - 1.00 [facility] Comment on above: Performed By: #### 2 89428 #### [facility],[address] [place] [address] 43402 MONOS % 4.8 % Normal 0.0 - 10.0 [facility] Comment on above: Performed By: #### 2 74247 #### [facility],[address] [place] [address] Morphology Chilo (Bld) [Interp] N/A Normal [facility] Comment on above: Result Comment: {CD] Performed By: #### 2 04778 #### [facility],[address] [place] [address] 01664 Neut # 10.10 x10EE3/UL High 1.50 - 7.10 [facility] Comment on above: Performed By: #### 2 83221 #### [address] [address] Neutrophils/100 WBC (Bld) 84.3 % High 46.0 - 76. 0 [facility] Comment on above: Performed By: #### 2 23073 #### [facility],[address] [place] [address] PLATELET 262 x10EE3/UL Normal 150 - 450 [facility] Comment on above: Performed By: #### 2 02734 #### [facility],[address] [place] [address] 55533 Platelet mean volume (Bld) [Entitic vol] 8.1 fL Normal 6.6 - 10.5 [facility] Comment on above: Result Comment: AUTO MATED DIFFERENTIAL Performed By: #### 2 84934 #### [address] [address] RBC 5.16 x 10EE6/UL Normal 4.10 - 5.30 [facility] Comment on above: Performed By: #### 2 93660 #### [facility],[address] [place] [address] WBC 12.0 x 10EE3/UL High 4.5 - 10.8 [facility] Comment on above: Performed By: #### 2 26927 #### [facility],[address] [place] [address] CMP with eGFRon 02-25-2022 AGE 51 years Normal [facility] Comment on above: Performed By: #### 2 97546 #### [facility],[address] [place] [address]603 Albumin [Mass/Vol] 3.7 g/dL Normal 3.4 - 5.0 [facility] Comment on above: Performed By: #### 2 82237 #### [facility],[address] [place] [address] Albumin/Globulin [Mass ratio] 0.9 {ratio} Normal 0.9 - 1.6 [facility] Comment on above: Performed By: #### 2 67295 #### [facility],[address] [place] [address] 11710 ALK PHOS 124 U/L High 46 - 116 [facility] Comment on above: Performed By: #### 2 32863 #### [facility],[address] [place] [address] 59618 ALT [Catalytic activity/Vol] 42 U/L Normal 14 - 59 [facility] Comment on above: Performed By: #### 2 58765 #### [facility],[address] [place] [address] 73546 Anion gap [Moles/Vol] 10 mmol/L Normal 10 - 20 [facility] Comment on above: Performed By: #### 2 54304 #### [address] [address] AST [Catalytic activity/Vol] 60 U/L High 13 - 39 [facility] Comment on above: Performed By: #### 2 02969 #### [facility],[address] [place] [address] 84900 B/C RATIO 12 ratio Normal 0 - 30 [facility] Comment on above: Performed By: #### 2 13316 #### [facility],[address] [place], [place] [phone] Bilirubin [Mass/Vol] 0.7 mg/dL Normal 0.2 - 1.0 [facility] Comment on above: Performed By: #### 2 86421 #### [facility],[address] [place] [address] Calcium [Mass/Vol] 8.9 mg/dL Normal 8.5 - 10.1 [facility] Comment on above: Performed By: #### 2 32696 #### [facility],[address] [place] [address] Chloride [Moles/Vol] 104 mmol/L Normal 98 - 107 [facility] Comment on above: Performed By: #### 2 00894 #### [facility],[address] [place] [address] CMP with eGFR Normal [facility] Comment on above: Result Comment: COMP REHENSIVE METABOLIC PANEL Performed By: #### 2 80402 #### [facility],[address] [place] [address] CO2 [Moles/Vol] 29.7 mmol/L Normal 21.0 - 32.0 [facility] Comment on above: Performed By: #### 2 23021 #### [facility],[address] [place] [address] Creatinine [Mass/Vol] 1.06 mg/dL High 0.55 - 1.02 [facility] Comment on above: Performed By: #### 2 85712 #### [facility],[address] [place] [address] eGFR 55 ML/MINUTE Low 60 - 999 [facility] Comment on above: Performed By: #### 2 97787 #### [facility],[address],[place] [address] GFR/1.73 sq M.predicted among non-blacks MDRD (S/P/Bld) [Vol rate/Area] mL/min/{1.73_m2} Normal 60 - 999 [facility] Comment on above: Result Comment: ACCO RDING TO THE NATIONAL KIDNEY DISEASE EDUCATION PROGRAM(NKDE), A NORMAL eGFR IS A VALUE GREATER THAN OR EQUAL TO 60 ML/MIN/1.73 SQ METERS. CHRONIC KIDNEY DISEASE: <60mL/MIN/1.73 SQ METERS KIDNEY FAILURE: <15mL/MIN/1.73 SQ METERS THIS TEST SHOULD ONLY BE USED FOR PATIENTS 18 YEARS OF AGE AND OLDER. Performed By: #### 2 49231 #### [address] [address] Globulin (S) [Mass/Vol] 4.2 g/dL High 1.5 - 3.8 [facility] Comment on above: Performed By: #### 2 24038 #### [address] [address] Glucose [Mass/Vol] 109 mg/dL High 74 - 106 [facility] Comment on above: Performed By: #### 2 31088 #### [address] [address] Potassium [Moles/Vol] 3.2 mmol/L Low 3.5 - 5.1 [facility] Comment on above: Performed By: #### 2 67505 #### [facility],[address] [place] [address] Protein [Mass/Vol] 7.9 g/dL Normal 6.4 - 8.2 [facility] Comment on above: Performed By: #### 2 01356 #### [facility],[address] [place] [address] Sodium [Moles/Vol] 140 mmol/L Normal 136 - 145 [facility] Comment on above: Performed By: #### 2 84265 #### [facility],[address] [place] [address]12 Urea nitrogen [Mass/Vol] 13 mg/dL Normal 7 - 18 [facility] Comment on above: Performed By: #### 2 72942 #### [facility],[address] [place] [address] CORONAVIRUS PCR - [facility] 02-25-2022 SARS-CoV-2 (COVID-19) RNA TAYLOR+probe Ql (Unsp spec) Negative Normal NORMAL: NEGATIVE [facility] Comment on above: Performed By: #### 2 19473 #### [facility],[address] [place] [address] SEND TO IC? YES Normal [facility] Comment on above: Result Comment: RESU LTS FAXED TO INFECTION CONTROL. SARS-CoV-2 THIS TEST IS BEING USED UNDER THE FDA EUA PROCEDURE. THIS ASSAY HAS BEEN VALIDATED IN THE [facility] FOR USE WITH NASOPHARYNGEAL SPECIMENS IN [facility]. INTERPRETIVE DATA LABORATORY TEST RESULTS SHOULD ALWAYS [...] PUBLIC HEALTH AUTHORITIES. Performed By: #### 2 46686 #### [facility],[address] [facility] [address] [address] ABDOMEN/PELVIS Won 2021 CT ABDOMEN/PELVIS [address] [address] Patient: LING DIAS Phone#: : 1970 Age: 51 Gender: F Pt. Type: ER Account: [id number] Location: 052 Ordering: RICARDO YAO Exam Date: 02/25/2022/11:41 Family Phys: CHARLEE HUMPHRIES Charge Code: [id number] Physician: [place] Order #: [id number] DLP Dose#: 37.0 mGy PROCEDURE: CT ABDOMEN/PELVIS [...] 51 Gender: F Pt. Type: ER Account: [id number] Location: 052 Ordering: [facility] Exam Date: 02/25/2022/11:41 Family Phys: CHARLEE HUMPHRIES Charge Code: [id number] Physician: [place] Order #: [id number] DLP Dose#: 37.0 mGy PELVIC ORGANS: Essure [...] Ware MD on 02/25/2022 at 12:16 Normal [facility] LIPASEon 02-25-2022 Lipase [Catalytic activity/Vol] 52572.0 U/L High 73.0 - 393 [facility] Comment on above: Performed By: #### 2 41265 #### [facility],[address] [place] [address] US RUQ (GB/PANCREAS)on 02-25 US RUQ (GB/PANCREAS) [place] [id number] Patient: LING DIAS Phone#: : 1970 Age: 51 Gender: F Pt. Type: ER Account: [id number] Location: 052 Ordering: [facility] Exam Date: 02/25/2022/11:01 Family Phys: Charge Code: [id number] Physician: [place] Order #: [id number] DLP Dose#: PROCEDURE: RUQ (GB) ULTRASOUND COMPARISON: [...] JAVED MD ON 02/25/2022 AT 11:39 Normal [facility] Vital Signs Date Time Vital Sign Value Performing Clinician Facility 02-26-2025 08:57-0400 Body mass index (BMI) [Ratio] 40.9 kg/m2 Mai Brandt [employer] MANAGER Work Phone: [facility] 02-26-2025 08:57-0400 Body temperature 97.3 [degF] Mai Brandt [employer] DOOR BUILDER.[employer]ODUCT [employer] MANAGER Work Phone: [facility] 02-26-2025 08:57-0400 Body weight 122 kg Mai Brandt [employer] BUIL[employer]ODUCT [employer] MANAGER Work Phone: [facility] 02-26-2025 08:57-0400 Diastolic blood pressure 81 mm[Hg] Mai Brandt [employer] DOOR BUILDER.[employer]ODUCT LINE MANAGER Work Phone: [facility] 02-26-2025 08:57-0400 Heart rate 94 /min Mai Brandt [employer] DO[employer] BUILDER.[employer]ODUCT LINE MANAGER Work Phone: [facility] 02-26-2025 08:57-0400 Respiratory rate 22 /min Mai Brandt [employer] DOOR BUILDER.PRODUCT LINE MANAGER Work Phone: [facility] 02-26-2025 08:57-0400 SaO2% (BldA) [Mass fraction] 97 % Mainery Brandt [employer] DOOR BUILDER.PRODUCT LINE MANAGER Work Phone: [facility] 02-26-2025 08:57-0400 Systolic blood pressure 136 mm[Hg] Mai Brandt [employer] DO[employer] BUILDER.PRODUCT [employer] MANAGER Work Phone: [facility] 08-17-2024 07:23-0500 Body mass index (BMI) [Ratio] 40.39 kg/m2 Millicent Clutter PA-C Work Phone: [facility] 08-17-2024 07:23-0500 Body temperature 97.81 [degF] Millicent Clutter PA-C Work Phone: [facility] 08-17-2024 07:23-0500 Body weight 120.5 kg Millicent Clutter PA-C Work Phone: [facility] 08-17-2024 07:23-0500 Diastolic blood pressure 80 mm[Hg] Millicent Clutter PA-C Work Phone: [facility] 08-17-2024 07:23-0500 Heart rate 90 /min Millicent Clutter PA-C Work Phone: [facility] 08-17-2024 07:23-0500 Respiratory rate 18 /min Millicent Clutter PA-C Work Phone: [facility] 08-17-2024 07:23-0500 SaO2% (BldA) [Mass fraction] 99 % Millicent Clutter PA-C Work Phone: [facility] 08-17-2024 07:23-0500 Systolic blood pressure 132 mm[Hg] Millicent Clutter PA-C Work Phone: [facility] 06-24-2024 13:15-0500 Heart rate 83 /min Fredo Finelli DO Work Phone: [facility] 06-24-2024 13:15-0500 Respiratory rate 18 /min Fredo Finelli DO Work Phone: [facility] 06-24-2024 13:00-0500 Diastolic blood pressure 57 mm[Hg] Fredo Finelli DO Work Phone: [facility] 06-24-2024 13:00-0500 SaO2% (BldA) [Mass fraction] 100 % Fredo Finelli DO Work Phone: [facility] 06-24-2024 13:00-0500 Systolic blood pressure 115 mm[Hg] Fredo Finelli DO Work Phone: [facility] 06-24-2024 12:45-0500 Body temperature 97 [degF] Fredo Finelli DO Work Phone: [facility] 06-24-2024 10:27-0500 Body height 172.7 cm Fredo Finelli DO Work Phone: [facility] 06-24-2024 10:27-0500 Body mass index (BMI) [Ratio] 37.71 kg/m2 Fredo Finelli DO Work Phone: [facility] 06-24-2024 10:27-0500 Body weight 112.49 kg Fredo Finelli DO Work Phone: [facility] 06-11-2024 13:27-0500 Body temperature 98.2 [degF] Charlee Humphries SHELL SORTER-C Work Phone: [facility] 06-11-2024 13:27-0500 Diastolic blood pressure 82 mm[Hg] Charlee Humphries SHELL SORTER-C Work Phone: [facility] 06-11-2024 13:27-0500 Heart rate 92 /min Charlee Humphries SHELL SORTER-C Work Phone: [facility] 06-11-2024 13:27-0500 Respiratory rate 16 /min Charlee Humphries SHELL SORTER-C Work Phone: [facility] 06-11-2024 13:27-0500 SaO2% (BldA) [Mass fraction] 96 % Charlee Humphries SHELL SORTER-C Work Phone: [facility] 06-11-2024 13:27-0500 Systolic blood pressure 142 mm[Hg] Charlee Humphries SHELL SORTER-C Work Phone: [facility] 06-11-2024 10:31-0500 Body height 172.72 cm Charlee Humphries SHELL SORTER-C Work Phone: [facility] 06-11-2024 10:31-0500 Body weight 120.4 kg Charlee Humphries SHELL S[employer]TER-C Work Phone: [facility] 06-09-2024 17:33-0500 Body mass index (BMI) [Ratio] 40.4 kg/m2 Charlee Hupmhries SHELL SORTER-C Work Phone: [facility] 05-23-2024 16:48-0500 Body mass index (BMI) [Ratio] 40.86 kg/m2 Min Hameed [employer] DOOR BUILDER.[employer] MANAGER Work Phone: [facility] 05-23-2024 16:48-0500 Body temperature 97.5 [degF] Min Toribioomar [employer]N DOOR BUILDER.PRODUCT LINE MANAGER Work Phone: [facility] 05-23-2024 16:48-0500 Body weight 121.9 kg Min Hameed [employer] DOOR BUILDER.PRODUCT LINE MANAGER Work Phone: [facility] 05-23-2024 16:48-0500 Diastolic blood pressure 92 mm[Hg] Min Hameed [employer] DOOR BUILDER.PRODUCT LINE MANAGER Work Phone: [facility] 05-23-2024 16:48-0500 Heart rate 95 /min Min Hameed KILN DOOR BUILDER.PRODUCT LINE MANAGER Work Phone: [facility] 05-23-2024 16:48-0500 Respiratory rate 20 /min Min Hameed KILN DOOR BUILDER.PRODUCT LINE MANAGER Work Phone: [facility] 05-23-2024 16:48-0500 SaO2% (BldA) [Mass fraction] 98 % Min Hameed [employer]IL[employer] DOOR BUILDER.PRODUCT LINE MANAGER Work Phone: [facility] 05-23-2024 16:48-0500 Systolic blood pressure 140 mm[Hg] Min Hameed [employer]ILN DOOR BUILDER.PRODUCT LINE MANAGER Work Phone: [facility] 05-02-2024 16:38-0400 Body mass index (BMI) [Ratio] 40.96 kg/m2 Fabricio HENDRIX Work Phone: [facility] 05-02-2024 16:38-0400 Body temperature 98.01 [degF] Krislyn Aberegg PA Work Phone: [facility] 05-02-2024 16:38-0400 Body weight 122.2 kg Krislyn Aberegg PA Work Phone: [facility] 05-02-2024 16:38-0400 Diastolic blood pressure 70 mm[Hg] Krislyn Aberegg PA Work Phone: [facility] 05-02-2024 16:38-0400 Heart rate 104 /min Krislyn Aberegg PA Work Phone: [facility] 05-02-2024 16:38-0400 Respiratory rate 16 /min Krislyn Aberegg PA Work Phone: [facility] 05-02-2024 16:38-0400 SaO2% (BldA) [Mass fraction] 98 % Krislyn Aberegg PA Work Phone: [facility] 05-02-2024 16:38-0400 Systolic blood pressure 122 mm[Hg] Krislyn Aberegg PA Work Phone: [facility] 03-29-2024 10:11-0400 Body height 172.7 cm Radha Jr [employer] DOOR BUILDER.PRODUCT [employer] MANAGER Work Phone: [facility] 03-29-2024 10:11-0400 Body mass index (BMI) [Ratio] 41.39 kg/m2 Radha Jr KILN DOOR BUILDER.PRODUCT LINE MANAGER Work Phone: [facility] 03-29-2024 10:11-0400 Body temperature 97 [degF] Radha Jr KILN DOOR BUILDER.PRODUCT LINE MANAGER Work Phone: [facility] 03-29-2024 10:11-0400 Body weight 123.47 kg Radha Jr KILN DOOR BUILDER.PRODUCT LINE MANAGER Work Phone: [facility] 03-29-2024 10:11-0400 Diastolic blood pressure 94 mm[Hg] Radha Jr KILN DOOR BUILDER.PRODUCT LINE MANAGER Work Phone: [facility] 03-29-2024 10:11-0400 Heart rate 91 /min Radha Navarro APRN.PRODUCT LINE MANAGER Work Phone: [facility] 03-29-2024 10:11-0400 SaO2% (BldA) [Mass fraction] 98 % Radha Navarro APRN.PRODUCT LINE MANAGER Work Phone: [facility] 03-29-2024 10:11-0400 Systolic blood pressure 146 mm[Hg] Radha Navarro KILN DOOR BUILDER.PRODUCT LINE MANAGER Work Phone: [facility] 11-22-2023 08:09-0400 Body mass index (BMI) [Ratio] 41.36 kg/m2 Jessica An APRN.PRODUCT LINE MANAGER Work Phone: [facility] 11-22-2023 08:09-0400 Body temperature 96.91 [degF] Jessica An APRN.PRODUCT LINE MANAGER Work Phone: [facility] 11-22-2023 08:09-0400 Body weight 123.38 kg Jessica An APRN.PRODUCT LINE MANAGER Work Phone: [facility] 11-22-2023 08:09-0400 Diastolic blood pressure 74 mm[Hg] Jessica An APRN.PRODUCT LINE MANAGER Work Phone: [facility] 11-22-2023 08:09-0400 Heart rate 98 /min Jessica An APRN.PRODUCT LINE MANAGER Work Phone: [facility] 11-22-2023 08:09-0400 Respiratory rate 16 /min Jessica An APRN.PRODUCT LINE MANAGER Work Phone: [facility] 11-22-2023 08:09-0400 SaO2% (BldA) [Mass fraction] 99 % Jessica An APRN.PRODUCT LINE MANAGER Work Phone: [facility] 11-22-2023 08:09-0400 Systolic blood pressure 138 mm[Hg] Jessica An APRN.PRODUCT LINE MANAGER Work Phone: [facility] 09-24-2023 09:16-0400 Body temperature 98.6 [degF] Jessica An APRN.PRODUCT LINE MANAGER Work Phone: [facility] 09-24-2023 09:16-0400 Body weight 123 kg Jessicamarsha An KILN DOOR BUILDER.PRODUCT LINE MANAGER Work Phone: [facility] 09-24-2023 09:16-0400 Diastolic blood pressure 98 mm[Hg] Jessica An KILN DOOR BUILDER.PRODUCT LINE MANAGER Work Phone: [facility] 09-24-2023 09:16-0400 Heart rate 86 /min Jessica An KILN DOOR BUILDER.PRODUCT LINE MANAGER Work Phone: [facility] 09-24-2023 09:16-0400 Respiratory rate 20 /min Jessica An KILN DOOR BUILDER.PRODUCT LINE MANAGER Work Phone: [facility] 09-24-2023 09:16-0400 SaO2% (BldA) [Mass fraction] 100 % Jessica Juve KILN DOOR BUILDER.PRODUCT LINE MANAGER Work Phone: [facility] 09-24-2023 09:16-0400 Systolic blood pressure 142 mm[Hg] Jessicamarsha An KILN DOOR BUILDER.PRODUCT LINE MANAGER Work Phone: [facility] 02-08-2023 08:17-0400 Body temperature 97.81 [degF] Padmini Athy PA-C Work Phone: [facility] 02-08-2023 08:17-0400 Body weight 123.2 kg Padmini Athy PA-C Work Phone: [facility] 02-08-2023 08:17-0400 Diastolic blood pressure 84 mm[Hg] Padmini Athy PA-C Work Phone: [facility] 02-08-2023 08:17-0400 Heart rate 91 /min Padmini Athy PA-C Work Phone: [facility] 02-08-2023 08:17-0400 Respiratory rate 18 /min Padmini Athy PA-C Work Phone: [facility] 02-08-2023 08:17-0400 SaO2% (BldA) [Mass fraction] 98 % Padmini Athy PA-C Work Phone: [facility] 02-08-2023 08:17-0400 Systolic blood pressure 128 mm[Hg] Padmini Braun PA-C Work Phone: [facility] Encounters Encounter Date Encounter Type Care Provider Facility Start: 02-26-2025 End: 02-26-2025 Patient encounter procedure Mai Bowdengs KILN DOOR BUILDER.PRODUCT LINE MANAGER Work Phone: [facility] Comment on above: Rhinosinusitis (Prim ulises Dx); Exposure to Streptococcal pharyngitis Start: 02-26-2025 End: 02-26-2025 ambulatory CHARLEE HUMPHRIES Facility:[facility] Start: 01-30-2025 End: 02-03-2025 ambulatory CHARLEE HUMPHRIES KILN DOOR BUILDER - PRODUCT LINE MANAGER Facility:[facility] Start: 01-30-2025 End: 02-03-2025 Outreach Lab CATHERINE SAGEVIRY KILN DOOR BUILDER-PRODUCT LINE MANAGER [facility] Start: 12-24-2024 End: 12-24-2024 ambulatory Charlee Humphries SHELL SORTER-C Work Phone: [facility] Work Phone: Start: 12-24-2024 End: 12-24-2024 Patient encounter procedure Charlee Humphries SHELL SORTER-C -Laboratory Work Phone: Start: 12-24-2024 End: 12-24-2024 ambulatory Charlee Humphries Facility:[facility] Start: 09-27-2024 End: 09-27-2024 ambulatory CHARLEE HUMPHRIES KILN DOOR BUILDER - PRODUCT LINE MANAGER Facility:[facility] Start: 09-22-2024 End: 09-22-2024 ambulatory Charlee Humphries SHELL SORTER-C Work Phone: [facility] Work Phone: Start: 09-22-2024 End: 09-22-[address] Anne Ridley MD -Ultrasound, [facility] Work Phone: Start: 09-22-2024 End: 09-22-2024 ambulatory Anne Ridley Facility:[facility] Start: 08-17-2024 End: 08-17-2024 ambulatory CHARLEE HUMPHRIES Facility:[facility] Start: 08-17-2024 End: 08-17-2024 Office outpatient visit 25 minutes Millicent Sol PA-C Work Phone: [facility] Comment on above: Urinary frequency (P rimary Dx); Acute UTI Start: 06-27-2024 End: 06-27-2024 Patient encounter procedure Charlee Humphries SHELL SORTER-C -Laboratory Work Phone: Start: 06-27-2024 End: 06-27-2024 ambulatory Charlee Humphries Facility:[facility] Start: 06-25-2024 End: 06-25-2024 Patient encounter procedure Charlee Humphries SHELL SORTER-C -Laboratory Work Phone: Start: 06-24-2024 End: 06-25-2024 ambulatory CHARLEE HUMPHRIES Facility:[facility] Start: 06-24-2024 End: 06-24-2024 Subsequent hospital visit by physician Fredo Garcia DO Work Phone: [facility] End[facility] Comment on above: Screen for colon can cer [Z12.11] Start: 06-11-2024 Non-patient / Non-visit Dr. Gina Puente MD -[facility] Work Phone: Start: 06-10-2024 Non-patient / Non-visit Dr. Gina Puente MD -[facility] Work Phone: Start: 06-09-2024 ambulatory Charlee Humphries Facility:[facility] Start: 06-09-2024 End: 06-11-2024 Evaluation and management of inpatient Dr. Ghanshyam Puente MD -Medical Surgical 3 Work Phone: Start: 05-23-2024 End: 05-23-2024 ambulatory CHARLEE HUMPHRIES Facility:[facility] Start: 05-23-2024 End: 05-23-2024 Office outpatient visit 25 minutes Min Hameed APRN.PRODUCT LINE MANAGER Work Phone: [facility] Comment on above: Urinary frequency (P rimary Dx) Start: 05-04-2024 End: 05-04-2024 Telephone encounter Maximino Julian MD Work Phone: [facility] Comment on above: Results (Urine Cx mi xed) Start: 05-02-2024 End: 05-02-2024 Patient encounter procedure Fabricio Garcia PA Work Phone: [facility] Comment on above: Acute UTI (Primary D x); Burning with urination Start: 05-02-2024 End: 05-02-2024 ambulatory CHARLEE HUMPHRIES Facility:[facility] Start: 03-29-2024 End: 03-29-2024 ambulatory RADHA NAVARRO Facility:[facility] Start: 03-29-2024 End: 03-29-2024 Patient encounter procedure Radha Navarro KILN DOOR BUILDER.PRODUCT LINE MANAGER Work Phone: General Surgery Comment on above: Screen for colon can cer (Primary Dx) Start: 11-24-2023 Telephone encounter Mai Milton escobar KILN DOOR BUILDER.PRODUCT LINE MANAGER Work Phone: [facility] Comment on above: Results Start: 11-22-2023 End: 11-22-2023 Patient encounter procedure Jessica An KILN DOOR BUILDER.PRODUCT LINE MANAGER Work Phone: [facility] Comment on above: Urinary frequency (P rimary Dx) Start: 09-24-2023 End: 09-25-2023 ambulatory CHARLEE HUMPHRIES KILN DOOR BUILDER - PRODUCT LINE MANAGER Facility:[facility] Start: 09-24-2023 End: 09-24-2023 Patient encounter procedure CHARLEE HUMPHRIES KILN DOOR BUILDER - PRODUCT LINE MANAGER [facility] Start: 09-24-2023 End: 09-24-2023 Patient encounter procedure Jessica An KILN DOOR BUILDER.PRODUCT LINE MANAGER Work Phone: [facility] Comment on above: Rhinosinusitis (Prim ulises Dx) Start: 09-04-[address] RAMILA ADAMS MD Fa cility:[facility] Start: 06-08-2023 End: 06-08-2023 ambulatory [facility] Work Phone: Start: 06-08-2023 End: 06-08-2023 [facility]: Start: 05-02-2023 End: 05-02-2023 Subsequent hospital visit by physician [facility] Work Phone: Radiology Comment on above: Injury of toe on lef t foot, initial encounter [S99.922A] Start: 02-08-2023 End: 02-08-2023 Patient encounter procedure Padmini Braun PA-C Work Phone: [facility] Comment on above: Urinary frequency (P rimary Dx) Start: 11-29-2022 End: 11-29-2022 ambulatory [facility] Work Phone: Start: 11-29-2022 End: 11-29-2022 Patient encounter procedure [facility]-Laboratory Start: 09-18-2022 End: 09-18-2022 Patient encounter procedure GEMINI HARPERKINSON KILN DOOR BUILDER-PRODUCT LINE MANAGER [facility] Start: 05-17-2022 End: 05-17-2022 ambulatory [facility] Work Phone: Start: 05-17-2022 End: 05-17-2022 [facility] Start: 03-22-2022 End: 03-22-2022 ambulatory [facility] Work Phone: Start: 03-22-2022 End: 03-22-2022 Patient encounter procedure [facility]-Laboratory Start: 02-25-2022 End: 02-26-2022 Evaluation and management of inpatient CHARLEE HUMPHRIES [facility] Start: 12-20-2021 End: 12-20-2021 Patient encounter procedure [facility]-Radiology, [facility] Start: 09-21-2021 End: 09-21-2021 Patient encounter procedure VEE FENTON KILN DOOR BUILDER-CNM [facility] Procedures Date Procedure Procedure Detail Performing Clinician Start: 02-26-2025 Iadna streptococcus group a amplified probe tq Mai Brandt APRN.PRODUCT LINE MANAGER Work Phone: Start: 12-24-2024 Parathyroid hormone measurement Charlee Humphries SHELL SORTER-C Work Phone: Start: 12-24-2024 Vitamin D, 25-hydrox y measurement Charlee Humphries SHELL SORTER-C Work Phone: Comment on above: Vitamin D StatusDefi ciency: <20 ng/mL (50nmol/L)Insufficiency: 20-30 ng/mL (50-75 nmol/L)Sufficiency: 30-100 ng/mL (75-250 nmol/L)Toxicity: >100 ng/mL (>250 nmol/L) Start: 09-22-2024 Complete ultrasound of kidneys and bladder Charlee Humphries SHELL SORTER-C Work Phone: Start: 08-17-2024 Urnls dip stick/tabl et rgnt auto w/o microscopy Millicent CATC Work Phone: Start: 06-24-2024 Colonoscopy flx dx w /collj spec when pfrmd Radha Navarro KILN DOOR BUILDER.PRODUCT LINE MANAGER Work Phone: Start: 06-24-2024 Colonoscopy Fredo Min flynn DO Work Phone: Start: 06-09-2024 US scan of gallbladder Charlee Humphries SHELL SORTER-C Work Phone: Start: 05-23-2024 Urnls dip stick/tabl et rgnt auto w/o microscopy Maximino Julian MD Work Phone: Start: 05-02-2024 Urnls dip stick/tabl et rgnt auto w/o microscopy Padmini CATC Work Phone: Start: 11-22-2023 Urnls dip stick/tabl et rgnt auto w/o microscopy Betzaida Thornton KILN DOOR BUILDER.PRODUCT LINE MANAGER Work Phone: Start: 05-02-2023 Radex toe minimum 2 views Mehul Neves KILN DOOR BUILDER.PRODUCT LINE MANAGER Work Phone: Start: 02-08-2023 Urnls dip stick/tabl et rgnt auto w/o microscopy Padmini Braun PA-C Work Phone: Start: 12-20-2021 Plain x-ray of hand Start: 05-18-2019 Hysteroscopy fluid (substance) VEE FENTON KILN DOOR BUILDER-CNM Start: 06-22-2018 Mammography Padmini Braun PA-C Work Phone: Start: 04-11-2009 Lipid 1996 panel - S daniella or Plasma Jessica An APRN.PRODUCT LINE MANAGER Work Phone: section [facility] IN KILN DOOR BUILDER-CNM Comment on above: x 2 Foot repair VEE Bartholomew PRN-CNM Comment on above: Joey surgery for bone on top of foot Plan of Treatment Date Care Activity Detail Author Start: 01-01-2029 Urine microalbumin profile DTaP,Tdap,Td Vaccine (4 - Td or Tdap) [facility] Start: 06-24-2025 Screening for malign ant neoplasm of colon [facility] Start: 03-13-2025 Influenza vaccination Influenza Vacc ine (#1) [facility] Start: 06-24-2024 End: 06-24-2024 Patient encounter procedure 06/24/2024 12:00 PM EST Appointment [facility] [address] [place] [address] Fredo Garcia, [address] [place] [address] colon [facility] Comment on above: colon Start: 06-11-2024 Patient discharge [facility] Start: 06-09-2024 Following clinical pathway protocol [facility] Start: 06-09-2024 Assessment of risk o f venous thromboembolism [facility] Start: 06-09-2024 Insertion of cathete r into peripheral vein [facility] Start: 06-09-2024 Providing care accor ding to standard [facility] Start: 06-09-2024 [facility] Start: 06-09-2024 Admission procedure [facility] Start: 03-13-2024 Covid-19 Vaccine ( season) Covid-19 Vaccine ( season) [facility] Start: 03-13-2024 Covid-19 Vaccine () Covid-19 Vaccine () [facility] Start: 03-13-2024 Influenza vaccination Influenza Vacc ine (#1) [facility] Start: 12-23-2023 End: 12-23-2023 Patient encounter procedure 12/23/2023 4:15 PM EDT Office Visit General Surgery [address] [place], [place] [id number] Buzz Serrano MD [address] [place], [place] [id number] COLON CONSULT - PCP REFERRING - IN SCANNED DOC General Surgery Comment on above: COLON CONSULT - PCP REFERRING - IN SCANNED DOC Start: 07-13-2023 Behavioral Health Screening Behavioral Health Screening [facility] Start: 07-13-2023 [facility] Start: 03-13-2023 Covid-19 Vaccine ( season) Covid-19 Vaccine () [facility] Start: 03-13-2023 Influenza vaccination INFLUENZA (#1) [facility] Start: 07-13-2022 DEPRESSION ASSESSMENT DEPRESSION ASS ESSMENT [facility] Start: 09-16-2021 HPV TESTING HPV TESTING [facility] Start: 09-16-2021 PAP TESTING PAP TESTING [facility] Start: 09-16-2021 Screening for malign ant neoplasm of cervix [facility] Start: 2021 Pneumococcal Vaccine : 50+ (1 of 1 - PCV) Pneumococcal Vaccine: 50+ (1 of 1 - PCV) [facility] Start: 2021 SHINGRIX VACCINE (1 of 2) ANGULO GRIX VACCINE (1 of 2) [facility] Start: 06-22-2019 Mammography MAMMOGRAM [facility] Start: 06-22-2019 Screening for malign ant neoplasm of breast Mammogram Screening [facility] Start: 04-11-2019 Urine microalbumin profile DTAP,TDAP,TD (2 - Td or Tdap) [facility] Start: 2016 COLOGUARD (FIT-DNA) COLOGUARD (FIT-D NA) [facility] Start: 2016 Colonoscopy COLONOSCOPY [facility] Start: 2016 COLORECTAL CANCER SCREENING COLORECTAL CANCER SCREENING [facility] Start: [address] COLONOGRAPHY [facility] Start: 2016 DIABETES SCREEN DIABETES SCREEN [facility] Start: 2016 Diabetes Screening Diabetes Screenin g [facility] Start: 2016 FECAL OCCULT BLOOD FECAL OCCULT BLOO D [facility] Start: 2016 Lipid panel Lipid Screening [facility] Start: 2016 LIPID SCREEN LIPID SCREEN [facility] Start: 2016 Screening for malign ant neoplasm of colon [facility] Start: 2016 SIGMOIDOSCOPY SIGMOIDOSCOPY [facility] Start: 1990 Hepatitis B Vaccine (1 of 3 - 19+ 3-dose series) Hepatitis B Vaccine (1 of 3 - 19+ 3-dose series) [facility] Start: 1989 Anxiety Screening Anxiety Screening [facility] Start: 1989 Depression Screening Depression Scre [facility] Start: 1989 HEPATITIS C SCREENING HEPATITIS C [facility] Start: 1989 Hepatitis C screening Hepatitis C [facility] Start: 1989 HIV SCREENING HIV SCREENING [facility] Start: 1989 HIV screening HIV Screening [facility] Start: 1971 HEPATITIS B (1 of 3 - 3-dose series) HEPATITIS B (1 of 3 - 3-dose series) [facility] Bacteria identified in Urine by Culture URINE CULTURE Microbiology Routine Urinary frequency Ordered: 02/08/2023 [facility] Work Phone: Comment on above: Ordered: 02/08/2023 Bacteria identified in Urine by Culture URINE CULTURE Microbiology Routine Urinary frequency Ordered: 11/22/2023 [facility] Work Phone: Comment on above: Ordered: 11/22/2023 Bacteria identified in Urine by Culture URINE CULTURE Microbiology Routine Burning with urination Ordered: 05/02/2024 [facility] Work Phone: Comment on above: Ordered: 05/02/2024 Bacteria identified in Urine by Culture URINE CULTURE Microbiology Routine Urinary frequency Ordered: 05/23/2024 [facility] Work Phone: Comment on above: Ordered: 05/23/2024 Bacteria identified in Urine by Culture BACTERIAL CULTURE, URINE Microbiology Routine Urinary frequency Acute UTI Ordered: 08/17/2024 [facility] Work Phone: Comment on above: Ordered: 08/17/2024 Patient referral [facility] Work Phone: End: 03-29-2025 Screening colonoscopy COLONOSCOPY SCREENING Endoscopy Routine Screen for colon cancer 1 Occurrences starting 03/29/2024 until 03/29/2025 [facility] Work Phone: Comment on above: 1 Occurrences starti ng 03/29/2024 until 03/29/2025 Immunizations Immunization Date Immunization Notes Care Provider [facility] 05-01-2024 influenza virus vaccine, unspecified formulation Mai Brandt KILN DOOR BUILDER.PRODUCT LINE MANAGER Work Phone: [facility] 04-11-2023 influenza, injectabl e, quadrivalent, contains preservative; Translations: [Fluarix PF Quadrivalent ] CHARLEE HUMPHRIES KILN DOOR BUILDER - PRODUCT LINE MANAGER [facility] 04-11-2023 influenza virus vaccine, unspecified formulation Radha Navarro KILN DOOR BUILDER.PRODUCT LINE MANAGER Work Phone: [facility] 08-09-2022 SARS-CoV-2 (CV19)mRNA-1273 bivalent vac CATHERINE COTTRELL KILN DOOR BUILDER-PRODUCT LINE MANAGER [facility] 05-06-2022 influenza, injectabl e, quadrivalent, contains preservative; Translations: [Fluarix PF Quadrivalent ] GEMINI DERAS KILN DOOR BUILDER-PRODUCT LINE MANAGER [facility] 05-04-2021 SARS-CoV-2 (COVID-19 ) mRNA-1273 vaccine CATHERINE COTTRELL KILN DOOR BUILDER-[facility] 04-16-2021 influenza, injectabl e, quadrivalent, contains preservative; Translations: [Fluarix PF Quadrivalent ] VEE FENTON KILN DOOR BUILDER-[facility] 04-06-2021 SARS-CoV-2 (COVID-19 ) mRNA-1273 vaccine CATHERINE COTTRELL KILN DOOR BUILDER-[facility] 03-17-2020 influenza virus vaccine, unspecified formulation [facility] 04-26-2019 influenza, injectabl e, quadrivalent, preservative free; Translations: [Fluarix PF Quadrivalent ] VEE FENTON KILN DOOR BUILDER-[facility] 01-01-2019 tetanus toxoid, reduced diphtheria toxoid, and acellular pertussis vaccine, adsorbed VEE FENTON KILN DOOR BUILDER-[facility] 03-22-2018 influenza virus vaccine, unspecified formulation VEE JOSSY KILN DOOR BUILDER-CN [facility] 05-01-2017 influenza virus vaccine, unspecified formulation VEE JOSSY KILN DOOR BUILDER-CN [facility] 04-18-2015 influenza virus vaccine, unspecified formulation VEE JOSSY KILN DOOR BUILDER-CNM [facility] 06-30-2014 influenza virus vaccine, unspecified formulation VEE FENTON KILN DOOR BUILDER-CNM [facility] 05-03-2011 influenza virus vaccine, live, attenuated, for intranasal use Padminilourdes Hilly PA-C Work Phone: [facility] Work Phone: 04-11-2009 influenza virus vaccine, unspecified formulation Padmini Lizy PA-C Work Phone: [facility] 04-11-2009 tetanus toxoid, reduced diphtheria toxoid, and acellular pertussis vaccine, adsorbed Padmini Athy PA-C Work Phone: [facility] 02-09-2008 tetanus toxoid, reduced diphtheria toxoid, and acellular pertussis vaccine, adsorbed VEE FENTON KILN DOOR BUILDER-[facility] Payers Date Payer Category Payer Private Health Insurance [id number] 2024 Self-pay [id number] 2024 [facility] [id number] 2024 Unknown [id number] 2023 Unknown [id number] 2023 Unknown [id number] 2019 Unknown [id number] 1971 Unknown [id number]. 651 1971 Unknown [id number]. 627 1971 Unknown [id number]. 627 1971 Unknown [id number] .[id number]. 627 1971 Unknown [id number]. 627 Unknown [id number]. 462 Unknown [id number] [id number]. 462 Unknown [id number]. 462 Unknown [id number]. 462 Unknown [id number]. 462 Unknown [id number]. 462 Unknown [id number]. 462 Unknown [id number]. 462 Social History Date Type Detail Facility Start: 02-01-2019 End: 12-26-2024 Never smoked tobacco (finding) [facility] Start: 1970 Sex Assigned At Female [facility] Start: 04-19-2020 End: 04-19-2020 Tobacco smoking status NHIS Unknown if ever smoked [facility] Start: 04-19-2020 None [facility] Start: 04-19-2020 Spouse/ Signif icant Other;With Family [facility] Start: 02-08-2023 End: 02-26-2025 Alcohol intake Current drinker of alcohol (finding) [facility] Start: 02-08-2023 End: 03-29-2024 History of Social function [facility] Start: 02-08-2023 End: 03-29-2024 Tobacco use panel [facility] Start: 05-04-2013 Alcohol Comment very rarely [facility] Start: 1970 Sex Assigned At Not on file [facility] Start: 06-13-2012 National Score (1-10 0), lower number is lower risk Not on file [facility] Start: 09-15-2019 End: 10-03-2024 Sex Female (finding) [facility] Sexual Orientation [place] [facility] Goals Date Patient Goal Desired Activity /State Functional Status Date Assessment Result Facility 06-11-2024 Functional status Activity Abili ty Independent [facility] Work Phone: 06-10-2024 Functional status Patient Activity Up ad richie [facility] Work Phone: 05-12-2014 Are you deaf, or do you have serious difficulty hearing No 05/12/2014 1:22 PM Leeanna Cox Ma No [facility] 05-12-2014 Are you blind, or do you have serious difficulty seeing, even when wearing glasses No 05/12/2014 1:22 PM Leeanna Cox Ma No [facility] 05-12-2014 Do you have serious difficulty walking or climbing stairs No 05/12/2014 1:22 PM EDT Isabelle Benitez Leeanna Pricila [facility] 05-12-2014 Do you have difficul ty dressing or bathing No 05/12/2014 1:22 PM EDT Isabelle Benitez Leeanna Mcnulty [facility] 05-12-2014 Because of a physica l, mental, or emotional condition, do you have difficulty doing errands alone such as visiting a physician's office or shopping No 05/12/2014 1:22 PM EDT Isabelle Benitez Leeanna Pricila [facility] Mental Status Date Assessment Result Facility 06-11-2024 Cognitive function Voice/Name [place] [facility] Work Phone: 05-12-2014 Because of a physica l, mental, or emotional condition, do you have serious difficulty concentrating, remembering, or making decisions No 05/12/2014 1:22 PM EDT Isabelle Benitez Leeanna Pricila [facility] Clinical Notes 02-08-2023 to 02-26-2025 Mai Brandt APRN.PRODUCT LINE MANAGER - 02/26/2025 9:32 AM EDTPatient Millicent Alcantar PA-C - 08/17/2024 7:34 AM Fredo Dotson DO - 06/24/2024 12:45 PM EST Note Date & Type Note Facility 02-26-2025 Note HNO ID: [id number] Author: MAI BRANDT APRN.JING Service: ? Author Type: Nurse Practitioner Type: Progress Notes Filed: 02/26/2025 09:34 Note Text: URGENT CARE MO Dias is a 54 year old female. Patient presents with: Nasal Congestion: Cough, ear pain x 6 days Had headache and runny nose to start Nasal Congestion Associated symptoms include congestion. URI Symptoms: - Onset 6 days ago. - Initial symptoms included cephalgia with pressure sensation. - Progressed to rhinorrhea, followed by nasal congestion. - Symptoms have now localized to the throat, causing dysphonia and odynophagia. - Currently taking OTC with no improvement. - Negative at-home COVID-19 test yesterday. - Denies tobacco use. Daughter here for similiar. Denies CP, dyspnea, SOB Denies emesis. PAST MEDICAL HISTORY Diagnosis Date COVID-19 De [...] Take 1 capsule by mouth once daily. amoxicillin-clavulanate potassium (AUGMENTIN) 875-125 mg per tablet Take 1 tablet by mouth two times a day for 5 days. FAMILY HISTORY Problem Relation Age of Onset Breast Cancer Mother Dx at 42 Hypertension Mother Heart Father open heart surgery Hypertension Father Alzheimer's Disease Father Hypertension Brother X-2 Hypertension Maternal Aunt Breast Cancer Maternal Aunt 78 SOCIAL HISTORY[1] Review of Systems HENT: Positive for congestion. Head: (+) headache Ears/Nose/Mouth/Throat: (+) rhinorrhea, (+) nasal congestion, (+) sore throat, (+) odynophagia, (+) dysphonia Objective BP 136/81 Pulse 94 Temp 36.3 ?C (97.3 ?F) Resp 22 Wt 122 kg (268 lb 15.4 oz) LMP (LMP Unknown) SpO2 97% BMI 40.90 kg/m? Physical Exam Vitals and nursing note reviewed. Constitutional: General: She is not in acute distress. Appearance: Normal appearance. She is normal weight. She is not ill-appearing, toxic-appearing or diaphoretic. HENT: Head: Normocephalic and atraumatic. Right Ear: Ear canal and external ear normal. Left Ear: Ear canal and external ear normal. Ears: Comments: +frontal sinus pressure +maxillary sinus pressure Nose: Congestion present. No rhinorrhea. Mouth/Throat: Mouth: Mucous membranes are moist. Pharynx: Posterior oropharyngeal erythema present. No oropharyngeal exudate. Eyes: General: Right eye: No discharge. Left eye: No discharge. Extraocular Movements: Extraocular movements intact. Conjunctiva/sclera: Conjunctivae normal. Pupils: Pupils are equal, round, and reactive to light. Cardiovascular: Rate and Rhythm: Normal rate and regular rhythm. Pulses: Normal pulses. Heart sounds: Normal heart sounds. No murmur heard. No friction rub. Pulmonary: Effort: Pulmonary effort is normal. No respiratory distress. Breath sounds: Normal breath sounds. No stridor. No wheezing, rhonchi or rales. Chest: Chest wall: No tenderness. Abdominal: General: Abdomen is flat. There is no distension. Palpations: Abdomen is soft. There is no mass. Tenderness: There is no abdominal tenderness. There is no right CVA tenderness, left CVA tenderness, guarding or rebound. Hernia: No hernia is present. Musculoskeletal: General: No swelling, tenderness, deformity or signs of injury. Normal range of motion. Cervical back: Normal range of motion and neck supple. No rigidity. Right lower leg: (more content not included)... [facility] 02-26-2025 History of Presen t illness Narrative URGENT CARE MO Forte Ling Dias is a 54 year old female. Patient presents with: Nasal Congestion: Cough, ear pain x 6 days Had headache and runny nose to start Nasal Congestion Associated symptoms include congestion. URI Symptoms: - Onset 6 days ago. - Initial symptoms included cephalgia with pressure sensation. - Progressed to rhinorrhea, followed by nasal congestion. - Symptoms have now localized to the throat, causing dysphonia and odynophagia. - Currently taking OTC with no improvement. - Negative at-home COVID-19 test yesterday. - Denies tobacco use. Daughter here for similiar. Denies CP, dyspnea, SOB Denies emesis. PAST MEDICAL HISTORY Diagnosis Date COVID-19 De [...] Take 1 capsule by mouth once daily. amoxicillin-clavulanate potassium (AUGMENTIN) 875-125 mg per tablet Take 1 tablet by mouth two times a day for 5 days. FAMILY HISTORY Problem Relation Age of Onset Breast Cancer Mother Dx at 42 Hypertension Mother Heart Father open heart surgery Hypertension Father Alzheimer's Disease Father Hypertension Brother X-2 Hypertension Maternal Aunt Breast Cancer Maternal Aunt 78 SOCIAL HISTORY[1] Review of Systems HENT: Positive for congestion. Head: (+) headache Ears/Nose/Mouth/Throat: (+) rhinorrhea, (+) nasal congestion, (+) sore throat, (+) odynophagia, (+) dysphonia Objective BP 136/81 Pulse 94 Temp 36.3 C (97.3 F) Resp 22 Wt 122 kg (268 lb 15.4 oz) LMP (LMP Unknown) SpO2 97% BMI 40.90 kg/m Physical Exam Vitals and nursing note reviewed. Constitutional: General: She is not in acute distress. Appearance: Normal appearance. She is normal weight. She is not ill-appearing, toxic-appearing or diaphoretic. HENT: Head: Normocephalic and atraumatic. Right Ear: Ear canal and external ear normal. Left Ear: Ear canal and external ear normal. Ears: Comments: +frontal sinus pressure +maxillary sinus pressure Nose: Congestion present. No rhinorrhea. Mouth/Throat: Mouth: Mucous membranes are moist. Pharynx: Posterior oropharyngeal erythema present. No oropharyngeal exudate. Eyes: General: Right eye: No discharge. Left eye: No discharge. Extraocular Movements: Extraocular movements intact. Conjunctiva/sclera: Conjunctivae normal. Pupils: Pupils are equal, round, and reactive to light. Cardiovascular: Rate and Rhythm: Normal rate and regular rhythm. Pulses: Normal pulses. Heart sounds: Normal heart sounds. No murmur heard. No friction rub. Pulmonary: Effort: Pulmonary effort is normal. No respiratory distress. Breath sounds: Normal breath sounds. No stridor. No wheezing, rhonchi or rales. Chest: Chest wall: No tenderness. Abdominal: General: Abdomen is flat. There is no distension. Palpations: Abdomen is soft. There is no mass. Tenderness: There is no abdominal tenderness. There is no right CVA tenderness, left CVA tenderness, guarding or rebound. Hernia: No hernia is present. Musculoskeletal: General: No swelling, tenderness, deformity or signs of injury. Normal range of motion. Cervical back: Normal range of motion and neck supple. No rigidity. Right lower leg: No edema. Left lower leg: No edema. Lymphadenopathy: Cervical: Cervical adenopathy present. Skin: General: Skin is warm and dry. Coloration: Skin is not jaundiced or pale. Findings: No bruising, erythema, lesion or rash. Neurological: General: No focal deficit present. Mental Status: She is alert and oriented to person, place, and time. Cranial Nerves: No cranial nerve deficit. Sensory: No sensory deficit. Motor: No weakness. Coordination: Coordination normal. Gait: Gait normal. Psychiatric: Mood and Affect: Mood normal. Behavior: Behavior normal. Thought Content: Thought content normal. Judgment: Judgment normal. { 1. Rhinosinusitis (J32.9) 2. Exposure to Streptococcal pharyngitis (Z20.818) - Acute rhinosinusitis with negative rapid strep test. - Start Augmentin; prescription sent. - Advised to follow up with primary care provider if symptoms persist. and Recording using Pinpoint MD software for draft documentation of the visit was discussed with the patient/authorized direct sales representative; all questions welcomed and answered. Patient/authorized direct sales representative agreed to proceed MDM Procedures [1] Social History Tobacco Use Smoking status: Never Smokeless tobacco: Never Substance Use Topics Alcohol use: Yes Comment: very rarely Drug use: No documented in this encounter [facility] 02-26-2025 Instructions Mai Brandt APRN.CNP - 02/26/2025 9:26 AM EDT Images from the original note were not included. Adult Sinusitis Patient Education What is Sinusitis? Sinusitis [zlke-xla-gjbz-tis] is inflammation of the sinuses or swelling of the lining of the sinus cavity or nose. During an infection the sinuses become blocked with fluid causing swelling of the lining of the sinuses. Symptoms: (viral and bacterial infections) Stuffy nose Runny nose Postnasal drip Fever Toothache Headache Tiredness Cough Sore throat Face and head pressure and or pain Common causes: 98% of sinus infections are viral caused by viruses. Risk Factors of Sinusitis Include: Allergies, air pollution, indoor humidity and outdoor temperature changes, andstructural changes in the nose may contribute to sinus pain, pressure and congestion. When to get help? Temperature greater than 100.4 F Symptoms lasting more than 10 days or worsening symptoms greater than 7-10 days. If you do not improve or worsen after a course of antibiotics, you should be re-examined. Diagnosis and Treatment: Your healthcare provider will ask a number of questions about your symptoms and how long they have occurred. If symptoms of sinusitis persist greater than 10 days, it is possible you have a bacterial sinus infection and an antibiotic is prescribed. If it is viral, antibiotics will not help. You may be instructed to take vpmf-yet-xltvozw medications for symptoms. including fever reducers acetaminophen or ibuprofen, nasal saline spray, cough and cold preparations and decongestants as prescribed by the physician, nurse practitioner or physician assistant education director. Self-Care and Prevention: Rest Fluids for hydration Good hand washing Humidifier Avoid smoking and exposure to second hand smoke Avoid sick contacts documented in this encounter [facility] 02-01-2025 Note . MICRO - Microbiology PROCEDURE: Urine Culture [*1] SOURCE: Urine, Clean Catch BODY SITE: COLLECTED DATE/TIME: 01/30/2025 16:23 EDT RECEIVED DATE/TIME: 01/31/2025 15:14 EDT START DATE/TIME: 01/31/2025 15:14 EDT FREE TEXT SOURCE: FINAL REPORTS Final Report [] Verified Date/Time/Personnel: 02/01/2025 15:43 EDT >100,000 cfu/ml Multiple bacterial morphotypes present. Probable Contamination. Suggest recollection if clinically indicated. PRELIMINARY REPORTS Preliminary Report [] Verified Date/Time/Personnel: 01/31/2025 15:59 EDT Specimen received in lab. Performing Locations *1: This test was performed at: [facility], [address] [place] [address], [id number] , [facility] 09-23-2024 Radiology Diagnostic study note [facility] Imaging Services [address] [place] [address] Kidney and Bladder MR#: [id number] Acct: [id number] Name: LING DIAS Rep #: [id number] : 1970 F 54 From: Forrest Perdue MD PCP: NOAH Lim Status: REG CLI Study:Kidney and Bladder Date of Exam: 0 09/22/24 Exam# [id number] Ordering Dr: Anne Ridley MD PROCEDURE: KIDNEY [...] is not seen during imaging. Reading Location: [id number] CC: SHELL SORTER-C Charlee Humphries; Dr. Anne Ridley MD ~ Main Line Assembler: Signed [facility] 08-17-2024 Note HNO ID: [id number] Author: MILLICENT SOL PA-C Service: ? Author Type: Physician Interpretive Naturalist Type: Progress Notes Filed: 08/17/2024 07:39 Note Text: This note was created using Boomlagoonter. Subjective Ling Dias is a 54 year [...] PHENAZOPYRIDINE 100 MG TABLET Millicent Sol PA-C [facility] 08-17-2024 History of Presen t illness Narrative This note was created using NoteWriter. Reanna Tucker McConahay is a 54 year old female. Patient [...] Millicent Sol PA-C documented in this encounter [facility] 06-24-2024 History and physical note PROCEDURAL [...] DATE: June 24, 2024 TIME: 12:14 PM [facility] 06-24-2024 History and physical note PROCEDURAL SEDATION [...] TIME: 12:14 PM documented in this encounter [facility] 06-11-2024 Note [facility] Medical Records Department [address] [place] [address] Discharge Summary 06/11/24 1415 MR#: [id number] Acct: [id number] Name: LING DIAS Rep #: [id number] : 1970 54 From: Ghanshyam Puente MD PCP: NOAH Lim Status:DIS IN [id number] Prov[facility] Date of Admission: 06/09/24 Primary Care [...] RDW Std Hilda (more content not included)... [facility] 06-09-2024 Evaluation note Diagnosis Onset Date Resolution HTN (hypertension) resolved Novemb er 2023 4:55pm [facility] Work Phone: [phone]) 940-516811-11-2024 NoteHNO ID: [id number] Author: MIN HAMEED APRN.PRODUCT LINE MANAGER Service: ? Author Type: Nurse Practitioner Type: [...] superficial or posterior (more content not included)... [facility]11-11-2024 History of Present illness Narrative* Min Hameed APRN.PRODUCT LINE MANAGER - 05/23/2024 4:53 PM EST Subjective HPI [...] of care. This note was generated using [employer] software. It may contain errors in wording, punctuation, or spelling. Min Hameed APRN.PRODUCT LINE MANAGER documented in this encounterProm[facility] Telephone encounter Note * Telephone Encounter - Brooke Griggs MA - 05/04/2024 7:23 AM EDT Patient given results and verbalized understanding of instructions given. Brooke Griggs MA [facility]10-23-2024 Miscellaneous Notes* Telephone Encounter - Brooke Griggs MA - 05/04/2024 7:23 AM EDT Patient given results and verbalized understanding of instructions given. Brooke Griggs MA * Telephone Encounter - Maximino Julian MD - 05/04/2024 7:10 AM EDT Urine culture did not show a clear infection. Finish antibiotic and follow up with PCP, urology, orGYN for recheck. documented in this encounterProm[facility] Telephone encounter Note * Telephone Encounter - Maximino Julian MD - 05/04/2024 7:10 AM EDT Urine culture did not show a clear infection. Finish antibiotic and follow up with PCP, urology, orGYN for recheck. [facility]10-21-2024 NoteHNO ID: [id number] Author: FABRICIO GARCIA PA Service: ? Author Type: Physician Interpretive Naturalist Type: Progress Notes Filed: 05/02/2024 16:47 Note Text: This note was created using Reflexis Systemsriter. Subjective Ling Dias is a 53 year [...] detail warranting prompt ER evaluation. Fabricio Garcia, [facility]10-21-2024 History of Present illness Narrative* Fabricio Garcia, PA - 05/02/2024 4:45 PM EDT This note was created using Reflexis Systemsriter. Subjective Ling Dias is a 53 year [...] ER evaluation. RUMA Christianson documented in this encounterPromedica [facility]09-[facility] Nurse Note* Monisha Brooks RN - 03/29/2024 12:31 PM EDT This Nurse reviewed and provided patient with copy of written instructions for colonoscopy with SuTab prep. Gave patient a coupon for [employer] for the medication, incase her insurance does not cover it. The patient verbalized understanding and was given a number for questions. Monisha Brooks RN [facility]09-17-2024 Nurse Note* Monisha Brooks RN - 03/29/2024 12:31 PM EDT This Nurse reviewed and provided patient with copy of written instructions for colonoscopy with SuTab prep. Gave patient a coupon for [employer] for the medication, incase her insurance does not cover it. The patient verbalized understanding and was given a number for questions. Monisha Brooks RN documented in this encounterPromedica [facility]09-17-[facility]24 History of Present illness Narrative* Radha Navarro APRN.JING - 03/29/2024 10:00 AM EDT HISTORY AND PHYSICAL Ling Dias : 1970 REFERRING PHYSICIAN: Charlee Humphries, DITCHING MACHINE ENGINEER [address] [facility] [address] CHIEF COMPLAINT: Patient presents with: Consult: Colonoscopy [...] (97 F), height 172.7 cm (5' 8), oqsjkb530.5 kg (272 lb 3.2 oz), SpO2 98%. [...] necessary. Radha Navarro APRN.JING documented in this encounterPromedica [facility]09-17-2024 NoteHNO ID: [id number] Author: RADHA NAVARRO APRN.CNP Service: ? Author Type: Nurse Practitioner Type: Progress Notes Filed: 03/29/2024 10:45 Note Text: HISTORY AND PHYSICAL Ling Dias : 1970 REFERRING PHYSICIAN: Charlee Humphries, DITCHING MACHINE ENGINEER [address] [facility] [address] CHIEF COMPLAINT: Patient presents with: Consult: Colonoscopy [...] Quervain's disease (tenosynovitis) Depression Dermatitis Elevated LFTs CHAOY (generalized anxiety disorder) Gallbladder sludge GERD (gastroesophageal [...] voices. Endocrine: The patie (more content not included)...[facility] 11-24-2023 Telephone encounter Note* Telephone Encounter - Cecilia Bishop LPN - 11/24/2023 11:28 AM EDT Pt notified of results and provider's message. Cecilia Bishop LPN [facility]05-14-2024 Miscellaneous Notes* Telephone Encounter - Cecilia Bishop LPN - 11/24/2023 11:28 AM EDT Pt notified of results and provider's message. Cecilia Bishop LPN * Telephone Encounter - Mai Brandt APRN.CNP - 11/24/2023 10:59 AM EDT Urine culture reveals bacterial growth. The Macrobid prescribed is appropriate. Please complete allof the antibiotic. Follow up with your PCP for continued and/or worsening symptoms. Please advise patient documented in this encounterPromedica [facility]05-14-2024 Telephone encounter Note * Telephone Encounter - Mai Brandt APRN.CNP - 11/24/2023 10:59 AM EDT Urine culture reveals bacterial growth. The Macrobid prescribed is appropriate. Please complete allof the antibiotic. Follow up with your PCP for continued and/or worsening symptoms. Please advise patient [facility]05-12-2024 History of Present illness Narrative* Jessica An APRN.CNP - 11/22/2023 8:12 AM EDT CC: Patient [...] symptoms occur. Patient agreeable to treatment plan. Jessica An APRN.JING documented in this encounterPromedica [facility]03-14-2024 History of Present illness Narrative* Jessica An APRN.CNP - 09/24/2023 9:25 AM EDT CC: Patient [...] All documentation was reviewed and agreed upon. Jessica An APRN.JING documented in this encounterPromedica [facility]07-30-2023 History of Present illness Narrative* Padmini Braun PA-C - 02/08/2023 8:41 AM EDT This note was created using Reflexis Systemsriter. Subjective Ling Dias is a 52 year [...] CAP Padmini Braun PA-C documented in this encounterPromedica [facility]oria [facility] HospitalEvaluation + Plan note Future Appointments Appointment Date:11/21/2021 10:40:00 AM Scheduled Provider:CHARLEE HUMPHRIES APRN - JING Location:[facility] Appointment Type:PC OV Future Scheduled Tests Laboratory* Thyroid Stimulating Hormone 11/20/21 * Free T4 11/20/21 * Pathology Cancer Registrar Request 09/02/21 * Complete Blood Count 11/20/21 * Lipid Profile 11/20/21 * Prothrombin Time - Panel 07/02/21 * Complete Metabolic Panel 11/20/21 [facility] Evaluation + Plan note Future Appointments Appointment Date:11/24/2022 10:40:00 AM Scheduled Provider:CHARLEE HUMPHRIES APRN - PRODUCT LINE MANAGER Location:[facility] Appointment Type:PC OV Follow Up Future [...] XR Hand Minimum 3 Views Right 12/05/21 [facility] Evaluation + Plan note Future Appointments Appointment Date:12/03/2023 09:30:00 AM Scheduled Provider: Location:[facility] Appointment Type:PC Nurse Lab Appointment Date:12/10/2023 10:40:00 AM Scheduled Provider:CHARLEE HUMPHRIES APRN, CNP Location:[facility] Appointment Type:PC OV Follow Up Future [...] Panel 12/10/23 * Complete Metabolic Panel 11/23/22 [facility] Evaluation + Plan note Future Appointments Appointment Date:06/26/2025 09:40:00 AM Scheduled Provider:CHARLEE HUMPHRIES APRN, CNP Location:[facility] Appointment Type: OV Future Scheduled Tests Laboratory* Helicobacter Pylori Antibody 06/17/24 * Magnesium Level 12/29/24 * Magnesium Level 05/27/24 * Thyroid Stimulating Hormone 06/27/25 * Thyroid Stimulating Hormone 12/29/24 * Thyroid Stimulating Hormone 07/09/24 * Free T4 06/27/25 * Free T4 12/29/24 * Free T4 07/09/24 * Complete Blood Count 06/27/25 * Complete Blood Count 12/29/24 * Complete Blood Count 07/09/24 * Complete Blood Count 06/17/24 * Lipid Profile 06/27/25 * Lipid Profile 12/29/24 * Lipid Profile 07/09/24 * Albumin/Creatinine Ratio, Random Urine 06/27/25 * Albumin/Creatinine Ratio, Random Urine 12/29/24 * Albumin/Creatinine Ratio, Random Urine 07/09/24 * PTH, Intact 06/27/25 * PTH, Intact 12/29/24 * Vitamin D Level 06/27/25 * Vitamin D Level 12/29/24 * Vitamin D Level 07/09/24 * Complete Metabolic Panel 06/27/25 * Complete Metabolic Panel 12/29/24 * Complete Metabolic Panel 07/09/24 Radiology* XR Upper GI 06/17/24 [facility] Evaluation noteNo assessment information available [facility] Work Phone: Evaluation note* Diagnosis Urinary frequency- Primary documented in this encounter [facility] note* Diagnosis Rhinosinusitis- Primary Unspecified sinusitis (chronic) documented in this encounter [facility] note* Diagnosis Urinary frequency- Primary documented in this encounter [facility] note* Diagnosis Screen for colon cancer- Primary Special screening for malignant neoplasms, colon documented in this encounter [facility] note* Diagnosis Acute UTI- Primary Urinary tract infection, site not specified Burning with urination Dysuria [facility] Diagnosis Urinary frequency- Primary [facility]* Diagnosis Family history of breast cancer in mother- Primary Family history of malignant neoplasm of breast Screen for colon cancer Special screening for malignant neoplasms, colon [facility]* Diagnosis Urinary frequency- Primary Acute UTI Urinary tract infection, site not specified documented in this encounter [facility] note* Diagnosis Rhinosinusitis- Primary Unspecified sinusitis (chronic) Exposure to Streptococcal pharyngitis Contact with or exposure to other communicable diseases [facility] Narrative No data available for this section [facility] Discharge instructions No data available for this section [facility] Progress note No data available for this section [facility] Reason for referral (narrative)* Outpatient Procedure (Routine) - Authorized Specialty Diagnoses / Procedures Referred By Contac t Referred To Contact [facility] Diagnoses Screen for colon cancer Procedures COLONOSCOPY SCREENING COLONOSCOPY FLX DX W/COLLJ SPEC WHEN Radha Sood APRN.CNP [address] [address] [facility] [address] [address] Referral ID Status Reason Start Date Expiration Date Visits Requested Visits Authorized [id number] Authorized Auto-Generat ed Referral 03/29/2024 03/29/2025 1 1 [facility] for referral (narrative)* Outpatient Procedure (Routine) - Closed Specialty Diagnoses / Procedures Referred By Contac t Referred To Contact [facility] Diagnoses Screen for colon cancer Procedures COLONOSCOPY SCREENING COLONOSCOPY FLX DX W/COLLJ SPEC WHEN Radha Sood APRN.CNP [address] [place] [address] [facility] [place] [id number] Referral ID Status Reason Start Date Expiration Date V isits Requested Visits Authorized [id number] Closed Auto-Generate d Referral 05/12/2024 07/12/2024 1 1 [facility] for referral (narrative)No reason for referral information availableWPremier Health Work Phone: Reason for visit Narrative* Diagnostic Procedure Only (Urgent) - Closed Specialty Diagnoses / Procedures Referred By Contac t Referred To Contact XR IMAGING Diagnoses Injury of toe on left foot, initial encounter Procedures XR TOE AP/LAT/OBL LEFT RADEX TOE MINIMUM 2 VIEWS Mehul Neves APRN.PRODUCT LINE MANAGER [address] [place] [address] [place] [address] Referral ID Status Reason Start Date Expiration Date V isits Requested Visits Authorized [id number] Closed Auto-Generate d Referral 05/02/2023 05/31/2024 1 1 [facility] Procedure (Routine) - Closed Specialty Diagnoses / Procedures Referred By Tesfaye t Referred To Contact [facility] Diagnoses Screen for colon cancer Procedures COLONOSCOPY SCREENING COLONOSCOPY FLX DX W/COLLJ SPEC WHEN Radha Sood, TAYLOR.PRODUCT LINE MANAGER [address] [place] [address] [facility] [address] [place] [address] Referral ID Status Reason Start Date Expiration Date V isits Requested Visits Authorized [id number] Closed Auto-Generate d Referral 05/12/2024 07/12/2024 1 1 [facility] Chief Complaint and Reason for Visit [...] Date HTN (hypertension) June 09, 2024 4:55pm Chief Complaint Admit Date UTI September 22, 2024 5:2 5pm LABS December 24, 2024 8:01 am Advance Directives No Advanced Directives Records Found Advance Directive Response Recorded Date/ Time Living Will No April 19 0 8:10am Power of Director Corporate Communications No April 19 8:10am Advance Directive Response Recorded Date/ Time Living Will No April 19 0 7:10am Power of Director Corporate Communications No April 19 7:10am Advance Directive Response Recorded Date/ Time Living Will No June 09 6:33pm Do you have a Healthcare Pow er of Director Corporate Communications? Yes June 09, 2024 6:33pm Name of Medical Power of Director Corporate Communications David Castillo y June 09, 2024 6:33pm Summary Purpose Family History No Family History Records Found Additional Source Comments Goals (unrecognized section and content) Goals may be documented in a n alternate section INFORMATION SOURCE (unrecogn ized section and content) DATE CREATED AUTHOR [facility] DATE CREATED AUTHOR AUTHOR'S ORGANIZ ATION 09/28/2023 [facility] DATE CREATED AUTHOR AUTHOR'S ORGANIZ ATION 06/26/2024 [facility] DATE CREATED AUTHOR AUTHOR'S ORGANIZ ATION 01/01/2025 [facility] DATE CREATED AUTHOR AUTHOR'S ORGANIZ ATION 02/05/2025 [facility] DATE CREATED AUTHOR AUTHOR'S ORGANIZ ATION 02/27/2025 [facility] Care Team (unrecognized sect ion and content) Care Team Personnel Name: CHARLEE HUMPHRIES KILN DOOR BUILDER - PRODUCT LINE MANAGER Position: P4 [employer] Main Inspector Member Role: Primary Care Physician Address: Address: [address] [place] [address]- [place] Care Team Related Persons Name: DAVID DIAS Address: Home [address] [place] [phone] [place] Care Teams (unrecognized sec tion and content) Team Status: Active Member Role Status Dates Charlee Humphries SHELL SORTER, SHELL SORTER-C Family Provider Activ e Charlee Humphries SHELL SORTER, SHELL SORTER-C Primary Care Provider Active Team Status: Inactive Member Role Status Dates Charlee Humphries SHELL SORTER, SHELL SORTER-C Primary Care Provider, Attending Provider Active Rail Car Unloader Relationship Specialty Start Date End Date Charlee Humphries CNP [address] [place] [id number] PCP - General Family Medicine 04/26/10 Team Status: Inactive Member Role Status Dates Charlee Humphries SHELL SORTER, SHELL SORTER-C Primary Care Provider, Attending Provider, Referring Provider Active Rail Car Unloader Relationship Specialty Start Date End Date Charlee Humphries CNP [address] [place] [id number] PCP - General Family Medicine 04/26/10 Rail Car Unloader Relationship Specialty Start Date End Date Charlee Humphries CNP [address] [place] [id number] PCP - General Family Medicine 04/26/10 Rail Car Unloader Relationship Specialty Start Date End Date Charlee Humphries, JING [address] [place] [id number] PCP - General Family Medicine 04/26/10 Rail Car Unloader Relationship Specialty Start Date End Date Charlee Humphries, JING [address] [place] [id number] PCP - General Family Medicine 04/26/10 Rail Car Unloader Relationship Specialty Start Date End Date Charlee Humphries, JING [address] [place] [id number] PCP - General Family Medicine 04/26/10 Rail Car Unloader Relationship Specialty Start Date End Date Charlee Humphries, JING [address] [place], [place] [id number] PCP - General Family Medicine 04/26/10 Rail Car Unloader Relationship Specialty Start Date End Date Charlee Humphries, JING [address] [place] [id number] PCP - General Family Medicine 04/26/10 Rail Car Unloader Relationship Specialty Start Date End Date Charlee Humphries, PRODUCT LINE MANAGER [address] [place] [id number] PCP - General Family Medicine 04/26/10 Team Status: Active Member Role Status Dates Charlee Humphries SHELL SORTER, SHELL SORTER-C Primary Care Provider Active Team Status: Inactive Member Role Status Dates Charlee Humphries SHELL SORTER, SHELL SORTER-C Primary Care Provider Active Start: June 092023 [...] Active Member Role Status Dates Charlee Humphries SHELL SORTER, SHELL SORTER-C Primary Care Provider Active Start: June 102023 [...] Member Role Status Dates Charlee Humphries NP, SHELL SORTER-C Primary Care Provider Active Start: June 112023 [...] Inactive Member Role Status Dates Charlee Humphries SHELL SORTER, SHELL SORTER-C Primary Care Provider Active Start: June 252023 End: June 25, 2024 Charlee Humphries SHELL SORTER, SHELL SORTER-C Attending Provider Active Start: June End: June 25, 2024 Charlee Humphries SHELL SORTER, SHELL SORTER-C Referring Provider Active Start: June End: June 25, 2024 Team Status: Inactive Member Role Status Dates Charlee Humphries SHELL SORTER, SHELL SORTER-C Primary Care Provider Active Start: June 272023 End: June 27, 2024 Charlee Humphries SHELL SORTER, SHELL SORTER-C Attending Provider Active Start: June End: June 27, 2024 Charlee Humphries SHELL SORTER, SHELL SORTER-C Referring Provider Active Start: June End: June 27, 2024 Team Status: Inactive Member Role Status Dates Charlee Humphries NP, SHELL SORTER-C Primary Care Provider Active Start: September 22, 2024 End: September 22, 2024 Dr. Anne Ridley MD Attending Provider Active Start: September 22, 2024 End: September 22, 2024 Dr. Anne Ridley MD Referring Provider Active Start: September 22, 2024 End: September 22, 2024 Team Status: Inactive Member Role Status Dates Charlee Humphries SHELL SORTER, SHELL SORTER-C Primary Care Provider Active Start: December 24, 2024 End: December 24, 2024 Charlee Humphries NP, SHELL SORTER-C Attending Provider Ac tive Start: December 24, 2024 End: December 24, 2024 Charlee Humphries SHELL SORTER, SHELL SORTER-C Referring Provider Ac tive Start: December 24, 2024 End: December 24, 2024 Source Comments (unrecognize d section and content) In the event this informatio n is protected by the Federal Confidentiality of Alcohol and Drug Abuse Patient Records regulations: The Federal rules restrict any use of the information to criminally investigate or prosecute any alcohol or drug abuse patient.[facility] the event this information is protected by the Federal Confidentiality of Alcohol and Drug Abuse Patient Records regulations: The Federal rules restrict any use of the information to criminally investigate or prosecute any alcohol or drug abuse patient.[facility] the event this information is protected by the Federal Confidentiality of Alcohol and Drug Abuse Patient Records regulations: The Federal rules restrict any use of the information to criminally investigate or prosecute any alcohol or drug abuse patient.[facility] the event this information is protected by the Federal Confidentiality of Alcohol and Drug Abuse Patient Records regulations: The Federal rules restrict any use of the information to criminally investigate or prosecute any alcohol or drug abuse patient.[facility] the event this information is protected by the Federal Confidentiality of Alcohol and Drug Abuse Patient Records regulations: The Federal rules restrict any use of the information to criminally investigate or prosecute any alcohol or drug abuse patient.[facility] the event this information is protected by the Federal Confidentiality of Alcohol and Drug Abuse Patient Records regulations: The Federal rules restrict any use of the information to criminally investigate or prosecute any alcohol or drug abuse patient.[facility] the event this information is protected by the Federal Confidentiality of Alcohol and Drug Abuse Patient Records regulations: The Federal rules restrict any use of the information to criminally investigate or prosecute any alcohol or drug abuse patient.[facility] the event this information is protected by the Federal Confidentiality of Alcohol and Drug Abuse Patient Records regulations: The Federal rules restrict any use of the information to criminally investigate or prosecute any alcohol or drug abuse patient.[facility] the event this information is protected by the Federal Confidentiality of Alcohol and Drug Abuse Patient Records regulations: The Federal rules restrict any use of the information to criminally investigate or prosecute any alcohol or drug abuse patient.[facility] the event this information is protected by the Federal Confidentiality of Alcohol and Drug Abuse Patient Records regulations: The Federal rules restrict any use of the information to criminally investigate or prosecute any alcohol or drug abuse patient.[facility] the event this information is protected by the Federal Confidentiality of Alcohol and Drug Abuse Patient Records regulations: The Federal rules restrict any use of the information to criminally investigate or prosecute any alcohol or drug abuse patient.[facility] the event this information is protected by the Federal Confidentiality of Alcohol and Drug Abuse Patient Records regulations: The Federal rules restrict any use of the information to criminally investigate or prosecute any alcohol or drug abuse patient.[facility] Reason for Visit (unrecogniz ed section [...] Frequency and burnin g x 1 day Reason Comments Nasal Congestion Cough, ear pain x 6 daysHad headache and runny nose to start FOR RECORDS PERTAINING TO PATIENTS WHO ARE [...] BE BASED ON THE PRIMARY CLINICAL RECORDS. [facility] [place] [facility]. provides no warranty or guarantee of the accuracy or completeness of information in this document.
== END 2025-03-31 17:50 | disposition left against medical advice (07) ==
LOC: ED 17:54
PROVIDERS: PCP Nurse Practitioner Family
DX: Z53.21 Procedure and treatment not carried out due to patient leaving prior to being seen by health care provider (principal)

== ENCOUNTER 2025-05-06 19:56 | Emergency (ER) | payer BC, SELFPAY ==
[2025-05-06 19:56] VITALS: BP 201/119; BP 204/121; PULSE 123; RESP 18; RESP 20; TEMP 36.6; O2SAT 98; BMI 41.1
--- NOTE | 2025-05-06 20:43 | EKG12_ITS ---
Test Reason : CP Blood Pressure : */* mmHG Vent. Rate : 93 BPM Atrial Rate : 93 BPM P-R Int : 154 ms QRS Dur : 88 ms QT Int : 362 ms P-R-T Axes : 36 -16 21 degrees QTcB Int : 450 ms Normal sinus rhythm Moderate voltage criteria for LVH, may be normal variant ( R in aVL , Jas product ) Borderline ECG Confirmed by ISMAEL AMAYA ([id number]), newspaper managing editor JACQUI ANDERSON ([id number]) on 05/08/2025 6:57:29 AM Referred By: PK Confirmed By: ISMAEL AMAYA
--- NOTE | 2025-05-06 20:44 | RAD_ITS ---
PROCEDURE: CHEST PA AND LATERAL 05/06/2025 REASON FOR EXAM: CHEST PAIN TECHNIQUE: Procedure Code: RADCXR Modality: DX Procedure: CHEST PA AND LATERAL FINDINGS: The lungs are clear. The cardiomediastinal silhouette appears unremarkable. No acute osseous abnormality. RAD/Chest PA and Lateral IMPRESSION: As above. Reading Location: [id number]
--- OUTSIDE RECORDS SUMMARY | 2025-05-06 20:47 | XMS RPT_ITS | CCD ---
Author Organization [facility] Care Team Providers Care Liquor Tester Name Role Phone CHARLEE LAGOS APRN, CNP Primary Care Phys ician CHARLEE HUMPHRIES Consulting Unavailable CHARLEE HUMPHRIES Referring Unavailable ELMA LUIS MD Admitting Unavailable ELMA LUIS MD Attending Unavailable ELMA LUIS MD Primary Care Unavailable PROVIDER, UNKNOWN Consulting Unavailable Charlee Humphries CNP Primary Care Provider CHARLEE LAGOS APRN, CNP Attending U navailalexia HUMPHRIES APRN - CHARLEE CH Primary Care U bartolo ADAMS MD, DR MCGRATH Attending Unavailabl e YANDEL VAZQUEZ - CHARLEE CH Primary Care U navailable Charlee Humphries CNP [...] [place] Attending Provider Kwame CLINTON, Dr. Ghasnhyam De La Cruz Other Provider Yandel BARDALES-CCharlee Attending Provider Yandel PATIENT FLOW COORDINATOR-CCharlee Referring Provider Dr. Anne Ridley MD Attending Provider Dr. Anne Ridley MD Referring Provider Yandel PATIENT FLOW COORDINATOR-C, Charlee Pappas Primary Care Provi octavio Guadalupe PATIENT FLOW COORDINATOR-C, Charlee Pappas Attending Provider Yandel PATIENT FLOW COORDINATOR-C, Charlee Pappas Referring Provider YANDEL VAULT PERSON - SIGNAL OPERATOR, CHARLEE Soto Primary Care U navailable SEFFENS VAULT PERSON-SIGNAL OPERATOR, CATHERINE Attending Unavai lable YANDEL VAULT PERSON - SIGNAL OPERATOR, CHARLEE Soto Primary Care U navailable YANDEL VAULT PERSON - SIGNAL OPERATOR, CHARLEE Soto Attending U navailable YANDEL, CHARLEE Soto Primary Care Unavailable MAXIMINO JULIAN Attending Unavailable YANDELCHARLEE CELESTIN Primary Care Unavailable MAI BRANDT Attending Unavailable YANDELCHARLEE HAMILTON Primary Care Unavailable YANDEL, CHARLEE Soto Primary Care Unavailable YANDELCHARLEE CELESTIN Primary Care Unavailable Yandel PATIENT FLOW COORDINATOR, Charlee Pappas Primary Care Unav ailable Ta, Achintya Admitting Unavailable Ta, Achintya Consulting Unavailable Ta, Achintya Attending Unavailable Ghanshyam Puente Attending Unavailable Ghanshyam Puente Consulting Unavailable Guadalupe PATIENT FLOW COORDINATOR, Charlee Pappas Attending Unav ailable Guadalupe PATIENT FLOW COORDINATOR, Charlee Pappas Referring Unav ailable Yandel PATIENT FLOW COORDINATOR, Charlee Pappas Primary Care Unav ailable Guadalupe PATIENT FLOW COORDINATOR, Charlee Pappas Primary Care Unav ailable Provider, Ed Physician Attending Unavailab le Yandel PATIENT FLOW COORDINATOR, Charlee Pappas Attending Unav ailable Guadalupe PATIENT FLOW COORDINATOR, Charlee Pappas Referring Unav ailable Guadalupe PATIENT FLOW COORDINATOR, Charlee Pappas Primary Care Unav ailAnne Conte Attending Unavailable Anne Ridley Referring Unavailable Guadalupe PATIENT FLOW COORDINATOR, Charlee Pappas Primary Care Unav Ghanshyam Shay Attending Unavailable Ta, Achintya Admitting Unavailable Ta, Achintya Consulting Unavailable Guadalupe PATIENT FLOW COORDINATOR, Charlee Pappas Primary Care Unav ailable Yandel PATIENT FLOW COORDINATOR, Charlee Pappas Attending Unav ailable Guadalupe PATIENT FLOW COORDINATOR, Charlee Pappas Referring Unav ailable Guadalupe PATIENT FLOW COORDINATOR, Charlee Pappas Primary Care Unav ailable Guadalupe PATIENT FLOW COORDINATOR-CCharlee Primary Care Physi phil Yandel ZAMORA, Charlee Pappas Attending Physicia n Khai CLINTON, Dr. Rodríguez Attending Physician Provider, Ed Physician Attending Physician Jae gonzales Provider, Ed Physician Emergency Department Phys ician Unavailable Medications Current Medications Medication Drug Class(es) Dates Sig (Normalized) Sig (Original) acetaminophen 325 mg oral capsule (11 sources) Start: 05-18-2019 take 1 capsule by mouth every six hours acetaminophen 325 mg oral capsule Dose : 650 mg =, Oral, q6h, # 20 cap(s), 0 Refill(s), Pharmacy: [facility]/pharmacy #[id number] Start Date: 05/18/19 Status: Ordered Quantity: 20.0 Unit: cap(s) Repeat number: 1 take 2 capsules by m outh every six hours as needed acetaminophen 325 mg cap Take 2 capsules by mouth every 6 hours as needed for pain. Active amLODIPine 5 mg oral tablet (17 sources) Dihydropyridine Calcium Channel Ronan Start: 06-09-2024 End: 06-24-2025 take 1 tablet by mouth once daily Start: 06-11-2023 End: 12-08-2023 amLODIPine 5 mg oral tablet Dose : 5 mg = 1 tab(s), Oral, qDay, # 90 tab(s), 1 Refill(s), Pharmacy: [facility], 168.5, cm, 06/11/23 10:39:00 EST, Height, kg, 06/11/23 10:39:00 EST, Dosing Weight Start Date: 06/11/23 Stop Date: 12/08/23 Status: Ordered Start: 05-26-2022 End: 11-22-2022 amLODIPine 5 mg oral tablet Dose : 5 mg = 1 tab(s), Oral, qDay, X 90 day(s), # 90 tab(s), 1 Refill(s), 11/22/22 11:20:00 EDT, Pharmacy: [facility], HTN, goal below 140/90, 172, cm, 05/26/22 10:52:00 EST, Height, kg, 05/26/22 10:52:00 EST, Dosing Weight Start Date: 05/26/22 Stop Date: 11/22/22 Status: Ordered Start: 05-23-2021 End: 02-17-2022 amLODIPine 5 mg oral tablet Dose : 5 mg = 1 tab(s), Oral, qDay, X 90 day(s), # 90 tab(s), 2 Refill(s), 02/17/22 11:37:00 EDT, Pharmacy: [facility], HTN, goal below 140/90, 171, cm, 05/23/21 10:37:00 EST, Height, kg, 05/23/21 10:37:00 EST, Dosing Weight Start Date: 05/23/21 Stop Date: 02/17/22 Status: Ordered Comment on above: Take 5 mg by mouth o nce daily. amoxicillin 875 mg / clavulanate 125 mg oral tablet (5 sources) Penicillin-class Antibacterial Start: End: take 1 tablet by mouth twice daily amoxicillin-clavul anate potassium (AUGMENTIN) 875-125 mg per tablet Take 1 tablet by mouth two times a day for 5 days. 10 tablet 02/26/2025 03/03/2025 Active Start: 06-09-2024 End: 06-11-2024 Amoxicillin-Pot Clavulanate 875-125 mg tablet Discontinued 1 {tbl} PO Q12H June 09, 2024 1:00am June 11, 2024 3:26pm sinus infection Start: 09-24-2023 End: 10-01-2023 take 1 tablet by mouth twice daily amoxicillin-clavulanate potassium (AUGMENTIN) 875-125 mg per tablet Indications: Rhinosinusitis Take 1 tablet by mouth two times a day for 7 days. 14 tablet 0 09/24/2023 10/01/2023 Active Comment on above: Take 1 tablet by dara two times a day for 7 days. busPIRone hydrochloride 10 mg oral tablet (20 sources) Start: 12-26-2024 busPIRone 10 mg oral tablet Dose : 10 mg = 1 tab(s), Oral, TID, PRN Anxiety, As needed, # 270 tab(s), 1 Refill(s), Pharmacy: [facility], CHAYO (generalized anxiety disorder), 173, cm, 12/26/24 9:39:00 EDT, Height, kg, 12/26/24 9:39:00 EDT, Dosing Weight Start Date: 12/26/24 Status: Ordered Quantity: 270.0 Unit: tab(s) Repeat number: 2 Indications: Generalized anxiety disorder; Start: 06-11-2023 busPIRone 10 m g oral tablet Dose : 10 mg = 1 tab(s), Oral, TID, PRN Anxiety, As needed, # 270 tab(s), 1 Refill(s), Pharmacy: [facility], CHAYO (generalized anxiety disorder), 168.5, cm, 06/11/23 10:39:00 EST, Height, kg, 06/11/23 10:39:00 EST, Dosing Weight Start Date: 06/11/23 Status: Ordered Start: 05-26-2022 End: 07-25-2022 busPIRone 10 mg oral tablet Dose : 10 mg = 1 tab(s), Oral, TID, PRN Anxiety, As needed, # 270 tab(s), 1 Refill(s), Pharmacy: [facility], CHAYO (generalized anxiety disorder), 172, cm, 05/26/22 10:52:00 EST, Height, kg, 05/26/22 10:52:00 EST, Dosing Weight Start Date: 05/26/22 Stop Date: 07/25/22 Status: Ordered Start: 05-23-2021 End: 08-21-2021 busPIRone 10 mg oral tablet Dose : 10 mg = 1 tab(s), Oral, TID, PRN Anxiety, As needed, # 90 tab(s), 2 Refill(s), Pharmacy: [facility], CHAYO (generalized anxiety disorder), 171, cm, 05/23/21 10:37:00 EST, Height, kg, 05/23/21 10:37:00 EST, Dosing Weight Start Date: 05/23/21 Stop Date: 08/21/21 Status: Ordered Start: 04-19-2020 End: 06-09-2024 take 2 tablets by mouth at bedtime as needed Start: 04-19-2020 take 10 mg by mouth [...] Comment on above: Take 1 capsule by [facility] twice daily. cholecalciferol 1.25 mg oral capsule (9 sources) Vitamin D Start: 12-27-19 End: 06-24-20 take 1 capsule by mouth once, then take 1 capsule by mouth every other week cholecalciferol 1250 mcg (50,000 intl units) oral capsule Dose : 50,000 International_Unit = 1 cap(s), Oral, every other week, # 7 cap(s), 1 Refill(s), Pharmacy: [facility], Vitamin D deficiency, 173, cm, [...] qmonth, # 4 cap(s), 1 Refill(s), Pharmacy: [facility], Vitamin D deficiency, 168.5, cm, 06/11/23 10:39:00 EST, Height, kg, 06/11/23 10:39:00 EST, Dosing Weight Start Date: 06/11/23 Stop Date: 12/08/23 Status: Ordered take 1 capsule by [facility] every month cholecalciferol, Vitamin D3, (VITAMIN D3) [...] qAM, # 16 gram(s), 0 Refill(s), Pharmacy: [facility], 173, cm, 01/30/25 15:14:00 EDT, Height, kg, 01/30/25 15:14:00 EDT, Dosing Weight Start Date: 01/30/25 Stop Date: 02/06/25 Status: Ordered Quantity: 16.0 Unit: g Repeat number: 1 12 hr guaiFENesin 600 mg extended release oral tablet (8 sources) Start: 06-09-2024 take 1 tablet by mouth twice daily Start: 08-15-2019 End: 03-29-2024 take 2 tablets by mouth twice daily guaiFENesin (MUCINEX) 600 mg 12 hr tablet Indications: Influenza B Take 2 tablets by mouth twice daily. 60 tablet 08/15/2019 03/29/2024 Discontinued (Discontinued by Patient) Comment on above: Take 2 tablets by mo [facility] twice daily. hydroCHLOROthiazide 12.5 mg oral tablet (17 sources) Thiazide Diuretic Start: Hydrochlorothiazide Active 0 [...] qDay, # 90 tab(s), 1 Refill(s), Pharmacy: [facility], Hypothyroidism in adult, 173, cm, 12/26/24 9:39:00 EDT, Height, kg, 12/26/24 9:39:00 EDT, Dosing Weight Start Date: 12/26/24 Status: Ordered Quantity: 90.0 Unit: tab(s) Repeat number: 2 Indications: Hypothyroidism, unspecified; Start: 06-11-2023 levothyroxine 50 mcg (0.05 mg) oral tablet Dose : 50 mcg = 1 tab(s), Oral, qDay, # 90 tab(s), 1 Refill(s), Pharmacy: [facility], Hypothyroidism in adult, 168.5, cm, 06/11/23 10:39:00 EST, Height, kg, 06/11/23 10:39:00 EST, Dosing Weight Start Date: 06/11/23 Status: Ordered Start: 05-26-2022 End: 11-22-2022 levothyroxine 50 mcg (0.05 m g) oral tablet Dose : 50 mcg = 1 tab(s), Oral, qDay, # 90 tab(s), 1 Refill(s), Pharmacy: [facility], Hypothyroidism in adult, 172, cm, 05/26/22 10:52:00 EST, Height, kg, 05/26/22 10:52:00 EST, Dosing Weight Start Date: 05/26/22 Stop Date: 11/22/22 Status: Ordered Start: 05-23-2021 End: 02-17-2022 levothyroxine 50 mcg (0.05 m g) oral tablet Dose : 50 mcg = 1 tab(s), Oral, qDay, # 90 tab(s), 2 Refill(s), Pharmacy: [facility], Hypothyroidism in adult, 171, cm, 05/23/21 10:37:00 EST, Height, kg, 05/23/21 10:37:00 EST, Dosing Weight Start Date: 05/23/21 Stop Date: 02/17/22 Status: Ordered Start: 04-19-2020 take 2 tablets by mo uth once daily Start: 04-19-2020 take 25 ug by mouth once daily Levothyroxine Active 25 MCG PO DAILY April 18, 2020 11:00pm take 1 tablet by dara th once daily before breakfast levothyroxine (LEVOXYL) 50 mcg tablet Take 50 mcg by mouth daily before breakfast. Active Comment on above: Take 50 mcg by mouth daily before breakfast. losartan potassium 100 mg oral tablet (17 sources) Angiotensin 2 Receptor Ronan Start: 06-09-2024 take 1 tablet by mouth once daily Start: 06-11-2023 losartan 100 m g oral tablet Dose : 100 mg = 1 tab(s), Oral, qDay, # 90 tab(s), 1 Refill(s), Pharmacy: [facility], HTN, goal below 140/90, 168.5, cm, 06/11/23 10:39:00 EST, Height, kg, 06/11/23 10:39:00 EST, Dosing Weight Start Date: 06/11/23 Status: Ordered Start: 05-26-2022 End: 11-22-2022 losartan 100 mg oral tablet Dose : 100 mg = 1 tab(s), Oral, qDay, # 90 tab(s), 1 Refill(s), Pharmacy: [facility], HTN, goal below 140/90, 172, cm, 05/26/22 10:52:00 EST, Height, kg, 05/26/22 10:52:00 EST, Dosing Weight Start Date: 05/26/22 Stop Date: 11/22/22 Status: Ordered Start: 05-23-2021 End: 02-17-2022 losartan 100 mg oral tablet Dose : 100 mg = 1 tab(s), Oral, qDay, # 90 tab(s), 2 Refill(s), Pharmacy: [facility], HTN, goal below 140/90, 171, [...] on above: Take 1 capsule by mo [facility] twice daily with meals for 5 days. omeprazole 40 mg delayed release oral capsule (17 sources) Proton Pump Inhibitor Start: 06-09-2024 End: 06-24-2025 take 1 capsule by mouth once daily Start: 06-11-2023 omeprazole 40 mg oral delayed release capsule Dose : 40 mg = 1 cap(s), Oral, qDay, # 90 cap(s), 1 Refill(s), Pharmacy: [facility], GERD (gastroesophageal reflux disease), 168.5, cm, 06/11/23 10:39:00 EST, Height, kg, 06/11/23 10:39:00 EST, Dosing Weight Start Date: 06/11/23 Status: Ordered Start: 05-26-2022 End: 11-22-2022 omeprazole 40 mg oral delaye d release capsule Dose : 40 mg = 1 cap(s), Oral, qDay, # 90 cap(s), 1 Refill(s), Pharmacy: [facility], GERD (gastroesophageal reflux disease), 172, cm, 05/26/22 10:52:00 EST, Height, kg, 05/26/22 10:52:00 EST, Dosing Weight Start Date: 05/26/22 Stop Date: 11/22/22 Status: Ordered Start: 05-23-2021 End: 02-17-2022 omeprazole 40 mg oral delaye d release capsule Dose : 40 mg = 1 cap(s), Oral, qDay, # 90 cap(s), 2 Refill(s), Pharmacy: [facility], GERD (gastroesophageal reflux disease), 171, [...] qDay, # 90 tab(s), 1 Refill(s), Pharmacy: [facility], 173, cm, 12/26/24 9:39:00 EDT, Height, kg, 12/26/24 9:39:00 EDT, Dosing Weight Start Date: 12/26/24 Status: Ordered Quantity: 90.0 Unit: tab(s) Repeat number: 2 Start: 06-09-2024 take 2 tablets by mo uth once daily Start: 06-11-2023 sertraline 50 mg oral tablet Dose : 50 mg = 1 tab(s), Oral, qDay, # 90 tab(s), 1 Refill(s), Pharmacy: [facility], 168.5, cm, 06/11/23 10:39:00 EST, Height, kg, 06/11/23 10:39:00 EST, Dosing Weight Start Date: 06/11/23 Status: Ordered Start: 05-26-2022 End: 11-22-2022 sertraline 50 mg oral tablet Dose : 50 mg = 1 tab(s), Oral, qDay, # 90 tab(s), 1 Refill(s), Pharmacy: [facility], 172, cm, 05/26/22 10:52:00 EST, Height, kg, 05/26/22 10:52:00 EST, Dosing Weight Start Date: 05/26/22 Stop Date: 11/22/22 Status: Ordered Start: 09-20-2021 End: 03-19-2022 sertraline 50 mg oral tablet Dose : 50 mg = 1 tab(s), Oral, qDay, # 90 tab(s), 1 Refill(s), Pharmacy: [facility], 172, cm, 08/30/21 10:20:00 EST, [...] qHS, # 90 tab(s), 1 Refill(s), Pharmacy: [facility], Insomnia, persistent, 173, cm, 12/26/24 9:39:00 EDT, Height, kg, 12/26/24 9:39:00 EDT, Dosing Weight Start Date: 12/26/24 Status: Ordered Quantity: 90.0 Unit: tab(s) Repeat number: 2 Indications: Insomnia, unspecified; Start: 06-11-2023 traZODone 50 m g oral tablet Dose : 50 mg = 1 tab(s), Oral, qHS, # 90 tab(s), 1 Refill(s), Pharmacy: [facility], Insomnia, persistent, 168.5, cm, 06/11/23 10:39:00 EST, Height, kg, 06/11/23 10:39:00 EST, Dosing Weight Start Date: 06/11/23 Status: Ordered Start: 05-26-2022 End: 11-22-2022 traZODone 50 mg oral tablet Dose : 50 mg = 1 tab(s), Oral, qHS, # 90 tab(s), 1 Refill(s), Pharmacy: [facility], Insomnia, persistent, 172, cm, 05/26/22 10:52:00 EST, Height, kg, 05/26/22 10:52:00 EST, Dosing Weight Start Date: 05/26/22 Stop Date: 11/22/22 Status: Ordered Start: 05-23-2021 End: 07-22-2021 traZODone 50 mg oral tablet Dose : 50 mg = 1 tab(s), Oral, qHS, # 30 tab(s), 1 Refill(s), Pharmacy: [facility], Insomnia, persistent, 171, cm, 05/23/21 10:37:00 EST, Height, kg, 05/23/21 10:37:00 EST, Dosing Weight Start Date: 05/23/21 Stop Date: 07/22/21 Status: Ordered 24 hr venlafaxine 150 mg extended release oral capsule (20 sources) Serotonin and Norepinephrine Reuptake Inhibitor Start: 06-09-2024 take 1 capsule by mouth once daily Start: 05-23-2021 End: 02-17-2022 venlafaxine 150 mg oral caps ule, extended release Dose : 150 mg = 1 cap(s), Oral, qDay, # 90 cap(s), 2 Refill(s), Pharmacy: [facility], CHAYO (generalized anxiety disorder), 171, [...] qDay, # 90 cap(s), 1 Refill(s), Pharmacy: [facility], CHAYO (generalized anxiety disorder), 168.5, cm, 06/11/23 10:39:00 EST, Height, kg, 06/11/23 10:39:00 EST, Dosing Weight Start Date: 06/11/23 Status: Ordered Comment on above: Take 1 capsule by [facility] once daily. Vitamin C 500 mg [...] day(s), # 5 EA, 0 Refill(s), Pharmacy: [facility], 173, cm, 01/30/25 15:14:00 EDT, Height, kg, 01/30/25 15:14:00 EDT, Dosing Weight Start Date: 01/30/25 Stop Date: 02/04/25 Status: Ordered Quantity: 5.0 Unit: EA Repeat number: 1 Completed/Discontinued Medications Medication Drug Class(es) Dates Sig (Normalized) Sig (Original) benzonatate 100 mg oral capsule (5 sources) Non-narcotic Antitussive Start: 0 End: 4 take 1 capsule by mouth three times daily as needed benzonatate (TESSALON PERLES) 100 mg capsule Indications: Influenza B Take 1 capsule by mouth three times daily as needed. 40 capsule 08/15/2019 03/29/2024 Discontinued (Discontinued by Patient) Comment on above: Take 1 capsule by [facility] three times daily as needed. betamethasone 0.5 mg/ml topical cream (5 sources) Corticosteroid Start: 9 End: 4 betamethasone dipropionate (DIPROSONE) 0.05 % cream Apply to affected area as directed. 03/15/2019 03/29/2024 Discontinued (Discontinued by Patient) Comment on above: Apply to affected ar ea as directed. hydroCHLOROthiazide 12.5 mg / lisinopril 10 mg oral tablet (8 sources) Thiazide Diuretic, Angiotensin Converting Enzyme Inhibitor Start: 4 End: 8 Lisinopril-Hydroc hlorothiazide 1 TABLET tablet Discontinued 1 {tbl} PO DAILY January 23, 2014 12:00am November 21, 2017 11:38am Start: 01-23-2014 End: 11-21-2017 take 1 tablet by mouth once daily Lisinopril-Hydrochlorothiazide Discontin ued 1 TABLET PO DAILY January 22, 2014 11:00pm November 21, 2017 10:38am lisinopril 5 mg oral tablet (13 sources) Angiotensin Converting Enzyme Inhibitor Start: 04-19-2020 [...] aily. meclizine hydrochloride 25 mg oral tablet (17 sources) Antiemetic Start: 06-30-2024 End: 12-27-2024 meclizine 25 mg oral tablet Dose : 25 mg = 1 tab(s), Oral, TID, PRN as needed for dizziness, # 60 tab(s), 5 Refill(s), Pharmacy: [facility], 173, cm, 06/30/24 9:48:00 EST, Height, kg, 06/30/24 9:48:00 EST, Dosing Weight Start Date: 06/30/24 Stop Date: 12/27/24 Status: Ordered Quantity: 60.0 Unit: tab(s) Repeat number: 6 Start: 06-09-2024 take 1 tablet by dara th once daily as needed for dizziness Start: 06-11-2023 End: 12-08-2023 meclizine 25 mg oral tablet Dose : 25 mg = 1 tab(s), Oral, TID, PRN as needed for dizziness, # 60 tab(s), 5 Refill(s), Pharmacy: [place] [id number], 168.5, cm, 06/11/23 10:39:00 EST, Height, kg, 06/11/23 10:39:00 EST, Dosing Weight Start Date: 06/11/23 Stop Date: 12/08/23 Status: Ordered Start: 03-06-2022 End: 09-02-2022 meclizine 25 mg oral tablet Dose : 25 mg = 1 tab(s), Oral, TID, PRN as needed for dizziness, # 60 tab(s), 5 Refill(s), Pharmacy: [facility], 172, cm, 03/06/22 11:12:00 EDT, Height, kg, 03/06/22 11:12:00 EDT, Dosing Weight Start Date: 03/06/22 Stop Date: 09/02/22 Status: Ordered Start: 05-23-2021 End: 12-19-2021 meclizine 25 mg oral tablet Dose : 25 mg = 1 tab(s), Oral, TID, PRN as needed for dizziness, # 60 tab(s), 6 Refill(s), Pharmacy: [facility], 171, cm, 05/23/21 10:37:00 EST, [...] Gastroesophageal reflux disease 11-10-2019 Chronic Essential hypertension (15 sources) Hypertensive disorder; Translations: [Essential (primary) hypertension] [...] Onset: 02-26-2025 02-26-2025 Episodic Nonspecific chest pain (8 sources) Chest pain; Translations: [Chest pain, unspecified] 11-21-2014 Episodic Nutritional deficiencies (3 sources) Vitamin D deficiency 05-26-2022 Chronic Other acquired deformities (3 sources) Spondylolysis 03-06-2022 Episodic Other connective tissue disease (3 sources) Tenosynovitis of left radial styloid 12-05-2021 Episodic Other connective tissue disease (1 source) Plantar fascial fibromatosis; Translations: [Plantar fasciitis] Onset: 03-31-2025 Episodic Other diseases of kidney and ureters [...] sources) Increased body mass index 11-10-2019 Episodic Residual codes; unclassified (1 source) Procedure and treatment not carried out due to patient leaving prior to being seen by health care provider; Translations: [Procedure and treatment not carried out due to patient leaving prior to being seen by health care provider] Onset: 04-03-2025 Episodic Spondylosis; intervertebral disc disorders; other back [...] Unclassified (4 sources) Patient encounter status 06-11-2023 Past or Other Problems Problem Classification Problem [...] breast cancer in mother] Onset: 07-08-2021 Episodic Urinary tract infections (6 sources) Acute urinary tract infection; Translations: [Urinary tract infection, site not specified] Onset: 10-03-2024 05-02-2024 Episodic Results Test Name Value Interpretation Reference Range Facility [facility] 03-31-2025 CNOV Office Visit ([facility]) LING DIAS ([id number]) 1970 F Date Time Provider Department 03/31/25 6:00 PM MAXIMINO JULIAN WOBRIANNA During your visit today, we recorded the following information about you: Temperature Pulse Respiration Blood pressure 98.2 degrees 95/minute 18/minute 175/129 Weight 122.9 kg Maximino Julian MD 03/31/2025 6:41 PM Signed [facility] Subjective Ling Caitlin Larissa is a 54 year old female. Patient presents with: Plantar Fasciitis: Bilateral, chronic Patient has had bilateral foot pain for the last 3 months. She has been seeing a technician inventory specialist for the last 2 months. She has had injections and x-rays and worn boots. She has had worsening pain in her feet for the last 2 weeks. She was unable to get in with her specialist or her PCP. She feels her foot hurt worse when wearing a walking boot. She is taking Tylenol and ibuprofen for pain. Pain is in the bottom arch of the foot. Left foot is worse than the right. She denies any new injury, change in activity, fever, swelling, redness, bruising, numbness. Review of Systems Objective BP (!) 175/129 Pulse 95 Temp 36.8 ?C (98.2 ?F) Resp 18 Wt 122.9 kg (270 lb 15.1 oz) LMP (LMP Unknown) SpO2 100% BMI 41.20 kg/m? Physical Exam Constitutional: General: She is not in acute distress. Cardiovascular: Pulses: Dorsalis pedis pulses are 2+ on the right side and 2+ on the left side. Feet: Right foot: Skin integrity: No ulcer. Left foot: Skin integrity: No ulcer. Comments: FOOT/ANKLE: bilateral. Swelling not present. No erythema, ecchymosis, or deformity. Range of motion: inversion - non-painful, eversion - non-painful, anterior drawer- non-painful. able to bear weight. Mildly antalgic gait. Palpation: Medial malleolus non-painful, lateral malleolus non-painful, Dorsal proximal midfoot - non-painful, dorsal metatarsals non-painful, posterior calcaneus non-painful. Toes non-painful. Tender from the insertion of the plantar fascia through the arch of the foot Neurological: Mental Status: She is alert. {ASSESSMENT/PLAN: 1. Plantar fasciitis - ICD9: 728.71, ICD10: M72.2 - PREDNISONE 10 MG TABLET taper. Reports prednisone has been previously tolerated without side effect. Lab work is not available but she reports her CKD is improved. She denies issues with hyperglycemia. Avoid NSAID's while on steroid treatment (Aleve, Motrin, Advil, ibuprofen, or naproxen). May take acetaminophen (tylenol) as needed for pain relief. We discussed repeating x-ray which is expected to be of low yield without change in activity or injury. She declines resuming her walking boot. Ice after activity. She reports her elevated blood pressure is secondary to pain. She was at the ER but unable to get treatment. Advised follow-up with podiatry or PCP. Maximino Julian MD Differential Diagnoses - Plantar fasciitis is more likely for the following reason(s): suggested by HANDP - Fracture is less likely for the following reason(s): HANDP not suggestive Procedures Allergies As of Date: 03/31/2025 (No Known Allergies) Date Reviewed: 03/31/2025 Reviewed by: Kamini Hall MA - Fully Assessed Reason for Visit: Plantar Fasciitis [1026] Cmt: Bilateral, chronic Primary Visit Diagnosis:Plantar fasciitis [M72.2] Order(s):predniSONE (DELTASONE) 10 mg tabletTake 4 tablets by mouth once daily for 3 days, THEN 2 tablets once daily for 3 days, THEN 1 tablet once daily for 1 day.Disp: 19 tabletRfl: 0 Prescriptions as of 03/31/2025 - predniSONE (DELTASONE) 10 mg tablet Take 4 tablets by mouth once daily for 3 days, THEN 2 tablets once daily for 3 days, THEN 1 tablet once daily for 1 day. - cholecalciferol, Vitamin D3, (VITAMIN D3) 1,250 [...] once daily. Problem List As Of Date 03/31/2025 Noted Resolved Family history of breast cancer in mother [Z80.*09/07/2015 Screen for colon cancer [Z12.11] 06/24/2024 Prescriptions ordered this encounter Disp Refills Start End PREDNISONE 10 MG TABLET 19 t* 0 03/31/2025 04/07/2025 Route: PO (more content not included)... Normal [facility] CNOVon 02-26-2025 CNOV Office Visit (WOUCA) LING DIAS ([id number]) 1970 F Date Time Provider Department 02/26/25 9:00 AM MAI BRANDT During your visit today, we recorded the following information about you: Temperature Pulse Respiration Blood pressure 97.3 degrees 94/minute 22/minute 136/81 Weight 122 kg Mai Brandt APRN.CNP 02/26/2025 9:26 AM Signed Adult Sinusitis Patient Education What is Sinusitis? Sinusitis [bwve-lgs-gogc-tis] is inflammation of the sinuses or swelling [...] help. You may be instructed to take [id number]-[id number] medications for symptoms. including fever reducers acetaminophen or ibuprofen, nasal saline spray, cough and cold preparations and decongestants as prescribed by the physician, nurse practitioner or physician assistant construction superintendent. Self-Care and Prevention: Rest Fluids for hydration Good hand washing Humidifier Avoid smoking and exposure to second hand smoke Avoid sick contacts Mai Brandt APRN.CNP 02/26/2025 9:34 AM Signed [facility] Ling Dias is a 54 year [...] X-2 Hyperten (more content not included)... Normal [facility] STREP A MOLECULAR (POC)on Procedural Control Valid [facility] Strep A (POCT) Negative Negative [facility] No Panel Informationon 01-30 Culture Urine >100,000 cfu/ml Multiple bacterial morphotypes present. Probable Contamination. Suggest recollection if clinically indicated. [facility] Work Phone: Anion gap in Serum or Plasma Ordered By: Charlee Humphries on 12-24-2024 Anion gap [Moles/Vol] 12 mmol/L 5- [facility] BUN/creatinine ratioOrdered By: Charlee Humphries on 12-24-2024 Urea nitrogen/Creatinine [Mass ratio] 24.2 mg/mg High 10- [facility] Bilirubin, totalOrdered By: Charlee Humphries on 12-24-2024 Bilirubin [Mass/Vol] 0.52 mg/dL 0.00-1.30 [facility] CBC-Complete Blood Cnt No Di ffon 12-24-2024 Erythrocyte distribution width (RBC) [Ratio] 14.3 % Normal 11.6-14.6 [facility] Comment on above: Order Comment: PLEAS E FAX LAB RESULTS Performed By: #### L 501.5200, L509.1000, L506.1001, L502.0250, L501.9520, L100.0500, L500.4100, L500.4050, L506.0400 #### [facility] [address] [place], [address] Hematocrit (Bld) [Volume fraction] 40.5 % Normal 37-47 [facility] Comment on above: Order Comment: PLEAS E FAX LAB RESULTS Performed By: #### L 501.5200, L509.1000, L506.1001, L502.0250, L501.9520, L100.0500, L500.4100, L500.4050, L506.0400 #### [facility] [address] [place], [address] Hemoglobin (Bld) [Mass/Vol] 13.5 g/dL Normal 12.0-15.0 [facility] Comment on above: Order Comment: PLEAS E FAX LAB RESULTS Performed By: #### L 501.5200, L509.1000, L506.1001, L502.0250, L501.9520, L100.0500, L500.4100, L500.4050, L506.0400 #### [facility] [address] [place], [address] MCH (RBC) [Entitic mass] 26.8 pg Low 27.0-32.0 [facility] Comment on above: Order Comment: PLEAS E FAX LAB RESULTS Performed By: #### L 501.5200, L509.1000, L506.1001, L502.0250, L501.9520, L100.0500, L500.4100, L500.4050, L506.0400 #### [facility] [address] [place], [address] MCHC (RBC) [Mass/Vol] 33.3 g/dL Normal 32-36 [facility] Comment on above: Order Comment: PLEAS E FAX LAB RESULTS Performed By: #### L 501.5200, L509.1000, L506.1001, L502.0250, L501.9520, L100.0500, L500.4100, L500.4050, L506.0400 #### [facility] [address] [place], [address] MCV (RBC) [Entitic vol] 80.5 fL Low 81-99 [facility] Comment on above: Order Comment: PLEAS E FAX LAB RESULTS Performed By: #### L 501.5200, L509.1000, L506.1001, L502.0250, L501.9520, L100.0500, L500.4100, L500.4050, L506.0400 #### [facility] [address] [place], [address] Platelet mean volume (Bld) [Entitic vol] 9.3 fL Normal 6.2-12.0 [facility] Comment on above: Order Comment: PLEAS E FAX LAB RESULTS Performed By: #### L 501.5200, L509.1000, L506.1001, L502.0250, L501.9520, L100.0500, L500.4100, L500.4050, L506.0400 #### [facility] [address] [place], [address] Platelets (Bld) [#/Vol] 288 10*3/uL Normal 150-450 [facility] Comment on above: Order Comment: PLEAS E FAX LAB RESULTS Performed By: #### L 501.5200, L509.1000, L506.1001, L502.0250, L501.9520, L100.0500, L500.4100, L500.4050, L506.0400 #### [facility] [address] [place], [address] RBC (Bld) [#/Vol] 5.03 10*6/uL Normal 4.2-5.4 [facility] Comment on above: Order Comment: PLEAS E FAX LAB RESULTS Performed By: #### L 501.5200, L509.1000, L506.1001, L502.0250, L501.9520, L100.0500, L500.4100, L500.4050, L506.0400 #### [facility] [address] [place], [address] RDW SD 42.1 fl Normal 35.1-43.9 [facility] Comment on above: Order Comment: PLEAS E FAX LAB RESULTS Performed By: #### L 501.5200, L509.1000, L506.1001, L502.0250, L501.9520, L100.0500, L500.4100, L500.4050, L506.0400 #### [facility] [address] [place], [address] WBC (Bld) [#/Vol] 6.3 10*3/uL Normal 4.4-11.0 [facility] Comment on above: Order Comment: PLEAS E FAX LAB RESULTS Performed By: #### L 501.5200, L509.1000, L506.1001, L502.0250, L501.9520, L100.0500, L500.4100, L500.4050, L506.0400 #### [facility] [address] [place], [place], [id number] Calculated very low density lipoprotein (VLDL) cholesterol measurementOrdered By: Charlee Humphries on 12-24-2024 Calculated very low density lipoprotein (VLDL) cholesterol measurement 24 mg/dL 5-40 [facility] Carbon dioxide, total [Moles /volume] in Central venous bloodOrdered By: Charlee Humphries on 12-24-2024 CO2 [Moles/Vol] 21.5 mmol/L 21.0-32.0 [facility] Chloride assayOrdered By: Milton Humphries on 12-24-2024 Chloride [Moles/Vol] 107 mmol/L 98-108 [facility] Comprehensive Metabolic Prof ilon 12-24-2024 Albumin [Mass/Vol] 4.0 g/dL Normal 3.5-5.0 [facility] Comment on above: Order Comment: PLEAS E FAX LAB RESULTS Performed By: #### L 500.4050, L100.0100 #### [facility] [address] [place], [address] Albumin/Globulin [Mass ratio] 1.1 {ratio} Normal 0.9-2.4 [facility] Comment on above: Order Comment: PLEAS E FAX LAB RESULTS Performed By: #### L 500.4050, L100.0100 #### [facility] [address] [place], [address] ALK PHOS 146 U/L High 35-104 [facility] Comment on above: Order Comment: PLEAS E FAX LAB RESULTS Performed By: #### L 500.4050, L100.0100 #### [facility] [address] [place], [address] ALT [Catalytic activity/Vol] 28 U/L Normal <=34 [facility] Comment on above: Order Comment: PLEAS E FAX LAB RESULTS Performed By: #### L 500.4050, L100.0100 #### [facility] [address] [place], [address] AST [Catalytic activity/Vol] 21 U/L Normal <=31 [facility] Comment on above: Order Comment: PLEAS E FAX LAB RESULTS Performed By: #### L 500.4050, L100.0100 #### [facility] [address] [place], [address] Bilirubin [Mass/Vol] 0.52 mg/dL Normal 0.00-1.30 [facility] Comment on above: Order Comment: PLEAS E FAX LAB RESULTS Performed By: #### L 500.4050, L100.0100 #### [facility] [address] [place], [address] BUN/CRE 24.2 RATIO High 10-20 [facility] Comment on above: Order Comment: PLEAS E FAX LAB RESULTS Performed By: #### L 500.4050, L100.0100 #### [facility] [address] [place], [address] Calcium [Mass/Vol] 8.9 mg/dL Normal 7.6-11.0 [facility] Comment on above: Order Comment: PLEAS E FAX LAB RESULTS Performed By: #### L 500.4050, L100.0100 #### [facility] [address] [place], [address] Chloride [Moles/Vol] 107 mmol/L Normal 98-108 [facility] Comment on above: Order Comment: PLEAS E FAX LAB RESULTS Performed By: #### L 500.4050, L100.0100 #### [facility] [address] [place], [address] CO2 [Moles/Vol] 21.5 mmol/L Normal 21.0-32.0 [facility] Comment on above: Order Comment: PLEAS E FAX LAB RESULTS Performed By: #### L 500.4050, L100.0100 #### [facility] [address] [place], [address] Creatinine [Mass/Vol] 0.80 mg/dL Normal 0.70-1.20 [facility] Comment on above: Order Comment: PLEAS E FAX LAB RESULTS Performed By: #### L 500.4050, L100.0100 #### [facility] [address] [place], [address] GAP 12 Normal 5-15 [facility] Comment on above: Order Comment: PLEAS E FAX LAB RESULTS Performed By: #### L 500.4050, L100.0100 #### [facility] [address] [place], [address] GFR/1.73 sq M.predicted among non-blacks MDRD (S/P/Bld) [Vol rate/Area] 88 mL/min/{1.73_m2} Normal >60 [facility] Comment on above: Order Comment: PLEAS E FAX LAB RESULTS Result Comment: mL/m in/1.73m2 CKD-EPI Creatinine Equation (2020) Performed By: #### L 500.4050, L100.0100 #### [facility] [address] [place], [address] Globulin (S) [Mass/Vol] 3.8 g/dL Normal 2.2-4.2 [facility] Comment on above: Order Comment: PLEAS E FAX LAB RESULTS Performed By: #### L 500.4050, L100.0100 #### [facility] [address] [place], [address] Glucose [Mass/Vol] 108 mg/dL High 70-99 [facility] Comment on above: Order Comment: PLEAS E FAX LAB RESULTS Performed By: #### L 500.4050, L100.0100 #### [facility] [address] [place], [address] Potassium [Moles/Vol] 4.1 mmol/L Normal 3.3-5.1 [facility] Comment on above: Order Comment: PLEAS E FAX LAB RESULTS Performed By: #### L 500.4050, L100.0100 #### [facility] [address] [place], [address] Sodium [Moles/Vol] 140 mmol/L Normal 133-145 [facility] Comment on above: Order Comment: PLEAS E FAX LAB RESULTS Performed By: #### L 500.4050, L100.0100 #### [facility] [address] [place], [address] T PROT 7.8 g/dL Normal 5.9-8.4 [facility] Comment on above: Order Comment: PLEAS E FAX LAB RESULTS Performed By: #### L 500.4050, L100.0100 #### [facility] [address] [place], [address] Urea nitrogen [Mass/Vol] 19 mg/dL Normal 4-19 [facility] Comment on above: Order Comment: PLEAS E FAX LAB RESULTS Performed By: #### L 500.4050, L100.0100 #### [facility] [address] [place], [address] Erythrocyte distribution wid th ratioOrdered By: Charlee Humphries on 12-24-2024 Erythrocyte distribution width (RBC) [Ratio] 14.3 % 11.6-14.6 [facility] Erythrocyte distribution wid th standard deviationOrdered By: Charlee Humphries on 12-24-2024 Erythrocyte distribution width (RBC) [Ratio] 42.1 fl 35.1-43.9 [facility] Glomerular filtration rate ( GFR) estimation/1.73 sq m using serum, plasma, or whole bOrdered By: Charlee Humphries on 12-24-2024 GFR/1.73 sq M.predicted among non-blacks MDRD (S/P/Bld) [Vol rate/Area] 88 mL/min/{1.73_m2} >60 [facility] Comment on above: mL/min/1.73m2 CKD-EP I Creatinine Equation (2020) Hematocrit Auto (Bld) [Volum e fraction]Ordered By: Charlee Humphries on 12-24-2024 Hematocrit (Bld) [Volume fraction] 40.5 % 37-47 [facility] Hemoglobin measurementOrdere d By: Charlee Humphries on 12-24-2024 Hemoglobin (Bld) [Mass/Vol] 13.5 g/dL 12.0-15.0 [facility] LDL calc ser/plasOrdered By: Charlee Humphries on 12-24-2024 Cholesterol in LDL [Mass/Vol] 126 mg/dL Normal [facility] Comment on above: Xnjmrympop=008-084 m g/dL & Higher Igdy=304 mg/dL or greater Order Comment: PLEAS E FAX LAB RESULTS Result Comment: Bord auqbdo=181-584 mg/dL Higher Onjh=795 mg/dL or greater Performed By: #### L 500.4050, L100.0100 #### [facility] [place], [address] Laboratory - Chemistry and C hemistry - challengeOrdered By: Charlee Humphries on 12-24-2024 AST [Catalytic activity/Vol] 21 U/L <32 [facility] Lipid Profileon 12-24-2024 CHOL:HDL 5.20 Normal [facility] Comment on above: Order Comment: PLEAS E FAX LAB RESULTS Performed By: #### L 500.4050, L100.0100 #### [facility] [address] [place], [address] Cholesterol in VLDL [Mass/Vol] 24 mg/dL Normal 5-40 [facility] Comment on above: Order Comment: PLEAS E FAX LAB RESULTS Performed By: #### L 500.4050, L100.0100 #### [facility] [address] [place], [address] MCV (mean corpuscular volume ) determinationOrdered By: Charlee Humphries on 12-24-2024 MCV (RBC) [Entitic vol] 80.5 fL Low 81-99 [facility] Magnesiumon 12-24-2024 Magnesium [Mass/Vol] 2.3 mg/dL High 1.5-2.2 [facility] Comment on above: Order Comment: PLEAS E FAX LAB RESULTS Performed By: #### L 500.4050, L100.0100 #### [facility] [address] [place], [address] Magnesium measurement (mass/ volume)Ordered By: Charlee Humphries on 12-24-2024 Magnesium (Unsp spec) [Mass/Vol] 2.3 mg/dL High 1.5-2.2 [facility] Mean corpuscular hemoglobin (MCH) determinationOrdered By: Charlee Humphries on 12-24-2024 MCH (RBC) [Entitic mass] 26.8 pg Low 27.0-32.0 [facility] Mean corpuscular hemoglobin concentration (MCHC) determinationOrdered By: Charlee Humphries on 12-24-2024 MCHC (RBC) [Mass/Vol] 33.3 g/dL 32-36 [facility] Mean platelet volume determi nationOrdered By: Charlee Humphries on 12-24-2024 Platelet mean volume (Bld) [Entitic vol] 9.3 fL 6.2-12.0 [facility] Microalb:Creat Ratio,Random URon 12-24-2024 Creatinine [Mass/Vol] 159.00 mg/dL Normal 28.00- 217.0 0 [facility] Comment on above: Order Comment: PLEAS E FAX LAB RESULTS Performed By: #### L 500.4050, L100.0100 #### [facility] [address] [place], [place], [id number] Microalbumin/creat ratio urO rdered By: Charlee Humphries on 12-24-2024 Urine microalbumin/creatinine ratio measurement UNABLE TO CALCULATE mg/g CRE [facility] Comment on above: Previous reported re sult: UNABLE TO CALCULATE mg/g CREEdited by: SPENCER on 12/24/24:0939 AMENDED REPORT 12/24/24938 MALB:CREAT previously reported as: UNABLE TO CALCULATE mg/g CRE PTHINon 12-24-2024 PTH 75 pg/mL High 1161 [facility] Comment on above: Order Comment: PLEAS E FAX LAB RESULTS Performed By: #### L 501.5200, L509.1000, L506.1001, L502.0250, L501.9520, L100.0500, L500.4100, L500.4050, L506.0400 #### [facility] [address] [place], [address] Platelet countOrdered By: Milton Humphries on 12-24-2024 Platelets (Bld) [#/Vol] 288 10*3/uL 150-450 [facility] Potassium measurement (mass/ volume)Ordered By: Charlee Humphries on 12-24-2024 Potassium (Unsp spec) [Mass/Vol] 4.1 mmol/L 3.3-5.1 [facility] RBC Auto (Bld) [#/Vol]Ordere d By: Charlee Humphries on 12-24-2024 RBC (Bld) [#/Vol] 5.03 10*6/uL 4.2-5.4 [facility] Random urine creatinine eliel urement (mass/volume)Ordered By: Charlee Humphries on 12-24-2024 Creatinine Unsp time (U) [Mass/Vol] 159.00 mg/dL 28.00-217.0 0 [facility] Screening total cholesterol/ high density lipoprotein (HDL) cholesterol ratioOrdered By: Charlee Humphries on 12-24-2024 Cholesterol.total/Choleste rol in HDL [Mass ratio] 5.20 {ratio} [facility] Serum creatinine measurement (mass/volume)Ordered By: Charlee Humphries on 12-24-2024 Creatinine [Mass/Vol] 0.80 mg/dL 0.70-1.20 [facility] Serum globulin measurementOr dered By: Charlee Humphries on 12-24-2024 Globulin (S) [Mass/Vol] 3.8 g/dL 2.2-4.2 [facility] Serum glucose measurement (m ass/volume)Ordered By: Charlee Humphries on 12-24-2024 Glucose [Mass/Vol] 108 mg/dL High 70-99 [facility] Serum or plasma alanine umaña otransferase (ALT) measurementOrdered By: Charlee Humphries on 12-24-2024 ALT [Catalytic activity/Vol] 28 U/L <35 [facility] Serum or plasma albumin eliel urement (mass/volume)Ordered By: Charlee Humphries on 12-24-2024 Albumin [Mass/Vol] 4.0 g/dL 3.5-5.0 [facility] Serum or plasma albumin/glob ulin mass ratioOrdered By: Charlee Humphries on 12-24-2024 Albumin/Globulin [Mass ratio] 1.1 {ratio} 0.9-2.4 [facility] Serum or plasma alkaline josefina sphatase measurementOrdered By: Charlee Humphries on 12-24-2024 ALP [Catalytic activity/Vol] 146 U/L High 35-104 [facility] Serum or plasma calcium eliel urement (mass/volume)Ordered By: Charlee Humphries on 12-24-2024 Calcium [Mass/Vol] 8.9 mg/dL 7.6-11.0 [facility] Serum or plasma cholesterol in HDL measurement (mass/volume)Ordered By: Charlee Humphries on 12-24-2024 Cholesterol in HDL [Mass/Vol] 36 mg/dL Low [facility] Comment on above: National Cholesterol Education Program (NCEP) guidelines:<40 mg/dL: Low HDL-cholesterol (major risk factor for CHD)>= 60 mg/dL: High HDL-cholesterol (negative risk factor for CHD)HDL-cholesterol is affected by a number of factors, e.g. smoking, exercise, hormones, sex and age. Order Comment: NAKUL GEIGERX LAB RESULTS Result Comment: Emily onal Cholesterol Education Program (NCEP) guidelines: <40 mg/dL: Low HDL-cholesterol (major risk factor for CHD) >= 60 mg/dL: High HDL-cholesterol (negative risk factor for CHD) HDL-cholesterol is affected by a number of factors, e.g. smoking, exercise, hormones, sex and age. Performed By: #### L 500.4050, L100.0100 #### [facility] [address] [place], [place], [address] Serum or plasma cholesterol measurement (mass/volume)Ordered By: Charlee Humphries on 12-24-2024 Cholesterol [Mass/Vol] 186 mg/dL Normal <=200 [facility] Comment on above: Cholesterol level, D esirable <200 mg/dLBorderline high cholesterol 200-239 mg/dLHigh cholesterol >=240 mg/dLRecommendations of the NCEP Adult Treatment Panel for the following risk-cutoff thresholds for the [place] population. Order Comment: PLEINES E FAX LAB RESULTS Result Comment: Chol esterol level, Desirable <200 mg/dL Borderline high cholesterol 200-239 mg/dL High cholesterol >=240 mg/dL Recommendations of the NCEP Adult Treatment Panel for the following risk-cutoff thresholds for the [place] population. Performed By: #### L 500.4050, L100.0100 #### [facility] [address] [place], [place], [address] Serum or plasma urea nitroge n measurement (mass/volume)Ordered By: Charlee Humphries on 12-24-2024 Urea nitrogen [Mass/Vol] 19 mg/dL 4-19 [facility] Sodium levelOrdered By: Sohail Humphries on 12-24-2024 Sodium [Moles/Vol] 140 mmol/L 133-145 [facility] T4 Free Directon 12-24-2024 T4 FREE DIRECT 0.90 ng/dL Normal 0.76-1.46 [facility] Comment on above: Order Comment: PLEAS E FAX LAB RESULTSN Performed By: #### L 500.4050, L100.0100 #### [facility] [address] [place], [place], [id number] T4 freeOrdered By: Charlee lacy on 12-24-2024 Free T4 [Mass/Vol] 0.90 ng/dL 0.76-1.46 [facility] TSH DL <= 0.005 mIU/L QnOrde red By: Charlee Humphries on 12-24-2024 TSH Qn 1.430 uIU/mL 0.300-4.200 [facility] Thyroid Stim Hormone (TSH)on 12-24-2024 TSH 1.430 uIU/mL Normal 0.300-4.200 [facility] Comment on above: Order Comment: PLEAS E FAX LAB RESULTS Performed By: #### L 500.4050, L100.0100 #### [facility] [address] [place], [place], [id number] Total proteinOrdered By: Caden Humphries on 12-24-2024 Protein [Mass/Vol] 7.8 g/dL 5.9-8.4 [facility] Triglycerides measurementOrd ered By: Charlee Humphries on 12-24-2024 Triglyceride [Mass/Vol] 120 mg/dL Normal [facility] Comment on above: The drugs N-Acetylcy [...] Performed By: #### L 500.4050, L100.0100 #### [facility] [address] [place], [address] Urine albumin measurement wi th detection limit of 20 mg/L or less (mass/volume)Ordered By: Charlee Humphries on 12-24-2024 Albumin DL <= 20 mg/L (U) [Mass/Vol] < 12.0 mg/L NO RANGE EST. [facility] Vitamin D,25 Hydroxyon 12-24 Vitamin D 25-OH 38.6 ng/mL Normal 30-100 [facility] Comment on above: Order Comment: PLEAS E FAX LAB RESULTS Result Comment: Mary min D Status Deficiency: <20 ng/mL (50nmol/L) Insufficiency: 20-30 ng/mL (50-75 nmol/L) Sufficiency: 30-100 ng/mL (75-250 nmol/L) Toxicity: >100 ng/mL (>250 nmol/L) Performed By: #### L 500.4050, L100.0100 #### [facility] [address] [facility] 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 Bria Schmidt risk calculations, generated with the [...] to annual mammographic screening per the [place] [employer]. BIRADS: MAMMOGRAM BI-RADS: 1: Negative RECALL: 1 year screening RECALL TYPE: mammo LETTER SENT: Normal BI-RADS 1 and 2 Interpreted by: Lakeisha Hanson Preliminary Report By: Lakeisha Hanson Electronically signed By Lakeisha Hanson Dictated Date: 09/28/2024 8:57:21 AM Prelim Date: 09/28/2024 8:59:36 AM Sign Date: 09/28/2024 8:59:36 AM Ordering Provider: CHARLEE HUMPHRIES Storage Receipt Poster: NARDA JARQUIN RT (R)(M) letter sent: Normal BI-RADS 1 and 2 Mammogram BI-RADS: 1 Negative Normal [facility] Kidney and Bladderon 025 Kidney and Bladder [facility] Imaging Services [facility] [place] [address] Kidney and Bladder MR#: [id number] Acct: [id number] Name: LING DIAS Rep #: [id number] : 1970 F 54 From: Quentin Perdue MD PCP: Charlee Humphries, PATIENT FLOW COORDINATOR-C Status: REG CLI Study: Kidney and Bladder Date of Exam: 09/22/24 Exam# [id number] Ordering Dr: Anne Ridley MD PROCEDURE: KIDNEY [...] is not seen during imaging. Reading Location: [facility] CC: PATIENT FLOW COORDINATOR-C Charlee Humphries; Dr. Anne Ridley MD Gun Examiner: Signed Normal [facility] Bacteria Ur Culton Bacteria identified Cx Nom [...] , Intermediate >32 , Resistant >64 Abnormal [facility] Comment on above: Performed By: #### 6 30-4 ####[facility] LABIA [id number] [address] [place] CNOVon 08-17-2024 CNOV Office Visit (UCWSTR ) LING DIAS ([id number]) 1970 F Date Time Provider Department 08/17/24 7:15 AM MILLICENT SOL WSTR During your visit today, we recorded the following information about you: Temperature Pulse Respiration Blood pressure 97.8 degrees 90/minute 18/minute 132/80 Weight 120.5 kg Millicent Sol PA-C 08/17/2024 7:39 AM Signed This note was created using Nextinit. Subjective Ling Dias is a 54 year [...] MG CAPSULE - PHENAZOPYRIDINE 100 MG TABLET Milliecnt AR Sol Allergies As of Date: 08/17/2024 (No Known Allergies) Date Reviewed: 08/17/2024 Reviewed by: Cathleen Michelle LPN - Fully Assessed Reason for Visit: Urinary Frequency [1086] Cmt: Frequency and burning x 1 day Primary Visit Diagnosis:Urinary frequency [R35.0] Other Visit Diagnosis:Acute UTI [N39.0] Order(s):UA DIP, URINE (POC) [3741773] Order #: [id number]. #:[id number] BACTERIAL CULTURE, URINE [SQURCUL] Order #: [id number]. #:[id number] cephALEXin (KEFLEX) 500 mg capsuleTake 1 capsule [...] - busPI (more content not included)... Normal [facility] UA DIP, URINE (POC)on 2024 BILIRUBIN UA (POCT) Small Abnormal Negative [facility] CLARITY UA (POCT) Clear [facility] COLOR UA (POCT) Red [facility] GLUCOSE UA (POCT) Negative Negative mg/dL [facility] Hemoglobin Ql (U) Large Abnormal Negative [facility] Interpretation and review of laboratory results Abnormal [facility] KETONE UA (POCT) Negative Negative mg/dL [facility] LEUKOCYTES UA (POCT) Large Abnormal Negative [facility] NITRITE UA (POCT) Positive Abnormal Negative [facility] PH UA (POCT) 6.0 4.5 - 8.0 [facility] Protein Ql (U) >=300 Abnormal Negative mg/dL [facility] SPECIFIC GRAVITY UA (POCT) 1.025 1 .005 - 1.030 [facility] UROBILINOGEN UA (POCT) 0.2 Kriss l E.U./dL [facility] Location:[facility], [address] [place] [address], [place], [address] [facility] POINT OF CARE [facility] Microalb:Creat Ratio,Random URon 06-27-2024 Creatinine [Mass/Vol] 252.00 mg/dL Normal NO RAN GE EST. [facility] Comment on above: Performed By: #### L 500.4050, L100.0100 #### [facility] [address] [place], [address] MALB:CRE 6.1 mg/g CRE Normal <30 mg/g CRE [facility] Comment on above: Performed By: #### L 500.4050, L100.0100 #### [facility] [address] [place], [address] MICROALBUMIN,UR 15.3 mg/L Normal NO RANGE EST. [facility] Comment on above: Performed By: #### L 500.4050, L100.0100 #### [facility] [address] [place], [address] Random urine microalbumin me asurementOrdered By: Charlee Humphries on 06-27-2024 Urine Random Microalbumin 15.3 mg/L NO RANGE EST. [facility] Urine albumin/creatinine rat io for detection of microalbuminuriaOrdered By: Charlee Humphries on 06-27-2024 Urine Microalbumin/Creatinine Ratio 6.1 mg/g CRE <30 [facility] Urine creatinine measurement (mass/volume)Ordered By: Charlee Humphries on 06-27-2024 Creatinine (U) [Mass/Vol] 252.00 mg/dL NO RANGE EST. [facility] Vitamin D,25 Hydroxyon 06-27 Vitamin D 25-OH 45.0 ng/mL Normal [facility] Comment on above: Result Comment: Mary min D 25(OH) Status Range Deficiency <20 ng/mL (50nmol/L) Insufficiency 20 - 30 ng/mL (50 - 75 nmol/L) Sufficiency 30 - 100 ng/mL (75 - 250 nmol/L) Toxicity >100 ng/mL (>250 nmol/L) Performed By: #### L 501.9520, L100.0500, L506.1000, L501.0900, L500.4100, L500.4050, L506.0400 ####[facility] [address] [place], [address] [id number] DOrdered By: Troy Humphries on 06-25-2024 Vitamin D 25-Hydroxy 45.0 ng/mL [facility] Comment on above: Vitamin D 25(OH) Sta tus Range Deficiency <20 ng/mL (50nmol/L) Insufficiency 20 - 30 ng/mL (50 - 75 nmol/L) Sufficiency 30 - 100 ng/mL (75 - 250 nmol/L) Toxicity >100 ng/mL (>250 nmol/L) Albumin to globulin ratioOrd ered By: Charlee Humphries on 06-25-2024 Albumin/Globulin [Mass ratio] 0.8 {ratio} Low 0.9-2.4 [facility] Bilirubin, totalOrdered By: Charlee Humphries on 06-25-2024 Bilirubin [Mass/Vol] 0.60 mg/dL 0.20-1.00 [facility] Comment on above: For patients on eltr ombopag therapy, use of Dimension Wheeler TBIL is not recommended. Blood urea nitrogen (BUN)/cr eatinine ratioOrdered By: Charlee Humphries on 06-25-2024 Urea nitrogen/Creatinine [Mass ratio] 17.8 mg/mg - [facility] CBC-Complete Blood Cnt No Di ffon 06-25-2024 Erythrocyte distribution width (RBC) [Ratio] 13.7 % Normal 11.6-14.6 [facility] Comment on above: Performed By: #### L 500.4050, L100.0100 #### [facility] [address] [place], [address] Hematocrit (Bld) [Volume fraction] 42.5 % Normal 37-47 [facility] Comment on above: Performed By: #### L 500.4050, L100.0100 #### [facility] [address] [place], [address] Hemoglobin (Bld) [Mass/Vol] 13.8 g/dL Normal 12.0-15.0 [facility] Comment on above: Performed By: #### L 500.4050, L100.0100 #### [facility] [address] [place], [address] MCH (RBC) [Entitic mass] 27.0 pg Normal 27.0-32.0 [facility] Comment on above: Performed By: #### L 500.4050, L100.0100 #### [facility] [address] [place], [address] MCHC (RBC) [Mass/Vol] 32.5 g/dL Normal 32-36 [facility] Comment on above: Performed By: #### L 500.4050, L100.0100 #### [facility] [address] [place], [address] MCV (RBC) [Entitic vol] 83.0 fL Normal 81-99 [facility] Comment on above: Performed By: #### L 500.4050, L100.0100 #### [facility] [address] [place], [address] Platelet mean volume (Bld) [Entitic vol] 9.4 fL Normal 6.2-12.0 [facility] Comment on above: Performed By: #### L 500.4050, L100.0100 #### [facility] [address] [place], [address] Platelets (Bld) [#/Vol] 312 10*3/uL Normal 150-450 [facility] Comment on above: Performed By: #### L 500.4050, L100.0100 #### [facility] [address] [place], [address] RBC (Bld) [#/Vol] 5.12 10*6/uL Normal 4.2-5.4 [facility] Comment on above: Performed By: #### L 500.4050, L100.0100 #### [facility] [address] [place], [address] RDW SD 41.3 fl Normal 35.1-43.9 [facility] Comment on above: Performed By: #### L 500.4050, L100.0100 #### [facility] [address] [place], [address] WBC (Bld) [#/Vol] 7.5 10*3/uL Normal 4.4-11.0 [facility] Comment on above: Performed By: #### L 500.4050, L100.0100 #### [facility] [address] [place], [address] Carbon dioxide measurementOr dered By: Charlee Humphries on 06-25-2024 CO2 [Moles/Vol] 27.0 mmol/L 21.0-32.0 [facility] Chloride measurementOrdered By: Charlee Humphries on 06-25-2024 Chloride [Moles/Vol] 110 mmol/L High 98-107 [facility] Comprehensive Metabolic Prof ilon 06-25-2024 Albumin [Mass/Vol] 3.7 g/dL Normal 3.2-5.0 [facility] Comment on above: Performed By: #### L 500.4050, L100.0100 #### [facility] [address] [place], [address] Albumin/Globulin [Mass ratio] 0.8 {ratio} Low 0.9-2.4 [facility] Comment on above: Performed By: #### L 500.4050, L100.0100 #### [facility] [address] [place], [address] ALK P 214 U/L High 45-117 [facility] Comment on above: Performed By: #### L 500.4050, L100.0100 #### [facility] [address] [place], [address] ALT [Catalytic activity/Vol] 49 U/L Normal 13-56 [facility] Comment on above: Performed By: #### L 500.4050, L100.0100 #### [facility] [address] [place], [address] AST [Catalytic activity/Vol] 19 U/L Normal 15-37 [facility] Comment on above: Performed By: #### L 500.4050, L100.0100 #### [facility] [address] [place], [address] Bilirubin [Mass/Vol] 0.60 mg/dL Normal 0.20-1.00 [facility] Comment on above: Result Comment: For patients on eltrombopag therapy, use of Dimension Wheeler TBIL is not recommended. Performed By: #### L 500.4050, L100.0100 #### [facility] [address] [place], [address] BUN/CRE 17.8 RATIO Normal 10-20 [facility] Comment on above: Performed By: #### L 500.4050, L100.0100 #### [facility] [address] [place], [address] CA,Total 9.3 mg/dL Normal 8.5-10.1 [facility] Comment on above: Performed By: #### L 500.4050, L100.0100 #### [facility] [address] [place], [address] Chloride [Moles/Vol] 110 mmol/L High 98-107 [facility] Comment on above: Performed By: #### L 500.4050, L100.0100 #### [facility] [address] [place], [address] CO2 [Moles/Vol] 27.0 mmol/L Normal 21.0-32.0 [facility] Comment on above: Performed By: #### L 500.4050, L100.0100 #### [facility] [address] [place], [address] Creatinine [Mass/Vol] 1.07 mg/dL High 0.55-1.02 [facility] Comment on above: Result Comment: The validity of the calculated GFR GFRAA in patients over 70 years has not been determined. Clinical correlation is essential. Performed By: #### L 500.4050, L100.0100 #### [facility] [address] [place], [address] EST GFR - AA 69 mL/min Normal >60 [facility] Comment on above: Result Comment: Afri can [place] GFR Calc Performed By: #### L 500.4050, L100.0100 #### [facility] [address] [place], [address] GAP 5 Normal 5-15 [facility] Comment on above: Performed By: #### L 500.4050, L100.0100 #### [facility] [address] [place], [address] GFR/1.73 sq M.predicted among non-blacks MDRD (S/P/Bld) [Vol rate/Area] 57 mL/min/{1.73_m2} Low >60 [facility] Comment on above: Result Comment: Non- GFR Calc Performed By: #### L 500.4050, L100.0100 #### [facility] [address] [place], [address] Globulin (S) [Mass/Vol] 4.4 g/dL High 2.2-4.2 [facility] Comment on above: Performed By: #### L 500.4050, L100.0100 #### [facility] [address] [place], [address] Glucose [Mass/Vol] 99 mg/dL Normal 74-106 [facility] Comment on above: Performed By: #### L 500.4050, L100.0100 #### [facility] [address] [place], [address] Potassium [Moles/Vol] 3.6 mmol/L Normal 3.5-5.1 [facility] Comment on above: Performed By: #### L 500.4050, L100.0100 #### [facility] [address] [place], [address] Sodium [Moles/Vol] 142 mmol/L Normal 136-145 [facility] Comment on above: Performed By: #### L 500.4050, L100.0100 #### [facility] [address] [place], [address] T PROT 8.1 g/dL Normal 6.4-8.2 [facility] Comment on above: Performed By: #### L 500.4050, L100.0100 #### [facility] [address] [place], [address] Urea nitrogen [Mass/Vol] 19 mg/dL High 7-18 [facility] Comment on above: Performed By: #### L 500.4050, L100.0100 #### [facility] [address] [place], [address] Direct serum free thyroxine (FT4) measurementOrdered By: Charlee Humphries on 06-25-2024 Free T4 [Mass/Vol] 1.09 ng/dL 0.76-1.46 [facility] Erythrocyte distribution wid th ratioOrdered By: Charlee Humphries on 06-25-2024 Erythrocyte distribution width (RBC) [Ratio] 13.7 % 11.6-14.6 [facility] Erythrocyte distribution wid th standard deviationOrdered By: Charlee Humphries on 06-25-2024 Erythrocyte distribution width (RBC) [Entitic vol] 41.3 fL 35.1-43.9 [facility] Estimated glomerular filtrat ion rate (GFR) AmericanOrdered By: Charlee Humphries on 06-25-2024 Estimated GFR (MDRD) Amer 69 mL/min >60 [facility] Comment on above: GFR Calc Glomerular filtration rate ( GFR) estimationOrdered By: Charlee Humphries on 06-25-2024 Estimated GFR (MDRD) Non-Af Amer 57 mL/min Low >60 [facility] Comment on above: Non- GFR Calc Glucose measurementOrdered B y: Charlee Humphries on 06-25-2024 Glucose [Mass/Vol] 99 mg/dL 74-106 [facility] Hematocrit Auto (Bld) [Volum e fraction]Ordered By: Charlee Humphries on 06-25-2024 Hematocrit (Bld) [Volume fraction] 42.5 % 37-47 [facility] Hemoglobin measurementOrdere d By: Charlee Humphries on 06-25-2024 Hemoglobin (Bld) [Mass/Vol] 13.8 g/dL 12.0-15.0 [facility] High density lipoprotein (HD L) measurementOrdered By: Charlee Humphries on 06-25-2024 Cholesterol in HDL [Mass/Vol] 41 mg/dL >40 [facility] Comment on above: The drugs N-Acetylcy steine and Metamizole may falsely depress this assay. Reference Range HDL <40 mg/dL Low HDL Cholesterol HDL >or= 60 mg/dL High HDL Cholesterol Laboratory - Chemistry and C hemistry - challengeOrdered By: Charlee Humphries on 06-25-2024 AST [Catalytic activity/Vol] 19 U/L 15-37 [facility] Lipid Profileon 06-25-2024 Cholesterol [Mass/Vol] 193 mg/dL Normal 200 [facility] Comment on above: Result Comment: <200 mg/dL Desirable 200-240 mg/dL Borderline >240 mg/dL High Risk Performed By: #### L 501.9520, L100.0500, L506.1000, L501.0900, L500.4100, L500.4050, L506.0400 ####[facility] [address] [place], [address] Cholesterol in HDL [Mass/Vol] 41 mg/dL Normal [facility] Comment on above: Result Comment: The drugs N-Acetylcysteine and Metamizole may falsely depress this assay. Reference Range HDL <40 mg/dL Low HDL Cholesterol HDL >or= 60 mg/dL High HDL Cholesterol Performed By: #### L 501.9520, L100.0500, L506.1000, L501.0900, L500.4100, L500.4050, L506.0400 ####[facility] [address] [place], [address] Cholesterol in LDL [Mass/Vol] 136 mg/dL High 0-130 [facility] Comment on above: Performed By: #### L 501.9520, L100.0500, L506.1000, L501.0900, L500.4100, L500.4050, L506.0400 ####[facility] [address] [place], [place], [address] Cholesterol in VLDL [Mass/Vol] 16 mg/dL Normal 5-40 [facility] Comment on above: Performed By: #### L 501.9520, L100.0500, L506.1000, L501.0900, L500.4100, L500.4050, L506.0400 ####[facility] [address] [place], [place], [address] Triglyceride [Mass/Vol] 82 mg/dL Normal [facility] Comment on above: Result Comment: The drugs N-Acetylcysteine and Metamizole may falsely depress this assay. Serum Triglycerides Reference Interval Normal <150 mg/dL Borderline high 150 - 199 mg/dL High 200 - 499 mg/dL Very High > or = 500 mg/dL Performed By: #### L 501.9520, L100.0500, L506.1000, L501.0900, L500.4100, L500.4050, L506.0400 ####[facility] [address] [place], [address] Low density lipoprotein (LDL ) cholesterol measurementOrdered By: Charlee Humphries on 06-25-2024 Cholesterol in LDL [Mass/Vol] 136 mg/dL High 0-130 [facility] MCV (mean corpuscular volume ) determinationOrdered By: Charlee Humphries on 06-25-2024 MCV (RBC) [Entitic vol] 83.0 fL 81-99 [facility] Mean corpuscular hemoglobin (MCH) determinationOrdered By: Charlee Humphries on 06-25-2024 MCH (RBC) [Entitic mass] 27.0 pg 27.0-32.0 [facility] Mean corpuscular hemoglobin concentration (MCHC) determinationOrdered By: Charlee Humphries on 06-25-2024 MCHC (RBC) [Mass/Vol] 32.5 g/dL 32-36 [facility] Mean platelet volume determi nationOrdered By: Charlee Humphries on 06-25-2024 Platelet mean volume (Bld) [Entitic vol] 9.4 fL 6.2-12.0 [facility] Platelet countOrdered By: Milton Humphries on 06-25-2024 Platelets (Bld) [#/Vol] 312 10*3/uL 150-450 [facility] Potassium measurementOrdered By: Charlee Humphries on 06-25-2024 Potassium [Moles/Vol] 3.6 mmol/L 3.5-5.1 [facility] Protein+Creatinine Ratio,Uri neon 06-25-2024 PROT:CRE RATIO Normal 0-200 [facility] Comment on above: Result Comment: UTO Performed By: #### L 501.9520, L100.0500, L506.1000, L501.0900, L500.4100, L500.4050, L506.0400 ####[facility] [address] [place], [address] PROTEIN,UR.RAN. Normal <11.9 [facility] Comment on above: Result Comment: UTO Performed By: #### L 501.9520, L100.0500, L506.1000, L501.0900, L500.4100, L500.4050, L506.0400 ####[facility] [address] [place], [address] UR CREAT Normal NO RANGE EST. [facility] Comment on above: Result Comment: UTO Performed By: #### L 501.9520, L100.0500, L506.1000, L501.0900, L500.4100, L500.4050, L506.0400 ####[facility] [address] [place], [address] RBC Auto (Bld) [#/Vol]Ordere d By: Charlee Humphries on 06-25-2024 RBC (Bld) [#/Vol] 5.12 10*6/uL 4.2-5.4 [facility] Serum anion gap measurementO rdered By: Charlee Humphries on 06-25-2024 Anion gap [Moles/Vol] 5 mmol/L 5-15 [facility] Serum globulin measurementOr dered By: Charlee Humphries on 06-25-2024 Globulin (S) [Mass/Vol] 4.4 g/dL High 2.2-4.2 [facility] Serum or plasma alanine umaña otransferase (ALT) measurementOrdered By: Charlee Humphries on 06-25-2024 ALT [Catalytic activity/Vol] 49 U/L 13-56 [facility] Serum or plasma albumin eliel urement (mass/volume)Ordered By: Charlee Humphries on 06-25-2024 Albumin [Mass/Vol] 3.7 g/dL 3.2-5.0 [facility] Serum or plasma alkaline josefina sphatase measurementOrdered By: Charlee Humphries on 06-25-2024 ALP [Catalytic activity/Vol] 214 U/L High 45-117 [facility] Serum or plasma calcium eliel urement (mass/volume)Ordered By: Charlee Humphries on 06-25-2024 Calcium [Mass/Vol] 9.3 mg/dL 8.5-10.1 [facility] Serum or plasma cholesterol measurement (mass/volume)Ordered By: Charlee Humphries on 06-25-2024 Cholesterol [Mass/Vol] 193 mg/dL <200 [facility] Comment on above: <200 mg/dL Desirable 200-240 mg/dL Borderline >240 mg/dL High Risk Serum or plasma creatinine m easurement (mass/volume)Ordered By: Charlee Humphries on 06-25-2024 Creatinine [Mass/Vol] 1.07 mg/dL High 0.55-1.02 [facility] Comment on above: The validity of the calculated GFR & GFRAA in patients over 70 years has not been determined. Clinical correlation is essential. Serum or plasma urea nitroge n measurement (mass/volume)Ordered By: Charlee Humphries on 06-25-2024 Urea nitrogen [Mass/Vol] 19 mg/dL High 7-18 [facility] Sodium levelOrdered By: Sohail Humphries on 06-25-2024 Sodium [Moles/Vol] 142 mmol/L 136-145 [facility] T4 Free Directon 06-25-2024 T4 FREE DIRECT 1.09 ng/dL Normal 0.76-1.46 [facility] Comment on above: Performed By: #### L 501.9520, L100.0500, L506.1000, L501.0900, L500.4100, L500.4050, L506.0400 ####[facility] [address] [place], [place], [id number] TSH QnOrdered By: Charlee lindsey on 06-25-2024 Thyroid Stimulating Hormone (TSH) 0.747 uIU/mL 0.358-3.740 [facility] Thyroid Stim Hormone (TSH)on 06-25-2024 TSH 0.747 uIU/mL Normal 0.358-3.740 [facility] Comment on above: Performed By: #### L 501.9520, L100.0500, L506.1000, L501.0900, L500.4100, L500.4050, L506.0400 ####[facility] [address] [place], [place], [id number] Total proteinOrdered By: Caden Humphries on 06-25-2024 Protein [Mass/Vol] 8.1 g/dL 6.4-8.2 [facility] Triglycerides measurementOrd ered By: Charlee Humphries on 06-25-2024 Triglyceride [Mass/Vol] 82 mg/dL <199 [facility] Comment on above: The drugs N-Acetylcy steine and Metamizole may falsely depress this assay.Serum Triglycerides Reference Interval Normal <150 mg/dL Borderline high 150 - 199 mg/dL High 200 - 499 mg/dL Very High > or = 500 mg/dL Very low density lipoprotein (VLDL) cholesterol measurementOrdered By: Charlee Humphries on 06-25-2024 VLDL Cholesterol 16 mg/dL 5-40 [facility] White blood cell (WBC) count Ordered By: Charlee Humphries on 06-25-2024 WBC (Bld) [#/Vol] 7.5 10*3/uL 4.4-11.0 [facility] ANES POSTPROC EVALon 024 ANES POSTPROC EVAL HNO ID: [id number] Author: GHANSHYAM DEY MD Service: Anesthesiology Author Type: Anesthesiologist Type: Anesthesia Postprocedure Evaluation Filed: 06/24/2024 12:52 Note Text: POST ANESTHESIA EVALUATION NOTE : 1970 Procedure Summary Date: 06/24/24 Room / Location: [facility] Endoscopy Anesthesia Start: 1209 Anesthesia Stop: 1243 Procedure: COLONOSCOPY SCREENING Diagnosis: Screen for colon cancer (Screening for colorectal malignant neoplasm) Scheduled Providers: Fredo Garcia DO; Bayron Curry APRN.FAN MAIL EDITOR; Ghanshyam Dey MD Responsible Provider: Ghanshyam Dey [...] June 24, 2024 TIME: 12:51 PM CSN: [id number] [facility] ANES PRE-OPon 06-24-2024 ANES PRE-OP HNO ID: [id number] Author: GHANSHYAM DEY MD Service: Anesthesiology Author Type: Anesthesiologist Type: Anesthesia Preprocedure Evaluation Filed: 06/24/2024 10:39 Note Text: ANESTHESIOLOGY DAY OF SURGERY NOTE : 1970 Procedure Information Date/Time: 06/24/24 1245 Scheduled providers: Fredo Garcia DO; Bayron Curry APRN.FAN MAIL EDITOR; Ghanshyam Dey MD Procedure: COLONOSCOPY SCREENING Location: [facility] Endoscopy Estimated body mass index is 37.71 [...] and consent discussed: yes. Patient / Responsible Democrat agrees to proceed: yes Patient / Surrogate [...] June 24, 2024 TIME: 10:39 AM CSN: [id number] Normal [facility] Colonoscopyon 06-24-2024 Colonoscopy [facility] Gastrointestinal Endoscopy Patient Name: Ling Dias Procedure Date: 06/24/2024 11:58 AM Date of : 1970 Admit Type: Outpatient Age: 54 Room: [facility] Gender: Female Note Status: Finalized Attending MD: Fredo Garcia , , [id number] Procedure: Colonoscopy Indications: Screening for colorectal malignant [...] physician, the nurse, the anesthesiologist and the pin puller in the pre-procedure area in the endoscopy [...] 2 weeks. Procedure Code(s): --- Professional --- 08951, Colonoscopy, flexible; diagnostic, including collection of specimen(s) by brushing or washing, when performed (separate procedure) Diagnosis Code(s): --- Professional --- Z12.11, Encounter for screening for malignant neoplasm of colon K64.0, First degree hemorrhoids CPT copyright 2020 [employer]. All rights reserved. The codes documented in this report are preliminary and upon power switchboard operator review may be revised to meet current compliance requirements. Attending Participation: I personally performed the entire procedure. Scope In: 12:17:55 PM Scope Out: 12:40:00 PM DO Fredo DUMONT, 06/24/2024 12:45:12 PM This report has been signed e (more content not included)... Normal [facility] Colonoscopy Study observatio non 06-24-2024 [facility] Gastrointestinal Endoscopy Patient Name: Ling Dias Procedure Date: 06/24/2024 11:58 AM Date of : 1970 Admit Type: Outpatient Age: 54 Room: [facility] Gender: Female Note Status: Finalized Attending MD: Fredo Garcia , , [id number] Procedure: Colonoscopy Indications: Screening for colorectal malignant [...] physician, the nurse, the anesthesiologist and the pin puller in the pre-procedure area in the endoscopy [...] specimens collec (more content not included)... PROVATION [facility] Radiology Study observation (narrative) [facility] HISTORY PHYSICALon 4 HISTORY PHYSICAL HNO ID: [id number] Author: FREDO GARCIA DO Service: General Surgery [...] June 24, 2024 TIME: 12:14 PM Normal [facility] Absolute neutrophil countOrd ered By: Ghanshyam Puente on 06-11-2024 Neutrophils (Bld) [#/Vol] 2.7 10*3/uL 2.0-7.7 [facility] Albumin to globulin ratioOrd ered By: Ghanshyam Puente on 06-11-2024 Albumin/Globulin [Mass ratio] 0.8 {ratio} Low 0.9-2.4 [facility] Basophil percentageOrdered B y: Ghanshyam Puente on 06-11-2024 Basophils/100 WBC (Bld) 0.7 % 0-1 [facility] Bilirubin, totalOrdered By: Ghanshyam Puente on 06-11-2024 Bilirubin [Mass/Vol] 1.20 mg/dL High 0.20-1.00 [facility] Comment on above: For patients on eltr ombopag therapy, use of Dimension Wheeler TBIL is not recommended. Blood urea nitrogen (BUN)/cr eatinine ratioOrdered By: Ghanshyam Puente on 06-11-2024 Urea nitrogen/Creatinine [Mass ratio] 13.3 mg/mg 10-20 [facility] CBC W/Diff, Automatedon 05-15 Absolute Lymph 1.31 X10 3/uL Normal 0.83-4.51 [facility] Comment on above: Performed By: #### L 500.4050, L100.0100 #### [facility] [address] [place], [address] Absolute Neut 2.7 X10 3/uL Normal 2.0-7.7 [facility] Comment on above: Performed By: #### L 500.4050, L100.0100 #### [facility] [address] [place], [address] Basophils/100 WBC (Bld) 0.7 % Normal 0-1 [facility] Comment on above: Performed By: #### L 500.4050, L100.0100 #### [facility] [address] [place], [address] Eosinophils/100 WBC (Bld) 0.0 % Normal 0-5 [facility] Comment on above: Performed By: #### L 500.4050, L100.0100 #### [facility] [address] [place], [address] Erythrocyte distribution width (RBC) [Ratio] 13.4 % Normal 11.6-14.6 [facility] Comment on above: Performed By: #### L 500.4050, L100.0100 #### [facility] [address] [place], [address] Hematocrit (Bld) [Volume fraction] 38.4 % Normal 37-47 [facility] Comment on above: Performed By: #### L 500.4050, L100.0100 #### [facility] [address] [place], [address] Hemoglobin (Bld) [Mass/Vol] 12.7 g/dL Normal 12.0-15.0 [facility] Comment on above: Performed By: #### L 500.4050, L100.0100 #### [facility] [address] [place], [address] IG% 0.500 Normal 0.0-0.9 [facility] Comment on above: Result Comment: IG% - Immature Granulocytes (promyelocytes, myelocytes and metamyelocytes) > 1% indicates that a LEFT SHIFT is Present. Performed By: #### L 500.4050, L100.0100 #### [facility] [address] [place], [address] Lymphocytes/100 WBC (Bld) 30.6 % Normal 19-41 [facility] Comment on above: Performed By: #### L 500.4050, L100.0100 #### [facility] [address] [place], [address] MCH (RBC) [Entitic mass] 27.0 pg Normal 27.0-32.0 [facility] Comment on above: Performed By: #### L 500.4050, L100.0100 #### [facility] [address] [place], [address] MCHC (RBC) [Mass/Vol] 33.1 g/dL Normal 32-36 [facility] Comment on above: Performed By: #### L 500.4050, L100.0100 #### [facility] [address] [place], [address] MCV (RBC) [Entitic vol] 81.7 fL Normal 81-99 [facility] Comment on above: Performed By: #### L 500.4050, L100.0100 #### [facility] [address] [place], [address] Monocytes/100 WBC (Bld) 6.1 % Normal 0-10 [facility] Comment on above: Performed By: #### L 500.4050, L100.0100 #### [facility] [address] [place], [address] Neutrophils/100 WBC (Bld) 62.1 % Normal 47-70 [facility] Comment on above: Performed By: #### L 500.4050, L100.0100 #### [facility] [address] [place], [address] Nucleated RBC (Bld) [#/Vol] 0 10*3/uL Normal 0-5 [facility] Comment on above: Performed By: #### L 500.4050, L100.0100 #### [facility] [address] [place], [address] Platelet mean volume (Bld) [Entitic vol] 9.6 fL Normal 6.2-12.0 [facility] Comment on above: Performed By: #### L 500.4050, L100.0100 #### [facility] [address] [place], [address] Platelets (Bld) [#/Vol] 213 10*3/uL Normal 150-450 [facility] Comment on above: Performed By: #### L 500.4050, L100.0100 #### [facility] [address] [place], [address] RBC (Bld) [#/Vol] 4.70 10*6/uL Normal 4.2-5.4 [facility] Comment on above: Performed By: #### L 500.4050, L100.0100 #### [facility] [address] [place], [address] RDW SD 39.9 fl Normal 35.1-43.9 [facility] Comment on above: Performed By: #### L 500.4050, L100.0100 #### [facility] [address] [place], [address] WBC (Bld) [#/Vol] 4.3 10*3/uL Low 4.4-11.0 [facility] Comment on above: Performed By: #### L 500.4050, L100.0100 #### [facility] [address] [place], [address] Carbon dioxide measurementOr dered By: Ghanshyam Puente on 06-11-2024 CO2 [Moles/Vol] 25.0 mmol/L 21.0-32.0 [facility] Chloride measurementOrdered By: Ghanshyam Puente on 06-11-2024 Chloride [Moles/Vol] 110 mmol/L High 98-107 [facility] Comprehensive Metabolic Prof ilon 06-11-2024 Albumin [Mass/Vol] 3.1 g/dL Low 3.2-5.0 [facility] Comment on above: Performed By: #### L 500.4050, L100.0100 #### [facility] [address] [place], [address] Albumin/Globulin [Mass ratio] 0.8 {ratio} Low 0.9-2.4 [facility] Comment on above: Performed By: #### L 500.4050, L100.0100 #### [facility] [address] [place], [address] ALK P 331 U/L High 45-117 [facility] Comment on above: Performed By: #### L 500.4050, L100.0100 #### [facility] [address] [place], [address] ALT [Catalytic activity/Vol] 430 U/L High 13-56 [facility] Comment on above: Performed By: #### L 500.4050, L100.0100 #### [facility] [address] [place], [address] AST [Catalytic activity/Vol] 271 U/L High 15-37 [facility] Comment on above: Performed By: #### L 500.4050, L100.0100 #### [facility] [address] [place], [address] Bilirubin [Mass/Vol] 1.20 mg/dL High 0.20-1.00 [facility] Comment on above: Result Comment: For patients on eltrombopag therapy, use of Dimension Wheeler TBIL is not recommended. Performed By: #### L 500.4050, L100.0100 #### [facility] [address] [place], [address] BUN/CRE 13.3 RATIO Normal 10-20 [facility] Comment on above: Performed By: #### L 500.4050, L100.0100 #### [facility] [address] [place], [address] CA,Total 8.6 mg/dL Normal 8.5-10.1 [facility] Comment on above: Performed By: #### L 500.4050, L100.0100 #### [facility] [address] [place], [address] Chloride [Moles/Vol] 110 mmol/L High 98-107 [facility] Comment on above: Performed By: #### L 500.4050, L100.0100 #### [facility] [address] [place], [address] CO2 [Moles/Vol] 25.0 mmol/L Normal 21.0-32.0 [facility] Comment on above: Performed By: #### L 500.4050, L100.0100 #### [facility] [address] [place], [address] Creatinine [Mass/Vol] 0.75 mg/dL Normal 0.55-1.02 [facility] Comment on above: Result Comment: The validity of the calculated GFR GFRAA in patients over 70 years has not been determined. Clinical correlation is essential. Performed By: #### L 500.4050, L100.0100 #### [facility] [address] [place], [address] ECRCL 118.46 ml/min Normal [facility] Comment on above: Performed By: #### L 500.4050, L100.0100 #### [facility] [address] [place], [address] EST GFR - AA 104 mL/min Normal >60 [facility] Comment on above: Result Comment: Afri can [place] GFR Calc Performed By: #### L 500.4050, L100.0100 #### [facility] [address] [place], [address] GAP 5 Normal 5-15 [facility] Comment on above: Performed By: #### L 500.4050, L100.0100 #### [facility] [address] [place], [address] GFR/1.73 sq M.predicted among non-blacks MDRD (S/P/Bld) [Vol rate/Area] 86 mL/min/{1.73_m2} Normal >60 [facility] Comment on above: Result Comment: Non- GFR Calc Performed By: #### L 500.4050, L100.0100 #### [facility] [address] [place], [address] Globulin (S) [Mass/Vol] 4.1 g/dL Normal 2.2-4.2 [facility] Comment on above: Performed By: #### L 500.4050, L100.0100 #### [facility] [address] [place], [address] Glucose [Mass/Vol] 90 mg/dL Normal 74-106 [facility] Comment on above: Performed By: #### L 500.4050, L100.0100 #### [facility] [address] [place], [address] Potassium [Moles/Vol] 3.5 mmol/L Normal 3.5-5.1 [facility] Comment on above: Performed By: #### L 500.4050, L100.0100 #### [facility] [address] [place], [address] Sodium [Moles/Vol] 140 mmol/L Normal 136-145 [facility] Comment on above: Performed By: #### L 500.4050, L100.0100 #### [facility] [address] [place], [address] T PROT 7.2 g/dL Normal 6.4-8.2 [facility] Comment on above: Performed By: #### L 500.4050, L100.0100 #### [facility] [address] [place], [address] Urea nitrogen [Mass/Vol] 10 mg/dL Normal 7-18 [facility] Comment on above: Performed By: #### L 500.4050, L100.0100 #### [facility] [address] [place], [address] Discharge Instructionon 3 Discharge Instruction [facility] Medical Records Department [address] [place] [address] Instructions for Home/Discharge Instructions 06/11/24 1028 MR#: [id number] Acct: [id number] Name: LING DIAS Rep #: [id number] : 1970 54 From: Ghanshyam Puente MD PCP: NOAH Lim Status:ADM IN Discharge Instructions Diet Discharge Diet: [...] Ghanshyam Puente Primary Care Provider: Charlee Humphries PATIENT FLOW COORDINATOR Consulting Providers: Kadie Ta Discharge Orders/Prescriptions Prescriptions: [...] DAILY Referrals / Follow Up: Charlee Humphries PATIENT FLOW COORDINATOR, PATIENT FLOW COORDINATOR-C [Primary Care Provider] - Within 1 Week Disposition Disposition (needs filled in before D/C Order can be placed): Home, Self Care 06/11/24 1030 Ghanshyam Puente MD CC: PATIENT FLOW COORDINATOR-C Charlee Humphreis; Dr. Kadie Ta MD Signed Normal [facility] Eosinophil percentageOrdered By: hGanshyam Puente on 06-11-2024 Eosinophils/100 WBC (Bld) 0.0 % 0-5 [facility] Erythrocyte distribution wid th ratioOrdered By: Ghanshaym Puente on 06-11-2024 Erythrocyte distribution width (RBC) [Ratio] 13.4 % 11.6-14.6 [facility] Erythrocyte distribution wid th standard deviationOrdered By: Ghanshyam Puente on 06-11-2024 Erythrocyte distribution width (RBC) [Entitic vol] 39.9 fL 35.1-43.9 [facility] Estimated glomerular filtrat ion rate (GFR) AmericanOrdered By: Ghanshyam Puente on 06-11-2024 Estimated GFR (MDRD) Amer 104 mL/min >60 [facility] Comment on above: GFR Calc Estimation of creatinine jorge aranceOrdered By: Ghanshyam Puente on 06-11-2024 Estimated Creatinine Clearance Calc 118.46 ml/min [facility] Glomerular filtration rate ( GFR) estimationOrdered By: Ghanshyam Puente on 06-11-2024 Estimated GFR (MDRD) Non-Af Amer 86 mL/min >60 [facility] Comment on above: Non- GFR Calc Glucose measurementOrdered B y: Ghanshyam Puente on 06-11-2024 Glucose [Mass/Vol] 90 mg/dL 74-106 [facility] Hematocrit Auto (Bld) [Volum e fraction]Ordered By: Ghanshyam Puente on 06-11-2024 Hematocrit (Bld) [Volume fraction] 38.4 % 37-47 [facility] Hemoglobin measurementOrdere d By: Ghanshyam Puente on 06-11-2024 Hemoglobin (Bld) [Mass/Vol] 12.7 g/dL 12.0-15.0 [facility] Immature granulocytes/100 WB C Auto (Bld)Ordered By: Ghanshyam Puente on 06-11-2024 Immature granulocytes/100 WBC (Bld) 0.500 % 0.0-0.9 [facility] Comment on above: IG% - Immature Granu locytes (promyelocytes, myelocytes and metamyelocytes) > 1% indicates that a LEFT SHIFT is Present. Laboratory - Chemistry and C hemistry - challengeOrdered By: Ghanshyam Puente on 06-11-2024 AST [Catalytic activity/Vol] 271 U/L High 15-37 [facility] Lymphocytes Auto (Unsp spec) [#/Vol]Ordered By: Ghanshyam Puente on 06-11-2024 Lymphocytes (Bld) [#/Vol] 1.31 10*3/uL 0.83-4.5 1 [facility] Lymphocytes/100 WBC Auto (Un sp spec)Ordered By: Ghanshyam Puente on 06-11-2024 Lymphocytes/100 WBC (Bld) 30.6 % 19-41 [facility] MCV (mean corpuscular volume ) determinationOrdered By: Ghanshyam Puente on 06-11-2024 MCV (RBC) [Entitic vol] 81.7 fL 81-99 [facility] Mean corpuscular hemoglobin (MCH) determinationOrdered By: Ghanshyam Puente on 06-11-2024 MCH (RBC) [Entitic mass] 27.0 pg 27.0-32.0 [facility] Mean corpuscular hemoglobin concentration (MCHC) determinationOrdered By: Ghanshyam Puente on 06-11-2024 MCHC (RBC) [Mass/Vol] 33.1 g/dL 32-36 [facility] Mean platelet volume determi nationOrdered By: Ghanshyam Puente on 06-11-2024 Platelet mean volume (Bld) [Entitic vol] 9.6 fL 6.2-12.0 [facility] Monocyte percentageOrdered B y: Ghanshyam Puente on 06-11-2024 Monocytes/100 WBC (Bld) 6.1 % 0-10 [facility] Neutrophil percentageOrdered By: Ghanshyam Puente on 06-11-2024 Neutrophils/100 WBC (Bld) 62.1 % 47-70 [facility] Nucleated red blood cell per centageOrdered By: Ghanshyam Puente on 06-11-2024 Nucleated RBC/100 WBC (Bld) [Ratio] 0 % 0-5 [facility] Platelet countOrdered By: Gina Puente on 06-11-2024 Platelets (Bld) [#/Vol] 213 10*3/uL 150-450 [facility] Potassium measurementOrdered By: Ghanshyam Puente on 06-11-2024 Potassium [Moles/Vol] 3.5 mmol/L 3.5-5.1 [facility] RBC Auto (Bld) [#/Vol]Ordere d By: Ghanshyam Puente on 06-11-2024 RBC (Bld) [#/Vol] 4.70 10*6/uL 4.2-5.4 [facility] Serum anion gap measurementO rdered By: Ghanshyam Puente on 06-11-2024 Anion gap [Moles/Vol] 5 mmol/L 5-15 [facility] Serum globulin measurementOr dered By: Ghanshyam Puente on 06-11-2024 Globulin (S) [Mass/Vol] 4.1 g/dL 2.2-4.2 [facility] Serum or plasma alanine umaña otransferase (ALT) measurementOrdered By: Ghanshyam Puente on 06-11-2024 ALT [Catalytic activity/Vol] 430 U/L High 13-56 [facility] Serum or plasma albumin eliel urement (mass/volume)Ordered By: Ghanshyam Puente on 06-11-2024 Albumin [Mass/Vol] 3.1 g/dL Low 3.2-5.0 [facility] Serum or plasma alkaline josefina sphatase measurementOrdered By: Ghanshyam Puente on 06-11-2024 ALP [Catalytic activity/Vol] 331 U/L High 45-117 [facility] Serum or plasma calcium eliel urement (mass/volume)Ordered By: Ghanshyam Puente on 06-11-2024 Calcium [Mass/Vol] 8.6 mg/dL 8.5-10.1 [facility] Serum or plasma creatinine m easurement (mass/volume)Ordered By: Ghanshyam Puente on 06-11-2024 Creatinine [Mass/Vol] 0.75 mg/dL 0.55-1.02 [facility] Comment on above: The validity of the calculated GFR & GFRAA in patients over 70 years has not been determined. Clinical correlation is essential. Serum or plasma urea nitroge n measurement (mass/volume)Ordered By: Ghanshyam Puente on 06-11-2024 Urea nitrogen [Mass/Vol] 10 mg/dL 7-18 [facility] Sodium levelOrdered By: Theo Puente on 06-11-2024 Sodium [Moles/Vol] 140 mmol/L 136-145 [facility] Total proteinOrdered By: Jose Antonio Puente on 06-11-2024 Protein [Mass/Vol] 7.2 g/dL 6.4-8.2 [facility] White blood cell (WBC) count Ordered By: Ghanshyam Puente on 06-11-2024 WBC (Bld) [#/Vol] 4.3 10*3/uL Low 4.4-11.0 [facility] Basic Metabolic Profile (BMP )on 06-10-2024 BUN/CRE 17.0 RATIO Normal 10-20 [facility] Comment on above: Performed By: #### L 300.3900, L501.5200, L500.4050, L501.2300, L500.2500, L100.0100, L501.9520, L500.3400 ####[facility] [address] [place], [address] CA,Total 8.4 mg/dL Low 8.5-10.1 [facility] Comment on above: Performed By: #### L 300.3900, L501.5200, L500.4050, L501.2300, L500.2500, L100.0100, L501.9520, L500.3400 ####[facility] [address] [place], [address] Chloride [Moles/Vol] 108 mmol/L High 98-107 [facility] Comment on above: Performed By: #### L 300.3900, L501.5200, L500.4050, L501.2300, L500.2500, L100.0100, L501.9520, L500.3400 ####[facility] [address] [place], [address] CO2 [Moles/Vol] 28.0 mmol/L Normal 21.0-32.0 [facility] Comment on above: Performed By: #### L 300.3900, L501.5200, L500.4050, L501.2300, L500.2500, L100.0100, L501.9520, L500.3400 ####[facility] [address] [place], [address] Creatinine [Mass/Vol] 0.82 mg/dL Normal 0.55-1.02 [facility] Comment on above: Result Comment: The validity of the calculated GFR GFRAA in patients over 70 years has not been determined. Clinical correlation is essential. Performed By: #### L 300.3900, L501.5200, L500.4050, L501.2300, L500.2500, L100.0100, L501.9520, L500.3400 ####[facility] [address] [place], [address] ECRCL 108.34 ml/min Normal [facility] Comment on above: Performed By: #### L 300.3900, L501.5200, L500.4050, L501.2300, L500.2500, L100.0100, L501.9520, L500.3400 ####[facility] [address] [address] [place], [place], [id number] EST GFR - AA 93 mL/min Normal >60 [facility] Comment on above: Result Comment: Afri can [place] GFR Calc Performed By: #### L 300.3900, L501.5200, L500.4050, L501.2300, L500.2500, L100.0100, L501.9520, L500.3400 ####[facility] [address] [place], [place], [phone] GAP 4 Low 5-15 [facility] Comment on above: Performed By: #### L 300.3900, L501.5200, L500.4050, L501.2300, L500.2500, L100.0100, L501.9520, L500.3400 ####[facility] [address] [place], [place], [phone] GFR/1.73 sq M.predicted among non-blacks MDRD (S/P/Bld) [Vol rate/Area] 77 mL/min/{1.73_m2} Normal >60 [facility] Comment on above: Result Comment: Non- GFR Calc Performed By: #### L 300.3900, L501.5200, L500.4050, L501.2300, L500.2500, L100.0100, L501.9520, L500.3400 ####[facility] [address] [place], [place], [phone] Glucose [Mass/Vol] 86 mg/dL Normal 74-106 [facility] Comment on above: Performed By: #### L 300.3900, L501.5200, L500.4050, L501.2300, L500.2500, L100.0100, L501.9520, L500.3400 ####[facility] [address] [place], [address] Potassium [Moles/Vol] 3.8 mmol/L Normal 3.5-5.1 [facility] Comment on above: Performed By: #### L 300.3900, L501.5200, L500.4050, L501.2300, L500.2500, L100.0100, L501.9520, L500.3400 ####[facility] [address] [place], [place], [phone] Sodium [Moles/Vol] 141 mmol/L Normal 136-145 [facility] Comment on above: Performed By: #### L 300.3900, L501.5200, L500.4050, L501.2300, L500.2500, L100.0100, L501.9520, L500.3400 ####[facility] [address] [place], [place], [phone] Urea nitrogen [Mass/Vol] 14 mg/dL Normal 7-18 [facility] Comment on above: Performed By: #### L 300.3900, L501.5200, L500.4050, L501.2300, L500.2500, L100.0100, L501.9520, L500.3400 ####[facility] [address] [place], [place], [phone] Bilirubin directOrdered By: Kadie Ta on 06-10-2024 Bilirubin.direct [Mass/Vol] 0.34 mg/dL High 0.00-0.30 [facility] CBC W/Diff, Automatedon 11-2 -2023 Absolute Lymph 0.95 X10 3/uL Normal 0.83-4.51 [facility] Comment on above: Performed By: #### L 300.3900, L501.5200, L500.4050, L501.2300, L500.2500, L100.0100, L501.9520, L500.3400 ####[facility] [address] [place], [address] Absolute Neut 2.8 X10 3/uL Normal 2.0-7.7 [facility] Comment on above: Performed By: #### L 300.3900, L501.5200, L500.4050, L501.2300, L500.2500, L100.0100, L501.9520, L500.3400 ####[facility] [address] [place], [address] Basophils/100 WBC (Bld) 0.5 % Normal 0-1 [facility] Comment on above: Performed By: #### L 300.3900, L501.5200, L500.4050, L501.2300, L500.2500, L100.0100, L501.9520, L500.3400 ####[facility] [address] [place], [address] Eosinophils/100 WBC (Bld) 0.0 % Normal 0-5 [facility] Comment on above: Performed By: #### L 300.3900, L501.5200, L500.4050, L501.2300, L500.2500, L100.0100, L501.9520, L500.3400 ####[facility] [address] [place], [address] Erythrocyte distribution width (RBC) [Ratio] 14.0 % Normal 11.6-14.6 [facility] Comment on above: Performed By: #### L 300.3900, L501.5200, L500.4050, L501.2300, L500.2500, L100.0100, L501.9520, L500.3400 ####[facility] [address] [place], [phone] Hematocrit (Bld) [Volume fraction] 39.2 % Normal 37-47 [facility] Comment on above: Performed By: #### L 300.3900, L501.5200, L500.4050, L501.2300, L500.2500, L100.0100, L501.9520, L500.3400 ####[facility] [address] [place], [phone] Hemoglobin (Bld) [Mass/Vol] 12.4 g/dL Normal 12.0-15.0 [facility] Comment on above: Performed By: #### L 300.3900, L501.5200, L500.4050, L501.2300, L500.2500, L100.0100, L501.9520, L500.3400 ####[facility] [address] [place], [address] IG% 0.500 Normal 0.0-0.9 [facility] Comment on above: Result Comment: IG% - Immature Granulocytes (promyelocytes, myelocytes and metamyelocytes) > 1% indicates that a LEFT SHIFT is Present. Performed By: #### L 300.3900, L501.5200, L500.4050, L501.2300, L500.2500, L100.0100, L501.9520, L500.3400 ####[facility] [address] [place], [address] Lymphocytes/100 WBC (Bld) 23.5 % Normal 19-41 [facility] Comment on above: Performed By: #### L 300.3900, L501.5200, L500.4050, L501.2300, L500.2500, L100.0100, L501.9520, L500.3400 ####[facility] [address] [place], [address] MCH (RBC) [Entitic mass] 26.8 pg Low 27.0-32.0 [facility] Comment on above: Performed By: #### L 300.3900, L501.5200, L500.4050, L501.2300, L500.2500, L100.0100, L501.9520, L500.3400 ####[facility] [address] [place], [address] MCHC (RBC) [Mass/Vol] 31.6 g/dL Low 32-36 [facility] Comment on above: Performed By: #### L 300.3900, L501.5200, L500.4050, L501.2300, L500.2500, L100.0100, L501.9520, L500.3400 ####[facility] [address] [place], [address] MCV (RBC) [Entitic vol] 84.8 fL Normal 81-99 [facility] Comment on above: Performed By: #### L 300.3900, L501.5200, L500.4050, L501.2300, L500.2500, L100.0100, L501.9520, L500.3400 ####[facility] [address] [place], [address] Monocytes/100 WBC (Bld) 5.4 % Normal 0-10 [facility] Comment on above: Performed By: #### L 300.3900, L501.5200, L500.4050, L501.2300, L500.2500, L100.0100, L501.9520, L500.3400 ####[facility] [address] [place], [address] Neutrophils/100 WBC (Bld) 70.1 % High 47-70 [facility] Comment on above: Performed By: #### L 300.3900, L501.5200, L500.4050, L501.2300, L500.2500, L100.0100, L501.9520, L500.3400 ####[facility] [address] [place], [address] Nucleated RBC (Bld) [#/Vol] 0 10*3/uL Normal 0-5 [facility] Comment on above: Performed By: #### L 300.3900, L501.5200, L500.4050, L501.2300, L500.2500, L100.0100, L501.9520, L500.3400 ####[facility] [address] [place], [address] Platelet mean volume (Bld) [Entitic vol] 9.4 fL Normal 6.2-12.0 [facility] Comment on above: Performed By: #### L 300.3900, L501.5200, L500.4050, L501.2300, L500.2500, L100.0100, L501.9520, L500.3400 ####[facility] [address] [place], [address] Platelets (Bld) [#/Vol] 187 10*3/uL Normal 150-450 [facility] Comment on above: Performed By: #### L 300.3900, L501.5200, L500.4050, L501.2300, L500.2500, L100.0100, L501.9520, L500.3400 ####[facility] [address] [place], [address] RBC (Bld) [#/Vol] 4.62 10*6/uL Normal 4.2-5.4 [facility] Comment on above: Performed By: #### L 300.3900, L501.5200, L500.4050, L501.2300, L500.2500, L100.0100, L501.9520, L500.3400 ####[facility] [address] [place], [place], [phone] RDW SD 43.7 fl Normal 35.1-43.9 [facility] Comment on above: Performed By: #### L 300.3900, L501.5200, L500.4050, L501.2300, L500.2500, L100.0100, L501.9520, L500.3400 ####[facility] [address] [place], [address] WBC (Bld) [#/Vol] 4.1 10*3/uL Low 4.4-11.0 [facility] Comment on above: Performed By: #### L 300.3900, L501.5200, L500.4050, L501.2300, L500.2500, L100.0100, L501.9520, L500.3400 ####[facility] [address] [place], [place], [phone] Comprehensive Metabolic Prof ilon 06-10-2024 Albumin/Globulin [Mass ratio] 0.8 {ratio} Low 0.9-2.4 [facility] Comment on above: Performed By: #### L 300.3900, L501.5200, L500.4050, L501.2300, L500.2500, L100.0100, L501.9520, L500.3400 ####[facility] [address] [place], [address] International normalized rat io (INR) calculationOrdered By: Kadie Ta on 06-10-2024 INR Coag (Bld) [Relative time] 1.0 {INR} [facility] Liver Profileon 06-10-2024 Albumin [Mass/Vol] 3.2 g/dL Normal 3.2-5.0 [facility] Comment on above: Performed By: #### L 300.3900, L501.5200, L500.4050, L501.2300, L500.2500, L100.0100, L501.9520, L500.3400 ####[facility] [address] [place], [address] ALK P 180 U/L High 45-117 [facility] Comment on above: Performed By: #### L 300.3900, L501.5200, L500.4050, L501.2300, L500.2500, L100.0100, L501.9520, L500.3400 ####[facility] [address] [place], [address] ALT [Catalytic activity/Vol] 193 U/L High 13-56 [facility] Comment on above: Performed By: #### L 300.3900, L501.5200, L500.4050, L501.2300, L500.2500, L100.0100, L501.9520, L500.3400 ####[facility] [address] [place], [address] AST [Catalytic activity/Vol] 166 U/L High 15-37 [facility] Comment on above: Performed By: #### L 300.3900, L501.5200, L500.4050, L501.2300, L500.2500, L100.0100, L501.9520, L500.3400 ####[facility] [address] [place], [address] Bilirubin [Mass/Vol] 1.10 mg/dL High 0.20-1.00 [facility] Comment on above: Result Comment: For patients on eltrombopag therapy, use of Dimension Wheeler TBIL is not recommended. Performed By: #### L 300.3900, L501.5200, L500.4050, L501.2300, L500.2500, L100.0100, L501.9520, L500.3400 ####[facility] [address] [place], [place], [phone] Bilirubin.direct [Mass/Vol] 0.34 mg/dL High 0.00-0.30 [facility] Comment on above: Performed By: #### L 300.3900, L501.5200, L500.4050, L501.2300, L500.2500, L100.0100, L501.9520, L500.3400 ####[facility] [address] [place], [place], [phone] Globulin (S) [Mass/Vol] 3.8 g/dL Normal 2.2-4.2 [facility] Comment on above: Performed By: #### L 300.3900, L501.5200, L500.4050, L501.2300, L500.2500, L100.0100, L501.9520, L500.3400 ####[facility] [address] [place], [place], [phone] T PROT 7.0 g/dL Normal 6.4-8.2 [facility] Comment on above: Performed By: #### L 300.3900, L501.5200, L500.4050, L501.2300, L500.2500, L100.0100, L501.9520, L500.3400 ####[facility] [address] [place], [place], [phone] Magnesiumon 06-10-2024 Magnesium [Mass/Vol] 2.1 mg/dL Normal 1.6-2.6 [facility] Comment on above: Performed By: #### L 300.3900, L501.5200, L500.4050, L501.2300, L500.2500, L100.0100, L501.9520, L500.3400 ####[facility] [address] [place], [address] Magnesium measurementOrdered By: Kadie Ta on 06-10-2024 Magnesium [Mass/Vol] 2.1 mg/dL 1.6-2.6 [facility] Phosphoruson 06-10-2024 Phosphate [Mass/Vol] 2.9 mg/dL Normal 2.5-4.9 [facility] Comment on above: Performed By: #### L 300.3900, L501.5200, L500.4050, L501.2300, L500.2500, L100.0100, L501.9520, L500.3400 ####[facility] [address] [place], [place], [phone] Phosphorus measurementOrdere d By: Kadie Ta on 06-10-2024 Phosphorus Level 2.9 mg/dL 2.5-4.9 [facility] Prothrombin Time w/INRon INR Coag (PPP) [Relative time] 1.0 {INR} Normal [facility] Comment on above: Performed By: #### L 300.3900, L501.5200, L500.4050, L501.2300, L500.2500, L100.0100, L501.9520, L500.3400 ####[facility] [address] [place], [place], [phone] PT Coag (PPP) [Time] 13.5 s Normal 11.7-14.9 [facility] Comment on above: Performed By: #### L 300.3900, L501.5200, L500.4050, L501.2300, L500.2500, L100.0100, L501.9520, L500.3400 ####[facility] [address] [place], [place], [phone] Prothrombin timeOrdered By: Kadie Ta on 06-10-2024 PT Coag (PPP) [Time] 13.5 s 11.7-14.9 [facility] TSH QnOrdered By: Kadie ortega on 06-10-2024 Thyroid Stimulating Hormone (TSH) 2.440 uIU/mL 0.358-3.740 [facility] Thyroid Stim Hormone (TSH)on 06-10-2024 TSH 2.440 uIU/mL Normal 0.358-3.740 [facility] Comment on above: Performed By: #### L 300.3900, L501.5200, L500.4050, L501.2300, L500.2500, L100.0100, L501.9520, L500.3400 ####[facility] [address] [place], [address] Triglycerideson 06-10-2024 Triglyceride [Mass/Vol] 107 mg/dL Normal [facility] Comment on above: Result Comment: The drugs N-Acetylcysteine and Metamizole may falsely depress this assay. Serum Triglycerides Reference Interval Normal <150 mg/dL Borderline high 150 - 199 mg/dL High 200 - 499 mg/dL Very High > or = 500 mg/dL Performed By: #### L 501.5000 ####[facility] [address] [place], [place], [phone] Triglycerides measurementOrd ered By: Ghanshyam Puente on 06-10-2024 Triglyceride [Mass/Vol] 107 mg/dL <199 [facility] Comment on above: The drugs N-Acetylcy steine and Metamizole may falsely depress this assay.Serum Triglycerides Reference Interval Normal <150 mg/dL Borderline high 150 - 199 mg/dL High 200 - 499 mg/dL Very High > or = 500 mg/dL Bilirubin Test strip Ql (U)O rdered By: Marquise Brown on 06-09-2024 Bilirubin Ql (U) Negative Negative [facility] CBC W/Diff, Automatedon 05-14 Absolute Lymph 1.23 X10 3/uL Normal 0.83-4.51 [facility] Comment on above: Performed By: #### L 500.4050, L501.2450, L100.0100, L501.4020 ####[facility] [address] [place], [address] Absolute Neut 4.2 X10 3/uL Normal 2.0-7.7 [facility] Comment on above: Performed By: #### L 500.4050, L501.2450, L100.0100, L501.4020 ####[facility] [address] [place], [address] Basophils/100 WBC (Bld) 0.5 % Normal 0-1 [facility] Comment on above: Performed By: #### L 500.4050, L501.2450, L100.0100, L501.4020 ####[facility] [address] [place], [address] Eosinophils/100 WBC (Bld) 0.0 % Normal 0-5 [facility] Comment on above: Performed By: #### L 500.4050, L501.2450, L100.0100, L501.4020 ####[facility] [address] [place], [address] Erythrocyte distribution width (RBC) [Ratio] 13.8 % Normal 11.6-14.6 [facility] Comment on above: Performed By: #### L 500.4050, L501.2450, L100.0100, L501.4020 ####[facility] [address] [place], [address] Hematocrit (Bld) [Volume fraction] 43.2 % Normal 37-47 [facility] Comment on above: Performed By: #### L 500.4050, L501.2450, L100.0100, L501.4020 ####[facility] [address] [place], [address] Hemoglobin (Bld) [Mass/Vol] 14.0 g/dL Normal 12.0-15.0 [facility] Comment on above: Performed By: #### L 500.4050, L501.2450, L100.0100, L501.4020 ####[facility] [address] [place], [address] IG% 0.300 Normal 0.0-0.9 [facility] Comment on above: Result Comment: IG% - Immature Granulocytes (promyelocytes, myelocytes and metamyelocytes) > 1% indicates that a LEFT SHIFT is Present. Performed By: #### L 500.4050, L501.2450, L100.0100, L501.4020 ####[facility] [address] [place], [address] Lymphocytes/100 WBC (Bld) 21.4 % Normal 19-41 [facility] Comment on above: Performed By: #### L 500.4050, L501.2450, L100.0100, L501.4020 ####[facility] [address] [place], [address] MCH (RBC) [Entitic mass] 27.0 pg Normal 27.0-32.0 [facility] Comment on above: Performed By: #### L 500.4050, L501.2450, L100.0100, L501.4020 ####[facility] [address] [place], [address] MCHC (RBC) [Mass/Vol] 32.4 g/dL Normal 32-36 [facility] Comment on above: Performed By: #### L 500.4050, L501.2450, L100.0100, L501.4020 ####[facility] [address] [place], [address] MCV (RBC) [Entitic vol] 83.2 fL Normal 81-99 [facility] Comment on above: Performed By: #### L 500.4050, L501.2450, L100.0100, L501.4020 ####[facility] [address] [place], [address] Monocytes/100 WBC (Bld) 5.1 % Normal 0-10 [facility] Comment on above: Performed By: #### L 500.4050, L501.2450, L100.0100, L501.4020 ####[facility] [address] [place], [address] Neutrophils/100 WBC (Bld) 72.7 % High 47-70 [facility] Comment on above: Performed By: #### L 500.4050, L501.2450, L100.0100, L501.4020 ####[facility] [address] [place], [address] Nucleated RBC (Bld) [#/Vol] 0 10*3/uL Normal 0-5 [facility] Comment on above: Performed By: #### L 500.4050, L501.2450, L100.0100, L501.4020 ####[facility] [address] [place], [address] Platelet mean volume (Bld) [Entitic vol] 9.8 fL Normal 6.2-12.0 [facility] Comment on above: Performed By: #### L 500.4050, L501.2450, L100.0100, L501.4020 ####[facility] [address] [place], [address] Platelets (Bld) [#/Vol] 216 10*3/uL Normal 150-450 [facility] Comment on above: Performed By: #### L 500.4050, L501.2450, L100.0100, L501.4020 ####[facility] [address] [place], [address] RBC (Bld) [#/Vol] 5.19 10*6/uL Normal 4.2-5.4 [facility] Comment on above: Performed By: #### L 500.4050, L501.2450, L100.0100, L501.4020 ####[facility] [address] [place], [address] RDW SD 41.7 fl Normal 35.1-43.9 [facility] Comment on above: Performed By: #### L 500.4050, L501.2450, L100.0100, L501.4020 ####[facility] [address] [place], [address] WBC (Bld) [#/Vol] 5.7 10*3/uL Normal 4.4-11.0 [facility] Comment on above: Performed By: #### L 500.4050, L501.2450, L100.0100, L501.4020 ####[facility] [address] [place], [address] Comprehensive Metabolic Prof ilon 06-09-2024 Albumin [Mass/Vol] 3.6 g/dL Normal 3.2-5.0 [facility] Comment on above: Order Comment: 'TROP ' Serial specimen #1, #2 or #3: 1 Performed By: #### L 500.4050, L501.2450, L100.0100, L501.4020 ####[facility] [address] [place], [address] Albumin/Globulin [Mass ratio] 0.8 {ratio} Low 0.9-2.4 [facility] Comment on above: Order Comment: 'TROP ' Serial specimen #1, #2 or #3: 1 Performed By: #### L 500.4050, L501.2450, L100.0100, L501.4020 ####[facility] [address] [place], [address] ALK P 156 U/L High 45-117 [facility] Comment on above: Order Comment: 'TROP ' Serial specimen #1, #2 or #3: 1 Performed By: #### L 500.4050, L501.2450, L100.0100, L501.4020 ####[facility] [address] [place], [address] ALT [Catalytic activity/Vol] 73 U/L High 13-56 [facility] Comment on above: Order Comment: 'TROP ' Serial specimen #1, #2 or #3: 1 Performed By: #### L 500.4050, L501.2450, L100.0100, L501.4020 ####[facility] [address] [place], [address] AST [Catalytic activity/Vol] 77 U/L High 15-37 [facility] Comment on above: Order Comment: 'TROP ' Serial specimen #1, #2 or #3: 1 Performed By: #### L 500.4050, L501.2450, L100.0100, L501.4020 ####[facility] [address] [place], [address] Bilirubin [Mass/Vol] 0.80 mg/dL Normal 0.20-1.00 [facility] Comment on above: Order Comment: 'TROP ' Serial specimen #1, #2 or #3: 1 Result Comment: For patients on eltrombopag therapy, use of Dimension Wheeler TBIL is not recommended. Performed By: #### L 500.4050, L501.2450, L100.0100, L501.4020 ####[facility] [address] [place], [address] BUN/CRE 19.0 RATIO Normal 10-20 [facility] Comment on above: Order Comment: 'TROP ' Serial specimen #1, #2 or #3: 1 Performed By: #### L 500.4050, L501.2450, L100.0100, L501.4020 ####[facility] [address] [place], [address] CA,Total 8.7 mg/dL Normal 8.5-10.1 [facility] Comment on above: Order Comment: 'TROP ' Serial specimen #1, #2 or #3: 1 Performed By: #### L 500.4050, L501.2450, L100.0100, L501.4020 ####[facility] [address] [place], [address] Chloride [Moles/Vol] 109 mmol/L High 98-107 [facility] Comment on above: Order Comment: 'TROP ' Serial specimen #1, #2 or #3: 1 Performed By: #### L 500.4050, L501.2450, L100.0100, L501.4020 ####[facility] [address] [place], [address] CO2 [Moles/Vol] 26.0 mmol/L Normal 21.0-32.0 [facility] Comment on above: Order Comment: 'TROP ' Serial specimen #1, #2 or #3: 1 Performed By: #### L 500.4050, L501.2450, L100.0100, L501.4020 ####[facility] [address] [place], [address] Creatinine [Mass/Vol] 0.89 mg/dL Normal 0.55-1.02 [facility] Comment on above: Order Comment: 'TROP ' Serial specimen #1, #2 or #3: 1 Result Comment: The validity of the calculated GFR GFRAA in patients over 70 years has not been determined. Clinical correlation is essential. Performed By: #### L 500.4050, L501.2450, L100.0100, L501.4020 ####[facility] [address] [place], [address] ECRCL 98.98 ml/min Normal [facility] Comment on above: Order Comment: 'TROP ' Serial specimen #1, #2 or #3: 1 Performed By: #### L 500.4050, L501.2450, L100.0100, L501.4020 ####[facility] [address] [place], [address] EST GFR - AA 85 mL/min Normal >60 [facility] Comment on above: Order Comment: 'TROP ' Serial specimen #1, #2 or #3: 1 Result Comment: Afri can [place] GFR Calc Performed By: #### L 500.4050, L501.2450, L100.0100, L501.4020 ####[facility] [facility] [address] [place], [address] GAP 5 Normal 5-15 [facility] Comment on above: Order Comment: 'TROP ' Serial specimen #1, #2 or #3: 1 Performed By: #### L 500.4050, L501.2450, L100.0100, L501.4020 ####[facility] [address] [place], [address] GFR/1.73 sq M.predicted among non-blacks MDRD (S/P/Bld) [Vol rate/Area] 70 mL/min/{1.73_m2} Normal >60 [facility] Comment on above: Order Comment: 'TROP ' Serial specimen #1, #2 or #3: 1 Result Comment: Non- GFR Calc Performed By: #### L 500.4050, L501.2450, L100.0100, L501.4020 ####[facility] [address] [place], [address] Globulin (S) [Mass/Vol] 4.3 g/dL High 2.2-4.2 [facility] Comment on above: Order Comment: 'TROP ' Serial specimen #1, #2 or #3: 1 Performed By: #### L 500.4050, L501.2450, L100.0100, L501.4020 ####[facility] [address] [place], [address] Glucose [Mass/Vol] 98 mg/dL Normal 74-106 [facility] Comment on above: Order Comment: 'TROP ' Serial specimen #1, #2 or #3: 1 Performed By: #### L 500.4050, L501.2450, L100.0100, L501.4020 ####[facility] [address] [place], [address] Potassium [Moles/Vol] 3.8 mmol/L Normal 3.5-5.1 [facility] Comment on above: Order Comment: 'TROP ' Serial specimen #1, #2 or #3: 1 Performed By: #### L 500.4050, L501.2450, L100.0100, L501.4020 ####[facility] [address] [place], [address] Sodium [Moles/Vol] 140 mmol/L Normal 136-145 [facility] Comment on above: Order Comment: 'TROP ' Serial specimen #1, #2 or #3: 1 Performed By: #### L 500.4050, L501.2450, L100.0100, L501.4020 ####[facility] [address] [place], [address] T PROT 7.9 g/dL Normal 6.4-8.2 [facility] Comment on above: Order Comment: 'TROP ' Serial specimen #1, #2 or #3: 1 Performed By: #### L 500.4050, L501.2450, L100.0100, L501.4020 ####[facility] [address] [place], [address] Urea nitrogen [Mass/Vol] 17 mg/dL Normal 7-18 [facility] Comment on above: Order Comment: 'TROP ' Serial specimen #1, #2 or #3: 1 Performed By: #### L 500.4050, L501.2450, L100.0100, L501.4020 ####[facility] [address] [place], [address] Emergency Department Summary on 06-09-2024 Emergency Department Summary [facility] Medical Records Department [address] [place] [address] Emergency Department Summary 06/09/24 MR#: [id number] Acct: [id number] Name: LING DIAS Rep #: [id number] : 1970 54 From: Marquise Brown DO PCP: Charlee Humphries, PATIENT FLOW COORDINATOR-C Status:ADM IN Location: [place] [address] HPI History of Present Illness Chief Complaint: [...] intact Psych: Cooperative, appropriate mood and affect [facility] Medical History (Updated 06/09/24 @ 17:39 by [...] (Updated 11/21/17 @ 12:03 by Millicent Morris PATIENT FLOW COORDINATOR, PATIENT FLOW COORDINATOR-C) Smoking Status: Never smoker alcohol intake: never [...] for pancreat (more content not included)... Normal [facility] Epithelial cells.squamous LM Ql (Urine sed)Ordered By: Marquise Brown on 06-09-2024 Epithelial cells.squamous LM.HPF (Urine sed) [#/Area] 0 /[HPF] 5-10 [facility] Gallbladderon 06-09-2024 Gallbladder [facility] Imaging Services [address] [place] [address] Gallbladder MR#: [id number] Acct: [id number] Name: LING DIAS Rep #: [id number] : 1970 F 54 From: Tomasz Salgado MD PCP: Charlee Humphries, PATIENT FLOW COORDINATOR-C Status: REG ER Study: Gallbladder Date of Exam: 06/09/24 Exam# [id number] Ordering Dr: Marquise Brown DO [id number] EXAM: US ABDOMEN LIMITED, GALLBLADDER CLINICAL INDICATION: [...] Signed: Tomasz Salgado MD at 15:52 EST , CC: PATIENT FLOW COORDINATORLetitiaC Charlee Humphries; Dr. Marquise Brown, DO Gun Examiner: Signed Normal [facility] Glucose Ql (U)Ordered By: Adithya Brown on 06-09-2024 Urine Glucose (UA) Normal mg/dl Normal [facility] H AND P Exam - Hospitaliston 06-09-2024 H&P Exam - Hospitalist [facility] Medical Records Department [address] [place] [address] H P Exam - Hospitalist 06/09/24 1620 MR#: [id number] Acct: [id number] Name: LING DIAS Rep #: [id number] : 1970 54 From: Kadie Ta MD PCP: NOAH Lim Status:ADM [facility] - General General Date of Admission: [...] morphine sulfate, ondansetron, 1 L of fluid. [facility] Medical History (Updated 06/09/24 @ 12:06 by [...] 11/21/17 @ 12:03 by Millicent Morris NP, PATIENT FLOW COORDINATOR-C) Smoking Status: Smoker, status unknown alcohol intake: [...] (Auto) 72.7 H, Lymph % (Auto) 21.4, Antelope % (Auto) 5.1, Eos % (Auto) 0.0, [...] Clarity Clear, Urine pH 6.0, Ur Specific [place] 1.020, U rine Protein 15 H, Urine Glucose (UA) Normal, Urine Ketones Negative, Urine Occult Blood Negative, Urine Nitrite Ne (more content not included)... Normal [facility] Ketones Test strip Ql (U)Ord ered By: Marquise Brown on 06-09-2024 Ketones Ql (U) Negative Negative [facility] L501.4020on 06-09-2024 TROPONIN-I HS 3 pg/mL Normal 3.0-54.0 [facility] Comment on above: Order Comment: 'TROP ' Serial specimen #1, #2 or #3: 1 Result Comment: Faye curran Note: New Test Units and Gender Specific Reference Ranges. For more information see Policy Stat Procedure Wheeler High Sensitivity Troponin (TNIH) and attachments. Performed By: #### L 500.4050, L501.2450, L100.0100, L501.4020 ####[facility] [address] [place], [address] Lipaseon 06-09-2024 Lipase [Catalytic activity/Vol] 8593 U/L High 13-75 [facility] Comment on above: Order Comment: 'TROP ' Serial specimen #1, #2 or #3: 1 Result Comment: Plea se note: LIPASE revised reference range effective 22. New Lipase methodology. Expected to produce lower values than the previous assay method. NEW Reference Range: 13 - 75 U/L Performed By: #### L 500.4050, L501.2450, L100.0100, L501.4020 ####[facility] [address] [place], [address] Lipase measurementOrdered By : Marquise Brown on 06-09-2024 Lipase [Catalytic activity/Vol] 8593 U/L High 13-75 [facility] Comment on above: Please note:LIPASE r evised reference range effective 22. New Lipase methodology. Expected to produce lower values than the previous assay method. NEW Reference Range: 13 - 75 U/L Microscopic analysis of urin e for red blood cells (RBC)Ordered By: Marquise Brown on 06-09-2024 Urine RBC 0 SEEN /hpf 0-5 [facility] Mucus LM Ql (Urine sed)Order ed By: Marquise Brown on 06-09-2024 Mucus Ql (Urine sed) 0 SEEN /hpf [facility] Nitrite Test strip Ql (U)Ord ered By: Marquise Brown on 06-09-2024 Nitrite Ql (U) Negative Negative [facility] Protein Test strip Ql (U)Ord ered By: Marquise Brown on 06-09-2024 Protein Ql (U) 15 mg/dl High Negative [facility] Troponin IOrdered By: Marquise Brown on 06-09-2024 Troponin I High Sensitivity 3 pg/mL 3.0-54.0 [facility] Comment on above: Please Note: New Nae t Units and Gender Specific Reference Ranges. For more information see Policy Stat Procedure Wheeler High Sensitivity Troponin (TNIH) and attachments. Urinalysis, Completeon 06-09 EPI,SQUAMOUS 0-5 SEEN Normal 5-10 [facility] Comment on above: Order Comment: CLEAN CATCH Performed By: #### L 400.0001 ####[facility] [address] [facility] [address] BACTERIA 0 SEEN Normal None Seen [facility] Comment on above: Order Comment: CLEAN CATCH Performed By: #### L 400.0001 ####[facility] [address] [place], [address] Mucus Ql (Urine sed) 0 SEEN Normal [facility] Comment on above: Order Comment: CLEAN CATCH Performed By: #### L 400.0001 ####[facility] [address] [place], [address] RBC 0 SEEN Normal 0-5 [facility] Comment on above: Order Comment: CLEAN CATCH Performed By: #### L 400.0001 ####[facility] [address] [place], [address] WBC 0 SEEN Normal 0-5 [facility] Comment on above: Order Comment: CLEAN CATCH Performed By: #### L 400.0001 ####[facility] [address] [place], [address] Urine blood detectionOrdered By: Marquise Brown on 06-09-2024 Urine Occult Blood Negative Negative [facility] Urine clarityOrdered By: Jame Brown on 06-09-2024 Clarity (U) Clear Clear [facility] Urine color determinationOrd ered By: Marquise Brown on 11-28-2024 Color (U) Yellow Yellow [facility] Urine leukocyte esterase det ection by dipstickOrdered By: Marquise Brown on 06-09-2024 Leukocyte esterase Test strip Ql (U) 25 /ul High Negative [facility] Urine pHOrdered By: Marquise Moise nelsonIeshat on 06-09-2024 pH (U) 6.0 [pH] 5.0 - 8.0 [facility] Urine sediment bacteria coun t by microscopy (number/high power field)Ordered By: Marquise Brown on 06-09-2024 Bacteria LM.HPF (Urine sed) [#/Area] 0 /[HPF] None Seen [facility] Urine specific gravity measu rementOrdered By: Marquise Brown on 06-09-2024 Specific gravity (U) [Rel density] 1.020 1.002-1.030 [facility] Urobilinogen Ql (U)Ordered B y: Marquise Brown on 06-09-2024 Urobilinogen (U) [Mass/Vol] 1 mg/dL High Normal [facility] White blood cell countOrdere d By: Marquise Shellt on 06-09-2024 Urine WBC 0 SEEN /hpf 0-5 [facility] Bacteria Ur Culton 4 Bacteria identified [...] , Intermediate >32 , Resistant >64 Abnormal [facility] Comment on above: Performed By: #### 6 30-4 ####[facility] LABIA [id number] [place] [id number] [place] [facility] CNOVon 05-23-2024 CNOV Office Visit (UCWSTR ) LING DIAS ([id number]) 1970 F Date Time Provider Department 05/23/24 5:00 PM MIN HAMEED UCWSTR During your visit today, we recorded the following information about you: Temperature Pulse Respiration Blood pressure 97.5 degrees 95/minute 20/minute 140/92 Weight 121.9 kg Min Hameed APRN.CNP 05/23/2024 5:01 PM Signed Subjective HPI Nontoxic-appearing [...] Lymphadenopathy: Head: (more content not included)... Normal [facility] UA DIP, URINE (POC)on 2023 BILIRUBIN UA (POCT) Negative Negative [facility] CLARITY UA (POCT) Cloudy [facility] COLOR UA (POCT) Yellow [facility] GLUCOSE UA (POCT) Negative Negative mg/dL [facility] Hemoglobin Ql (U) Small Abnormal Negative [facility] Interpretation and review of laboratory results Abnormal [facility] KETONE UA (POCT) Negative Negative mg/dL [facility] LEUKOCYTES UA (POCT) Moderate Abnormal Negative [facility]IT[facility] (POCT) Positive Abnormal Negative [facility] PH UA (POCT) 5.5 4.5 - 8.0 [facility] Protein Ql (U) Negative Negative mg/dL [facility] SPECIFIC GRAVITY UA (POCT) 1.025 1 .005 - 1.030 [facility] UROBILINOGEN UA (POCT) 0.2 Kriss l E.U./dL [facility] Location:[address], [place], [place], [address] [place] [address] POINT OF CARE [facility] CNPNon 05-04-2024 CNPN Telephone (UCWSTR) LING DIAS ([id number]) 1970 F Date Time Provider Department 05/04/24 MAXIMINO JULIAN [facility] During your visit today, we recorded the following information about you: Maximino Julian MD 05/04/2024 7:11 AM Signed Urine culture did not show a clear infection. Finish antibiotic and follow up with PCP, urology, or EQUIPMENT TESTER for recheck. Brooke Griggs MA 05/04/2024 7:24 [...] Status:Closed by BROOKE GRIGGS on 05/04/24 Normal [facility] Bacteria Ur Culton 4 Bacteria identified Cx Nom (U) ORGANISM ID: 1 >=100,000 CFU/ml Mixed microbiota No further workup. Mixed microbiota can be due to???urine???contamin ation with skin bacteria at time of collection or presence of a long-term urinary catheter. If a new culture is needed, please consider re-education of the patient on proper midstream collection technique or straight catheterization for???urine???collect ion. Normal [facility] Comment on above: Performed By: #### 6 30-4 ####[facility] MANDIE [id number] [place] [id number] [place] CNOVon 05-02-2024 CNOV Office Visit (UCWSTR ) LING DIAS ([id number]) 1970 F Date Time Provider Department 05/02/24 5:00 PM FABRICIO GARCIA [facility] During your visit today, we recorded the following information about you: Temperature Pulse Respiration Blood pressure 98 degrees 104/minute 16/minute 122/70 Weight 122.2 kg Fabricio Garcia PA 05/02/2024 4:47 PM Signed This note was created using Tax [employer]. Subjective Ling Dias is a 53 year [...] were answe (more content not included)... Normal [facility] UA DIP, URINE (POC)on 2023 BILIRUBIN UA (POCT) Small Abnormal Negative [facility] CLARITY UA (POCT) Clear [facility] COLOR UA (POCT) Yellow [facility] GLUCOSE UA (POCT) Negative Negative mg/dL [facility] Hemoglobin Ql (U) Small Abnormal Negative [facility] Interpretation and review of laboratory results Abnormal [facility] KETONE UA (POCT) Negative Negative mg/dL [facility] LEUKOCYTES UA (POCT) Small Abnormal Negative [facility] NITRITE UA (POCT) Negative Negative [facility] PH UA (POCT) 5.5 4.5 - 8.0 [facility] Protein Ql (U) Trace Abnormal Negative mg/dL [facility] SPECIFIC GRAVITY UA (POCT) >=1.030 1 .005 - 1.030 [facility] UROBILINOGEN UA (POCT) 0.2 Kriss l E.U./dL [facility] Location:[address], [place], [address] [facility] POINT OF CARE [facility] UA DIP, URINE (POC)on 2023 BILIRUBIN UA (POCT) Negative Negative [facility] CLARITY UA (POCT) Clear [facility] COLOR UA (POCT) Yellow [facility] GLUCOSE UA (POCT) Negative Negative mg/dL [facility] Hemoglobin Ql (U) Large Abnormal Negative [facility] Interpretation and review of laboratory results Abnormal [facility] KETONE UA (POCT) Negative Negative mg/dL [facility] LEUKOCYTES UA (POCT) Small Abnormal Negative [facility] NITRITE UA (POCT) Positive Abnormal Negative [facility] PH UA (POCT) 6.0 4.5 - 8.0 [facility] Protein Ql (U) 30 mg/dL Abnormal Negative [facility] SPECIFIC GRAVITY UA (POCT) 1.020 1 .005 - 1.030 [facility] UROBILINOGEN UA (POCT) 0.2 Kriss l E.U./dL [facility] Location:[address], [place], [place], [address] [place] [address] POINT OF CARE [facility] MA MAMMOGRAM SCREENING BILAT ERAL W/TOMOon 09-28-2023 [place] MAMMOGRAM SCREENING BILATERAL W/AMINTA ORIGINAL FROM: JUAN [address] [address] PROCEDURE FOR: LING DIAS [address] [place] [address] Home: PID#: [id number] Exam#: [id number] : 1970 Age: 53 TO: CHARLEE HUMPHRIES APRN SIGNAL OPERATOR [address] [place] [address] Fax: NO FAX EXAMINATION: SCREENING DIGITAL BILATERAL [...] to annual mammographic screening per the [employer] [place] [employer]. BIRADS: MAMMOGRAM BI-RADS: 2: Benign finding RECALL: 1 year screening RECALL TYPE: mammo LETTER SENT: Normal BI-RADS 1 and 2 Interpreted by: Lakeisha Hanson Preliminary Report By: Lakeisha Hanson Electronically signed By Lakeisha Hanson Dictated Date: 09/28/2023 6:12:38 AM Prelim Date: 09/28/2023 6:19:28 AM Sign Date: 09/28/2023 6:19:28 AM Ordering Provider: CHARLEE HUMPHRIES Storage Receipt Poster: SAMANTA MARTINEZ RT(R)(M)(CT) letter sent: Normal BI-RADS 1 and 2 Mammogram BI-RADS: 2 Benign Normal [facility] (MD) Basophil percentageOrdered B y: Charlee Humphries on 06-08-2023 Bilirubin [Mass/Vol] 0.50 mg/dL 0.20-1.00 [facility] Comment on above: For patients on eltr ombopag therapy, use of Dimension Wheeler TBIL is not recommended. Chloride [Moles/Vol] 106 mmol/L 98-107 [facility] Cholesterol [Mass/Vol] 190 mg/dL <200 [facility] Comment on above: <200 mg/dL Desirable 200-240 mg/dL Borderline >240 mg/dL High Risk Glucose [Mass/Vol] 91 mg/dL 74-106 [facility] Potassium [Moles/Vol] 3.6 mmol/L 3.5-5.1 [facility] Protein [Mass/Vol] 7.9 g/dL 6.4-8.2 [facility] Sodium [Moles/Vol] 140 mmol/L 136-145 [facility] Triglyceride [Mass/Vol] 151 mg/dL <199 [facility] Comment on above: The drugs N-Acetylcy steine and Metamizole may falsely depress this assay.Serum Triglycerides Reference Interval Normal <150 mg/dL Borderline high 150 - 199 mg/dL High 200 - 499 mg/dL Very High > or = 500 mg/dL WBC (Bld) [#/Vol] 7.1 10*3/uL 4.4-11.0 [facility] Blood erythrocytes count (nu mber/volume)Ordered By: Charlee Humphries on 06-08-2023 RBC (Bld) [#/Vol] 5.14 10*6/uL 4.2-5.4 [facility] Blood hemoglobin measurement (mass/volume)Ordered By: Charlee Humphries on 06-08-2023 Hemoglobin (Bld) [Mass/Vol] 13.4 g/dL 12.0-15.0 [facility] Blood platelet mean volumeOr dered By: Charlee Humphries on 06-08-2023 Platelet mean volume (Bld) [Entitic vol] 9.5 fL 6.2-12.0 [facility] Determination of erythrocyte mean corpuscular volume (MCV)Ordered By: Charlee Humphries on 06-08-2023 MCV (RBC) [Entitic vol] 83.9 fL 81-99 [facility] Hematocrit Auto (Bld) [Volum e fraction]Ordered By: Charlee Humphries on 06-08-2023 Hematocrit (Bld) [Volume fraction] 43.1 % 37-47 [facility] Laboratory - Chemistry and C hemistry - challengeOrdered By: Charlee Humphries on 06-08-2023 ALP [Catalytic activity/Vol] 146 U/L 45-117 [facility] ALT [Catalytic activity/Vol] 48 U/L 13-56 [facility] CO2 [Moles/Vol] 29.0 mmol/L 21.0-32.0 [facility] Free T4 [Mass/Vol] 0.92 ng/dL 0.76-1.46 [facility] Globulin (S) [Mass/Vol] 4.5 g/dL 2.2-4.2 [facility] Urea nitrogen/Creatinine [Mass ratio] 18.7 mg/mg 10-20 [facility] Laboratory - Hematology and Cell countsOrdered By: Charlee Humphries on 06-08-2023 Erythrocyte distribution width (RBC) [Entitic vol] 43.6 fL 35.1-43.9 [facility] Erythrocyte distribution width (RBC) [Ratio] 14.2 % 11.6-14.6 [facility] MCH (RBC) [Entitic mass] 26.1 pg 27.0-32.0 [facility] MCHC Auto (RBC) [Mass/Vol]Or dered By: Charlee Humphries on 06-08-2023 MCHC (RBC) [Mass/Vol] 31.1 g/dL 32-36 [facility] No Panel InformationOrdered By: Charlee Humphries on 06-08-2023 Estimated GFR (MDRD) Amer 78 mL/min >60 [facility] Comment on above: GFR Calc Estimated GFR (MDRD) Non-Af Amer 65 mL/min >60 [facility] Comment on above: Non- GFR Calc Thyroid Stimulating Hormone (TSH) 1.60 uIU/mL 0.358-3.74 [facility] Urine Microalbumin/Creatinine Ratio 6.2 mg/g CRE <30 [facility] Vitamin D 25-Hydroxy 17.0 ng/mL [facility] Comment on above: Vitamin D 25(OH) Sta tus Range Deficiency <20 ng/mL (50nmol/L) Insufficiency 20 - 30 ng/mL (50 - 75 nmol/L) Sufficiency 30 - 100 ng/mL (75 - 250 nmol/L) Toxicity >100 ng/mL (>250 nmol/L) Platelets bldOrdered By: Caden Humphries on 06-08-2023 Platelets (Bld) [#/Vol] 330 10*3/uL 150-450 [facility] Serum or plasma albumin eliel urement (mass/volume)Ordered By: Charlee Humphries on 06-08-2023 Albumin [Mass/Vol] 3.4 g/dL 3.2-5.0 [facility] Serum or plasma albumin/glob ulin mass ratioOrdered By: Charlee Humphries on 06-08-2023 Albumin/Globulin [Mass ratio] 0.8 {ratio} 0.9-2.4 [facility] Serum or plasma calcium eliel urement (mass/volume)Ordered By: Charlee Humphries on 06-08-2023 Calcium [Mass/Vol] 8.5 mg/dL 8.5-10.1 [facility] Serum or plasma cholesterol in HDL measurement (mass/volume)Ordered By: Charlee Humphries on 06-08-2023 Cholesterol in HDL [Mass/Vol] 38 mg/dL >40 [facility] Comment on above: The drugs N-Acetylcy steine and Metamizole may falsely depress this assay. Reference Range HDL <40 mg/dL Low HDL Cholesterol HDL >or= 60 mg/dL High HDL Cholesterol Serum or plasma cholesterol in VLDL measurement (mass/volume)Ordered By: Charlee Humphries on 06-08-2023 Cholesterol in VLDL [Mass/Vol] 30 mg/dL 5-40 [facility] Serum or plasma creatinine m easurement (mass/volume)Ordered By: Charlee Humphries on 06-08-2023 Creatinine [Mass/Vol] 0.96 mg/dL 0.55-1.02 [facility] Comment on above: The validity of the calculated GFR & GFRAA in patients over 70 years has not been determined. Clinical correlation is essential. Serum or plasma low density lipoprotein (LDL) cholesterol measurement (mass/volume)Ordered By: Charlee Humphires on 06-08-2023 Cholesterol in LDL [Mass/Vol] 122 mg/dL 0-130 [facility] Serum or plasma urea nitroge n measurement (mass/volume)Ordered By: Charlee Humphries on 06-08-2023 Urea nitrogen [Mass/Vol] 18 mg/dL 7-18 [facility] Thin prep Papanicolaou smear with manual screeningOrdered By: Charlee Humphries on 06-08-2023 Thin prep Papanicolaou smear with manual screening 17 U/L 15-37 [facility] Thin prep Papanicolaou smear with manual screening 5 5-15 [facility] Thin prep Papanicolaou smear with manual screening 9.6 mg/L NO RANGE EST. [facility] Urine creatinine measurement (mass/volume)Ordered By: Charlee Humphries on 06-08-2023 Creatinine (U) [Mass/Vol] 156.00 mg/dL NO RANGE EST. [facility] XR Toes - left 3 Viewson IMPRESSION: Mild sof t tissue swelling in the third digit. No acute fracture seen. Gun Examiner: GENA Transcribe Date/Time: May 02 2023 11:55A Dictated by : RODRIGUEZ ATWOOD MD This examination was interpreted and the report reviewed and electronically signed by: RODRIGUEZ ATWOOD MD on May 02 2023 11:57AM [facility] DIVISION OF RADIOLOGY * * *Final Report* [...] soft tissue swelling. DIVISION OF RADIOLOGY Provider, [facility] - 05/02/2023 * * *Final Report* * [...] the third digit. No acute fracture seen. Gun Examiner: GENA Transcribe Date/Time: May 02 2023 11:55A Dictated by : RODRIGUEZ ATWOOD MD This examination was interpreted and the report reviewed and electronically signed by: RODRIGUEZ ATWOOD MD on Oct 21 2023 11:57AM [facility] Radiology Study observation (narrative) [facility] XR Toes - left 3 ViewsOrdere d By: Ccf Provider on 05-02-2023 [facility] UA DIP, URINE (POC)on 2022 BILIRUBIN UA (POCT) Small Abnormal Negative [facility] CLARITY UA (POCT) Cloudy [facility] COLOR UA (POCT) Red [facility] GLUCOSE UA (POCT) Negative Negative mg/dL [facility] HEMOGLOBIN/BLOOD UA (POCT) Large Abnormal Negative [facility] KETONE UA (POCT) Trace Negative mg/dL [facility] LEUKOCYTES UA (POCT) Large Abnormal Negative [facility] NITRITE UA (POCT) Positive Abnormal Negative [facility] PH UA (POCT) 5.5 4.5 - 8.0 [facility] Protein Ql (U) 100 mg/dL Abnormal Negative mg/dL [facility] SPECIFIC GRAVITY UA (POCT) 1.020 1 .005 - 1.030 [facility] UROBILINOGEN UA (POCT) 1.0 E.U./dL Kriss l E.U./dL [facility] Basophil percentageOrdered B y: Charlee Chowpkins on 11-29-2022 Bilirubin [Mass/Vol] 0.40 mg/dL 0.20-1.00 [facility] Comment on above: For patients on eltr ombopag therapy, use of Dimension Wheeler TBIL is not recommended. Chloride [Moles/Vol] 107 mmol/L 98-107 [facility] Cholesterol [Mass/Vol] 170 mg/dL <200 [facility] Comment on above: <200 mg/dL Desirable 200-240 mg/dL Borderline >240 mg/dL High Risk Glucose [Mass/Vol] 96 mg/dL 74-106 [facility] Potassium [Moles/Vol] 4.3 mmol/L 3.5-5.1 [facility] Protein [Mass/Vol] 7.4 g/dL 6.4-8.2 [facility] Sodium [Moles/Vol] 141 mmol/L 136-145 [facility] Triglyceride [Mass/Vol] 77 mg/dL <199 [facility] Comment on above: The drugs N-Acetylcy steine and Metamizole may falsely depress this assay.Serum Triglycerides Reference Interval Normal <150 mg/dL Borderline high 150 - 199 mg/dL High 200 - 499 mg/dL Very High > or = 500 mg/dL WBC (Bld) [#/Vol] 5.7 10*3/uL 4.4-11.0 [facility] Blood erythrocytes count (nu mber/volume)Ordered By: Charlee Humphries on 11-29-2022 RBC (Bld) [#/Vol] 4.95 10*6/uL 4.2-5.4 [facility] Blood hemoglobin measurement (mass/volume)Ordered By: Charlee Humphries on 11-29-2022 Hemoglobin (Bld) [Mass/Vol] 13.3 g/dL 12.0-15.0 [facility] Blood platelet mean volumeOr dered By: Charlee Humphries on 11-29-2022 Platelet mean volume (Bld) [Entitic vol] 9.5 fL 6.2-12.0 [facility] Determination of erythrocyte mean corpuscular volume (MCV)Ordered By: Charlee Humphries on 11-29-2022 MCV (RBC) [Entitic vol] 82.6 fL 81-99 [facility] Hematocrit Auto (Bld) [Volum e fraction]Ordered By: Charlee Humphries on 11-29-2022 Hematocrit (Bld) [Volume fraction] 40.9 % 37-47 [facility] Laboratory - Chemistry and C hemistry - challengeOrdered By: Charlee Humphries on 11-29-2022 ALP [Catalytic activity/Vol] 157 U/L 45-117 [facility] ALT [Catalytic activity/Vol] 22 U/L 13-56 [facility] CO2 [Moles/Vol] 29.0 mmol/L 21.0-32.0 [facility] Free T4 [Mass/Vol] 0.97 ng/dL 0.76-1.46 [facility] Globulin (S) [Mass/Vol] 4.2 g/dL 2.2-4.2 [facility] Urea nitrogen/Creatinine [Mass ratio] 23.2 mg/mg 10-20 [facility] Laboratory - Hematology and Cell countsOrdered By: Charlee Humphries on 11-29-2022 Erythrocyte distribution width (RBC) [Entitic vol] 42.7 fL 35.1-43.9 [facility] Erythrocyte distribution width (RBC) [Ratio] 14.3 % 11.6-14.6 [facility] MCH (RBC) [Entitic mass] 26.9 pg 27.0-32.0 [facility] MCHC Auto (RBC) [Mass/Vol]Or dered By: Charlee Humphries on 11-29-2022 MCHC (RBC) [Mass/Vol] 32.5 g/dL 32-36 [facility] No Panel InformationOrdered By: Charlee Humphries on 11-29-2022 Estimated GFR (MDRD) Amer 89 mL/min >60 [facility] Comment on above: GFR Calc Estimated GFR (MDRD) Non-Af Amer 74 mL/min >60 [facility] Comment on above: Non- GFR Calc Platelets bldOrdered By: Caden Humphries on 11-29-2022 Platelets (Bld) [#/Vol] 259 10*3/uL 150-450 [facility] Serum or plasma albumin eliel urement (mass/volume)Ordered By: Charlee Humphries on 11-29-2022 Albumin [Mass/Vol] 3.2 g/dL 3.2-5.0 [facility] Serum or plasma albumin/glob ulin mass ratioOrdered By: Charlee Humphries on 11-29-2022 Albumin/Globulin [Mass ratio] 0.8 {ratio} 0.9-2.4 [facility] Serum or plasma calcium eliel urement (mass/volume)Ordered By: Charlee Humphries on 11-29-2022 Calcium [Mass/Vol] 8.5 mg/dL 8.5-10.1 [facility] Serum or plasma cholesterol in HDL measurement (mass/volume)Ordered By: Charlee Humphries on 11-29-2022 Cholesterol in HDL [Mass/Vol] 40 mg/dL >40 [facility] Comment on above: The drugs N-Acetylcy steine and Metamizole may falsely depress this assay. Reference Range HDL <40 mg/dL Low HDL Cholesterol HDL >or= 60 mg/dL High HDL Cholesterol Serum or plasma cholesterol in VLDL measurement (mass/volume)Ordered By: Charlee Humphries on 11-29-2022 Cholesterol in VLDL [Mass/Vol] 15 mg/dL 5-40 [facility] Serum or plasma creatinine m easurement (mass/volume)Ordered By: Charlee Humphries on 11-29-2022 Creatinine [Mass/Vol] 0.86 mg/dL 0.55-1.02 [facility] Comment on above: The validity of the calculated GFR & GFRAA in patients over 70 years has not been determined. Clinical correlation is essential. Serum or plasma low density lipoprotein (LDL) cholesterol measurement (mass/volume)Ordered By: Charlee Humphries on 11-29-2022 Cholesterol in LDL [Mass/Vol] 115 mg/dL 0-130 [facility] Serum or plasma urea nitroge n measurement (mass/volume)Ordered By: Charlee Humphries on 11-29-2022 Urea nitrogen [Mass/Vol] 20 mg/dL 7-18 [facility] Thin prep Papanicolaou smear with manual screeningOrdered By: Charlee Humphries on 11-29-2022 Thin prep Papanicolaou smear with manual screening 16 U/L 15-37 [facility] Thin prep Papanicolaou smear with manual screening 5 5-15 [facility] Thin prep Papanicolaou smear with manual screening < 5.0 mg/L NO RANGE EST. [facility] Basophil percentageon 2021 Bilirubin [Mass/Vol] 0.60 mg/dL 0.20-1.00 [facility] Work Phone: Comment on above: For patients on eltr ombopag therapy, use of Dimension Wheeler TBIL is not recommended. Chloride [Moles/Vol] 107 mmol/L 98-107 [facility] Work Phone: Cholesterol [Mass/Vol] 196 mg/dL <200 [facility] Work Phone: Comment on above: <200 mg/dL Desirable 200-240 mg/dL Borderline >240 mg/dL High Risk Glucose [Mass/Vol] 92 mg/dL 74-106 [facility] Work Phone: Potassium [Moles/Vol] 3.7 mmol/L 3.5-5.1 [facility] Work Phone: Protein [Mass/Vol] 8.1 g/dL 6.4-8.2 [facility] Work Phone: [phone] Sodium [Moles/Vol] 140 mmol/L 136-145 [facility] Work Phone: [phone] Triglyceride [Mass/Vol] 92 mg/dL <199 [facility] Work Phone: [phone] Comment on above: The drugs N-Acetylcy steine and Metamizole may falsely depress this assay.Serum Triglycerides Reference Interval Normal <150 mg/dL Borderline high 150 - 199 mg/dL High 200 - 499 mg/dL Very High > or = 500 mg/dL WBC (Bld) [#/Vol] 7.7 10*3/uL 4.4-11.0 [facility] Work Phone: [phone] Blood erythrocytes count (nu mber/volume)on 05-17-2022 RBC (Bld) [#/Vol] 5.10 10*6/uL 4.2-5.4 [facility] Work Phone: [phone] Blood hemoglobin measurement (mass/volume)on 05-17-2022 Hemoglobin (Bld) [Mass/Vol] 14.2 g/dL 12.0-15.0 [facility] Work Phone: [phone] Blood platelet mean volumeon 05-17-2022 Platelet mean volume (Bld) [Entitic vol] 9.7 fL 6.2-12.0 [facility] Work Phone: [phone] Determination of erythrocyte mean corpuscular volume (MCV)on 05-17-2022 MCV (RBC) [Entitic vol] 83.9 fL 81-99 [facility] Work Phone: [phone] Hematocrit Auto (Bld) [Volum e fraction]on 05-17-2022 Hematocrit (Bld) [Volume fraction] 42.8 % 37-47 [facility] Work Phone: [phone] Laboratory - Chemistry and C hemistry - challengeon 05-17-2022 ALP [Catalytic activity/Vol] 125 U/L 45-117 [facility] Work Phone: [phone] ALT [Catalytic activity/Vol] 31 U/L 13-56 [facility] Work Phone: [phone] CO2 [Moles/Vol] 26.0 mmol/L 21.0-32.0 [facility] Work Phone: [phone] Free T4 [Mass/Vol] 0.90 ng/dL 0.76-1.46 [facility] Work Phone: [phone] Globulin (S) [Mass/Vol] 4.5 g/dL 2.2-4.2 [facility] Work Phone: [phone] Urea nitrogen/Creatinine [Mass ratio] 21.4 mg/mg 10-20 [facility] Work Phone: [phone] Laboratory - Hematology and Cell countson 05-17-2022 Erythrocyte distribution width (RBC) [Entitic vol] 47.3 fL 35.1-43.9 [facility] Work Phone: [phone] Erythrocyte distribution width (RBC) [Ratio] 15.5 % 11.6-14.6 [facility] Work Phone: [phone] MCH (RBC) [Entitic mass] 27.8 pg 27.0-32.0 [facility] Work Phone: [phone] MCHC Auto (RBC) [Mass/Vol]on 05-17-2022 MCHC (RBC) [Mass/Vol] 33.2 g/dL 32-36 [facility] Work Phone: No Panel Informationon 05-17 Estimated GFR (MDRD) Amer 86 mL/min >60 [facility] Work Phone: [phone] Comment on above: GFR Calc Estimated GFR (MDRD) Non-Af Amer 71 mL/min >60 [facility] Work Phone: [phone] Comment on above: Non- GFR Calc Thyroid Stimulating Hormone (TSH) 1.78 uIU/mL 0.358-3.74 [facility] Work Phone: Platelets bldon 05-17-2022 Platelets (Bld) [#/Vol] 269 10*3/uL 150-450 [facility] Work Phone: Serum or plasma albumin eliel urement (mass/volume)on 05-17-2022 Albumin [Mass/Vol] 3.6 g/dL 3.2-5.0 [facility] Work Phone: Serum or plasma albumin/glob ulin mass ratioon 05-17-2022 Albumin/Globulin [Mass ratio] 0.8 {ratio} 0.9-2.4 [facility] Work Phone: [phone] Serum or plasma calcium eliel urement (mass/volume)on 05-17-2022 Calcium [Mass/Vol] 9.3 mg/dL 8.5-10.1 [facility] Work Phone: Serum or plasma cholesterol in HDL measurement (mass/volume)on 05-17-2022 Cholesterol in HDL [Mass/Vol] 48 mg/dL >40 [facility] Work Phone: Comment on above: The drugs N-Acetylcy steine and Metamizole may falsely depress this assay. Reference Range HDL <40 mg/dL Low HDL Cholesterol HDL >or= 60 mg/dL High HDL Cholesterol Serum or plasma cholesterol in VLDL measurement (mass/volume)on 05-17-2022 Cholesterol in VLDL [Mass/Vol] 18 mg/dL 5-40 [facility] Work Phone: [phone] Serum or plasma creatinine m easurement (mass/volume)on 05-17-2022 Creatinine [Mass/Vol] 0.89 mg/dL 0.55-1.02 [facility] Work Phone: Comment on above: The validity of the calculated GFR & GFRAA in patients over 70 years has not been determined. Clinical correlation is essential. Serum or plasma low density lipoprotein (LDL) cholesterol measurement (mass/volume)on 05-17-2022 Cholesterol in LDL [Mass/Vol] 130 mg/dL 0-130 [facility] Work Phone: Serum or plasma urea nitroge n measurement (mass/volume)on 05-17-2022 Urea nitrogen [Mass/Vol] 19 mg/dL 7-18 [facility] Work Phone: [phone] Thin prep Papanicolaou smear with manual screeningon 05-17-2022 Thin prep Papanicolaou smear with manual screening 17 U/L 15-37 [facility] Work Phone: [phone] Thin prep Papanicolaou smear with manual screening 7 5-15 [facility] Work Phone: Basophil percentageon 2021 Amylase [Catalytic activity/Vol] 61 U/L 25-115 [facility] Work Phone: [phone] Bilirubin [Mass/Vol] 0.80 mg/dL 0.20-1.00 [facility] Work Phone: Comment on above: For patients on eltr ombopag therapy, use of Dimension Wheeler TBIL is not recommended. Chloride [Moles/Vol] 106 mmol/L 98-107 [facility] Work Phone: Glucose [Mass/Vol] 86 mg/dL 74-106 [facility] Work Phone: Potassium [Moles/Vol] 4.0 mmol/L 3.5-5.1 [facility] Work Phone: [phone] Protein [Mass/Vol] 8.0 g/dL 6.4-8.2 [facility] Work Phone: Sodium [Moles/Vol] 141 mmol/L 136-145 [facility] Work Phone: WBC (Bld) [#/Vol] 6.1 10*3/uL 4.4-11.0 [facility] Work Phone: [phone] Blood erythrocytes count (nu mber/volume)on 03-22-2022 RBC (Bld) [#/Vol] 5.04 10*6/uL 4.2-5.4 [facility] Work Phone: [phone] Blood hemoglobin measurement (mass/volume)on 03-22-2022 Hemoglobin (Bld) [Mass/Vol] 14.0 g/dL 12.0-15.0 [facility] Work Phone: Blood platelet mean volumeon 03-22-2022 Platelet mean volume (Bld) [Entitic vol] 10.6 fL 6.2-12.0 [facility] Work Phone: [phone] Determination of erythrocyte mean corpuscular volume (MCV)on 03-22-2022 MCV (RBC) [Entitic vol] 84.5 fL 81-99 [facility] Work Phone: [phone] Hematocrit Auto (Bld) [Volum e fraction]on 03-22-2022 Hematocrit (Bld) [Volume fraction] 42.6 % 37-47 [facility] Work Phone: Laboratory - Chemistry and C hemistry - challengeon 03-22-2022 ALP [Catalytic activity/Vol] 105 U/L 45-117 [facility] Work Phone: [phone] ALT [Catalytic activity/Vol] 21 U/L 13-56 [facility] Work Phone: [phone] CO2 [Moles/Vol] 28.0 mmol/L 21.0-32.0 [facility] Work Phone: [phone] Globulin (S) [Mass/Vol] 4.2 g/dL 2.2-4.2 [facility] Work Phone: [phone] Lipase [Catalytic activity/Vol] 164 U/L 73-393 [facility] Work Phone: [phone] Urea nitrogen/Creatinine [Mass ratio] 21.0 mg/mg 10-20 [facility] Work Phone: [phone] Laboratory - Hematology and Cell countson 03-22-2022 Erythrocyte distribution width (RBC) [Entitic vol] 45.5 fL 35.1-43.9 [facility] Work Phone: [phone] Erythrocyte distribution width (RBC) [Ratio] 15.0 % 11.6-14.6 [facility] Work Phone: [phone] MCH (RBC) [Entitic mass] 27.8 pg 27.0-32.0 [facility] Work Phone: [phone] MCHC Auto (RBC) [Mass/Vol]on 03-22-2022 MCHC (RBC) [Mass/Vol] 32.9 g/dL 32-36 [facility] Work Phone: No Panel Informationon 03-22 Estimated GFR (MDRD) Amer 75 mL/min >60 [facility] Work Phone: Comment on above: GFR Calc Estimated GFR (MDRD) Non-Af Amer 62 mL/min >60 [facility] Work Phone: Comment on above: Non- GFR Calc Platelets bldon 03-22-2022 Platelets (Bld) [#/Vol] 306 10*3/uL 150-450 [facility] Work Phone: Serum or plasma albumin eliel urement (mass/volume)on 03-22-2022 Albumin [Mass/Vol] 3.8 g/dL 3.2-5.0 [facility] Work Phone: Serum or plasma albumin/glob ulin mass ratioon 03-22-2022 Albumin/Globulin [Mass ratio] 0.9 {ratio} 0.9-2.4 [facility] Work Phone: Serum or plasma calcium eliel urement (mass/volume)on 03-22-2022 Calcium [Mass/Vol] 9.3 mg/dL 8.5-10.1 [facility] Work Phone: Serum or plasma creatinine m easurement (mass/volume)on 03-22-2022 Creatinine [Mass/Vol] 1.00 mg/dL 0.55-1.02 [facility] Work Phone: Comment on above: The validity of the calculated GFR & GFRAA in patients over 70 years has not been determined. Clinical correlation is essential. Serum or plasma urea nitroge n measurement (mass/volume)on 03-22-2022 Urea nitrogen [Mass/Vol] 21 mg/dL 7-18 [facility] Work Phone: Thin prep Papanicolaou smear with manual screeningon 03-22-2022 Thin prep Papanicolaou smear with manual screening 12 U/L 15-37 [facility] Work Phone: [phone] Thin prep Papanicolaou smear with manual screening 7 5-15 [facility] Work Phone: EMERGENCY REPORTon 2 EMERGENCY REPORT [facility] EMERGENCY ROOM REPORT NAME ACCOUNT SEX AGE ADMIT DISCHARGE PT MED. RECORD# NUMBER DATE DATE TYPE LARISSA [id number] Dorothy 51 02/25/22 02/26/22 1 LING Tucker [id number] ROOM: 305 DATE OF : 1970 DICTATING [...] Ricardo Yao DO 02/25/22 13:29 JOB #: [id number] Transcribed By: millicent 02/27/22 06:26 Electronically signed by: MARSHALL Yao DO 02/28/22 08:16 Page 1 of 1 [facility] DIAS Emergency Room Report Normal [facility] EMERGENCY REPORT [facility] EMERGENCY ROOM REPORT NAME ACCOUNT SEX AGE ADMIT DISCHARGE PT MED. RECORD# NUMBER DATE DATE TYPE LARISSA [id number] Dorothy 51 02/25/22 02/26/22 1 LING Tucker [id number] ROOM: 305 DATE OF : 1970 DICTATING [...] Ricardo Yao DO 02/25/22 13:29 JOB #: [id number] Page 1 of 2 [facility] Emergency Room Report LING DIAS : 1970 Transcribed By: am 02/27/22 06:21 Electronically signed by: MARSHALL Yao DO 02/28/22 08:16 Page 2 of 2 [facility] Emergency Room Report Normal [facility] CBC + DIFFon 02-26-2022 Baso # 0.00 x10EE3/UL Normal 0.00 - 0.10 [facility] Comment on above: Performed By: #### 2 [id number] #### [facility],[address] [place] [address] 01900 Basophils/100 WBC (Bld) 0.3 % Normal 0.0 - 2.0 [facility] Comment on above: Performed By: #### 2 [id number] #### [facility],[address] [place] [address] 41175 CBC + DIFF Normal [facility] Comment on above: Result Comment: CBC- COMPLETE BLOOD COUNT Performed By: #### 2 [id number] #### [facility],[address] [place] [address] 41029 EO # 0.00 x10EE3/UL Normal 0.00 - 0.50 [facility] Comment on above: Performed By: #### 2 36797 #### [facility],[address] [place], [place] [id number] Eosinophils/100 WBC (Bld) 0.0 % Normal 0.0 - 7.0 [facility] Comment on above: Performed By: #### 2 [id number] #### [facility],[address] [place] [address] Erythrocyte distribution width (RBC) [Ratio] 14.5 % Normal 12.0 - 15.6 [facility] Comment on above: Performed By: #### 2 98443 #### [place] [address] Hematocrit (Bld) [Volume fraction] 37.6 % Normal 34.0 - 46.0 [facility] Comment on above: Performed By: #### 2 37194 #### [place] [address] Hemoglobin (Bld) [Mass/Vol] 12.3 g/dL Normal 12.0 - 16.0 [facility] Comment on above: Performed By: #### 2 83757 #### [place] [address] Lymph # 1.10 x10EE3/UL Normal 0.80 - 2.80 [facility] Comment on above: Performed By: #### 2 35021 #### [place] [address] Lymphocytes/100 WBC (Bld) 23.9 % Normal 20.0 - 45. 0 [facility] Comment on above: Performed By: #### 2 69238 #### [place] [address] MANUAL DIFF N/A Normal [facility] Comment on above: Performed By: #### 2 92538 #### [place] [address] MCH (RBC) [Entitic mass] 27 pg Normal 27 - 33 [facility] Comment on above: Performed By: #### 2 39301 #### [facility],[address] [place] [address] 81279 MCHC 33 X10 3 Normal 32 - 36 [facility] Comment on above: Performed By: #### 2 28547 #### [facility],[address] [place] [address] 16718 MCV (RBC) [Entitic vol] 81 fL Normal 80 - 99 [facility] Comment on above: Performed By: #### 2 98111 #### [facility],[address] [place] [address] 04516 Antelope # 0.20 x10EE3/UL Normal 0.20 - 1.00 [facility] Comment on above: Performed By: #### 2 33818 #### [facility],[address] [place], [place] [id number] MONOS % 5.2 % Normal 0.0 - 10.0 [facility] Comment on above: Performed By: #### 2 70694 #### [facility],[address] [place] [address] 25634 Morphology Chilo (Bld) [Interp] N/A Normal [facility] Comment on above: Result Comment: {CD] Performed By: #### 2 87610 #### [facility],[address] [place] [address] 23990 Neut # 3.20 x10EE3/UL Normal 1.50 - 7.10 [facility] Comment on above: Performed By: #### 2 53915 #### [facility],[address] [place] [address] 57117 Neutrophils/100 WBC (Bld) 70.6 % Normal 46.0 - 76. 0 [facility] Comment on above: Performed By: #### 2 46955 #### [facility],[address] [place] [address] 52410 PLATELET 218 x10EE3/UL Normal 150 - 450 [facility] Comment on above: Performed By: #### 2 59163 #### [facility],[address] [place] [address] Platelet mean volume (Bld) [Entitic vol] 8.4 fL Normal 6.6 - 10.5 [facility] Comment on above: Result Comment: AUTO MATED DIFFERENTIAL Performed By: #### 2 48038 #### [facility],[address] [place] [address] RBC 4.63 x 10EE6/UL Normal 4.10 - 5.30 [facility] Comment on above: Performed By: #### 2 69393 #### [place] [address] WBC 4.5 x 10EE3/UL Normal 4.5 - 10.8 [facility] Comment on above: Performed By: #### 2 17399 #### [facility],[address] [place] [address] CMP with eGFRon 02-26-2022 AGE 51 years Normal [facility] Comment on above: Performed By: #### 2 46185 #### [place] [id number] Albumin [Mass/Vol] 3.0 g/dL Low 3.4 - 5.0 [facility] Comment on above: Performed By: #### 2 71602 #### [facility],[address] [place], [place] [id number] Albumin/Globulin [Mass ratio] 0.9 {ratio} Normal 0.9 - 1.6 [facility] Comment on above: Performed By: #### 2 70969 #### [place] [id number] ALK PHOS 116 U/L Normal 46 - 116 [facility] Comment on above: Performed By: #### 2 40319 #### [place] [id number] ALT [Catalytic activity/Vol] 63 U/L High 14 - 59 [facility] Comment on above: Performed By: #### 2 86633 #### [facility],[address] [place] [address] 79326 Anion gap [Moles/Vol] 11 mmol/L Normal 10 - 20 [facility] Comment on above: Performed By: #### 2 00503 #### [facility],[address] [place] [address] 27681 AST [Catalytic activity/Vol] 47 U/L High 13 - 39 [facility] Comment on above: Performed By: #### 2 14966 #### [facility],[address] [place] [address] 16975 B/C RATIO 11 ratio Normal 0 - 30 [facility] Comment on above: Performed By: #### 2 16175 #### [facility],[address] [place] [address] 24331 Bilirubin [Mass/Vol] 0.7 mg/dL Normal 0.2 - 1.0 [facility] Comment on above: Performed By: #### 2 15509 #### [facility],[address] [place] [address] 12723 Calcium [Mass/Vol] 8.4 mg/dL Low 8.5 - 10.1 [facility] Comment on above: Performed By: #### 2 93800 #### [facility],[address] [place] [address] 30134 Chloride [Moles/Vol] 107 mmol/L Normal 98 - 107 [facility] Comment on above: Performed By: #### 2 58176 #### [facility],[address] [place] [address] 99090 CMP with eGFR Normal [facility] Comment on above: Result Comment: COMP REHENSIVE METABOLIC PANEL Performed By: #### 2 43015 #### [facility],[address] [place] [address] 85550 CO2 [Moles/Vol] 29.2 mmol/L Normal 21.0 - 32.0 [facility] Comment on above: Performed By: #### 2 80903 #### [address] [address] Creatinine [Mass/Vol] 0.90 mg/dL Normal 0.55 - 1.02 [facility] Comment on above: Performed By: #### 2 73865 #### [facility],[address] [place] [address] GFR/1.73 sq M.predicted among non-blacks MDRD (S/P/Bld) [Vol rate/Area] mL/min/{1.73_m2} Normal 60 - 999 [facility] Comment on above: Performed By: #### 2 98276 #### [place] [address] Result Comment: ACCO RDING TO THE NATIONAL KIDNEY DISEASE EDUCATION PROGRAM(NKDE), A NORMAL eGFR IS A VALUE GREATER THAN OR EQUAL TO 60 ML/MIN/1.73 SQ METERS. CHRONIC KIDNEY DISEASE: <60mL/MIN/1.73 SQ METERS KIDNEY FAILURE: <15mL/MIN/1.73 SQ METERS THIS TEST SHOULD ONLY BE USED FOR PATIENTS 18 YEARS OF AGE AND OLDER. Globulin (S) [Mass/Vol] 3.5 g/dL Normal 1.5 - 3.8 [facility] Comment on above: Performed By: #### 2 30550 #### [address] [address] Glucose [Mass/Vol] 88 mg/dL Normal 74 - 106 [facility] Comment on above: Performed By: #### 2 17294 #### [address] [address] Potassium [Moles/Vol] 3.2 mmol/L Low 3.5 - 5.1 [facility] Comment on above: Performed By: #### 2 29912 #### [address] [address] Protein [Mass/Vol] 6.5 g/dL Normal 6.4 - 8.2 [facility] Comment on above: Performed By: #### 2 18331 #### [facility],[address] [place] [address] 81964 Sodium [Moles/Vol] 144 mmol/L Normal 136 - 145 [facility] Comment on above: Performed By: #### 2 39917 #### [facility],[address] [place] [address] 16358 Urea nitrogen [Mass/Vol] 10 mg/dL Normal 7 - 18 [facility] Comment on above: Performed By: #### 2 02702 #### [facility],[address] [place] [address] 64457 LIPASEon 02-26-2022 Lipase [Catalytic activity/Vol] 1708.0 U/L High 73.0 - 393 [facility] Comment on above: Performed By: #### 2 38015 #### [facility],[address] [place] [address] 04010 CBC + DIFFon 02-25-2022 Baso # 0.00 x10EE3/UL Normal 0.00 - 0.10 [facility] Comment on above: Performed By: #### 2 13687 #### [facility],[address] [place] [address] 52849 Basophils/100 WBC (Bld) 0.2 % Normal 0.0 - 2.0 [facility] Comment on above: Performed By: #### 2 91263 #### [facility],[address] [place] [address] 24980 CBC + DIFF Normal [facility] Comment on above: Result Comment: CBC- COMPLETE BLOOD COUNT Performed By: #### 2 34600 #### [facility],[address] [place] [address] 15099 EO # 0.00 x10EE3/UL Normal 0.00 - 0.50 [facility] Comment on above: Performed By: #### 2 09091 #### [facility],[address] [place] [address] 57276 Eosinophils/100 WBC (Bld) 0.0 % Normal 0.0 - 7.0 [facility] Comment on above: Performed By: #### 2 93020 #### [facility],[address] [place] [address] Erythrocyte distribution width (RBC) [Ratio] 14.5 % Normal 12.0 - 15.6 [facility] Comment on above: Performed By: #### 2 38984 #### [facility],[address] [place] [address] Hematocrit (Bld) [Volume fraction] 41.4 % Normal 34.0 - 46.0 [facility] Comment on above: Performed By: #### 2 11044 #### [place] [address] Hemoglobin (Bld) [Mass/Vol] 13.5 g/dL Normal 12.0 - 16.0 [facility] Comment on above: Performed By: #### 2 98858 #### [facility],[address] [place] [address] Lymph # 1.30 x10EE3/UL Normal 0.80 - 2.80 [facility] Comment on above: Performed By: #### 2 19257 #### [facility],[address] [place], [place] [id number] Lymphocytes/100 WBC (Bld) 10.7 % Low 20.0 - 45. 0 [facility] Comment on above: Performed By: #### 2 25838 #### [facility],[address] [place], [place] [id number] MANUAL DIFF N/A Normal [facility] Comment on above: Performed By: #### 2 74686 #### [facility],[address] [place], [place] [id number] MCH (RBC) [Entitic mass] 26 pg Low 27 - 33 [facility] Comment on above: Performed By: #### 2 74873 #### [facility],[address] [place] [address] 44774 MCHC 33 X10 3 Normal 32 - 36 [facility] Comment on above: Performed By: #### 2 58065 #### [facility],[address] [place] [address] 48346 MCV (RBC) [Entitic vol] 80 fL Normal 80 - 99 [facility] Comment on above: Performed By: #### 2 13801 #### [facility],[address] [place] [address] 38234 Antelope # 0.60 x10EE3/UL Normal 0.20 - 1.00 [facility] Comment on above: Performed By: #### 2 68014 #### [facility],[address] [place] [address] 20307 MONOS % 4.8 % Normal 0.0 - 10.0 [facility] Comment on above: Performed By: #### 2 05198 #### [facility],[address] [place] [address] 93837 Morphology Chilo (Bld) [Interp] N/A Normal [facility] Comment on above: Result Comment: {CD] Performed By: #### 2 33578 #### [facility],[address] [place] [address] 06418 Neut # 10.10 x10EE3/UL High 1.50 - 7.10 [facility] Comment on above: Performed By: #### 2 07075 #### [facility],[address] [place] [address] 51337 Neutrophils/100 WBC (Bld) 84.3 % High 46.0 - 76. 0 [facility] Comment on above: Performed By: #### 2 78176 #### [facility],[address] [place] [address] 60231 PLATELET 262 x10EE3/UL Normal 150 - 450 [facility] Comment on above: Performed By: #### 2 78151 #### [facility],[address] [place] [address] Platelet mean volume (Bld) [Entitic vol] 8.1 fL Normal 6.6 - 10.5 [facility] Comment on above: Result Comment: AUTO MATED DIFFERENTIAL Performed By: #### 2 49272 #### [facility],[address] [place] [address] RBC 5.16 x 10EE6/UL Normal 4.10 - 5.30 [facility] Comment on above: Performed By: #### 2 34156 #### [place] [address] WBC 12.0 x 10EE3/UL High 4.5 - 10.8 [facility] Comment on above: Performed By: #### 2 06018 #### [facility],[address] [place] [address] CMP with eGFRon 02-25-2022 AGE 51 years Normal [facility] Comment on above: Performed By: #### 2 25755 #### [place] [address] Albumin [Mass/Vol] 3.7 g/dL Normal 3.4 - 5.0 [facility] Comment on above: Performed By: #### 2 11115 #### [place] [address] Albumin/Globulin [Mass ratio] 0.9 {ratio} Normal 0.9 - 1.6 [facility] Comment on above: Performed By: #### 2 27155 #### [place] [address] ALK PHOS 124 U/L High 46 - 116 [facility] Comment on above: Performed By: #### 2 43659 #### [place] [address] ALT [Catalytic activity/Vol] 42 U/L Normal 14 - 59 [facility] Comment on above: Performed By: #### 2 79547 #### [facility],[address] [place] [address] 59563 Anion gap [Moles/Vol] 10 mmol/L Normal 10 - 20 [facility] Comment on above: Performed By: #### 2 36114 #### [facility],[address] [place] [address] 86424 AST [Catalytic activity/Vol] 60 U/L High 13 - 39 [facility] Comment on above: Performed By: #### 2 24592 #### [facility],[address] [place] [address] 42099 B/C RATIO 12 ratio Normal 0 - 30 [facility] Comment on above: Performed By: #### 2 01204 #### [facility],[address] [place] [address] 86930 Bilirubin [Mass/Vol] 0.7 mg/dL Normal 0.2 - 1.0 [facility] Comment on above: Performed By: #### 2 54571 #### [facility],[address] [place] [address] 13922 Calcium [Mass/Vol] 8.9 mg/dL Normal 8.5 - 10.1 [facility] Comment on above: Performed By: #### 2 60908 #### [facility],[address] [place] [address] 00863 Chloride [Moles/Vol] 104 mmol/L Normal 98 - 107 [facility] Comment on above: Performed By: #### 2 15403 #### [facility],[address] [place] [address] 92293 CMP with eGFR Normal [facility] Comment on above: Result Comment: COMP REHENSIVE METABOLIC PANEL Performed By: #### 2 93397 #### [facility],[address] [place] [address] 31111 CO2 [Moles/Vol] 29.7 mmol/L Normal 21.0 - 32.0 [facility] Comment on above: Performed By: #### 2 24612 #### [facility],[address] [place] [address] 15636 Creatinine [Mass/Vol] 1.06 mg/dL High 0.55 - 1.02 [facility] Comment on above: Performed By: #### 2 55475 #### [facility],[address] [place] [address] 32234 eGFR 55 ML/MINUTE Low 60 - 999 [facility] Comment on above: Performed By: #### 2 34557 #### [address] [address] GFR/1.73 sq M.predicted among non-blacks MDRD (S/P/Bld) [Vol rate/Area] mL/min/{1.73_m2} Normal 60 - 999 [facility] Comment on above: Result Comment: ACCO RDING TO THE NATIONAL KIDNEY DISEASE EDUCATION PROGRAM(NKDE), A NORMAL eGFR IS A VALUE GREATER THAN OR EQUAL TO 60 ML/MIN/1.73 SQ METERS. CHRONIC KIDNEY DISEASE: <60mL/MIN/1.73 SQ METERS KIDNEY FAILURE: <15mL/MIN/1.73 SQ METERS THIS TEST SHOULD ONLY BE USED FOR PATIENTS 18 YEARS OF AGE AND OLDER. Performed By: #### 2 55397 #### [facility],[address] [place] [address] 97297 Globulin (S) [Mass/Vol] 4.2 g/dL High 1.5 - 3.8 [facility] Comment on above: Performed By: #### 2 58525 #### [address] [address] Glucose [Mass/Vol] 109 mg/dL High 74 - 106 [facility] Comment on above: Performed By: #### 2 76101 #### [address] [address] Potassium [Moles/Vol] 3.2 mmol/L Low 3.5 - 5.1 [facility] Comment on above: Performed By: #### 2 44841 #### [facility],[address] [place] [address] 70441 Protein [Mass/Vol] 7.9 g/dL Normal 6.4 - 8.2 [facility] Comment on above: Performed By: #### 2 25198 #### [facility],[address] [place] [address] Sodium [Moles/Vol] 140 mmol/L Normal 136 - 145 [facility] Comment on above: Performed By: #### 2 00666 #### [place] [address] Urea nitrogen [Mass/Vol] 13 mg/dL Normal 7 - 18 [facility] Comment on above: Performed By: #### 2 53222 #### [facility],[address] [place], [place] [id number] CORONAVIRUS PCR - [facility] 02-25-2022 SARS-CoV-2 (COVID-19) RNA TAYLOR+probe Ql (Unsp spec) Negative Normal NORMAL: NEGATIVE [facility] Comment on above: Performed By: #### 2 37596 #### [place] [address] SEND TO ? YES Normal [facility] Comment on above: Result Comment: RESU LTS FAXED TO INFECTION CONTROL. SARS-CoV-2 THIS TEST IS BEING USED UNDER THE FDA EUA PROCEDURE. THIS ASSAY HAS BEEN VALIDATED IN THE [facility] FOR USE WITH NASOPHARYNGEAL SPECIMENS IN [facility]. INTERPRETIVE DATA LABORATORY TEST RESULTS SHOULD ALWAYS [...] PUBLIC HEALTH AUTHORITIES. Performed By: #### 2 39256 #### [place] [address] CT ABDOMEN/PELVIS [facility] 2021 CT ABDOMEN/PELVIS [place] [address] Patient: LING DIAS Phone#: : 1970 Age: 51 Gender: F Pt. Type: ER Account: [id number] Location: [facility] Ordering: RICARDO YAO Exam Date: 02/25/2022/11:41 Family Phys: CHARLEE HUMPHRIES Charge Code: [id number] Physician: [place] Order #: [id number] DLP Dose#: 37.0 mGy PROCEDURE: CT ABDOMEN/PELVIS [...] 51 Gender: F Pt. Type: ER Account: [id number] Location: [facility] Ordering: RICARDO YAO Exam Date: 02/25/2022/11:41 Family Phys: CHARLEE CHOWPKINS Charge Code: [id number] Physician: [place] Order #: [id number] DLP Dose#: 37.0 mGy PELVIC ORGANS: Essure [...] Ware MD on 02/25/2022 at 12:16 Normal [facility] LIPASEon 02-25-2022 Lipase [Catalytic activity/Vol] 71934.0 U/L High 73.0 - 393 [facility] Comment on above: Performed By: #### 2 38898 #### [facility],[address] [place] [address] US RUQ (GB/PANCREAS)on 02-25 US RUQ (GB/PANCREAS) [address] [address] Patient: LING DIAS Phone#: : 1970 Age: 51 Gender: F Pt. Type: ER Account: [id number] Location: [facility] Ordering: RICARDO YAO Exam Date: 02/25/2022/11:01 Family Phys: Charge Code: [id number] Physician: [place] Order #: [id number] DLP Dose#: PROCEDURE: RUQ (GB) ULTRASOUND COMPARISON: [...] JAVED MD ON 02/25/2022 AT 11:39 Normal [facility] Vital Signs Date Time Vital Sign Value Performing Clinician Facility 03-31-2025 15:16-0400 Body height 172.72 cm Charlee Humphries NP-C Work Phone: [facility] 03-31-2025 15:16-0400 Body mass index (BMI) [Ratio] 41.2 kg/m2 Charlee Humphries PATIENT FLOW COORDINATOR-C Work Phone: [facility] 03-31-2025 15:16-0400 Body temperature 98.7 [degF] Charlee Humphries PATIENT FLOW COORDINATOR-C Work Phone: [facility] 03-31-2025 15:16-0400 Body weight 123.05 kg Charlee Humphries PATIENT FLOW COORDINATOR-C Work Phone: [facility] 03-31-2025 15:16-0400 Diastolic blood pressure 97 mm[Hg] Charlee Hupmhries PATIENT FLOW COORDINATOR-C Work Phone: [facility] 03-31-2025 15:16-0400 Heart rate 90 /min Charlee Humphries PATIENT FLOW COORDINATOR-C Work Phone: [facility] 03-31-2025 15:16-0400 Respiratory rate 16 /min Charlee Humphries PATIENT FLOW COORDINATOR-C Work Phone: [facility] 03-31-2025 15:16-0400 SaO2% (BldA) [Mass fraction] 100 % Charlee Humphries PATIENT FLOW COORDINATOR-C Work Phone: [facility] 03-31-2025 15:16-0400 Systolic blood pressure 164 mm[Hg] Charlee Humphries PATIENT FLOW COORDINATOR-C Work Phone: [facility] 02-26-2025 08:57-0400 Body mass index (BMI) [Ratio] 40.9 kg/m2 Mai Brandt VAULT PERSON.SIGNAL OPERATOR Work Phone: [facility] 02-26-2025 08:57-0400 Body temperature 97.3 [degF] Mai Brandt VAULT PERSON.SIGNAL OPERATOR Work Phone: [facility] 02-26-2025 08:57-0400 Body weight 122 kg Mai Brandt VAULT PERSON.SIGNAL OPERATOR Work Phone: [facility] 02-26-2025 08:57-0400 Diastolic blood pressure 81 mm[Hg] Mai Brandt VAULT PERSON.SIGNAL OPERATOR Work Phone: [facility] 02-26-2025 08:57-0400 Heart rate 94 /min Mai Brandt VAULT PERSON.SIGNAL OPERATOR Work Phone: [facility] 02-26-2025 08:57-0400 Respiratory rate 22 /min Mai Brandt VAULT PERSON.SIGNAL OPERATOR Work Phone: [facility] 02-26-2025 08:57-0400 SaO2% (BldA) [Mass fraction] 97 % Mai Brandt VAULT PERSON.SIGNAL OPERATOR Work Phone: [facility] 02-26-2025 08:57-0400 Systolic blood pressure 136 mm[Hg] Mai Brandt VAULT PERSON.SIGNAL OPERATOR Work Phone: [facility] 08-17-2024 07:23-0500 Body mass index (BMI) [Ratio] 40.39 kg/m2 Millicent Clutter PA-C Work Phone: [facility] 08-17-2024 07:23-0500 Body temperature 97.81 [degF] Millicent Clutter PA-C Work Phone: [facility] 08-17-2024 07:23-0500 Body weight 120.5 kg Millicent Clutter PA-C Work Phone: [facility] 08-17-2024 07:23-0500 Diastolic blood pressure 80 mm[Hg] Millicent Clutter PA-C Work Phone: [facility] 08-17-2024 07:23-0500 Heart rate 90 /min Millicent Clutter PA-C Work Phone: [facility] 08-17-2024 07:23-0500 Respiratory rate 18 /min Millicent Clutter PA-C Work Phone: [facility] 08-17-2024 07:23-0500 SaO2% (BldA) [Mass fraction] 99 % Millicent Clutter PA-C Work Phone: [facility] 08-17-2024 07:23-0500 Systolic blood pressure 132 mm[Hg] Millicent Clutter PA-C Work Phone: [facility] 06-24-2024 13:15-0500 Heart rate 83 /min Fredo Finelli DO Work Phone: [facility] 06-24-2024 13:15-0500 Respiratory rate 18 /min Fredo Finelli DO Work Phone: [facility] 06-24-2024 13:00-0500 Diastolic blood pressure 57 mm[Hg] Fredo Finelli DO Work Phone: [facility] 06-24-2024 13:00-0500 SaO2% (BldA) [Mass fraction] 100 % Fredo Finelli DO Work Phone: [facility] 06-24-2024 13:00-0500 Systolic blood pressure 115 mm[Hg] Fredo Finelli DO Work Phone: [facility] 06-24-2024 12:45-0500 Body temperature 97 [degF] Fredo Finelli DO Work Phone: [facility] 06-24-2024 10:27-0500 Body height 172.7 cm Fredo Finelli DO Work Phone: [facility] 06-24-2024 10:27-0500 Body mass index (BMI) [Ratio] 37.71 kg/m2 Fredo Finelli DO Work Phone: [facility] 06-24-2024 10:27-0500 Body weight 112.49 kg Fredo Finelli DO Work Phone: [facility] 06-11-2024 13:27-0500 Body temperature 98.2 [degF] Charlee Humphries PATIENT FLOW COORDINATOR-C Work Phone: [facility] 06-11-2024 13:27-0500 Diastolic blood pressure 82 mm[Hg] Charlee Humphries PATIENT FLOW COORDINATOR-C Work Phone: [facility] 06-11-2024 13:27-0500 Heart rate 92 /min Charlee Humphries PATIENT FLOW COORDINATOR-C Work Phone: [facility] 06-11-2024 13:27-0500 Respiratory rate 16 /min Charlee Humphries PATIENT FLOW COORDINATOR-C Work Phone: [facility] 06-11-2024 13:27-0500 SaO2% (BldA) [Mass fraction] 96 % Charlee Humphries PATIENT FLOW COORDINATOR-C Work Phone: [facility] 06-11-2024 13:27-0500 Systolic blood pressure 142 mm[Hg] Charlee Humphries PATIENT FLOW COORDINATOR-C Work Phone: [facility] 06-11-2024 10:31-0500 Body height 172.72 cm Charlee Humphries PATIENT FLOW COORDINATOR-C Work Phone: [facility] 06-11-2024 10:31-0500 Body weight 120.4 kg Charlee Humphries PATIENT FLOW COORDINATOR-C Work Phone: [facility] 06-09-2024 17:33-0500 Body mass index (BMI) [Ratio] 40.4 kg/m2 Charlee Humphries PATIENT FLOW COORDINATOR-C Work Phone: [facility] 05-23-2024 16:48-0500 Body mass index (BMI) [Ratio] 40.86 kg/m2 Min Toribioomar VAULT PERSON.SIGNAL OPERATOR Work Phone: [facility] 05-23-2024 16:48-0500 Body temperature 97.5 [degF] Min Hameed VAULT PERSON.SIGNAL OPERATOR Work Phone: [facility] 05-23-2024 16:48-0500 Body weight 121.9 kg Min Hameed VAULT PERSON.SIGNAL OPERATOR Work Phone: [facility] 05-23-2024 16:48-0500 Diastolic blood pressure 92 mm[Hg] Min Hameed VAULT PERSON.SIGNAL OPERATOR Work Phone: [facility] 05-23-2024 16:48-0500 Heart rate 95 /min Min Hameed VAULT PERSON.SIGNAL OPERATOR Work Phone: [facility] 05-23-2024 16:48-0500 Respiratory rate 20 /min Min Hameed VAULT PERSON.SIGNAL OPERATOR Work Phone: [facility] 05-23-2024 16:48-0500 SaO2% (BldA) [Mass fraction] 98 % Min Hameed VAULT PERSON.SIGNAL OPERATOR Work Phone: [facility] 05-23-2024 16:48-0500 Systolic blood pressure 140 mm[Hg] Min Hameed VAULT PERSON.SIGNAL OPERATOR Work Phone: [facility] 05-02-2024 16:38-0400 Body mass index (BMI) [Ratio] 40.96 kg/m2 Krislyn Aberegg PA Work Phone: [facility] 05-02-2024 16:38-0400 Body temperature 98.01 [degF] Krislyn Aberegg PA Work Phone: [facility] 05-02-2024 16:38-0400 Body weight 122.2 kg Krislyn Aberegg PA Work Phone: [facility] 05-02-2024 16:38-0400 Diastolic blood pressure 70 mm[Hg] Krislyn Aberegg PA Work Phone: [facility] 05-02-2024 16:38-0400 Heart rate 104 /min Krislyn Aberegg PA Work Phone: [facility] 05-02-2024 16:38-0400 Respiratory rate 16 /min Krislyn Aberegg PA Work Phone: [facility] 05-02-2024 16:38-0400 SaO2% (BldA) [Mass fraction] 98 % Krislyn Aberegg PA Work Phone: [facility] 05-02-2024 16:38-0400 Systolic blood pressure 122 mm[Hg] Krislyn Aberegg PA Work Phone: [facility] 03-29-2024 10:11-0400 Body height 172.7 cm Radha Jr VAULT PERSON.SIGNAL OPERATOR Work Phone: [facility] 03-29-2024 10:11-0400 Body mass index (BMI) [Ratio] 41.39 kg/m2 Radha Jr VAULT PERSON.SIGNAL OPERATOR Work Phone: [facility] 03-29-2024 10:11-0400 Body temperature 97 [degF] Radha Jr VAULT PERSON.SIGNAL OPERATOR Work Phone: [facility] 03-29-2024 10:11-0400 Body weight 123.47 kg Radha Navarro VAULT PERSON.SIGNAL OPERATOR Work Phone: [facility] 03-29-2024 10:11-0400 Diastolic blood pressure 94 mm[Hg] Radha Donaldir VAULT PERSON.SIGNAL OPERATOR Work Phone: [facility] 03-29-2024 10:11-0400 Heart rate 91 /min Radha Donaldir VAULT PERSON.SIGNAL OPERATOR Work Phone: [facility] 03-29-2024 10:11-0400 SaO2% (BldA) [Mass fraction] 98 % Radha Donaldir VAULT PERSON.SIGNAL OPERATOR Work Phone: [facility] 03-29-2024 10:11-0400 Systolic blood pressure 146 mm[Hg] Radha Donaldir VAULT PERSON.SIGNAL OPERATOR Work Phone: [facility] 11-22-2023 08:09-0400 Body mass index (BMI) [Ratio] 41.36 kg/m2 Jessica An APRN.SIGNAL OPERATOR Work Phone: [facility] 11-22-2023 08:09-0400 Body temperature 96.91 [degF] Jessica An APRN.SIGNAL OPERATOR Work Phone: [facility] 11-22-2023 08:09-0400 Body weight 123.38 kg Jessica An APRN.SIGNAL OPERATOR Work Phone: [facility] 11-22-2023 08:09-0400 Diastolic blood pressure 74 mm[Hg] Jessica An APRN.SIGNAL OPERATOR Work Phone: [facility] 11-22-2023 08:09-0400 Heart rate 98 /min Jessica An APRN.SIGNAL OPERATOR Work Phone: [facility] 11-22-2023 08:09-0400 Respiratory rate 16 /min Jessica An APRN.SIGNAL OPERATOR Work Phone: [facility] 11-22-2023 08:09-0400 SaO2% (BldA) [Mass fraction] 99 % Jessica An APRN.SIGNAL OPERATOR Work Phone: [facility] 11-22-2023 08:09-0400 Systolic blood pressure 138 mm[Hg] Jessica An APRN.SIGNAL OPERATOR Work Phone: [facility] 09-24-2023 09:16-0400 Body temperature 98.6 [degF] Jessica An APRN.SIGNAL OPERATOR Work Phone: [facility] 09-24-2023 09:16-0400 Body weight 123 kg Jessica An APRN.SIGNAL OPERATOR Work Phone: [facility] 09-24-2023 09:16-0400 Diastolic blood pressure 98 mm[Hg] Jessica An APRN.SIGNAL OPERATOR Work Phone: [facility] 09-24-2023 09:16-0400 Heart rate 86 /min Jessica An APRN.SIGNAL OPERATOR Work Phone: [facility] 09-24-2023 09:16-0400 Respiratory rate 20 /min Jessica An APRN.SIGNAL OPERATOR Work Phone: [facility] 09-24-2023 09:16-0400 SaO2% (BldA) [Mass fraction] 100 % Jessica An APRN.SIGNAL OPERATOR Work Phone: [facility] 09-24-2023 09:16-0400 Systolic blood pressure 142 mm[Hg] Jessica An APRN.SIGNAL OPERATOR Work Phone: [facility] 02-08-2023 08:17-0400 Body temperature 97.81 [degF] Padmini Athy PA-C Work Phone: [facility] 02-08-2023 08:17-0400 Body weight 123.2 kg Padmini Athy PA-C Work Phone: [facility] 02-08-2023 08:17-0400 Diastolic blood pressure 84 mm[Hg] Padmini Athy PA-C Work Phone: [facility] 02-08-2023 08:17-0400 Heart rate 91 /min Padmini Athy PA-C Work Phone: [facility] 02-08-2023 08:17-0400 Respiratory rate 18 /min Padmini Braun PA-C Work Phone: [facility] 02-08-2023 08:17-0400 SaO2% (BldA) [Mass fraction] 98 % Padminilourdes Hilllisandra PA-C Work Phone: [facility] 02-08-2023 08:17-0400 Systolic blood pressure 128 mm[Hg] Padminilourdes Hilllisandra PA-C Work Phone: [facility] Encounters Encounter Date Encounter Type Care Provider Facility Start: 03-31-2025 End: 03-31-2025 ambulatory MAXIMINO JULIAN Facility:[facility] Start: 03-31-2025 End: 03-31-2025 Emergency department patient visit Charlee Humphries NP Facility:[facility] Start: 02-26-2025 End: 02-26-2025 Patient encounter procedure Mai Brandt VAULT PERSON.SIGNAL OPERATOR Work Phone: [facility] [place] Comment on above: Rhinosinusitis (Prim ulises Dx); Exposure to Streptococcal pharyngitis Start: 02-26-2025 End: 02-26-2025 ambulatory MAI BRANDT Facility:[facility] Start: 01-30-2025 End: 02-03-2025 ambulatory CHARLEE HUMPHRIES VAULT PERSON - SIGNAL OPERATOR Facility:[facility] Start: 01-30-2025 End: 02-03-2025 Outreach Lab CATHERINE COTTRELL VAULT PERSON-SIGNAL OPERATOR [facility] Start: 01-10-2025 Non-patient / Non-visit Dr. Anne ordoñez MD -[facility] Work Phone: Start: 12-24-2024 End: 12-24-2024 ambulatory Charlee Humphries PATIENT FLOW COORDINATOR-C Work Phone: [facility] Work Phone: Start: 12-24-2024 End: 12-24-2024 Patient encounter procedure Charlee Humphries PATIENT FLOW COORDINATOR-C -Laboratory Work Phone: Start: 12-24-2024 End: 12-24-2024 ambulatory Charlee Humphries PATIENT FLOW COORDINATOR Facility:[facility] Start: 09-27-2024 End: 09-27-2024 ambulatory CHARLEE HUMPHRIES VAULT PERSON - SIGNAL OPERATOR Facility:[facility] Start: 09-22-2024 End: 09-22-2024 ambulatory Charlee Humphries PATIENT FLOW COORDINATOR-C Work Phone: [facility] Work Phone: Start: 09-22-2024 End: 09-22-[address] Anne Ridley MD -Ultrasound, [facility] Work Phone: Start: 09-22-2024 End: 09-22-2024 ambulatory Anne Ridley Facility:[facility] Start: 08-17-2024 End: 08-17-2024 ambulatory CHARLEE HUMPHRIES Facility:[facility] Start: 08-17-2024 End: 08-17-2024 Office outpatient visit 25 minutes Millicent HENDRIX-C Work Phone: [facility] Comment on above: Urinary frequency (P rimary Dx); Acute UTI Start: 06-27-2024 End: 06-27-2024 Patient encounter procedure Charlee Humphries PATIENT FLOW COORDINATOR-C -Laboratory Work Phone: Start: 06-27-2024 End: 06-27-2024 ambulatory Charlee Humphries PATIENT FLOW COORDINATOR Facility:[facility] Start: 06-25-2024 End: 06-25-2024 Patient encounter procedure Charlee Humphries PATIENT FLOW COORDINATOR-C -Laboratory Work Phone: Start: 06-24-2024 End: 06-25-2024 ambulatory CHARLEE HUMPHRIES Facility:[facility] Start: 06-24-2024 End: 06-24-2024 Subsequent hospital visit by physician Fredo Garcia DO Work Phone: [facility] Comment on above: Screen for colon can cer [Z12.11] Start: 06-11-2024 Non-patient / Non-visit Dr. Gina Puente MD -[facility] Work Phone: Start: 06-10-2024 Non-patient / Non-visit Dr. Gina Puente MD -[facility] Work Phone: Start: 06-09-2024 ambulatory Charlee Humphries PATIENT FLOW COORDINATOR Facility:[facility] Start: 06-09-2024 End: 06-11-2024 Evaluation and management of inpatient Dr. Ghanshyam Puente MD -Medical Surgical 3 Work Phone: Start: 05-23-2024 End: 05-23-2024 ambulatory CHARLEE HUMPHRIES Facility:[facility] Start: 05-23-2024 End: 05-23-2024 Office outpatient visit 25 minutes Min Hameed VAULT PERSON.SIGNAL OPERATOR Work Phone: [facility] Comment on above: Urinary frequency (P rimary Dx) Start: 05-04-2024 End: 05-04-2024 Telephone encounter Maximino Julian MD Work Phone: [facility] Comment on above: Results (Urine Cx mi xed) Start: 05-02-2024 End: 05-02-2024 Patient encounter procedure Fabricio Garcia PA Work Phone: [facility] Comment on above: Acute UTI (Primary D x); Burning with urination Start: 05-02-2024 End: 05-02-2024 ambulatory CHARLEE HUMPHRIES Facility:[facility] Start: 03-29-2024 End: 03-29-2024 Patient encounter procedure Radha Navarro VAULT PERSON.SIGNAL OPERATOR Work Phone: General Surgery Comment on above: Screen for colon can cer (Primary Dx) Start: 11-24-2023 Telephone encounter Mai escobar VAULT PERSON.SIGNAL OPERATOR Work Phone: [facility] Comment on above: Results Start: 11-22-2023 End: 11-22-2023 Patient encounter procedure Jessica An VAULT PERSON.SIGNAL OPERATOR Work Phone: [facility] Comment on above: Urinary frequency (P rimary Dx) Start: 09-24-2023 End: 09-25-2023 ambulatory CHARLEE HUMPHRIES VAULT PERSON - SIGNAL OPERATOR Facility:[facility] Start: 09-24-2023 End: 09-24-2023 Patient encounter procedure CHARLEE HUMPHRIES VAULT PERSON - SIGNAL OPERATOR [facility] Start: 09-24-2023 End: 09-24-2023 Patient encounter procedure Jessica Juve VAULT PERSON.SIGNAL OPERATOR Work Phone: [facility] Comment on above: Rhinosinusitis (Prim ulises Dx) Start: 09-04-[address] RAMILA ADAMS MD Fa cility:[facility] Start: 06-08-2023 End: 06-08-2023 ambulatory [facility] Work Phone: Start: 06-08-2023 End: 06-08-2023 [facility] Start: 05-02-2023 End: 05-02-2023 Subsequent hospital visit by physician Xr [facility] Work Phone: Radiology Comment on above: Injury of toe on lef t foot, initial encounter [S99.922A] Start: 02-08-2023 End: 02-08-2023 Patient encounter procedure Padmini Braun PA-C Work Phone: [facility] Comment on above: Urinary frequency (P rimary Dx) Start: 11-29-2022 End: 11-29-2022 ambulatory [facility] Work Phone: Start: 11-29-2022 End: 11-29-2022 [facility] Start: 09-18-2022 End: 09-18-2022 Patient encounter procedure GEMINI HARPERKINSON VAULT PERSON-SIGNAL OPERATOR [facility] Start: 05-17-2022 End: 05-17-2022 ambulatory [facility] Work Phone: Start: 05-17-2022 End: 05-17-2022 [facility] Start: 03-22-2022 End: 03-22-2022 ambulatory [facility] Work Phone: Start: 03-22-2022 End: 03-22-2022 Patient encounter procedure [facility]-Laboratory Start: 02-25-2022 End: 02-26-2022 Evaluation and management of inpatient CHARLEE HUMPHRIES [facility] Start: 12-20-2021 End: 12-20-2021 Patient encounter procedure [facility]-Radiology, [facility] Start: 09-21-2021 End: 09-21-2021 Patient encounter procedure VEE FENTON VAULT PERSON-CNM [facility] Procedures Date Procedure Procedure Detail Performing Clinician Start: 02-26-2025 Iadna streptococcus group a amplified probe tq Mai Brandt VAULT PERSON.SIGNAL OPERATOR Work Phone: Start: 12-24-2024 Parathyroid hormone measurement Charlee Humphries PATIENT FLOW COORDINATOR-C Work Phone: Start: 12-24-2024 Vitamin D, 25-hydrox y measurement Charlee Humphries PATIENT FLOW COORDINATOR-C Work Phone: Comment on above: Vitamin D StatusDefi ciency: <20 ng/mL (50nmol/L)Insufficiency: 20-30 ng/mL (50-75 nmol/L)Sufficiency: 30-100 ng/mL (75-250 nmol/L)Toxicity: >100 ng/mL (>250 nmol/L) Start: 09-22-2024 Complete ultrasound of kidneys and bladder Charlee Humphries PATIENT FLOW COORDINATOR-C Work Phone: Start: 08-17-2024 Urnls dip stick/tabl et rgnt auto w/o microscopy Millicent Sol PA-C Work Phone: Start: 06-24-2024 Colonoscopy flx dx w /collj spec when pfrmd Radha Navarro VAULT PERSON.SIGNAL OPERATOR Work Phone: Start: 06-24-2024 Colonoscopy Fredo Fi gee DO Work Phone: Start: 06-09-2024 US scan of gallbladder Charlee Humphries PATIENT FLOW COORDINATOR-C Work Phone: Start: 05-23-2024 Urnls dip stick/tabl et rgnt auto w/o microscopy Maximino Julian MD Work Phone: Start: 05-02-2024 Urnls dip stick/tabl et rgnt auto w/o microscopy Padmini Braun PA-C Work Phone: Start: 11-22-2023 Urnls dip stick/tabl et rgnt auto w/o microscopy Betzaida Thornton VAULT PERSON.SIGNAL OPERATOR Work Phone: Start: 05-02-2023 Radex toe minimum 2 views Mehul Neves VAULT PERSON.SIGNAL OPERATOR Work Phone: Start: 02-08-2023 Urnls dip stick/tabl et rgnt auto w/o microscopy Padmini Braun PA-C Work Phone: Start: 12-20-2021 Plain x-ray of hand Start: 05-18-2019 Hysteroscopy fluid (substance) VEE FENTON VAULT PERSON-CN Start: 06-22-2018 Mammography Padmini Braun PA-C Work Phone: Start: 04-11-2009 Lipid 1996 panel - S daniella or Plasma Jessica An VAULT PERSON.[facility] Work Phone: section VEE GIBSON VAULT PERSON-CN Comment on above: x 2 Foot repair VEE Bartholomew PRN-CNM Comment on above: Joey surgery for bone on top of foot Plan of Treatment Date Care Activity Detail Author Start: 01-01-2029 Urine microalbumin profile DTaP,Tdap,Td Vaccine (4 - Td or Tdap) [facility] Start: 06-24-2025 Screening for malign ant neoplasm of colon [facility] Start: 03-13-2025 Influenza vaccination Influenza Vacc ine (#1) [facility] Start: 06-24-2024 End: 06-24-2024 Patient encounter procedure 06/24/2024 12:00 PM EST Appointment [facility] [address] [place] [address] Fredo Garcia, DO [address] [place] [address] colon [facility] Comment on above: colon Start: 06-11-2024 Patient discharge [facility] Start: 06-09-2024 Following clinical pathway protocol [facility] Start: 06-09-2024 Assessment of risk o f venous thromboembolism [facility] Start: 06-09-2024 Insertion of cathete r into peripheral vein [facility] Start: 06-09-2024 Providing care accor ding to standard [facility] Start: 06-09-2024 [facility] Start: 06-09-2024 Admission procedure [facility] Start: 03-13-2024 Covid-19 Vaccine ( season) Covid-19 Vaccine () [facility] Start: 03-13-2024 Covid-19 Vaccine ( season) Covid-19 Vaccine ( season) [facility] Start: 03-13-2024 Influenza vaccination Influenza Vacc ine (#1) [facility] Start: 12-23-2023 End: 12-23-2023 Patient encounter procedure 12/23/2023 4:15 PM EDT Office Visit General Surgery [address] [place] [address] Buzz Serrano MD [address] [place] [address] COLON CONSULT - PCP REFERRING - IN SCANNED DOC General Surgery Comment on above: COLON CONSULT - PCP REFERRING - IN SCANNED DOC Start: 07-13-2023 Behavioral Health Screening Behavioral Health Screening [facility] Start: 07-13-2023 Depression Assessment Depression Ass essment [facility] Start: 03-13-2023 Covid-19 Vaccine () Covid-19 Vaccine () [facility] Start: 03-13-2023 Influenza vaccination INFLUENZA (#1) [facility] Start: 07-13-2022 DEPRESSION ASSESSMENT DEPRESSION ASS ESSMENT [facility] Start: 09-16-2021 HPV TESTING HPV TESTING [facility] Start: 09-16-2021 PAP TESTING PAP TESTING [facility] Start: 09-16-2021 Screening for malign ant neoplasm of cervix [facility] Start: 2021 Pneumococcal Vaccine : 50+ (1 of 1 - PCV) Pneumococcal Vaccine: 50+ (1 of 1 - PCV) [facility] Start: 2021 SHINGRIX VACCINE (1 of 2) ANGULO GRIX VACCINE (1 of 2) [facility] Start: 06-22-2019 Mammography MAMMOGRAM [facility] Start: 06-22-2019 Screening for malign ant neoplasm of breast Mammogram Screening [facility] Start: 04-11-2019 Urine microalbumin profile DTAP,TDAP,TD (2 - Td or Tdap) [facility] Start: 2016 COLOGUARD (FIT-DNA) COLOGUARD (FIT-D NA) [facility] Start: 2016 Colonoscopy COLONOSCOPY [facility] Start: 2016 COLORECTAL CANCER SCREENING COLORECTAL CANCER SCREENING [facility] Start: [address] COLONOGRAPHY [facility] Start: 2016 DIABETES SCREEN DIABETES SCREEN [facility] Start: 2016 Diabetes Screening Diabetes Screenin g [facility] Start: 2016 FECAL OCCULT BLOOD FECAL OCCULT BLOO D [facility] Start: 2016 Lipid panel Lipid Screening [facility] Start: 2016 LIPID SCREEN LIPID SCREEN [facility] Start: 2016 Screening for malign ant neoplasm of colon [facility] Start: 2016 SIGMOIDOSCOPY SIGMOIDOSCOPY [facility] Start: 1990 Hepatitis B Vaccine (1 of 3 - 19+ 3-dose series) Hepatitis B Vaccine (1 of 3 - 19+ 3-dose series) [facility] Start: 1989 Anxiety Screening Anxiety Screening [facility] Start: 1989 Depression Screening Depression Scre ening [facility] Start: 1989 HEPATITIS C SCREENING HEPATITIS C [facility] Start: 1989 Hepatitis C screening Hepatitis C [facility] Start: 1989 HIV SCREENING HIV SCREENING [facility] Start: 1989 HIV screening HIV Screening [facility] Start: 1971 HEPATITIS B (1 of 3 - 3-dose series) HEPATITIS B (1 of 3 - 3-dose series) [facility] Bacteria identified in Urine by Culture URINE CULTURE Microbiology Routine Urinary frequency Ordered: 02/08/2023 [facility] Work Phone: Comment on above: Ordered: 02/08/2023 Bacteria identified in Urine by Culture URINE CULTURE Microbiology Routine Urinary frequency Ordered: 11/22/2023 [facility] Work Phone: Comment on above: Ordered: 11/22/2023 Bacteria identified in Urine by Culture URINE CULTURE Microbiology Routine Burning with urination Ordered: 05/02/2024 [facility] Work Phone: Comment on above: Ordered: 05/02/2024 Bacteria identified in Urine by Culture URINE CULTURE Microbiology Routine Urinary frequency Ordered: 05/23/2024 [facility] Work Phone: Comment on above: Ordered: 05/23/2024 Bacteria identified in Urine by Culture BACTERIAL CULTURE, URINE Microbiology Routine Urinary frequency Acute UTI Ordered: 08/17/2024 [facility] Work Phone: Comment on above: Ordered: 08/17/2024 Patient referral [facility] Work Phone: End: 03-29-2025 Screening colonoscopy COLONOSCOPY SCREENING Endoscopy Routine Screen for colon cancer 1 Occurrences starting 03/29/2024 until 03/29/2025 [facility] Work Phone: Comment on above: 1 Occurrences starti ng 03/29/2024 until 03/29/2025 Immunizations Immunization Date Immunization Notes Care Provider Fa [facility] 05-01-2024 influenza virus vaccine, unspecified formulation Mai Brandt VAULT PERSON.SIGNAL OPERATOR Work Phone: [facility] 04-11-2023 influenza, injectabl e, quadrivalent, contains preservative; Translations: [Fluarix PF Quadrivalent ] CHARLEE HUMPHRIES VAULT PERSON - SIGNAL OPERATOR [facility] 04-11-2023 influenza virus vaccine, unspecified formulation Radha Navarro VAULT PERSON.SIGNAL OPERATOR Work Phone: [facility] 08-09-2022 SARS-CoV-2 (CV19)mRNA-1273 bivalent vac CATHERINE COTTRELL VAULT PERSON-SIGNAL OPERATOR [facility] 05-06-2022 influenza, injectabl e, quadrivalent, contains preservative; Translations: [Fluarix PF Quadrivalent ] GEMINI DERAS VAULT PERSON-SIGNAL OPERATOR [facility] 05-04-2021 SARS-CoV-2 (COVID-19 ) mRNA-1273 vaccine CATHERINE COTTRELL VAULT PERSON-SIGNAL OPERATOR [facility] 04-16-2021 influenza, injectabl e, quadrivalent, contains preservative; Translations: [Fluarix PF Quadrivalent ] VEE FENTON VAULT PERSON-CN [facility] 04-06-2021 SARS-CoV-2 (COVID-19 ) mRNA-1273 vaccine CATHERINE COTTRELL VAULT PERSON-SIGNAL OPERATOR [facility] 03-17-2020 influenza virus vaccine, unspecified formulation VEE FENTON VAULT PERSON-CN [facility] 04-26-2019 influenza, injectabl e, quadrivalent, preservative free; Translations: [Fluarix PF Quadrivalent ] VEE FENTON VAULT PERSON-CN [facility] 01-01-2019 tetanus toxoid, reduced diphtheria toxoid, and acellular pertussis vaccine, adsorbed VEE FENTON VAULT PERSON-CNM [facility] 03-22-2018 influenza virus vaccine, unspecified formulation VEEMELCHOR FENTON VAULT PERSON-CNM [facility] 05-01-2017 influenza virus vaccine, unspecified formulation VEE JOSSY VAULT PERSON-CNM [facility] 04-18-2015 influenza virus vaccine, unspecified formulation VEE JOSSY VAULT PERSON-CNM [facility] 06-30-2014 influenza virus vaccine, unspecified formulation VEE JOSSY VAULT PERSON-CNM [facility] 05-03-2011 influenza virus vaccine, live, attenuated, for intranasal use Padmini HENDRIX-C Work Phone: [facility] Work Phone: 04-11-2009 influenza virus vaccine, unspecified formulation Padmini Braun PA-C Work Phone: [facility] 04-11-2009 tetanus toxoid, reduced diphtheria toxoid, and acellular pertussis vaccine, adsorbed Padmini Braun PA-C Work Phone: [facility] 02-09-2008 tetanus toxoid, reduced diphtheria toxoid, and acellular pertussis vaccine, adsorbed VEE JOSSY VAULT PERSON-CNM [facility] Payers Date Payer Category Payer Private Health Insurance [id number] 2024 Self-pay [id number] 2024 [employer] Blue Shield BLUE ACCE SS PPO [id number] 2024 Unknown [id number] 2023 Unknown [id number] 2019 Unknown [id number] 1971 Unknown [id number]. 651 1971 Unknown [id number]. 627 1971 Unknown [id number]. 627 1971 Unknown [id number]. 627 1971 Unknown [id number]. 627 Unknown [id number] [id number]. 462 Unknown [id number] [id number]. 462 Unknown [id number] [id number]. 462 Unknown [id number] [id number]. 462 Unknown [id number] [id number]. 462 Unknown [id number]. 462 Unknown [id number] [id number]. 462 Unknown [id number] [id number]. 462 Unknown [id number]. 462 Social History Date Type Detail Facility Start: 02-01-2019 End: 06-09-2024 Never smoked tobacco (finding) [facility] Start: 1970 Sex Assigned At Female [facility] Start: 04-19-2020 End: 04-19-2020 Tobacco smoking status NHIS Unknown if ever smoked [facility] Start: 04-19-2020 None [facility] Start: 04-19-2020 Spouse/ Signif icant Other;With Family [facility] Start: 02-08-2023 End: 02-26-2025 Alcohol intake Current drinker of alcohol (finding) [facility] Start: 02-08-2023 End: 03-29-2024 History of Social function [facility] Start: 02-08-2023 End: 03-29-2024 Tobacco use panel [facility] Start: 05-04-2013 [facility] Start: 1970 Sex Assigned At Not on file C [facility] Start: 06-13-2012 National Score (1-10 0), lower number is lower risk Not on file [facility] Start: 09-15-2019 End: 10-03-2024 Sex Female (finding) [facility] Sexual Orientation [facility] Goals Date Patient Goal Desired Activity /State Functional Status Date Assessment Result Facility 06-11-2024 Functional status Activity Abili ty Independent [facility] Work Phone: 06-10-2024 Functional status Patient Activity Up ad richie [facility] Work Phone: 05-12-2014 Are you deaf, or do you have serious difficulty hearing No 05/12/2014 1:22 PM EDT Leeanna Walton Ma [facility] 05-12-2014 Are you blind, or do you have serious difficulty seeing, even when wearing glasses No 05/12/2014 1:22 PM EDT Leeanna Walton Ma [facility] 05-12-2014 Do you have serious difficulty walking or climbing stairs No 05/12/2014 1:22 PM EDT Leeanna Walton Ma [facility] 05-12-2014 Do you have difficul ty dressing or bathing No 05/12/2014 1:22 PM EDT Leeanna Walton Ma [facility] 05-12-2014 Because of a physica l, mental, or emotional condition, do you have difficulty doing errands alone such as visiting a physician's office or shopping No 05/12/2014 1:22 PM EDT Leeanna Walton Ma [facility] Mental Status Date Assessment Result Facility 06-11-2024 Cognitive function Voice/Name [facility] Work Phone: 05-12-2014 Because of a physica l, mental, or emotional condition, do you have serious difficulty concentrating, remembering, or making decisions No 05/12/2014 1:22 PM EDT Leeanna Walton Ma [facility] Clinical Notes 02-08-2023 to 03-31-2025 Mai Brandt APRN.SIGNAL OPERATOR - 02/26/2025 9:32 AM EDTPatient Millicent Alcantar PA-C - 08/17/2024 7:34 AM Fredo Dotson DO - 06/24/2024 12:45 PM EST Note Date & Type Note Facility 03-31-2025 Note HNO ID: [id number] Author: MAXIMINO JULIAN MD Service: ? Author Type: Physician Type: Progress Notes Filed: 03/31/2025 18:41 Note Text: URGENT CARE [place] Subjective Ling Dias is a 54 year old female. Patient presents with: Plantar Fasciitis: Bilateral, chronic Patient has had bilateral foot pain for the last 3 months. She has been seeing a technician inventory specialist for the last 2 months. She has had injections and x-rays and worn boots. She has had worsening pain in her feet for the last 2 weeks. She was unable to get in with her specialist or her PCP. She feels her foot hurt worse when wearing a walking boot. She is taking Tylenol and ibuprofen for pain. Pain is in the bottom arch of the foot. Left foot is worse than the right. She denies any new injury, change in activity, fever, swelling, redness, bruising, numbness. Review of Systems Objective BP (!) 175/129 Pulse 95 Temp 36.8 ?C (98.2 ?F) Resp 18 Wt 122.9 kg (270 lb 15.1 oz) LMP (LMP Unknown) SpO2 100% BMI 41.20 kg/m? Physical Exam Constitutional: General: She is not in acute distress. Cardiovascular: Pulses: Dorsalis pedis pulses are 2+ on the right side and 2+ on the left side. Feet: Right foot: Skin integrity: No ulcer. Left foot: Skin integrity: No ulcer. Comments: FOOT/ANKLE: bilateral. Swelling not present. No erythema, ecchymosis, or deformity. Range of motion: inversion - non-painful, eversion - non-painful, anterior drawer- non-painful. able to bear weight. Mildly antalgic gait. Palpation: Medial malleolus non-painful, lateral malleolus non-painful, Dorsal proximal midfoot - non-painful, dorsal metatarsals non-painful, posterior calcaneus non-painful. Toes non-painful. Tender from the insertion of the plantar fascia through the arch of the foot Neurological: Mental Status: She is alert. {ASSESSMENT/PLAN: 1. Plantar fasciitis - ICD9: 728.71, ICD10: M72.2 - PREDNISONE 10 MG TABLET taper. Reports prednisone has been previously tolerated without side effect. Lab work is not available but she reports her CKD is improved. She denies issues with hyperglycemia. Avoid NSAID's while on steroid treatment (Aleve, Motrin, Advil, ibuprofen, or naproxen). May take acetaminophen (tylenol) as needed for pain relief. We discussed repeating x-ray which is expected to be of low yield without change in activity or injury. She declines resuming her walking boot. Ice after activity. She reports her elevated blood pressure is secondary to pain. She was at the ER but unable to get treatment. Advised follow-up with podiatry or PCP. Maximino Julian MD Differential Diagnoses - Plantar fasciitis is more likely for the following reason(s): suggested by HANDP - Fracture is less likely for the following reason(s): HANDP not suggestive Procedures [facility] 02-26-2025 Note HNO ID: [id number] Author: MAI BRANDT APRN.SIGNAL OPERATOR Service: ? Author Type: Nurse Practitioner Type: Progress Notes Filed: 02/26/2025 09:34 Note Text: URGENT CARE MOMAXX Dias is a 54 year old female. [...] Right lower leg: (more content not included)... [facility] 02-26-2025 History of Presen t illness Narrative [facility] a 54 year old [...] provider if symptoms persist. and Recording using ambient SPIRIT Navigation software for draft documentation of the visit was discussed with the patient/authorized retail sales representative; all questions welcomed and answered. Patient/authorized retail sales representative agreed to proceed MDM Procedures [1] Social History Tobacco Use Smoking status: Never Smokeless tobacco: Never Substance Use Topics Alcohol use: Yes Comment: very rarely Drug use: No documented in this encounter [facility] 02-26-2025 Instructions Mai Brandt APRN.CNP - 02/26/2025 9:26 AM EDT Images from the original note were not included. Adult Sinusitis Patient Education What is Sinusitis? Sinusitis [apui-cpv-htae-tis] is inflammation of the sinuses or swelling [...] help. You may be instructed to take yyeq-oei-pcknzte medications for symptoms. including fever reducers acetaminophen or ibuprofen, nasal saline spray, cough and cold preparations and decongestants as prescribed by the physician, nurse practitioner or physician assistant construction superintendent. Self-Care and Prevention: Rest Fluids for hydration Good hand washing Humidifier Avoid smoking and exposure to second hand smoke Avoid sick contacts documented in this encounter [facility] 02-01-2025 Note . MICRO - Microbiology PROCEDURE: [...] Locations *1: This test was performed at: [address], [address] [place] [address] 09-23-2024 Radiology Diagnostic study note [facility] Imaging Services [address] [place] [address] Kidney and Bladder MR#: [id number] Acct: [id number] Name: LING DIAS Rep #: [id number] : 1970 F 54 From: Forrest Perdue MD PCP: Charlee Humphries, PATIENT FLOW COORDINATOR-C Status: REG CLI Study:Kidney and Bladder Date of Exam: 0 09/22/24 Exam# [id number] Ordering Dr: Anne Ridley MD PROCEDURE: KIDNEY [...] is not seen during imaging. Reading Location: [id number] CC: CATIA-Bjorn Humphries; Dr. Anne Ridley MD ~ Gun Examiner: Signed [facility] 08-17-2024 Note HNO ID: [id number] Author: MILLICENT SOL PA-C Service: ? Author Type: Physician Porcelain Mixer Type: Progress Notes Filed: 08/17/2024 07:39 Note Text: This note was created using Nextinit. Subjective Ling Dias is a 54 year [...] PHENAZOPYRIDINE 100 MG TABLET Millicent Sol PA-C [facility] 08-17-2024 History of Presen t illness Narrative This note was created using Tax Alliriter. Subjective Ling Dias is a 54 year [...] Millicent Sol PA-C documented in this encounter [facility] 06-24-2024 History and physical note PROCEDURAL SEDATION [...] (MAC) SIGNATURE: Fredo Garcia DO PATIENT NAME: iLng Dias DATE: June 24, 2024 TIME: 12:14 PM [facility] 06-24-2024 History and physical note PROCEDURAL SEDATION [...] TIME: 12:14 PM documented in this encounter [facility] 06-11-2024 Note [facility] Medical Records Department [address] [place] [address] Discharge Summary 06/11/24 1415 MR#: [id number] Acct: [id number] Name: LING DIAS Rep #: [id number] : 1970 54 From: Ghanshyam Puente MD PCP: LEILANI LimC Status:DIS IN Location: MS3 [id number] Providers Date of Admission: 06/09/24 Primary Care Physician: Charlee Humphries, PATIENT FLOW COORDINATOR-C Reason For Visit: ABDOMINAL PAIN Diagnosis Discharge [...] RDW Std Hilda (more content not included)... [facility] 06-09-2024 Evaluation note Diagnosis Onset Date Resolution HTN (hypertension) resolved Novemb er 2023 4:55pm [facility] Work Phone: 1(639) 224-979011-11-2024 NoteHNO ID: [id number] Author: MIN HAMEED APRN.SIGNAL OPERATOR Service: ? Author Type: Nurse Practitioner Type: [...] Quervain's disease (tenosynovitis) Depression Dermatitis Elevated LFTs HCAYO (generalized anxiety disorder) Gallbladder sludge GERD (gastroesophageal [...] superficial or posterior (more content not included)... [facility]11-11-2024 History of Present illness Narrative* Min Hameed, [facility] - 05/23/2024 4:53 PM EST Subjective HPI [...] of care. This note was generated using [employer] software. It may contain errors in wording, punctuation, or spelling. Min Hameed APRN.JING documented in this encounterUniversity [facility] Telephone encounter Note * Telephone Encounter - Brooke Griggs MA - 05/04/2024 7:23 AM EDT Patient given results and verbalized understanding of instructions given. Brooke Griggs MA [facility]10-23-2024 Miscellaneous Notes* Telephone Encounter - Brooke Griggs MA - 05/04/2024 7:23 AM EDT Patient given results and verbalized understanding of instructions given. Brooke Griggs MA * Telephone Encounter - Maximino Julian MD - 05/04/2024 7:10 AM EDT Urine culture did not show a clear infection. Finish antibiotic and follow up with PCP, urology, orGYN for recheck. documented in this encounterUniversity [facility]24 Telephone encounter Note * Telephone Encounter - Maximino Julian MD - 05/04/2024 7:10 AM EDT Urine culture did not show a clear infection. Finish antibiotic and follow up with PCP, urology, orGYN for recheck. [facility]-21-2024 NoteHNO ID: [id number] Author: FABRICIO GARCIA PA Service: ? Author Type: Physician Porcelain Mixer Type: Progress Notes Filed: 05/02/2024 16:47 Note Text: This note was created using Sulmaqter. Subjective Ling Dias is a 53 year [...] in detail warranting prompt ER evaluation. Fabricio [facility]10-21-2024 History of Present illness Narrative* Fabricio Garcia PA - 05/02/2024 4:45 PM EDT This note was created using NoteWriter. Subjective Ling Dias is a 53 year [...] ER evaluation. RUMA Christianson documented in this encounterUniversity [facility] Nurse Note* Monisha Brooks RN - 03/29/2024 12:31 PM EDT This Nurse reviewed and provided patient with copy of written instructions for colonoscopy with SuTab prep. Gave patient a coupon for [employer] for the medication, incase her insurance does not cover it. The patient verbalized understanding and was given a number for questions. Monisha Brooks RN [facility]09-17-2024 Nurse Note* Monisha Brooks RN - 03/29/2024 12:31 PM EDT This Nurse reviewed and provided patient with copy of written instructions for colonoscopy with SuTab prep. Gave patient a coupon for [employer] for the medication, incase her insurance does not cover it. The patient verbalized understanding and was given a number for questions. Monisha Brooks RN documented in this encounterUniversity [facility]als [facility]09-17-[facility]24 History of Present illness Narrative* Radha Navarro APRN.JING - 03/29/2024 10:00 AM EDT HISTORY AND PHYSICAL Ling Tucker Jonathanlisandra : 1970 REFERRING PHYSICIAN: Charlee Humphries, MARA [address] [facility] [address] CHIEF COMPLAINT: Patient presents with: Consult: Colonoscopy [...] (89 F), height 172.7 cm (5' 8), iqpgkv770.5 kg (272 lb 3.2 oz), SpO2 98%. [...] necessary. Radha Navarro APRN.JING documented in this encounterUniversity Hospitals [facility]05-14-2024 Telephone encounter Note * Telephone Encounter - Cecilia Bishop LPN - 11/24/2023 11:28 AM EDT Pt notified of results and provider's message. Cecilia Bishop LPN [facility]05-14-2024 Miscellaneous Notes* Telephone Encounter - Cecilia Bishop [...] symptoms. Please advise patient documented in this encounterUniversity Hospitals [facility]05-14-2024 Telephone encounter Note * Telephone Encounter - Mai Brandt APRN.CNP - 11/24/2023 10:59 AM EDT Urine culture reveals bacterial growth. The Macrobid prescribed is appropriate. Please complete allof the antibiotic. Follow up with your PCP for continued and/or worsening symptoms. Please advise patient [facility]05-12-2024 History of Present illness Narrative* Jessica An APRN.JING - 11/22/2023 8:12 AM EDT CC: Patient [...] Patient agreeable to treatment plan. Jessica An APRN.CNP documented in this encounterUniversity Hospitals [facility]03-14-2024 History of Present illness Narrative* Jessica An [...] upon. Jessica An APRN.JING [place] [address]23 History of Present illness Narrative* Padmini Braun PA-C - 02/08/2023 8:41 AM EDT This note was created using Tax Alliriter. Subjective Ling Dias is a 52 year [...] CAP Padmini Braun PA-C documented in this encounterUniversity Hospitals Parma Medical CenterEvaluation + Plan note Future Appointments Appointment Date:11/21/2021 10:40:00 AM Scheduled Provider:CHARLEE HUMPHRIES APRN - JING Location:[facility] Appointment Type: OV Future Scheduled Tests Laboratory* Thyroid Stimulating Hormone 11/20/21 * Free T4 11/20/21 * Pathology Distributed Generation Project Manager Request 09/02/21 * Complete Blood Count 11/20/21 * Lipid Profile 11/20/21 * Prothrombin Time - Panel 07/02/21 * Complete Metabolic Panel 11/20/21 [facility] Evaluation + Plan note Future Appointments Appointment Date:11/24/2022 10:40:00 AM Scheduled Provider:CHARLEE HUMPHRIES APRN, CNP [...] Appointments Appointment Date:12/03/2023 09:30:00 AM Scheduled Provider: Location:[facility] Appointment Type:PC Nurse Lab Appointment Date:12/10/2023 10:40:00 AM Scheduled Provider:CHARLEE HUMPHRIES APRN, CNP Location:[facility] Appointment Type: OV Follow Up Future Scheduled Tests Laboratory* [...] 09:40:00 AM Scheduled Provider:CHARLEE HUMPHRIES APRN, CNP Location:[facility] Appointment Type: OV Future Scheduled Tests [...] 06/17/24 [facility] Evaluation noteNo assessment information available [facility] Work Phone: Evaluation note* Diagnosis Urinary frequency- Primary documented in this encounter [facility]* Diagnosis Rhinosinusitis- Primary Unspecified sinusitis (chronic) documented in this encounter [facility]* Diagnosis Urinary frequency- Primary documented in this encounter [facility]* Diagnosis Screen for colon cancer- Primary Special screening for malignant neoplasms, colon documented in this encounter [facility]* Diagnosis Acute UTI- Primary Urinary tract infection, site not specified Burning with urination Dysuria documented in this encounter [facility] note* Diagnosis Urinary frequency- Primary documented in this encounter [facility] note* Diagnosis Family history of breast cancer in mother- Primary Family history of malignant neoplasm of breast Screen for colon cancer Special screening for malignant neoplasms, colon documented in this encounter [facility] note* Diagnosis Urinary frequency- Primary Acute UTI Urinary tract infection, site not specified documented in this encounter [facility] note* Diagnosis Rhinosinusitis- Primary Unspecified sinusitis (chronic) Exposure to Streptococcal pharyngitis Contact with or exposure to other communicable diseases documented in this encounter [facility] course Narrative No data available for this section [facility] Discharge instructions No data available for this section [facility] Progress note No data available for this section [facility] Reason for referral (narrative)* Outpatient Procedure (Routine) - Authorized Specialty Diagnoses / Procedures Referred By Tesfaye west Referred To Contact [facility] Diagnoses Screen for colon cancer Procedures COLONOSCOPY SCREENING COLONOSCOPY FLX DX W/COLLJ SPEC WHEN Radha Sood APRN.CNP [address] [place] [address] [address] Referral ID Status Reason Start Date Expiration Date Visits Requested Visits Authorized [id number] Authorized Auto-Generat ed Referral 03/29/2024 03/29/2025 1 1 [facility] (narrative)* Outpatient Procedure (Routine) - Closed Specialty Diagnoses / Procedures Referred By Tesfaye west Referred To Contact [facility] Diagnoses Screen for colon cancer Procedures COLONOSCOPY SCREENING COLONOSCOPY FLX DX W/COLLJ SPEC WHEN Radha Sood APRN.CNP [address] [place] [address] [facility] Disease [place] [id number] Referral ID Status Reason Start Date Expiration Date V isits Requested Visits Authorized [id number] Closed Auto-Generate d Referral 05/12/2024 07/12/2024 1 1 [facility] for referral (narrative)No reason for referral information availableWAultman [facility] Work Phone: Reason for visit Narrative* Diagnostic Procedure Only (Urgent) - Closed Specialty Diagnoses / Procedures Referred By Contac t Referred To Contact XR IMAGING Diagnoses Injury of toe on left foot, initial encounter Procedures XR TOE AP/LAT/OBL LEFT RADEX TOE MINIMUM 2 VIEWS Mehul Neves APRN.SIGNAL OPERATOR [address] [id number] [place] [address] Referral ID Status Reason Start Date Expiration Date V isits Requested Visits Authorized [id number] Closed Auto-Generate d Referral 05/02/2023 05/31/2024 1 1 [facility] for visit Narrative* Outpatient Procedure (Routine) - Closed Specialty Diagnoses / Procedures Referred By Contac t Referred To Contact [facility] Diagnoses Screen for colon cancer Procedures COLONOSCOPY SCREENING COLONOSCOPY FLX DX W/COLLJ SPEC WHEN Radha Sood APRN.SIGNAL OPERATOR [address] [place] [address] [facility] [address] [place] [address] Referral ID Status Reason Start Date Expiration Date V isits Requested Visits Authorized [id number] Closed Auto-Generate d Referral 05/12/2024 07/12/2024 1 1 [facility] Chief Complaint and Reason for Visit Chief [...] 5pm LABS December 24, 2024 8:01 am Chief Complaint Admit Date LABS December 24, 2024 8:01 am foot March 31, 2025 3:16pm Advance Directives Advance Directive Response Recorded Date/ Time Living Will No April 19 0 8:10am Power of Tank Operator No April 19 8:10am Advance Directive Response Recorded Date/ Time Living Will No April 19 0 7:10am Power of Tank Operator No April 19 7:10am Advance Directive Response Recorded Date/ Time Living Will No June 09 6:33pm Do you have a Healthcare Pow er of Tank Operator? Yes June 09, 2024 6:33pm Name of Medical Power of Tank Operator Dvaid fry June 09, 2024 6:33pm Summary Purpose Family History No Family History Records Found Additional Source Comments Goals (unrecognized section and content) Goals may be documented in a n alternate section INFORMATION SOURCE (unrecogn ized section and content) DATE CREATED AUTHOR 03/04/2022 [facility] DATE CREATED AUTHOR AUTHOR'S ORGANIZ ATION 09/28/2023 [facility] DATE CREATED AUTHOR AUTHOR'S ORGANIZ ATION 06/26/2024 [facility] DATE CREATED AUTHOR AUTHOR'S ORGANIZ ATION 02/05/2025 [facility] DATE CREATED AUTHOR AUTHOR'S ORGANIZ ATION 04/02/2025 [facility] DATE CREATED AUTHOR AUTHOR'S ORGANIZ ATION 04/04/2025 [facility] Care Team (unrecognized sect ion and content) Care Team Personnel Name: CHARLEE HUMPHRIES VAULT PERSON - SIGNAL OPERATOR Position: P4 Advanced Cutter Grind Tool Technician Member Role: Primary Care Physician Address: Address: [address] [place] [address]- [place] Care Team Related Persons Name: DAVID DIAS Address: Home [address] [place], [place] [id number] [place] Care Teams (unrecognized sec tion and content) Team Status: Active Member Role Status Dates Charlee Humphries PATIENT FLOW COORDINATOR, PATIENT FLOW COORDINATOR-C Family Provider Activ e Charlee Humphries PATIENT FLOW COORDINATOR, PATIENT FLOW COORDINATOR-C Primary Care Provider Active Team Status: Inactive Member Role Status Dates Charlee Humphries PATIENT FLOW COORDINATOR, PATIENT FLOW COORDINATOR-C Primary Care Provider, Attending Provider Active Liquor Tester Relationship Specialty Start Date End Date Charlee Humphries CNP [address] [place] [address] PCP - General Family Medicine 04/26/10 Team Status: Inactive Member Role Status Dates Charlee Humphries PATIENT FLOW COORDINATOR, PATIENT FLOW COORDINATOR-C Primary Care Provider, Attending Provider, Referring Provider Active Liquor Tester Relationship Specialty Start Date End Date Charlee Humphries CNP [address] [place] [id number] PCP - General Family Medicine 04/26/10 Liquor Tester Relationship Specialty Start Date End Date Charlee Humphries CNP [address] [place] [address] PCP - General Family Medicine 04/26/10 Liquor Tester Relationship Specialty Start Date End Date Charlee Humphries CNP [address] [place] [address] PCP - General Family Medicine 04/26/10 Liquor Tester Relationship Specialty Start Date End Date Charlee Humphries CNP [address] [place] [address] PCP - General Family Medicine 04/26/10 Liquor Tester Relationship Specialty Start Date End Date Charlee Humphries CNP [address] [place] [address] PCP - General Family Medicine 04/26/10 Liquor Tester Relationship Specialty Start Date End Date Charlee Humphries CNP [address] [place] [address] PCP - General Family Medicine 04/26/10 Liquor Tester Relationship Specialty Start Date End Date Charlee Humphries CNP [address] [place] [address] PCP - General Family Medicine 04/26/10 Liquor Tester Relationship Specialty Start Date End Date Charlee Humphries CNP [address] [place] [address] PCP - General Family Medicine 04/26/10 Team Status: Active Member Role Status Dates Charlee Humphries PATIENT FLOW COORDINATOR, PATIENT FLOW COORDINATOR-C Primary Care Provider Active Team Status: Inactive Member Role Status Dates Charlee Humphries PATIENT FLOW COORDINATOR, PATIENT FLOW COORDINATOR-C Primary Care Provider Active Start: June 092023 [...] Active Member Role Status Dates Charlee Humphries PATIENT FLOW COORDINATOR, PATIENT FLOW COORDINATOR-C Primary Care Provider Active Start: June 102023 Dr. Marquise Brown , Emergency Provider Activ e Start: June 10, 2024 Dr. Kadie Ta MD Admit Provider Active St art: June 10, 2024 Dr. Kadie Ta MD Other Provider Active St art: June 10, 2024 Dr. Ghanshyam Puente MD Attending Provider Active Start: June 10, 2024 Dr. Ghanshyam Puente MD Other Provider Active Start: June 10, 2024 Team Status: Active Member Role Status Dates Charlee Humphries PATIENT FLOW COORDINATOR, PATIENT FLOW COORDINATOR-C Primary Care Provider Active Start: June 112023 Dr. Marquise Brown DO Emergency Provider Activ e Start: June [...] Inactive Member Role Status Dates Charlee Humphries PATIENT FLOW COORDINATOR, PATIENT FLOW COORDINATOR-C Primary Care Provider Active Start: June 252023 End: June 25, 2024 Charlee Humphries PATIENT FLOW COORDINATOR, PATIENT FLOW COORDINATOR-C Attending Provider Active Start: June End: June 25, 2024 Charlee Humphries PATIENT FLOW COORDINATOR, PATIENT FLOW COORDINATOR-C Referring Provider Active Start: June End: June 25, 2024 Team Status: Inactive Member Role Status Dates Charlee Humphries PATIENT FLOW COORDINATOR, PATIENT FLOW COORDINATOR-C Primary Care Provider Active Start: June 272023 End: June 27, 2024 Charlee Humphries PATIENT FLOW COORDINATOR, PATIENT FLOW COORDINATOR-C Attending Provider Active Start: June End: June 27, 2024 Charlee Humphries PATIENT FLOW COORDINATOR, PATIENT FLOW COORDINATOR-C Referring Provider Active Start: June End: June 27, 2024 Team Status: Inactive Member Role Status Dates Charlee Humphries PATIENT FLOW COORDINATOR, PATIENT FLOW COORDINATOR-C Primary Care Provider Active Start: September 22, 2024 End: September 22, 2024 Dr. Anne Ridley MD Attending Provider Active Start: September 22, 2024 End: September 22, 2024 Dr. Anne Ridley MD Referring Provider Active Start: September 22, 2024 End: September 22, 2024 Team Status: Inactive Member Role Status Dates Charlee Humphries PATIENT FLOW COORDINATOR, PATIENT FLOW COORDINATOR-C Primary Care Provider Active Start: December 24, 2024 End: December 24, 2024 Charlee Humphries PATIENT FLOW COORDINATOR, PATIENT FLOW COORDINATOR-C Attending Provider Ac tive Start: December 24, 2024 End: December 24, 2024 Charlee Mian Guadalupe PATIENT FLOW COORDINATOR, PATIENT FLOW COORDINATOR-C Referring Provider Ac tive Start: December 24, 2024 End: December 24, 2024 Team Status: Active Member Role/Relationship Status Dates Charlee Humphries PATIENT FLOW COORDINATOR, PATIENT FLOW COORDINATOR-C Primary care physicia n Active Team Status: Inactive Member Role/Relationship Status Dates Charlee Mian Humphries PATIENT FLOW COORDINATOR, PATIENT FLOW COORDINATOR-C Primary care physicia n Active Start: December 24, 2024 End: December 24, 2024 Charlee Humphries NP, PATIENT FLOW COORDINATOR-C Attending physician A ctive Start: December 24, 2024 End: December 24, 2024 Charlee Humphries PATIENT FLOW COORDINATOR, PATIENT FLOW COORDINATOR-C Referring Provider Ac tive Start: December 24, 2024 End: December 24, 2024 Team Status: Inactive Member Role/Relationship Status Dates Charlee Humphries PATIENT FLOW COORDINATOR, PATIENT FLOW COORDINATOR-C Primary care physicia n Active Start: January 10, 2025 Dr. Anne Ridley MD Attending physician Active Start: January 10, 2025 Team Status: Inactive Member Role/Relationship Status Dates Charlee Humphries PATIENT FLOW COORDINATOR, PATIENT FLOW COORDINATOR-C Primary care physician Active Start: March 31, 2025 End: March 31, 2025 Ed Physician Provider Attending physician Active Start: March 31, 2025 End: March 31, 2025 Ed Physician Provider Emergency Departme nt Physician Active Start: March 31, 2025 End: March 31, 2025 Source Comments (unrecognize d section and content) In the event this informatio n is protected by the Federal Confidentiality of Alcohol and Drug Abuse Patient Records regulations: The Federal rules restrict any use of the information to criminally investigate or prosecute any alcohol or drug abuse patient.[facility] the event this information is protected by the Federal Confidentiality of Alcohol and Drug Abuse Patient Records regulations: The Federal rules restrict any use of the information to criminally investigate or prosecute any alcohol or drug abuse patient.[facility] the event this information is protected by the Federal Confidentiality of Alcohol and Drug Abuse Patient Records regulations: The Federal rules restrict any use of the information to criminally investigate or prosecute any alcohol or drug abuse patient.[facility] the event this information is protected by the Federal Confidentiality of Alcohol and Drug Abuse Patient Records regulations: The Federal rules restrict any use of the information to criminally investigate or prosecute any alcohol or drug abuse patient.[facility] Center[facility] the event this information is protected by the Federal Confidentiality of Alcohol and Drug Abuse Patient Records regulations: The Federal rules restrict any use of the information to criminally investigate or prosecute any alcohol or drug abuse patient.[facility] CenterIn the event this information is protected by the Federal Confidentiality of Alcohol and Drug Abuse Patient Records regulations: The Federal rules restrict any use of the information to criminally investigate or prosecute any alcohol or drug abuse patient.[facility] CenterIn the event this information is protected by the Federal Confidentiality of Alcohol and Drug Abuse Patient Records regulations: The Federal rules restrict any use of the information to criminally investigate or prosecute any alcohol or drug abuse patient.[facility] CenterIn the event this information is protected by the Federal Confidentiality of Alcohol and Drug Abuse Patient Records regulations: The Federal rules restrict any use of the information to criminally investigate or prosecute any alcohol or drug abuse patient.[facility] CenterIn the event this information is protected by the Federal Confidentiality of Alcohol and Drug Abuse Patient Records regulations: The Federal rules restrict any use of the information to criminally investigate or prosecute any alcohol or drug abuse patient.[facility] CenterIn the event this information is protected by the Federal Confidentiality of Alcohol and Drug Abuse Patient Records regulations: The Federal rules restrict any use of the information to criminally investigate or prosecute any alcohol or drug abuse patient.[facility] CenterIn the event this information is protected by the Federal Confidentiality of Alcohol and Drug Abuse Patient Records regulations: The Federal rules restrict any use of the information to criminally investigate or prosecute any alcohol or drug abuse patient.[facility] CenterIn the event this information is protected by the Federal Confidentiality of Alcohol and Drug Abuse Patient Records regulations: The Federal rules restrict any use of the information to criminally investigate or prosecute any alcohol or drug abuse patient.[facility] Reason for Visit (unrecogniz ed section and [...] BE BASED ON THE PRIMARY CLINICAL RECORDS. [facility]. provides no warranty or guarantee of the accuracy or completeness of information in this document.
[2025-05-06 21:23] LABS: Hematocrit 45.5 % (37-47); Hemoglobin 14.9 g/dL (12.0-15.0); Immature Granulocytes Count 0.040 X10^3/uL (0.0-0.0); Mean Corp Hgb Conc 32.7 g/dL (32-36); Mean Corpuscular Volume 84.1 fL (81-99); Mean Platelet Vol. 9.1 fl (6.2-12.0); NRBC Flagged by Analyzer 0 % (0-5); Platelet Count 320 K/mm3 (150-450); RBC Distribution Width CV 13.9 % (11.6-14.6); RBC Distribution Width SD 42.3 fl (35.1-43.9); Red Blood Count 5.41 M/mm3 (4.2-5.4); White Blood Count 8.0 K/mm3 (4.4-11.0)
[2025-05-06 21:24] VITALS: BP 150/94; PULSE 87; RESP 16; O2SAT 97
--- NOTE | 2025-05-06 21:29 | EDS_ITS ---
HPI History of Present Illness Chief Complaint: Upper Extremity Injury Informant: patient and spouse/S.O. Narrative Narrative: Patient is a 54-year-old female with a history of HTN and hypothyroidism presenting with left chest/axillary pain, nausea, and fatigue. - Pain began 5-6 days ago, initially described as a pins and needles sensation radiating down the left arm into the fingers; has not recurred. - Pain later extended to the base of the neck on the same day. - Reports tenderness in the left anterior axillary region, exacerbated by certain movements, such as pushing herself up from a prone position, which elicited a stabbing pain today once. - Denies pain with general shoulder or head movement. - Denies feeling a palpable knot in the area. - Denies any recent injury/trauma. - Engaged in moving a heavy metal table and using a hot tub 3 days before symptom onset; used the hot tub to attempt to alleviate this pain. - Denies fever, cough, dyspnea, diarrhea, or hematochezia. - Reports nausea and decreased appetite and fatigue for 2-3 days now, but denies abdominal pain. - Denies any history of DM. - Currently taking metaxalone, started 3-4 days ago; also takes trazodone as needed for sleep. [facility] Medical History Anxiety Depression Thyroid disease Sinus infection GERD (gastroesophageal reflux disease) HTN (hypertension) Home Medications ?Medication ?Instructions ?Recorded ?Last Taken ?Type levothyroxine 25 mcg tablet 50 mcg PO DAILY thyroid Unknown History amlodipine 5 mg tablet 5 mg PO DAILY bp 06/09/24 Un known History buspirone 5 mg tablet 10 mg PO QHS PRN sleep 06/09 Unknown History guaifenesin 600 mg tablet, 600 mg PO BID sinus infecti on 06/09/24 Unknown History extended release 12 hr losartan 100 mg tablet 100 mg PO DAILY bp 06/09/24 Unknown History meclizine 25 mg chewable tablet 25 mg PO DAILY PRN diz ziness 06/09/24 Unknown History (Antivert) omeprazole 40 mg capsule,delayed 40 mg PO DAILY gerd 1 08/09/23 Unknown History release sertraline 25 mg tablet 50 mg PO DAILY mood 06/09/24 Unknown History venlafaxine 150 mg 150 mg PO DAILY mood 4 Unknown History capsule,extended release 24 hr Allergy/AdvReac Type Severity Reaction Status Date / Time No Known Allergies Allergy Verified 05/06/25 19:56 Family History (Updated 11/21/17 @ 11:39 by Marta Carter) Other Breast cancer Surgical History Hx of section Social History Smoking Status: Never smoker alcohol intake: never ROS ROS ED Constitutional Constitutional ED: Denies chills or fever(s) Eyes Eyes: Denies change in vision or diplopia ENT ENT ED: Denies rhinorrhea or sore throat Cardiovascular Cardiovascular: Reports chest pain; Denies palpitations Respiratory/Chest Respiratory/Chest: Denies cough or dyspnea Gastrointestinal Gastrointestinal: Denies abdominal pain, diarrhea, nausea or vomiting Genitourinary Genitourinary ED: Denies dysuria or hematuria Musculoskeletal Musculoskeletal: Reports neck pain; Denies back pain Integumentary Denies abscess or rash Neurologic Neurologic: Reports paresthesias LUE (transient, once sev days ago); Denies headache(s) or weakness Psychiatric Psychiatric: Denies anxiety or suicidal thoughts EXAM Physical Exam Const Vital Signs: 05/06/25 19:56 05/06/25 19:56 05/06/25 21:17 Temperature 98 F Temperature Source Temporal Pulse Rate 123 H 123 H Respiratory Rate 20 H 18 Blood Pressure 204/121 H 201/119 H Blood Pressure Mean 148 146 Pulse Ox 98 98 Oxygen Delivery Method Room Air Room Air 05/06/25 21:24 Temperature Temperature Source Pulse Rate 87 Respiratory Rate 16 Blood Pressure 150/94 H Blood Pressure Mean 112 Pulse Ox 97 Oxygen Delivery Method Room Air Positive well nourished, well developed and obese General Appearance ED: well developed and NAD Nutritional Appearance: obese HEENT Reports moist mucous membranes normocephalic and atraumatic Eyes PERRL and EOMs intact bilaterally Neck full ROM and supple Neck Narrative: No tenderness when sitting at rest but when she turns her head [id number] she had some transient mild left trapezius pain on top of her left shoulder/neck. Chest Wall inspection of chest normal Chest Narrative: Mildly tender in the left pectoral musculature near the anterior aspect of the left axilla. No palpable subcutaneous nodules or axillary lymphadenopathy or abscess/skin abnormality. When having the patient stretch her arms out in front of her and adduct her hands together against resistance, she reproduces the pain in the left pectoral musculature where she is mildly tender. Resp normal respiratory effort and clear to auscultation bilaterally Cardio regular rate, regular rhythm and no murmurs GI non-tender and non-distended Auscultation: normoactive bowel sounds Palpation: soft Back/Spine no CVA tenderness General Back: other FROM Extremity normal to inspection and full ROM Extremity Narrative: Full range of motion to the left shoulder without any difficulty or limitation. Neurovascular intact distally throughout all 4 extremities. General Extremety ED: Negative for edema, pulses abnormal or tenderness General Extremity: Negative for edema or pulses abnormal Neuro oriented x3, CN's II-XII intact bilaterally and no sensory deficits noted Sensorium / Orientation: awake and alert Motor Exam: strength 5/5 throughout Psych mental status grossly normal Skin no rashes or lesions noted and no wounds MDM MDM MDM Narrative Medical decision making narrative: HEART 1, 0, 1, 1, 0 = 3 Assessment: The patient is a 54-year-old female with PMH of hypertension, hypothyroidism, and insomnia presenting for five-day history of left lateral chest/axillary pain with intermittent tingling into the left arm, associated nausea, malaise, and initial systolic BP >200 mmHg. Pain is reproducible with pectoral muscle contraction and focal palpation; full shoulder and neck range of motion intact. No concerning pulmonary or cardiac findings on exam. Differential included musculoskeletal strain versus cervical radiculopathy, medication adverse effect, and acute coronary syndrome. Given normal troponin (<6), EKG showing only borderline LVH by voltage without ischemic changes, and normal single-view chest X-ray, ACS is effectively ruled out. Overall picture favors musculoskeletal chest wall strain likely exacerbated by recent lifting and possible sedative effects from new metaxalone combined with chronic trazodone contributing to fatigue and nausea; transient hypertension likely anxiety related, resolved without intervention. Plan: - Discontinue metaxalone; suspect adverse effect causing fatigue/nausea. - Provide supportive care: advise heat/ice to affected area, initiate PRN NSAIDs (e.g., ibuprofen) for pain. - No further muscle relaxants or imaging required at this time. - Discharged home with reassurance; instructed to follow up with primary care for blood pressure monitoring and ongoing symptom assessment. - Patient counseled on medication side effects, anticipated musculoskeletal recovery, and indications to return; all questions addressed. Diagnostics: - EKG: borderline left ventricular hypertrophy by voltage criteria, otherwise normal; no ischemic changes. Independently interpreted by Naun cr. - Chest X-ray 1 view: normal. - Labs: troponin <6 ng/L, normal; remaining basic labs within normal limits. Reevaluations: - Blood pressure reassessed post-evaluation decreased to 130s systolic without pharmacologic intervention; patient asymptomatic and comfortable, agrees with discharge plan. Lab Data Attestation: I reviewed the patient's lab results. Labs: Laboratory Results - last 24 hr 05/06/25 21:15 WBC 8.0 RBC 5.41 H Hgb 14.9 Hct 45.5 MCV 84.1 MCH 27.5 MCHC 32.7 RDW Std Deviation 42.3 RDW Coeff of Kristyn 13.9 Plt Count 320 MPV 9.1 Immature Gran % (Auto) 0.500 Neut % (Auto) 83.0 H Lymph % (Auto) 13.6 L [place] % (Auto) 2.4 Eos % (Auto) 0.0 Baso % (Auto) 0.5 Absolute Neuts (auto) 6.6 Absolute Lymphs (auto) 1.09 Nucleated RBC % 0 Radiography Diagnostic Testing: Clinical Impression(s) from Imaging Studies Chest X-Ray 05/06/25 20:44 IMPRESSION: As above. Reading Location: [facility] Rhythm Strip Rhythm Strip: Sinus Rhythm Rate: 93 Ectopy: None EKG Initial EKG: Attestation: I personally reviewed and interpreted this EKG as follows: Interpretation: Sinus Rhythm and No Acute Injury Pattern Comments: Borderline LVH via voltage criteria, otherwise EKG unremarkable with normal intervals and axis. Prior EKG tracings: available for review Prior: Unchanged (except for higher voltage now) Discharge Plan Triage Chief Complaint: Upper Extremity Injury ED Provider: Naun Parson Dx/Rx/DC Orders Clinical Impression: Chest pain, musculoskeletal, Adverse drug effect, Episode of hypertension, Arm paresthesia, left Prescriptions: No Action levothyroxine 25 MCG tablet 50 mcg PO DAILY amlodipine 5 mg tablet 5 mg PO DAILY venlafaxine 150 mg capsule,extended release 24hr 150 mg PO DAILY losartan 100 mg tablet 100 mg PO DAILY omeprazole 40 mg capsule,delayed release(DR/EC) 40 mg PO DAILY meclizine [Antivert] 25 mg tablet,chewable 25 mg PO DAILY PRN (Reason: dizziness) guaifenesin 600 mg tablet extended release 12hr 600 mg PO BID buspirone 5 MG tablet 10 mg PO QHS PRN sertraline 25 MG tablet 50 mg PO DAILY Primary Care Provider: Abel Humphries NP Referrals: Abel Humphries INFECTION PREVENTION SPECIALIST, INFECTION PREVENTION SPECIALIST-C [Primary Care Provider, [facility]] Activity Restrictions/Additional Instructions: - Stop taking metaxalone (the muscle relaxer) immediately, as it is suspected to be the cause of your feeling fatigued/nauseated. - Continue your blood pressure medication, thyroid medication, and trazodone at night as prescribed. - For the left chest/shoulder muscle discomfort, apply a warm compress to the area and take ibuprofen or another [id number] NSAID as needed for relief. - Your EKG, chest X-ray, troponin level, and other blood tests were all normal today. Print Language: Greek Disposition Disposition: Home, Self Care
[2025-05-06 22:21] LABS: Anion Gap 10 (5-15); BUN 18 mg/dL (4-19); BUN/Creat Ratio 18.5 RATIO (10-20); Calcium,Total 9.5 mg/dL (7.6-11.0); Carbon Dioxide 26.9 mmol/L (21.0-32.0); Chloride 105 mmol/L (98-108); Estimated Creatinine Clearance 90.74 ml/min (50-250); Glucose 140 mg/dL (70-99); Potassium 4.0 mmol/L (3.3-5.1); Troponin T High Sensitivity < 6 ng/L (<=14)
[2025-05-06 22:24] VITALS: BP 139/93; PULSE 83; RESP 16; O2SAT 97
[2025-05-06 22:49] VITALS: BP 148/97; PULSE 78; RESP 16; TEMP 36.6; O2SAT 99
== END 2025-05-06 22:57 | disposition home or self-care (01) ==
PROVIDERS: Emergency Provider Emergency Medicine; PCP Nurse Practitioner Family; Visit Provider Emergency Medicine
DX: R07.89 Other chest pain (principal); I10 Essential (primary) hypertension; R20.2 Paresthesia of skin; E03.9 Hypothyroidism, unspecified; Z79.890 Hormone replacement therapy; F41.9 Anxiety disorder, unspecified; F32.A Depression, unspecified; K21.9 Gastro-esophageal reflux disease without esophagitis; Z79.899 Other long term (current) drug therapy; T42.8X5A Adverse effect of antiparkinsonism drugs and other central muscle-tone depressants, initial encounter; T50.995A Adverse effect of other drugs, medicaments and biological substances, initial encounter
CPT/HCPCS: 71046; 80048; 84484; 85025; 93005; 96374; 96376; 99285; A4216; J2405

== ENCOUNTER → 2025-06-19 | Outpatient (CLI) | payer BC, SELFPAY ==
[2025-06-19 10:00] LABS: Hematocrit 41.7 % (37-47); Hemoglobin 13.8 g/dL (12.0-15.0); Mean Corp Hgb Conc 33.1 g/dL (32-36); Mean Corpuscular Volume 83.7 fL (81-99); Mean Platelet Vol. 9.3 fl (6.2-12.0); Platelet Count 227 K/mm3 (150-450); RBC Distribution Width CV 13.4 % (11.6-14.6); RBC Distribution Width SD 41.1 fl (35.1-43.9); Red Blood Count 4.98 M/mm3 (4.2-5.4); White Blood Count 6.2 K/mm3 (4.4-11.0)
[2025-06-19 10:10] LABS: Creatinine, Urine (random) 215.00 mg/dL (28.00-217.00); Microalbumin,Random Urine < 12.0 mg/L (<20 mg/L)
[2025-06-19 10:27] LABS: PTHIN 82 pg/mL (11-61)
[2025-06-19 10:45] LABS: AST(SGOT) 17 U/L (<=31); Alanine Aminotransfer ALT/SGPT 12 U/L (<=34); Albumin, Serum 4.0 g/dL (3.5-5.0); Alkaline Phosphatase 138 U/L (35-104); Anion Gap 9 (5-15); BUN 20 mg/dL (4-19); BUN/Creat Ratio 22.2 RATIO (10-20); Calcium,Total 9.2 mg/dL (7.6-11.0); Carbon Dioxide 25.0 mmol/L (21.0-32.0); Chloride 105 mmol/L (98-108); Globulin 3.4 g/dL (2.2-4.2); Glucose 93 mg/dL (70-99); Potassium 4.6 mmol/L (3.3-5.1); Vitamin D,25 Hydroxy 25.1 ng/mL (30-100)
[2025-06-19 11:19] LABS: Cholesterol 184 mg/dL (<=200); Low Density Lipoprotein Calc. 122 mg/dL; Triglycerides 139 mg/dL; Very Low Density Lipoprotein 28 mg/dL (5-40); cholesterol:hdl ratio screen 4.96
== END | disposition home or self-care (01) ==
LOC: LAB 09:14
PROVIDERS: PCP Nurse Practitioner Family; Referring Provider Nurse Practitioner Family; Visit Provider Nurse Practitioner Family
DX: I12.9 Hypertensive chronic kidney disease with stage 1 through stage 4 chronic kidney disease, or unspecified chronic kidney disease (principal); N18.30 Chronic kidney disease, stage 3 unspecified; E78.5 Hyperlipidemia, unspecified; E03.9 Hypothyroidism, unspecified
CPT/HCPCS: 36415; 80053; 80061; 82043; 82306; 82570; 83970; 84439; 84443; 85027